=== PATIENT | male | born 1945 | race Caucasian/White ===

== ENCOUNTER → 2017-01-19 | Outpatient (CLI) | payer MEDICARE, BC ==
--- NOTE | 2017-01-19 15:49 | XR ---
EXAMINATION TYPE: XR chest 2V DATE OF EXAM: 01/19/2017 COMPARISON: Prior chest x-ray 12/25/2013 HISTORY: Aortic coronary bypass graft TECHNIQUE: Frontal and lateral views of the chest are obtained. FINDINGS: There is no focal air space opacity, pleural effusion, or pneumothorax seen. The cardiac silhouette size is stable, enlarged. Patient is post median sternotomy. Epicardial pacing leads are p resent. Prominent lung volume may be indicative of COPD. The osseous structures are intact. IMPRESSION: No acute cardiopulmonary process.
== END | disposition home or self-care (01) ==
LOC: RADXRMAIN 09:19
PROVIDERS: ATTEND Internal Medicine Interventional Cardiology
DX: Z09 Encounter for follow-up examination after completed treatment for conditions other than malignant neoplasm (principal); Z95.1 Presence of aortocoronary bypass graft
CPT/HCPCS: 71020

== ENCOUNTER 2017-05-25 07:11 | Day surgery (SDC) | payer MEDICARE, BC ==
[2017-05-19 13:35] VITALS: BMI 21.9
[~2017-05-25 07:11] MED LIST: LACTATED RINGERS 1,000 ML IV SCH; MOXIFLOXACIN HCL 0.5% DROPS 3 ML BTL OP ONE; TETRACAINE 0.5% OPHTH (PF) DROPS 4 ML BTL OP ONE; TIMOLOL 0.5% OPHTH DROPS 5 ML BTL OP ONE
[2017-05-25] MEDS: CYCLOPENTOLATE 1% OPHTH SOLN 2 ML BTL OP ONE ×3 (07:54→08:11)
[2017-05-25] MEDS: PHENYLEPHRINE 2.5% OPHTH DRP 2ML OP NR ×3 (07:57→08:14)
[2017-05-25 08:10] LABS: Glucose,Whole Blood 106 mg/dL (75-99)
[2017-05-25 08:14] VITALS: TEMP 98.2
[2017-05-25] MEDS ORDERED: LIDOCAINE 1% 20 ML VIAL (10MG/ML) FOR IV START INTRADERMA ONE (08:14)
[2017-05-25] MEDS ORDERED: fentaNYL (PF) 50 MCG/ML 2 ML AMP ONE (08:56)
[2017-05-25] MEDS ORDERED: MIDAZOLAM 2 MG/2 ML VIAL ONE (08:56)
[2017-05-25] MEDS ORDERED: LIDOCAINE 1% (PF) 10MG/ML VIAL SQ ONE (09:08)
[2017-05-25] MEDS ORDERED: BALANCED SALT IRRIG SOLN COMB2 15 ML IRRIG.SOLN INTRAOCULA ONE (09:08)
[2017-05-25] MEDS ORDERED: DUOVISC KIT (GREEN BOX) INTRAOCULA ONE (09:09)
--- NOTE | 2017-05-25 09:21 | P.OP ---
Date of Procedure: 05/25/17 Preoperative Diagnosis: NS & CS & PSC Postoperative Diagnosis: same Procedure(s) Performed: PIOL, OD Implants: PCB00 22.00 Anesthesia: MAC Surgeon: Gurdeep Virgen Estimated Blood Loss (ml): 0 Pathology: none sent Condition: stable Disposition: same day Indications for Procedure: blurry vision Operative Findings: No complications
[2017-05-25 10:05] VITALS: RESP 18
[2017-05-25 10:07] VITALS: BP 180/69; PULSE 62
--- NOTE | 2017-05-25 19:35 | OP ---
OPERATIVE REPORT DATE OF SURGERY: 05/25/2017. PROCEDURE: Phacoemulsification of cataract and intraocular lens implant of the right eye. PREOPERATIVE DIAGNOSIS: Nuclear sclerosis, cortical sclerosis. POSTOPERATIVE DIAGNOSIS: Subcapsular cataract. ESTIMATED BLOOD LOSS:: Zero. SPECIMEN TAKEN:: None. NARRATIVE:: After obtaining the appropriate consent, the patient was brought to the operating room, where the patient was placed under cardiac monitoring and prepped and draped in the usual sterile manner. At the 11 o'clock position a 15-degree super sharp blade was used to create a paracentesis followed by instillation of 1% Xylocaine MPF 50:50 mix with BSS into the anterior chamber. This was followed by Duovisc to stabilize the anterior chamber. At the 9 o'clock position a self-sealing corneal flap incision was created using 2.8 mm keena keratome. A cystotome was used to initiate a continuous tear capsulorrhexis which was completed with the Utrata forceps. A Binkhorst cannula was used to hydrodissect the lens nucleus followed by hydrodelineation. Phacoemulsification of the lens was performed utilizing phaco-chop in 16.89 seconds at 11% power. The remaining cortical material was removed using the irrigation aspiration mode followed by additional 1% Xylocaine MPF into the anterior chamber followed by viscoelastic to stabilize the capsular bag. An HARVINDER PCB 00 22.0 diopter posterior chamber lens was placed into the capsular bag without difficulty. The remaining viscoelastic material was removed from the anterior chamber with the irrigation/aspiration. Balanced salt solution was used to normalize the intraocular pressure. The incision was checked for watertight integrity. The patient then received two drops of 0.5% timolol followed by two drops Vigamox, was lightly patched and shielded in the usual manner. There were no complications from the procedure. The patient tolerated the procedure well and was returned to recovery in good condition. MMODL / IJN: [id number] /
== END 2017-05-25 10:07 | disposition home or self-care (01) ==
LOC: OR 07:11
PROVIDERS: ATTEND Ophthalmology
DX: H25.13 Age-related nuclear cataract, bilateral (principal); H35.033 Hypertensive retinopathy, bilateral; I10 Essential (primary) hypertension; H52.03 Hypermetropia, bilateral; E78.5 Hyperlipidemia, unspecified; J44.9 Chronic obstructive pulmonary disease, unspecified; Z87.891 Personal history of nicotine dependence; M19.90 Unspecified osteoarthritis, unspecified site; Z79.82 Long term (current) use of aspirin; Z79.891 Long term (current) use of opiate analgesic; Z79.899 Other long term (current) drug therapy; Z91.018 Allergy to other foods
CPT/HCPCS: 66984; C1780; J2250; J3010; J2001

== ENCOUNTER → 2017-07-13 | Day surgery (SDC) | payer MEDICARE, BC ==
[2017-07-07 15:58] VITALS: BMI 21.9
[~2017-07-13] MED LIST changes: +LIDOCAINE 1% 20 ML VIAL (10MG/ML) FOR IV START INTRADERMA PRN; +LIDOCAINE 1% INJ 10MG/ML (20 ML MDV) ONE; -MOXIFLOXACIN HCL 0.5% DROPS 3 ML BTL OP ONE; +PROPOFOL 10 MG/ML 20 ML VIAL IV ONE; -TETRACAINE 0.5% OPHTH (PF) DROPS 4 ML BTL OP ONE; -TIMOLOL 0.5% OPHTH DROPS 5 ML BTL OP ONE
[2017-07-13 07:43] VITALS: RESP 16; TEMP 98.8
--- NOTE | 2017-07-13 08:11 | P.GSHP ---
History of Present Illness H&P Date: 07/13/17 CHIEF COMPLAINT: GERD and colon screen HISTORY OF PRESENT ILLNESS: The patient is a 72-year-old male who presents with gastroesophageal reflux disease and need for colon screen. Upper and lower endoscopy were offered for further evaluation and management. PAST MEDICAL HISTORY: Please see list. PAST SURGICAL HISTORY: Please see list. MEDICATIONS: Please see list. ALLERGIES: Please see list. SOCIAL HISTORY: No illicit drug use FAMILY HISTORY: No reports of Crohn disease or ulcerative colitis. REVIEW OF ORGAN SYSTEMS: CONSTITUTIONAL: No reports of fevers or chills. GI: Denies any blood in stools or constipation. PHYSICAL EXAM: VITAL SIGNS: Stable GENERAL: Well-developed pleasant in no acute distress. HEENT: No scleral icterus. Extraocular movements grossly intact. Moist buccal mucosa. NECK: Supple without lymphadenopathy. CHEST: Unlabored respirations. Equal bilateral excursions. CARDIOVASCULAR: Regular rate and rhythm. Distal 2+ pulses. ABDOMEN: Soft, nondistended. MUSCULOSKELETAL: No clubbing, cyanosis, or edema. ASSESSMENT: 1. Gastroesophageal reflux disease 2. Colon screen. PLAN: 1. Recommend proceeding with an upper and lower endoscopy Past Medical History Past Medical History: COPD, Hyperlipidemia, Hypertension, Myocardial Infarction (CA), Osteoarthritis (OA), Vascular Disorder Additional Past Medical History / Comment(s): migraines, poor circulation legs, occ "heart fluttering", SOB with activity, arthritis Last Myocardial Infarction Date:: 2006 History of Any Multi-Drug Resistant Organisms: None Reported Past Surgical History: Appendectomy, Coronary Bypass/CABG, Heart Catheterization With Stent Additional Past Surgical History / Comment(s): TRIPLE CABG 2006. STENTS PAT LEGS. EXC RT CATARACT 05/25/17. Past Anesthesia/Blood Transfusion Reactions: No Reported Reaction Date of Last Stent Placement:: 2004 Smoking Status: Current some day smoker - Past Family History Mother Family Medical History: Cancer Medications and Allergies Home Medications Medication Instructions Recorded Confirmed Type Atorvastatin [Lipitor] 80 mg PO DAILY 12/25/13 07/13/17 History Hydrocodone/Acetaminophen 1 tab PO Q6HR PRN 12/25/13 07/13/17 History [Hydrocodone/Acetaminophen 10-325] Metoprolol Tartrate [Lopressor] 50 mg PO BID 12/25/13 07/13/17 History amLODIPine BESYLATE [Norvasc] 5 mg PO DAILY 12/25/13 07/13/17 History hydrALAZINE HCL [Apresoline] 50 mg PO TID 12/25/13 07/13/17 History Aspirin [Adult Low Dose Aspirin EC] 81 mg PO QAM 05/19/17 07/13/17 History Budesonide-Formot 160-4.5 Mcg 2 puff INHALATION BID PRN 05/19/17 07/13/17 History [Symbicort 160-4.5 Mcg Inhaler] Cholecalciferol [Vitamin D3] 10,000 unit PO DAILY 07/07/17 07/13/17 History Allergies Allergy/AdvReac Type Severity Reaction Status Date / Time No Known Allergies Allergy Verified 07/13/17 07:30 Surgical - Exam Vital Signs Temp Pulse Resp BP Pulse Ox 98.8 F 74 16 182/79 98 07/13/17 07:42 07/13/17 07:42 07/13/17 07:42 07/13/17 07:42 07/13/17 07:42
--- NOTE | 2017-07-13 08:46 | P.PCN ---
Date of Procedure: 07/13/17 Description of Procedure: PREOPERATIVE DIAGNOSIS: History of hematemesis History of esophageal ulcers POSTOPERATIVE DIAGNOSIS: History of hematemesis History of esophageal ulcers Gastritis with superficial bleeding Gastroesophageal reflux disease. Diaphragmatic hiatal hernia without obstruction. OPERATION: Esophagogastroduodenoscopy with biopsies along antrum. SURGEON: Mora Harris MD ANESTHESIA: MAC. INDICATIONS: The patient is a 72-year-old male who presents with a history of esophageal ulcers with bleeding. Benefits and risks of the procedure were described. Informed consent was obtained. DESCRIPTION: The patient was brought into the endoscopy suite and laid in the left lateral decubitus position. An Olympus gastroscope was passed along the posterior oropharynx down to the distal esophagus where the squamocolumnar junction was encountered at 40 cm from the incisors. The stomach was entered and bile reflux was found. Additional findings are listed below. Biopsies with cold forceps were obtained of the antrum. The first through third portion of the duodenum was examined and unremarkable. Retroflexion of the scope confirmed Hill grade 2 lower esophageal valve. The squamocolumnar junction demostrated LA grade B erosive esophagitis. The stomach was desufflated. The patient tolerated the procedure well. FINDINGS: Squamocolumnar junction 40 cm from the incisors. Diaphragmatic hiatus at 43 cm. Hiatal hernia 3 cm. Hill grade 2 lower esophageal valve. LA grade B erosive esophagitis. No active duodenitis. Gastritis with superficial bleeding. RECOMMENDATIONS: Further recommendations pending results of pathology report. Upper endoscopy as needed.
--- NOTE | 2017-07-13 09:02 | P.PCN ---
Date of Procedure: 07/13/17 Description of Procedure: PREOPERATIVE DIAGNOSIS: Colonoscopy screening. POSTOPERATIVE DIAGNOSIS: Colonoscopy screening. Multiple tubular adenomas throughout the colon. External hemorrhoids, grade 3. Internal hemorrhoids, grade 3 OPERATION: Colonoscopy to the ileocecal valve and appendiceal orifice. Colonoscopy with snare biopsies. Colonoscopy with cold forceps biopsies. SURGEON: Mora Harris MD. ANESTHESIA: MAC. INDICATIONS: The patient is a 72-year-old male who presents for colonoscopy screening. Last colonoscopy was 5 years ago. Benefits and risks were described and informed consent was obtained. DESCRIPTION OF PROCEDURE: The patient had undergone Gatorade, MiraLAX and Dulcolax prep. He had been brought into the operating room and laid in the left lateral decubitus position. After adequate intravenous sedation, the rectum was examined with 2% lidocaine jelly. The prostate was smooth and without abnormality. External hemorrhoids were encountered. The rectal tone was within normal limits. No lesions were palpated in the rectal vault. An Olympus colonoscope was advanced until the ileocecal valve and appendiceal orifice were clearly viewed. The prep was fair with visualization of the mucosal folds. The scope was removed with visualization of each mucosal fold. No scattered diverticulosis was encountered. Multiple colonic polyps were found and cold forcep biopsy or snare polypectomy. No evidence of focal colitis was found. Retroflexion of the scope demonstrated grade 3 internal hemorrhoids without active bleeding or inflammation. The colon was desufflated. The patient had tolerated the procedure well. Withdrawal time was over 6 minutes. FINDINGS: Internal hemorrhoids, grade 3 External hemorrhoids, grade 3. No arteriovenous malformations. Removal of 2 polyps: - Snare polypectomy at the cecum, 10 mm tubulovillous adenoma polyp. - Cold forceps biopsy at 50 cm from the anal verge, 4 mm polyp. No focal colitis. RECOMMENDATIONS: Repeat colonoscopy 1 year, 2019. Plan - Discharge Summary New Discharge Prescriptions: New Omeprazole 20 mg PO DAILY #30 capsule.dr Huitron Action hydrALAZINE HCL [Apresoline] 50 mg PO TID amLODIPine BESYLATE [Norvasc] 5 mg PO DAILY Metoprolol Tartrate [Lopressor] 50 mg PO BID Atorvastatin [Lipitor] 80 mg PO DAILY Hydrocodone/Acetaminophen [Hydrocodone/Acetaminophen 10-325] 1 tab PO Q6HR PRN PRN Reason: Pain Aspirin [Adult Low Dose Aspirin EC] 81 mg PO QAM Budesonide-Formot 160-4.5 Mcg [Symbicort 160-4.5 Mcg Inhaler] 2 puff INHALATION BID PRN PRN Reason: sob Cholecalciferol [Vitamin D3] 10,000 unit PO DAILY Discharge Medication List Atorvastatin [Lipitor] 80 mg PO DAILY 12/25/13 [History] Hydrocodone/Acetaminophen [Hydrocodone/Acetaminophen 10-325] 1 tab PO Q6HR PRN 12/25/13 [History] Metoprolol Tartrate [Lopressor] 50 mg PO BID 12/25/13 [History] amLODIPine BESYLATE [Norvasc] 5 mg PO DAILY 12/25/13 [History] hydrALAZINE HCL [Apresoline] 50 mg PO TID 12/25/13 [History] Aspirin [Adult Low Dose Aspirin EC] 81 mg PO QAM 05/19/17 [History] Budesonide-Formot 160-4.5 Mcg [Symbicort 160-4.5 Mcg Inhaler] 2 puff INHALATION BID PRN 05/19/17 [History] Cholecalciferol [Vitamin D3] 10,000 unit PO DAILY 07/07/17 [History] Omeprazole 20 mg PO DAILY #30 capsule. 07/13/17 [Rx]
[2017-07-13 09:25] VITALS: BP 179/76; PULSE 70
--- NOTE | 2017-07-15 02:15 | CDI ---
Outpatient Documentation Clarification Form Date: 07/15/2017 CDS/Linker Up Name: Camden Oconnell Phone: If any questions, call Jordyn Ash Data Integrity Analyst at [phone] Patient Name: Antonio Duncan Admit Date: 07/13/2017 Discharge Date: 07/13/2017 ATTENTION: The [facility] Coding Staff appreciate your assistance in clarifying documentation. Please respond to the clarification below the line at the bottom and electronically sign. The [facility] Coding staff will review the response and follow-up if needed. Please note: Queries are made part of the Legal Health Record. If you have any questions, please contact the Data Integrity Analyst. Dear Dr. Harris, As per operative notes polypectomy was done. Snare polypectomy was done at cecum, cold biopsy forceps polypectomy was done at 50cm from the anal verge, 4mm polyp. Based on your clinical opinion please mention which anatomical location of colon represent 50cm from the anal verge. Thank you for your kind consideration. PLEASE SEE AMENDED REPORT...DESCENDING COLON MTDD
== END | disposition home or self-care (01) ==
LOC: ORWHC2ENDO 06:57
PROVIDERS: ATTEND Surgery Plastic and Reconstructive Surgery
DX: Z12.11 Encounter for screening for malignant neoplasm of colon (principal); D12.4 Benign neoplasm of descending colon; D12.0 Benign neoplasm of cecum; K29.71 Gastritis, unspecified, with bleeding; K21.9 Gastro-esophageal reflux disease without esophagitis; I25.2 Old myocardial infarction; E78.5 Hyperlipidemia, unspecified; I10 Essential (primary) hypertension; K22.10 Ulcer of esophagus without bleeding; I25.10 Atherosclerotic heart disease of native coronary artery without angina pectoris; J44.9 Chronic obstructive pulmonary disease, unspecified; K64.4 Residual hemorrhoidal skin tags; K64.2 Third degree hemorrhoids; F17.200 Nicotine dependence, unspecified, uncomplicated; K44.9 Diaphragmatic hernia without obstruction or gangrene; M19.90 Unspecified osteoarthritis, unspecified site; G43.909 Migraine, unspecified, not intractable, without status migrainosus; Z95.1 Presence of aortocoronary bypass graft; Z95.5 Presence of coronary angioplasty implant and graft; Z79.899 Other long term (current) drug therapy; Z79.82 Long term (current) use of aspirin; Z87.11 Personal history of peptic ulcer disease
CPT/HCPCS: 88305; 45385; 45380; 43239; J2001; J2704

== ENCOUNTER 2017-08-03 06:31 | Day surgery (SDC) | payer MEDICARE, BC ==
[2017-07-28 12:44] VITALS: BMI 21.9
[~2017-08-03 06:31] MED LIST changes: +DEXAMETHASONE SOD PHOSPHATE 10 MG/ML 1 ML VIAL IV ONE; -LIDOCAINE 1% 20 ML VIAL (10MG/ML) FOR IV START INTRADERMA PRN; -LIDOCAINE 1% INJ 10MG/ML (20 ML MDV) ONE; +MORPHINE SULFATE 4 MG/ML SYRINGE IV PRN; +MOXIFLOXACIN HCL 0.5% DROPS 3 ML BTL OP ONE; +ONDANSETRON ODT 4 MG TAB PO ONE; -PROPOFOL 10 MG/ML 20 ML VIAL IV ONE; +TETRACAINE 0.5% OPHTH (PF) DROPS 4 ML BTL OP ONE; +TIMOLOL 0.5% OPHTH DROPS 5 ML BTL OP ONE
[2017-08-03] MEDS: CYCLOPENTOLATE 1% OPHTH SOLN 2 ML BTL OP ONE ×3 (07:02→07:13)
[2017-08-03] MEDS: PHENYLEPHRINE 2.5% OPHTH DRP 2ML OP NR ×3 (07:05→07:16)
[2017-08-03 07:27] VITALS: RESP 18; TEMP 99.2
[2017-08-03] MEDS ORDERED: hydrALAZINE HCL 20 MG/ML 1 ML VIAL ONE (08:06)
[2017-08-03] MEDS ORDERED: MIDAZOLAM 2 MG/2 ML VIAL ONE (08:06)
[2017-08-03] MEDS ORDERED: fentaNYL (PF) 50 MCG/ML 2 ML AMP ONE (08:06)
[2017-08-03] MEDS ORDERED: LACTATED RINGERS 1,000 ML IV ONE (08:06)
[2017-08-03] MEDS ORDERED: HYALURONATE SODIUM INTRAOCULAR 1 EACH SYRINGE (12MG/ML) INTRAOCULA ONE (08:11)
[2017-08-03] MEDS ORDERED: LIDOCAINE 1% (PF) 10MG/ML VIAL MISCELLANE ONE (08:12)
[2017-08-03] MEDS ORDERED: BALANCED SALT IRRIG SOLN COMB2 15 ML IRRIG.SOLN INTRAOCULA ONE (08:12)
[2017-08-03] MEDS ORDERED: EPINEPHrine (PF) 0.3 ML in BALANCED SALT IRRIG SOLN COMB2 500 ML IRRIGATION ONE (08:13)
--- NOTE | 2017-08-03 08:37 | P.OP ---
Date of Procedure: 08/03/17 Preoperative Diagnosis: Ns & CS Postoperative Diagnosis: same Procedure(s) Performed: PIOL, OS Implants: PCB0 22.50 Anesthesia: MAC Surgeon: Gurdeep Virgen Estimated Blood Loss (ml): 0 Pathology: none sent Condition: stable Disposition: same day Indications for Procedure: blurry vision Operative Findings: same
[2017-08-03] MEDS ORDERED: hydrALAZINE HCL 20 MG/ML 1 ML VIAL IVP ONE ×2 (09:16→09:43)
[2017-08-03 10:01] VITALS: BP 183/69; PULSE 63
--- NOTE | 2017-08-03 14:17 | OP ---
OPERATIVE REPORT DATE OF SURGERY: August 03, 2017. PROCEDURE PERFORMED: Phacoemulsification of cataract and intraocular lens implant of the left eye. PATHOLOGICAL TECHNICIAN:: PREOPERATIVE DIAGNOSES: Nuclear sclerosis. Cortical sclerosis. POSTOPERATIVE DIAGNOSES: Nuclear sclerosis. Cortical sclerosis. OPERATION:: Clear cornea phacoemulsification of cataract OS eye. ESTIMATED BLOOD LOSS:: Zero. SPECIMEN TAKEN:: None. NARRATIVE:: After obtaining the appropriate consent, the patient was brought to the Operating Room where the patient was placed under cardiac monitoring and prepped and draped in the usual sterile manner. At the 5 o'clock position a 15 degree super sharp blade was used to create a paracentesis followed by instillation of 1% Xylocaine MPF 50:50 mix with BSS into the anterior chamber. This was followed by Amvisc to stabilize the anterior chamber. At the 3 o'clock position a self-sealing corneal flap incision was created using 2.8 mm keena keratome. A cystatome was used to initiate a continuous tear capsulorrhexis which was completed with the Utrata forceps. A Binkhorst cannula was used to hydrodissect the lens nucleus followed by hydrodelineation. Phacoemulsification of the lens was performed utilizing phacochop in 13.98 Seconds at 10 % power. The remaining cortical material was removed using the irrigation aspiration mode followed by additional 1% Xylocaine MPF into the anterior chamber followed by viscoelastic to stabilize the capsular bag. An HARVINDER PZB 00 22.5 diopter posterior chamber lens was placed into the capsular bag without difficulty. The remaining viscoelastic material was removed from the anterior chamber with the irrigation/aspiration. Balanced salt solution was used to normalize the intraocular pressure. The incision was checked for watertight integrity. The patient then received two drops of 0.5% timolol followed by two drops Vigamox, was lightly patched and shielded in the usual manner. There were no complications from the procedure. The patient tolerated the procedure well and was returned to recovery in good condition. MMODL / IJN: [id number] /
== END 2017-08-03 10:15 | disposition home or self-care (01) ==
LOC: OR 06:31
PROVIDERS: ATTEND Ophthalmology
DX: H25.12 Age-related nuclear cataract, left eye (principal); I25.10 Atherosclerotic heart disease of native coronary artery without angina pectoris; I25.2 Old myocardial infarction; I10 Essential (primary) hypertension; E78.5 Hyperlipidemia, unspecified; I48.91 Unspecified atrial fibrillation; M19.90 Unspecified osteoarthritis, unspecified site; Z95.5 Presence of coronary angioplasty implant and graft; I73.9 Peripheral vascular disease, unspecified; Z79.82 Long term (current) use of aspirin; Z79.899 Other long term (current) drug therapy; Z95.1 Presence of aortocoronary bypass graft; Z82.61 Family history of arthritis; Z87.891 Personal history of nicotine dependence; Z98.41 Cataract extraction status, right eye
CPT/HCPCS: 66984; C1780; J2250; J0360; J0171; J3010; J2001

== ENCOUNTER 2017-10-26 04:41 | Inpatient (IN) | payer MEDICARE, BC ==
[2017-10-26] MEDS ORDERED: SODIUM CHLORIDE 0.9% 500 ML IV STA (04:54)
[2017-10-26] MEDS ORDERED: ALBUTEROL NEBULIZED 2.5 MG/3 ML INHALATION STA (04:54)
[2017-10-26] MEDS ORDERED: IPRATROPIUM 0.5 MG/2.5 ML NEBU INHALATION STA (04:54)
[2017-10-26] MEDS ORDERED: methylPREDNISolone SOD SUCCI 125 MG/2 ML VIAL IV STA (04:54)
[2017-10-26] MEDS ORDERED: hydrALAZINE HCL 20 MG/ML 1 ML VIAL IVP STA (04:59)
--- NOTE | 2017-10-26 04:59 | ED ---
General Adult HPI - General Source: patient, RN notes reviewed Mode of arrival: wheelchair Limitations: physical limitation <John Gunderson - Last Filed: 10/26/17 06:47> <John Kraus - Last Filed: 10/26/17 08:03> - General Chief complaint: Shortness of Breath Stated complaint: BRYSON Time Seen by Provider: 10/26/17 04:41 - History of Present Illness Initial comments: This is a 72-year-old male presents emergency department with past medical history significant for bypass surgery COPD and congestive heart failure. Patient states last couple days he's been out of his Ventolin inhaler. Patient comes in complaining of difficulty breathing 2. Patient denies any fever chills or cough. Patient denies any chest pain or palpitations. Patient denies abdominal pain patient denies nausea vomiting diarrhea. Patient denies any lightheadedness dizziness or near syncopal episode. Patient denies any headache patient denies numbness or weakness. (John Gunderson) - Related Data Home Medications Medication Instructions Recorded Confirmed Atorvastatin [Lipitor] 80 mg PO DAILY 12/25/13 10/26/17 Hydrocodone/Acetaminophen 1 tab PO Q6HR PRN 12/25/13 10/26/17 [Hydrocodone/Acetaminophen 10-325] Metoprolol Tartrate [Lopressor] 50 mg PO BID 12/25/13 10/26/17 amLODIPine BESYLATE [Norvasc] 5 mg PO DAILY 12/25/13 10/26/17 hydrALAZINE HCL [Apresoline] 50 mg PO TID 12/25/13 10/26/17 Aspirin [Adult Low Dose Aspirin EC] 81 mg PO QAM 05/19/17 10/26/17 Budesonide-Formot 160-4.5 Mcg 2 puff INHALATION RT-BID 05/19/17 10/26/17 [Symbicort 160-4.5 Mcg Inhaler] Albuterol Inhaler [Ventolin Hfa 1 - 2 puff INHALATION RT-Q6H PRN 10/26/17 Inhaler] Allergies Allergy/AdvReac Type Severity Reaction Status Date / Time No Known Allergies Allergy Verified 10/26/17 07:38 Review of Systems ROS Other: All systems not noted in ROS Statement are negative. <John Gunderson - Last Filed: 10/26/17 06:47> ROS Other: All systems not noted in ROS Statement are negative. <StephanieranjansamiraJohn Alfonso - Last Filed: 10/26/17 08:03> ROS Statement: Those systems with pertinent positive or pertinent negative responses have been documented in the HPI. Past Medical History Past Medical History: COPD, Hyperlipidemia, Hypertension, Myocardial Infarction ([place]), Osteoarthritis (OA), Vascular Disorder Additional Past Medical History / Comment(s): migraines, poor circulation legs, occ "heart fluttering", SOB with activity, arthritis Last Myocardial Infarction Date:: 2006 History of Any Multi-Drug Resistant Organisms: None Reported Past Surgical History: Appendectomy Additional Past Surgical History / Comment(s): TRIPLE CABG 2006. STENTS PAT LEGS. EXC bilat CATARACT 05/25/17., Past Anesthesia/Blood Transfusion Reactions: No Reported Reaction Date of Last Stent Placement:: 2004 Past Psychological History: No Psychological Hx Reported Smoking Status: Current every day smoker Past Alcohol Use History: None Reported Past Drug Use History: None Reported - Past Family History Mother Family Medical History: Cancer <John Gunderson - Last Filed: 10/26/17 06:47> General Exam Limitations: physical limitation <John Gunderson - Last Filed: 10/26/17 06:47> General appearance: alert, anxious, in distress Head exam: Present: atraumatic, normocephalic, normal inspection Eye exam: Present: normal appearance, PERRL, EOMI. Absent: scleral icterus, conjunctival injection, periorbital swelling ENT exam: Present: normal exam, mucous membranes moist Neck exam: Present: normal inspection. Absent: tenderness, meningismus, lymphadenopathy Respiratory exam: Present: respiratory distress, wheezes, accessory muscle use, decreased breath sounds, prolonged expiratory. Absent: rales, rhonchi, stridor Cardiovascular Exam: Present: regular rate, normal rhythm, normal heart sounds. Absent: systolic murmur, diastolic murmur, rubs, gallop, clicks GI/Abdominal exam: Present: soft, normal bowel sounds. Absent: distended, tenderness, guarding, rebound, rigid Extremities exam: Present: normal inspection, full ROM, normal capillary refill. Absent: tenderness, pedal edema, joint swelling, calf tenderness Back exam: Present: normal inspection Neurological exam: Present: alert, oriented X3, CN II-XII intact Psychiatric exam: Present: normal affect, normal mood Skin exam: Present: warm, dry, intact, normal color. Absent: rash <John Kraus - Last Filed: 10/26/17 08:03> - General Exam Comments Initial Comments: GENERAL: Patient is well-developed and well-nourished. Patient is nontoxic and well- hydrated and is in moderate distress. ENT: Neck is soft and supple. No significant lymphadenopathy is noted. Oropharynx is clear. Moist mucous membranes. Neck has full range of motion without eliciting any pain. EYES: The sclera were anicteric and conjunctiva were pink and moist. Extraocular movements were intact and pupils were equal round and reactive to light. Eyelids were unremarkable. PULMONARY: Patient is oxygenating at about 80% on room air. Patient is diffuse wheezing and decreased breath sounds. CARDIOVASCULAR: There is a regular rate and rhythm without any murmurs gallops or rubs. ABDOMEN: Soft and nontender with normal bowel sounds. No palpable organomegaly was noted. There is no palpable pulsatile mass. SKIN: Skin is clear with no lesions or rashes and otherwise unremarkable. NEUROLOGIC: Patient is alert and oriented x3. Cranial nerves II through XII are grossly intact. Motor and sensory are also intact. Normal speech, volume and content. Symmetrical smile. MUSCULOSKELETAL: Normal extremities with adequate strength and full range of motion. No lower extremity swelling or edema. No calf tenderness. LYMPHATICS: No significant lymphadenopathy is noted PSYCHIATRIC: Normal psychiatric evaluation. Normal interpersonal interactions appears functionally intact in deals appropriately with others. No signs of depression. No signs of anxiety. (John Gunderson) Course <John Gunderson - Last Filed: 10/26/17 06:47> <John Kraus - Last Filed: 10/26/17 08:03> Vital Signs 10/26/17 10/26/17 10/26/17 04:43 05:00 05:15 Temperature 97.7 F Pulse Rate 77 68 60 Respiratory 28 H 20 Rate Blood Pressure 211/51 171/76 O2 Sat by Pulse 79 L 94 L Oximetry 10/26/17 10/26/17 10/26/17 05:40 05:49 06:00 Temperature Pulse Rate 64 64 64 Respiratory 22 16 Rate Blood Pressure 172/74 199/81 O2 Sat by Pulse 90 L 95 Oximetry - Reevaluation(s) Reevaluation #1: 10/26/17 08:03 Patient had a persistent shortness of breath, will be given recurrent breathing treatments here in the emergency room (John Kraus) Medical Decision Making - Lab Data Result diagrams: 10/26/17 04:58 10/26/17 04:58 <John Gunderson - Last Filed: 10/26/17 06:47> - Lab Data Result diagrams: 10/26/17 04:58 10/26/17 04:58 - Radiology Data Radiology results: report reviewed (CTA of chest is positive CHF), image reviewed <John Kraus - Last Filed: 10/26/17 08:03> - Medical Decision Making EKG shows normal sinus rhythm at 64 bpm OH interval 244 QRS is under QT interval 444 QTC is 458. Patient's EKG shows no ST segment elevation or depression there is however some peaked T waves in the precordial leads. Which may be secondary to LVH Dr. Kraus will be taking over the care of this patient at 7 AM (John Gunderson) 72 male the ER for evaluation, QRS for secondary to multifactorial COPD, high- output heart failure secondary to anemia, patient is to be admitted for diuresis , breathing treatments, continued BiPAP (John Kraus) - Lab Data Lab Results 10/26/17 10/26/17 10/26/17 Range/Units 04:58 04:58 04:58 WBC (3.8-10.6) k/uL RBC (4.30-5.90) m/uL Hgb (13.0-17.5) gm/dL Hct (39.0-53.0) % MCV (80.0-100.0) fL MCH (25.0-35.0) pg MCHC (31.0-37.0) g/dL RDW (11.5-15.5) % Plt Count (150-450) k/uL Neutrophils % % Lymphocytes % % Monocytes % % Eosinophils % % Basophils % % Neutrophils # (1.3-7.7) k/uL Lymphocytes # (1.0-4.8) k/uL Monocytes # (0-1.0) k/uL Eosinophils # (0-0.7) k/uL Basophils # (0-0.2) k/uL Hypochromasia Anisocytosis PT 9.8 (9.0-12.0) sec INR 1.0 (<1.2) APTT 22.6 (22.0-30.0) sec D-Dimer 2.02 H (<0.60) mg/L FEU Sodium 143 (137-145) mmol/L Potassium 5.2 H (3.5-5.1) mmol/L Chloride 110 H (98-107) mmol/L Carbon Dioxide 21 L (22-30) mmol/L Anion Gap 12 mmol/L BUN 32 H (9-20) mg/dL Creatinine 1.47 H (0.66-1.25) mg/dL Est GFR (CKD-EPI)AfAm 54 (>60 ml/min/1.73 sqM) Est GFR (CKD-EPI)NonAf 46 (>60 ml/min/1.73 sqM) Glucose 153 H (74-99) mg/dL Calcium 9.3 (8.4-10.2) mg/dL Magnesium 2.4 H (1.6-2.3) mg/dL Total Bilirubin 0.8 (0.2-1.3) mg/dL AST 21 (17-59) U/L ALT 28 (21-72) U/L Alkaline Phosphatase 77 (38-126) U/L Total Creatine Kinase (55-170) U/L CK-MB (CK-2) (0.0-2.4) ng/mL CK-MB (CK-2) Rel Index Troponin I (0.000-0.034) ng/mL NT-Pro-B Natriuret Pep 2360 pg/mL Total Protein 6.5 (6.3-8.2) g/dL Albumin 4.1 (3.5-5.0) g/dL Blood Type Blood Type Recheck Antibody Screen Spec Expiration Date 10/26/17 10/26/17 10/26/17 Range/Units 04:58 04:58 04:58 WBC 9.7 (3.8-10.6) k/uL RBC 3.33 L (4.30-5.90) m/uL Hgb 8.7 L (13.0-17.5) gm/dL Hct 28.8 L (39.0-53.0) % MCV 86.4 (80.0-100.0) fL MCH 26.2 (25.0-35.0) pg MCHC 30.3 L (31.0-37.0) g/dL RDW 16.9 H (11.5-15.5) % Plt Count 287 (150-450) k/uL Neutrophils % 81 % Lymphocytes % 12 % Monocytes % 5 % Eosinophils % 0 % Basophils % 0 % Neutrophils # 7.8 H (1.3-7.7) k/uL Lymphocytes # 1.1 (1.0-4.8) k/uL Monocytes # 0.5 (0-1.0) k/uL Eosinophils # 0.0 (0-0.7) k/uL Basophils # 0.0 (0-0.2) k/uL Hypochromasia Marked Anisocytosis Slight PT (9.0-12.0) sec INR (<1.2) APTT (22.0-30.0) sec D-Dimer (<0.60) mg/L FEU Sodium (137-145) mmol/L Potassium (3.5-5.1) mmol/L Chloride (98-107) mmol/L Carbon Dioxide (22-30) mmol/L Anion Gap mmol/L BUN (9-20) mg/dL Creatinine (0.66-1.25) mg/dL Est GFR (CKD-EPI)AfAm (>60 ml/min/1.73 sqM) Est GFR (CKD-EPI)NonAf (>60 ml/min/1.73 sqM) Glucose (74-99) mg/dL Calcium (8.4-10.2) mg/dL Magnesium (1.6-2.3) mg/dL Total Bilirubin (0.2-1.3) mg/dL AST (17-59) U/L ALT (21-72) U/L Alkaline Phosphatase (38-126) U/L Total Creatine Kinase 94 (55-170) U/L CK-MB (CK-2) 1.3 (0.0-2.4) ng/mL CK-MB (CK-2) Rel Index 1.4 Troponin I 0.084 H* (0.000-0.034) ng/mL NT-Pro-B Natriuret Pep pg/mL Total Protein (6.3-8.2) g/dL Albumin (3.5-5.0) g/dL Blood Type A Positive Blood Type Recheck No Antibody Screen NEGATIVE Spec Expiration Date 10/29/2017 - 6435 Critical Care Time Critical Care Time: Yes Total Critical Care Time: 31 <John Kraus - Last Filed: 10/26/17 08:03> Disposition <John Gunderson - Last Filed: 10/26/17 06:47> Is patient prescribed a controlled substance at d/c from ED?: No <John Kraus - Last Filed: 10/26/17 08:03> Clinical Impression: Anemia, Acute exacerbation of chronic obstructive airways disease, Acute pulmonary edema, Congestive heart failure, Acute respiratory failure Disposition: ADMITTED IP TO THIS HOSP Condition: Serious Referrals: Víctor Smiley MD [Primary Care Provider] - 1-2 days
[2017-10-26 05:28] LABS: Anisocytosis Slight; Basophils % (A) 0 %; Eosinophils % (A) 0 %; HCT 28.8 % (39.0-53.0); HGB 8.7 gm/dL (13.0-17.5); Hypochromasia Marked; Lymphocytes # (A) 1.1 k/uL (1.0-4.8); Lymphocytes % (A) 12 %; MCH 26.2 pg (25.0-35.0); MCHC 30.3 g/dL (31.0-37.0); MCV 86.4 fL (80.0-100.0); Mean Platelet Volume 7.6; Monocytes # (A) 0.5 k/uL (0-1.0); Monocytes % (A) 5 %; Neutrophils # (A) 7.8 k/uL (1.3-7.7); Neutrophils % (A) 81 %; Platelet Count 287 k/uL (150-450); RBC 3.33 m/uL (4.30-5.90); RDW 16.9 % (11.5-15.5); WBC 9.7 k/uL (3.8-10.6)
[2017-10-26 05:37] LABS: Albumin 4.1 g/dL (3.5-5.0); Calcium 9.3 mg/dL (8.4-10.2); Magnesium 2.4 mg/dL (1.6-2.3); Potassium 5.2 mmol/L (3.5-5.1); Total Bilirubin 0.8 mg/dL (0.2-1.3); Total Protein 6.5 g/dL (6.3-8.2)
[2017-10-26 05:45] LABS: Partial Thromboplastin Time 22.6 sec (22.0-30.0); Prothrombin Time 9.8 sec (9.0-12.0)
[2017-10-26 06:08] LABS: D-Dimer 2.02 mg/L FEU (<0.60)
[2017-10-26 06:16] LABS: Creatine Kinase MB 1.3 ng/mL (0.0-2.4)
[2017-10-26 06:27] LABS: Troponin I 0.084 ng/mL (0.000-0.034)
--- NOTE | 2017-10-26 06:43 | XR ---
EXAM: XR Chest, 2 Views CLINICAL HISTORY: ITS.REASON XR Reason: difficulty breathing TECHNIQUE: Frontal and lateral views of the chest. COMPARISON: Chest x-ray dated 01/19/2017. FINDINGS: Lungs: Mild prominence of perihilar and interstitial structures suspicious for pulmonary edema/congestion. Underlying infection is possible, especially in the left lower lobe. Pleural space: Small right pleural effusion. No pneumothorax. Heart: Mild cardiomegaly. Mediastinum: Unremarkable. Bones/joints: Prior sternotomy. Moderate degenerative changes of the thoracic spine. Vasculature: Calcification of the aortic arch. IMPRESSION: 1. Small right pleural effusion. 2. Mild prominence of perihilar and interstitial structures suspicious for pulmonary edema/congestion. Underlying infection is possible, especially in the left lower lobe.
--- NOTE | 2017-10-26 07:58 | CT ---
EXAMINATION TYPE: CT chest angio for PE DATE OF EXAM: 10/26/2017 COMPARISON: Chest x-ray same date HISTORY: SOB CT DLP: 461 mGycm Automated exposure control for dose reduction was used. CONTRAST: CT Chest for pulmonary embolism performed with with IV Contrast, patient injected with 44 mL of Isovu e 370. FINDINGS: LUNGS: Bibasilar effusions are present with associated atelectasis. Interstitium is increased at the lung bases. Emphysematous changes are present within the lungs and are extensive. Some minimal inflam matory change suspected in the right upper lobe anteriorly, there may be some focal scarring axial im age 33 extending to the pleura. MEDIASTINUM: Borderline enlarged retrocaval pretracheal node is present, there are some small prevasc ular nodes. No filling defect evident to suggest pulmonary embolism, contrast bolus somewhat limited. AORTA: There are dense coronary artery calcifications, atheromatous calcifications present at the ao rta, there is no evident aneurysm or dissection. OTHER: Patient is post median sternotomy. Multiple calcifications present within the spleen compatib le with old granulomatous disease. IMPRESSION: Correlate for possible congestive heart failure with bilateral pleural effusions. Pulmonary embolism is not evident as described.
[2017-10-26] MEDS ORDERED: IPRATROPIUM-ALBUTEROL 3 ML NEB INHALATION STA (08:01)
[2017-10-26] MEDS: FUROSEMIDE 10 MG/ML 4 ML VIAL IV SCH ×2 (08:41→17:13)
[2017-10-26] MEDS: ENOXAPARIN 40 MG/0.4 ML SYRINGE SQ SCH (08:43)
[2017-10-26] MEDS ORDERED: FUROSEMIDE 10 MG/ML 4 ML VIAL IV STA (10:37)
--- NOTE | 2017-10-26 10:49 | P.HPIM ---
History of Present Illness H&P Date: 10/26/17 Chief Complaint: Shortness of breath The patient is a 72-year-old male with a past medical history of CABG , COPD and congestive heart failure that presents to the ER with chief complaints of progressive worsening shortness of breath over the last 2 days, associated with increasing wheezes. The patient denies any chest pain, lower extremity swelling, palpitations or cough, or subjective fevers chills or night sweats. He denies any abdominal pain, nausea vomiting or diarrhea. Other patient reports not being on oxygen at home and that his symptoms have not improved despite increasing usage of his rescue inhaler. On presentation the patient was apparently hypoxic on room air with documented oximetry at 79% on room air. He was placed on supplemental oxygen and then on BiPAP. He received a comprehensive workup in the ER and was started on systemic steroids, scheduled and when necessary breathing treatments, Lasix and hydralazine. In the ED he was noted to have significantly elevated blood pressures. Also review of his labs indicate elevated BNP at 2360, with a hemoglobin of 8.7 and a creatinine of 1.47 and the serum potassium level 5.2. Troponin of 0.084. Chest x-ray consistent with bilateral pleural effusion, subsequent CTA of the chest after having an elevated d-dimer was negative for PE but did suggest correlation for CHF. Patient was recommended for admission Past Medical History Past Medical History: Coronary Artery Disease (CAD), Chest Pain / Angina, Heart Failure, COPD, GERD/Reflux, GI Bleed, Hyperlipidemia, Hypertension, Myocardial Infarction ([place]), Osteoarthritis (OA), Pneumonia, Vascular Disorder Additional Past Medical History / Comment(s): Pneumonia/sepsis after appendectomy, chronic back pain, migraines, occ "heart fluttering", SOB with activity, PAD, hiatal hernia, gastric ulcer, lower GI bleed, colon polyp, hemorrhoids, bilateral tinnitis, past elbow/rib fractures. Last Myocardial Infarction Date:: 2006 History of Any Multi-Drug Resistant Organisms: None Reported Past Surgical History: Appendectomy, Coronary Bypass/CABG, Heart Catheterization With Stent Additional Past Surgical History / Comment(s): 07/2017 EGD/COLONOSCOPY WITH POLYPECTOMY, TRIPLE CABG 2006. PCI/STENT IN 2000. STENTS PAT LEGS. EXC bilat CATARACT 05/25/17. PAIN CLINIC PROCEDURES Past Anesthesia/Blood Transfusion Reactions: No Reported Reaction Date of Last Stent Placement:: 2000 Smoking Status: Former smoker - Past Family History Mother Family Medical History: Cancer, Osteoarthritis (OA) Medications and Allergies Home Medications Medication Instructions Recorded Confirmed Type Atorvastatin [Lipitor] 80 mg PO DAILY 12/25/13 10/26/17 History Hydrocodone/Acetaminophen 1 tab PO Q6HR PRN 12/25/13 10/26/17 History [Hydrocodone/Acetaminophen 10-325] Metoprolol Tartrate [Lopressor] 50 mg PO BID 12/25/13 10/26/17 History amLODIPine BESYLATE [Norvasc] 5 mg PO DAILY 12/25/13 10/26/17 History hydrALAZINE HCL [Apresoline] 50 mg PO TID 12/25/13 10/26/17 History Aspirin [Adult Low Dose Aspirin EC] 81 mg PO QAM 05/19/17 10/26/17 History Budesonide-Formot 160-4.5 Mcg 2 puff INHALATION RT-BID 05/19/17 10/26/17 History [Symbicort 160-4.5 Mcg Inhaler] Albuterol Inhaler [Ventolin Hfa 1 - 2 puff INHALATION RT-Q6H PRN 10/26/17 History Inhaler] Allergies Allergy/AdvReac Type Severity Reaction Status Date / Time No Known Allergies Allergy Verified 10/26/17 07:38 Physical Exam Vitals: Vital Signs Temp Pulse Resp BP Pulse Ox 10/26/17 10:34 97.9 F 67 17 190/79 98 10/26/17 08:48 179/76 10/26/17 08:45 65 14 194/78 97 10/26/17 06:00 64 16 199/81 95 10/26/17 05:49 64 22 172/74 90 L 10/26/17 05:40 64 10/26/17 05:15 60 20 171/76 94 L 10/26/17 05:00 68 10/26/17 04:43 97.7 F 77 28 H 211/51 79 L Intake and Output 10/25/17 10/26/17 10/26/17 22:59 06:59 14:59 Other: Weight 60.01 kg Constitutional: Respiratory distress on BiPAP, conversant, pleasant Eyes: Anicteric sclerae, moist conjunctiva, no lid-lag, PERRLA ENMT: NC/AT,Oropharynx clear, no erythema, exudates Neck:Supple, FROM, no masses, or JVD, No carotid bruits; No thyromegaly Lungs: Bibasilar crackles Clear to percussion, Normal respiratory effort, noted accessory muscle use Cardiovascular: Heart regular in rate and rhythm, No murmurs, gallops, or rubs no peripheral edema Abdominal: Soft Nontender, nom distended, no guarding, no rebound or rigidity, Normoactive bowel sounds No hepatomegaly, No splenomegaly, No palpable mass No abdominal wall hernia noted Skin: Normal temperature, tone, texture, turgor, No induration No subcutaneous nodules, No rash, lesions, No ulcers Extremities:No digital cyanosis No clubbing, Pedal pulses intact and symmetrical Radial pulses intact and symmetrical Normal gait and station, No calf tenderness Psychiatric: Alert and oriented to person, place and time, Appropriate affect Intact judgement Neuro: Muscles Strength 5/5 in all 4 extremities, Sensation to light touch grossly present throughout, Cranial nerves II-XII grossly intact. No focal sensory deficits Results CBC & Chem 7: 10/26/17 04:58 10/26/17 04:58 Labs: Abnormal Lab Results - Last 24 Hours (Table) 10/26/17 10/26/17 10/26/17 Range/Units 04:58 04:58 04:58 RBC (4.30-5.90) m/uL Hgb (13.0-17.5) gm/dL Hct (39.0-53.0) % MCHC (31.0-37.0) g/dL RDW (11.5-15.5) % Neutrophils # (1.3-7.7) k/uL D-Dimer 2.02 H (<0.60) mg/L FEU Potassium 5.2 H (3.5-5.1) mmol/L Chloride 110 H (98-107) mmol/L Carbon Dioxide 21 L (22-30) mmol/L BUN 32 H (9-20) mg/dL Creatinine 1.47 H (0.66-1.25) mg/dL Glucose 153 H (74-99) mg/dL Magnesium 2.4 H (1.6-2.3) mg/dL Troponin I 0.084 H* (0.000-0.034) ng/mL 10/26/17 Range/Units 04:58 RBC 3.33 L (4.30-5.90) m/uL Hgb 8.7 L (13.0-17.5) gm/dL Hct 28.8 L (39.0-53.0) % MCHC 30.3 L (31.0-37.0) g/dL RDW 16.9 H (11.5-15.5) % Neutrophils # 7.8 H (1.3-7.7) k/uL D-Dimer (<0.60) mg/L FEU Potassium (3.5-5.1) mmol/L Chloride (98-107) mmol/L Carbon Dioxide (22-30) mmol/L BUN (9-20) mg/dL Creatinine (0.66-1.25) mg/dL Glucose (74-99) mg/dL Magnesium (1.6-2.3) mg/dL Troponin I (0.000-0.034) ng/mL Thrombosis Risk Factor Assmnt - Choose All That Apply Any of the Below Risk Factors Present?: Yes Each Factor Represents 1 point: Abnormal pulmonary function (COPD), Heart failure (<1month), Serious lung disease incl. pneumonia (< 1month) Other Risk Factors: Yes Each Risk Factor Represents 2 Points: Age 61-74 years Other congenital or acquired thrombophilia - If yes, enter type in comment: No Thrombosis Risk Factor Assessment Total Risk Factor Score: 5 Thrombosis Risk Factor Assessment Level: High Risk Assessment and Plan (1) Acute respiratory failure with hypoxia Current Visit: Yes Status: Acute Code(s): J96.01 - ACUTE RESPIRATORY FAILURE WITH HYPOXIA SNOMED Code(s): 44152466 (2) Acute exacerbation of CHF (congestive heart failure) Current Visit: Yes Status: Acute Code(s): I50.9 - HEART FAILURE, UNSPECIFIED SNOMED Code(s): 65858397 (3) Pleural effusion Current Visit: Yes Status: Acute Code(s): J90 - PLEURAL EFFUSION, NOT ELSEWHERE CLASSIFIED SNOMED Code(s): 07609599 (4) Acute kidney injury Current Visit: Yes Status: Acute Code(s): N17.9 - ACUTE KIDNEY FAILURE, UNSPECIFIED SNOMED Code(s): 33618898 (5) Acute exacerbation of chronic obstructive airways disease Current Visit: Yes Status: Acute Code(s): J44.1 - CHRONIC OBSTRUCTIVE PULMONARY DISEASE W (ACUTE) EXACERBATION SNOMED Code(s): 670801700 (6) Anemia Current Visit: Yes Status: Acute Code(s): D64.9 - ANEMIA, UNSPECIFIED SNOMED Code(s): 913469501 Plan: The patient is admitted to the telemetry unit on 6 selective anticipated greater than 2 midnight stay with acute respiratory failure with hypoxia, multifactorial etiology secondary to acute COPD exacerbation superimposed on likely acute CHF exacerbation, and we'll continue the patient on BiPAP current FiO2 of 50%. We'll initiate the patient on scheduled and when necessary bronchodilator breathing treatments, continue systemic steroids with IV Solu- Medrol, CTA as it ruled out PE or any underlying infectious etiology. Will give the patient another dose of Lasix 40 mg IV 1 and continue with scheduled Lasix 40 mg every 8 hours, with daily weights, strict I's and O's and, 1.5 L fluid restriction. A plan to consult pulmonary for further recommendations we' ll also consult cardiology, as a patient does have elevated serum troponin likely secondary to demand ischemia from his hypertensive emergency. Restarted the patient on his home antihypertensive regimen of hydralazine and Norvasc and metoprolol. We'll continue to monitor his blood pressure closely. For his anemia will check a Hemoccult, and iron studies, patient does report recent colonoscopy done by Dr. Denis 2 weeks ago where he was noted to have 4 polyps. Continue monitor his clinical course CODE STATUS : Full code Next of kin/medical decision maker: Tammy Duncan [phone] DVT prophylaxis: SCDs
[2017-10-26] MEDS: IPRATROPIUM-ALBUTEROL 3 ML NEB INHALATION SCH ×4 (11:37→22:52)
[2017-10-26 11:39] LABS: Glucose,Whole Blood 157 mg/dL (75-99)
--- NOTE | 2017-10-26 11:50 | ECHOF ---
Referral Reason:CHF exacerbation MEASUREMENTS -------- HEIGHT: 170.2 cm WEIGHT: 59.9 kg BP: RVIDd: 2.5 cm (< 3.3) IVSd: 1.5 cm (0.6 - 1.1) LVIDd: 4.5 cm (3.9 - 5.3) LVPWd: 1.7 cm (0.6 - 1.1) IVSs: 1.6 cm LVIDs: 2.6 cm LVPWs: 2.3 cm LAESV Index (A-L): 36.39 ml/m Ao Diam: 2.8 cm (2.0 - 3.7) AV Cusp: 1.1 cm (1.5 - 2.6) LA Diam: 3.6 cm (2.7 - 3.8) MV EXCURSION: 24.295 mm (> 18.000) MV EF SLOPE: 131 mm/s (70 - 150) EPSS: 0.6 cm MV E Ronaldo: 1.69 m/s MV DecT: 184 ms MV A Ronaldo: 0.53 m/s MV E/A Ratio: 3.20 RAP: 20.00 mmHg RVSP: 42.79 mmHg FINDINGS -------- Sinus rhythm. This was a technically good study. The left ventricular size is normal. There is moderate concentric left ventricular hypertrophy. O verall left ventricular systolic function is normal with, an EF between 55 - 60 %. The right ventricle is normal in size and function. LA is moderately dilated 34-39 ml/m2 The right atrium is normal in size. Aortic valve is trileaflet and is mildly thickened. The mitral valve leaflets are mildly thickened. Moderate mitral regurgitation is present. Mild tricuspid regurgitation present. There is mild pulmonary hypertension. The right ventricular systolic pressure, as measured by Doppler, is 42.79mmHg. Pulmonic valve appears structurally normal. The aortic root size is normal. The inferior vena cava is dilated with no significant inspiratory collapse which is consistent estima emory right atrial pressure of >20 mmHg. The pericardium is normal. CONCLUSIONS -------- 1. Sinus rhythm. 2. This was a technically good study. 3. The left ventricular size is normal. 4. There is moderate concentric left ventricular hypertrophy. 5. Overall left ventricular systolic function is normal with, an EF between 55 - 60 %. 6. The right ventricle is normal in size and function. 7. LA is moderately dilated 34-39 ml/m2 8. The right atrium is normal in size. 9. Aortic valve is trileaflet and is mildly thickened. 10. The mitral valve leaflets are mildly thickened. 11. Moderate mitral regurgitation is present. 12. Mild tricuspid regurgitation present. 13. There is mild pulmonary hypertension. 14. The right ventricular systolic pressure, as measured by Doppler, is 42.79mmHg. 15. Pulmonic valve appears structurally normal. 16. The aortic root size is normal. 17. The inferior vena cava is dilated with no significant inspiratory collapse which is consistent es timated right atrial pressure of >20 mmHg. 18. The pericardium is normal. [employer]: Mariaa Anderson RDCS
[2017-10-26] MEDS: ASPIRIN 81 MG PO SCH (11:51)
[2017-10-26] MEDS: hydrALAZINE HCL 50 MG TAB PO SCH ×3 (11:51→21:53)
[2017-10-26] MEDS: methylPREDNISolone SOD SUCCI 125 MG/2 ML VIAL IV SCH ×2 (11:51→17:14)
[2017-10-26] MEDS: amLODIPine 5 MG TAB PO SCH (11:51)
[2017-10-26] MEDS: ATORVASTATIN 80 MG TAB PO SCH (11:51)
--- NOTE | 2017-10-26 12:54 | P.CNPUL ---
History of Present Illness Consult date: 10/26/17 Requesting physician: Ghassan Hutson Reason for consult: dyspnea, abnormal CXR/CT Chief complaint: Shortness of breath History of present illness: This is a pleasant 72-year-old gentleman follows with Dr. Smiley as his primary care physician. He has a history of coronary artery disease with previous coronary artery bypass grafting 3 in 2006, peripheral vascular disease with bilateral stent placements, GI bleed, hypertension, hyperlipidemia , osteoarthritis, migraines. He also has chronic and ongoing tobacco dependence of greater than 60 years with a diagnosis of COPD. He is maintained on Symbicort and albuterol. He has not been seen by a fitter's assistant in the past. He presented here to the emergency room early this morning with complaints of shortness of breath which started approximately 2 days ago. He had been out of his Ventolin rescue inhaler for some time. He denies any cough , congestion. No fever chills or night sweats. No nausea vomiting diarrhea. No chest pain. Just progressive shortness of breath. His initial O2 saturation was 79% on room air. He was hypertensive. Subsequently requiring BiPAP support set at 10/550% FiO2. Chest x-ray shows a small right pleural effusion with mild prominence of perihilar interstitial structures suspicious for pulmonary edema/congestion. Atelectasis of the left lower lobe. CT angiogram reveals bilateral pleural effusions right greater than left with associated atelectasis. There is evidence of emphysematous changes which are quite extensive. No pulmonary embolism. Echocardiogram reveals preserved left ventricular systolic function with ejection fraction 55-60%. No significant pulmonary hypertension. The results revealed WBC 9.7. Hemoglobin 8.7. Potassium 5.2 bicarb 21 creatinine 1.47. Troponin 0.084, 0.268. ProBNP 2360. EKG reveals no significant ST or T wave abnormalities. He is seen in consultation today on the selective care unit. He is awake and alert. He is tolerating the BiPAP currently. His only complaint is that of being thirsty. No worsening shortness of breath at this time. He denies any chest discomfort. No palpitations, lightheadedness or dizziness. Review of Systems All systems: negative Past Medical History Past Medical History: Coronary Artery Disease (CAD), Chest Pain / Angina, Heart Failure, COPD, GERD/Reflux, GI Bleed, Hyperlipidemia, Hypertension, Myocardial Infarction ([place]), Osteoarthritis (OA), Pneumonia, Vascular Disorder Additional Past Medical History / Comment(s): Pneumonia/sepsis after appendectomy, chronic back pain, migraines, occ "heart fluttering", SOB with activity, PAD, hiatal hernia, gastric ulcer, lower GI bleed, colon polyp, hemorrhoids, bilateral tinnitis, past elbow/rib fractures. Last Myocardial Infarction Date:: 2006 History of Any Multi-Drug Resistant Organisms: None Reported Past Surgical History: Appendectomy, Coronary Bypass/CABG, Heart Catheterization With Stent Additional Past Surgical History / Comment(s): 07/2017 EGD/COLONOSCOPY WITH POLYPECTOMY, TRIPLE CABG 2006. PCI/STENT IN 2000. STENTS PAT LEGS. EXC bilat CATARACT 05/25/17. PAIN CLINIC PROCEDURES Past Anesthesia/Blood Transfusion Reactions: No Reported Reaction Date of Last Stent Placement:: 2000 Smoking Status: Former smoker - Past Family History Mother Family Medical History: Cancer, Osteoarthritis (OA) Medications and Allergies Home Medications Medication Instructions Recorded Confirmed Type Atorvastatin [Lipitor] 80 mg PO DAILY 12/25/13 10/26/17 History Hydrocodone/Acetaminophen 1 tab PO Q6HR PRN 12/25/13 10/26/17 History [Hydrocodone/Acetaminophen 10-325] Metoprolol Tartrate [Lopressor] 50 mg PO BID 12/25/13 10/26/17 History amLODIPine BESYLATE [Norvasc] 5 mg PO DAILY 12/25/13 10/26/17 History hydrALAZINE HCL [Apresoline] 50 mg PO TID 12/25/13 10/26/17 History Aspirin [Adult Low Dose Aspirin EC] 81 mg PO QAM 05/19/17 10/26/17 History Budesonide-Formot 160-4.5 Mcg 2 puff INHALATION RT-BID 05/19/17 10/26/17 History [Symbicort 160-4.5 Mcg Inhaler] Albuterol Inhaler [Ventolin Hfa 1 - 2 puff INHALATION RT-Q6H PRN 10/26/17 History Inhaler] Allergies Allergy/AdvReac Type Severity Reaction Status Date / Time No Known Allergies Allergy Verified 10/26/17 07:38 Physical Exam Vitals: Vital Signs Temp Pulse Resp BP BP Pulse Ox 10/26/17 11:55 78 10/26/17 11:39 70 10/26/17 11:37 97.4 F L 16 188/80 96 10/26/17 10:34 97.9 F 67 17 190/79 98 10/26/17 08:48 179/76 10/26/17 08:45 65 14 194/78 97 10/26/17 06:00 64 16 199/81 95 10/26/17 05:49 64 22 172/74 90 L 10/26/17 05:40 64 10/26/17 05:15 60 20 171/76 94 L 10/26/17 05:00 68 10/26/17 04:43 97.7 F 77 28 H 211/51 79 L Intake and Output 10/25/17 10/26/17 10/26/17 22:59 06:59 14:59 Other: Weight 60.01 kg 60.781 kg GENERAL EXAM: Frail, cachectic. Alert, fairly comfortable in mild respiratory distress. HEAD: Normocephalic. EYES: Normal reaction of pupils, equal size. NOSE: Clear with pink turbinates. THROAT: No erythema or exudates. NECK: No masses, no JVD. CHEST: No chest wall deformity. LUNGS: Equal air entry with echoes in the posterior bases. Diminished. CVS: S1 and S2 normal with no audible murmur, regular rhythm. ABDOMEN: No hepatosplenomegaly, normal bowel sounds, no guarding or rigidity. SPINE: No scoliosis or deformity SKIN: No rashes CENTRAL NERVOUS SYSTEM: No focal deficits, tone is normal in all 4 extremities. EXTREMITIES: There is no peripheral edema. No clubbing, no cyanosis. Peripheral pulses are intact. Results - Laboratory Findings CBC and BMP: 10/26/17 04:58 10/26/17 04:58 PT/INR, D-dimer PT 9.8 sec (9.0-12.0) 10/26/17 04:58 INR 1.0 (<1.2) 10/26/17 04:58 D-Dimer 2.02 mg/L FEU (<0.60) H 10/26/17 04:58 Abnormal lab findings: Abnormal Labs 10/26/17 10/26/17 10/26/17 04:58 04:58 04:58 RBC Hgb Hct MCHC RDW Neutrophils # D-Dimer 2.02 H Potassium 5.2 H Chloride 110 H Carbon Dioxide 21 L BUN 32 H Creatinine 1.47 H Glucose 153 H POC Glucose (mg/dL) Magnesium 2.4 H Troponin I 0.084 H* 10/26/17 10/26/17 10/26/17 04:58 11:07 11:32 RBC 3.33 L Hgb 8.7 L Hct 28.8 L MCHC 30.3 L RDW 16.9 H Neutrophils # 7.8 H D-Dimer Potassium Chloride Carbon Dioxide BUN Creatinine Glucose POC Glucose (mg/dL) 157 H Magnesium Troponin I 0.268 H* - Diagnostic Findings Chest x-ray: image reviewed CT scan - chest: image reviewed Assessment and Plan Assessment: Impression: #1 Acute hypoxic respiratory failure secondary to an acute exacerbation of chronic obstructive pulmonary disease, acute exacerbation of diastolic congestive heart failure. #2 Chronic and ongoing tobacco dependence greater than 60 years. #3 Troponin leak. #4 History of coronary artery disease with previous coronary bypass grafting. #5 Peripheral vascular disease with bilateral stents to the lower extremities. #6 Acute renal failure. #7 Anemia of unclear etiology. History of GI bleed. #8 Hypertension. #9 Hyperlipidemia. Plan: The patient was seen and evaluated by Dr. Leavitt. Chest x-ray, CAT scans and the echocardiogram and labs were all reviewed. We'll go ahead and order ultrasound of the bilateral chest due to the pleural effusions right greater than left. We'll continue to diurese the patient with Lasix 40 mg IV push every 8 hours. Discontinue Symbicort utilize Pulmicort 1 mg twice a day and Perforomist inhalations twice a day. Continue DuoNeb inhalations every 4 hours. Continue IV Solu-Medrol every 6 hours. The patient is educated regarding the importance of complete smoking cessation. A NicoDerm patch will be applied. Lovenox for DVT prophylaxis. Protonix for GI prophylaxis. We'll attempt to wean off the BiPAP as tolerated. Upon discharge patient would benefit from a follow-up in our office to include full pulmonary function testing to evaluate the severity of his COPD and make further recommendations regarding maintenance medications. We will continue to follow. I, the cosigning physician, performed a history & physical examination of the patient. Lungs sounds with crackles in the bilateral posterior bases. Diminished. Maintaining good O2 saturations in the 90s on 2% FiO2 per BiPAP 01/13.. I discussed the assessment and plan of care with my nurse practitioner, Cintia Thomas. I attest to the above consultation as dictated by her. Time with Patient: Greater than 30
--- NOTE | 2017-10-26 14:17 | US ---
EXAMINATION TYPE: US chest DATE OF EXAM: 10/26/2017 COMPARISON: NONE CLINICAL HISTORY: Bilateral pleural effusion, right greater than lef. EXAM MEASUREMENTS: Right Pleural Effusion fluid pocket: 0.8 cm Right skin to fluid thickness: 5.1 cm Left Pleural Effusion fluid pocket: 1.6 cm Left skin to fluid thickness: 4.0 cm Right side marked for possible thoracentesis outside the dept. Left side marked for possible thoracentesis outside the dept. Pulmonologists are able to review the images in the patient?s EMR. IMPRESSIONS: Pleural effusions as noted.
--- NOTE | 2017-10-26 15:56 | P.CRDCN ---
History of Present Illness Consult date: 10/26/17 Requesting physician: Ghassan Hutson Reason for Consult (text): elevated troponin Chief complaint: progressively worsening shortness of breath History of present illness: This is a pleasant 72-year-old gentleman who follows with Dr. Arcos in the office with past medical history of CAD, status post CABG, COPD, congestive heart failure, previous [place], history of GI bleed, hyperlipidemia, hypertension and PAD with prior intervention done by Dr. Simeon. Presented to the emergency department with complaints of progressively worsening shortness of breath at home over the last few days as well as worsening wheezing. Upon presentation patient was hypoxic on room air with a pulse ox of 79% on room air. He was subsequently placed on BiPAP. Patient was found to have an elevated d-dimer and underwent CT of the chest which showed no evidence of pulmonary embolism suggested to correlate for possible congestive heart failure with bilateral pleural effusions. Chest x-ray showed small right pleural effusion, mild prominence of perihilar and interstitial structures suspicious for pulmonary edema/congestion with possible underlying infection especially in the left lower lobe. EKG shows sinus rhythm with nonspecific ST-T wave abnormalities. Echocardiogram with Doppler showed moderate concentric left ventricular hypertrophy with a normal LV systolic function with an ejection fraction between 55-60%, moderate mitral valve regurgitation, mild tricuspid regurgitation and mild pulmonary hypertension. Laboratory values show a hemoglobin of 8.7 his most recent available hemoglobin from January 2016 of 13.5. Other labs show potassium of 5.2, BUN of 32 creatinine 1.47, magnesium 2.4NT proBNP 2360 and troponin 0.084 and 0.268. On examination, patient is resting comfortably in bed with BiPAP in place. Patient verbalizes breathing is much better. Denies complaints of chest discomfort pain pressure or tightness. Denies swelling, dizziness, lightheadedness or syncope. Past Medical History Past Medical History: Coronary Artery Disease (CAD), Chest Pain / Angina, Heart Failure, COPD, GERD/Reflux, GI Bleed, Hyperlipidemia, Hypertension, Myocardial Infarction ([place]), Osteoarthritis (OA), Pneumonia, Vascular Disorder Additional Past Medical History / Comment(s): Pneumonia/sepsis after appendectomy, chronic back pain, migraines, occ "heart fluttering", SOB with activity, PAD, hiatal hernia, gastric ulcer, lower GI bleed, colon polyp, hemorrhoids, bilateral tinnitis, past elbow/rib fractures. Last Myocardial Infarction Date:: 2006 History of Any Multi-Drug Resistant Organisms: None Reported Past Surgical History: Appendectomy, Coronary Bypass/CABG, Heart Catheterization With Stent Additional Past Surgical History / Comment(s): 07/2017 EGD/COLONOSCOPY WITH POLYPECTOMY, TRIPLE CABG 2006. PCI/STENT IN 2000. STENTS PAT LEGS. EXC bilat CATARACT 05/25/17. PAIN CLINIC PROCEDURES Past Anesthesia/Blood Transfusion Reactions: No Reported Reaction Date of Last Stent Placement:: 2000 Smoking Status: Former smoker - Past Family History Mother Family Medical History: Cancer, Osteoarthritis (OA) Medications and Allergies Home Medications Medication Instructions Recorded Confirmed Type Atorvastatin [Lipitor] 80 mg PO DAILY 12/25/13 10/26/17 History Hydrocodone/Acetaminophen 1 tab PO Q6HR PRN 12/25/13 10/26/17 History [Hydrocodone/Acetaminophen 10-325] Metoprolol Tartrate [Lopressor] 50 mg PO BID 12/25/13 10/26/17 History amLODIPine BESYLATE [Norvasc] 5 mg PO DAILY 12/25/13 10/26/17 History hydrALAZINE HCL [Apresoline] 50 mg PO TID 12/25/13 10/26/17 History Aspirin [Adult Low Dose Aspirin EC] 81 mg PO QAM 05/19/17 10/26/17 History Budesonide-Formot 160-4.5 Mcg 2 puff INHALATION RT-BID 05/19/17 10/26/17 History [Symbicort 160-4.5 Mcg Inhaler] Albuterol Inhaler [Ventolin Hfa 1 - 2 puff INHALATION RT-Q6H PRN 10/26/17 History Inhaler] Allergies Allergy/AdvReac Type Severity Reaction Status Date / Time No Known Allergies Allergy Verified 10/26/17 07:38 Physical Exam Vitals: Vital Signs Temp Pulse Resp BP BP Pulse Ox 10/26/17 11:55 78 10/26/17 11:39 70 10/26/17 11:37 97.4 F L 16 188/80 96 10/26/17 10:34 97.9 F 67 17 190/79 98 10/26/17 08:48 179/76 10/26/17 08:45 65 14 194/78 97 10/26/17 06:00 64 16 199/81 95 10/26/17 05:49 64 22 172/74 90 L 10/26/17 05:40 64 10/26/17 05:15 60 20 171/76 94 L 10/26/17 05:00 68 10/26/17 04:43 97.7 F 77 28 H 211/51 79 L Intake and Output 10/25/17 10/26/17 10/26/17 22:59 06:59 14:59 Other: Weight 60.01 kg 60.781 kg PHYSICAL EXAMINATION: HEENT: Head is atraumatic, normocephalic. Pupils equal, round. Neck is supple. There is no elevated jugular venous pressure. HEART EXAMINATION: Heart sounds regular, S1 and S2 normal. No murmur or gallop heard. CHEST EXAMINATION: Lungs crackles to bilateral bases. No chest wall tenderness is noted on palpation or with deep breathing. ABDOMEN: Soft, nontender. Bowel sounds are heard. No organomegaly noted. EXTREMITIES: Diminished peripheral pulses with no evidence of peripheral edema and no calf tenderness noted. NEUROLOGIC patient is awake, alert and oriented x3. . Results 10/26/17 04:58 10/26/17 04:58 Cardiac Enzymes 10/26/17 10/26/17 10/26/17 Range/Units 04:58 04:58 11:07 AST 21 (17-59) U/L CK-MB (CK-2) 1.3 (0.0-2.4) ng/mL Troponin I 0.084 H* 0.268 H* (0.000-0.034) ng/mL Coagulation 10/26/17 Range/Units 04:58 PT 9.8 (9.0-12.0) sec APTT 22.6 (22.0-30.0) sec CBC 10/26/17 Range/Units 04:58 WBC 9.7 (3.8-10.6) k/uL RBC 3.33 L (4.30-5.90) m/uL Hgb 8.7 L (13.0-17.5) gm/dL Hct 28.8 L (39.0-53.0) % Plt Count 287 (150-450) k/uL Comprehensive Metabolic Panel 10/26/17 Range/Units 04:58 Sodium 143 (137-145) mmol/L Potassium 5.2 H (3.5-5.1) mmol/L Chloride 110 H (98-107) mmol/L Carbon Dioxide 21 L (22-30) mmol/L BUN 32 H (9-20) mg/dL Creatinine 1.47 H (0.66-1.25) mg/dL Glucose 153 H (74-99) mg/dL Calcium 9.3 (8.4-10.2) mg/dL AST 21 (17-59) U/L ALT 28 (21-72) U/L Alkaline Phosphatase 77 (38-126) U/L Total Protein 6.5 (6.3-8.2) g/dL Albumin 4.1 (3.5-5.0) g/dL Current Medications Generic Name Dose Route Start Last Admin Trade Name Freq PRN Reason Stop Dose Admin Albuterol/Ipratropium 3 ml 10/26/17 12:00 10/26/17 11:37 Duoneb 0.5 Mg-3 Mg/3 Ml Soln INHALATION 3 ml RT-Q4H [place]IST[place] Administration Amlodipine Besylate 5 mg 10/26/17 10:45 10/26/17 11:51 Norvasc PO 5 mg DAILY CALISTA Administration Aspirin 81 mg 10/26/17 10:45 10/26/17 11:51 Aspirin PO 81 mg QAM [place] Administration Atorvastatin Calcium 80 mg 10/26/17 10:45 10/26/17 11:51 Lipitor PO 80 mg DAILY CALISTA Administration Budesonide/Formoterol Fumarate 2 puff 10/26/17 20:00 Symbicort 160-4.5 Mcg Inhaler INHALATION RT-BID CALISTA Enoxaparin Sodium 40 mg 10/26/17 09:00 10/26/17 08:43 Lovenox SQ 40 mg DAILY [facility] Administration Furosemide 40 mg 10/26/17 08:00 10/26/17 08:41 Lasix IV 40 mg Q8H [place] Administration Hydralazine HCl 50 mg 10/26/17 10:45 10/26/17 11:51 Apresoline PO 50 mg TID CALIST[place] Administration Methylprednisolone Sodium Succinate 60 mg 10/26/17 12:00 10/26/17 11:51 Solu-Medrol IV 60 mg Q6HR [place] Administration Metoprolol Tartrate 50 mg 10/26/17 21:00 Lopressor PO BID CALISTA Intake and Output 07/10/26/17 10/26/17 22:59 06:59 14:59 Other: Weight 60.01 kg 60.781 kg Patient Weight 10/27/17 06:59 Weight 60.781 kg 10/26/17 04:58 10/26/17 04:58 Assessment and Plan Assessment: #1 acute hypoxic respiratory failure #2 acute and chronic diastolic congestive heart failure #3 pleural effusion #4 acute kidney injury #5 acute exacerbation of COPD #6 anemia #7 NSTEMI may be secondary to type II event due to hypoxia. Plan: From rural mail carrier perspective, continue to diurese the patient with Lasix 40 mg IV every 8 hours. Obtain third troponin level. We will Continue to monitor the patient right further recommendations accordingly. OPTICAL TECHNICIAN note has been reviewed, I agree with a documented findings and plan of care. Patient was seen and examined.
[2017-10-26 16:41] LABS: Glucose,Whole Blood 248 mg/dL (75-99)
[2017-10-26] MEDS: BUDESONIDE 1 MG/2 ML NEBU INHALATION SCH (19:35)
[2017-10-26] MEDS: FORMOTEROL FUMARATE 20 MCG/2 ML NEBU INHALATION SCH (19:35)
[2017-10-26] MEDS ORDERED: SYMBICORT 160-4.5 MCG INHALER INHALATION SCH (20:00)
[2017-10-26] MEDS: METOPROLOL TARTRATE 50 MG TAB PO SCH (20:03)
[2017-10-26 21:37] LABS: Glucose,Whole Blood 317 mg/dL (75-99)
[2017-10-26] MEDS: INSULIN ASPART 100 UNIT/ML 1 ML 10 ML VIAL SQ SCH (21:54)
[2017-10-27] MEDS: FUROSEMIDE 10 MG/ML 4 ML VIAL IV SCH ×3 (01:08→22:53)
[2017-10-27] MEDS: methylPREDNISolone SOD SUCCI 125 MG/2 ML VIAL IV SCH ×5 (01:08→22:55)
[2017-10-27 02:50] LABS: Iron Saturation 6.86 (15.00-50.00)
[2017-10-27] MEDS: IPRATROPIUM-ALBUTEROL 3 ML NEB INHALATION SCH ×5 (03:30→20:16)
[2017-10-27 06:11] LABS: Glucose,Whole Blood 164 mg/dL (75-99)
[2017-10-27 06:33] LABS: Anisocytosis Slight; Basophils % (A) 0 %; Eosinophils # (A) 0.1 k/uL (0-0.7); Eosinophils % (A) 0 %; HCT 27.4 % (39.0-53.0); HGB 8.2 gm/dL (13.0-17.5); Hypochromasia Moderate; Lymphocytes # (A) 0.6 k/uL (1.0-4.8); Lymphocytes % (A) 4 %; MCH 25.4 pg (25.0-35.0); MCV 84.7 fL (80.0-100.0); Mean Platelet Volume 6.9; Monocytes # (A) 0.4 k/uL (0-1.0); Monocytes % (A) 3 %; Neutrophils # (A) 12.8 k/uL (1.3-7.7); Neutrophils % (A) 93 %; Platelet Count 298 k/uL (150-450); RBC 3.23 m/uL (4.30-5.90); WBC 13.8 k/uL (3.8-10.6)
[2017-10-27] MEDS: INSULIN ASPART 100 UNIT/ML 1 ML 10 ML VIAL SQ SCH ×4 (06:37→22:54)
[2017-10-27] MEDS: hydrALAZINE HCL 50 MG TAB PO SCH ×3 (06:37→22:54)
[2017-10-27] MEDS: amLODIPine 5 MG TAB PO SCH (06:37)
[2017-10-27 06:52] LABS: Albumin 3.7 g/dL (3.5-5.0); Calcium 8.9 mg/dL (8.4-10.2); Potassium 3.9 mmol/L (3.5-5.1); Total Bilirubin 0.6 mg/dL (0.2-1.3); Total Protein 6.1 g/dL (6.3-8.2)
[2017-10-27] MEDS: FORMOTEROL FUMARATE 20 MCG/2 ML NEBU INHALATION SCH ×2 (08:16→20:16)
[2017-10-27] MEDS: BUDESONIDE 1 MG/2 ML NEBU INHALATION SCH ×2 (08:16→20:16)
[2017-10-27] MEDS: ASPIRIN 81 MG PO SCH (08:44)
[2017-10-27] MEDS: METOPROLOL TARTRATE 50 MG TAB PO SCH ×2 (08:44→22:54)
[2017-10-27] MEDS: ATORVASTATIN 80 MG TAB PO SCH (08:44)
[2017-10-27] MEDS: PANTOPRAZOLE 40 MG/10 ML VIAL IVP SCH (08:45)
--- NOTE | 2017-10-27 09:57 | P.PN ---
Subjective Progress Note Date: 10/27/17 Principal diagnosis: Shortness of breath Patient is a 72-year-old male with a past medical history of just of heart failure, COPD, coronary artery disease, hypertension, and dyslipidemia who presented to the emergency department with complaints of shortness of breath. In the ER he underwent an extensive evaluation. On arrival he was hypoxic at 79% on room air and hypertensive with a blood pressure of 211/51. His laboratory analysis showed anemia, hyperkalemia, acute kidney injury, and an anion gap metabolic acidosis. He was found have an acute exacerbation of COPD and acute exacerbation of CHF. He was started on breathing treatments, Lasix, and hydralazine. Chest x-ray showed bilateral pleural effusion. He is admitted to the [facility] for further monitoring. He was seen by pulmonary who recommended diuresis, Pulmicort, Solu-Medrol, and Lasix. He also required being placed on the BiPAP. He was seen by cardiology who recommended continuing with IV Lasix. He also was found have an elevated troponin which was felt to be secondary to a type II event or hypoxia. Echocardiogram was completed which showed a 55-60%. Patient seen and examined at bedside. He is feeling much improved this morning , but is still needing BiPAP. 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 He has been taking Dr. Arcos. He does not have a bowel movement yesterday but did not eat much. He denies any chest pain. He has no shortness of breath when on the BiPAP when he comes off he develops shortness of breath and chest pain. Objective - Vital Signs Vital signs: Vital Signs Temp 97.7 F 10/27/17 08:00 Pulse 72 10/27/17 08:39 Resp 24 10/27/17 04:00 BP 143/63 10/27/17 08:00 Pulse Ox 98 10/27/17 08:00 Intake & Output 10/26/17 10/27/17 10/27/17 18:59 06:59 18:59 Intake Total 250 Output Total 300 500 Balance -50 -500 Weight 60.781 kg Intake: IV 10 Invasive Line 1 10 Oral 240 Output: Urine 300 500 Other: Voiding Method Urinal Urinal - Exam General: non toxic, mild distress, appears at stated age Derm: warm, dry Head: atraumatic, normocephalic, symmetric Eyes: EOMI, no lid lag, anicteric sclera Mouth: no lip lesion, mucus membranes moist Cardiovascular: S1S2 reg, no murmur, positive posterior tibial pulse bilateral, Lungs: Decreased breath sounds bilateral with rhonchi right base, [, no accessory muscle use Abdominal: soft, nontender to palpation, no guarding, no appreciable organomegaly Ext: no gross muscle atrophy, no edema, no contractures Neuro: CN II-XI grossly intact, no focal neuro deficits Psych: Alert, oriented, appropriate affect - Labs CBC & Chem 7: 10/27/17 06:11 10/27/17 06:11 Labs: Abnormal Lab Results - Last 24 Hours (Table) 10/26/17 10/26/17 10/26/17 Range/Units 04:58 11:07 11:32 WBC (3.8-10.6) k/uL RBC (4.30-5.90) m/uL Hgb (13.0-17.5) gm/dL Hct (39.0-53.0) % MCHC (31.0-37.0) g/dL RDW (11.5-15.5) % Neutrophils # (1.3-7.7) k/uL Lymphocytes # (1.0-4.8) k/uL BUN (9-20) mg/dL Creatinine (0.66-1.25) mg/dL Glucose (74-99) mg/dL POC Glucose (mg/dL) 157 H (75-99) mg/dL Iron 24 L (65-175) ug/dL Iron Saturation 6.86 L (15.00-50.00) Troponin I 0.268 H* (0.000-0.034) ng/mL Total Protein (6.3-8.2) g/dL 10/26/17 10/26/17 10/26/17 Range/Units 16:38 16:51 21:36 WBC (3.8-10.6) k/uL RBC (4.30-5.90) m/uL Hgb (13.0-17.5) gm/dL Hct (39.0-53.0) % MCHC (31.0-37.0) g/dL RDW (11.5-15.5) % Neutrophils # (1.3-7.7) k/uL Lymphocytes # (1.0-4.8) k/uL BUN (9-20) mg/dL Creatinine (0.66-1.25) mg/dL Glucose (74-99) mg/dL POC Glucose (mg/dL) 248 H 317 H (75-99) mg/dL Iron (65-175) ug/dL Iron Saturation (15.00-50.00) Troponin I 0.316 H* (0.000-0.034) ng/mL Total Protein (6.3-8.2) g/dL 10/27/17 10/27/17 10/27/17 Range/Units 06:08 06:11 06:11 WBC 13.8 H (3.8-10.6) k/uL RBC 3.23 L (4.30-5.90) m/uL Hgb 8.2 L (13.0-17.5) gm/dL Hct 27.4 L (39.0-53.0) % MCHC 30.0 L (31.0-37.0) g/dL RDW 17.0 H (11.5-15.5) % Neutrophils # 12.8 H (1.3-7.7) k/uL Lymphocytes # 0.6 L (1.0-4.8) k/uL BUN 40 H (9-20) mg/dL Creatinine 1.57 H (0.66-1.25) mg/dL Glucose 133 H (74-99) mg/dL POC Glucose (mg/dL) 164 H (75-99) mg/dL Iron (65-175) ug/dL Iron Saturation (15.00-50.00) Troponin I (0.000-0.034) ng/mL Total Protein 6.1 L (6.3-8.2) g/dL Microbiology - Last 24 Hours (Table) 10/26/17 04:58 Blood Culture - Preliminary Blood No Growth after 24 hours Assessment and Plan Assessment: Acute exacerbation of diastolic CHF with 55-60% -Cardiology recommendations -Continue with diuresis, strict I's and O's, daily weight - not on ACEI at home and will not start at this time due to AIDEN right greater than left pleural effusion - diuresis -Pulmonary recommendations, possible thoracentesis today Acute exacerbation of COPD - Pulm recs appreciated - duoneb, perforomist, solumedranisha Acute hypoxic respiratory failure - treatment with BiPap and as above Acute kidney injury - avoid additional nephrotoxic agents - no IVF with CHF and hypoxic respiratory failure HTN urgency on arrival - norvasc, lasix, hydralazine, lopressor Normocytic anemia, iron deficiency anemia -will need further outpatient workup with PCP for possible sources of bleeding including hemoccult/colon - follow CBC - Fe supplementation Leukocytosis, likely reactive and due to steroids - follow CBC elevated troponins likly due to hypoxia - cardio recs - ASA, statin Hyperkalemia, resolved Non-anion gap metabolic acidosis, resolved DVT prophylaxis: Lovenox change to heparin Discussed with: Patient, nursing Anticipated discharge: 2-[address]: home A total of 35 minutes was spent on the care of this complex patient more than 50 % of the time was spent in counseling and care coordination.
--- NOTE | 2017-10-27 11:40 | P.PN ---
Subjective Progress Note Date: 10/27/17 Principal diagnosis: Acute hypoxic history failure secondary to an acute exacerbation of chronic obstructive pulmonary disease, acute exacerbation of diastolic congestive heart failure with bilateral pleural effusions. This is a pleasant 72-year-old gentleman follows with Dr. Smiley as his primary care physician. He has a history of coronary artery disease with previous coronary artery bypass grafting 3 in 2006, peripheral vascular disease with bilateral stent placements, GI bleed, hypertension, hyperlipidemia , osteoarthritis, migraines. He also has chronic and ongoing tobacco dependence of greater than 60 years with a diagnosis of COPD. He is maintained on Symbicort and albuterol. He has not been seen by a assisted living manager in the past. He presented here to the emergency room early this morning with complaints of shortness of breath which started approximately 2 days ago. He had been out of his Ventolin rescue inhaler for some time. He denies any cough , congestion. No fever chills or night sweats. No nausea vomiting diarrhea. No chest pain. Just progressive shortness of breath. His initial O2 saturation was 79% on room air. He was hypertensive. Subsequently requiring BiPAP support set at 10/550% FiO2. Chest x-ray shows a small right pleural effusion with mild prominence of perihilar interstitial structures suspicious for pulmonary edema/congestion. Atelectasis of the left lower lobe. CT angiogram reveals bilateral pleural effusions right greater than left with associated atelectasis. There is evidence of emphysematous changes which are quite extensive. No pulmonary embolism. Echocardiogram reveals preserved left ventricular systolic function with ejection fraction 55-60%. No significant pulmonary hypertension. The results revealed WBC 9.7. Hemoglobin 8.7. Potassium 5.2 bicarb 21 creatinine 1.47. Troponin 0.084, 0.268. ProBNP 2360. EKG reveals no significant ST or T wave abnormalities. He is seen in consultation today on the selective care unit. He is awake and alert. He is tolerating the BiPAP currently. His only complaint is that of being thirsty. No worsening shortness of breath at this time. He denies any chest discomfort. No palpitations, lightheadedness or dizziness. The patient is seen again today 10/27/2017 in follow-up on the selective care unit. He is currently awake and alert and resting fairly comfortably in bed. He remains on the BiPAP throughout the night and during the day intermittently. Last evening he was off for some time and his saturations were 8889%. Ultrasound of the chest does reveal small bilateral pleural effusions right side greater at 5 cm. He has been afebrile. White count 13.8. Hemoglobin 8.2. Creatinine 1.57. Objective - Vital Signs Vital signs: Vital Signs Temp 97.7 F 10/27/17 08:00 Pulse 72 10/27/17 08:39 Resp 24 10/27/17 04:00 BP 143/63 10/27/17 08:00 Pulse Ox 98 10/27/17 08:00 Intake & Output 10/26/17 10/27/17 10/27/17 18:59 06:59 18:59 Intake Total 250 Output Total 300 500 Balance -50 -500 Weight 60.781 kg Intake: IV 10 Invasive Line 1 10 Oral 240 Output: Urine 300 500 Other: Voiding Method Urinal Urinal - Exam GENERAL EXAM: Frail, cachectic. Alert, fairly comfortable in mild respiratory distress. HEAD: Normocephalic. EYES: Normal reaction of pupils, equal size. NOSE: Clear with pink turbinates. THROAT: No erythema or exudates. NECK: No masses, no JVD. CHEST: No chest wall deformity. LUNGS: Equal air entry with echoes in the posterior bases. Diminished. CVS: S1 and S2 normal with no audible murmur, regular rhythm. ABDOMEN: No hepatosplenomegaly, normal bowel sounds, no guarding or rigidity. SPINE: No scoliosis or deformity SKIN: No rashes CENTRAL NERVOUS SYSTEM: No focal deficits, tone is normal in all 4 extremities. EXTREMITIES: There is no peripheral edema. No clubbing, no cyanosis. Peripheral pulses are intact. - Labs CBC & Chem 7: 10/27/17 06:11 10/27/17 06:11 Labs: Abnormal Lab Results - Last 24 Hours (Table) 10/26/17 10/26/17 10/26/17 Range/Units 04:58 11:07 11:32 WBC (3.8-10.6) k/uL RBC (4.30-5.90) m/uL Hgb (13.0-17.5) gm/dL Hct (39.0-53.0) % MCHC (31.0-37.0) g/dL RDW (11.5-15.5) % Neutrophils # (1.3-7.7) k/uL Lymphocytes # (1.0-4.8) k/uL BUN (9-20) mg/dL Creatinine (0.66-1.25) mg/dL Glucose (74-99) mg/dL POC Glucose (mg/dL) 157 H (75-99) mg/dL Iron 24 L (65-175) ug/dL Iron Saturation 6.86 L (15.00-50.00) Troponin I 0.268 H* (0.000-0.034) ng/mL Total Protein (6.3-8.2) g/dL 10/26/17 10/26/17 10/26/17 Range/Units 16:38 16:51 21:36 WBC (3.8-10.6) k/uL RBC (4.30-5.90) m/uL Hgb (13.0-17.5) gm/dL Hct (39.0-53.0) % MCHC (31.0-37.0) g/dL RDW (11.5-15.5) % Neutrophils # (1.3-7.7) k/uL Lymphocytes # (1.0-4.8) k/uL BUN (9-20) mg/dL Creatinine (0.66-1.25) mg/dL Glucose (74-99) mg/dL POC Glucose (mg/dL) 248 H 317 H (75-99) mg/dL Iron (65-175) ug/dL Iron Saturation (15.00-50.00) Troponin I 0.316 H* (0.000-0.034) ng/mL Total Protein (6.3-8.2) g/dL 10/27/17 10/27/17 10/27/17 Range/Units 06:08 06:11 06:11 WBC 13.8 H (3.8-10.6) k/uL RBC 3.23 L (4.30-5.90) m/uL Hgb 8.2 L (13.0-17.5) gm/dL Hct 27.4 L (39.0-53.0) % MCHC 30.0 L (31.0-37.0) g/dL RDW 17.0 H (11.5-15.5) % Neutrophils # 12.8 H (1.3-7.7) k/uL Lymphocytes # 0.6 L (1.0-4.8) k/uL BUN 40 H (9-20) mg/dL Creatinine 1.57 H (0.66-1.25) mg/dL Glucose 133 H (74-99) mg/dL POC Glucose (mg/dL) 164 H (75-99) mg/dL Iron (65-175) ug/dL Iron Saturation (15.00-50.00) Troponin I (0.000-0.034) ng/mL Total Protein 6.1 L (6.3-8.2) g/dL Microbiology - Last 24 Hours (Table) 10/26/17 04:58 Blood Culture - Preliminary Blood No Growth after 24 hours Assessment and Plan Assessment: Impression: #1 Acute hypoxic respiratory failure secondary to an acute exacerbation of chronic obstructive pulmonary disease, acute exacerbation of diastolic congestive heart failure. #2 Chronic and ongoing tobacco dependence greater than 60 years. #3 Troponin leak. #4 History of coronary artery disease with previous coronary bypass grafting. #5 Peripheral vascular disease with bilateral stents to the lower extremities. #6 Acute renal failure. #7 Anemia of unclear etiology. History of GI bleed. #8 Hypertension. #9 Hyperlipidemia. Plan: The patient was seen and evaluated by Dr. Leavitt. Ultrasound of the chest was reviewed. We will go ahead and perform a right-sided thoracentesis. Fluid will be sent for analysis and cytology. We'll continue with his current treatment plan. We'll attempt to wean off the BiPAP as tolerated. We will continue to follow. I, the cosigning physician, performed a history & physical examination of the patient. Lungs sounds with crackles in the bilateral posterior bases. Diminished. Maintaining good O2 saturations in the 90s on 50% FiO2 per BiPAP .. I discussed the assessment and plan of care with my nurse practitioner, Cintia Thomas. I attest to the above consultation as dictated by her.
[2017-10-27 11:46] LABS: Glucose,Whole Blood 243 mg/dL (75-99)
--- NOTE | 2017-10-27 12:04 | P.PN ---
Subjective Progress Note Date: 10/27/17 Principal diagnosis: CHF secondary to diastole dysfunction this is a pleasant 72-year-old gentlemanwith a past medical history significant for CAD and status post CABG, COPD, heart failure with preserved LV function, as well as hypertension and dyslipidemia, was admitted to the hospital with acute hypoxic respiratory failure and the patient was diagnosed with COPD exacerbation as well as congestive heart failure exacerbation secondary to diastole dysfunction. He was started on IV Lasix. On follow-up with him today, he is still not feeling well. He still short of breath. The chest x-ray showed right pleural effusion and the ultrasound of the chest showed large right pleural effusion and the patient is in process to have right pleurocentesis later on today. Beside that hemodynamically he is stable. The troponin is slightly elevated which is likely related to hypoxemia and type II CA. He is on aspirin, statin, on beta kandis. The echocardiogram revealed normal LV function. Objective - Vital Signs Vital signs: Vital Signs Temp 97.7 F 10/27/17 08:00 Pulse 72 10/27/17 11:48 Resp 24 10/27/17 04:00 BP 143/63 10/27/17 08:00 Pulse Ox 98 10/27/17 08:00 Intake & Output 10/26/17 10/27/17 10/27/17 18:59 06:59 18:59 Intake Total 250 Output Total 300 500 Balance -50 -500 Weight 60.781 kg Intake: IV 10 Invasive Line 1 10 Oral 240 Output: Urine 300 500 Other: Voiding Method Urinal Urinal - Constitutional General appearance: Present: mild distress - Respiratory Respiratory: right: diminished, left: CTA - Cardiovascular Rhythm: regular Heart sounds: normal: S1, S2 - Labs CBC & Chem 7: 10/27/17 06:11 10/27/17 06:11 Labs: Abnormal Lab Results - Last 24 Hours (Table) 10/26/17 10/26/17 10/26/17 Range/Units 04:58 11:07 16:38 WBC (3.8-10.6) k/uL RBC (4.30-5.90) m/uL Hgb (13.0-17.5) gm/dL Hct (39.0-53.0) % MCHC (31.0-37.0) g/dL RDW (11.5-15.5) % Neutrophils # (1.3-7.7) k/uL Lymphocytes # (1.0-4.8) k/uL BUN (9-20) mg/dL Creatinine (0.66-1.25) mg/dL Glucose (74-99) mg/dL POC Glucose (mg/dL) 248 H (75-99) mg/dL Iron 24 L (65-175) ug/dL Iron Saturation 6.86 L (15.00-50.00) Troponin I 0.268 H* (0.000-0.034) ng/mL Total Protein (6.3-8.2) g/dL 10/26/17 10/26/17 10/27/17 Range/Units 16:51 21:36 06:08 WBC (3.8-10.6) k/uL RBC (4.30-5.90) m/uL Hgb (13.0-17.5) gm/dL Hct (39.0-53.0) % MCHC (31.0-37.0) g/dL RDW (11.5-15.5) % Neutrophils # (1.3-7.7) k/uL Lymphocytes # (1.0-4.8) k/uL BUN (9-20) mg/dL Creatinine (0.66-1.25) mg/dL Glucose (74-99) mg/dL POC Glucose (mg/dL) 317 H 164 H (75-99) mg/dL Iron (65-175) ug/dL Iron Saturation (15.00-50.00) Troponin I 0.316 H* (0.000-0.034) ng/mL Total Protein (6.3-8.2) g/dL 10/27/17 10/27/17 10/27/17 Range/Units 06:11 06:11 11:45 WBC 13.8 H (3.8-10.6) k/uL RBC 3.23 L (4.30-5.90) m/uL Hgb 8.2 L (13.0-17.5) gm/dL Hct 27.4 L (39.0-53.0) % MCHC 30.0 L (31.0-37.0) g/dL RDW 17.0 H (11.5-15.5) % Neutrophils # 12.8 H (1.3-7.7) k/uL Lymphocytes # 0.6 L (1.0-4.8) k/uL BUN 40 H (9-20) mg/dL Creatinine 1.57 H (0.66-1.25) mg/dL Glucose 133 H (74-99) mg/dL POC Glucose (mg/dL) 243 H (75-99) mg/dL Iron (65-175) ug/dL Iron Saturation (15.00-50.00) Troponin I (0.000-0.034) ng/mL Total Protein 6.1 L (6.3-8.2) g/dL Microbiology - Last 24 Hours (Table) 10/26/17 04:58 Blood Culture - Preliminary Blood No Growth after 24 hours Assessment and Plan Assessment: assessment #1 acute hypoxic respiratory failure #2 acute exacerbation of congestive heart failure secondary to diastole dysfunction #3 large right pleural effusion #4 CAD and status post CABG #5 multiple comorbid conditions Plan #1continue Lasix IV for additional 24 hours at least #2 the patient is in process of having a right pleurocentesis #3 continue the aspirin, statin, and metoprolol #4 follow-up with the patient.
--- NOTE | 2017-10-27 13:58 | XR ---
EXAMINATION TYPE: XR chest 1V portable DATE OF EXAM: 10/27/2017 Comparison: 10/26/2017 Clinical History: 72-year-old male with right-sided thoracentesis Findings: Median sternotomy wires are present with post CABG clips. Heart upper limits of normal in size. Hyper inflation with interstitial prominence. Vasculature shows improvement from 10/26/2017. There is a smal l left effusion. No significant residual right effusion seen on the frontal view. No appreciable pneu mothorax. Impression: 1. Interval aspiration of the right-sided pleural effusion effusion. No appreciable pneumothorax. 2. Increased, small left pleural effusion. 3. Suspect COPD and improving pulmonary vascular congestion.
[2017-10-27] MEDS: HYDROcodone/APAP 10-325MG 1 EACH TAB PO PRN (14:45)
[2017-10-27] MEDS: ENOXAPARIN 40 MG/0.4 ML SYRINGE SQ SCH (15:00)
[2017-10-27 15:16] LABS: Appearance,BF Cloudy; Color,BF Orange
--- NOTE | 2017-10-27 16:40 | PCN ---
PROCEDURE NOTE OPERATIVE PROCEDURE: Right-sided thoracentesis. PREOPERATIVE DIAGNOSIS: Right pleural effusion. POSTOPERATIVE DIAGNOSIS: Right pleural effusion. ANESTHESIA: Used 4 mL of 1% lidocaine. PROCEDURE: The patient was placed in a sitting upright position, the area below the right scapula was prepared in a sterile fashion and drapes were applied. The area of the fluid was earlier localized by ultrasound guidance. The area was at the level of the 9th intercostal space and tip of the scapula. This site was locally anesthetized. Then, a 26-gauge needle inserted at the same site, advanced into the pleural space. The fluid was localized with the needle. Then a small tiny incision was made, and I was able to insert a standard thoracentesis catheter and needle at the same site, advanced into the pleural space. Fluid was obtained. Catheter was advanced out of the needle and the needle was pulled out of the pleural space. Free-flowing fluid was removed, roughly 650 mL of serosanguineous fluid was removed from the right pleural space. The fluid was sent for different diagnostic studies. Procedure was well tolerated and no evidence of any immediate complications. MMODL / IJN: [id number] /
[2017-10-27 16:49] LABS: Nucleated Cells, Body Fluid 200 /uL; RBC, Body Fluid 8600 /uL
[2017-10-27 16:57] LABS: Glucose,Whole Blood 215 mg/dL (75-99)
[2017-10-27 16:58] LABS: Mononuclear WBC,Body Fluid 81 %; Polynuclear WBC,Body Fluid 19 %; Total Cells Counted,Body Fluid 100
[2017-10-27] MEDS: HEPARIN SODIUM,PORCINE 5,000 UNIT/ML 1 ML VIAL SQ SCH ×2 (17:12→22:54)
[2017-10-27 20:44] LABS: Glucose,Whole Blood 159 mg/dL (75-99)
[2017-10-28] MEDS ORDERED: HEPARIN SODIUM,PORCINE 5,000 UNIT/ML 1 ML VIAL ONE
[2017-10-28] MEDS ORDERED: methylPREDNISolone SOD SUCCI 125 MG/2 ML VIAL ONE
[2017-10-28] MEDS ORDERED: IPRATROPIUM-ALBUTEROL 3 ML NEB ONE
[2017-10-28] MEDS: IPRATROPIUM-ALBUTEROL 3 ML NEB INHALATION SCH ×7 (05:27→23:25)
[2017-10-28 05:38] LABS: Glucose,Whole Blood 221 mg/dL (75-99)
[2017-10-28 06:03] LABS: Anisocytosis Slight; HCT 26.9 % (39.0-53.0); HGB 8.3 gm/dL (13.0-17.5); Hypochromasia Moderate; MCH 26.1 pg (25.0-35.0); MCHC 30.7 g/dL (31.0-37.0); MCV 84.9 fL (80.0-100.0); Mean Platelet Volume 7.2; Platelet Count 295 k/uL (150-450); RBC 3.17 m/uL (4.30-5.90); RDW 17.1 % (11.5-15.5)
[2017-10-28] MEDS: methylPREDNISolone SOD SUCCI 125 MG/2 ML VIAL IV SCH ×4 (06:14→23:31)
[2017-10-28] MEDS: INSULIN ASPART 100 UNIT/ML 1 ML 10 ML VIAL SQ SCH ×4 (06:16→22:00)
[2017-10-28 06:32] LABS: Calcium 9.1 mg/dL (8.4-10.2); Magnesium 2.2 mg/dL (1.6-2.3); Potassium 3.9 mmol/L (3.5-5.1)
[2017-10-28] MEDS: BUDESONIDE 1 MG/2 ML NEBU INHALATION SCH ×2 (08:19→20:47)
[2017-10-28] MEDS: FORMOTEROL FUMARATE 20 MCG/2 ML NEBU INHALATION SCH ×2 (08:19→20:47)
[2017-10-28] MEDS: PANTOPRAZOLE 40 MG/10 ML VIAL IVP SCH (08:31)
[2017-10-28] MEDS: METOPROLOL TARTRATE 50 MG TAB PO SCH ×2 (08:32→18:15)
[2017-10-28] MEDS: FUROSEMIDE 10 MG/ML 4 ML VIAL IV SCH (08:32)
[2017-10-28] MEDS: HEPARIN SODIUM,PORCINE 5,000 UNIT/ML 1 ML VIAL SQ SCH ×3 (08:32→23:30)
[2017-10-28] MEDS: HYDROcodone/APAP 10-325MG 1 EACH TAB PO PRN (08:33)
[2017-10-28] MEDS: ASPIRIN 81 MG PO SCH (08:33)
[2017-10-28] MEDS: amLODIPine 5 MG TAB PO SCH (08:33)
[2017-10-28] MEDS: ATORVASTATIN 80 MG TAB PO SCH (08:34)
[2017-10-28] MEDS: hydrALAZINE HCL 50 MG TAB PO SCH ×3 (08:34→22:00)
--- NOTE | 2017-10-28 09:45 | P.PN ---
Subjective Progress Note Date: 10/28/17 Principal diagnosis: Shortness of breath Patient is a 72-year-old male with a past medical history of just of heart failure, COPD, coronary artery disease, hypertension, and dyslipidemia who presented to the emergency department with complaints of shortness of breath. In the ER he underwent an extensive evaluation. On arrival he was hypoxic at 79% on room air and hypertensive with a blood pressure of 211/51. His laboratory analysis showed anemia, hyperkalemia, acute kidney injury, and an anion gap metabolic acidosis. He was found have an acute exacerbation of COPD and acute exacerbation of CHF. He was started on breathing treatments, Lasix, and hydralazine. Chest x-ray showed bilateral pleural effusion. He is admitted to the [facility] for further monitoring. He was seen by pulmonary who recommended diuresis, Pulmicort, Solu-Medrol, and Lasix. He also required being placed on the BiPAP. He was seen by cardiology who recommended continuing with IV Lasix. He also was found have an elevated troponin which was felt to be secondary to a type II event or hypoxia. Echocardiogram was completed which showed a 55-60% and LVH. Kidney function started to decline and his fluid status had improved. His lasix was transitioned to PO. Patient seen and examined at bedside. Feeling more SOB off the BIPAP with increased chest pain. No nausea or vomiting. + BM yesterday. D/W patient and regarding current results, heart failure education, and anemia work up as outpatient. Objective - Vital Signs Vital signs: Vital Signs Temp 97.2 F L 10/27/17 22:50 Pulse 74 10/28/17 08:48 Resp 19 10/28/17 04:00 BP 150/64 10/28/17 04:00 Pulse Ox 95 10/28/17 08:21 Intake & Output 10/27/17 10/28/17 10/28/17 18:59 06:59 18:59 Intake Total 480 400 Output Total 300 1900 Balance 180 -1900 400 Intake: Oral 480 400 Output: Urine 300 1900 Other: Voiding Method Urinal # Bowel Movements 1 - Exam General: non toxic, mild distress, appears at stated age Derm: warm, dry Head: atraumatic, normocephalic, symmetric Eyes: EOMI, no lid lag, anicteric sclera Mouth: no lip lesion, mucus membranes moist Cardiovascular: S1S2 reg, no murmur, positive posterior tibial pulse bilateral, Lungs: faint bs b/l on rhonchi or wheeze, no accessory muscle use Abdominal: soft, nontender to palpation, no guarding, no appreciable organomegaly Ext: no gross muscle atrophy, no edema, no contractures Neuro: CN II-XI grossly intact, no focal neuro deficits Psych: Alert, oriented, appropriate affect - Labs CBC & Chem 7: 10/28/17 05:42 10/28/17 05:42 Labs: Abnormal Lab Results - Last 24 Hours (Table) 10/27/17 10/27/17 10/27/17 Range/Units 11:45 16:56 20:43 WBC (3.8-10.6) k/uL RBC (4.30-5.90) m/uL Hgb (13.0-17.5) gm/dL Hct (39.0-53.0) % MCHC (31.0-37.0) g/dL RDW (11.5-15.5) % Sodium (137-145) mmol/L BUN (9-20) mg/dL Creatinine (0.66-1.25) mg/dL Glucose (74-99) mg/dL POC Glucose (mg/dL) 243 H 215 H 159 H (75-99) mg/dL 10/28/17 10/28/17 10/28/17 Range/Units 05:36 05:42 05:42 WBC 20.0 H (3.8-10.6) k/uL RBC 3.17 L (4.30-5.90) m/uL Hgb 8.3 L (13.0-17.5) gm/dL Hct 26.9 L (39.0-53.0) % MCHC 30.7 L (31.0-37.0) g/dL RDW 17.1 H (11.5-15.5) % Sodium 136 L (137-145) mmol/L BUN 57 H (9-20) mg/dL Creatinine 2.00 H (0.66-1.25) mg/dL Glucose 185 H (74-99) mg/dL POC Glucose (mg/dL) 221 H (75-99) mg/dL Microbiology - Last 24 Hours (Table) 10/27/17 13:30 Gram Stain - Preliminary Pleural Fluid Body Fluid Culture - Preliminary 10/26/17 04:58 Blood Culture - Preliminary Blood No Growth after 48 hours Assessment and Plan Assessment: Acute kidney injury - avoid additional nephrotoxic agents - no IVF with CHF and hypoxic respiratory failure - D/C IV lasix and transition to PO right greater than left pleural effusion -s/p thoracentesis on 10/27 -Pulmonary recommendations - await cytology and cultures Acute exacerbation of COPD - Pulm recs appreciated - duoneb, perforomist, solumedrol Acute hypoxic respiratory failure - treatment with BiPap as needed and as above Acute exacerbation of diastolic CHF with 55-60%, now compensated -Cardiology recommendations -Continue with diuresis, strict I's and O's, daily weight - not on ACEI at home and will not start at this time due to AIDEN HTN urgency on arrival - norvasc, lasix, hydralazine, lopressor Normocytic anemia, iron deficiency anemia -will need further outpatient workup with PCP had an EGD and Colon with signs of bleeding seeing Dr. Denis. - follow CBC - Fe supplementation Leukocytosis, likely reactive and due to steroids - follow CBC elevated troponins likly due to hypoxia - cardio recs - ASA, statin Hyperkalemia, resolved Non-anion gap metabolic acidosis, resolved DVT prophylaxis: heparin Discussed with: Patient, nursing Anticipated discharge: 2-[address]: home A total of 35 minutes was spent on the care of this complex patient more than 50 % of the time was spent in counseling and care coordination.
[2017-10-28 11:27] LABS: Glucose,Whole Blood 253 mg/dL (75-99)
--- NOTE | 2017-10-28 11:30 | P.PN ---
Subjective Progress Note Date: 10/28/17 Principal diagnosis: CHF secondary to diastole dysfunction this is a pleasant 72-year-old gentlemanwith a past medical history significant for CAD and status post CABG, COPD, heart failure with preserved LV function, as well as hypertension and dyslipidemia, was admitted to the hospital with acute hypoxic respiratory failure and the patient was diagnosed with COPD exacerbation as well as congestive heart failure exacerbation secondary to diastole dysfunction. He was started on IV Lasix. On follow-up with the patient today, he is feeling better in terms of shortness of breath. He underwent right pleurocentesis yesterday after the ultrasound of the chest revealed large amount of pleural effusion. No chest pain or chest discomfort. He is hemodynamically stable beside being slightly hypertensive which is likely related to the IV steroids use. He is on Lasix by mouth. The echocardiogram revealed normal LV function. Objective - Vital Signs Vital signs: Vital Signs Temp 97.2 F L 10/27/17 22:50 Pulse 74 10/28/17 08:48 Resp 19 10/28/17 04:00 BP 150/64 10/28/17 04:00 Pulse Ox 95 10/28/17 08:21 Intake & Output 10/27/17 10/28/17 10/28/17 18:59 06:59 18:59 Intake Total 480 400 Output Total 300 1900 Balance 180 -1900 400 Intake: Oral 480 400 Output: Urine 300 1900 Other: Voiding Method Urinal # Bowel Movements 1 - Constitutional General appearance: Present: no acute distress - Respiratory Respiratory: bilateral: rhonchi - Cardiovascular Heart sounds: normal: S1, S2 - Labs CBC & Chem 7: 10/28/17 05:42 10/28/17 05:42 Labs: Abnormal Lab Results - Last 24 Hours (Table) 10/27/17 10/27/17 10/27/17 Range/Units 11:45 16:56 20:43 WBC (3.8-10.6) k/uL RBC (4.30-5.90) m/uL Hgb (13.0-17.5) gm/dL Hct (39.0-53.0) % MCHC (31.0-37.0) g/dL RDW (11.5-15.5) % Sodium (137-145) mmol/L BUN (9-20) mg/dL Creatinine (0.66-1.25) mg/dL Glucose (74-99) mg/dL POC Glucose (mg/dL) 243 H 215 H 159 H (75-99) mg/dL 10/28/17 10/28/17 10/28/17 Range/Units 05:36 05:42 05:42 WBC 20.0 H (3.8-10.6) k/uL RBC 3.17 L (4.30-5.90) m/uL Hgb 8.3 L (13.0-17.5) gm/dL Hct 26.9 L (39.0-53.0) % MCHC 30.7 L (31.0-37.0) g/dL RDW 17.1 H (11.5-15.5) % Sodium 136 L (137-145) mmol/L BUN 57 H (9-20) mg/dL Creatinine 2.00 H (0.66-1.25) mg/dL Glucose 185 H (74-99) mg/dL POC Glucose (mg/dL) 221 H (75-99) mg/dL 10/28/17 Range/Units 11:25 WBC (3.8-10.6) k/uL RBC (4.30-5.90) m/uL Hgb (13.0-17.5) gm/dL Hct (39.0-53.0) % MCHC (31.0-37.0) g/dL RDW (11.5-15.5) % Sodium (137-145) mmol/L BUN (9-20) mg/dL Creatinine (0.66-1.25) mg/dL Glucose (74-99) mg/dL POC Glucose (mg/dL) 253 H (75-99) mg/dL Microbiology - Last 24 Hours (Table) 10/27/17 13:30 Gram Stain - Preliminary Pleural Fluid Body Fluid Culture - Preliminary 10/26/17 04:58 Blood Culture - Preliminary Blood No Growth after 48 hours Assessment and Plan Assessment: assessment #1 acute hypoxic respiratory failure #2 acute exacerbation of congestive heart failure secondary to diastole dysfunction #3 large right pleural effusion #4 CAD and status post CABG #5 multiple comorbid conditions Plan #1 continue the current medical regimen including Lasix by mouth #2 we will follow-up with the patient on when necessary case.
[2017-10-28 13:38] LABS: Total Protein, Body Fluid 1262 mg/dL
--- NOTE | 2017-10-28 14:11 | P.PN ---
Subjective Progress Note Date: 10/28/17 Principal diagnosis: Acute hypoxic history failure secondary to an acute exacerbation of chronic obstructive pulmonary disease, acute exacerbation of diastolic congestive heart failure with bilateral pleural effusions. This is a pleasant 72-year-old gentleman follows with Dr. Smiley as his primary care physician. He has a history of coronary artery disease with previous coronary artery bypass grafting 3 in 2006, peripheral vascular disease with bilateral stent placements, GI bleed, hypertension, hyperlipidemia , osteoarthritis, migraines. He also has chronic and ongoing tobacco dependence of greater than 60 years with a diagnosis of COPD. He is maintained on Symbicort and albuterol. He has not been seen by a technical support engineer in the past. He presented here to the emergency room early this morning with complaints of shortness of breath which started approximately 2 days ago. He had been out of his Ventolin rescue inhaler for some time. He denies any cough , congestion. No fever chills or night sweats. No nausea vomiting diarrhea. No chest pain. Just progressive shortness of breath. His initial O2 saturation was 79% on room air. He was hypertensive. Subsequently requiring BiPAP support set at 10/550% FiO2. Chest x-ray shows a small right pleural effusion with mild prominence of perihilar interstitial structures suspicious for pulmonary edema/congestion. Atelectasis of the left lower lobe. CT angiogram reveals bilateral pleural effusions right greater than left with associated atelectasis. There is evidence of emphysematous changes which are quite extensive. No pulmonary embolism. Echocardiogram reveals preserved left ventricular systolic function with ejection fraction 55-60%. No significant pulmonary hypertension. The results revealed WBC 9.7. Hemoglobin 8.7. Potassium 5.2 bicarb 21 creatinine 1.47. Troponin 0.084, 0.268. ProBNP 2360. EKG reveals no significant ST or T wave abnormalities. He is seen in consultation today on the selective care unit. He is awake and alert. He is tolerating the BiPAP currently. His only complaint is that of being thirsty. No worsening shortness of breath at this time. He denies any chest discomfort. No palpitations, lightheadedness or dizziness. The patient is seen again today 10/27/2017 in follow-up on the selective care unit. He is currently awake and alert and resting fairly comfortably in bed. He remains on the BiPAP throughout the night and during the day intermittently. Last evening he was off for some time and his saturations were 8889%. Ultrasound of the chest does reveal small bilateral pleural effusions right side greater at 5 cm. He has been afebrile. White count 13.8. Hemoglobin 8.2. Creatinine 1.57. Patient is seen again today 10/28/2017 in follow-up on the selective care unit. He is awake and alert in no acute distress. He is resting comfortably in bed. He appears less dyspneic today as compared to yesterday. He did undergo a right-sided thoracentesis with approximately 650 ML's of serosanguineous fluid removed. He is maintaining good O2 saturations in the mid 90s on 4 L/m per nasal cannula. He did utilize the BiPAP last night. Blood cultures reveal no growth to date. Pleural fluid culture reveals no growth thus far. White count 20.0. Hemoglobin 8.3. Creatinine 2.00. Objective - Vital Signs Vital signs: Vital Signs Temp 97.9 F 10/28/17 08:00 Pulse 84 10/28/17 11:53 Resp 16 10/28/17 08:00 BP 159/58 10/28/17 08:00 Pulse Ox 95 10/28/17 08:21 Intake & Output 10/27/17 10/28/17 10/28/17 18:59 06:59 18:59 Intake Total 480 400 Output Total 300 1900 Balance 180 -1900 400 Intake: Oral 480 400 Output: Urine 300 1900 Other: Voiding Method Urinal # Bowel Movements 1 - Exam GENERAL EXAM: Frail, cachectic. Alert, fairly comfortable in mild respiratory distress. HEAD: Normocephalic. EYES: Normal reaction of pupils, equal size. NOSE: Clear with pink turbinates. THROAT: No erythema or exudates. NECK: No masses, no JVD. CHEST: No chest wall deformity. LUNGS: Equal air entry with crackles in the posterior bases. Diminished. CVS: S1 and S2 normal with no audible murmur, regular rhythm. ABDOMEN: No hepatosplenomegaly, normal bowel sounds, no guarding or rigidity. SPINE: No scoliosis or deformity SKIN: No rashes CENTRAL NERVOUS SYSTEM: No focal deficits, tone is normal in all 4 extremities. EXTREMITIES: There is no peripheral edema. No clubbing, no cyanosis. Peripheral pulses are intact. - Labs CBC & Chem 7: 10/28/17 05:42 10/28/17 05:42 Labs: Abnormal Lab Results - Last 24 Hours (Table) 10/27/17 10/27/17 10/28/17 Range/Units 16:56 20:43 05:36 WBC (3.8-10.6) k/uL RBC (4.30-5.90) m/uL Hgb (13.0-17.5) gm/dL Hct (39.0-53.0) % MCHC (31.0-37.0) g/dL RDW (11.5-15.5) % Sodium (137-145) mmol/L BUN (9-20) mg/dL Creatinine (0.66-1.25) mg/dL Glucose (74-99) mg/dL POC Glucose (mg/dL) 215 H 159 H 221 H (75-99) mg/dL 10/28/17 10/28/17 10/28/17 Range/Units 05:42 05:42 11:25 WBC 20.0 H (3.8-10.6) k/uL RBC 3.17 L (4.30-5.90) m/uL Hgb 8.3 L (13.0-17.5) gm/dL Hct 26.9 L (39.0-53.0) % MCHC 30.7 L (31.0-37.0) g/dL RDW 17.1 H (11.5-15.5) % Sodium 136 L (137-145) mmol/L BUN 57 H (9-20) mg/dL Creatinine 2.00 H (0.66-1.25) mg/dL Glucose 185 H (74-99) mg/dL POC Glucose (mg/dL) 253 H (75-99) mg/dL Microbiology - Last 24 Hours (Table) 10/27/17 13:30 Gram Stain - Preliminary Pleural Fluid Body Fluid Culture - Preliminary 10/26/17 04:58 Blood Culture - Preliminary Blood No Growth after 48 hours Assessment and Plan Assessment: Impression: #1 Acute hypoxic respiratory failure secondary to an acute exacerbation of chronic obstructive pulmonary disease, acute exacerbation of diastolic congestive heart failure. #2 Chronic and ongoing tobacco dependence greater than 60 years. #3 Troponin leak. #4 History of coronary artery disease with previous coronary bypass grafting. #5 Peripheral vascular disease with bilateral stents to the lower extremities. #6 Acute renal failure. #7 Anemia of unclear etiology. History of GI bleed. #8 Hypertension. #9 Hyperlipidemia. #10 Leukocytosis, possibly steroid effect. Plan: The patient was seen and evaluated by Dr. Leavitt. We'll go ahead and add azithromycin empirically. We'll continue with his current treatment plan. His Lasix has been converted to oral. We'll continue to wean down the FiO2 as tolerated. We will continue to follow. I, the cosigning physician, performed a history & physical examination of the patient. Lungs sounds with crackles in the bilateral posterior bases. Diminished. Maintaining good O2 saturations in the 90s on 4 L/m per nasal cannula.. I discussed the assessment and plan of care with my nurse practitioner, Cintia Thomas. I attest to the above progress note as dictated by her.
[2017-10-28] MEDS: FERROUS SULFATE 325 MG TAB PO SCH (16:08)
[2017-10-28] MEDS: AZITHROMYCIN 500 MG TAB PO SCH (16:13)
[2017-10-28 16:27] LABS: Glucose,Whole Blood 198 mg/dL (75-99)
[2017-10-28 21:19] LABS: Glucose,Whole Blood 221 mg/dL (75-99)
[2017-10-29] MEDS: IPRATROPIUM-ALBUTEROL 3 ML NEB INHALATION SCH ×5 (03:06→19:26)
[2017-10-29] MEDS: methylPREDNISolone SOD SUCCI 125 MG/2 ML VIAL IV SCH ×4 (05:52→23:54)
[2017-10-29 06:15] LABS: Glucose,Whole Blood 295 mg/dL (75-99)
[2017-10-29] MEDS: INSULIN ASPART 100 UNIT/ML 1 ML 10 ML VIAL SQ SCH ×4 (06:33→22:01)
[2017-10-29] MEDS: FERROUS SULFATE 325 MG TAB PO SCH ×2 (06:33→17:14)
[2017-10-29 07:10] LABS: Calcium 8.7 mg/dL (8.4-10.2); Magnesium 2.1 mg/dL (1.6-2.3)
[2017-10-29 07:11] LABS: Anisocytosis Slight; HCT 26.8 % (39.0-53.0); HGB 8.4 gm/dL (13.0-17.5); Hypochromasia Marked; MCH 27.5 pg (25.0-35.0); MCHC 31.4 g/dL (31.0-37.0); MCV 87.6 fL (80.0-100.0); Mean Platelet Volume 7.7; Platelet Count 258 k/uL (150-450); RBC 3.06 m/uL (4.30-5.90); RDW 16.8 % (11.5-15.5); WBC 16.8 k/uL (3.8-10.6)
[2017-10-29] MEDS: BUDESONIDE 1 MG/2 ML NEBU INHALATION SCH ×2 (07:30→19:26)
[2017-10-29] MEDS: FORMOTEROL FUMARATE 20 MCG/2 ML NEBU INHALATION SCH ×3 (07:30→19:26)
[2017-10-29] MEDS: PANTOPRAZOLE 40 MG/10 ML VIAL IVP SCH (08:09)
[2017-10-29] MEDS: HEPARIN SODIUM,PORCINE 5,000 UNIT/ML 1 ML VIAL SQ SCH ×3 (08:10→23:54)
[2017-10-29] MEDS: hydrALAZINE HCL 50 MG TAB PO SCH ×3 (08:11→22:01)
[2017-10-29] MEDS: AZITHROMYCIN 500 MG TAB PO SCH (08:11)
[2017-10-29] MEDS: METOPROLOL TARTRATE 50 MG TAB PO SCH ×2 (08:11→22:01)
[2017-10-29] MEDS: FUROSEMIDE 40 MG TAB PO SCH (08:11)
[2017-10-29] MEDS: amLODIPine 5 MG TAB PO SCH (08:11)
[2017-10-29] MEDS: ASPIRIN 81 MG PO SCH (08:12)
[2017-10-29] MEDS: ATORVASTATIN 80 MG TAB PO SCH (08:12)
[2017-10-29] MEDS: HYDROcodone/APAP 10-325MG 1 EACH TAB PO PRN ×2 (08:24→14:35)
[2017-10-29] MEDS: INSULIN DETEMIR 100 UNIT/ML 10 ML VIAL SQ SCH (08:40)
[2017-10-29] MEDS ORDERED: amLODIPine 5 MG TAB PO STA (09:08)
--- NOTE | 2017-10-29 09:10 | P.PN ---
Subjective Progress Note Date: 10/29/17 Principal diagnosis: Shortness of breath Patient is a 72-year-old male with a past medical history of just of heart failure, COPD, coronary artery disease, hypertension, and dyslipidemia who presented to the emergency department with complaints of shortness of breath. In the ER he underwent an extensive evaluation. On arrival he was hypoxic at 79% on room air and hypertensive with a blood pressure of 211/51. His laboratory analysis showed anemia, hyperkalemia, acute kidney injury, and an anion gap metabolic acidosis. He was found have an acute exacerbation of COPD and acute exacerbation of CHF. He was started on breathing treatments, Lasix, and hydralazine. Chest x-ray showed bilateral pleural effusion. He is admitted to the [facility] for further monitoring. He was seen by pulmonary who recommended diuresis, Pulmicort, Solu-Medrol, and Lasix. He also required being placed on the BiPAP. He was seen by cardiology who recommended continuing with IV Lasix. He also was found have an elevated troponin which was felt to be secondary to a type II event or hypoxia. Echocardiogram was completed which showed a 55-60% and LVH. Kidney function started to decline and his fluid status had improved. His lasix was transitioned to PO. He continues to complain of shortness of breath and chest pain. Patient seen and examined at bedside. Still with SOB and intermitted chest pain , wants to go back on BiPap but wanting to leave. No lightheadedness, no dizziness, BM yesterday. D/W patient and regarding current results. Encouraged stopping smoking and continuing to treat COPD. He will need nebulizer for home and optimized inhaler regiment. Objective - Vital Signs Vital signs: Vital Signs Temp 98.0 F 10/29/17 04:00 Pulse 87 10/29/17 08:00 Resp 16 10/29/17 08:00 BP 169/74 10/29/17 08:00 Pulse Ox 93 L 10/29/17 08:00 Intake & Output 10/28/17 10/29/17 10/29/17 18:59 06:59 18:59 Intake Total 800 10 360 Output Total 300 350 Balance 500 -340 360 Weight 60.5 kg Intake: IV 10 0.9 10 Oral 800 360 Output: Urine 300 350 Other: Voiding Method Urinal Urinal - Exam General: non toxic, mild distress, appears at stated age Derm: warm, dry Head: atraumatic, normocephalic, symmetric Eyes: EOMI, no lid lag, anicteric sclera Mouth: no lip lesion, mucus membranes moist Cardiovascular: S1S2 reg, no murmur, positive posterior tibial pulse bilateral, Lungs: Rhonchi b/l bases , + accessory muscle use Abdominal: soft, nontender to palpation, no guarding, no appreciable organomegaly Ext: no gross muscle atrophy, no edema, no contractures Neuro: CN II-XI grossly intact, no focal neuro deficits Psych: Alert, oriented, appropriate affect - Labs CBC & Chem 7: 10/29/17 05:44 10/29/17 05:44 Labs: Abnormal Lab Results - Last 24 Hours (Table) 10/28/17 10/28/17 10/28/17 Range/Units 11:25 16:24 21:18 WBC (3.8-10.6) k/uL RBC (4.30-5.90) m/uL Hgb (13.0-17.5) gm/dL Hct (39.0-53.0) % RDW (11.5-15.5) % Sodium (137-145) mmol/L BUN (9-20) mg/dL Creatinine (0.66-1.25) mg/dL Glucose (74-99) mg/dL POC Glucose (mg/dL) 253 H 198 H 221 H (75-99) mg/dL 10/29/17 10/29/17 10/29/17 Range/Units 05:44 05:44 06:14 WBC 16.8 H (3.8-10.6) k/uL RBC 3.06 L (4.30-5.90) m/uL Hgb 8.4 L (13.0-17.5) gm/dL Hct 26.8 L (39.0-53.0) % RDW 16.8 H (11.5-15.5) % Sodium 136 L (137-145) mmol/L BUN 56 H (9-20) mg/dL Creatinine 1.73 H (0.66-1.25) mg/dL Glucose 245 H (74-99) mg/dL POC Glucose (mg/dL) 295 H (75-99) mg/dL Microbiology - Last 24 Hours (Table) 10/26/17 04:58 Blood Culture - Preliminary Blood No Growth after 72 hours 10/27/17 13:30 Gram Stain - Preliminary Pleural Fluid Body Fluid Culture - Preliminary Assessment and Plan Assessment: Acute kidney injury, improving - likely due to forced diuresis - avoid additional nephrotoxic agents - no IVF with CHF and hypoxic respiratory failure - Continue PO lasix Hyperglycemia, steroid induced - continue SSI, add levemir - check A1C to see baseline right greater than left pleural effusion -s/p thoracentesis on 10/27 -Pulmonary recommendations - await cytology and cultures - repeat CXR with lasix decreased Acute exacerbation of COPD - Pulm recs appreciated - duoneb, perforomist, solumedrol - zithromax Acute hypoxic respiratory failure - treatment with BiPap as needed and as above - ? need for at home Acute exacerbation of diastolic CHF with 55-60%, now compensated -Cardiology recommendations -PO lasix, strict I's and O's, daily weight - not on ACEI at home and will not start at this time due to AIDEN - metoprolol HTN urgency on arrival - norvasc, lasix, hydralazine, lopressor - still elevated will increase norvasc Normocytic anemia, iron deficiency anemia -will need further outpatient workup with PCP had an EGD and Colon with signs of bleeding seeing Dr. Denis. - follow CBC - Fe supplementation Leukocytosis, likely reactive and due to steroids - follow CBC - improving elevated troponins likly due to hypoxia - cardio recs - ASA, statin Hyperkalemia, resolved Non-anion gap metabolic acidosis, resolved DVT prophylaxis: heparin Discussed with: Patient, nursing Anticipated discharge: 2-[address]: home A total of 35 minutes was spent on the care of this complex patient more than 50 % of the time was spent in counseling and care coordination.
--- NOTE | 2017-10-29 09:30 | XR ---
EXAMINATION TYPE: XR chest 1V portable DATE OF EXAM: 10/29/2017 HISTORY: shortness of breath. REFERENCE: Previous study dated 10/27/2017. FINDINGS: There has been a midline sternotomy. There continues to be a left-sided pleural reaction, l ikely representing pleural fluid. The heart is normal in size. I suspect underlying COPD. IMPRESSION: 1. CONTINUING SMALL, LEFT EFFUSION. 2. I SUSPECT UNDERLYING COPD.
[2017-10-29 11:33] LABS: Glucose,Whole Blood 181 mg/dL (75-99)
--- NOTE | 2017-10-29 13:27 | P.PN ---
Subjective Progress Note Date: 10/29/17 Principal diagnosis: Acute hypoxic respiratory failure secondary to COPD exacerbation and bilateral pleural effusions. This is a pleasant 72-year-old gentleman follows with Dr. Smiley as his primary care physician. He has a history of coronary artery disease with previous coronary artery bypass grafting 3 in 2006, peripheral vascular disease with bilateral stent placements, GI bleed, hypertension, hyperlipidemia , osteoarthritis, migraines. He also has chronic and ongoing tobacco dependence of greater than 60 years with a diagnosis of COPD. He is maintained on Symbicort and albuterol. He has not been seen by a j2ee software engineer in the past. He presented here to the emergency room early this morning with complaints of shortness of breath which started approximately 2 days ago. He had been out of his Ventolin rescue inhaler for some time. He denies any cough , congestion. No fever chills or night sweats. No nausea vomiting diarrhea. No chest pain. Just progressive shortness of breath. His initial O2 saturation was 79% on room air. He was hypertensive. Subsequently requiring BiPAP support set at 10/550% FiO2. Chest x-ray shows a small right pleural effusion with mild prominence of perihilar interstitial structures suspicious for pulmonary edema/congestion. Atelectasis of the left lower lobe. CT angiogram reveals bilateral pleural effusions right greater than left with associated atelectasis. There is evidence of emphysematous changes which are quite extensive. No pulmonary embolism. Echocardiogram reveals preserved left ventricular systolic function with ejection fraction 55-60%. No significant pulmonary hypertension. The results revealed WBC 9.7. Hemoglobin 8.7. Potassium 5.2 bicarb 21 creatinine 1.47. Troponin 0.084, 0.268. ProBNP 2360. EKG reveals no significant ST or T wave abnormalities. He is seen in consultation today on the selective care unit. He is awake and alert. He is tolerating the BiPAP currently. His only complaint is that of being thirsty. No worsening shortness of breath at this time. He denies any chest discomfort. No palpitations, lightheadedness or dizziness. The patient is seen again today 10/27/2017 in follow-up on the selective care unit. He is currently awake and alert and resting fairly comfortably in bed. He remains on the BiPAP throughout the night and during the day intermittently. Last evening he was off for some time and his saturations were 8889%. Ultrasound of the chest does reveal small bilateral pleural effusions right side greater at 5 cm. He has been afebrile. White count 13.8. Hemoglobin 8.2. Creatinine 1.57. Patient is seen again today 10/28/2017 in follow-up on the selective care unit. He is awake and alert in no acute distress. He is resting comfortably in bed. He appears less dyspneic today as compared to yesterday. He did undergo a right-sided thoracentesis with approximately 650 ML's of serosanguineous fluid removed. He is maintaining good O2 saturations in the mid 90s on 4 L/m per nasal cannula. He did utilize the BiPAP last night. Blood cultures reveal no growth to date. Pleural fluid culture reveals no growth thus far. White count 20.0. Hemoglobin 8.3. Creatinine 2.00. Reevaluated today on 10/29/2017, patient is doing better, however for some reason the patient loves to keep using his BiPAP. I recommended switching him today to a nasal cannula, and could be evaluated on outpatient basis whether he qualifies for BiPAP. The preliminary report on his pleural effusion which I drained a few days ago showed that the effusion is transudative in nature/ cardiac related. Patient remains on diuretics, and overall the patient is doing much better compared to how he felt when he came in. Today I have recommended at least resting the patient to see if he qualifies for home O2 and I will recommended albuterol with Atrovent updrafts 4 times a day when necessary , and he will benefit from another nebulizer machine at home. Objective - Vital Signs Vital signs: Vital Signs Temp 98.0 F 10/29/17 04:00 Pulse 84 10/29/17 11:15 Resp 16 10/29/17 11:28 BP 169/74 10/29/17 08:00 Pulse Ox 93 L 10/29/17 08:00 Intake & Output 10/28/17 10/29/17 10/29/17 18:59 06:59 18:59 Intake Total 800 10 360 Output Total 300 350 400 Balance 500 -340 -40 Weight 60.5 kg Intake: IV 10 0.9 10 Oral 800 360 Output: Urine 300 350 400 Other: Voiding Method Urinal Urinal Urinal - Exam GENERAL EXAM: Frail, cachectic. Alert, fairly comfortable in mild respiratory distress. Still using BiPAP early this morning, HEAD: Normocephalic. EYES: Normal reaction of pupils, equal size. NOSE: Clear with pink turbinates. THROAT: No erythema or exudates. NECK: No masses, no JVD. CHEST: No chest wall deformity. LUNGS: Equal air entry with crackles in the posterior bases. Diminished. CVS: S1 and S2 normal with no audible murmur, regular rhythm. ABDOMEN: No hepatosplenomegaly, normal bowel sounds, no guarding or rigidity. SPINE: No scoliosis or deformity SKIN: No rashes CENTRAL NERVOUS SYSTEM: No focal deficits, tone is normal in all 4 extremities. EXTREMITIES: There is no peripheral edema. No clubbing, no cyanosis. Peripheral pulses are intact. - Labs CBC & Chem 7: 10/29/17 05:44 10/29/17 05:44 Labs: Abnormal Lab Results - Last 24 Hours (Table) 10/28/17 10/28/17 10/29/17 Range/Units 16:24 21:18 05:44 WBC 16.8 H (3.8-10.6) k/uL RBC 3.06 L (4.30-5.90) m/uL Hgb 8.4 L (13.0-17.5) gm/dL Hct 26.8 L (39.0-53.0) % RDW 16.8 H (11.5-15.5) % Sodium (137-145) mmol/L BUN (9-20) mg/dL Creatinine (0.66-1.25) mg/dL Glucose (74-99) mg/dL POC Glucose (mg/dL) 198 H 221 H (75-99) mg/dL 10/29/17 10/29/17 10/29/17 Range/Units 05:44 06:14 11:29 WBC (3.8-10.6) k/uL RBC (4.30-5.90) m/uL Hgb (13.0-17.5) gm/dL Hct (39.0-53.0) % RDW (11.5-15.5) % Sodium 136 L (137-145) mmol/L BUN 56 H (9-20) mg/dL Creatinine 1.73 H (0.66-1.25) mg/dL Glucose 245 H (74-99) mg/dL POC Glucose (mg/dL) 295 H 181 H (75-99) mg/dL Microbiology - Last 24 Hours (Table) 10/26/17 04:58 Blood Culture - Preliminary Blood No Growth after 72 hours Assessment and Plan Assessment: #1 Acute hypoxic respiratory failure secondary to an acute exacerbation of chronic obstructive pulmonary disease, acute exacerbation of diastolic congestive heart failure. #2 Chronic and ongoing tobacco dependence greater than 60 years. #3 Troponin leak. #4 History of coronary artery disease with previous coronary bypass grafting. #5 Peripheral vascular disease with bilateral stents to the lower extremities. #6 Acute renal failure. #7 Anemia of unclear etiology. History of GI bleed. #8 Hypertension. #9 Hyperlipidemia. #10 Leukocytosis, possibly steroid effect. #11 status post right-sided thoracentesis, fluid was transudative in nature, cardiac related unless proven otherwise. Recommendation: Consider patient for home O2, patient will be tested to see if he qualifies. Recommended updraft machine at home utilizing DuoNeb updrafts 4 times a day and when necessary, consider discharge planning today or in the next 24 hours. Advised the patient to come and see me on follow-up on outpatient basis. Continue present meds as listed. Time with Patient: Less than 30
[2017-10-29 16:16] LABS: Glucose,Whole Blood 223 mg/dL (75-99)
[2017-10-29 20:37] LABS: Glucose,Whole Blood 288 mg/dL (75-99)
[2017-10-30] MEDS: IPRATROPIUM-ALBUTEROL 3 ML NEB INHALATION SCH ×7 (01:24→23:28)
[2017-10-30 05:51] LABS: Glucose,Whole Blood 263 mg/dL (75-99)
[2017-10-30 06:36] LABS: Anisocytosis Slight; HCT 25.4 % (39.0-53.0); HGB 7.9 gm/dL (13.0-17.5); Hypochromasia Moderate; MCH 26.3 pg (25.0-35.0); MCHC 31.1 g/dL (31.0-37.0); MCV 84.6 fL (80.0-100.0); Mean Platelet Volume 7.9; Platelet Count 282 k/uL (150-450); RDW 17.1 % (11.5-15.5); WBC 16.8 k/uL (3.8-10.6)
[2017-10-30 06:57] LABS: Calcium 8.5 mg/dL (8.4-10.2); Magnesium 2.1 mg/dL (1.6-2.3)
[2017-10-30] MEDS: methylPREDNISolone SOD SUCCI 125 MG/2 ML VIAL IV SCH ×2 (07:06→12:29)
[2017-10-30] MEDS: FERROUS SULFATE 325 MG TAB PO SCH ×2 (07:06→16:39)
[2017-10-30] MEDS: INSULIN ASPART 100 UNIT/ML 1 ML 10 ML VIAL SQ SCH ×4 (07:13→20:58)
[2017-10-30] MEDS: BUDESONIDE 1 MG/2 ML NEBU INHALATION SCH ×2 (08:20→19:45)
--- NOTE | 2017-10-30 10:08 | P.PN ---
Subjective Progress Note Date: 10/30/17 Principal diagnosis: Shortness of breath Patient is a 72-year-old male with a past medical history of just of heart failure, COPD, coronary artery disease, hypertension, and dyslipidemia who presented to the emergency department with complaints of shortness of breath. In the ER he underwent an extensive evaluation. On arrival he was hypoxic at 79% on room air and hypertensive with a blood pressure of 211/51. His laboratory analysis showed anemia, hyperkalemia, acute kidney injury, and an anion gap metabolic acidosis. He was found have an acute exacerbation of COPD and acute exacerbation of CHF. He was started on breathing treatments, Lasix, and hydralazine. Chest x-ray showed bilateral pleural effusion. He is admitted to the [facility] for further monitoring. He was seen by pulmonary who recommended diuresis, Pulmicort, Solu-Medrol, and Lasix. He also required being placed on the BiPAP. He was seen by cardiology who recommended continuing with IV Lasix. He also was found have an elevated troponin which was felt to be secondary to a type II event or hypoxia. Echocardiogram was completed which showed a 55-60% and LVH. Kidney function started to decline and his fluid status had improved. His lasix was transitioned to PO. He continues to complain of shortness of breath and chest pain. He continues to use the bipap as it helps with his shortness of breath and chest pain. He gets short of breath first and then develops chest pain. Patient seen and examined at bedside Was hoping to send atient home today however he continues to complain of shortness of breath requiring BiPAP uses it makes him feel better. I again stressed with the patient that he should try to maintain off of BiPAP slightly can discharge him. He been seen by pulmonary does not qualify for home BiPAP at this time. He does not feel short of breath or have chest pain currently but he is on BiPAP. No nausea or vomiting. Tolerating his diet. Again discussed with him that these changes are due to smoking he needs to stop. Objective - Vital Signs Vital signs: Vital Signs Temp 98.9 F 10/30/17 04:10 Pulse 76 10/30/17 08:46 Resp 16 10/30/17 08:00 BP 194/74 10/30/17 08:00 Pulse Ox 98 10/30/17 08:21 Intake & Output 10/29/17 10/30/17 10/30/17 18:59 06:59 18:59 Intake Total 1080 180 Output Total 1000 400 350 Balance 80 -400 -170 Weight 62.1 kg Intake: Oral 1080 180 Output: Urine 1000 400 350 Other: Voiding Method Urinal Urinal - Exam General: non toxic, No distress, appears at stated age Derm: warm, dry Head: atraumatic, normocephalic, symmetric Eyes: EOMI, no lid lag, anicteric sclera Mouth: no lip lesion, mucus membranes moist Cardiovascular: S1S2 reg, no murmur, positive posterior tibial pulse bilateral, Lungs:CTA b/l , No accessory muscle use Abdominal: soft, nontender to palpation, no guarding, no appreciable organomegaly Ext: no gross muscle atrophy, no edema, no contractures Neuro: CN II-XI grossly intact, no focal neuro deficits Psych: Alert, oriented, appropriate affect - Labs CBC & Chem 7: 10/30/17 06:08 10/30/17 06:08 Labs: Abnormal Lab Results - Last 24 Hours (Table) 10/29/17 10/29/17 10/29/17 Range/Units 11:29 16:12 20:35 WBC (3.8-10.6) k/uL RBC (4.30-5.90) m/uL Hgb (13.0-17.5) gm/dL Hct (39.0-53.0) % RDW (11.5-15.5) % Sodium (137-145) mmol/L BUN (9-20) mg/dL Creatinine (0.66-1.25) mg/dL Glucose (74-99) mg/dL POC Glucose (mg/dL) 181 H 223 H 288 H (75-99) mg/dL 10/30/17 10/30/17 10/30/17 Range/Units 05:50 06:08 06:08 WBC 16.8 H (3.8-10.6) k/uL RBC 3.00 L (4.30-5.90) m/uL Hgb 7.9 L (13.0-17.5) gm/dL Hct 25.4 L (39.0-53.0) % RDW 17.1 H (11.5-15.5) % Sodium 135 L (137-145) mmol/L BUN 55 H (9-20) mg/dL Creatinine 1.63 H (0.66-1.25) mg/dL Glucose 216 H (74-99) mg/dL POC Glucose (mg/dL) 263 H (75-99) mg/dL Microbiology - Last 24 Hours (Table) 10/26/17 04:58 Blood Culture - Preliminary Blood No Growth after 96 hours 10/27/17 13:30 Gram Stain - Preliminary Pleural Fluid Body Fluid Culture - Preliminary Assessment and Plan Assessment: Acute kidney injury, improving - likely due to forced diuresis - avoid additional nephrotoxic agents - no IVF with CHF and hypoxic respiratory failure - Continue PO lasix Hyperglycemia, steroid induced - continue SSI, add levemir - A1C is pending right greater than left pleural effusion -s/p thoracentesis on 10/27 -Pulmonary recommendations - await cytology, culture negative for 48 hours Acute exacerbation of COPD - Pulm recs appreciated - duoneb, perforomist, solumedrol - zithromax Acute hypoxic respiratory failure - treatment with BiPap as needed and as above - arrangements for home O2 and nebulizer Acute exacerbation of diastolic CHF with 55-60%, now compensated -Cardiology recommendations -PO lasix, strict I's and O's, daily weight - not on ACEI at home and will not start at this time due to AIDEN - metoprolol HTN, suboptimal control - norvasc, lasix, hydralazine, lopressor - still elevated hydralazine increased Normocytic anemia, iron deficiency anemia -will need further outpatient workup with PCP had an EGD and Colon with signs of bleeding seeing Dr. Denis. - follow CBC - Fe supplementation Leukocytosis, likely reactive and due to steroids - follow CBC - improving elevated troponins likly due to hypoxia - cardio recs - ASA, statin Hyperkalemia, resolved Non-anion gap metabolic acidosis, resolved Hope to D/C home today if able to stay off BiPap. DVT prophylaxis: heparin Discussed with: Patient, nursing Anticipated discharge:[address]: home A total of 35 minutes was spent on the care of this complex patient more than 50 % of the time was spent in counseling and care coordination.
[2017-10-30 11:52] LABS: Glucose,Whole Blood 146 mg/dL (75-99)
--- NOTE | 2017-10-30 12:07 | P.PN ---
Subjective Progress Note Date: 10/30/17 Principal diagnosis: Acute hypoxic respiratory failure secondary to COPD exacerbation and bilateral pleural effusions. This is a pleasant 72-year-old gentleman follows with Dr. Smiley as his primary care physician. He has a history of coronary artery disease with previous coronary artery bypass grafting 3 in 2006, peripheral vascular disease with bilateral stent placements, GI bleed, hypertension, hyperlipidemia , osteoarthritis, migraines. He also has chronic and ongoing tobacco dependence of greater than 60 years with a diagnosis of COPD. He is maintained on Symbicort and albuterol. He has not been seen by a upscale security officer in the past. He presented here to the emergency room early this morning with complaints of shortness of breath which started approximately 2 days ago. He had been out of his Ventolin rescue inhaler for some time. He denies any cough , congestion. No fever chills or night sweats. No nausea vomiting diarrhea. No chest pain. Just progressive shortness of breath. His initial O2 saturation was 79% on room air. He was hypertensive. Subsequently requiring BiPAP support set at 10/550% FiO2. Chest x-ray shows a small right pleural effusion with mild prominence of perihilar interstitial structures suspicious for pulmonary edema/congestion. Atelectasis of the left lower lobe. CT angiogram reveals bilateral pleural effusions right greater than left with associated atelectasis. There is evidence of emphysematous changes which are quite extensive. No pulmonary embolism. Echocardiogram reveals preserved left ventricular systolic function with ejection fraction 55-60%. No significant pulmonary hypertension. The results revealed WBC 9.7. Hemoglobin 8.7. Potassium 5.2 bicarb 21 creatinine 1.47. Troponin 0.084, 0.268. ProBNP 2360. EKG reveals no significant ST or T wave abnormalities. He is seen in consultation today on the selective care unit. He is awake and alert. He is tolerating the BiPAP currently. His only complaint is that of being thirsty. No worsening shortness of breath at this time. He denies any chest discomfort. No palpitations, lightheadedness or dizziness. The patient is seen again today 10/27/2017 in follow-up on the selective care unit. He is currently awake and alert and resting fairly comfortably in bed. He remains on the BiPAP throughout the night and during the day intermittently. Last evening he was off for some time and his saturations were 8889%. Ultrasound of the chest does reveal small bilateral pleural effusions right side greater at 5 cm. He has been afebrile. White count 13.8. Hemoglobin 8.2. Creatinine 1.57. Patient is seen again today 10/28/2017 in follow-up on the selective care unit. He is awake and alert in no acute distress. He is resting comfortably in bed. He appears less dyspneic today as compared to yesterday. He did undergo a right-sided thoracentesis with approximately 650 ML's of serosanguineous fluid removed. He is maintaining good O2 saturations in the mid 90s on 4 L/m per nasal cannula. He did utilize the BiPAP last night. Blood cultures reveal no growth to date. Pleural fluid culture reveals no growth thus far. White count 20.0. Hemoglobin 8.3. Creatinine 2.00. Reevaluated today on 10/29/2017, patient is doing better, however for some reason the patient loves to keep using his BiPAP. I recommended switching him today to a nasal cannula, and could be evaluated on outpatient basis whether he qualifies for BiPAP. The preliminary report on his pleural effusion which I drained a few days ago showed that the effusion is transudative in nature/ cardiac related. Patient remains on diuretics, and overall the patient is doing much better compared to how he felt when he came in. Today I have recommended at least resting the patient to see if he qualifies for home O2 and I will recommended albuterol with Atrovent updrafts 4 times a day when necessary , and he will benefit from another nebulizer machine at home. Patient was reevaluated today on 10/30/2017, feeling better, has been using BiPAP at night, presently on nasal cannula. I will recommended an ABG on this patient while on nasal cannula if we could document hypercapnia may even consider qualifying the patient for BiPAP at home. Patient did have thoracentesis, and the fluid was transudative in nature, hence it is more or less related to most likely diastolic congestive heart failure. Not parapneumonic and not related to malignancy. Cytology is still pending. Remains on bronchodilators, remains on steroids. Objective - Vital Signs Vital signs: Vital Signs Temp 98.9 F 10/30/17 04:10 Pulse 72 10/30/17 11:55 Resp 16 07/22/18 11:33 BP 194/74 10/30/17 08:00 Pulse Ox 98 10/30/17 08:21 Intake & Output 10/29/17 10/30/17 10/30/17 18:59 06:59 18:59 Intake Total 1080 180 Output Total 1000 400 350 Balance 80 -400 -170 Weight 62.1 kg Intake: Oral 1080 180 Output: Urine 1000 400 350 Other: Voiding Method Urinal Urinal Urinal - Exam GENERAL EXAM: Frail, cachectic. Alert, fairly comfortable in mild respiratory distress. Was on BiPAP last night, presently on nasal cannula at 3 L. HEAD: Normocephalic. EYES: Normal reaction of pupils, equal size. NOSE: Clear with pink turbinates. THROAT: No erythema or exudates. NECK: No masses, no JVD. CHEST: No chest wall deformity. LUNGS: Equal air entry with crackles in the posterior bases. Diminished. CVS: S1 and S2 normal with no audible murmur, regular rhythm. ABDOMEN: No hepatosplenomegaly, normal bowel sounds, no guarding or rigidity. SPINE: No scoliosis or deformity SKIN: No rashes CENTRAL NERVOUS SYSTEM: No focal deficits, tone is normal in all 4 extremities. EXTREMITIES: There is no peripheral edema. No clubbing, no cyanosis. Peripheral pulses are intact. - Labs CBC & Chem 7: 10/30/17 06:08 10/30/17 06:08 Labs: Abnormal Lab Results - Last 24 Hours (Table) 10/29/17 10/29/17 10/30/17 Range/Units 16:12 20:35 05:50 WBC (3.8-10.6) k/uL RBC (4.30-5.90) m/uL Hgb (13.0-17.5) gm/dL Hct (39.0-53.0) % RDW (11.5-15.5) % Sodium (137-145) mmol/L BUN (9-20) mg/dL Creatinine (0.66-1.25) mg/dL Glucose (74-99) mg/dL POC Glucose (mg/dL) 223 H 288 H 263 H (75-99) mg/dL 10/30/17 10/30/17 10/30/17 Range/Units 06:08 06:08 11:40 WBC 16.8 H (3.8-10.6) k/uL RBC 3.00 L (4.30-5.90) m/uL Hgb 7.9 L (13.0-17.5) gm/dL Hct 25.4 L (39.0-53.0) % RDW 17.1 H (11.5-15.5) % Sodium 135 L (137-145) mmol/L BUN 55 H (9-20) mg/dL Creatinine 1.63 H (0.66-1.25) mg/dL Glucose 216 H (74-99) mg/dL POC Glucose (mg/dL) 146 H (75-99) mg/dL Microbiology - Last 24 Hours (Table) 10/27/17 13:30 Gram Stain - Preliminary Pleural Fluid Body Fluid Culture - Preliminary 10/26/17 04:58 Blood Culture - Preliminary Blood No Growth after 96 hours Assessment and Plan Assessment: #1 Acute hypoxic respiratory failure secondary to an acute exacerbation of chronic obstructive pulmonary disease, acute exacerbation of diastolic congestive heart failure. #2 Chronic and ongoing tobacco dependence greater than 60 years. #3 Troponin leak. #4 History of coronary artery disease with previous coronary bypass grafting. #5 Peripheral vascular disease with bilateral stents to the lower extremities. #6 Acute renal failure. #7 Anemia of unclear etiology. History of GI bleed. #8 Hypertension. #9 Hyperlipidemia. #10 Leukocytosis, possibly steroid effect. #11 status post right-sided thoracentesis, fluid was transudative in nature, cardiac related unless proven otherwise. Recommendation: Will order ABG on this patient, this would be done on room air, and we'll document whether the patient qualifies for home O2, also at the same time with a qualifies for BiPAP. In the meantime continue present bronchodilators, consider discharge planning later today or in a.m. Time with Patient: Less than 30
[2017-10-30] MEDS: AZITHROMYCIN 500 MG TAB PO SCH (12:24)
[2017-10-30] MEDS: amLODIPine 10 MG TAB PO SCH (12:24)
[2017-10-30] MEDS: ASPIRIN 81 MG PO SCH (12:24)
[2017-10-30] MEDS: HEPARIN SODIUM,PORCINE 5,000 UNIT/ML 1 ML VIAL SQ SCH ×3 (12:24→23:24)
[2017-10-30] MEDS: ATORVASTATIN 80 MG TAB PO SCH (12:24)
[2017-10-30] MEDS: PANTOPRAZOLE 40 MG/10 ML VIAL IVP SCH (12:25)
[2017-10-30] MEDS: FUROSEMIDE 40 MG TAB PO SCH (12:25)
[2017-10-30] MEDS: METOPROLOL TARTRATE 50 MG TAB PO SCH ×2 (12:25→20:58)
[2017-10-30] MEDS: INSULIN DETEMIR 100 UNIT/ML 10 ML VIAL SQ SCH (12:28)
[2017-10-30] MEDS: HYDROcodone/APAP 10-325MG 1 EACH TAB PO PRN (12:42)
[2017-10-30 12:57] LABS: ABG Base Excess 4.1 mmol/L; ABG HCO3 27 mmol/L (21-25); ABG Oxygen Saturation 90.6 % (94-97); ABG PCO2 36 mmHg (35-45); ABG PH 7.49 (7.35-7.45); ABG PO2 56 mmHg (83-108); ABG TCO2 29 mmol/L (19-24)
[2017-10-30 16:10] LABS: Glucose,Whole Blood 297 mg/dL (75-99)
[2017-10-30] MEDS: hydrALAZINE HCL 50 MG TAB PO SCH ×3 (16:39→20:58)
[2017-10-30] MEDS: FORMOTEROL FUMARATE 20 MCG/2 ML NEBU INHALATION SCH (19:45)
[2017-10-30 20:56] LABS: Glucose,Whole Blood 156 mg/dL (75-99)
[2017-10-31] MEDS: IPRATROPIUM-ALBUTEROL 3 ML NEB INHALATION SCH ×4 (04:14→16:31)
[2017-10-31 06:12] LABS: Glucose,Whole Blood 159 mg/dL (75-99)
[2017-10-31 06:33] LABS: Anisocytosis Slight; HGB 7.7 gm/dL (13.0-17.5); Hypochromasia Moderate; MCH 25.7 pg (25.0-35.0); MCHC 30.9 g/dL (31.0-37.0); MCV 83.2 fL (80.0-100.0); Mean Platelet Volume 7.6; Platelet Count 266 k/uL (150-450); RDW 17.1 % (11.5-15.5); WBC 15.7 k/uL (3.8-10.6)
[2017-10-31] MEDS: INSULIN ASPART 100 UNIT/ML 1 ML 10 ML VIAL SQ SCH ×3 (06:35→17:21)
[2017-10-31] MEDS: FERROUS SULFATE 325 MG TAB PO SCH ×2 (06:35→17:18)
[2017-10-31 06:47] LABS: Calcium 8.5 mg/dL (8.4-10.2); Potassium 4.6 mmol/L (3.5-5.1)
[2017-10-31] MEDS: FORMOTEROL FUMARATE 20 MCG/2 ML NEBU INHALATION SCH (07:13)
[2017-10-31] MEDS: BUDESONIDE 1 MG/2 ML NEBU INHALATION SCH (07:13)
[2017-10-31 08:48] VITALS: TEMP 97
[2017-10-31] MEDS: HYDROcodone/APAP 10-325MG 1 EACH TAB PO PRN (08:51)
[2017-10-31] MEDS: HEPARIN SODIUM,PORCINE 5,000 UNIT/ML 1 ML VIAL SQ SCH ×2 (08:53→17:17)
[2017-10-31] MEDS: amLODIPine 10 MG TAB PO SCH (08:53)
[2017-10-31] MEDS: AZITHROMYCIN 500 MG TAB PO SCH (08:54)
[2017-10-31] MEDS: METOPROLOL TARTRATE 50 MG TAB PO SCH (08:54)
[2017-10-31] MEDS: FUROSEMIDE 40 MG TAB PO SCH (08:54)
[2017-10-31] MEDS: INSULIN DETEMIR 100 UNIT/ML 10 ML VIAL SQ SCH (08:54)
[2017-10-31] MEDS: ASPIRIN 81 MG PO SCH (08:54)
[2017-10-31] MEDS: ATORVASTATIN 80 MG TAB PO SCH (08:54)
[2017-10-31] MEDS: hydrALAZINE HCL 50 MG TAB PO SCH ×2 (08:54→17:17)
[2017-10-31] MEDS: PANTOPRAZOLE 40 MG/10 ML VIAL IVP SCH (08:54)
[2017-10-31] MEDS ORDERED: predniSONE 20 MG TAB PO SCH (09:00)
[2017-10-31 11:21] VITALS: BP 152/64; PULSE 70; RESP 16
[2017-10-31 11:30] LABS: Glucose,Whole Blood 208 mg/dL (75-99)
[2017-10-31 12:04] LABS: Hemoglobin A1C 5.5 % (4.0-6.0)
--- NOTE | 2017-10-31 12:57 | P.PN ---
Subjective Progress Note Date: 10/31/17 Principal diagnosis: Acute hypoxic respiratory failure secondary to COPD exacerbation and bilateral pleural effusions This is a pleasant 72-year-old gentleman follows with Dr. Smiley as his primary care physician. He has a history of coronary artery disease with previous coronary artery bypass grafting 3 in 2006, peripheral vascular disease with bilateral stent placements, GI bleed, hypertension, hyperlipidemia , osteoarthritis, migraines. He also has chronic and ongoing tobacco dependence of greater than 60 years with a diagnosis of COPD. He is maintained on Symbicort and albuterol. He has not been seen by a quality control assessor in the past. He presented here to the emergency room early this morning with complaints of shortness of breath which started approximately 2 days ago. He had been out of his Ventolin rescue inhaler for some time. He denies any cough , congestion. No fever chills or night sweats. No nausea vomiting diarrhea. No chest pain. Just progressive shortness of breath. His initial O2 saturation was 79% on room air. He was hypertensive. Subsequently requiring BiPAP support set at 10/550% FiO2. Chest x-ray shows a small right pleural effusion with mild prominence of perihilar interstitial structures suspicious for pulmonary edema/congestion. Atelectasis of the left lower lobe. CT angiogram reveals bilateral pleural effusions right greater than left with associated atelectasis. There is evidence of emphysematous changes which are quite extensive. No pulmonary embolism. Echocardiogram reveals preserved left ventricular systolic function with ejection fraction 55-60%. No significant pulmonary hypertension. The results revealed WBC 9.7. Hemoglobin 8.7. Potassium 5.2 bicarb 21 creatinine 1.47. Troponin 0.084, 0.268. ProBNP 2360. EKG reveals no significant ST or T wave abnormalities. He is seen in consultation today on the selective care unit. He is awake and alert. He is tolerating the BiPAP currently. His only complaint is that of being thirsty. No worsening shortness of breath at this time. He denies any chest discomfort. No palpitations, lightheadedness or dizziness. The patient is seen again today 10/27/2017 in follow-up on the selective care unit. He is currently awake and alert and resting fairly comfortably in bed. He remains on the BiPAP throughout the night and during the day intermittently. Last evening he was off for some time and his saturations were 8889%. Ultrasound of the chest does reveal small bilateral pleural effusions right side greater at 5 cm. He has been afebrile. White count 13.8. Hemoglobin 8.2. Creatinine 1.57. Patient is seen again today 10/28/2017 in follow-up on the selective care unit. He is awake and alert in no acute distress. He is resting comfortably in bed. He appears less dyspneic today as compared to yesterday. He did undergo a right-sided thoracentesis with approximately 650 ML's of serosanguineous fluid removed. He is maintaining good O2 saturations in the mid 90s on 4 L/m per nasal cannula. He did utilize the BiPAP last night. Blood cultures reveal no growth to date. Pleural fluid culture reveals no growth thus far. White count 20.0. Hemoglobin 8.3. Creatinine 2.00. Reevaluated today on 10/29/2017, patient is doing better, however for some reason the patient loves to keep using his BiPAP. I recommended switching him today to a nasal cannula, and could be evaluated on outpatient basis whether he qualifies for BiPAP. The preliminary report on his pleural effusion which I drained a few days ago showed that the effusion is transudative in nature/ cardiac related. Patient remains on diuretics, and overall the patient is doing much better compared to how he felt when he came in. Today I have recommended at least resting the patient to see if he qualifies for home O2 and I will recommended albuterol with Atrovent updrafts 4 times a day when necessary , and he will benefit from another nebulizer machine at home. Patient was reevaluated today on 10/30/2017, feeling better, has been using BiPAP at night, presently on nasal cannula. I will recommended an ABG on this patient while on nasal cannula if we could document hypercapnia may even consider qualifying the patient for BiPAP at home. Patient did have thoracentesis, and the fluid was transudative in nature, hence it is more or less related to most likely diastolic congestive heart failure. Not parapneumonic and not related to malignancy. Cytology is still pending. Remains on bronchodilators, remains on steroids. On 10/31/2017 patient seen again in follow-up on selective care unit. He reports feeling better, breathing easier, remains on supplemental oxygen, currently at 3 L per nasal cannula with pulse ox is 91%. Since his home oxygen assessment was done, likely patient will need home oxygen arranged. Denies any fever or chills, vital signs are stable, his last chest x-ray was on 10/29/2017 shows COPD, and small left pleural effusion. Yesterday and ABG was completed, and this was done on FiO2 of 36%, however failed to qualify the patient for home BiPAP based on diagnosis of COPD. PO2 is 56, pCO2 of 36, and pH was 7.49, done on FiO2 of 36%, and patient most likely will qualify for home oxygen. Fluid cultures remain negative, blood cultures are negative. Fluid analysis showed transudative pleural effusion. Pleural fluid cytology is still pending. Remains on empiric antibiotics, and the form of Zithromax, Oral prednisone, and oral Lasix, in addition to nebulized bronchodilators. Today's labs were reviewed, WBC is 15.7, hemoglobin is 7.7, and the patient's spouse has son about patient's anemia. Patient has had no obvious source of bleeding, has previously history of gastric ulcers, and history of previous colonoscopy, with benign polyps removed. Renal profile is improving, BUN is 59, creatinine is 1.35. he is maintaining negative fluid balance. Lung sounds are clear. Overall doing well, stable. Will need to see Dr. Leavitt in the office post discharge. Objective - Vital Signs Vital signs: Vital Signs Temp 97.0 F L 10/31/17 08:00 Pulse 70 10/31/17 12:00 Resp 16 10/31/17 12:00 BP 152/64 10/31/17 11:20 Pulse Ox 91 L 10/31/17 11:20 Intake & Output 10/30/17 10/31/17 10/31/17 18:59 06:59 18:59 Intake Total 900 240 Output Total 750 950 825 Balance 150 -950 -585 Intake: Oral 900 240 Output: Urine 750 950 825 Other: Voiding Method Urinal Urinal - Exam GENERAL EXAM: Frail, cachectic. Alert, fairly comfortable in mild respiratory distress. Was on BiPAP last night, presently on nasal cannula at 3 L. HEAD: Normocephalic. EYES: Normal reaction of pupils, equal size. NOSE: Clear with pink turbinates. THROAT: No erythema or exudates. NECK: No masses, no JVD. CHEST: No chest wall deformity. LUNGS: Breath sounds are clear, diminished at the bases CVS: S1 and S2 normal with no audible murmur, regular rhythm. ABDOMEN: No hepatosplenomegaly, normal bowel sounds, no guarding or rigidity. SPINE: No scoliosis or deformity SKIN: No rashes CENTRAL NERVOUS SYSTEM: No focal deficits, tone is normal in all 4 extremities. EXTREMITIES: There is no peripheral edema. No clubbing, no cyanosis. Peripheral pulses are intact. - Labs CBC & Chem 7: 10/31/17 05:59 10/31/17 05:59 Labs: Abnormal Lab Results - Last 24 Hours (Table) 10/30/17 10/30/17 10/30/17 Range/Units 12:53 16:08 20:54 WBC (3.8-10.6) k/uL RBC (4.30-5.90) m/uL Hgb (13.0-17.5) gm/dL Hct (39.0-53.0) % MCHC (31.0-37.0) g/dL RDW (11.5-15.5) % ABG pH 7.49 H (7.35-7.45) ABG pO2 56 L (83-108) mmHg ABG HCO3 27 H (21-25) mmol/L ABG Total CO2 29 H (19-24) mmol/L ABG O2 Saturation 90.6 L (94-97) % Carbon Dioxide (22-30) mmol/L BUN (9-20) mg/dL Creatinine (0.66-1.25) mg/dL Glucose (74-99) mg/dL POC Glucose (mg/dL) 297 H 156 H (75-99) mg/dL 10/31/17 10/31/17 10/31/17 Range/Units 05:59 05:59 06:11 WBC 15.7 H (3.8-10.6) k/uL RBC 3.00 L (4.30-5.90) m/uL Hgb 7.7 L (13.0-17.5) gm/dL Hct 25.0 L (39.0-53.0) % MCHC 30.9 L (31.0-37.0) g/dL RDW 17.1 H (11.5-15.5) % ABG pH (7.35-7.45) ABG pO2 (83-108) mmHg ABG HCO3 (21-25) mmol/L ABG Total CO2 (19-24) mmol/L ABG O2 Saturation (94-97) % Carbon Dioxide 31 H (22-30) mmol/L BUN 59 H (9-20) mg/dL Creatinine 1.35 H (0.66-1.25) mg/dL Glucose 129 H (74-99) mg/dL POC Glucose (mg/dL) 159 H (75-99) mg/dL 10/31/17 Range/Units 11:16 WBC (3.8-10.6) k/uL RBC (4.30-5.90) m/uL Hgb (13.0-17.5) gm/dL Hct (39.0-53.0) % MCHC (31.0-37.0) g/dL RDW (11.5-15.5) % ABG pH (7.35-7.45) ABG pO2 (83-108) mmHg ABG HCO3 (21-25) mmol/L ABG Total CO2 (19-24) mmol/L ABG O2 Saturation (94-97) % Carbon Dioxide (22-30) mmol/L BUN (9-20) mg/dL Creatinine (0.66-1.25) mg/dL Glucose (74-99) mg/dL POC Glucose (mg/dL) 208 H (75-99) mg/dL Microbiology - Last 24 Hours (Table) 10/27/17 13:30 Gram Stain - Final Pleural Fluid Body Fluid Culture - Final 10/26/17 04:58 Blood Culture - Preliminary Blood No Growth after 120 hours Assessment and Plan Plan: Assessment: #1 Acute hypoxic respiratory failure secondary to an acute exacerbation of chronic obstructive pulmonary disease, acute exacerbation of diastolic congestive heart failure. #2 Chronic and ongoing tobacco dependence greater than 60 years. #3 Troponin leak. #4 History of coronary artery disease with previous coronary bypass grafting. #5 Peripheral vascular disease with bilateral stents to the lower extremities. #6 Acute renal failure. #7 Anemia of unclear etiology. History of GI bleed. #8 Hypertension. #9 Hyperlipidemia. #10 Leukocytosis, possibly steroid effect. #11 status post right-sided thoracentesis, fluid was transudative in nature, cardiac related unless proven otherwise. Recommendation: Blood gases were completed on FiO2 of 36%, and based on the results of patient does not qualify for home BiPAP unit based on diagnosis of COPD, but does qualify for home oxygen. Remains stable, denies any worsening dyspnea, denies any chest pain. He needs to diurese, and he is maintaining negative fluid balance. Cultures remain negative thus far. Patient's spouse has concerns about patient's anemia, patient has had no leaking while inpatient, his previous history of gastric ulcers, and benign polyps removed. Remains hemodynamically stable, increase activity as tolerated, patient is stable, and not require BiPAP support last night. From pulmonary standpoint patient is stable for discharge home today, on prednisone taper, complete 5-day course of Zithromax 500 mg daily, Symbicort, and Ventolin. I performed a history & physical examination of the patient and discussed their management with my nurse practitioner, Saray Galarza. I reviewed the nurse practitioner's note and agree with the documented findings and plan of care. Lung sounds are clear. The findings and the impression was discussed with the patient. I attest to the documentation by the nurse practitioner. Time with Patient: Less than 30
[2017-10-31 13:20] VITALS: BMI 21.4
--- NOTE | 2017-10-31 15:21 | P.DS ---
Providers Date of admission: 10/26/17 08:00 Expected date of discharge: 10/31/17 Attending physician: Ghassan Hutson MD Consults: 10/26/17 08:00 Consult Physician Routine Consulting Provider: Siri Arcos Consult Reason/Comments: paroxysmal Afib/ anticoagulation??? anemia Do you want consulting provider notified?: Yes 10/26/17 10:34 Consult Physician Routine Consulting Provider: Andrey Darling Consult Reason/Comments: copd Do you want consulting provider notified?: Yes Primary care physician: Víctor Smiley - Discharge Diagnosis(es) (1) Acute respiratory failure with hypoxia Current Visit: Yes Status: Acute (2) Acute exacerbation of CHF (congestive heart failure) Current Visit: Yes Status: Acute (3) Acute exacerbation of chronic obstructive airways disease Current Visit: Yes Status: Acute (4) Pleural effusion Current Visit: Yes Status: Acute (5) Acute kidney injury Current Visit: Yes Status: Acute (6) Iron deficiency anemia Current Visit: Yes Status: Acute (7) Iron deficiency Current Visit: Yes Status: Acute (8) Leukocytosis Current Visit: Yes Status: Acute (9) Elevated troponin Current Visit: Yes Status: Acute Hospital Course: The patient 72-year-old male with a past medical history of just of heart failure, COPD, coronary artery disease, hypertension, and dyslipidemia who presented to the emergency department with complaints of shortness of breath. In the ER he underwent an extensive evaluation. On arrival he was hypoxic at 79% on room air and hypertensive with a blood pressure of 211/51. His laboratory analysis showed anemia, hyperkalemia, acute kidney injury, and an anion gap metabolic acidosis. He was admitted with acute hypoxic respiratory failure secondary to an acute COPD exacerbation superimposed on the exacerbation of diastolic CHF found have an acute exacerbation of COPD and acute exacerbation of CHF with bilateral pleural effusion. He is admitted to the [facility] care for further monitoring and placed on BiPAP with the recommended diuresis with Lasix and started on Pulmicort, Solu-Medrol with scheduled and when necessary breathing treatments. He was seen by cardiology who recommended continuing with IV Lasix. He also was found have an elevated troponin which was felt to be secondary to a type II event or hypoxia. Echocardiogram was completed which showed a 55-60% and LVH. Kidney function started to decline and his fluid status had improved. His lasix was transitioned to PO. The patient had a right-sided thoracentesis of approximately 650 mL, pleural fluid analysis revealed a transudative effusion, negative for AFB malignancy or infection suggestive of a CHF exacerbation. The patient was noted to have a anemia which appears to be chronic his hemoglobin did drop from 8.7-7.7, given his previous history of gastritis and with the recent EGD colonoscopy in July 2017 which showed hemorrhoids and tubular adenomas, he was started on Protonix and ferrous sulfate to treat his iron deficiency anemia. As the patient improved, he was able to wean down his oxygen to 3 L and he was able to qualify for oxygen at home. He was subsequently discharged home in stable condition told to follow-up with his PCP Dr. Carrero and Dr. Leavitt. This discharge process took approximately 35 minutes Prescriptions at discharge Azithromycin 500 mg by mouth daily Prednisone taper Norvasc 10mg PO daily Lasix 40 mg by mouth daily Protonix 40 mg by mouth twice a day Physical exam at discharge GENERAL EXAM: Frail, cachectic. Alert, fairly comfortable in mild respiratory distress. Was on BiPAP last night, presently on nasal cannula at 3 L. HEAD: Normocephalic. EYES: Normal reaction of pupils, equal size. NOSE: Clear with pink turbinates. THROAT: No erythema or exudates. NECK: No masses, no JVD. CHEST: No chest wall deformity. LUNGS: Breath sounds are clear, diminished at the bases CVS: S1 and S2 normal with no audible murmur, regular rhythm. ABDOMEN: No hepatosplenomegaly, normal bowel sounds, no guarding or rigidity. SPINE: No scoliosis or deformity SKIN: No rashes CENTRAL NERVOUS SYSTEM: No focal deficits, tone is normal in all 4 extremities. EXTREMITIES: There is no peripheral edema. No clubbing, no cyanosis. Peripheral pulses are intact Patient Condition at Discharge: Good Plan - Discharge Summary Discharge Rx Participant: No New Discharge Prescriptions: New amLODIPine [Norvasc] 10 mg PO DAILY #60 tab Ferrous Sulfate [Iron (65 MG Elemental)] 325 mg PO BID-W/MEALS #60 tab Furosemide [Lasix] 40 mg PO DAILY #30 tab Pantoprazole [Protonix] 40 mg PO AC-BID #60 tablet.[address] Vazquez hydrALAZINE HCL [Apresoline] 50 mg PO TID Metoprolol Tartrate [Lopressor] 50 mg PO BID Atorvastatin [Lipitor] 80 mg PO DAILY Hydrocodone/Acetaminophen [Hydrocodone/Acetaminophen 10-325] 1 tab PO Q6HR PRN PRN Reason: Pain Aspirin [Adult Low Dose Aspirin EC] 81 mg PO QAM Budesonide-Formot 160-4.5 Mcg [Symbicort 160-4.5 Mcg Inhaler] 2 puff INHALATION RT-BID Albuterol Inhaler [Ventolin Hfa Inhaler] 1 - 2 puff INHALATION RT-Q6H PRN PRN Reason: Shortness Of Breath Discontinued amLODIPine BESYLATE [Norvasc] 5 mg PO DAILY Discharge Medication List Atorvastatin [Lipitor] 80 mg PO DAILY 12/25/13 [History] Hydrocodone/Acetaminophen [Hydrocodone/Acetaminophen 10-325] 1 tab PO Q6HR PRN 12/25/13 [History] Metoprolol Tartrate [Lopressor] 50 mg PO BID 12/25/13 [History] hydrALAZINE HCL [Apresoline] 50 mg PO TID 12/25/13 [History] Aspirin [Adult Low Dose Aspirin EC] 81 mg PO QAM 05/19/17 [History] Budesonide-Formot 160-4.5 Mcg [Symbicort 160-4.5 Mcg Inhaler] 2 puff INHALATION RT-BID 05/19/17 [History] Albuterol Inhaler [Ventolin Hfa Inhaler] 1 - 2 puff INHALATION RT-Q6H PRN [History] Ferrous Sulfate [Iron (65 MG Elemental)] 325 mg PO BID-W/MEALS #60 tab 10/31/17 [Rx] Furosemide [Lasix] 40 mg PO DAILY #30 tab 10/31/17 [Rx] Pantoprazole [Protonix] 40 mg PO AC-BID #60 tablet. 10/31/17 [Rx] amLODIPine [Norvasc] 10 mg PO DAILY #60 tab 10/31/17 [Rx] Follow up Appointment(s)/Referral(s): Joelle Leavitt MD [STAFF PHYSICIAN] - 1 Week [facility], [NON-STAFF] - Víctor Smiley MD [Primary Care Provider] - 11/07/17 1:00 pm () Activity/Diet/Wound Care/Special Instructions: [facility] for home O2 and [phone] pt will need indigent funds Discharge Disposition: HOME SELF-CARE
--- NOTE | 2017-10-31 15:53 | PN ---
PROGRESS NOTE Mr. Duncan is a 72-year-old male with known history of coronary artery disease, status post percutaneous revascularization and coronary artery bypass grafting, history of chronic tobacco use and severe chronic obstructive lung disease, who presented with symptoms of progressive dyspnea, was found to have severe her pleural effusion and has underwent thoracentesis. He is feeling quite well this morning, anxious to go home. Denies any symptoms of chest pain. No dizziness. No palpitation. On the monitor he is in sinus mechanism with frequent PACs. The patient continues to smoke although he denies that at this point. He continues to be at this time on amlodipine 10 mg daily, aspirin once a day, Lipitor 80 mg daily, Lasix 40 mg daily, hydralazine 100 mg 3 times a day, metoprolol tartrate 50 mg twice a day, and prednisone. PHYSICAL EXAMINATION: Blood pressure running in the 130 to 160 with a heart rate in the 80s. LUNGS: Decreased exchange with mild decrease at the right base. HEART: Regular rate and rhythm. S1, S2. No S3 with systolic murmur. No diastolic murmur. ABDOMEN: Soft, nontender. EXTREMITIES: No edema. LAB DATA: Lab data revealed a hemoglobin of 7.7, BUN and creatinine of 59 and 1.35. IMPRESSION: 1. Symptoms of progressive dyspnea with a combination of exacerbation of chronic obstructive pulmonary disease and probable congestive heart failure on the basis of diastolic dysfunction. 2. History of coronary artery disease. 3. Chronic tobacco use. 4. Renal failure. 5. Anemia. RECOMMENDATION: I see no evidence of atrial fibrillation at this time. From the cardiac standpoint, he should be able to be discharged home and followed as an outpatient as scheduled. MMODL / IJN: [id number] /
[2017-10-31 16:37] LABS: Glucose,Whole Blood 199 mg/dL (75-99)
[2017-10-31] MEDS ORDERED: PANTOPRAZOLE 40 MG TABLET PO SCH (17:30)
== END 2017-10-31 17:43 | disposition home health service (06) | DRG 280 ==
LOC: EC 04:41 → 6SEL 08:00
PROVIDERS: ADMIT Family Medicine; ATTEND Family Medicine
PROC: 5A09557 Assistance with Respiratory Ventilation, Greater than 96 Consecutive Hours, Continuous Positive Airway Pressure (ICD-10-PCS; principal; 2017-10-26)
PROC: 0W993ZZ Drainage of Right Pleural Cavity, Percutaneous Approach (ICD-10-PCS; 2017-10-27)
DX: I11.0 Hypertensive heart disease with heart failure (principal); J96.01 Acute respiratory failure with hypoxia; I21.A1 Myocardial infarction type 2; N17.9 Acute kidney failure, unspecified; I16.1 Hypertensive emergency; E87.2 Acidosis; R64 Cachexia; J98.11 Atelectasis; I50.33 Acute on chronic diastolic (congestive) heart failure; E87.5 Hyperkalemia; I27.20 Pulmonary hypertension, unspecified; J43.9 Emphysema, unspecified; I08.1 Rheumatic disorders of both mitral and tricuspid valves; D50.9 Iron deficiency anemia, unspecified; I25.10 Atherosclerotic heart disease of native coronary artery without angina pectoris; I25.2 Old myocardial infarction; E78.5 Hyperlipidemia, unspecified; K21.9 Gastro-esophageal reflux disease without esophagitis; G89.29 Other chronic pain; M54.9 Dorsalgia, unspecified; K44.9 Diaphragmatic hernia without obstruction or gangrene; D72.829 Elevated white blood cell count, unspecified; K29.70 Gastritis, unspecified, without bleeding; K64.9 Unspecified hemorrhoids; R73.9 Hyperglycemia, unspecified; T38.0X5A Adverse effect of glucocorticoids and synthetic analogues, initial encounter; M19.91 Primary osteoarthritis, unspecified site; F17.200 Nicotine dependence, unspecified, uncomplicated; Z71.6 Tobacco abuse counseling; G43.909 Migraine, unspecified, not intractable, without status migrainosus; Z79.82 Long term (current) use of aspirin; Z79.51 Long term (current) use of inhaled steroids; Z79.899 Other long term (current) drug therapy; Z98.42 Cataract extraction status, left eye; Z98.41 Cataract extraction status, right eye; Z95.5 Presence of coronary angioplasty implant and graft; Z95.1 Presence of aortocoronary bypass graft; Z86.010 Personal history of colon polyps; Z87.01 Personal history of pneumonia (recurrent); Z82.61 Family history of arthritis; Z80.9 Family history of malignant neoplasm, unspecified; Z87.11 Personal history of peptic ulcer disease; Z95.828 Presence of other vascular implants and grafts
CPT/HCPCS: 36415; 36600; 71045; 71046; 71275; 76604; 80048; 80053; 80061; 82550; 82553; 82728; 82805; 83036; 83540; 83550; 83615; 83735; 83880; 84157; 84484; 85025; 85027; 85379; 85610; 85730; 86850; 86900; 86901; 87040; 87070; 87205; 88108; 88305; 88341; 89050; 93005; 93306; 94640; 94644; 94660; 94760; 96361; 96372; 96374; 96375; 99291

== ENCOUNTER 2017-11-09 01:55 | Inpatient (IN) | payer MEDICARE, BC ==
[2017-11-09] MEDS ORDERED: IPRATROPIUM-ALBUTEROL 3 ML NEB INHALATION PRN (02:08)
[2017-11-09] MEDS ORDERED: IPRATROPIUM-ALBUTEROL 3 ML NEB INHALATION STA (02:08)
[2017-11-09] MEDS ORDERED: methylPREDNISolone SOD SUCCI 125 MG/2 ML VIAL IV STA (02:08)
[2017-11-09] MEDS ORDERED: LORazepam 2 MG/ML INJ IV PRN ×2 (02:08)
[2017-11-09] MEDS: PROPOFOL 1,000 MG in EMPTY BAG 1 BAG IV SCH (02:10)
--- NOTE | 2017-11-09 02:12 | ED ---
General Adult HPI - General Chief complaint: Shortness of Breath Stated complaint: Respiratory Distress Time Seen by Provider: 11/09/17 01:57 Source: EMS, RN notes reviewed Mode of arrival: EMS Limitations: altered mental status, physical limitation - History of Present Illness Initial comments: Patient is a 72-year-old male presenting to the emergency Department as a priority 1 patient by EMS for respiratory distress. Patient is nonverbal at this time. Patient reportedly has a history of COPD and CHF. poorly was recently discharged from the hospital. Patient is on CPAP when he arrives. - Related Data Home Medications Medication Instructions Recorded Confirmed Atorvastatin [Lipitor] 80 mg PO DAILY 12/25/13 10/26/17 Hydrocodone/Acetaminophen 1 tab PO Q6HR PRN 12/25/13 10/26/17 [Hydrocodone/Acetaminophen 10-325] Metoprolol Tartrate [Lopressor] 50 mg PO BID 12/25/13 10/26/17 hydrALAZINE HCL [Apresoline] 50 mg PO TID 12/25/13 10/26/17 Aspirin [Adult Low Dose Aspirin EC] 81 mg PO QAM 05/19/17 10/26/17 Budesonide-Formot 160-4.5 Mcg 2 puff INHALATION RT-BID 05/19/17 10/26/17 [Symbicort 160-4.5 Mcg Inhaler] Albuterol Inhaler [Ventolin Hfa 1 - 2 puff INHALATION RT-Q6H PRN 10/26/17 Inhaler] Previous Rx's Medication Instructions Recorded Albuterol Inhaler [Ventolin Hfa 1 - 2 puff INHALATION RT-Q6H PRN 10/31/17 Inhaler] #1 inhaler Azithromycin [Zithromax] 500 mg PO DAILY 3 Days #3 tab 10/31/17 Budesonide-Formot 160-4.5 Mcg 2 puff INHALATION BID #1 inhaler 10/31/17 [Symbicort 160-4.5 Mcg Inhaler] Ferrous Sulfate [Iron (65 MG 325 mg PO BID-W/MEALS #60 tab 10/31/17 Elemental)] Furosemide [Lasix] 40 mg PO DAILY #30 tab 10/31/17 Ipratropium-Albuterol Nebulize 3 ml INHALATION Q6H #30 neb 10/31/17 [Duoneb 0.5 mg-3 mg/3 ml Soln] Pantoprazole [Protonix] 40 mg PO AC-BID #60 tablet. 10/31/17 amLODIPine [Norvasc] 10 mg PO DAILY #60 tab 10/31/17 predniSONE 10 mg PO DAILY 9 Days #18 tab 10/31/17 Allergies Allergy/AdvReac Type Severity Reaction Status Date / Time No Known Allergies Allergy Verified 10/26/17 07:38 Review of Systems ROS Statement: Those systems with pertinent positive or pertinent negative responses have been documented in the HPI. ROS Other: All systems not noted in ROS Statement are negative. Limitations: ROS unobtainable due to patients medical condition Past Medical History Past Medical History: Coronary Artery Disease (CAD), Chest Pain / Angina, Heart Failure, COPD, GERD/Reflux, GI Bleed, Hyperlipidemia, Hypertension, Myocardial Infarction ([place]), Osteoarthritis (OA), Pneumonia, Vascular Disorder Additional Past Medical History / Comment(s): Pneumonia/sepsis after appendectomy, chronic back pain, migraines, occ "heart fluttering", SOB with activity, PAD, hiatal hernia, gastric ulcer, lower GI bleed, colon polyp, hemorrhoids, bilateral tinnitis, past elbow/rib fractures. Last Myocardial Infarction Date:: 2006 History of Any Multi-Drug Resistant Organisms: None Reported Past Surgical History: Appendectomy, Coronary Bypass/CABG, Heart Catheterization With Stent Additional Past Surgical History / Comment(s): 07/2017 EGD/COLONOSCOPY WITH POLYPECTOMY, TRIPLE CABG 2006. PCI/STENT IN 2000. STENTS PAT LEGS. EXC bilat CATARACT 05/25/17. PAIN CLINIC PROCEDURES Past Anesthesia/Blood Transfusion Reactions: No Reported Reaction Date of Last Stent Placement:: 2000 Past Psychological History: No Psychological Hx Reported Smoking Status: Former smoker - Past Family History Mother Family Medical History: Cancer, Osteoarthritis (OA) General Exam Limitations: altered mental status, physical limitation General appearance: alert, in distress Head exam: Present: atraumatic Eye exam: Present: normal appearance ENT exam: Present: normal oropharynx Neck exam: Present: normal inspection Respiratory exam: Present: respiratory distress, accessory muscle use, decreased breath sounds Cardiovascular Exam: Present: regular rate, normal rhythm GI/Abdominal exam: Present: soft. Absent: tenderness Extremities exam: Present: normal inspection. Absent: pedal edema, calf tenderness Neurological exam: Present: alert, altered Psychiatric exam: Present: other (Nonverbal) Skin exam: Present: diaphoretic Course Vital Signs 11/09/17 11/09/17 11/09/17 01:57 02:03 02:05 Temperature Pulse Rate 97 Respiratory 56 H Rate Blood Pressure 215/101 O2 Sat by Pulse 93 L 97 Oximetry 11/09/17 11/09/17 11/09/17 02:07 02:15 02:27 Temperature 97.0 F L Pulse Rate 98 82 79 Respiratory 28 H 27 H 27 H Rate Blood Pressure 188/78 201/91 225/91 O2 Sat by Pulse 100 100 99 Oximetry 11/09/17 11/09/17 11/09/17 02:30 02:43 02:45 Temperature Pulse Rate 72 75 72 Respiratory 26 H 27 H Rate Blood Pressure 147/68 168/70 147/68 O2 Sat by Pulse 100 100 Oximetry 11/09/17 11/09/17 02:49 02:58 Temperature Pulse Rate 72 73 Respiratory 28 H 27 H Rate Blood Pressure 147/68 166/72 O2 Sat by Pulse 99 100 Oximetry EKG Findings - EKG Comments: EKG Findings:: No sinus rhythm 96. MS 148. QRS 108. QT 342. QTC 432. Normal axis. Incomplete left bundle-branch block. Some lateral ST depression. Medical Decision Making - Medical Decision Making Patient was twice reexamined. Family was updated. Patient is improved with intubation. Case was discussed in detail with Dr. Denson, who will consult for critical care. Dr. mayorga has been paged for admission. - Lab Data Result diagrams: 11/09/17 02:10 11/09/17 02:10 Lab Results 11/09/17 11/09/17 11/09/17 Range/Units 02:03 02:10 02:10 WBC 15.5 H (3.8-10.6) k/uL RBC 2.88 L (4.30-5.90) m/uL Hgb 7.4 L (13.0-17.5) gm/dL Hct 24.8 L (39.0-53.0) % MCV 86.2 (80.0-100.0) fL MCH 25.7 (25.0-35.0) pg MCHC 29.8 L (31.0-37.0) g/dL RDW 19.4 H (11.5-15.5) % Plt Count 276 (150-450) k/uL Neutrophils % 76 % Lymphocytes % 18 % Monocytes % 5 % Eosinophils % 0 % Basophils % 0 % Neutrophils # 11.7 H (1.3-7.7) k/uL Lymphocytes # 2.7 (1.0-4.8) k/uL Monocytes # 0.7 (0-1.0) k/uL Eosinophils # 0.1 (0-0.7) k/uL Basophils # 0.0 (0-0.2) k/uL Hypochromasia Marked Anisocytosis Slight PT (9.0-12.0) sec INR (<1.2) APTT (22.0-30.0) sec Sample Site ABG pH (7.35-7.45) ABG pCO2 (35-45) mmHg ABG pO2 (83-108) mmHg ABG HCO3 (21-25) mmol/L ABG Total CO2 (19-24) mmol/L ABG O2 Saturation (94-97) % ABG Base Excess mmol/L Ned Test FiO2 % Sodium (137-145) mmol/L Potassium (3.5-5.1) mmol/L Chloride (98-107) mmol/L Carbon Dioxide (22-30) mmol/L Anion Gap mmol/L BUN (9-20) mg/dL Creatinine (0.66-1.25) mg/dL Est GFR (CKD-EPI)AfAm (>60 ml/min/1.73 sqM) Est GFR (CKD-EPI)NonAf (>60 ml/min/1.73 sqM) Glucose (74-99) mg/dL POC Glucose (mg/dL) 179 H (75-99) mg/dL POC Glu [employer] Black Belt Engineer ID Tracie Guardado Calcium (8.4-10.2) mg/dL Total Bilirubin (0.2-1.3) mg/dL AST (17-59) U/L ALT (21-72) U/L Alkaline Phosphatase (38-126) U/L Total Creatine Kinase 43 L (55-170) U/L CK-MB (CK-2) 0.9 (0.0-2.4) ng/mL CK-MB (CK-2) Rel Index 2.1 Troponin I 0.098 H* (0.000-0.034) ng/mL NT-Pro-B Natriuret Pep pg/mL Total Protein (6.3-8.2) g/dL Albumin (3.5-5.0) g/dL 11/09/17 11/09/17 11/09/17 Range/Units 02:10 02:10 02:10 WBC (3.8-10.6) k/uL RBC (4.30-5.90) m/uL Hgb (13.0-17.5) gm/dL Hct (39.0-53.0) % MCV (80.0-100.0) fL MCH (25.0-35.0) pg MCHC (31.0-37.0) g/dL RDW (11.5-15.5) % Plt Count (150-450) k/uL Neutrophils % % Lymphocytes % % Monocytes % % Eosinophils % % Basophils % % Neutrophils # (1.3-7.7) k/uL Lymphocytes # (1.0-4.8) k/uL Monocytes # (0-1.0) k/uL Eosinophils # (0-0.7) k/uL Basophils # (0-0.2) k/uL Hypochromasia Anisocytosis PT 9.4 (9.0-12.0) sec INR 0.9 (<1.2) APTT 19.4 L (22.0-30.0) sec Sample Site ABG pH (7.35-7.45) ABG pCO2 (35-45) mmHg ABG pO2 (83-108) mmHg ABG HCO3 (21-25) mmol/L ABG Total CO2 (19-24) mmol/L ABG O2 Saturation (94-97) % ABG Base Excess mmol/L Ned Test FiO2 % Sodium 137 (137-145) mmol/L Potassium 5.2 H (3.5-5.1) mmol/L Chloride 101 (98-107) mmol/L Carbon Dioxide 29 (22-30) mmol/L Anion Gap 7 mmol/L BUN 33 H (9-20) mg/dL Creatinine 1.30 H (0.66-1.25) mg/dL Est GFR (CKD-EPI)AfAm 62 (>60 ml/min/1.73 sqM) Est GFR (CKD-EPI)NonAf 54 (>60 ml/min/1.73 sqM) Glucose 176 H (74-99) mg/dL POC Glucose (mg/dL) (75-99) mg/dL POC Glu [employer] Black Belt Engineer ID Calcium 8.8 (8.4-10.2) mg/dL Total Bilirubin 0.7 (0.2-1.3) mg/dL AST 31 (17-59) U/L ALT 65 (21-72) U/L Alkaline Phosphatase 62 (38-126) U/L Total Creatine Kinase (55-170) U/L CK-MB (CK-2) (0.0-2.4) ng/mL CK-MB (CK-2) Rel Index Troponin I (0.000-0.034) ng/mL NT-Pro-B Natriuret Pep 3210 pg/mL Total Protein 6.2 L (6.3-8.2) g/dL Albumin 3.8 (3.5-5.0) g/dL 11/09/17 Range/Units 02:40 WBC (3.8-10.6) k/uL RBC (4.30-5.90) m/uL Hgb (13.0-17.5) gm/dL Hct (39.0-53.0) % MCV (80.0-100.0) fL MCH (25.0-35.0) pg MCHC (31.0-37.0) g/dL RDW (11.5-15.5) % Plt Count (150-450) k/uL Neutrophils % % Lymphocytes % % Monocytes % % Eosinophils % % Basophils % % Neutrophils # (1.3-7.7) k/uL Lymphocytes # (1.0-4.8) k/uL Monocytes # (0-1.0) k/uL Eosinophils # (0-0.7) k/uL Basophils # (0-0.2) k/uL Hypochromasia Anisocytosis PT (9.0-12.0) sec INR (<1.2) APTT (22.0-30.0) sec Sample Site Left Brachial ABG pH 7.24 L (7.35-7.45) ABG pCO2 64 H (35-45) mmHg ABG pO2 338 H (83-108) mmHg ABG HCO3 28 H (21-25) mmol/L ABG Total CO2 30 H (19-24) mmol/L ABG O2 Saturation 100.0 H (94-97) % ABG Base Excess 0.3 mmol/L Ned Test Yes FiO2 100 % Sodium (137-145) mmol/L Potassium (3.5-5.1) mmol/L Chloride (98-107) mmol/L Carbon Dioxide (22-30) mmol/L Anion Gap mmol/L BUN (9-20) mg/dL Creatinine (0.66-1.25) mg/dL Est GFR (CKD-EPI)AfAm (>60 ml/min/1.73 sqM) Est GFR (CKD-EPI)NonAf (>60 ml/min/1.73 sqM) Glucose (74-99) mg/dL POC Glucose (mg/dL) (75-99) mg/dL POC Glu [employer] Black Belt Engineer ID Calcium (8.4-10.2) mg/dL Total Bilirubin (0.2-1.3) mg/dL AST (17-59) U/L ALT (21-72) U/L Alkaline Phosphatase (38-126) U/L Total Creatine Kinase (55-170) U/L CK-MB (CK-2) (0.0-2.4) ng/mL CK-MB (CK-2) Rel Index Troponin I (0.000-0.034) ng/mL NT-Pro-B Natriuret Pep pg/mL Total Protein (6.3-8.2) g/dL Albumin (3.5-5.0) g/dL - Radiology Data Radiology results: image reviewed (Chest x-ray shows pulmonary interstitial and alveolar edema. Consistent with congestive heart failure/pulmonary edema.) Critical Care Time Critical Care Time: Yes Total Critical Care Time: 36 Disposition Clinical Impression: Acute respiratory failure, Pulmonary edema Disposition: ADMITTED IP TO THIS HOSP Condition: Critical Is patient prescribed a controlled substance at d/c from ED?: No Referrals: Víctor Smiley MD [Primary Care Provider] - 1-2 days Decision Time: 03:40
[2017-11-09 02:24] LABS: Glucose,Whole Blood 179 mg/dL (75-99)
[2017-11-09] MEDS ORDERED: MIDAZOLAM 2 MG/2 ML VIAL IV STA (02:24)
[2017-11-09] MEDS ORDERED: MIDAZOLAM 2 MG/2 ML VIAL IV ONE (02:24)
[2017-11-09] MEDS ORDERED: SUCCINYLCHOLINE CHLORIDE VIAL 200 MG/10 ML VIAL IV STA (02:24)
[2017-11-09 02:26] LABS: Anisocytosis Slight; Basophils % (A) 0 %; Eosinophils # (A) 0.1 k/uL (0-0.7); Eosinophils % (A) 0 %; HCT 24.8 % (39.0-53.0); HGB 7.4 gm/dL (13.0-17.5); Hypochromasia Marked; Lymphocytes # (A) 2.7 k/uL (1.0-4.8); Lymphocytes % (A) 18 %; MCH 25.7 pg (25.0-35.0); MCHC 29.8 g/dL (31.0-37.0); MCV 86.2 fL (80.0-100.0); Mean Platelet Volume 7.1; Monocytes # (A) 0.7 k/uL (0-1.0); Monocytes % (A) 5 %; Neutrophils # (A) 11.7 k/uL (1.3-7.7); Neutrophils % (A) 76 %; Platelet Count 276 k/uL (150-450); RBC 2.88 m/uL (4.30-5.90); RDW 19.4 % (11.5-15.5); WBC 15.5 k/uL (3.8-10.6)
[2017-11-09] MEDS ORDERED: MIDAZOLAM 1 MG/ML 5 ML VIAL IV STA (02:31)
[2017-11-09 02:33] LABS: Albumin 3.8 g/dL (3.5-5.0); Calcium 8.8 mg/dL (8.4-10.2); Potassium 5.2 mmol/L (3.5-5.1); Total Bilirubin 0.7 mg/dL (0.2-1.3); Total Protein 6.2 g/dL (6.3-8.2)
[2017-11-09] MEDS ORDERED: NITROGLYCERIN OINT 1 INCH/GM PACKET TOPICAL STA (02:33)
[2017-11-09] MEDS ORDERED: FUROSEMIDE 10 MG/ML 4 ML VIAL IV STA (02:33)
--- NOTE | 2017-11-09 02:33 | XR ---
EXAMINATION TYPE: XR chest 1V portable DATE OF EXAM: 11/09/2017 COMPARISON: 10/29/2017 HISTORY: Tube placement TECHNIQUE: Single frontal view of the chest is obtained. FINDINGS: Endotracheal tube is 7 cm from the damian. Nasogastric tube appears in good position. Ther e is pulmonary interstitial and alveolar edema. Heart is enlarged. There are chest leads. There are s ternal wires. IMPRESSION: Congestive heart failure. Pulmonary edema. This appears new compared to old exam.
[2017-11-09 02:38] LABS: INR 0.9 (<1.2); Prothrombin Time 9.4 sec (9.0-12.0)
[2017-11-09 02:45] LABS: Partial Thromboplastin Time 19.4 sec (22.0-30.0)
[2017-11-09 02:49] LABS: ABG Base Excess 0.3 mmol/L; ABG HCO3 28 mmol/L (21-25); ABG PCO2 64 mmHg (35-45); ABG PH 7.24 (7.35-7.45); ABG PO2 338 mmHg (83-108); ABG TCO2 30 mmol/L (19-24)
[2017-11-09 02:57] LABS: Creatine Kinase MB 0.9 ng/mL (0.0-2.4)
[2017-11-09 03:05] LABS: Troponin I 0.098 ng/mL (0.000-0.034)
[2017-11-09] MEDS ORDERED: NALOXONE 0.4 MG/ML 1 ML VIAL IV PRN (03:41)
[2017-11-09] MEDS ORDERED: ASPIRIN 325 MG TAB PO STA (03:41)
[2017-11-09] MEDS ORDERED: ASPIRIN 300 MG SUPP RECTAL STA (04:02)
--- NOTE | 2017-11-09 04:47 | ED ---
Medical Decision Making - Lab Data Result diagrams: 11/09/17 02:10 11/09/17 02:10 Lab Results 11/09/17 11/09/17 11/09/17 Range/Units 02:03 02:10 02:10 WBC 15.5 H (3.8-10.6) k/uL RBC 2.88 L (4.30-5.90) m/uL Hgb 7.4 L (13.0-17.5) gm/dL Hct 24.8 L (39.0-53.0) % MCV 86.2 (80.0-100.0) fL MCH 25.7 (25.0-35.0) pg MCHC 29.8 L (31.0-37.0) g/dL RDW 19.4 H (11.5-15.5) % Plt Count 276 (150-450) k/uL Neutrophils % 76 % Lymphocytes % 18 % Monocytes % 5 % Eosinophils % 0 % Basophils % 0 % Neutrophils # 11.7 H (1.3-7.7) k/uL Lymphocytes # 2.7 (1.0-4.8) k/uL Monocytes # 0.7 (0-1.0) k/uL Eosinophils # 0.1 (0-0.7) k/uL Basophils # 0.0 (0-0.2) k/uL Hypochromasia Marked Anisocytosis Slight PT (9.0-12.0) sec INR (<1.2) APTT (22.0-30.0) sec Sample Site ABG pH (7.35-7.45) ABG pCO2 (35-45) mmHg ABG pO2 (83-108) mmHg ABG HCO3 (21-25) mmol/L ABG Total CO2 (19-24) mmol/L ABG O2 Saturation (94-97) % ABG Base Excess mmol/L Ned Test FiO2 % Sodium (137-145) mmol/L Potassium (3.5-5.1) mmol/L Chloride (98-107) mmol/L Carbon Dioxide (22-30) mmol/L Anion Gap mmol/L BUN (9-20) mg/dL Creatinine (0.66-1.25) mg/dL Est GFR (CKD-EPI)AfAm (>60 ml/min/1.73 sqM) Est GFR (CKD-EPI)NonAf (>60 ml/min/1.73 sqM) Glucose (74-99) mg/dL POC Glucose (mg/dL) 179 H (75-99) mg/dL POC Glu Terminal Make Up Operator ID Tracie Guardado Calcium (8.4-10.2) mg/dL Total Bilirubin (0.2-1.3) mg/dL AST (17-59) U/L ALT (21-72) U/L Alkaline Phosphatase (38-126) U/L Total Creatine Kinase 43 L (55-170) U/L CK-MB (CK-2) 0.9 (0.0-2.4) ng/mL CK-MB (CK-2) Rel Index 2.1 Troponin I 0.098 H* (0.000-0.034) ng/mL NT-Pro-B Natriuret Pep pg/mL Total Protein (6.3-8.2) g/dL Albumin (3.5-5.0) g/dL 11/09/17 11/09/17 11/09/17 Range/Units 02:10 02:10 02:10 WBC (3.8-10.6) k/uL RBC (4.30-5.90) m/uL Hgb (13.0-17.5) gm/dL Hct (39.0-53.0) % MCV (80.0-100.0) fL MCH (25.0-35.0) pg MCHC (31.0-37.0) g/dL RDW (11.5-15.5) % Plt Count (150-450) k/uL Neutrophils % % Lymphocytes % % Monocytes % % Eosinophils % % Basophils % % Neutrophils # (1.3-7.7) k/uL Lymphocytes # (1.0-4.8) k/uL Monocytes # (0-1.0) k/uL Eosinophils # (0-0.7) k/uL Basophils # (0-0.2) k/uL Hypochromasia Anisocytosis PT 9.4 (9.0-12.0) sec INR 0.9 (<1.2) APTT 19.4 L (22.0-30.0) sec Sample Site ABG pH (7.35-7.45) ABG pCO2 (35-45) mmHg ABG pO2 (83-108) mmHg ABG HCO3 (21-25) mmol/L ABG Total CO2 (19-24) mmol/L ABG O2 Saturation (94-97) % ABG Base Excess mmol/L Ned Test FiO2 % Sodium 137 (137-145) mmol/L Potassium 5.2 H (3.5-5.1) mmol/L Chloride 101 (98-107) mmol/L Carbon Dioxide 29 (22-30) mmol/L Anion Gap 7 mmol/L BUN 33 H (9-20) mg/dL Creatinine 1.30 H (0.66-1.25) mg/dL Est GFR (CKD-EPI)AfAm 62 (>60 ml/min/1.73 sqM) Est GFR (CKD-EPI)NonAf 54 (>60 ml/min/1.73 sqM) Glucose 176 H (74-99) mg/dL POC Glucose (mg/dL) (75-99) mg/dL POC Glu Terminal Make Up Operator ID Calcium 8.8 (8.4-10.2) mg/dL Total Bilirubin 0.7 (0.2-1.3) mg/dL AST 31 (17-59) U/L ALT 65 (21-72) U/L Alkaline Phosphatase 62 (38-126) U/L Total Creatine Kinase (55-170) U/L CK-MB (CK-2) (0.0-2.4) ng/mL CK-MB (CK-2) Rel Index Troponin I (0.000-0.034) ng/mL NT-Pro-B Natriuret Pep 3210 pg/mL Total Protein 6.2 L (6.3-8.2) g/dL Albumin 3.8 (3.5-5.0) g/dL 11/09/17 Range/Units 02:40 WBC (3.8-10.6) k/uL RBC (4.30-5.90) m/uL Hgb (13.0-17.5) gm/dL Hct (39.0-53.0) % MCV (80.0-100.0) fL MCH (25.0-35.0) pg MCHC (31.0-37.0) g/dL RDW (11.5-15.5) % Plt Count (150-450) k/uL Neutrophils % % Lymphocytes % % Monocytes % % Eosinophils % % Basophils % % Neutrophils # (1.3-7.7) k/uL Lymphocytes # (1.0-4.8) k/uL Monocytes # (0-1.0) k/uL Eosinophils # (0-0.7) k/uL Basophils # (0-0.2) k/uL Hypochromasia Anisocytosis PT (9.0-12.0) sec INR (<1.2) APTT (22.0-30.0) sec Sample Site Left Brachial ABG pH 7.24 L (7.35-7.45) ABG pCO2 64 H (35-45) mmHg ABG pO2 338 H (83-108) mmHg ABG HCO3 28 H (21-25) mmol/L ABG Total CO2 30 H (19-24) mmol/L ABG O2 Saturation 100.0 H (94-97) % ABG Base Excess 0.3 mmol/L Ned Test Yes FiO2 100 % Sodium (137-145) mmol/L Potassium (3.5-5.1) mmol/L Chloride (98-107) mmol/L Carbon Dioxide (22-30) mmol/L Anion Gap mmol/L BUN (9-20) mg/dL Creatinine (0.66-1.25) mg/dL Est GFR (CKD-EPI)AfAm (>60 ml/min/1.73 sqM) Est GFR (CKD-EPI)NonAf (>60 ml/min/1.73 sqM) Glucose (74-99) mg/dL POC Glucose (mg/dL) (75-99) mg/dL POC Glu Terminal Make Up Operator ID Calcium (8.4-10.2) mg/dL Total Bilirubin (0.2-1.3) mg/dL AST (17-59) U/L ALT (21-72) U/L Alkaline Phosphatase (38-126) U/L Total Creatine Kinase (55-170) U/L CK-MB (CK-2) (0.0-2.4) ng/mL CK-MB (CK-2) Rel Index Troponin I (0.000-0.034) ng/mL NT-Pro-B Natriuret Pep pg/mL Total Protein (6.3-8.2) g/dL Albumin (3.5-5.0) g/dL Disposition Clinical Impression: Acute respiratory failure, Pulmonary edema Disposition: ADMITTED IP TO THIS [facility] Condition: Critical Procedures - Intubation Time Out Performed: Yes (Patient was intubated on arrival) Sedative: Versed Paralytic: Succinylcholine Laryngoscope: Dela Cruz Size: 3 ET Tube Size: 8 Tube Placement Confirmation: visualized tube passing through cords, equal breath sounds bilaterally, no breath sounds over epigastrium, confirmation by capnometry Patient Tolerated Procedure: well, no complications Intubation Complications: none
[2017-11-09 04:52] LABS: Glucose,Whole Blood 202 mg/dL (75-99)
[2017-11-09 05:23] LABS: ABG HCO3 29 mmol/L (21-25); ABG Oxygen Saturation 94.4 % (94-97); ABG PCO2 44 mmHg (35-45); ABG PH 7.43 (7.35-7.45); ABG PO2 69 mmHg (83-108); ABG TCO2 31 mmol/L (19-24)
[2017-11-09 05:30] LABS: Albumin 3.9 g/dL (3.5-5.0); Calcium 8.8 mg/dL (8.4-10.2); Potassium 4.5 mmol/L (3.5-5.1); Total Bilirubin 0.8 mg/dL (0.2-1.3); Total Protein 6.3 g/dL (6.3-8.2)
[2017-11-09] MEDS: IPRATROPIUM-ALBUTEROL 3 ML NEB INHALATION SCH ×6 (05:40→23:17)
[2017-11-09 05:47] LABS: Magnesium 2.6 mg/dL (1.6-2.3); Phosphorus 5.7 mg/dL (2.5-4.5)
[2017-11-09 05:53] LABS: Troponin I 0.096 ng/mL (0.000-0.034)
[2017-11-09 06:23] LABS: Appearance,Urine Clear (Clear); Bilirubin,Urine Negative (Negative); Blood,Urine Negative (Negative); Color,Urine Colorless; Glucose,Urine (UA) Negative (Negative); Ketones,Urine Negative (Negative); Leukocyte Esterase,Urine Negative (Negative); Nitrite,Urine Negative (Negative); Protein,Urine Negative (Negative); Specific Gravity,Urine 1.006 (1.001-1.035); Urobilinogen,Urine <2.0 mg/dL (<2.0)
--- NOTE | 2017-11-09 07:11 | XR ---
EXAMINATION TYPE: XR chest 1V portable DATE OF EXAM: 11/09/2017 COMPARISON: 10/29/2017 HISTORY: Congestive heart failure. Shortness of breath. TECHNIQUE: Single frontal view of the chest is obtained. FINDINGS: There is increasing confluence of a right infrahilar opacity. The fenestrated portion of t he enteric tube is at the gastroesophageal junction. Recommendation is for advancement at least 2 cm. Endotracheal tube is appropriately placed near the aortic arch. Post CABG changes of the chest are n oted with cardiomegaly. There is improved degree of interstitial edema and pulmonary vascular congest ion, now mild. No sizable left pleural effusion. Trace right pleural effusion blunts the costophrenic angle. No discrete pneumothorax. Pulmonary hyperinflation likely relates underlying COPD. IMPRESSION: 1. Improving pulmonary vascular congestion and interstitial edema, now mild. 2. Increasing confluence of the right basilar opacity. Given the above improvement this focal airspac e disease may represent superimposed pneumonia.
[2017-11-09] MEDS: FUROSEMIDE 10 MG/ML 4 ML VIAL IV SCH ×3 (07:12→21:45)
--- NOTE | 2017-11-09 08:18 | CONS ---
CONSULTATION Mr. Duncan is a 72-year-old male who was recently discharged from the hospital was readmitted with symptoms of acute dyspnea. The patient has a known history of coronary artery disease, status post coronary artery bypass grafting in 2006, history of chronic tobacco use, peripheral vascular disease who has a history of obstructive lung disease, who presented to the hospital recently with symptoms of exacerbation of COPD and CHF on basis of diastolic dysfunction. He went home and according to the yesterday became quite dyspneic, unable to breathe in spite of using the oxygen. He had some cough without any changes unclear if it was productive. He had no fever. There was questionable of chest pain when he was dyspneic. He had no documented arrhythmia. The did not note any change in his peripheral edema. Because of that, he came into the emergency room in extreme respiratory distress and requiring mechanical ventilation. He is intubated and sedated at this time. His left ventricular systolic function by echocardiography was normal during his last admission. His coronary risk factors are remarkable for the history of smoking, hypertension, and hyperlipidemia. He is a nondiabetic. MEDICATION: His medications at home included aspirin, Lipitor 80 mg daily, Symbicort, budesonide, Lasix 40 mg daily, DuoNeb, Lopressor 50 mg twice a day, Norvasc 10 mg daily, hydralazine 50 mg 3 times a day, and prednisone. REVIEW OF SYSTEMS: Review of systems is obtained from the . RESPIRATORY SYSTEM: He has dyspnea on exertion. He has wheezing. He has cough and chronic obstructive lung disease and uses oxygen at home. GI SYSTEM: He had no recent nausea and vomiting. No GI bleeding. SYSTEM: He had no dysuria or hematuria. NERVOUS SYSTEM: No history of stroke or seizure. PHYSICAL EXAMINATION: This is a 72-year-old male intubated, sedated. Blood pressure 129/48 with the heart rate in the 70s. HEAD: Normocephalic. EYES: Sclerae anicteric. NECK: Transmitted murmur. LUNGS: Clear anteriorly. HEART: Regular rate and rhythm. S1, S2. No S3 with systolic murmur heard at the base, ejection type, 2/6. No diastolic murmur. ABDOMEN: Soft. Positive bowel sounds. No organomegaly. EXTREMITIES: +1 edema. LAB DATA: Lab data revealed a BUN creatinine 33 and 1.3, potassium 4.5. Troponin 0.098, 0.096. NT proBNP 3210. Potassium 4.5. The pH 7.24 after intubation with a pO2 338. Hemoglobin of 7.4, white blood cell of 15.5. Chest x-ray is consistent with congestive heart failure and pulmonary edema. EKG revealed a sinus mechanism with nonspecific ST-T wave changes and peak T-waves in the anterior wall that were noted in the past. IMPRESSION: 1. Respiratory failure with evidence of pulmonary edema, probably superimposed with no exacerbation of chronic obstructive pulmonary disease in a patient with severe chronic obstructive lung disease. 2. History of coronary artery disease, status post coronary artery bypass grafting. 3. Chronic tobacco use. 4. Hypertension. 5. Hyperlipidemia. RECOMMENDATION: Patient will be continued on intravenous diuresis at this time. His urine output has been good so far. Will follow his renal function. We will continue on the aspirin. I will re-initiate the treatment with the beta kandis. I will follow his blood pressure and depending on his progress, further recommendation will be made. I discussed those findings with the . Thank you for this consult. We will follow with you. AMERICAL / IJN: [id number] /
[2017-11-09] MEDS: ATORVASTATIN 80 MG TAB PO SCH (08:31)
[2017-11-09] MEDS: HEPARIN SODIUM,PORCINE 5,000 UNIT/ML 1 ML VIAL SQ SCH ×2 (08:31→16:32)
[2017-11-09] MEDS: PANTOPRAZOLE 40 MG/10 ML VIAL IV SCH (08:31)
[2017-11-09] MEDS: METOPROLOL TARTRATE 50 MG TAB PO SCH (08:31)
[2017-11-09] MEDS: CHLORHEXIDINE GLUCONATE 15 ML CUP MUCOUS MEM SCH ×2 (08:31→21:21)
[2017-11-09] MEDS: NITROGLYCERIN OINT 1 INCH/GM PACKET TOPICAL SCH ×3 (08:40→18:26)
--- NOTE | 2017-11-09 09:25 | P.CNPUL ---
History of Present Illness Consult date: 11/09/17 Requesting physician: Andre Stallings Reason for consult: dyspnea, chest pain, abnormal CXR/CT Chief complaint: Chest pain, dyspnea, pulmonary edema History of present illness: Mr. Duncan is a 72-year-old white male patient of Dr. Smiley, was brought in on 11/09/2017 for evaluation of severe respiratory distress, orthopnea, hypoxemic respiratory failure, chest pain. The onset of symptoms was in the evening, with progressive shortness of breath, after patient went to bed. She told his spouse he couldn't get enough air in, he was on oxygen and he requested his to turn up his oxygen to 6 L from 4 L. He then started complaining of severe substernal chest pain, spouse noted he was cyanotic, EMS was called, and patient was placed on BiPAP on the way to the hospital. In the emergency department patient was in severe distress, with impending respiratory failure, hypertensive with a blood pressure of 215/101. The decision was made to intubate the patient and place him on mechanical ventilator. Chest x-ray showed pulmonary interstitial and alveolar edema. EKG showed normal sinus rhythm with nonspecific STT wave changes. His labs showed a CBC of 15.5, hemoglobin of 7.4, potassium 5.2, BUN of 33, creatinine is 1.3, lactic acid of 1.5, troponin 0.098, proBNP was elevated at 3210. Blood gas showed pO2 of 338, pCO2 of 64, pH of 7.24, consistent with acute hypercapnic respiratory failure, and this was done on 100% FiO2 post intubation. Patient was recently hospitalized for acute exacerbation of diastolic congestive heart failure, and exacerbation of chronic obstructive pulmonary disease. Patient also developed right pleural effusion, and underwent right thoracentesis by Dr. De Paz on 10/27 with removal of 650 mL of serosanguineous pleural fluid. Pleural fluid cytology was negative for any cytologically malignant cells, and it was transudative in nature, secondary to congestive heart failure. Pleural fluid cultures revealed no growth. Patient was diuresed, clinically improved, he was discharged home in stable condition on home oxygen nebulized treatments and diuretics. During his last admission we try to qualify the patient for home BiPAP on the basis of his COPD, however his blood gas did not qualify him for it. There were questionable episodes of atrial fibrillation during last admission, patient is currently in sinus, not on any anticoagulation in view of previous history of bleeding gastric ulcers, and underlying anemia. Other medical history close coronary artery disease with previous coronary artery bypass grafting 3 in 2006, peripheral vascular disease with bilateral stent placements, hypertension, hyperlipidemia, osteoporosis, migraines, previous long -term smoking history. His maintenance inhalers include Symbicort and albuterol. He is currently sedated, on mechanical ventilator, on the Brovana at 45 mics per kilo per minute, he is receiving IV Lasix at 40 mg every 8 hours. His is at the bedside, and provided much of the history. Review of Systems All systems: negative Constitutional: Denies chills, Denies fever Eyes: denies blurred vision, denies pain Ears, nose, mouth and throat: Denies headache, Denies sore throat Cardiovascular: Reports dyspnea on exertion, Reports edema, Reports leg edema, Reports orthopnea, Denies chest pain, Denies shortness of breath Respiratory: Reports dyspnea, Denies cough Gastrointestinal: Denies abdominal pain, Denies diarrhea, Denies nausea, Denies vomiting Musculoskeletal: Denies myalgias Integumentary: Denies pruritus, Denies rash Neurological: Denies numbness, Denies weakness Psychiatric: Denies anxiety, Denies depression Endocrine: Denies fatigue, Denies weight change Past Medical History Past Medical History: Coronary Artery Disease (CAD), Chest Pain / Angina, Heart Failure, COPD, GERD/Reflux, GI Bleed, Hyperlipidemia, Hypertension, Myocardial Infarction ([place]), Osteoarthritis (OA), Pneumonia, Vascular Disorder Additional Past Medical History / Comment(s): Pneumonia/sepsis after appendectomy, chronic back pain, migraines, occ "heart fluttering", SOB with activity, PAD, hiatal hernia, gastric ulcer, lower GI bleed, colon polyp, hemorrhoids, bilateral tinnitis, past elbow/rib fractures. Last Myocardial Infarction Date:: 2006 History of Any Multi-Drug Resistant Organisms: None Reported Past Surgical History: Appendectomy, Coronary Bypass/CABG, Heart Catheterization With Stent Additional Past Surgical History / Comment(s): 07/2017 EGD/COLONOSCOPY WITH POLYPECTOMY, TRIPLE CABG 2006. PCI/STENT IN 2000. STENTS PAT LEGS. EXC bilat CATARACT 05/25/17. PAIN CLINIC PROCEDURES Past Anesthesia/Blood Transfusion Reactions: No Reported Reaction Date of Last Stent Placement:: 2000 Past Psychological History: No Psychological Hx Reported Additional Psychological History / Comment(s): Pt resides with his spouse. He uses a cane to ambulate. He drives. 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 Past Drug Use History: None Reported - Past Family History Mother Family Medical History: Cancer, Osteoarthritis (OA) Medications and Allergies Home Medications Medication Instructions Recorded Confirmed Type Atorvastatin [Lipitor] 80 mg PO DAILY 12/25/13 11/09/17 History Hydrocodone/Acetaminophen 1 tab PO Q6HR PRN 12/25/13 11/09/17 History [Hydrocodone/Acetaminophen 10-325] Metoprolol Tartrate [Lopressor] 50 mg PO BID 12/25/13 11/09/17 History hydrALAZINE HCL [Apresoline] 50 mg PO TID 12/25/13 11/09/17 History Aspirin [Adult Low Dose Aspirin EC] 81 mg PO QAM 05/19/17 11/09/17 History Albuterol Inhaler [Ventolin Hfa 1 - 2 puff INHALATION RT-Q6H PRN 10/31/17 Rx Inhaler] #1 inhaler Budesonide-Formot 160-4.5 Mcg 2 puff INHALATION BID #1 inhaler 10/31/17 Rx [Symbicort 160-4.5 Mcg Inhaler] Ferrous Sulfate [Iron (65 MG 325 mg PO BID-W/MEALS #60 tab 10/31/17 11/09/17 Rx Elemental)] Furosemide [Lasix] 40 mg PO DAILY #30 tab 10/31/17 11/09/17 Rx Pantoprazole [Protonix] 40 mg PO AC-BID #60 tablet. 10/31/17 11/09/17 Rx amLODIPine [Norvasc] 10 mg PO DAILY #60 tab 10/31/17 11/09/17 Rx predniSONE 10 mg PO DAILY 9 Days #18 tab 10/31/17 11/09/17 Rx Ipratropium-Albuterol Nebulize 3 ml INHALATION RT-Q6H 11/09/17 11/09/17 History [Duoneb 0.5 mg-3 mg/3 ml Soln] Allergies Allergy/AdvReac Type Severity Reaction Status Date / Time No Known Allergies Allergy Verified 10/26/17 07:38 Physical Exam Vitals: Vital Signs Temp Pulse Resp BP Pulse Ox 11/09/17 08:00 97.7 F 74 18 123/50 99 11/09/17 07:45 74 11/09/17 07:30 78 17 116/45 11/09/17 07:00 72 18 129/48 98 11/09/17 06:30 71 139/51 11/09/17 06:00 70 145/57 97 11/09/17 05:50 70 149/62 98 11/09/17 05:40 70 149/62 98 11/09/17 05:33 97.0 F L 73 23 149/62 97 11/09/17 04:30 70 26 H 100/72 100 11/09/17 04:15 70 173/75 100 11/09/17 04:04 75 11/09/17 04:00 74 182/74 99 11/09/17 03:59 74 11/09/17 03:40 73 26 H 183/70 99 11/09/17 03:00 74 18 150/67 100 11/09/17 02:58 73 27 H 166/72 100 11/09/17 02:49 72 28 H 147/68 99 11/09/17 02:45 72 147/68 100 11/09/17 02:43 75 27 H 168/70 11/09/17 02:30 72 26 H 147/68 100 11/09/17 02:27 79 27 H 225/91 99 11/09/17 02:15 82 27 H 201/91 100 11/09/17 02:07 97.0 F L 98 28 H 188/78 100 11/09/17 02:05 97 11/09/17 02:03 56 H 11/09/17 01:57 97 215/101 93 L Intake and Output 11/08/17 11/09/17 11/09/17 22:59 06:59 14:59 Intake Total 51.783 20 Output Total 525 665 Balance -473.217 -645 Intake: IV 20 20 0.9 @ 10/hr 20 20 Intake, IV Titration 31.783 Amount Propofol 1,000 mg In 31.783 Empty Bag 1 bag @ Titrate IV .Q0M [facility] Rx#: [id number] Output: Urine 525 665 Uretheral (Reynoso) 300 300 Other: Voiding Method Indwelling Catheter Weight 62.5 kg 62.5 kg GENERAL EXAM: 72-year-old white male, sedated, on mechanical ventilator HEAD: Normocephalic/atraumatic. EYES: Normal reaction of pupils, equal size. Conjunctiva pink, sclera white. NOSE: Clear with pink turbinates. THROAT: No erythema or exudates. NECK: No masses, no JVD, no thyroid enlargement, no adenopathy. CHEST: No chest wall deformity. Symmetrical expansion. LUNGS: Equal air entry with no crackles, wheeze, rhonchi or dullness. CVS: Regular rate and rhythm, normal S1 and S2, no gallops, no murmurs, no rubs ABDOMEN: Soft, nontender. No hepatosplenomegaly, normal bowel sounds, no guarding or rigidity. EXTREMITIES: No clubbing, no cyanosis, 2+ pulses and upper and lower extremities. 1+ pedal edema MUSCULOSKELETAL: Muscle strength and tone normal. SPINE: No scoliosis or deformity SKIN: No rashes CENTRAL NERVOUS SYSTEM: Sedated. No focal deficits, tone is normal in all 4 extremities. PSYCHIATRIC: Sedated. Results - Laboratory Findings CBC and BMP: 11/09/17 02:10 11/09/17 05:05 ABG ABG pH 7.43 (7.35-7.45) 11/09/17 05:13 ABG pCO2 44 mmHg (35-45) 11/09/17 05:13 ABG pO2 69 mmHg (83-108) L 11/09/17 05:13 ABG O2 Saturation 94.4 % (94-97) 11/09/17 05:13 PT/INR, D-dimer PT 9.4 sec (9.0-12.0) 11/09/17 02:10 INR 0.9 (<1.2) 11/09/17 02:10 Abnormal lab findings: Abnormal Labs 11/09/17 11/09/17 11/09/17 02:03 02:10 02:10 WBC 15.5 H RBC 2.88 L Hgb 7.4 L Hct 24.8 L MCHC 29.8 L RDW 19.4 H Neutrophils # 11.7 H APTT ABG pH ABG pCO2 ABG pO2 ABG HCO3 ABG Total CO2 ABG O2 Saturation Potassium BUN Creatinine Glucose POC Glucose (mg/dL) 179 H Phosphorus Magnesium Total Creatine Kinase 43 L Troponin I 0.098 H* Total Protein 11/09/17 11/09/17 11/09/17 02:10 02:10 02:40 WBC RBC Hgb Hct MCHC RDW Neutrophils # APTT 19.4 L ABG pH 7.24 L ABG pCO2 64 H ABG pO2 338 H ABG HCO3 28 H ABG Total CO2 30 H ABG O2 Saturation 100.0 H Potassium 5.2 H BUN 33 H Creatinine 1.30 H Glucose 176 H POC Glucose (mg/dL) Phosphorus Magnesium Total Creatine Kinase Troponin I Total Protein 6.2 L 11/09/17 11/09/17 11/09/17 04:50 05:05 05:05 WBC RBC Hgb Hct MCHC RDW Neutrophils # APTT ABG pH ABG pCO2 ABG pO2 ABG HCO3 ABG Total CO2 ABG O2 Saturation Potassium BUN 33 H Creatinine 1.30 H Glucose 171 H POC Glucose (mg/dL) 202 H Phosphorus Magnesium Total Creatine Kinase Troponin I 0.096 H* Total Protein 11/09/17 11/09/17 05:05 05:13 WBC RBC Hgb Hct MCHC RDW Neutrophils # APTT ABG pH ABG pCO2 ABG pO2 69 L ABG HCO3 29 H ABG Total CO2 31 H ABG O2 Saturation Potassium BUN Creatinine Glucose POC Glucose (mg/dL) Phosphorus 5.7 H Magnesium 2.6 H Total Creatine Kinase Troponin I Total Protein - Diagnostic Findings Chest x-ray: report reviewed, image reviewed Additional studies: EKG reviewed Assessment and Plan Plan: Assessment: #1. Acute hypoxemic and hypercapnic respiratory failure secondary to acute exacerbation of congestive heart failure, with previously diastolic dysfunction #2. Recent hospitalization for acute exacerbation of COPD, and diastolic congestive heart failure. Patient had right thoracentesis with removal of 650 mL of transudative pleural fluid, and microbiology were negative #3. Elevated troponins #4. Acute kidney injury #5. History of coronary artery disease with previous coronary artery bypass grafting #6. Peripheral vascular disease with bilateral stents to the lower extremities #7. Anemia #8. Hypertension #9. Hyperlipidemia #10. Leukocytosis, which is actually improved from last admission possibly steroid related Plan: Continue IV diuretics, continue neighbors bronchodilators, admission and today' s chest x-ray were reviewed, as his chest x-ray shows improving pulmonary vascular congestion and interstitial edema. Patient remains in sinus rhythm, no episodes of atrial fibrillation noted. Patient has been seen by cardiology. Continue GI and DVT prophylaxis, beta blockers, no significant wheezing, no need for steroids right now. Blood, urine and sputum were collected and sent, and are pending at this time. The spouse was updated on patient's condition, continue mechanical vent support today. Repeat chest x-ray in the morning, continue close hemodynamic monitoring, urine output, fluid balance. Labs, electrolytes, renal profile. We'll continue to closely follow I performed a history & physical examination of the patient and discussed their management with my nurse practitioner, Saray Galarza. I reviewed the nurse practitioner's note and agree with the documented findings and plan of care. Lung sounds are clear. The findings and the impression was discussed with the patient. I attest to the documentation by the nurse practitioner. Time with Patient: Greater than 30
[2017-11-09] MEDS ORDERED: LEVOFLOXACIN 500MG-D5W PMX 500 MG in DEXTROSE/WATER 1 100ML.BAG IVPB SCH (11:00)
[2017-11-09] MEDS: CEFEPIME 1 GM in SODIUM CHLORIDE 0.9% 50 ML IVPB SCH ×2 (11:46→21:20)
--- NOTE | 2017-11-09 16:57 | HP ---
HISTORY AND PHYSICAL DATE OF ADMISSION: 11/09/2017 PRESENTING COMPLAINT: Short of breath. HISTORY OF PRESENTING COMPLAINT: This is a 72-year-old patient who follows with Dr. Smiley. The patient was seen recently by my colleagues from [facility] and discharged on 10/31/2017. Last admission patient had right-sided thoracentesis; 650 mL was taken off. Patient was treated for CHF exacerbation and COPD exacerbation. Patient per notes has continued to smoke cigars. EMS was called, as the patient was short of breath, and went into respiratory distress in the ER and had to be intubated. He is now admitted to the ICU on the ventilator. Patient is on Diprivan. Patient is being treated for CHF exacerbation, put on IV Lasix. The patient's other chronic stable medical conditions include GERD, hyperlipidemia, osteoarthritis, hiatal hernia, tinnitus, peripheral artery disease, coronary artery disease and chronic kidney disease. Review of systems could not be done, even though I tried to with the nurse, ER notes. No family is present right now. It may be noted that at baseline patient is able to ambulate, has got chronic ringing in the ears, arthritic pain in the joints, short of breath and chronic low back pain. PAST MEDICAL HISTORY: 1. Coronary artery disease. 2. Congestive heart failure from diastolic dysfunction, EF 55%. 3. COPD. 4. GERD. 5. Hyperlipidemia. 6. Hypertension. 7. Osteoarthritis. 8. Chronic low back pain. 9. Migraines. 10.Peripheral artery disease. 11.Hiatal hernia. 12.Gastric ulcer. 13.Colon polyp. 14.Hemorrhoids. 15.Tinnitus. PAST SURGICAL HISTORY: 1. Appendectomy. 2. Coronary artery bypass. 3. Cardiac cath with stent. 4. EGD. 5. Colonoscopy. 6. Polypectomy. 7. Triple bypass in 2006. 8. Stent in 2000. 9. Stents to both lower extremities. 10.Bilateral cataracts removed. SOCIAL HISTORY: . Normally uses a cane to get about. Patient drives. The patient has been smoking for close to 60 years. Did smoke cigarettes before; now switched to cigars. FAMILY HISTORY: Cancer and osteoarthritis. HOME MEDICATIONS: 1. Prednisone 10 mg a day. 2. Hydralazine 50 mg t.i.d. 3. Norvasc 10 mg a day. 4. Protonix 40 mg b.i.d. 5. Lopressor 50 mg b.i.d. 6. DuoNeb q.6. 7. [place] 10 one tablet q.6 p.r.n. 8. Lasix 40 mg a day. 9. Iron 325 with meals. 10.Symbicort 160/4.5 two puffs b.i.d. 11.Lipitor 80 mg a day. 12.Aspirin 81 mg a day. 13.Ventolin HFA 1-2 puffs q.6 p.r.n. ALLERGIES: NONE. PHYSICAL EXAMINATION: VITAL SIGNS ON PRESENTATION: Temperature 97, pulse 73, respiration 23, blood pressure 129/62, pulse ox 97% on the ventilator with FiO2 of 40 and a PEEP of 5. GENERAL APPEARANCE: Average build. Lying in bed, intubated. EYES: Pupils equal. Conjunctivae normal. HEENT: External appearance of nose and ears normal. Oral cavity with endotracheal tube in place. NECK: JVD unable to assess. Mass not palpable. RESPIRATORY: Effort increased. LUNGS: Diminished breath sounds. CARDIOVASCULAR: First and second sounds normal. Minimal edema. ABDOMEN: Soft, nontender. Liver and spleen not palpable. LYMPHATIC: No lymph node palpable in neck or axillae. PSYCHIATRY: Unable to assess. Patient is intubated. NEUROLOGICAL: Pupils equal. No facial asymmetry. Plantars equivocal. INVESTIGATIONS: White count 15.5, hemoglobin 7.4. Potassium 5.2, BUN 33, creatinine 1.30. BUN and creatinine were 59 and 1.35 on 10/31/2017. Troponin 0.098. EKG tracing reviewed by me shows peaked T-waves with nonspecific ST-segment changes. Chest x-ray film interpreted by me shows pulmonary edema. ASSESSMENT: 1. Acute on chronic congestive heart failure exacerbation from diastolic dysfunction; recent ejection fraction shown to be 55% to 60%. 2. Moderate mitral regurgitation, non-rheumatic. 3. Coronary artery disease with prior history of stent and bypass. 4. Gastroesophageal reflux disease. 5. Hyperlipidemia. 6. Primary osteoarthritis. 7. Peripheral arterial disease. 8. Hiatal hernia. 9. Chronic tinnitus. 10.Chronic kidney disease, stage III, from nephrosclerosis. 11.Possible pneumonia; could be aspiration. PLAN: Patient is on cefepime and Levaquin. Home medications are resumed. The patient is also getting IV Lasix. The patient was seen by Critical Care and Cardiology. No family is present at the bedside. MMODL / IJN: [id number] /
[2017-11-09] MEDS: FORMOTEROL FUMARATE 20 MCG/2 ML NEBU INHALATION SCH (19:45)
[2017-11-09] MEDS: BUDESONIDE 1 MG/2 ML NEBU INHALATION SCH (19:45)
--- NOTE | 2017-11-10 01:03 | XR ---
EXAMINATION TYPE: XR chest 1V portable DATE OF EXAM: 11/10/2017 COMPARISON: Yesterday HISTORY: Check tube placement TECHNIQUE: Single frontal view of the chest is obtained. FINDINGS: There is nasogastric tube that has the tip probably in the gastric fundus. Endotracheal tu be is 6 cm from the damian. There is mild pulmonary congestion. There is slight blunting of the costo phrenic angles. There are chest leads. Trachea is midline. There are sternal wires. IMPRESSION: Mild congestive heart failure appears improved slightly compared to yesterday.
[2017-11-10] MEDS: HEPARIN SODIUM,PORCINE 5,000 UNIT/ML 1 ML VIAL SQ SCH ×3 (01:05→16:39)
[2017-11-10] MEDS: NITROGLYCERIN OINT 1 INCH/GM PACKET TOPICAL SCH ×4 (01:05→18:42)
[2017-11-10] MEDS: PROPOFOL 1,000 MG in EMPTY BAG 1 BAG IV SCH ×2 (01:05→05:08)
[2017-11-10] MEDS: METOPROLOL TARTRATE 50 MG TAB PO SCH ×3 (01:12→20:48)
[2017-11-10] MEDS: IPRATROPIUM-ALBUTEROL 3 ML NEB INHALATION SCH ×5 (02:47→20:19)
[2017-11-10 04:30] LABS: ABG Base Excess 9.2 mmol/L; ABG HCO3 32 mmol/L (21-25); ABG Oxygen Saturation 96.7 % (94-97); ABG PCO2 40 mmHg (35-45); ABG PH 7.51 (7.35-7.45); ABG PO2 77 mmHg (83-108); ABG TCO2 33 mmol/L (19-24)
[2017-11-10 05:11] LABS: Anisocytosis Slight; Basophils % (A) 0 %; Eosinophils % (A) 0 %; HCT 21.6 % (39.0-53.0); Hypochromasia Marked; Lymphocytes % (A) 7 %; MCH 27.5 pg (25.0-35.0); MCHC 32.1 g/dL (31.0-37.0); MCV 85.7 fL (80.0-100.0); Mean Platelet Volume 6.7; Monocytes # (A) 0.7 k/uL (0-1.0); Monocytes % (A) 6 %; Neutrophils # (A) 11.3 k/uL (1.3-7.7); Neutrophils % (A) 86 %; Platelet Count 219 k/uL (150-450); Poikilocytosis Slight; RBC 2.52 m/uL (4.30-5.90); RDW 19.9 % (11.5-15.5); WBC 13.2 k/uL (3.8-10.6)
[2017-11-10 05:13] LABS: HGB 6.9 gm/dL (13.0-17.5)
[2017-11-10 05:14] LABS: Calcium 8.4 mg/dL (8.4-10.2); Magnesium 2.5 mg/dL (1.6-2.3); Phosphorus 6.3 mg/dL (2.5-4.5)
[2017-11-10] MEDS: FUROSEMIDE 10 MG/ML 4 ML VIAL IV SCH ×2 (05:30→08:19)
[2017-11-10] MEDS: FORMOTEROL FUMARATE 20 MCG/2 ML NEBU INHALATION SCH ×2 (07:36→20:19)
[2017-11-10] MEDS: BUDESONIDE 1 MG/2 ML NEBU INHALATION SCH ×2 (07:36→20:19)
[2017-11-10] MEDS: ATORVASTATIN 80 MG TAB PO SCH (08:03)
[2017-11-10] MEDS: ASPIRIN 81 MG PO SCH (08:03)
[2017-11-10] MEDS: CHLORHEXIDINE GLUCONATE 15 ML CUP MUCOUS MEM SCH (08:04)
[2017-11-10] MEDS: PANTOPRAZOLE 40 MG/10 ML VIAL IV SCH (08:19)
--- NOTE | 2017-11-10 08:46 | PN ---
PROGRESS NOTE Mr. Duncan is a 72-year-old male who presented with respiratory failure requiring mechanical ventilation with a combination of exacerbation of COPD and CHF. He is intubated, receiving transfusion because of a low hemoglobin. He is in sinus mechanism, on no pressors. His urine output has been stable. He has no evidence of tachy or bradyarrhythmia. He continues to be on Lasix 40 mg IV q.8 hours, aspirin once a day, Lipitor 80 mg daily, nitro paste 1 inch q.6 hours, and metoprolol tartrate 50 mg twice a day. PHYSICAL EXAMINATION: Blood pressure running in the 120s to 130s with a heart rate in the 80s. LUNGS: Clear anteriorly. HEART: Regular rate and rhythm. S1, S2. No S3. No rub appreciated. ABDOMEN: Soft. Positive bowel sounds. EXTREMITIES: No edema. LAB DATA: His hemoglobin is down to 6.9. His pH is 7.51 with a pO2 of 77 and pCO2 of 40. His BUN and creatinine 38 and 1.5, potassium 4.0. The chest x-ray shows improvement in the congestion. IMPRESSION: 1. Respiratory failure related to a combination of exacerbation of chronic obstructive pulmonary disease and congestive heart failure. 2. History of coronary artery disease, status post coronary artery bypass grafting. 3. Chronic tobacco use. 4. Anemia. 5. History of hypertension. 6. Hyperlipidemia. RECOMMENDATION: From the cardiac standpoint, I will cut down on the dose of his diuretics. Follow his renal function. I am hopeful that we can start to wean him off and extubate him soon. Will follow his renal function and depending on his progress, further recommendation will be made. MMODL / IJN: [id number] /
[2017-11-10] MEDS: CEFEPIME 1 GM in SODIUM CHLORIDE 0.9% 50 ML IVPB SCH ×2 (08:49→20:48)
[2017-11-10] MEDS ORDERED: ASPIRIN 325 MG TAB PO SCH (09:00)
--- NOTE | 2017-11-10 09:09 | P.PN ---
<Saray Galarza M - Last Filed: 11/10/17 09:01> Subjective Progress Note Date: 11/10/17 Principal diagnosis: Acute hypoxemic and hypercapnic respiratory failure secondary to acute exacerbation of diastolic CHF, and a possibility of right lower lobe pneumonia, healthcare acquired. Mr. Duncan is a 72-year-old white male patient of Dr. Smiley, was brought in on 11/09/2017 for evaluation of severe respiratory distress, orthopnea, hypoxemic respiratory failure, chest pain. The onset of symptoms was in the evening, with progressive shortness of breath, after patient went to bed. She told his spouse he couldn't get enough air in, he was on oxygen and he requested his to turn up his oxygen to 6 L from 4 L. He then started complaining of severe substernal chest pain, spouse noted he was cyanotic, EMS was called, and patient was placed on BiPAP on the way to the hospital. In the emergency department patient was in severe distress, with impending respiratory failure, hypertensive with a blood pressure of 215/101. The decision was made to intubate the patient and place him on mechanical ventilator. Chest x-ray showed pulmonary interstitial and alveolar edema. EKG showed normal sinus rhythm with nonspecific STT wave changes. His labs showed a CBC of 15.5, hemoglobin of 7.4, potassium 5.2, BUN of 33, creatinine is 1.3, lactic acid of 1.5, troponin 0.098, proBNP was elevated at 3210. Blood gas showed pO2 of 338, pCO2 of 64, pH of 7.24, consistent with acute hypercapnic respiratory failure, and this was done on 100% FiO2 post intubation. Patient was recently hospitalized for acute exacerbation of diastolic congestive heart failure, and exacerbation of chronic obstructive pulmonary disease. Patient also developed right pleural effusion, and underwent right thoracentesis by Dr. De Paz on 10/27 with removal of 650 mL of serosanguineous pleural fluid. Pleural fluid cytology was negative for any cytologically malignant cells, and it was transudative in nature, secondary to congestive heart failure. Pleural fluid cultures revealed no growth. Patient was diuresed, clinically improved, he was discharged home in stable condition on home oxygen nebulized treatments and diuretics. During his last admission we try to qualify the patient for home BiPAP on the basis of his COPD, however his blood gas did not qualify him for it. There were questionable episodes of atrial fibrillation during last admission, patient is currently in sinus, not on any anticoagulation in view of previous history of bleeding gastric ulcers, and underlying anemia. Other medical history close coronary artery disease with previous coronary artery bypass grafting 3 in 2006, peripheral vascular disease with bilateral stent placements, hypertension, hyperlipidemia, osteoporosis, migraines, previous long -term smoking history. His maintenance inhalers include Symbicort and albuterol. He is currently sedated, on mechanical ventilator, on the Brovana at 45 mics per kilo per minute, he is receiving IV Lasix at 40 mg every 8 hours. His is at the bedside, and provided much of the history. On 11/10/2017 patient seen in follow-up in intensive care unit. He is sedated, remains on mechanical ventilator, on assist-control mode ventilation, with a rate of 18, tida volume of 500, FiO2 40% and PEEP of 5. His Diprivan and has been off for about an hour, patient remains very lethargic, today's hemoglobin is 6.9, and the patient is receiving a unit of blood, no obvious source of bleeding, he does have underlying chronic anemia, slight decreased from yesterday's hemoglobin from 7.4. Hemoynamically stable, not on any vasopressor support, 0.9 at a rate of 10 ML per hour, no other drips. Today's chest x-ray has been reviewed and shows mild pulmonary congestion, slight blunting of the costophrenic angles, and improving right lower lobe infiltrate. Patient has been diuresed, and he is in negative 3900 net fluid balance over the last 24 hours. Bilateral lower extremity edema has improved, his weight is trending down. Lung sounds are clear to auscultation, and his rhythm on the monitor, there has not been any atrial fibrillation episodes this admission. Blood gases showed pO2 of 77, pCO2 of 40, and pH of 7.51, patient is developing mild degree of metabolic alkalosis, his creatinine has increased, to 1.5, and cardiology has adjusted his diuretics to once daily. His is at the bedside , updated on his condition Objective - Vital Signs Vital signs: Vital Signs Temp 98.5 F 11/10/17 08:00 Pulse 86 11/10/17 08:17 Resp 18 11/10/17 08:00 BP 126/57 08/02/18 08:00 Pulse Ox 97 11/10/17 07:30 Intake & Output 11/09/17 11/10/17 11/10/17 18:59 06:59 18:59 Intake Total 338.217 249.417 71.100 Output Total 2686 1805 225 Balance -2347.783 -1555.583 -153.900 Weight 62.5 kg 59.2 kg Intake: IV 120 180 10 0.9 @ 10/hr 120 130 10 Cefepime 1 gm In Sodium 50 Chloride 0.9% 50 ml @ 100 mls/hr IVPB Q12HR [facility] Rx #:[id number] Intake, IV Titration 218.217 69.417 61.100 Amount Cefepime 1 gm In Sodium 50 Chloride 0.9% 50 ml @ 100 mls/hr IVPB Q12HR [facility] Rx #:[id number] Levofloxacin 500Mg-D5w 100 Pmx 500 mg In Dextrose/ Water 1 100ml.bag @ 100 mls/hr IVPB Q24H [facility] Rx#: [id number] Propofol 1,000 mg In 68.217 69.417 61.100 Empty Bag 1 bag @ Titrate IV .Q0M [facility] Rx#: [id number] Blood Product 0 Rc As-1 Unit 0 [id number] Output: Urine 2686 1805 225 Other: Voiding Method Indwelling Catheter Indwelling Catheter - Exam GENERAL EXAM: 72-year-old white male, sedated, on mechanical ventilator HEAD: Normocephalic/atraumatic. EYES: Normal reaction of pupils, equal size. Conjunctiva pink, sclera white. NOSE: Clear with pink turbinates. THROAT: No erythema or exudates. NECK: No masses, no JVD, no thyroid enlargement, no adenopathy. CHEST: No chest wall deformity. Symmetrical expansion. LUNGS: Equal air entry with no crackles, wheeze, rhonchi or dullness. CVS: Regular rate and rhythm, normal S1 and S2, no gallops, no murmurs, no rubs ABDOMEN: Soft, nontender. No hepatosplenomegaly, normal bowel sounds, no guarding or rigidity. EXTREMITIES: No clubbing, no cyanosis, 2+ pulses and upper and lower extremities. 1+ pedal edema MUSCULOSKELETAL: Muscle strength and tone normal. SPINE: No scoliosis or deformity SKIN: No rashes CENTRAL NERVOUS SYSTEM: Sedated. No focal deficits, tone is normal in all 4 extremities. PSYCHIATRIC: Sedated. - Labs CBC & Chem 7: 11/10/17 04:41 11/10/17 04:41 Labs: Abnormal Lab Results - Last 24 Hours (Table) 11/09/17 11/10/17 11/10/17 Range/Units 11:00 04:28 04:41 WBC 13.2 H (3.8-10.6) k/uL RBC 2.52 L (4.30-5.90) m/uL Hgb 6.9 L* (13.0-17.5) gm/dL Hct 21.6 L (39.0-53.0) % RDW 19.9 H (11.5-15.5) % Neutrophils # 11.3 H (1.3-7.7) k/uL ABG pH 7.51 H (7.35-7.45) ABG pO2 77 L (83-108) mmHg ABG HCO3 32 H (21-25) mmol/L ABG Total CO2 33 H (19-24) mmol/L Carbon Dioxide (22-30) mmol/L BUN (9-20) mg/dL Creatinine (0.66-1.25) mg/dL Glucose (74-99) mg/dL Phosphorus (2.5-4.5) mg/dL Magnesium (1.6-2.3) mg/dL Troponin I 0.074 H* (0.000-0.034) ng/mL Crossmatch 11/10/17 11/10/17 Range/Units 04:41 05:44 WBC (3.8-10.6) k/uL RBC (4.30-5.90) m/uL Hgb (13.0-17.5) gm/dL Hct (39.0-53.0) % RDW (11.5-15.5) % Neutrophils # (1.3-7.7) k/uL ABG pH (7.35-7.45) ABG pO2 (83-108) mmHg ABG HCO3 (21-25) mmol/L ABG Total CO2 (19-24) mmol/L Carbon Dioxide 31 H (22-30) mmol/L BUN 38 H (9-20) mg/dL Creatinine 1.50 H (0.66-1.25) mg/dL Glucose 116 H (74-99) mg/dL Phosphorus 6.3 H (2.5-4.5) mg/dL Magnesium 2.5 H (1.6-2.3) mg/dL Troponin I (0.000-0.034) ng/mL Crossmatch See Detail Microbiology - Last 24 Hours (Table) 11/09/17 05:05 Blood Culture - Preliminary Blood No Growth after 24 hours 11/09/17 02:30 Gram Stain - Preliminary Sputum Sputum Culture - Preliminary 11/09/17 06:00 Urine Culture - Preliminary Urine,Catheterized Assessment and Plan Plan: Assessment: #1. Acute hypoxemic and hypercapnic respiratory failure secondary to acute exacerbation of congestive heart failure, with previously diastolic dysfunction and the possibility of right lower lobe infiltrate, potentially healthcare acquired pneumonia #2. Recent hospitalization for acute exacerbation of COPD, and diastolic congestive heart failure. Patient had right thoracentesis with removal of 650 mL of transudative pleural fluid, and microbiology were negative #3. Elevated troponins #4. Acute kidney injury #5. History of coronary artery disease with previous coronary artery bypass grafting #6. Peripheral vascular disease with bilateral stents to the lower extremities #7. Anemia #8. Hypertension #9. Hyperlipidemia #10. Leukocytosis, which is actually improved from last admission possibly steroid related Plan: Today's chest x-ray has been reviewed, shows improvement in the appearance of pulmonary congestion, and right lower lobe infiltrate. Patient is developing mild volume contraction alkalosis, and has cardiology cut down his IV diuretics to once daily. Patient is receiving a unit of blood, no source of bleeding. Remains hemodynamically stable, he is in negative fluid balance, oxygenation is stable on FiO2 of 40%. We will give the patient daily introduction of sedation , and proceed with spontaneous breathing trials, with CPAP of 5 and pressure- support 5, with a goal of extubation. We'll continue to follow, continue current antibiotic coverage, though so far cultures show no growth. Continue GI and DVT prophylaxis. I performed a history & physical examination of the patient and discussed their management with my nurse practitioner, Saray Galarza. I reviewed the nurse practitioner's note and agree with the documented findings and plan of care. Lung sounds are clear. The findings and the impression was discussed with the patient. I attest to the documentation by the nurse practitioner. Time with Patient: Greater than 30 <Ray Denson - Last Filed: 11/10/17 09:24> Objective - Vital Signs Vital signs: Vital Signs Temp 98.4 F 11/10/17 09:12 Pulse 86 11/10/17 09:12 Resp 18 11/10/17 09:12 BP 141/58 11/10/17 09:12 Pulse Ox 99 11/10/17 09:12 Intake & Output 11/09/17 11/10/17 11/10/17 18:59 06:59 18:59 Intake Total 338.217 249.417 131.100 Output Total 2686 1805 600 Balance -2347.783 -1555.583 -468.900 Weight 62.5 kg 59.2 kg Intake: IV 120 180 70 0.9 @ 10/hr 120 130 20 Cefepime 1 gm In Sodium 50 50 Chloride 0.9% 50 ml @ 100 mls/hr IVPB Q12HR [facility] Rx #:[id number] Intake, IV Titration 218.217 69.417 61.100 Amount Cefepime 1 gm In Sodium 50 Chloride 0.9% 50 ml @ 100 mls/hr IVPB Q12HR [facility] Rx #:[id number] Levofloxacin 500Mg-D5w 100 Pmx 500 mg In Dextrose/ Water 1 100ml.bag @ 100 mls/hr IVPB Q24H [facility] Rx#: [id number] Propofol 1,000 mg In 68.217 69.417 61.100 Empty Bag 1 bag @ Titrate IV .Q0M [facility] Rx#: [id number] Blood Product 0 Rc As-1 Unit 0 [id number] Output: Urine 2686 1805 600 Other: Voiding Method Indwelling Catheter Indwelling Catheter Indwelling Catheter - Labs CBC & Chem 7: 11/10/17 04:41 11/10/17 04:41 Labs: Abnormal Lab Results - Last 24 Hours (Table) 11/09/17 11/10/17 11/10/17 Range/Units 11:00 04:28 04:41 WBC 13.2 H (3.8-10.6) k/uL RBC 2.52 L (4.30-5.90) m/uL Hgb 6.9 L* (13.0-17.5) gm/dL Hct 21.6 L (39.0-53.0) % RDW 19.9 H (11.5-15.5) % Neutrophils # 11.3 H (1.3-7.7) k/uL ABG pH 7.51 H (7.35-7.45) ABG pO2 77 L (83-108) mmHg ABG HCO3 32 H (21-25) mmol/L ABG Total CO2 33 H (19-24) mmol/L Carbon Dioxide (22-30) mmol/L BUN (9-20) mg/dL Creatinine (0.66-1.25) mg/dL Glucose (74-99) mg/dL Phosphorus (2.5-4.5) mg/dL Magnesium (1.6-2.3) mg/dL Troponin I 0.074 H* (0.000-0.034) ng/mL Crossmatch 11/10/17 11/10/17 Range/Units 04:41 05:44 WBC (3.8-10.6) k/uL RBC (4.30-5.90) m/uL Hgb (13.0-17.5) gm/dL Hct (39.0-53.0) % RDW (11.5-15.5) % Neutrophils # (1.3-7.7) k/uL ABG pH (7.35-7.45) ABG pO2 (83-108) mmHg ABG HCO3 (21-25) mmol/L ABG Total CO2 (19-24) mmol/L Carbon Dioxide 31 H (22-30) mmol/L BUN 38 H (9-20) mg/dL Creatinine 1.50 H (0.66-1.25) mg/dL Glucose 116 H (74-99) mg/dL Phosphorus 6.3 H (2.5-4.5) mg/dL Magnesium 2.5 H (1.6-2.3) mg/dL Troponin I (0.000-0.034) ng/mL Crossmatch See Detail Microbiology - Last 24 Hours (Table) 11/09/17 05:05 Blood Culture - Preliminary Blood No Growth after 24 hours 11/09/17 02:30 Gram Stain - Preliminary Sputum Sputum Culture - Preliminary 11/09/17 06:00 Urine Culture - Preliminary Urine,Catheterized Assessment and Plan Plan: This is a joint evaluation that was done along with a nurse practitioner. The patient is currently in the process of getting a spontaneous breathing trial with a pressure support of 5 and a PEEP of 5. Weaning parameters were checked and they were appropriate. The patient was taken off sedation. The patient was given a unit of packed RBC regarding a hemoglobin of 6.9. The patient is on Lasix and he is in a negative fluid balance of -4 L over the past 24 hours. Chest x-ray shows improvement in the volume status and there is some residual right lower lobe infiltration and pneumonia cannot be completely excluded. Possible extubation today. Case was discussed with cardiology. Case was discussed with the at the bedside. This is a critically care evaluation. Further recommendations are to follow regarding potential extubation based on his progress. Evaluation was done in 35 minutes. Time with Patient: Greater than 30
[2017-11-10 09:45] LABS: ABG Base Excess 11.2 mmol/L; ABG HCO3 34 mmol/L (21-25); ABG Oxygen Saturation 96.9 % (94-97); ABG PCO2 39 mmHg (35-45); ABG PH 7.55 (7.35-7.45); ABG PO2 75 mmHg (83-108); ABG TCO2 35 mmol/L (19-24)
[2017-11-10 11:54] LABS: Anisocytosis Slight; Basophils % (A) 0 %; Eosinophils % (A) 0 %; HCT 28.3 % (39.0-53.0); Hypochromasia Marked; Lymphocytes # (A) 1.2 k/uL (1.0-4.8); Lymphocytes % (A) 9 %; MCH 27.2 pg (25.0-35.0); MCHC 31.5 g/dL (31.0-37.0); MCV 86.4 fL (80.0-100.0); Mean Platelet Volume 7.1; Monocytes # (A) 0.9 k/uL (0-1.0); Monocytes % (A) 6 %; Neutrophils # (A) 11.6 k/uL (1.3-7.7); Neutrophils % (A) 84 %; Platelet Count 251 k/uL (150-450); Poikilocytosis Slight; RBC 3.27 m/uL (4.30-5.90); RDW 18.8 % (11.5-15.5); WBC 13.9 k/uL (3.8-10.6)
[2017-11-10 11:57] LABS: HGB 8.9 gm/dL (13.0-17.5)
[2017-11-10] MEDS: LEVOFLOXACIN 250MG-D5W PMX 250 MG in DEXTROSE/WATER 1 50ML.BAG IVPB SCH (12:00)
--- NOTE | 2017-11-10 20:25 | PN ---
PROGRESS NOTE DATE OF SERVICE: 11/10/2017. PRESENTING COMPLAINT: Short of breath. INTERVAL HISTORY: Patient was admitted with CHF exacerbation and possible pneumonia. Patient was extubated this morning. Doing better. Patient is in sinus rhythm on nasal cannula. Tired, lying in bed. REVIEW OF SYSTEMS: Done for constitutional, cardiovascular, GI, pulmonary; relevant findings as above. CURRENT MEDICATIONS: Reviewed. They include IV Lasix 40 mg a day, IV cefepime and Levaquin. PHYSICAL EXAMINATION: Temperature 98.3, pulse 92, respiration 18, blood pressure 155/63, pulse ox 95% on 4 L. GENERAL APPEARANCE: Lying in bed, awake, tired-appearing. EYES: Pupils equal. Conjunctivae normal. HEENT: External appearance of nose and ears normal. Oral cavity dry. NECK: JVD unable to assess. Mass not palpable. RESPIRATORY: Effort increased. LUNGS: Decreased breath sounds. CARDIOVASCULAR: First and second sounds normal. Minimal edema. ABDOMEN: Soft, nontender. Liver and spleen not palpable. LYMPHATIC: No lymph node palpable in neck or axillae. PSYCHIATRY: Awake. Answering simple questions. INVESTIGATIONS: White count 13.9, hemoglobin 8.9. Blood gas showed a pH of 7.55. BUN 38, creatinine 1.50. Chest x-ray film interpreted by [facility] shows some right-sided infiltrate. ASSESSMENT: 1. Acute on chronic congestive heart failure exacerbation from diastolic dysfunction, ejection fraction 55% to 60%, with clinical improvement. 2. Moderate mitral regurgitation, non-rheumatic. 3. Coronary artery disease with prior history of stent and bypass. 4. Gastroesophageal reflux disease. 5. Hyperlipidemia. 6. Primary osteoarthritis. 7. Peripheral arterial disease. 8. Hiatal hernia. 9. Chronic tinnitus. 10.Chronic kidney disease, stage III, from nephrosclerosis. 11.Possible pneumonia; could be aspiration. PLAN: Continue current medication and treatment plan. Keep the patient on IV Lasix. Will discontinue the Levaquin, leave the patient on cefepime for right now. Will also discontinue the nitro paste. Diet will be advanced per website project manager. The patient is actually on cefepime, and Levaquin was added today by Pulmonary. Will continue the same. MMODL / IJN: [id number] /
[2017-11-11] MEDS: IPRATROPIUM-ALBUTEROL 3 ML NEB INHALATION SCH ×5 (00:21→20:52)
[2017-11-11] MEDS: HEPARIN SODIUM,PORCINE 5,000 UNIT/ML 1 ML VIAL SQ SCH ×4 (01:15→23:39)
[2017-11-11] MEDS: hydrALAZINE HCL 50 MG TAB PO SCH ×4 (02:59→22:23)
[2017-11-11 05:54] LABS: Anisocytosis Slight; Basophils % (A) 0 %; Eosinophils % (A) 0 %; HCT 28.3 % (39.0-53.0); HGB 8.5 gm/dL (13.0-17.5); Hypochromasia Marked; Lymphocytes # (A) 1.6 k/uL (1.0-4.8); Lymphocytes % (A) 14 %; MCH 25.6 pg (25.0-35.0); MCV 85.5 fL (80.0-100.0); Mean Platelet Volume 7.2; Monocytes # (A) 0.7 k/uL (0-1.0); Monocytes % (A) 6 %; Neutrophils # (A) 9.2 k/uL (1.3-7.7); Neutrophils % (A) 79 %; Platelet Count 244 k/uL (150-450); Poikilocytosis Slight; RBC 3.31 m/uL (4.30-5.90); RDW 18.6 % (11.5-15.5); WBC 11.7 k/uL (3.8-10.6)
[2017-11-11 06:03] LABS: Magnesium 2.8 mg/dL (1.6-2.3); Phosphorus 5.4 mg/dL (2.5-4.5); Potassium 3.8 mmol/L (3.5-5.1)
[2017-11-11] MEDS: ATORVASTATIN 80 MG TAB PO SCH (07:53)
[2017-11-11] MEDS: amLODIPine 10 MG TAB PO SCH (07:53)
[2017-11-11] MEDS: ASPIRIN 81 MG PO SCH (07:53)
[2017-11-11] MEDS: FUROSEMIDE 10 MG/ML 4 ML VIAL IV SCH (07:53)
[2017-11-11] MEDS: METOPROLOL TARTRATE 50 MG TAB PO SCH ×2 (07:55→20:20)
[2017-11-11] MEDS: PANTOPRAZOLE 40 MG/10 ML VIAL IV SCH (07:55)
[2017-11-11] MEDS: BUDESONIDE 1 MG/2 ML NEBU INHALATION SCH ×2 (08:02→20:52)
[2017-11-11] MEDS: FORMOTEROL FUMARATE 20 MCG/2 ML NEBU INHALATION SCH ×2 (08:02→20:52)
[2017-11-11] MEDS: CEFEPIME 1 GM in SODIUM CHLORIDE 0.9% 50 ML IVPB SCH (08:40)
--- NOTE | 2017-11-11 11:10 | P.PN ---
Subjective Progress Note Date: 11/11/17 Principal diagnosis: Acute hypoxemic and hypercapnic respiratory failure secondary to acute exacerbation of diastolic CHF, and a possibility of right lower lobe pneumonia, healthcare acquired. Mr. Duncan is a 72-year-old white male patient of Dr. Smiley, was brought in on 11/09/2017 for evaluation of severe respiratory distress, orthopnea, hypoxemic respiratory failure, chest pain. The onset of symptoms was in the evening, with progressive shortness of breath, after patient went to bed. She told his spouse he couldn't get enough air in, he was on oxygen and he requested his to turn up his oxygen to 6 L from 4 L. He then started complaining of severe substernal chest pain, spouse noted he was cyanotic, EMS was called, and patient was placed on BiPAP on the way to the hospital. In the emergency department patient was in severe distress, with impending respiratory failure, hypertensive with a blood pressure of 215/101. The decision was made to intubate the patient and place him on mechanical ventilator. Chest x-ray showed pulmonary interstitial and alveolar edema. EKG showed normal sinus rhythm with nonspecific STT wave changes. His labs showed a CBC of 15.5, hemoglobin of 7.4, potassium 5.2, BUN of 33, creatinine is 1.3, lactic acid of 1.5, troponin 0.098, proBNP was elevated at 3210. Blood gas showed pO2 of 338, pCO2 of 64, pH of 7.24, consistent with acute hypercapnic respiratory failure, and this was done on 100% FiO2 post intubation. Patient was recently hospitalized for acute exacerbation of diastolic congestive heart failure, and exacerbation of chronic obstructive pulmonary disease. Patient also developed right pleural effusion, and underwent right thoracentesis by Dr. De Paz on 10/27 with removal of 650 mL of serosanguineous pleural fluid. Pleural fluid cytology was negative for any cytologically malignant cells, and it was transudative in nature, secondary to congestive heart failure. Pleural fluid cultures revealed no growth. Patient was diuresed, clinically improved, he was discharged home in stable condition on home oxygen nebulized treatments and diuretics. During his last admission we try to qualify the patient for home BiPAP on the basis of his COPD, however his blood gas did not qualify him for it. There were questionable episodes of atrial fibrillation during last admission, patient is currently in sinus, not on any anticoagulation in view of previous history of bleeding gastric ulcers, and underlying anemia. Other medical history close coronary artery disease with previous coronary artery bypass grafting 3 in 2006, peripheral vascular disease with bilateral stent placements, hypertension, hyperlipidemia, osteoporosis, migraines, previous long -term smoking history. His maintenance inhalers include Symbicort and albuterol. He is currently sedated, on mechanical ventilator, on the Brovana at 45 mics per kilo per minute, he is receiving IV Lasix at 40 mg every 8 hours. His is at the bedside, and provided much of the history. On 11/10/2017 patient seen in follow-up in intensive care unit. He is sedated, remains on mechanical ventilator, on assist-control mode ventilation, with a rate of 18, tida volume of 500, FiO2 40% and PEEP of 5. His Diprivan and has been off for about an hour, patient remains very lethargic, today's hemoglobin is 6.9, and the patient is receiving a unit of blood, no obvious source of bleeding, he does have underlying chronic anemia, slight decreased from yesterday's hemoglobin from 7.4. Hemoynamically stable, not on any vasopressor support, 0.9 at a rate of 10 ML per hour, no other drips. Today's chest x-ray has been reviewed and shows mild pulmonary congestion, slight blunting of the costophrenic angles, and improving right lower lobe infiltrate. Patient has been diuresed, and he is in negative 3900 net fluid balance over the last 24 hours. Bilateral lower extremity edema has improved, his weight is trending down. Lung sounds are clear to auscultation, and his rhythm on the monitor, there has not been any atrial fibrillation episodes this admission. Blood gases showed pO2 of 77, pCO2 of 40, and pH of 7.51, patient is developing mild degree of metabolic alkalosis, his creatinine has increased, to 1.5, and cardiology has adjusted his diuretics to once daily. His is at the bedside , updated on his condition On 11/11/2017 patient seen in follow-up on selective care unit. He is up on the commode, in no acute distress, he is awake alert and oriented 3, his pulse ox is 91-93% on 4 L per nasal cannula, he is afebrile, hemodynamically stable, his respirations are nonlabored, lung sounds reveal a few crackles at the left lower base, no wheezing, no rhonchi, today's chest x-ray has been reviewed and shows stable findings of mild pulmonary congestion and right lower lobe opacity. Clinically patient denies dyspnea, no fever or chills, no chest wall tenderness. WBC is 11.7, and his leukocytosis has been trending down, hemoglobin is 8.5, electrolytes are within normal limits, BUN is 37, creatinine is 1.6, patient remains on IV diuretics at 40 mg once daily. She remains on empiric antibiotics for possibility of right lower lobe pneumonia, and microbiology results showed sputum culture positive for gram-negative bacilli. We'll continue with current abiotic coverage, in the form of cefepime and Levaquin, patient remains afebrile. Patient was given 2 doses of IV Diamox yesterday, and today's labs show CO2 down to 28 from 31. Objective - Vital Signs Vital signs: Vital Signs Temp 98.6 F 11/11/17 07:39 Pulse 80 11/11/17 08:24 Resp 16 11/11/17 07:47 BP 162/66 11/11/17 07:39 Pulse Ox 91 L 11/11/17 07:39 Intake & Output 11/10/17 11/11/17 11/11/17 18:59 06:59 18:59 Intake Total 531.100 110 Output Total 2320 925 Balance -1788.900 -815 Weight 55.5 kg Intake: IV 160 110 0.9 @ 10/hr 110 60 Cefepime 1 gm In Sodium 50 50 Chloride 0.9% 50 ml @ 100 mls/hr IVPB Q12HR [facility] Rx #:[id number] Intake, IV Titration 61.100 Amount Propofol 1,000 mg In 61.100 Empty Bag 1 bag @ Titrate IV .Q0M [facility] Rx#: [id number] Blood Product 310 Rc As-1 Unit 310 [id number] Output: Urine 2320 925 Other: Voiding Method Indwelling Catheter Indwelling Catheter Indwelling Catheter - Exam GENERAL EXAM: 72-year-old white male, cachectic, currently on 4 L per nasal cannula, in no acute distress, awake alert, oriented 3 HEAD: Normocephalic/atraumatic. EYES: Normal reaction of pupils, equal size. Conjunctiva pink, sclera white. NOSE: Clear with pink turbinates. THROAT: No erythema or exudates. NECK: No masses, no JVD, no thyroid enlargement, no adenopathy. CHEST: No chest wall deformity. Symmetrical expansion. LUNGS: Equal air entry with minimal crackles at the left lower base, wheeze, rhonchi or dullness. CVS: Regular rate and rhythm, normal S1 and S2, no gallops, no murmurs, no rubs ABDOMEN: Soft, nontender. No hepatosplenomegaly, normal bowel sounds, no guarding or rigidity. EXTREMITIES: No clubbing, no cyanosis, 2+ pulses and upper and lower extremities. No edema MUSCULOSKELETAL: Muscle strength and tone normal. SPINE: No scoliosis or deformity SKIN: No rashes CENTRAL NERVOUS SYSTEM: Sedated. No focal deficits, tone is normal in all 4 extremities. PSYCHIATRIC: Sedated. - Labs CBC & Chem 7: 11/11/17 05:18 11/11/17 05:18 Labs: Abnormal Lab Results - Last 24 Hours (Table) 11/10/17 11/11/17 11/11/17 Range/Units 11:21 05:18 05:18 WBC 13.9 H 11.7 H (3.8-10.6) k/uL RBC 3.27 L 3.31 L (4.30-5.90) m/uL Hgb 8.9 L D 8.5 L (13.0-17.5) gm/dL Hct 28.3 L 28.3 L (39.0-53.0) % MCHC 30.0 L (31.0-37.0) g/dL RDW 18.8 H 18.6 H (11.5-15.5) % Neutrophils # 11.6 H 9.2 H (1.3-7.7) k/uL BUN 37 H (9-20) mg/dL Creatinine 1.60 H (0.66-1.25) mg/dL Glucose 109 H (74-99) mg/dL Phosphorus 5.4 H (2.5-4.5) mg/dL Magnesium 2.8 H (1.6-2.3) mg/dL Microbiology - Last 24 Hours (Table) 11/09/17 02:30 Gram Stain - Preliminary Sputum Sputum Culture - Preliminary Gram Neg Bacilli 11/09/17 05:05 Blood Culture - Preliminary Blood No Growth after 48 hours 11/09/17 06:00 Urine Culture - Final Urine,Catheterized Assessment and Plan Plan: Assessment: #1. Acute hypoxemic and hypercapnic respiratory failure secondary to acute exacerbation of congestive heart failure, with previously diastolic dysfunction and the possibility of right lower lobe infiltrate, potentially healthcare acquired pneumonia. Sputum culture is positive for gram-negative bacilli, and the patient is covered with a combination of cefepime and Levaquin, awaiting final culture. #2. Recent hospitalization for acute exacerbation of COPD, and diastolic congestive heart failure. Patient had right thoracentesis with removal of 650 mL of transudative pleural fluid, and microbiology were negative #3. Elevated troponins #4. Acute kidney injury #5. History of coronary artery disease with previous coronary artery bypass grafting #6. Peripheral vascular disease with bilateral stents to the lower extremities #7. Anemia #8. Hypertension #9. Hyperlipidemia #10. Leukocytosis, which is actually improved from last admission possibly steroid related Plan: Continue current antibiotic coverage, continue IV diuretics, likely patient is stable, and improving, no worsening dyspnea, no fever or chills, no hemoptysis, no significant chest congestion, his chest x-ray has been reviewed, and shows stable findings of mild vascular congestion, and right lower lobe infiltrate. Microbiology results sputum growing gram-negative bacilli, awaiting final culture. No febrile episodes. Continue monitoring labs, vital signs, net fluid balance. I performed a history & physical examination of the patient and discussed their management with my nurse practitioner, Saray Galarza. I reviewed the nurse practitioner's note and agree with the documented findings and plan of care. Lung sounds are positive for minimal left lower lobe crackles. The findings and the impression was discussed with the patient. I attest to the documentation by the nurse practitioner. Time with Patient: Less than 30
--- NOTE | 2017-11-11 11:19 | XR ---
EXAMINATION TYPE: XR chest 1V DATE OF EXAM: 11/11/2017 COMPARISON: 11/10/2017 INDICATION: CHF, respiratory failure TECHNIQUE: Single frontal view of the chest is obtained. FINDINGS: The heart size is normal. The pulmonary vasculature is normal. Mild infiltrate is in the right lower lobe. Couple of air bronchograms are evident. Mild subsegmental atelectasis may be at the left base. Previous endotracheal tube and nasogastric tube is been removed. EKG overlie the chest. Sternotomy wi res a patient CABG is evident. IMPRESSION: 1. Right lower lobe infiltrate. Correlate for pneumonia. Follow-up is recommended. 2. Suspected subsegmental atelectasis left diaphragm.
[2017-11-11] MEDS: HYDROcodone/APAP 10-325MG 1 EACH TAB PO PRN (12:11)
[2017-11-11] MEDS: LEVOFLOXACIN 250MG-D5W PMX 250 MG in DEXTROSE/WATER 1 50ML.BAG IVPB SCH (12:11)
--- NOTE | 2017-11-11 14:50 | P.PN ---
Subjective Progress Note Date: 11/11/17 Is a 72-year-old gentleman with known history of coronary artery disease status post coronary bypass grafting surgery in 2006, chronic nicotine use, peripheral aspect disease, COPD, who was recently in the hospital with COPD exacerbation and heart failure exacerbation. Patient was discharged home and apparently returned to the hospital because he again was quite dyspneic. He was intubated and sedated initially on presentation here. Today the patient was followed up on the telemetry unit. He is in no acute distress today, awake alert and oriented 3, breathing is stable. White blood cell count 11.7, hemoglobin 8.5, BUN 37, creatinine 1.6. Patient continues to be on IV diuretics. His weight is down. Objective - Vital Signs Vital signs: Vital Signs Temp 98.5 F 11/11/17 11:08 Pulse 86 11/11/17 12:06 Resp 16 11/11/17 11:42 BP 168/67 11/11/17 11:08 Pulse Ox 94 L 11/11/17 11:08 Intake & Output 11/10/17 11/11/17 11/11/17 18:59 06:59 18:59 Intake Total 531.100 110 600 Output Total 2320 925 1500 Balance -1788.900 -815 -900 Weight 55.5 kg Intake: IV 160 110 0.9 @ 10/hr 110 60 Cefepime 1 gm In Sodium 50 50 Chloride 0.9% 50 ml @ 100 mls/hr IVPB Q12HR [facility] Rx #:[id number] Intake, IV Titration 61.100 Amount Propofol 1,000 mg In 61.100 Empty Bag 1 bag @ Titrate IV .Q0M [facility] Rx#: [id number] Oral 600 Blood Product 310 Rc As-1 Unit 310 [id number] Output: Urine 2320 925 1500 Other: Voiding Method Indwelling Catheter Indwelling Catheter Indwelling Catheter - Exam PHYSICAL EXAMINATION: GENERAL: 72-year-old gentleman in no acute distress at the time of my examination HEENT: Head is atraumatic, normocephalic. Pupils equal, round. Sclera anicteric. Conjunctiva are clear. Mucous membranes of the mouth are moist. Neck is supple. There is no elevated jugular venous pressure. No carotid bruit is heard. HEART EXAMINATION: Heart S1, S2 normal. No murmur or gallop heard. CHEST EXAMINATION: Reveal crackles to bilateral bases. ABDOMEN: Soft, nontender. Bowel sounds are heard. No organomegaly noted. EXTREMITIES: 2+ peripheral pulses with 1+ evidence of peripheral edema and no calf tenderness noted. NEUROLOGIC patient is awake, alert and oriented X3. . - Labs CBC & Chem 7: 11/11/17 05:18 11/11/17 05:18 Labs: Abnormal Lab Results - Last 24 Hours (Table) 11/11/17 11/11/17 Range/Units 05:18 05:18 WBC 11.7 H (3.8-10.6) k/uL RBC 3.31 L (4.30-5.90) m/uL Hgb 8.5 L (13.0-17.5) gm/dL Hct 28.3 L (39.0-53.0) % MCHC 30.0 L (31.0-37.0) g/dL RDW 18.6 H (11.5-15.5) % Neutrophils # 9.2 H (1.3-7.7) k/uL BUN 37 H (9-20) mg/dL Creatinine 1.60 H (0.66-1.25) mg/dL Glucose 109 H (74-99) mg/dL Phosphorus 5.4 H (2.5-4.5) mg/dL Magnesium 2.8 H (1.6-2.3) mg/dL Microbiology - Last 24 Hours (Table) 11/09/17 02:30 Gram Stain - Preliminary Sputum Sputum Culture - Preliminary Gram Neg Bacilli 11/09/17 05:05 Blood Culture - Preliminary Blood No Growth after 48 hours 11/09/17 06:00 Urine Culture - Final Urine,Catheterized Assessment and Plan Plan: Assessment and plan #1 respiratory failure with evidence of pulmonary edema #2 COPD exacerbation #3 coronary artery disease with prior bypass surgery #4 chronic tobacco use #5 hypertension #6 hyperlipidemia Plan We will continue current dose of IV Lasix. Check lytes BUN and creatinine along with daily weights and accurate intake and output. DNP note has been reviewed, I agree with a documented findings and plan of care. Patient was seen and examined.
[2017-11-11 15:10] VITALS: BMI 19.1
[2017-11-11] MEDS ORDERED: LACTULOSE 20 GM/30 ML CUP PO ONE (17:13)
--- NOTE | 2017-11-11 17:53 | PN ---
PROGRESS NOTE DATE OF SERVICE: 11/11/2017 PRESENTING COMPLAINT: Cough. INTERVAL HISTORY: Patient admitted with CHF exacerbation, pneumonia, moved out of the ICU. Patient was extubated yesterday. Breathing better, did tolerate some diet. Sitting up in bed. REVIEW OF SYSTEMS: Done for constitutional, cardiovascular, GI, pulmonary; relevant findings as above. CURRENT MEDICATIONS: Reviewed that include: 1. DuoNeb. 2. IV cefepime. 3. Levaquin. 4. Currently off Lasix. EXAMINATION: Temperature 98.5, pulse 75, respirations 16, blood pressure 116/67, pulse ox 94% on 3L. GENERAL APPEARANCE: Sitting on bed, more awake. EYES: Pupils equal. Conjunctivae normal. HEENT: External nose and ears normal. Oral cavity normal. NECK: JVD not raised. Mass not palpable. RESPIRATORY: Effort increased. LUNGS: Decreased breath sounds. CARDIOVASCULAR: First and second sounds normal. No edema. ABDOMEN: Soft, nontender. Liver and spleen not palpable. PSYCHIATRY: Awake, answering questions appropriately. INVESTIGATIONS: White count 11.7, hemoglobin 8.5. BUN 37, creatinine 1.60. ASSESSMENT: 1. Acute on chronic congestive heart failure exacerbation from diastolic dysfunction, ejection fraction 55%-60%, now euvolemic. 2. Moderate mitral regurgitation, nonrheumatic. 3. Coronary artery disease, prior history of stent and bypass. 4. Gastroesophageal reflux disease. 5. Hyperlipidemia. 6. Primary osteoarthritis. 7. Peripheral artery disease. 8. Hiatal hernia. 9. Chronic tinnitus. 10.Chronic kidney disease stage 3 from nephrosclerosis. 11.pneumonia, could be aspiration and/or gram-negative organism. PLAN: Patient is off of Lasix, overall doing better. Care was discussed with the patient and family member at the bedside. Chest x-ray showing right-sided infiltrate. Will continue IV antibiotic for 1 more day. MMODL / IJN: [id number] /
[2017-11-12] MEDS: PANTOPRAZOLE 40 MG TABLET PO SCH (06:45)
[2017-11-12 06:54] LABS: Calcium 8.6 mg/dL (8.4-10.2); Magnesium 2.5 mg/dL (1.6-2.3); Phosphorus 3.3 mg/dL (2.5-4.5); Potassium 4.2 mmol/L (3.5-5.1)
[2017-11-12] MEDS: BUDESONIDE 1 MG/2 ML NEBU INHALATION SCH ×2 (07:58→19:27)
[2017-11-12] MEDS: IPRATROPIUM-ALBUTEROL 3 ML NEB INHALATION SCH ×4 (07:58→19:27)
[2017-11-12] MEDS: FORMOTEROL FUMARATE 20 MCG/2 ML NEBU INHALATION SCH ×2 (07:58→19:27)
[2017-11-12] MEDS: HEPARIN SODIUM,PORCINE 5,000 UNIT/ML 1 ML VIAL SQ SCH ×3 (08:13→22:57)
[2017-11-12] MEDS: amLODIPine 10 MG TAB PO SCH (08:13)
[2017-11-12] MEDS: ATORVASTATIN 80 MG TAB PO SCH (08:13)
[2017-11-12] MEDS: ASPIRIN 81 MG PO SCH (08:13)
[2017-11-12] MEDS: METOPROLOL TARTRATE 50 MG TAB PO SCH ×2 (08:14→20:25)
[2017-11-12] MEDS: FUROSEMIDE 10 MG/ML 4 ML VIAL IV SCH (08:14)
[2017-11-12] MEDS: hydrALAZINE HCL 50 MG TAB PO SCH ×3 (08:14→20:24)
[2017-11-12] MEDS: HYDROcodone/APAP 10-325MG 1 EACH TAB PO PRN (08:18)
[2017-11-12] MEDS ORDERED: CEFEPIME 1 GM in SODIUM CHLORIDE 0.9% 50 ML IVPB SCH (09:00)
--- NOTE | 2017-11-12 09:41 | P.PN ---
Subjective Progress Note Date: 11/12/17 Principal diagnosis: Acute on chronic hypoxic and hypercapnic respiratory failure secondary to an acute exacerbation of diastolic congestive heart failure, right lower lobe pneumonia, healthcare acquired. Mr. Duncan is a 72-year-old white male patient of Dr. Smiley, was brought in on 11/09/2017 for evaluation of severe respiratory distress, orthopnea, hypoxemic respiratory failure, chest pain. The onset of symptoms was in the evening, with progressive shortness of breath, after patient went to bed. She told his spouse he couldn't get enough air in, he was on oxygen and he requested his to turn up his oxygen to 6 L from 4 L. He then started complaining of severe substernal chest pain, spouse noted he was cyanotic, EMS was called, and patient was placed on BiPAP on the way to the hospital. In the emergency department patient was in severe distress, with impending respiratory failure, hypertensive with a blood pressure of 215/101. The decision was made to intubate the patient and place him on mechanical ventilator. Chest x-ray showed pulmonary interstitial and alveolar edema. EKG showed normal sinus rhythm with nonspecific STT wave changes. His labs showed a CBC of 15.5, hemoglobin of 7.4, potassium 5.2, BUN of 33, creatinine is 1.3, lactic acid of 1.5, troponin 0.098, proBNP was elevated at 3210. Blood gas showed pO2 of 338, pCO2 of 64, pH of 7.24, consistent with acute hypercapnic respiratory failure, and this was done on 100% FiO2 post intubation. Patient was recently hospitalized for acute exacerbation of diastolic congestive heart failure, and exacerbation of chronic obstructive pulmonary disease. Patient also developed right pleural effusion, and underwent right thoracentesis by Dr. De Paz on 10/27 with removal of 650 mL of serosanguineous pleural fluid. Pleural fluid cytology was negative for any cytologically malignant cells, and it was transudative in nature, secondary to congestive heart failure. Pleural fluid cultures revealed no growth. Patient was diuresed, clinically improved, he was discharged home in stable condition on home oxygen nebulized treatments and diuretics. During his last admission we try to qualify the patient for home BiPAP on the basis of his COPD, however his blood gas did not qualify him for it. There were questionable episodes of atrial fibrillation during last admission, patient is currently in sinus, not on any anticoagulation in view of previous history of bleeding gastric ulcers, and underlying anemia. Other medical history close coronary artery disease with previous coronary artery bypass grafting 3 in 2006, peripheral vascular disease with bilateral stent placements, hypertension, hyperlipidemia, osteoporosis, migraines, previous long -term smoking history. His maintenance inhalers include Symbicort and albuterol. He is currently sedated, on mechanical ventilator, on the Brovana at 45 mics per kilo per minute, he is receiving IV Lasix at 40 mg every 8 hours. His is at the bedside, and provided much of the history. On 11/10/2017 patient seen in follow-up in intensive care unit. He is sedated, remains on mechanical ventilator, on assist-control mode ventilation, with a rate of 18, tida volume of 500, FiO2 40% and PEEP of 5. His Diprivan and has been off for about an hour, patient remains very lethargic, today's hemoglobin is 6.9, and the patient is receiving a unit of blood, no obvious source of bleeding, he does have underlying chronic anemia, slight decreased from yesterday's hemoglobin from 7.4. Hemoynamically stable, not on any vasopressor support, 0.9 at a rate of 10 ML per hour, no other drips. Today's chest x-ray has been reviewed and shows mild pulmonary congestion, slight blunting of the costophrenic angles, and improving right lower lobe infiltrate. Patient has been diuresed, and he is in negative 3900 net fluid balance over the last 24 hours. Bilateral lower extremity edema has improved, his weight is trending down. Lung sounds are clear to auscultation, and his rhythm on the monitor, there has not been any atrial fibrillation episodes this admission. Blood gases showed pO2 of 77, pCO2 of 40, and pH of 7.51, patient is developing mild degree of metabolic alkalosis, his creatinine has increased, to 1.5, and cardiology has adjusted his diuretics to once daily. His is at the bedside , updated on his condition On 11/11/2017 patient seen in follow-up on selective care unit. He is up on the commode, in no acute distress, he is awake alert and oriented 3, his pulse ox is 91-93% on 4 L per nasal cannula, he is afebrile, hemodynamically stable, his respirations are nonlabored, lung sounds reveal a few crackles at the left lower base, no wheezing, no rhonchi, today's chest x-ray has been reviewed and shows stable findings of mild pulmonary congestion and right lower lobe opacity. Clinically patient denies dyspnea, no fever or chills, no chest wall tenderness. WBC is 11.7, and his leukocytosis has been trending down, hemoglobin is 8.5, electrolytes are within normal limits, BUN is 37, creatinine is 1.6, patient remains on IV diuretics at 40 mg once daily. She remains on empiric antibiotics for possibility of right lower lobe pneumonia, and microbiology results showed sputum culture positive for gram-negative bacilli. We'll continue with current abiotic coverage, in the form of cefepime and Levaquin, patient remains afebrile. Patient was given 2 doses of IV Diamox yesterday, and today's labs show CO2 down to 28 from 31. Patient is seen today 11/12/2017 in follow-up on the selective care unit. He is currently resting quite comfortably in bed. He denies any worsening shortness of breath, cough or congestion. No chills or night sweats. His breathing is nearly back to his baseline. He is currently maintaining good O2 saturations in the upper 90s on 3 L/m per nasal cannula. He is afebrile. Hemodynamically stable. Sputum cultures positive for gram-negative bacilli. He is currently on cefepime and Levaquin. Bicarb any 7. Creatinine 1.26. He remains on IV diuretics. Objective - Vital Signs Vital signs: Vital Signs Temp 98 F 11/12/17 08:44 Pulse 76 11/12/17 08:44 Resp 17 11/12/17 08:44 BP 161/76 11/12/17 08:44 Pulse Ox 96 11/12/17 08:44 Intake & Output 11/11/17 11/12/17 11/12/17 18:59 06:59 18:59 Intake Total 1200 240 Output Total 1500 1100 Balance -300 -1100 240 Weight 55.5 kg 55.8 kg Intake: Oral 1200 240 Output: Urine 1500 1100 Other: Voiding Method Urinal Urinal # Voids 1 - Exam GENERAL EXAM: 72-year-old white male, cachectic, currently on 3 L per nasal cannula, in no acute distress, awake alert, oriented 3 HEAD: Normocephalic/atraumatic. EYES: Normal reaction of pupils, equal size. Conjunctiva pink, sclera white. NOSE: Clear with pink turbinates. THROAT: No erythema or exudates. NECK: No masses, no JVD, no thyroid enlargement, no adenopathy. CHEST: No chest wall deformity. Symmetrical expansion. LUNGS: Equal air entry with minimal crackles at the left lower base, wheeze, rhonchi or dullness. CVS: Regular rate and rhythm, normal S1 and S2, no gallops, no murmurs, no rubs ABDOMEN: Soft, nontender. No hepatosplenomegaly, normal bowel sounds, no guarding or rigidity. EXTREMITIES: No clubbing, no cyanosis, 2+ pulses and upper and lower extremities. No edema MUSCULOSKELETAL: Muscle strength and tone normal. SPINE: No scoliosis or deformity SKIN: No rashes CENTRAL NERVOUS SYSTEM: Sedated. No focal deficits, tone is normal in all 4 extremities. PSYCHIATRIC: Calm, alert and oriented. - Labs CBC & Chem 7: 11/11/17 05:18 11/12/17 06:28 Labs: Abnormal Lab Results - Last 24 Hours (Table) 11/12/17 Range/Units 06:28 BUN 32 H (9-20) mg/dL Creatinine 1.26 H (0.66-1.25) mg/dL Magnesium 2.5 H (1.6-2.3) mg/dL Microbiology - Last 24 Hours (Table) 11/09/17 05:05 Blood Culture - Preliminary Blood No Growth after 72 hours 11/09/17 02:30 Gram Stain - Preliminary Sputum Sputum Culture - Preliminary Gram Neg Bacilli Assessment and Plan Assessment: Assessment: #1. Acute on chronic hypoxemic and hypercapnic respiratory failure secondary to acute exacerbation of congestive heart failure, with previously diastolic dysfunction and the possibility of right lower lobe infiltrate, potentially healthcare acquired pneumonia. Sputum culture is positive for gram-negative bacilli, and the patient is covered with a combination of cefepime and Levaquin , awaiting final culture. #2. Recent hospitalization for acute exacerbation of COPD, and diastolic congestive heart failure. Patient had right thoracentesis with removal of 650 mL of transudative pleural fluid, and microbiology were negative #3. Elevated troponins #4. Acute kidney injury #5. History of coronary artery disease with previous coronary artery bypass grafting #6. Peripheral vascular disease with bilateral stents to the lower extremities #7. Anemia #8. Hypertension #9. Hyperlipidemia #10. Leukocytosis, which is actually improved from last admission possibly steroid related Plan: The patient is seen and evaluated by Dr. Denson. He is improving but not quite back to his baseline. We'll continue with the current treatment plan. We 'll increase his activity as tolerated. We'll continue to follow. I, the cosigning physician, performed a history & physical examination of the patient. Lungs sounds few scattered rhonchi crackles in left base. Maintaining good O2 saturations in the 90s on 3 L/m per nasal cannula. I discussed the assessment and plan of care with my nurse practitioner, Cintia Thomas. I attest to the above note as dictated by her.
[2017-11-12] MEDS: LEVOFLOXACIN 250MG-D5W PMX 250 MG in DEXTROSE/WATER 1 50ML.BAG IVPB SCH (13:43)
[2017-11-12] MEDS: SPIRONOLACTONE 25 MG TAB PO SCH (16:21)
--- NOTE | 2017-11-12 16:36 | PN ---
PROGRESS NOTE DATE OF SERVICE: 11/12/2017 PRESENTING COMPLAINT: Cough. INTERVAL HISTORY: Patient presented with CHF exacerbation, pneumonia. Doing much better. Breathing is getting better. Tolerating a diet. Did get out of bed. On nasal cannula. REVIEW OF SYSTEMS: Done for constitutional, cardiovascular, GI, pulmonary; relevant findings as above. CURRENT MEDICATIONS: Reviewed. They include IV cefepime, DuoNeb. PHYSICAL EXAMINATION: Temperature 98, pulse 72, respiration 17, blood pressure 161/76, pulse ox 96% on 3 L. GENERAL APPEARANCE: Sitting up. More comfortable. EYES: Pupils equal. Conjunctivae normal. HEENT: External appearance of nose and ears normal. Oral cavity normal. NECK: JVD not raised. Mass not palpable. RESPIRATORY: Effort increased. LUNGS: Decreased breath sounds. CARDIOVASCULAR: First and second sounds normal. No edema. ABDOMEN: Soft, non-tender. Liver and spleen not palpable. PSYCHIATRY: Awake. Answering questions appropriately. INVESTIGATIONS: BUN 32, creatinine 1.26. ASSESSMENT: 1. Acute on chronic congestive heart failure from diastolic dysfunction, ejection fraction 55% to 60%, now euvolemic. 2. Moderate mitral regurgitation, non-rheumatic. 3. Coronary artery disease with prior history of stent and bypass. 4. Gastroesophageal reflux disease. 5. Hyperlipidemia. 6. Primary osteoarthritis. 7. Peripheral arterial disease. 8. Hiatal hernia. 9. Chronic tinnitus. 10.Chronic kidney disease, stage III, from nephrosclerosis. 11.Pneumonia; could be aspiration and/or gram-negative organism. PLAN: Overall doing much better. Discussed with Dr. Denson. Will switch the patient into p.o. Augmentin. Will switch the patient over to p.o. Lasix. MMODL / IJN: [id number] /
[2017-11-12] MEDS: AMOXIC-POT CLAV 875-125MG 1 EACH TAB PO SCH (20:24)
[2017-11-12] MEDS: SENNOSIDES-DOCUSATE SODIUM 1 EACH TAB PO SCH (20:25)
--- NOTE | 2017-11-12 20:36 | PN ---
PROGRESS NOTE This patient's medical records were reviewed. This patient is admitted with acute on chronic respiratory distress, COPD and possibly diastolic heart failure. Patient is comfortable without any respiratory distress. Denies any chest pain. The patient's blood pressure is 120/80 mmHg. First and second heart sounds are normal. Lungs examination reveals bilateral wheezes. There is no evidence of any significant leg edema. The patient's hemoglobin is 8.5, creatinine is 1.2. IMPRESSION: The patient's respiratory distress is improving. Patient is anemic. age indeterminate. Further workup for anemia. Suggested we will add Aldactone once a day. MMODL / IJN: [id number] /
[2017-11-13 06:40] LABS: Anisocytosis Slight; Basophils % (A) 0 %; Eosinophils # (A) 0.1 k/uL (0-0.7); Eosinophils % (A) 1 %; HCT 29.8 % (39.0-53.0); HGB 8.7 gm/dL (13.0-17.5); Hypochromasia Marked; Lymphocytes # (A) 1.1 k/uL (1.0-4.8); Lymphocytes % (A) 15 %; MCH 24.7 pg (25.0-35.0); MCHC 29.1 g/dL (31.0-37.0); MCV 84.8 fL (80.0-100.0); Mean Platelet Volume 7.9; Monocytes # (A) 0.4 k/uL (0-1.0); Monocytes % (A) 6 %; Neutrophils # (A) 5.2 k/uL (1.3-7.7); Neutrophils % (A) 74 %; Platelet Count 234 k/uL (150-450); Poikilocytosis Slight; RBC 3.52 m/uL (4.30-5.90); RDW 17.6 % (11.5-15.5); WBC 7.1 k/uL (3.8-10.6)
[2017-11-13] MEDS: PANTOPRAZOLE 40 MG TABLET PO SCH (06:51)
[2017-11-13] MEDS: amLODIPine 10 MG TAB PO SCH (06:56)
[2017-11-13 06:57] LABS: Calcium 8.5 mg/dL (8.4-10.2); Magnesium 2.4 mg/dL (1.6-2.3); Phosphorus 3.2 mg/dL (2.5-4.5); Potassium 4.5 mmol/L (3.5-5.1)
[2017-11-13] MEDS: BUDESONIDE 1 MG/2 ML NEBU INHALATION SCH ×2 (07:53→20:33)
[2017-11-13] MEDS: FORMOTEROL FUMARATE 20 MCG/2 ML NEBU INHALATION SCH ×2 (07:53→20:33)
[2017-11-13] MEDS: IPRATROPIUM-ALBUTEROL 3 ML NEB INHALATION SCH ×4 (07:53→20:33)
[2017-11-13] MEDS: HEPARIN SODIUM,PORCINE 5,000 UNIT/ML 1 ML VIAL SQ SCH ×3 (09:23→23:21)
[2017-11-13] MEDS: AMOXIC-POT CLAV 875-125MG 1 EACH TAB PO SCH ×2 (09:23→21:40)
[2017-11-13] MEDS: FUROSEMIDE 40 MG TAB PO SCH (09:24)
[2017-11-13] MEDS: LEVOFLOXACIN 250 MG TAB PO SCH (09:24)
[2017-11-13] MEDS: METOPROLOL TARTRATE 50 MG TAB PO SCH ×2 (09:24→21:40)
[2017-11-13] MEDS: ATORVASTATIN 80 MG TAB PO SCH (09:24)
[2017-11-13] MEDS: ASPIRIN 81 MG PO SCH (09:24)
[2017-11-13] MEDS: SPIRONOLACTONE 25 MG TAB PO SCH (09:25)
[2017-11-13] MEDS: SENNOSIDES-DOCUSATE SODIUM 1 EACH TAB PO SCH (09:25)
[2017-11-13] MEDS: hydrALAZINE HCL 50 MG TAB PO SCH ×2 (09:25→16:22)
--- NOTE | 2017-11-13 12:01 | P.PN ---
Subjective Progress Note Date: 11/13/17 Mr. Duncan is a 72-year-old white male patient of Dr. Smiley, was brought in on 11/09/2017 for evaluation of severe respiratory distress, orthopnea, hypoxemic respiratory failure, chest pain. The onset of symptoms was in the evening, with progressive shortness of breath, after patient went to bed. She told his spouse he couldn't get enough air in, he was on oxygen and he requested his to turn up his oxygen to 6 L from 4 L. He then started complaining of severe substernal chest pain, spouse noted he was cyanotic, EMS was called, and patient was placed on BiPAP on the way to the hospital. In the emergency department patient was in severe distress, with impending respiratory failure, hypertensive with a blood pressure of 215/101. The decision was made to intubate the patient and place him on mechanical ventilator. Chest x-ray showed pulmonary interstitial and alveolar edema. EKG showed normal sinus rhythm with nonspecific STT wave changes. His labs showed a CBC of 15.5, hemoglobin of 7.4, potassium 5.2, BUN of 33, creatinine is 1.3, lactic acid of 1.5, troponin 0.098, proBNP was elevated at 3210. Blood gas showed pO2 of 338, pCO2 of 64, pH of 7.24, consistent with acute hypercapnic respiratory failure, and this was done on 100% FiO2 post intubation. Patient was recently hospitalized for acute exacerbation of diastolic congestive heart failure, and exacerbation of chronic obstructive pulmonary disease. Patient also developed right pleural effusion, and underwent right thoracentesis by Dr. De Paz on 10/27 with removal of 650 mL of serosanguineous pleural fluid. Pleural fluid cytology was negative for any cytologically malignant cells, and it was transudative in nature, secondary to congestive heart failure. Pleural fluid cultures revealed no growth. Patient was diuresed, clinically improved, he was discharged home in stable condition on home oxygen nebulized treatments and diuretics. During his last admission we try to qualify the patient for home BiPAP on the basis of his COPD, however his blood gas did not qualify him for it. There were questionable episodes of atrial fibrillation during last admission, patient is currently in sinus, not on any anticoagulation in view of previous history of bleeding gastric ulcers, and underlying anemia. Other medical history close coronary artery disease with previous coronary artery bypass grafting 3 in 2006, peripheral vascular disease with bilateral stent placements, hypertension, hyperlipidemia, osteoporosis, migraines, previous long -term smoking history. His maintenance inhalers include Symbicort and albuterol. He is currently sedated, on mechanical ventilator, on the Brovana at 45 mics per kilo per minute, he is receiving IV Lasix at 40 mg every 8 hours. His is at the bedside, and provided much of the history. On 11/10/2017 patient seen in follow-up in intensive care unit. He is sedated, remains on mechanical ventilator, on assist-control mode ventilation, with a rate of 18, tida volume of 500, FiO2 40% and PEEP of 5. His Diprivan and has been off for about an hour, patient remains very lethargic, today's hemoglobin is 6.9, and the patient is receiving a unit of blood, no obvious source of bleeding, he does have underlying chronic anemia, slight decreased from yesterday's hemoglobin from 7.4. Hemoynamically stable, not on any vasopressor support, 0.9 at a rate of 10 ML per hour, no other drips. Today's chest x-ray has been reviewed and shows mild pulmonary congestion, slight blunting of the costophrenic angles, and improving right lower lobe infiltrate. Patient has been diuresed, and he is in negative 3900 net fluid balance over the last 24 hours. Bilateral lower extremity edema has improved, his weight is trending down. Lung sounds are clear to auscultation, and his rhythm on the monitor, there has not been any atrial fibrillation episodes this admission. Blood gases showed pO2 of 77, pCO2 of 40, and pH of 7.51, patient is developing mild degree of metabolic alkalosis, his creatinine has increased, to 1.5, and cardiology has adjusted his diuretics to once daily. His is at the bedside , updated on his condition On 11/11/2017 patient seen in follow-up on selective care unit. He is up on the commode, in no acute distress, he is awake alert and oriented 3, his pulse ox is 91-93% on 4 L per nasal cannula, he is afebrile, hemodynamically stable, his respirations are nonlabored, lung sounds reveal a few crackles at the left lower base, no wheezing, no rhonchi, today's chest x-ray has been reviewed and shows stable findings of mild pulmonary congestion and right lower lobe opacity. Clinically patient denies dyspnea, no fever or chills, no chest wall tenderness. WBC is 11.7, and his leukocytosis has been trending down, hemoglobin is 8.5, electrolytes are within normal limits, BUN is 37, creatinine is 1.6, patient remains on IV diuretics at 40 mg once daily. She remains on empiric antibiotics for possibility of right lower lobe pneumonia, and microbiology results showed sputum culture positive for gram-negative bacilli. We'll continue with current abiotic coverage, in the form of cefepime and Levaquin, patient remains afebrile. Patient was given 2 doses of IV Diamox yesterday, and today's labs show CO2 down to 28 from 31. Patient is seen today 11/12/2017 in follow-up on the selective care unit. He is currently resting quite comfortably in bed. He denies any worsening shortness of breath, cough or congestion. No chills or night sweats. His breathing is nearly back to his baseline. He is currently maintaining good O2 saturations in the upper 90s on 3 L/m per nasal cannula. He is afebrile. Hemodynamically stable. Sputum cultures positive for gram-negative bacilli. He is currently on cefepime and Levaquin. Bicarb any 7. Creatinine 1.26. He remains on IV diuretics. On 11/13/2017 the patient is looking well. He has no specific complaints. No significant shortness of breath is ambulating. No cough sputum production chest vessel wheezing. No change in mental status. I took this patient off IV antibiotics and put him on oral Augmentin. Hemoglobin stable at 8.7. The renal function is also stable with a creatinine of 1.3. The patient is on Lasix orally 40 mg by mouth daily. The sputum culture came back positive for achromobacter spp. Based on that, Levaquin was added to the regimen Objective - Vital Signs Vital signs: Vital Signs Temp 98.4 F 11/13/17 08:00 Pulse 75 11/13/17 11:55 Resp 17 11/13/17 11:55 BP 160/75 11/13/17 11:55 Pulse Ox 95 11/13/17 11:55 Intake & Output 11/12/17 11/13/17 11/13/17 18:59 06:59 18:59 Intake Total 1490 250 Output Total 1000 300 Balance 1490 -750 -300 Weight 56.8 kg Intake: IV 50 0.9 @ 10/hr 50 Intake, IV Titration 0 Amount Cefepime 1 gm In Sodium 0 Chloride 0.9% 50 ml @ 100 mls/hr IVPB Q24HR [facility] Rx #:[id number] Levofloxacin 250Mg-D5w 0 Pmx 250 mg In Dextrose/ Water 1 50ml.bag @ 50 mls /hr IVPB Q24H [facility] Rx#: [id number] Oral 1440 250 Output: Urine 1000 300 Other: Voiding Method Bedside Commode Bedside Commode Bedside Commode Urinal Urinal Urinal # Voids 1 - Exam GENERAL EXAM: 72-year-old white male, cachectic, currently on 3 L per nasal cannula, in no acute distress, awake alert, oriented 3 HEAD: Normocephalic/atraumatic. EYES: Normal reaction of pupils, equal size. Conjunctiva pink, sclera white. NOSE: Clear with pink turbinates. THROAT: No erythema or exudates. NECK: No masses, no JVD, no thyroid enlargement, no adenopathy. CHEST: No chest wall deformity. Symmetrical expansion. LUNGS: Equal air entry with minimal crackles at the left lower base, wheeze, rhonchi or dullness. CVS: Regular rate and rhythm, normal S1 and S2, no gallops, no murmurs, no rubs ABDOMEN: Soft, nontender. No hepatosplenomegaly, normal bowel sounds, no guarding or rigidity. EXTREMITIES: No clubbing, no cyanosis, 2+ pulses and upper and lower extremities. No edema MUSCULOSKELETAL: Muscle strength and tone normal. SPINE: No scoliosis or deformity SKIN: No rashes CENTRAL NERVOUS SYSTEM: Sedated. No focal deficits, tone is normal in all 4 extremities. PSYCHIATRIC: Calm, alert and oriented. - Labs CBC & Chem 7: 11/13/17 06:17 11/13/17 06:17 Labs: Abnormal Lab Results - Last 24 Hours (Table) 11/13/17 11/13/17 Range/Units 06:17 06:17 RBC 3.52 L (4.30-5.90) m/uL Hgb 8.7 L (13.0-17.5) gm/dL Hct 29.8 L (39.0-53.0) % MCH 24.7 L (25.0-35.0) pg MCHC 29.1 L (31.0-37.0) g/dL RDW 17.6 H (11.5-15.5) % Sodium 136 L (137-145) mmol/L BUN 35 H (9-20) mg/dL Creatinine 1.31 H (0.66-1.25) mg/dL Glucose 117 H (74-99) mg/dL Magnesium 2.4 H (1.6-2.3) mg/dL Microbiology - Last 24 Hours (Table) 11/09/17 02:30 Gram Stain - Final Sputum Sputum Culture - Final Achromobacter xylos SS denit 11/09/17 05:05 Blood Culture - Preliminary Blood No Growth after 96 hours Assessment and Plan Plan: #1. Acute on chronic hypoxemic and hypercapnic respiratory failure secondary to acute exacerbation of congestive heart failure, with previously diastolic dysfunction and the possibility of right lower lobe infiltrate, potentially healthcare acquired pneumonia. Sputum culture is positive for gram-negative bacilli which do not to be achromobacter and the patient is currently on a combination of Augmentin and Levaquin. #2. Recent hospitalization for acute exacerbation of COPD, and diastolic congestive heart failure. Patient had right thoracentesis with removal of 650 mL of transudative pleural fluid, and microbiology were negative #3. Elevated troponins #4. Acute kidney injury #5. History of coronary artery disease with previous coronary artery bypass grafting #6. Peripheral vascular disease with bilateral stents to the lower extremities #7. Anemia #8. Hypertension #9. Hyperlipidemia #10. Leukocytosis, which is actually improved from last admission possibly steroid related Plan Continue Augmentin. Continue Levaquin. Continue bronchodilators. Continue oral Lasix. Increased level of activity as tolerated. We'll continue to follow. He is recovering from acute ventilator-dependent respiratory failure. The patient may potentially be discharged next 24-48 hours.
[2017-11-13] MEDS: HYDROcodone/APAP 10-325MG 1 EACH TAB PO PRN (13:30)
--- NOTE | 2017-11-13 20:43 | PN ---
PROGRESS NOTE DATE OF ADMISSION: November 13, 2017 PRESENTING COMPLAINT: Tired. INTERVAL HISTORY: Patient presented with CHF exacerbation, pneumonia. Continues to do much better. Feeling nearly back to his baseline. Did walk a few times around the room. Family is present. Tolerating a diet. Did have a bowel movement. REVIEW OF SYSTEMS: Done for constitutional, cardiovascular, GI, pulmonary, relevant findings as above. CURRENT MEDICATIONS: Reviewed that include Augmentin, Levaquin. PHYSICAL EXAMINATION: VITAL SIGNS: Temperature 98.4, pulse 74, respiratory 18, blood pressure 150/72, pulse ox 97% on 3.5 L. GENERAL APPEARANCE: Sitting up, awake. EYES: Pupils equal. Conjunctivae normal. HEENT: External appearance of nose and ears normal. Oral cavity normal. NECK: JVD not raised. Mass not palpable. RESPIRATORY: Effort increased. LUNGS: Decreased breath sounds. CARDIOVASCULAR: 1st and 2nd sounds normal. No edema. ABDOMEN: Soft, nontender. Liver and spleen not palpable. PSYCHIATRY: Awake, answering questions appropriately. INVESTIGATIONS: White count 7.1, hemoglobin 8.7, BUN 35, creatinine 1.31. Microbiology sputum is growing Achromobacter xylose. ASSESSMENT: 1. Acute on chronic congestive heart failure exacerbation from diastolic dysfunction. Ejection fraction 55-60%, now euvolemic. 2. Pneumonia from Achromobacter xylose with clinical improvement. White count is coming down. Patient really feels back to baseline. 3. Moderate mitral regurgitation, nonrheumatic. 4. Coronary artery disease with prior history of stent and bypass. 5. Gastroesophageal reflux disease. 6. Essential hypertension uncontrolled. 7. Hyperlipidemia. 8. Primary osteoarthritis. 9. Peripheral artery disease. 10.Hiatal hernia. 11.Chronic tinnitus. 12.Chronic kidney disease stage 3 from nephrosclerosis. 13.Hypertensive heart disease. PLAN: For better blood pressure control, we will increase patient's beta kandis 100 mg twice a day. We will stop hydralazine. There is no systolic dysfunction. The patient's antibiotics compatible with the sensitivity. Did talk to the patient's family. Looking at patient going home tomorrow. MMODL / IJN: [id number] /
[2017-11-14] MEDS: PANTOPRAZOLE 40 MG TABLET PO SCH (06:23)
[2017-11-14 06:28] LABS: Calcium 8.5 mg/dL (8.4-10.2); Magnesium 2.2 mg/dL (1.6-2.3); Phosphorus 3.4 mg/dL (2.5-4.5); Potassium 4.4 mmol/L (3.5-5.1)
[2017-11-14] MEDS: IPRATROPIUM-ALBUTEROL 3 ML NEB INHALATION SCH ×3 (08:05→15:16)
[2017-11-14] MEDS: FORMOTEROL FUMARATE 20 MCG/2 ML NEBU INHALATION SCH (08:05)
[2017-11-14] MEDS: BUDESONIDE 1 MG/2 ML NEBU INHALATION SCH (08:05)
[2017-11-14] MEDS: amLODIPine 10 MG TAB PO SCH (08:42)
[2017-11-14] MEDS: ATORVASTATIN 80 MG TAB PO SCH (08:42)
[2017-11-14] MEDS: SPIRONOLACTONE 25 MG TAB PO SCH (08:42)
[2017-11-14] MEDS: HEPARIN SODIUM,PORCINE 5,000 UNIT/ML 1 ML VIAL SQ SCH (08:42)
[2017-11-14] MEDS: ASPIRIN 81 MG PO SCH (08:43)
[2017-11-14] MEDS: FUROSEMIDE 40 MG TAB PO SCH (08:43)
[2017-11-14] MEDS: LEVOFLOXACIN 250 MG TAB PO SCH (08:43)
[2017-11-14] MEDS: AMOXIC-POT CLAV 875-125MG 1 EACH TAB PO SCH (08:43)
[2017-11-14] MEDS: METOPROLOL TARTRATE 50 MG TAB PO SCH (08:43)
[2017-11-14] MEDS: SENNOSIDES-DOCUSATE SODIUM 1 EACH TAB PO SCH (08:43)
[2017-11-14 08:52] VITALS: RESP 16; TEMP 96.7
--- NOTE | 2017-11-14 08:53 | PN ---
PROGRESS NOTE This patient was admitted with acute respiratory distress secondary to acute exacerbation of COPD and mild diastolic heart failure. Patient is doing well. He is comfortable and resting comfortably in the bed. Denies any orthopnea or PND. Blood pressure is 164/69 mmHg, respirations not labored. Oxygen saturation is 98%. First and second heart sounds are normal. Lungs are clinically clear to auscultation and percussion. Patient's hemoglobin is 8.7, electrolytes are normal. Creatinine is 1.31 and serum iron studies for anemia is being awaited. I will continue the current medications. MMODL / IJN: [id number] /
[2017-11-14 10:32] LABS: Iron Saturation 7.21 (15.00-50.00)
[2017-11-14] MEDS: HYDROcodone/APAP 10-325MG 1 EACH TAB PO PRN (10:38)
[2017-11-14 11:39] VITALS: BP 164/75
[2017-11-14 11:44] VITALS: PULSE 64
--- NOTE | 2017-11-14 14:32 | P.PN ---
Subjective Progress Note Date: 11/14/17 Principal diagnosis: Acute on chronic hypoxic and hypercapnic respiratory failure secondary to diastolic congestive heart failure and healthcare acquired pneumonia, as well as underlying COPD. Mr. Duncan is a 72-year-old white male patient of Dr. Smiley, was brought in on 11/09/2017 for evaluation of severe respiratory distress, orthopnea, hypoxemic respiratory failure, chest pain. The onset of symptoms was in the evening, with progressive shortness of breath, after patient went to bed. She told his spouse he couldn't get enough air in, he was on oxygen and he requested his to turn up his oxygen to 6 L from 4 L. He then started complaining of severe substernal chest pain, spouse noted he was cyanotic, EMS was called, and patient was placed on BiPAP on the way to the hospital. In the emergency department patient was in severe distress, with impending respiratory failure, hypertensive with a blood pressure of 215/101. The decision was made to intubate the patient and place him on mechanical ventilator. Chest x-ray showed pulmonary interstitial and alveolar edema. EKG showed normal sinus rhythm with nonspecific STT wave changes. His labs showed a CBC of 15.5, hemoglobin of 7.4, potassium 5.2, BUN of 33, creatinine is 1.3, lactic acid of 1.5, troponin 0.098, proBNP was elevated at 3210. Blood gas showed pO2 of 338, pCO2 of 64, pH of 7.24, consistent with acute hypercapnic respiratory failure, and this was done on 100% FiO2 post intubation. Patient was recently hospitalized for acute exacerbation of diastolic congestive heart failure, and exacerbation of chronic obstructive pulmonary disease. Patient also developed right pleural effusion, and underwent right thoracentesis by Dr. De Paz on 10/27 with removal of 650 mL of serosanguineous pleural fluid. Pleural fluid cytology was negative for any cytologically malignant cells, and it was transudative in nature, secondary to congestive heart failure. Pleural fluid cultures revealed no growth. Patient was diuresed, clinically improved, he was discharged home in stable condition on home oxygen nebulized treatments and diuretics. During his last admission we try to qualify the patient for home BiPAP on the basis of his COPD, however his blood gas did not qualify him for it. There were questionable episodes of atrial fibrillation during last admission, patient is currently in sinus, not on any anticoagulation in view of previous history of bleeding gastric ulcers, and underlying anemia. Other medical history close coronary artery disease with previous coronary artery bypass grafting 3 in 2006, peripheral vascular disease with bilateral stent placements, hypertension, hyperlipidemia, osteoporosis, migraines, previous long -term smoking history. His maintenance inhalers include Symbicort and albuterol. He is currently sedated, on mechanical ventilator, on the Brovana at 45 mics per kilo per minute, he is receiving IV Lasix at 40 mg every 8 hours. His is at the bedside, and provided much of the history. On 11/10/2017 patient seen in follow-up in intensive care unit. He is sedated, remains on mechanical ventilator, on assist-control mode ventilation, with a rate of 18, tida volume of 500, FiO2 40% and PEEP of 5. His Diprivan and has been off for about an hour, patient remains very lethargic, today's hemoglobin is 6.9, and the patient is receiving a unit of blood, no obvious source of bleeding, he does have underlying chronic anemia, slight decreased from yesterday's hemoglobin from 7.4. Hemoynamically stable, not on any vasopressor support, 0.9 at a rate of 10 ML per hour, no other drips. Today's chest x-ray has been reviewed and shows mild pulmonary congestion, slight blunting of the costophrenic angles, and improving right lower lobe infiltrate. Patient has been diuresed, and he is in negative 3900 net fluid balance over the last 24 hours. Bilateral lower extremity edema has improved, his weight is trending down. Lung sounds are clear to auscultation, and his rhythm on the monitor, there has not been any atrial fibrillation episodes this admission. Blood gases showed pO2 of 77, pCO2 of 40, and pH of 7.51, patient is developing mild degree of metabolic alkalosis, his creatinine has increased, to 1.5, and cardiology has adjusted his diuretics to once daily. His is at the bedside , updated on his condition On 11/11/2017 patient seen in follow-up on selective care unit. He is up on the commode, in no acute distress, he is awake alert and oriented 3, his pulse ox is 91-93% on 4 L per nasal cannula, he is afebrile, hemodynamically stable, his respirations are nonlabored, lung sounds reveal a few crackles at the left lower base, no wheezing, no rhonchi, today's chest x-ray has been reviewed and shows stable findings of mild pulmonary congestion and right lower lobe opacity. Clinically patient denies dyspnea, no fever or chills, no chest wall tenderness. WBC is 11.7, and his leukocytosis has been trending down, hemoglobin is 8.5, electrolytes are within normal limits, BUN is 37, creatinine is 1.6, patient remains on IV diuretics at 40 mg once daily. She remains on empiric antibiotics for possibility of right lower lobe pneumonia, and microbiology results showed sputum culture positive for gram-negative bacilli. We'll continue with current abiotic coverage, in the form of cefepime and Levaquin, patient remains afebrile. Patient was given 2 doses of IV Diamox yesterday, and today's labs show CO2 down to 28 from 31. Patient is seen today 11/12/2017 in follow-up on the selective care unit. He is currently resting quite comfortably in bed. He denies any worsening shortness of breath, cough or congestion. No chills or night sweats. His breathing is nearly back to his baseline. He is currently maintaining good O2 saturations in the upper 90s on 3 L/m per nasal cannula. He is afebrile. Hemodynamically stable. Sputum cultures positive for gram-negative bacilli. He is currently on cefepime and Levaquin. Bicarb any 7. Creatinine 1.26. He remains on IV diuretics. On 11/13/2017 the patient is looking well. He has no specific complaints. No significant shortness of breath is ambulating. No cough sputum production chest vessel wheezing. No change in mental status. I took this patient off IV antibiotics and put him on oral Augmentin. Hemoglobin stable at 8.7. The renal function is also stable with a creatinine of 1.3. The patient is on Lasix orally 40 mg by mouth daily. The sputum culture came back positive for achromobacter spp. Based on that, Levaquin was added to the regimen On 11/14/2017, patient is doing better, breathing a lot easier, he is about to be discharged home today. No cough no wheezing no shortness of breath. His last chest x-ray from 11/11/2017 is suggestive of right lower lobe pneumonia and atelectasis. Clinically however the patient is doing much better, his renal status is significantly improved creatinine is 1.15 today. His hemoglobin is 8.7 and WBC count is down to 7.1. Objective - Vital Signs Vital signs: Vital Signs Temp 96.7 F L 11/14/17 08:00 Pulse 64 11/14/17 11:43 Resp 16 11/14/17 11:38 BP 164/75 11/14/17 11:38 Pulse Ox 100 11/14/17 11:38 Intake & Output 11/13/17 11/14/17 11/14/17 18:59 06:59 18:59 Output Total 900 550 Balance -900 -550 Weight 57.1 kg Output: Urine 900 550 Other: Voiding Method Bedside Commode Bedside Commode Urinal Urinal # Voids 1 - Exam GENERAL EXAM: 72-year-old white male, cachectic, currently on 3 L per nasal cannula, in no acute distress, awake alert, oriented 3 HEAD: Normocephalic/atraumatic. EYES: Normal reaction of pupils, equal size. Conjunctiva pink, sclera white. NOSE: Clear with pink turbinates. THROAT: No erythema or exudates. NECK: No masses, no JVD, no thyroid enlargement, no adenopathy. CHEST: No chest wall deformity. Symmetrical expansion. LUNGS: Equal air entry with minimal crackles at the left lower base, wheeze, rhonchi or dullness. CVS: Regular rate and rhythm, normal S1 and S2, no gallops, no murmurs, no rubs ABDOMEN: Soft, nontender. No hepatosplenomegaly, normal bowel sounds, no guarding or rigidity. EXTREMITIES: No clubbing, no cyanosis, 2+ pulses and upper and lower extremities. No edema MUSCULOSKELETAL: Muscle strength and tone normal. SPINE: No scoliosis or deformity SKIN: No rashes CENTRAL NERVOUS SYSTEM: Sedated. No focal deficits, tone is normal in all 4 extremities. PSYCHIATRIC: Calm, alert and oriented. - Labs CBC & Chem 7: 11/13/17 06:17 11/14/17 05:59 Labs: Abnormal Lab Results - Last 24 Hours (Table) 11/12/17 11/14/17 Range/Units 06:28 05:59 BUN 25 H (9-20) mg/dL Glucose 138 H (74-99) mg/dL Iron 22 L (65-175) ug/dL Iron Saturation 7.21 L (15.00-50.00) Microbiology - Last 24 Hours (Table) 11/09/17 05:05 Blood Culture - Preliminary Blood No Growth after 120 hours 11/09/17 02:30 Gram Stain - Final Sputum Sputum Culture - Final Achromobacter xylos SS denit Assessment and Plan Assessment: #1. Acute on chronic hypoxemic and hypercapnic respiratory failure secondary to acute exacerbation of congestive heart failure, with previously diastolic dysfunction and the possibility of right lower lobe infiltrate, potentially healthcare acquired pneumonia. Sputum culture is positive for gram-negative bacilli which do not to be achromobacter and the patient is currently on a combination of Augmentin and Levaquin. #2. Recent hospitalization for acute exacerbation of COPD, and diastolic congestive heart failure. Patient had right thoracentesis with removal of 650 mL of transudative pleural fluid, and microbiology were negative #3. Elevated troponins #4. Acute kidney injury #5. History of coronary artery disease with previous coronary artery bypass grafting #6. Peripheral vascular disease with bilateral stents to the lower extremities #7. Anemia #8. Hypertension #9. Hyperlipidemia #10. Leukocytosis, which is actually improved from last admission possibly steroid related Plan: Continue diuretics in the form of Lasix, continue antibiotics, patient could be discharged home on Levaquin or Augmentin, and follow-up with me on outpatient basis in the next 7 days clear to be discharged home today. Time with Patient: Less than 30
--- NOTE | 2017-11-14 15:15 | P.PN ---
Subjective Progress Note Date: 11/14/17 This Is a 72-year-old gentleman with known history of coronary artery disease status post coronary bypass grafting surgery in 2007, chronic nicotine use, peripheral aspect disease, COPD, who was recently in the hospital with COPD exacerbation and heart failure exacerbation. Patient was discharged home and apparently returned to the hospital because he again was quite dyspneic. He was intubated and sedated initially on presentation here. Today the patient was followed up on the telemetry unit. He is in no acute distress today, awake alert and oriented 3, breathing is stable. White blood cell count 11.7, hemoglobin 8.5, BUN 37, creatinine 1.6. Patient continues to be on IV diuretics. His weight is down. 11/14/2017 Patient seen and examined this morning, breathing is much more stable. Anticipating discharge home today. Creatinine today 1.1, hemoglobin 8.7, WBC down to 7.1. Objective - Vital Signs Vital signs: Vital Signs Temp 96.7 F L 11/14/17 08:00 Pulse 64 11/14/17 11:43 Resp 16 11/14/17 11:38 BP 164/75 11/14/17 11:38 Pulse Ox 100 11/14/17 11:38 Intake & Output 11/13/17 11/14/17 11/14/17 18:59 06:59 18:59 Intake Total 340 Output Total 900 550 400 Balance -900 -550 -60 Weight 57.1 kg Intake: Oral 340 Output: Urine 900 550 400 Other: Voiding Method Bedside Commode Bedside Commode Urinal Urinal # Voids 1 - Exam PHYSICAL EXAMINATION: GENERAL: 72-year-old gentleman in no acute distress at the time of my examination HEENT: Head is atraumatic, normocephalic. Pupils equal, round. Sclera anicteric. Conjunctiva are clear. Mucous membranes of the mouth are moist. Neck is supple. There is no elevated jugular venous pressure. No carotid bruit is heard. HEART EXAMINATION: Heart S1, S2 normal. No murmur or gallop heard. CHEST EXAMINATION: Reveal crackles to bilateral bases. ABDOMEN: Soft, nontender. Bowel sounds are heard. No organomegaly noted. EXTREMITIES: 2+ peripheral pulses with 1+ evidence of peripheral edema and no calf tenderness noted. NEUROLOGIC patient is awake, alert and oriented X3. . - Labs CBC & Chem 7: 11/13/17 06:17 11/14/17 05:59 Labs: Abnormal Lab Results - Last 24 Hours (Table) 11/12/17 11/14/17 Range/Units 06:28 05:59 BUN 25 H (9-20) mg/dL Glucose 138 H (74-99) mg/dL Iron 22 L (65-175) ug/dL Iron Saturation 7.21 L (15.00-50.00) Microbiology - Last 24 Hours (Table) 11/09/17 05:05 Blood Culture - Preliminary Blood No Growth after 120 hours 11/09/17 02:30 Gram Stain - Final Sputum Sputum Culture - Final Achromobacter xylos SS denit Assessment and Plan Plan: Assessment and plan #1 respiratory failure with evidence of pulmonary edema #2 COPD exacerbation #3 coronary artery disease with prior bypass surgery #4 chronic tobacco use #5 hypertension #6 hyperlipidemia Plan Patient is currently on by mouth diuretics. He may be able to be discharged home once cleared by primary. We'll make him a follow-up appointment in the office post discharge. DNP note has been reviewed, I agree with a documented findings and plan of care. Patient was seen and examined.
--- NOTE | 2017-11-15 06:39 | DS ---
DISCHARGE SUMMARY DATE OF ADMISSION: 11/09/2017 DATE OF DISCHARGE: 11/14/2017 FINAL DIAGNOSES: 1. Acute on chronic congestive heart failure exacerbation from diastolic dysfunction. Ejection fraction 55% to 60%, now euvolemic. 2. Pneumonia from Achromobacter xylose, present on admission. 3. Moderate mitral regurgitation, nonrheumatic. 4. Coronary artery disease prior history of stent and bypass. 5. Gastroesophageal reflux disease. 6. Essential hypertension, uncontrolled. 7. Hyperlipidemia. 8. Primary osteoarthritis. 9. Peripheral arterial disease. 10.Hiatal hernia. 11.Chronic tinnitus. 12.Chronic kidney disease stage III from nephrosclerosis. 13.Hypertensive heart disease. CONSULTATIONS: Dr. Mellissa Leroy from Cardiology; Dr. Denson from Pulmonary; Dr. Arcos from Cardiology. HOSPITAL COURSE: This patient presented with short of breath. Patient recently had right-sided thoracentesis carried out. The patient this time again was found to be in congestive heart failure and pneumonia. Sputum culture came back as above. The patient was diuresed well. The patient had acute renal failure. Creatinine was up to 1.6 did come down to 1.15. The patient is doing much better by the time of discharge. ON EXAM: LUNGS: Decreased breath sounds. CARDIOVASCULAR: First and second sounds normal. Discussion and discharge planning more than 35 minutes. DISCHARGE MEDICATIONS: 1. Lipitor 80 mg a day. 2. Everson 10 one tablet q.6 p.r.n. 3. Aspirin 81 mg a day. 4. Ventolin 1 to 2 puffs q.6 p.r.n. 5. Symbicort 160/4.5 two puffs b.i.d. 6. Elemental iron 325 p.o. b.i.d. 7. Lasix 40 mg p.o. daily. 8. Protonix 40 mg b.i.d. 9. Norvasc 10 mg p.o. daily. 10.DuoNeb q.6. 11.Levaquin 250 mg a day for 7 days. 12.Lopressor 100 mg p.o. b.i.d. 13.Senokot S 1 tablet p.o. daily. 14.Aldactone 25 mg a day. 15.Hydralazine 100 mg p.o. b.i.d. Follow up with Dr. Arcos on 11/28/2017; Dr. Connor Smiley in [place] on 11/23/2017; Dr. Denson on 11/17/2017. Home oxygen to continue. Discussion and discharge planning more than 35 minutes. MMODL / IJN: [id number] /
== END 2017-11-14 15:24 | disposition home or self-care (01) | DRG 208 ==
LOC: EC 01:55 → 6ICU 03:43 → 6SEL 11-11 02:41
PROVIDERS: ADMIT Hospitalist; ATTEND Hospitalist
PROC: 5A1945Z Respiratory Ventilation, 24-96 Consecutive Hours (ICD-10-PCS; principal; 2017-11-09)
PROC: 0BH17EZ Insertion of Endotracheal Airway into Trachea, Via Natural or Artificial Opening (ICD-10-PCS; 2017-11-09)
DX: J96.22 Acute and chronic respiratory failure with hypercapnia (principal); I50.33 Acute on chronic diastolic (congestive) heart failure; J15.6 Pneumonia due to other Gram-negative bacteria; E87.3 Alkalosis; I13.0 Hypertensive heart and chronic kidney disease with heart failure and stage 1 through stage 4 chronic kidney disease, or unspecified chronic kidney disease; J44.0 Chronic obstructive pulmonary disease with (acute) lower respiratory infection; J44.1 Chronic obstructive pulmonary disease with (acute) exacerbation; N17.9 Acute kidney failure, unspecified; R64 Cachexia; Z68.1 Body mass index [BMI] 19.9 or less, adult; J96.21 Acute and chronic respiratory failure with hypoxia; F17.290 Nicotine dependence, other tobacco product, uncomplicated; Y95 Nosocomial condition; D64.9 Anemia, unspecified; E11.22 Type 2 diabetes mellitus with diabetic chronic kidney disease; E11.51 Type 2 diabetes mellitus with diabetic peripheral angiopathy without gangrene; E78.5 Hyperlipidemia, unspecified; G89.29 Other chronic pain; H93.19 Tinnitus, unspecified ear; I25.10 Atherosclerotic heart disease of native coronary artery without angina pectoris; I25.2 Old myocardial infarction; I34.0 Nonrheumatic mitral (valve) insufficiency; K21.9 Gastro-esophageal reflux disease without esophagitis; K44.9 Diaphragmatic hernia without obstruction or gangrene; M19.91 Primary osteoarthritis, unspecified site; M81.0 Age-related osteoporosis without current pathological fracture; N18.3 Chronic kidney disease, stage 3 (moderate); Z79.51 Long term (current) use of inhaled steroids; Z79.82 Long term (current) use of aspirin; Z79.899 Other long term (current) drug therapy; Z86.010 Personal history of colon polyps; Z87.11 Personal history of peptic ulcer disease; Z95.1 Presence of aortocoronary bypass graft; Z99.81 Dependence on supplemental oxygen; Z98.42 Cataract extraction status, left eye; Z98.41 Cataract extraction status, right eye; T38.0X5A Adverse effect of glucocorticoids and synthetic analogues, initial encounter; D72.829 Elevated white blood cell count, unspecified; R74.8 Abnormal levels of other serum enzymes; M54.5 Low back pain; Z95.828 Presence of other vascular implants and grafts; G43.909 Migraine, unspecified, not intractable, without status migrainosus; Z95.5 Presence of coronary angioplasty implant and graft
CPT/HCPCS: 31500; 36415; 36600; 43753; 51702; 71045; 80048; 80053; 81003; 82550; 82553; 82728; 82805; 83540; 83550; 83605; 83735; 83880; 84100; 84484; 85025; 85610; 85730; 86850; 86900; 86901; 86920; 87040; 87070; 87077; 87086; 87186; 87205; 93005; 94002; 94003; 94640; 96374; 96375; 99291

== ENCOUNTER → 2017-12-16 | Outpatient (CLI) | payer MEDICARE, BC ==
--- NOTE | 2017-12-16 09:36 | US ---
EXAMINATION TYPE: US chest DATE OF EXAM: 12/16/2017 COMPARISON: chest XR November 11, 2017, prior ultrasound October 26, 2017 CLINICAL HISTORY: J90 Pleural Effusion. TECHNIQUE: Targeted ultrasound of the posterior lower bilateral hemithoraces EXAM MEASUREMENTS: Right Pleural Effusion pocket size: 7.6 cm Right skin surface to fluid distance: 2.6 cm Left Pleural Effusion pocket size: 6.5 cm Left skin surface to fluid distance: 2.7 cm Right side was marked for possible thoracentesis outside the dept. Left side was marked for possible thoracentesis outside the dept. Pulmonologists are able to review the images in the patient?s EMR. IMPRESSIONS: There is moderate to large size right and small to moderate-sized left pleural effusion seen on images saved.
[2017-12-16 16:16] LABS: Appearance,BF Hazy; Color,BF Yellow
[2017-12-16 16:17] LABS: Nucleated Cells, Body Fluid 90 /uL; RBC, Body Fluid 3585 /uL
[2017-12-16 16:21] LABS: Mononuclear WBC,Body Fluid 93 %; Polynuclear WBC,Body Fluid 7 %; Total Cells Counted,Body Fluid 100
[2017-12-16 19:14] LABS: Total Protein, Body Fluid 438.5 mg/dL
== END | disposition home or self-care (01) ==
LOC: RADUSWWP 09:10
PROVIDERS: ATTEND Internal Medicine
DX: J90 Pleural effusion, not elsewhere classified (principal)
CPT/HCPCS: 76604; 82945; 83615; 84157; 87070; 87205; 89050

== ENCOUNTER 2018-01-10 16:20 | Inpatient (IN) | payer MEDICARE, BC ==
[2018-01-10 17:28] LABS: Anisocytosis Slight; Basophils % (A) 0 %; Eosinophils # (A) 0.1 k/uL (0-0.7); Eosinophils % (A) 1 %; HCT 33.1 % (39.0-53.0); HGB 10.2 gm/dL (13.0-17.5); Lymphocytes # (A) 1.4 k/uL (1.0-4.8); Lymphocytes % (A) 14 %; MCH 26.9 pg (25.0-35.0); MCHC 30.9 g/dL (31.0-37.0); MCV 87.1 fL (80.0-100.0); Mean Platelet Volume 6.3; Monocytes # (A) 0.5 k/uL (0-1.0); Monocytes % (A) 5 %; Neutrophils % (A) 78 %; Platelet Count 205 k/uL (150-450); RDW 18.9 % (11.5-15.5); WBC 10.3 k/uL (3.8-10.6)
[2018-01-10 17:36] LABS: Calcium 9.5 mg/dL (8.4-10.2); Potassium 3.3 mmol/L (3.5-5.1); Total Bilirubin 0.5 mg/dL (0.2-1.3); Total Protein 6.7 g/dL (6.3-8.2)
[2018-01-10] MEDS ORDERED: IPRATROPIUM-ALBUTEROL 3 ML NEB INHALATION STA ×2 (17:46→20:31)
[2018-01-10 17:47] LABS: Creatine Kinase MB 0.9 ng/mL (0.0-2.4)
[2018-01-10 17:52] LABS: Troponin I 0.075 ng/mL (0.000-0.034)
--- NOTE | 2018-01-10 17:56 | ED ---
Chest Pain HPI - General Chief Complaint: Chest Pain Stated Complaint: COPD Time Seen by Provider: 01/10/18 17:00 Source: patient, family, RN notes reviewed Mode of arrival: wheelchair Limitations: no limitations - History of Present Illness Initial Comments: This is a 72-year-old male with a history of heart disease COPD CHF who presents with complaints of acid shortness of breath and chest pain earlier today. She's not sure which came on first the pain was midsternal nonradiating dull and achy increasing with movements and deep breathing he has had a slight cough he uses nebulizer at home he states he has worked as well today. He denies any overt fevers chills nausea vomiting sweats. He does have a prior history cardiac arrest his brought him in for evaluation. Additionally he' s had some edema to his lower extremity on the left which has not been there earlier MD Complaint: chest pain, other - Related Data Home Medications Medication Instructions Recorded Confirmed Hydrocodone/Acetaminophen 1 tab PO Q6HR PRN 12/25/13 01/10/18 [Hydrocodone/Acetaminophen 10-325] Ipratropium-Albuterol Nebulize 3 ml INHALATION RT-Q6H 11/09/17 01/10/18 [Duoneb 0.5 mg-3 mg/3 ml Soln] Aspirin 325 mg PO DAILY 01/10/18 01/10/18 Atorvastatin Calcium [Lipitor] 40 mg PO DAILY 01/10/18 01/10/18 Budesonide-Formot 160-4.5 Mcg 2 puff INHALATION RT-BID 01/10/18 01/10/18 [Symbicort 160-4.5 Mcg Inhaler] Furosemide [Lasix] 40 mg PO BID 01/10/18 01/10/18 Metoprolol Tartrate [Lopressor] 50 mg PO TID 01/10/18 01/10/18 Omeprazole [PriLOSEC] 40 mg PO DAILY 01/10/18 01/10/18 hydrALAZINE HCL [Apresoline] 50 mg PO TID 01/10/18 01/10/18 Previous Rx's Medication Instructions Recorded Albuterol Inhaler [Ventolin Hfa 1 - 2 puff INHALATION RT-Q6H PRN 10/31/17 Inhaler] #1 inhaler Ferrous Sulfate [Iron (65 MG 325 mg PO BID-W/MEALS #60 tab 10/31/17 Elemental)] amLODIPine [Norvasc] 10 mg PO DAILY #60 tab 10/31/17 Allergies Allergy/AdvReac Type Severity Reaction Status Date / Time No Known Allergies Allergy Verified 01/10/18 17:22 Review of Systems ROS Statement: Those systems with pertinent positive or pertinent negative responses have been documented in the HPI. ROS Other: All systems not noted in ROS Statement are negative. Past Medical History Past Medical History: Coronary Artery Disease (CAD), Chest Pain / Angina, Heart Failure, COPD, GERD/Reflux, GI Bleed, Hyperlipidemia, Hypertension, Myocardial Infarction (ME), Osteoarthritis (OA), Pneumonia, Vascular Disorder Additional Past Medical History / Comment(s): Pneumonia/sepsis after appendectomy, chronic back pain, migraines, occ "heart fluttering", SOB with activity, PAD, hiatal hernia, gastric ulcer, lower GI bleed, colon polyp, hemorrhoids, bilateral tinnitis, past elbow/rib fractures. Last Myocardial Infarction Date:: 2006 History of Any Multi-Drug Resistant Organisms: None Reported Past Surgical History: Appendectomy, Coronary Bypass/CABG, Heart Catheterization With Stent Additional Past Surgical History / Comment(s): 07/2017 EGD/COLONOSCOPY WITH POLYPECTOMY, TRIPLE CABG 2006. PCI/STENT IN 2000. STENTS PAT LEGS. EXC bilat CATARACT 05/25/17. PAIN CLINIC PROCEDURES Past Anesthesia/Blood Transfusion Reactions: No Reported Reaction Date of Last Stent Placement:: 2000 Past Psychological History: No Psychological Hx Reported Smoking Status: Former smoker Past Alcohol Use History: None Reported Past Drug Use History: None Reported - Past Family History Mother Family Medical History: Cancer, Osteoarthritis (OA) General Exam - General Exam Comments Initial Comments: This is a well-developed well-nourished awake alert oriented 3 male Limitations: no limitations General appearance: alert, in no apparent distress Head exam: Present: atraumatic, normocephalic, normal inspection Eye exam: Present: normal appearance, PERRL, EOMI. Absent: scleral icterus, conjunctival injection, periorbital swelling ENT exam: Present: normal exam, mucous membranes moist Neck exam: Present: normal inspection. Absent: tenderness, meningismus, lymphadenopathy Respiratory exam: Present: decreased breath sounds. Absent: respiratory distress, wheezes, rales, rhonchi, stridor Cardiovascular Exam: Present: regular rate, normal rhythm, normal heart sounds. Absent: systolic murmur, diastolic murmur, rubs, gallop, clicks GI/Abdominal exam: Present: soft, normal bowel sounds. Absent: distended, tenderness, guarding, rebound, rigid Extremities exam: Present: full ROM, normal capillary refill, pedal edema. Absent: tenderness, joint swelling, calf tenderness Back exam: Present: normal inspection Neurological exam: Present: alert, oriented X3, CN II-XII intact Psychiatric exam: Present: normal affect, normal mood Skin exam: Present: warm, dry, intact, normal color. Absent: rash Course Vital Signs 01/10/18 01/10/18 01/10/18 16:31 17:40 18:01 Temperature 98.5 F Pulse Rate 82 82 Respiratory 18 20 Rate Blood Pressure 125/61 O2 Sat by Pulse 100 Oximetry 01/10/18 01/10/18 01/10/18 18:08 18:17 18:25 Temperature Pulse Rate 82 86 Respiratory 20 Rate Blood Pressure 162/71 176/75 O2 Sat by Pulse 97 Oximetry - Reevaluation(s) Reevaluation #1: 01/10/18 18:54 Reevaluation after treatment reveals patient still some improvement in his aeration. Chest Pain MDM - MDM I did review the imaging and report lingular infiltrate also small bilateral posterior pleural effusions patient has no pain at this time he will be admitted does have an elevated troponin and evidence of CHF did discuss findings with patient has . Critical Care Time Critical Care Time: Yes Critical Care Time: 32 minutes of critical care time which includes initial presentation with history physical labs x-rays reevaluation patient responsive therapy discuss with the main physician discussed with family regarding findings admission orders neck mentation the above Disposition Clinical Impression: Acute exacerbation of CHF (congestive heart failure), Acute exacerbation of chronic obstructive airways disease, Chest pain, Elevated troponin Disposition: ADMITTED IP TO THIS HOSP Condition: Stable Referrals: Víctor Smiley MD [Primary Care Provider] - 1-2 days
[2018-01-10] MEDS ORDERED: MAGNESIUM SULFATE-D5W PMX 1 GM in DEXTROSE/WATER 1 100ML.BAG IVPB ONE (18:14)
[2018-01-10] MEDS ORDERED: FUROSEMIDE 10 MG/ML 4 ML VIAL IV STA (18:14)
--- NOTE | 2018-01-10 18:30 | XR ---
EXAMINATION: XR chest 2V DATE AND TIME: 01/10/2018 5:29 PM CLINICAL INDICATION: sob TECHNIQUE: PA and lateral COMPARISON: 12/16/2017 FINDINGS: There are sternal sutures and mediastinal clips and EKG leads noted. The cardiac silhouette is moderately enlarged, unchanged. The remainder of the mediastinal silhouette is unremarkable. There appears to be partial consolidation within the lingula. The lungs are otherwise clear. The pleural spaces are positive for bilateral small pleural effusions posteriorly. The skeletal structures and soft tissues are negative for acute findings. IMPRESSION: 1. Lingular infiltrate, new since the prior study; can correlate with pneumonia. 2. Small bilateral pleural effusions posteriorly.
[2018-01-10] MEDS ORDERED: FUROSEMIDE 10 MG/ML 4 ML VIAL IV SCH (19:00)
[2018-01-10] MEDS ORDERED: methylPREDNISolone SOD SUCCI 125 MG/2 ML VIAL IV STA (19:02)
[2018-01-10] MEDS ORDERED: POTASSIUM CHLORIDE ER 20 MEQ TAB.ER PO STA (19:04)
[2018-01-10] MEDS: IPRATROPIUM-ALBUTEROL 3 ML NEB INHALATION SCH (20:38)
[2018-01-10] MEDS ORDERED: FUROSEMIDE 40 MG TAB PO SCH (21:00)
[2018-01-10] MEDS: NITROGLYCERIN OINT 1 INCH/GM PACKET TOPICAL SCH (21:23)
[2018-01-10] MEDS: METOPROLOL TARTRATE 50 MG TAB PO SCH (21:23)
[2018-01-10] MEDS: hydrALAZINE HCL 50 MG TAB PO SCH (21:23)
[2018-01-10] MEDS: methylPREDNISolone SOD SUCCI 125 MG/2 ML VIAL IV SCH (22:44)
[2018-01-10] MEDS: FUROSEMIDE 10 MG/ML 4 ML VIAL IV SCH (22:45)
[2018-01-11] MEDS: IPRATROPIUM-ALBUTEROL 3 ML NEB INHALATION SCH ×4 (02:11→19:29)
[2018-01-11] MEDS: methylPREDNISolone SOD SUCCI 125 MG/2 ML VIAL IV SCH ×4 (05:45→23:06)
[2018-01-11] MEDS: PANTOPRAZOLE 40 MG TABLET PO SCH (06:39)
[2018-01-11] MEDS: FERROUS SULFATE 325 MG TAB PO SCH ×2 (06:39→19:53)
[2018-01-11 08:31] LABS: Calcium 9.4 mg/dL (8.4-10.2); Potassium 3.8 mmol/L (3.5-5.1)
[2018-01-11] MEDS: amLODIPine 10 MG TAB PO SCH (08:42)
[2018-01-11 08:43] LABS: Anisocytosis Slight; Basophils % (A) 0 %; Eosinophils % (A) 0 %; HCT 30.8 % (39.0-53.0); HGB 9.4 gm/dL (13.0-17.5); Hypochromasia Slight; Lymphocytes # (A) 0.4 k/uL (1.0-4.8); Lymphocytes % (A) 5 %; MCH 26.8 pg (25.0-35.0); MCHC 30.4 g/dL (31.0-37.0); MCV 88.3 fL (80.0-100.0); Mean Platelet Volume 6.7; Monocytes # (A) 0.2 k/uL (0-1.0); Monocytes % (A) 2 %; Neutrophils # (A) 7.5 k/uL (1.3-7.7); Neutrophils % (A) 92 %; Platelet Count 193 k/uL (150-450); RBC 3.49 m/uL (4.30-5.90); WBC 8.2 k/uL (3.8-10.6)
[2018-01-11] MEDS: NITROGLYCERIN OINT 1 INCH/GM PACKET TOPICAL SCH ×4 (08:43→21:45)
[2018-01-11] MEDS: METOPROLOL TARTRATE 50 MG TAB PO SCH ×3 (08:43→21:45)
[2018-01-11] MEDS: FUROSEMIDE 10 MG/ML 4 ML VIAL IV SCH ×3 (08:43→23:07)
[2018-01-11] MEDS: ATORVASTATIN 40 MG TAB PO SCH (08:43)
[2018-01-11] MEDS: hydrALAZINE HCL 50 MG TAB PO SCH ×3 (08:43→21:45)
[2018-01-11] MEDS: HYDROcodone/APAP 10-325MG 1 EACH TAB PO PRN (08:44)
[2018-01-11] MEDS ORDERED: ASPIRIN 325 MG TAB PO SCH (09:00)
[2018-01-11] MEDS ORDERED: HEPARIN SODIUM,PORCINE 5,000 UNIT/ML 1 ML VIAL IV ONE (09:06)
[2018-01-11] MEDS ORDERED: HEPARIN SODIUM,PORCINE 5,000 UNIT/ML 1 ML VIAL IV PRN (09:06)
--- NOTE | 2018-01-11 10:03 | CONS ---
CONSULTATION CHIEF COMPLAINT: Chest pain. Antonio Duncan is a 72-year-old gentleman with history of coronary artery disease, COPD, congestive heart failure, dyslipidemia and hypertension who is admitted to hospital with chest pain. He describes it as mild to moderate intensity of chest discomfort that is in the left precordial area, gets worse with deep inspiration. Patient has known coronary artery disease and has had prior bypass surgery. He also has peripheral arterial disease and has had intervention. The patient was admitted to hospital with similar symptoms in October of 2017 and at that time an echocardiogram showed normal LV systolic function with moderate mitral and mild tricuspid regurgitation. PAST MEDICAL HISTORY: Significant for COPD, coronary artery disease, status post CABG, peripheral vascular disease. MEDICATIONS INCLUDE: Hydralazine 50 t.i.d., Norvasc 10 q. daily, Prilosec 40 q. daily, Lopressor 50 t.i.d., nebulizers, Lasix, iron, Symbicort, Lipitor, aspirin and albuterol. ALLERGIES: There are no known drug allergies. FAMILY HISTORY: Negative for premature coronary artery disease. SOCIAL HISTORY: Negative for smoking, EtOH abuse, or drug abuse. REVIEW OF SYSTEMS: HEENT is unremarkable. CARDIAC: As described above. RESPIRATORY: As described above. GI: Negative. GENITOURINARY: Negative. ALLERGY/IMMUNOLOGY: Negative. SKIN: Negative. MUSCULOSKELETAL: Significant for arthritis. PSYCHOSOCIAL: Negative. ENDOCRINE: Negative. DERM: Negative. CONSTITUTIONAL: Negative. ONCOLOGICAL: Negative. Rest of the system review is not relevant. PHYSICAL EXAM: Patient is comfortable at rest. Heart rate is 90 beats per minute. Blood pressure is 160/60, respiratory rate is 18. There is no jugular venous distention. Chest exam reveals diffuse bilateral rhonchi. Heart exam reveals first and second heart sounds and a systolic murmur at the left lower sternal border. Abdomen is soft. Exam of extremities did not reveal any edema. Exam of extremities reveals 1+ edema. Peripheral pulses are felt lab showed that the hemoglobin is 10.2, platelet count is 205. Potassium is 3.8, BUN is 27, creatinine is 1.3. Three sets of troponins are mildly elevated at 0.07, 0.05 and 0.11. Patient at last admission also had mildly elevated troponin. EKG shows atrial fibrillation with nonspecific ST-T wave changes. ASSESSMENT: 1. Chest pain. 2. Coronary artery disease, status post coronary artery bypass grafting. 3. History of chronic obstructive pulmonary disease. 4. Mildly elevated troponins. 5. Coronary artery disease, status post CABG. PLAN: Patient's chest discomfort sounds pleuritic in nature. I will obtain a D-dimer to rule out pulmonary embolism. Patient has anemia and has a history of ulcer and will have to assess his suitability for long-term anticoagulation. I will start him on IV heparin and see how he tolerates it. The troponin elevation may simply be due to severe COPD hypoxia and patient chest discomfort does not sound anginal in nature. Will obtain an echocardiogram. If he has no wall motion abnormalities, we might consider invasive angiography. AMERICAL / IJN: [id number] /
[2018-01-11 10:25] LABS: D-Dimer 0.84 mg/L FEU (<0.60); Prothrombin Time 9.9 sec (9.0-12.0)
[2018-01-11 10:33] LABS: Partial Thromboplastin Time 21.8 sec (22.0-30.0)
[2018-01-11] MEDS: HEPARIN SOD,PORK IN 0.45% NACL 25,000 UNIT in 0.45% NACL 1 500ML.BAG IV SCH (10:51)
[2018-01-11 11:06] LABS: Anisocytosis Slight; Basophils % (A) 0 %; Eosinophils % (A) 0 %; HCT 31.3 % (39.0-53.0); HGB 9.9 gm/dL (13.0-17.5); Hypochromasia Slight; Lymphocytes # (A) 0.4 k/uL (1.0-4.8); Lymphocytes % (A) 5 %; MCH 27.6 pg (25.0-35.0); MCHC 31.6 g/dL (31.0-37.0); MCV 87.4 fL (80.0-100.0); Mean Platelet Volume 7.4; Monocytes # (A) 0.2 k/uL (0-1.0); Monocytes % (A) 2 %; Neutrophils # (A) 8.3 k/uL (1.3-7.7); Neutrophils % (A) 93 %; Platelet Count 212 k/uL (150-450); RBC 3.58 m/uL (4.30-5.90); RDW 18.8 % (11.5-15.5)
[2018-01-11 11:19] VITALS: BMI 20.5
--- NOTE | 2018-01-11 12:13 | P.HPIM ---
History of Present Illness H&P Date: 01/11/18 Chief Complaint: Shortness of breath The patient is a 72 yo M with the PMH of CAD s/p CABG, persistent Afib ( previously on AC which was DCed several years ago due to UGIB), diastolic CHF, HTN, and HLD who presented to the ED w/ complaints of substernal and L sided chest pain w/ associated SOB of 1 day duration. The pain is sharp and pressure- like, pleuritic in nature, non-exertional, constant, and non-radiating. He endorsed LLE edema on-going for past several days but otherwise denied LE pain, palpitations, cough, fever, chills, wheezing, nausea, vomiting, diarrhea, headache, visual disturbances, recent travel, sick contacts. Of note, the patient was admitted to [facility] from 11/09/17 to 11/13/17 for hypoxic and hypercapnic respiratory failure due to CHF and COPD exacerbation and suspected CAP. The patient notes that his current symptoms are different from the ones during the prior episode. Review of Systems Pertinent positives and negatives as discussed in HPI, a complete review of systems was performed and all other systems are negative. Past Medical History Past Medical History: Coronary Artery Disease (CAD), Chest Pain / Angina, Heart Failure, COPD, GERD/Reflux, GI Bleed, Hyperlipidemia, Hypertension, Myocardial Infarction (VT), Osteoarthritis (OA), Pneumonia, Vascular Disorder Additional Past Medical History / Comment(s): Pneumonia/sepsis after appendectomy, chronic back pain, migraines, occ "heart fluttering", SOB with activity, PAD, hiatal hernia, gastric ulcer, lower GI bleed, colon polyp, hemorrhoids, bilateral tinnitis, past elbow/rib fractures. Last Myocardial Infarction Date:: 2006 History of Any Multi-Drug Resistant Organisms: None Reported Past Surgical History: Appendectomy, Coronary Bypass/CABG, Heart Catheterization With Stent Additional Past Surgical History / Comment(s): 07/2017 EGD/COLONOSCOPY WITH POLYPECTOMY, TRIPLE CABG 2006. PCI/STENT IN 2000. STENTS PAT LEGS. EXC bilat CATARACT 05/25/17. PAIN CLINIC PROCEDURES Past Anesthesia/Blood Transfusion Reactions: No Reported Reaction Date of Last Stent Placement:: 2000 Past Psychological History: No Psychological Hx Reported Additional Psychological History / Comment(s): Pt resides with his spouse. He uses a cane to ambulate. He drives. 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 Past Drug Use History: None Reported - Past Family History Mother Family Medical History: Cancer, Osteoarthritis (OA) Medications and Allergies Home Medications Medication Instructions Recorded Confirmed Type Hydrocodone/Acetaminophen 1 tab PO Q6HR PRN 12/25/13 01/10/18 History [Hydrocodone/Acetaminophen 10-325] Albuterol Inhaler [Ventolin Hfa 1 - 2 puff INHALATION RT-Q6H PRN 10/31/17 Rx Inhaler] #1 inhaler Ferrous Sulfate [Iron (65 MG 325 mg PO BID-W/MEALS #60 tab 10/31/17 01/10/18 Rx Elemental)] amLODIPine [Norvasc] 10 mg PO DAILY #60 tab 10/31/17 01/10/18 Rx Ipratropium-Albuterol Nebulize 3 ml INHALATION RT-Q6H 11/09/17 01/10/18 History [Duoneb 0.5 mg-3 mg/3 ml Soln] Aspirin 325 mg PO DAILY 01/10/18 01/10/18 History Atorvastatin Calcium [Lipitor] 40 mg PO DAILY 01/10/18 01/10/18 History Budesonide-Formot 160-4.5 Mcg 2 puff INHALATION RT-BID 01/10/18 01/10/18 History [Symbicort 160-4.5 Mcg Inhaler] Furosemide [Lasix] 40 mg PO BID 01/10/18 01/10/18 History Metoprolol Tartrate [Lopressor] 50 mg PO TID 01/10/18 01/10/18 History Omeprazole [PriLOSEC] 40 mg PO DAILY 01/10/18 01/10/18 History hydrALAZINE HCL [Apresoline] 50 mg PO TID 01/10/18 01/10/18 History Allergies Allergy/AdvReac Type Severity Reaction Status Date / Time No Known Allergies Allergy Verified 01/10/18 17:22 Physical Exam Vitals: Vital Signs Temp Pulse Pulse Resp BP BP Pulse Ox 01/11/18 08:09 96 01/11/18 08:00 90 18 164/66 100 01/11/18 07:52 90 01/11/18 04:00 96.1 F L 105 H 21 169/76 97 01/11/18 02:26 106 H 01/11/18 02:14 86 01/10/18 22:47 98.6 F 82 18 152/67 87 L 01/10/18 20:52 82 94 L 01/10/18 20:47 98.7 F 96 20 163/98 96 01/10/18 20:38 80 01/10/18 20:16 98.5 F 94 18 166/59 92 L 01/10/18 19:34 76 18 177/79 92 L 01/10/18 18:25 176/75 01/10/18 18:17 86 20 162/71 97 01/10/18 18:08 82 01/10/18 18:01 82 01/10/18 17:40 20 01/10/18 16:31 98.5 F 82 18 125/61 100 Intake and Output 01/10/18 01/11/18 01/11/18 22:59 06:59 14:59 Output Total 650 1 Balance -650 -1 Output: Urine 650 1 Other: Voiding Method Urinal # Voids 1 350 Weight 56.699 kg 59.6 kg 59.6 kg General: [non toxic], [no distress], [appears at stated age], [normal weight], on 3L NC Derm: [no unusual rashes/lesions] [no unusual ecchymoses], [warm], [dry] Head: [atraumatic], [normocephalic], [symmetric] Eyes: [EOMI], [no lid lag], [anicteric sclera], [pupils equal round reactive to light] ENT: [Nose and ears atraumatic], [no thrush], [no pharyngeal erythema] Neck: [No thyromegaly], [no cervical lymphadenopathy], [trachea midline], [ supple] Mouth: [no lip lesion], [mucus membranes moist] Cardiovascular: [S1S2 irregularly irregular], [no murmur], [positive posterior tibial pulse bilateral], [no edema], [capillary refill less than 2 seconds], well healed sternotomy scar, no chest tenderness Lungs: [CTA bilateral], [no rhonchi, no rales] , [no accessory muscle use] Abdominal: [soft], [ nontender to palpation], [no guarding], [no appreciable organomegaly], [normal bowel sounds] Ext: [no gross muscle atrophy], trace LE edema pat, no tenderness, or erythema [ muscle strength 5 out of 5 in all 4 extremities grossly], [no contractures], Neuro: [CN II-XI grossly intact], [light touch intact all 4 extremities], [ finger to nose within normal limits], Psych: [Alert], [oriented], [appropriate affect] Results CBC & Chem 7: 01/11/18 09:28 01/11/18 05:27 Labs: Abnormal Lab Results - Last 24 Hours (Table) 01/10/18 01/10/18 01/10/18 Range/Units 16:55 16:55 16:55 RBC 3.80 L (4.30-5.90) m/uL Hgb 10.2 L (13.0-17.5) gm/dL Hct 33.1 L (39.0-53.0) % MCHC 30.9 L (31.0-37.0) g/dL RDW 18.9 H (11.5-15.5) % Neutrophils # 8.0 H (1.3-7.7) k/uL Lymphocytes # (1.0-4.8) k/uL APTT (22.0-30.0) sec D-Dimer (<0.60) mg/L FEU Potassium 3.3 L (3.5-5.1) mmol/L Carbon Dioxide 31 H (22-30) mmol/L BUN 21 H (9-20) mg/dL Creatinine (0.66-1.25) mg/dL Glucose 104 H (74-99) mg/dL ALT 18 L (21-72) U/L Troponin I 0.075 H* (0.000-0.034) ng/mL 01/10/18 01/11/18 01/11/18 Range/Units 23:21 05:27 05:27 RBC (4.30-5.90) m/uL Hgb (13.0-17.5) gm/dL Hct (39.0-53.0) % MCHC (31.0-37.0) g/dL RDW (11.5-15.5) % Neutrophils # (1.3-7.7) k/uL Lymphocytes # (1.0-4.8) k/uL APTT (22.0-30.0) sec D-Dimer (<0.60) mg/L FEU Potassium (3.5-5.1) mmol/L Carbon Dioxide 32 H (22-30) mmol/L BUN 27 H (9-20) mg/dL Creatinine 1.32 H (0.66-1.25) mg/dL Glucose 194 H (74-99) mg/dL ALT (21-72) U/L Troponin I 0.059 H* 0.117 H* (0.000-0.034) ng/mL 01/11/18 01/11/18 01/11/18 Range/Units 05:27 09:28 09:28 RBC 3.49 L 3.58 L (4.30-5.90) m/uL Hgb 9.4 L 9.9 L (13.0-17.5) gm/dL Hct 30.8 L 31.3 L (39.0-53.0) % MCHC 30.4 L (31.0-37.0) g/dL RDW 19.0 H 18.8 H (11.5-15.5) % Neutrophils # 8.3 H (1.3-7.7) k/uL Lymphocytes # 0.4 L 0.4 L (1.0-4.8) k/uL APTT 21.8 L (22.0-30.0) sec D-Dimer 0.84 H (<0.60) mg/L FEU Potassium (3.5-5.1) mmol/L Carbon Dioxide (22-30) mmol/L BUN (9-20) mg/dL Creatinine (0.66-1.25) mg/dL Glucose (74-99) mg/dL ALT (21-72) U/L Troponin I (0.000-0.034) ng/mL Thrombosis Risk Factor Assmnt - Choose All That Apply Any of the Below Risk Factors Present?: Yes Each Factor Represents 1 point: Abnormal pulmonary function (COPD), Swollen legs (current) Other Risk Factors: Yes Each Risk Factor Represents 2 Points: Age 61-74 years Thrombosis Risk Factor Assessment Total Risk Factor Score: 4 Thrombosis Risk Factor Assessment Level: Moderate Risk Assessment and Plan Plan: Chest pain, SOB, d-dimer borderline, lingular infiltrate on CXR, WBC 9.0, afebrile, Troponin uptrending - Suspected ACS vs PE in setting of LE edema vs CHF exacerbation vs COPD exacerbation (less likely) - Will obtain V/Q scan - Cardiology recs appreciated -- c/w IV Heparin at this time. Will continue to trend Troponin - C/w Aspirin 81 mg qd, Lipitor 40, Lasix 4 IV q8h, Lopressor 50 mg TID - F/u Echocardiogram - Will obtain ABG and consider DCing Solumedrol Chronic microcytic anemia - Check iron panel folate, b12 CAD - C/w Aspirin, Lipitor, Lopressor Afib, not on chronic AC - C/w Heparin for now. Previously DCed due to GIB. Monitor CBC closely. AIDEN on CKD - Will monitor for now HTN - C/w Hydralazine 50 TID, Lopressor 50 TID, Norvasc 10 HLD - C/w Lipitor 80 DVT//GI prophylaxis - Heparin IV - Protonix The patient is admitted with an anticipated greater than 2 midnight stay for evaluation of chest pain CODE STATUS:Full-code Discussed with: , patient Anticipated discharge date: 01/14/[address]: Home A total of 60 minutes was spent on the care of this complex patient more than 50 % of the time was spent in counseling and care coordination.
[2018-01-11 13:51] LABS: ABG Base Excess 9.1 mmol/L; ABG HCO3 32 mmol/L (21-25); ABG Oxygen Saturation 93.6 % (94-97); ABG PCO2 36 mmHg (35-45); ABG PH 7.55 (7.35-7.45); ABG PO2 60 mmHg (83-108); ABG TCO2 33 mmol/L (19-24)
--- NOTE | 2018-01-11 15:02 | P.CNPUL ---
History of Present Illness Consult date: 01/11/18 Reason for consult: dyspnea History of present illness: 72-year-old male patient, known history of coronary artery disease with previous bypass surgery in 2006 has been followed up by Dr. Arcos, history of chronic atrial fibrillation the patient is currently off anticoagulation due to concern of upper GI bleed, history of CHF with diastolic dysfunction, history of COPD, hypertension and hyperlipidemia. The patient has had multiple hospitalizations for acute respiratory failure and COPD exacerbation decompensated heart failure. During early hospitalizations the patient was intubated and placed on mechanical ventilator. During an earlier hospitalization the patient also developed a right-sided pleural effusion and the fluid was drained in the fluid was a transudate. The patient coming in yesterday because of a increased shortness of breath and the same time pain across the chest that was done times pressure and other times pleuritic in nature. No significant cough. No hemoptysis. No fever or chills. Apparently the patient has gained about 6 pounds over the past few days.. No major swelling lower extremities. No altered mentation. He is in chronic atrial fibrillation for now based on his EKG. Troponins are mildly elevated and there is obvious troponin leak. No ST segment elevation or depression. D-dimer was minimally elevated at 0.8. The blood gas shows a component of alkalosis probably a combination of respiratory and metabolic alkalosis with a pH of 7.55 and a pCO2 of 36 and pO2 of 60 and this was done and FiO2 of 36%. ProBNP level is 4480. The patient is currently on Lasix 40 g IV every 8 hours. The patient is also on DuoNeb about treatments around the clock, IV Solu Medrol, and the patient will be undergoing a VQ scan this afternoon. Note that the patient's latest almost function tests from 2017 showed an FEV1 of 63% of predicted and the patient has diffusion capacity of 61% of predicted and a total lung capacity was at 99% of predicted. The previously drained pleural fluid was negative for malignancy. Review of Systems Constitutional: Denies weight loss, denies fatigue, no night sweats, no fever, no chills. Cardiovascular: Denies palpitations, chest pain and the patient has been describing increased chest pressure and some pleuritic pain across the anterior chest area. Pulmonary: As noted in HPI. GI: Denies nausea vomiting abdominal pain diarrhea or constipation. Genitourinary: Denies dysuria, frequency, or urgency. Neurologic: Denies weakness, confusion, dizziness, or numbness. Musculoskeletal: Denies weakness arthralgia or myalgia Skin: Denies any skin lesions or rashes. Endocrine: No polydipsia, no polyuria, no heat or cold sensitivity. Hematologic: No clotting bleeding or bruising Psychiatric: No symptoms of active depression. Past Medical History Past Medical History: Coronary Artery Disease (CAD), Chest Pain / Angina, Heart Failure, COPD, GERD/Reflux, GI Bleed, Hyperlipidemia, Hypertension, Myocardial Infarction (NC), Osteoarthritis (OA), Pneumonia, Vascular Disorder Additional Past Medical History / Comment(s): Coronary artery disease with previous bypass surgery in 2006, CHF with diastolic dysfunction and the patient is a preserved LV function based on recent echocardiogram, COPD with an FEV1 of 63% of predicted, hypertension, hyperlipidemia, acid reflux, osteoarthritis, previous history of right-sided pleural effusion secondary to CHF, recovered, chronic atrial fibrillation, hiatal hernia with previous history of gastric ulcer and the patient had a EGD and colonoscopy that was done in July 2017 indicating gastritis with negative H. pylori and the patient had some colonic polyps the hospitalist nocturnist physician to be benign and a were resected via polypectomy. Patient has also hemorrhoids, chronic back pain, migraine, acid reflux, previous history of GI bleed, osteoarthritis. Last Myocardial Infarction Date:: 2006 History of Any Multi-Drug Resistant Organisms: None Reported Past Surgical History: Appendectomy, Coronary Bypass/CABG, Heart Catheterization With Stent Additional Past Surgical History / Comment(s): 07/2017 EGD/COLONOSCOPY WITH POLYPECTOMY, TRIPLE CABG 2006. PCI/STENT IN 2000. STENTS PAT LEGS. EXC bilat CATARACT 05/25/17. PAIN CLINIC PROCEDURES Past Anesthesia/Blood Transfusion Reactions: No Reported Reaction Date of Last Stent Placement:: 2000 Past Psychological History: No Psychological Hx Reported Additional Psychological History / Comment(s): Pt resides with his spouse. He uses a cane to ambulate. He drives. 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 Past Drug Use History: None Reported - Past Family History Mother Family Medical History: Cancer, Osteoarthritis (OA) Medications and Allergies Home Medications Medication Instructions Recorded Confirmed Type Hydrocodone/Acetaminophen 1 tab PO Q6HR PRN 12/25/13 01/10/18 History [Hydrocodone/Acetaminophen 10-325] Albuterol Inhaler [Ventolin Hfa 1 - 2 puff INHALATION RT-Q6H PRN 10/31/17 Rx Inhaler] #1 inhaler Ferrous Sulfate [Iron (65 MG 325 mg PO BID-W/MEALS #60 tab 10/31/17 01/10/18 Rx Elemental)] amLODIPine [Norvasc] 10 mg PO DAILY #60 tab 10/31/17 01/10/18 Rx Ipratropium-Albuterol Nebulize 3 ml INHALATION RT-Q6H 11/09/17 01/10/18 History [Duoneb 0.5 mg-3 mg/3 ml Soln] Aspirin 325 mg PO DAILY 01/10/18 01/10/18 History Atorvastatin Calcium [Lipitor] 40 mg PO DAILY 01/10/18 01/10/18 History Budesonide-Formot 160-4.5 Mcg 2 puff INHALATION RT-BID 01/10/18 01/10/18 History [Symbicort 160-4.5 Mcg Inhaler] Furosemide [Lasix] 40 mg PO BID 01/10/18 01/10/18 History Metoprolol Tartrate [Lopressor] 50 mg PO TID 01/10/18 01/10/18 History Omeprazole [PriLOSEC] 40 mg PO DAILY 01/10/18 01/10/18 History hydrALAZINE HCL [Apresoline] 50 mg PO TID 01/10/18 01/10/18 History Allergies Allergy/AdvReac Type Severity Reaction Status Date / Time No Known Allergies Allergy Verified 01/10/18 17:22 Physical Exam Vitals: Vital Signs Temp Pulse Pulse Resp BP BP Pulse Ox 01/11/18 14:08 92 01/11/18 13:50 88 01/11/18 08:09 96 01/11/18 08:00 90 18 164/66 100 01/11/18 07:52 90 01/11/18 04:00 96.1 F L 105 H 21 169/76 97 01/11/18 02:26 106 H 01/11/18 02:14 86 01/10/18 22:47 98.6 F 82 18 152/67 87 L 01/10/18 20:52 82 94 L 01/10/18 20:47 98.7 F 96 20 163/98 96 01/10/18 20:38 80 01/10/18 20:16 98.5 F 94 18 166/59 92 L 01/10/18 19:34 76 18 177/79 92 L 01/10/18 18:25 176/75 01/10/18 18:17 86 20 162/71 97 01/10/18 18:08 82 01/10/18 18:01 82 01/10/18 17:40 20 01/10/18 16:31 98.5 F 82 18 125/61 100 Intake and Output 01/10/18 01/11/18 01/11/18 22:59 06:59 14:59 Output Total 650 1 Balance -650 -1 Output: Urine 650 1 Other: Voiding Method Urinal # Voids 1 350 Weight 56.699 kg 59.6 kg 59.6 kg GENERAL EXAM: 72-year-old white male, cachectic, currently on 3 L per nasal cannula, in no acute distress, awake alert, oriented 3 HEAD: Normocephalic/atraumatic. EYES: Normal reaction of pupils, equal size. Conjunctiva pink, sclera white. NOSE: Clear with pink turbinates. THROAT: No erythema or exudates. NECK: No masses, no JVD, no thyroid enlargement, no adenopathy. CHEST: No chest wall deformity. Symmetrical expansion. LUNGS: Equal air entry with minimal crackles at the lung bases and the patient is prolongation of expiratory phase of breathing and scattered expiratory wheezes heard throughout the lung randolph. Air entry overall is diminished. CVS: Irregular rate and rhythm, consistent with atrial fibrillation., normal S1 and S2, no gallops, no murmurs, no rubs ABDOMEN: Soft, nontender. No hepatosplenomegaly, normal bowel sounds, no guarding or rigidity. EXTREMITIES: No clubbing, no cyanosis, 2+ pulses and upper and lower extremities. No edema MUSCULOSKELETAL: Muscle strength and tone normal. SPINE: No scoliosis or deformity SKIN: No rashes CENTRAL NERVOUS SYSTEM: Sedated. No focal deficits, tone is normal in all 4 extremities. PSYCHIATRIC: Calm, alert and oriented. Results - Laboratory Findings CBC and BMP: 01/11/18 09:28 01/11/18 05:27 ABG ABG pH 7.55 (7.35-7.45) H 01/11/18 13:48 ABG pCO2 36 mmHg (35-45) 01/11/18 13:48 ABG pO2 60 mmHg (83-108) L 01/11/18 13:48 ABG O2 Saturation 93.6 % (94-97) L 01/11/18 13:48 PT/INR, D-dimer PT 9.9 sec (9.0-12.0) 01/11/18 09:28 INR 1.0 (<1.2) 01/11/18 09:28 D-Dimer 0.84 mg/L FEU (<0.60) H 01/11/18 09:28 Abnormal lab findings: Abnormal Labs 01/10/18 01/10/18 01/10/18 16:55 16:55 16:55 RBC 3.80 L Hgb 10.2 L Hct 33.1 L MCHC 30.9 L RDW 18.9 H Neutrophils # 8.0 H Lymphocytes # APTT D-Dimer ABG pH ABG pO2 ABG HCO3 ABG Total CO2 ABG O2 Saturation Potassium 3.3 L Carbon Dioxide 31 H BUN 21 H Creatinine Glucose 104 H ALT 18 L Troponin I 0.075 H* 01/10/18 01/11/18 01/11/18 23:21 05:27 05:27 RBC Hgb Hct MCHC RDW Neutrophils # Lymphocytes # APTT D-Dimer ABG pH ABG pO2 ABG HCO3 ABG Total CO2 ABG O2 Saturation Potassium Carbon Dioxide 32 H BUN 27 H Creatinine 1.32 H Glucose 194 H ALT Troponin I 0.059 H* 0.117 H* 01/11/18 01/11/18 01/11/18 05:27 09:28 09:28 RBC 3.49 L 3.58 L Hgb 9.4 L 9.9 L Hct 30.8 L 31.3 L MCHC 30.4 L RDW 19.0 H 18.8 H Neutrophils # 8.3 H Lymphocytes # 0.4 L 0.4 L APTT 21.8 L D-Dimer 0.84 H ABG pH ABG pO2 ABG HCO3 ABG Total CO2 ABG O2 Saturation Potassium Carbon Dioxide BUN Creatinine Glucose ALT Troponin I 01/11/18 13:48 RBC Hgb Hct MCHC RDW Neutrophils # Lymphocytes # APTT D-Dimer ABG pH 7.55 H ABG pO2 60 L ABG HCO3 32 H ABG Total CO2 33 H ABG O2 Saturation 93.6 L Potassium Carbon Dioxide BUN Creatinine Glucose ALT Troponin I - Diagnostic Findings Chest x-ray: image reviewed Assessment and Plan Plan: Assessment 1 acute dyspnea/chest pain. Patient is currently under investigation. Clearly the patient has an acute COPD exacerbation. In addition, the patient is experiencing chest pain and has some minimal troponin leak in the setting of coronary artery disease and previous bypass surgery and previous coronary intervention and stenting. As such cardiology evaluation will be needed to rule out any underlying unstable angina or non-ST segment elevation myocardial infarction. 2 moderate to severe COPD with an acute exacerbation of chronic COPD and secondary shortness of breath 3 CHF with diastolic dysfunction and preserved LV function 4 chronic atrial fibrillation currently unknown to coagulation 5 troponin elevation/leak, currently under investigation 6 coronary artery disease with previous bypass surgery and previous coronary intervention and stenting 7 peripheral vascular disease with previous history of bilateral stenting of the lower extremities 8 hypertension 9 hyperlipidemia 10 chronic anemia 11 acid reflux 12 osteoarthritis 13 previous history of right-sided pleural effusion postthoracentesis and the fluid cytology was negative for malignancy 14 hiatal hernia 15 previous history of GI bleed and the patient had a colonoscopy and EGD back in July 2017 that showed some mild gastritis and colonic polyps. Currently the patient IV heparin 16 hemorrhoids 17 chronic back pain 18 migraine 19 previous history of osteoarthritis Plan My overall suspicion for pulmonary embolism is low. The patient is an acute COPD exacerbation. There may be possibly a component of acute ischemic heart disease/unstable angina in addition. Currently on IV heparin. We'll watch for any GI bleeding. VQ scan and possibly a CT angios the chest in the renal function stabilizes. Continue IV Lasix. Continue bronchodilators. Continue systemic steroids. We'll continue to follow. Awaiting cardiology evaluation.
--- NOTE | 2018-01-11 15:04 | NM ---
EXAMINATION TYPE: NM pul vent and perfuse DATE OF EXAM: 01/11/2018 COMPARISON: Correlation radiograph 01/10/2018 HISTORY: 72 year-old male shortness of breath, chest pain, difficulty breathing, CHF. TECHNIQUE: Utilizing inhalation of 35.8 mCi Tc 99m DTPA aerosol and intravenous injection of 5.2 mCi of Tc 99m MAA, ventilation and perfusion images are acquired post injection in multiple projections. FINDINGS: Normal perfusion noted in the lungs. There is slight heterogeneity of ventilation. No mismatch perfus ion defect. IMPRESSION: Very low probability for pulmonary embolus.
[2018-01-11 20:13] LABS: Glucose,Whole Blood 384 mg/dL (75-99)
[2018-01-11 21:41] LABS: Glucose,Whole Blood 338 mg/dL (75-99)
[2018-01-11] MEDS: INSULIN ASPART 100 UNIT/ML 1 ML 10 ML VIAL SQ SCH (21:44)
[2018-01-12] MEDS: IPRATROPIUM-ALBUTEROL 3 ML NEB INHALATION SCH ×4 (01:20→20:40)
[2018-01-12 04:57] LABS: Hemoglobin A1C 5.6 % (4.0-6.0)
[2018-01-12 06:00] LABS: Glucose,Whole Blood 188 mg/dL (75-99)
[2018-01-12] MEDS: methylPREDNISolone SOD SUCCI 125 MG/2 ML VIAL IV SCH (06:13)
[2018-01-12] MEDS: FERROUS SULFATE 325 MG TAB PO SCH ×2 (06:13→18:00)
[2018-01-12] MEDS: PANTOPRAZOLE 40 MG TABLET PO SCH (06:13)
[2018-01-12] MEDS: INSULIN ASPART 100 UNIT/ML 1 ML 10 ML VIAL SQ SCH ×4 (06:18→21:26)
[2018-01-12 06:55] LABS: Anisocytosis Slight; Basophils % (A) 0 %; Eosinophils % (A) 0 %; HCT 28.7 % (39.0-53.0); HGB 9.1 gm/dL (13.0-17.5); Lymphocytes # (A) 0.8 k/uL (1.0-4.8); Lymphocytes % (A) 5 %; MCH 26.8 pg (25.0-35.0); MCHC 31.5 g/dL (31.0-37.0); Mean Platelet Volume 6.9; Microcytosis Slight; Monocytes # (A) 0.5 k/uL (0-1.0); Monocytes % (A) 3 %; Neutrophils % (A) 91 %; Platelet Count 220 k/uL (150-450); RBC 3.38 m/uL (4.30-5.90); RDW 18.8 % (11.5-15.5); WBC 16.5 k/uL (3.8-10.6)
[2018-01-12] MEDS: FUROSEMIDE 10 MG/ML 4 ML VIAL IV SCH ×3 (08:07→20:48)
[2018-01-12] MEDS: amLODIPine 10 MG TAB PO SCH (08:07)
[2018-01-12] MEDS: ASPIRIN 81 MG PO SCH (08:08)
[2018-01-12] MEDS: METOPROLOL TARTRATE 50 MG TAB PO SCH ×3 (08:08→20:47)
[2018-01-12] MEDS: hydrALAZINE HCL 50 MG TAB PO SCH ×3 (08:08→20:47)
[2018-01-12] MEDS: ATORVASTATIN 40 MG TAB PO SCH (08:08)
[2018-01-12] MEDS: NITROGLYCERIN OINT 1 INCH/GM PACKET TOPICAL SCH ×3 (08:08→20:48)
[2018-01-12] MEDS: HYDROcodone/APAP 10-325MG 1 EACH TAB PO PRN ×2 (08:09→16:42)
[2018-01-12 11:41] LABS: Glucose,Whole Blood 428 mg/dL (75-99)
[2018-01-12] MEDS ORDERED: INSULIN ASPART 100 UNIT/ML 1 ML 10 ML VIAL SQ ONE (11:53)
--- NOTE | 2018-01-12 11:55 | P.PN ---
Subjective Progress Note Date: 01/12/18 This a pleasant 72-year-old gentleman with history of coronary artery disease, COPD, PAD with prior intervention, congestive heart failure, hyperlipidemia, hypertension, admitted to the hospital with atypical pleuritic type chest pain and sudden onset of shortness of breath. Patient did have an echocardiogram with Doppler study performed in October of this year which revealed a normal left ventricular systolic function with moderate mitral and mild tricuspid regurgitation. It appears the patient may have had an acute COPD exacerbation. Chest pain very atypical. He did have abnormality noted in his troponin, likely secondary to hypoxia. D-dimer came back to be 0.8 so VQ scan was performed which came back low probability for pulmonary embolus. He was seen and examined this morning, denied any chest discomfort, breathing overall is stable. Blood pressure 134/60 with a heart rate in the 70s, 90% on 4 L of oxygen. White blood cell count 16.5, hemoglobin 9.1, platelet count 220. Objective - Vital Signs Vital signs: Vital Signs Temp 97.4 F L 01/12/18 08:00 Pulse 74 01/12/18 08:00 Resp 18 01/12/18 08:00 BP 134/63 01/12/18 08:00 Pulse Ox 98 01/12/18 08:00 Intake & Output 01/11/18 01/12/18 01/12/18 18:59 06:59 18:59 Intake Total 800 324.517 2668 Output Total 600 900 Balance 200 -531.982 9037 Weight 59.6 kg 60.7 kg Intake: Intake, IV Titration 208.380 Amount Heparin Sod,Pork in 0.45% 208.380 NaCl 25,000 unit In 0.45 % NaCl 1 500ml.bag @ 12 UNITS/KG/HR 14.3 mls/hr IV .Q24H [facility] Rx#: [id number] Oral 800 1200 Output: Urine 600 900 Other: Voiding Method Urinal Urinal Urinal # Voids 1 0 # Bowel Movements 1 0 - Exam GENERAL EXAM: 72-year-old white male, in no acute distress at the time of my examination HEAD: Normocephalic/atraumatic. EYES: Normal reaction of pupils, equal size. Conjunctiva pink, sclera white. NOSE: Clear with pink turbinates. THROAT: No erythema or exudates. NECK: No masses, no JVD, no thyroid enlargement, no adenopathy. CHEST: No chest wall deformity. Symmetrical expansion. LUNGS: Equal air entry with minimal crackles at the lung bases and the patient is prolongation of expiratory phase of breathing and scattered expiratory wheezes heard throughout the lung randolph. Air entry overall is diminished. CVS: Irregular rate and rhythm, consistent with atrial fibrillation., normal S1 and S2, no gallops, no murmurs, no rubs ABDOMEN: Soft, nontender. No hepatosplenomegaly, normal bowel sounds, no guarding or rigidity. EXTREMITIES: No clubbing, no cyanosis, 2+ pulses and upper and lower extremities. No edema MUSCULOSKELETAL: Muscle strength and tone normal. SPINE: No scoliosis or deformity SKIN: No rashes CENTRAL NERVOUS SYSTEM: Sedated. No focal deficits, tone is normal in all 4 extremities. PSYCHIATRIC: Calm, alert and oriented. - Labs CBC & Chem 7: 01/12/18 06:05 01/11/18 05:27 Labs: Abnormal Lab Results - Last 24 Hours (Table) 01/11/18 01/11/18 01/11/18 Range/Units 13:48 15:43 20:11 WBC (3.8-10.6) k/uL RBC (4.30-5.90) m/uL Hgb (13.0-17.5) gm/dL Hct (39.0-53.0) % RDW (11.5-15.5) % Neutrophils # (1.3-7.7) k/uL Lymphocytes # (1.0-4.8) k/uL APTT 37.1 H (22.0-30.0) sec ABG pH 7.55 H (7.35-7.45) ABG pO2 60 L (83-108) mmHg ABG HCO3 32 H (21-25) mmol/L ABG Total CO2 33 H (19-24) mmol/L ABG O2 Saturation 93.6 L (94-97) % POC Glucose (mg/dL) 384 H (75-99) mg/dL 01/11/18 01/11/18 01/12/18 Range/Units 21:40 22:47 05:58 WBC (3.8-10.6) k/uL RBC (4.30-5.90) m/uL Hgb (13.0-17.5) gm/dL Hct (39.0-53.0) % RDW (11.5-15.5) % Neutrophils # (1.3-7.7) k/uL Lymphocytes # (1.0-4.8) k/uL APTT 59.4 H (22.0-30.0) sec ABG pH (7.35-7.45) ABG pO2 (83-108) mmHg ABG HCO3 (21-25) mmol/L ABG Total CO2 (19-24) mmol/L ABG O2 Saturation (94-97) % POC Glucose (mg/dL) 338 H 188 H (75-99) mg/dL 01/12/18 01/12/18 01/12/18 Range/Units 06:05 06:05 11:39 WBC 16.5 H (3.8-10.6) k/uL RBC 3.38 L (4.30-5.90) m/uL Hgb 9.1 L (13.0-17.5) gm/dL Hct 28.7 L (39.0-53.0) % RDW 18.8 H (11.5-15.5) % Neutrophils # 15.0 H (1.3-7.7) k/uL Lymphocytes # 0.8 L (1.0-4.8) k/uL APTT 46.6 H (22.0-30.0) sec ABG pH (7.35-7.45) ABG pO2 (83-108) mmHg ABG HCO3 (21-25) mmol/L ABG Total CO2 (19-24) mmol/L ABG O2 Saturation (94-97) % POC Glucose (mg/dL) 428 H (75-99) mg/dL Assessment and Plan Plan: Assessment 1 acute dyspnea/chest pain. Patient has an acute COPD exacerbation. Chest pain very atypical for acute coronary syndrome. Troponin abnormality likely secondary to hypoxemia 2 moderate to severe COPD with an acute exacerbation of chronic COPD 3 CHF with diastolic dysfunction and preserved LV function, acute on chronic 4 chronic atrial fibrillation currently not on anticoagulation secondary to GI bleed 5 troponin elevation/leak, likely secondary to hypoxemia 6 coronary artery disease with previous bypass surgery and previous coronary intervention and stenting 7 peripheral vascular disease with previous history of bilateral stenting of the lower extremities 8 hypertension 9 hyperlipidemia 10 chronic anemia 11 acid reflux 12 osteoarthritis 13 previous history of right-sided pleural effusion postthoracentesis and the fluid cytology was negative for malignancy 14 hiatal hernia 15 previous history of GI bleed and the patient had a colonoscopy and EGD back in July 2017 that showed some mild gastritis and colonic polyps. Currently the patient IV heparin 16 hemorrhoids 17 chronic back pain 18 migraine 19 previous history of osteoarthritis Plan Cardiology's perspective, patient may be able to be discharged home once cleared by primary. We'll make sure he has a follow-up appointment to see Dr. Arcos in the office post discharge. DNP note has been reviewed, I agree with a documented findings and plan of care. Patient was seen and examined.
[2018-01-12 12:24] LABS: Calcium 9.3 mg/dL (8.4-10.2); Potassium 3.6 mmol/L (3.5-5.1)
--- NOTE | 2018-01-12 12:55 | P.PN ---
Subjective Progress Note Date: 01/12/18 The patient was seen and examined with at the bedside. He notes that his breathing has improved since admission and denied any further episodes of chest pain. He further denied cough, wheezing, nausea, vomiting, fever, chills, diarrhea, or constipation. Objective - Vital Signs Vital signs: Vital Signs Temp 97.4 F L 01/12/18 08:00 Pulse 74 01/12/18 08:00 Resp 18 01/12/18 08:00 BP 134/63 01/12/18 08:00 Pulse Ox 98 01/12/18 08:00 Intake & Output 01/11/18 01/12/18 01/12/18 18:59 06:59 18:59 Intake Total 800 588.479 1424 Output Total 600 900 Balance 200 -457.944 7893 Weight 59.6 kg 60.7 kg Intake: Intake, IV Titration 208.380 Amount Heparin Sod,Pork in 0.45% 208.380 NaCl 25,000 unit In 0.45 % NaCl 1 500ml.bag @ 12 UNITS/KG/HR 14.3 mls/hr IV .Q24H [facility] Rx#: [id number] Oral 800 1200 Output: Urine 600 900 Other: Voiding Method Urinal Urinal Urinal # Voids 1 0 # Bowel Movements 1 0 - Exam General: Non-toxic, in no acute distress HEENT: NC/AT, anicteric sclerae, moist conjunctiva, no lid-lag, PERRLA, oropharynx clear, no erythema, exudates Cardiovascular: S1/S2, irregularly irregularl, no murmurs, rubs, or gallops Lungs: Clear to auscultation, normal respiratory effort, no accessory muscle use Abdominal: Soft, nontender, non-distended, no guarding, rebound, or rigidity, normoactive bowel sounds Skin: Warm, dry Extremities: No edema or contractures Psychiatric: Alert and oriented to person, place and time, appropriate affect, Intact judgment Neuro: CN II-XII grossly intact, no focal motor deficits - Labs CBC & Chem 7: 01/12/18 06:05 01/12/18 11:37 Labs: Abnormal Lab Results - Last 24 Hours (Table) 01/11/18 01/11/18 01/11/18 Range/Units 13:48 15:43 20:11 WBC (3.8-10.6) k/uL RBC (4.30-5.90) m/uL Hgb (13.0-17.5) gm/dL Hct (39.0-53.0) % RDW (11.5-15.5) % Neutrophils # (1.3-7.7) k/uL Lymphocytes # (1.0-4.8) k/uL APTT 37.1 H (22.0-30.0) sec ABG pH 7.55 H (7.35-7.45) ABG pO2 60 L (83-108) mmHg ABG HCO3 32 H (21-25) mmol/L ABG Total CO2 33 H (19-24) mmol/L ABG O2 Saturation 93.6 L (94-97) % Sodium (137-145) mmol/L Chloride (98-107) mmol/L BUN (9-20) mg/dL Creatinine (0.66-1.25) mg/dL Glucose (74-99) mg/dL POC Glucose (mg/dL) 384 H (75-99) mg/dL 01/11/18 01/11/18 01/12/18 Range/Units 21:40 22:47 05:58 WBC (3.8-10.6) k/uL RBC (4.30-5.90) m/uL Hgb (13.0-17.5) gm/dL Hct (39.0-53.0) % RDW (11.5-15.5) % Neutrophils # (1.3-7.7) k/uL Lymphocytes # (1.0-4.8) k/uL APTT 59.4 H (22.0-30.0) sec ABG pH (7.35-7.45) ABG pO2 (83-108) mmHg ABG HCO3 (21-25) mmol/L ABG Total CO2 (19-24) mmol/L ABG O2 Saturation (94-97) % Sodium (137-145) mmol/L Chloride (98-107) mmol/L BUN (9-20) mg/dL Creatinine (0.66-1.25) mg/dL Glucose (74-99) mg/dL POC Glucose (mg/dL) 338 H 188 H (75-99) mg/dL 01/12/18 01/12/18 01/12/18 Range/Units 06:05 06:05 11:37 WBC 16.5 H (3.8-10.6) k/uL RBC 3.38 L (4.30-5.90) m/uL Hgb 9.1 L (13.0-17.5) gm/dL Hct 28.7 L (39.0-53.0) % RDW 18.8 H (11.5-15.5) % Neutrophils # 15.0 H (1.3-7.7) k/uL Lymphocytes # 0.8 L (1.0-4.8) k/uL APTT 46.6 H (22.0-30.0) sec ABG pH (7.35-7.45) ABG pO2 (83-108) mmHg ABG HCO3 (21-25) mmol/L ABG Total CO2 (19-24) mmol/L ABG O2 Saturation (94-97) % Sodium 135 L (137-145) mmol/L Chloride 95 L (98-107) mmol/L BUN 46 H (9-20) mg/dL Creatinine 1.30 H (0.66-1.25) mg/dL Glucose 395 H (74-99) mg/dL POC Glucose (mg/dL) (75-99) mg/dL 01/12/18 Range/Units 11:39 WBC (3.8-10.6) k/uL RBC (4.30-5.90) m/uL Hgb (13.0-17.5) gm/dL Hct (39.0-53.0) % RDW (11.5-15.5) % Neutrophils # (1.3-7.7) k/uL Lymphocytes # (1.0-4.8) k/uL APTT (22.0-30.0) sec ABG pH (7.35-7.45) ABG pO2 (83-108) mmHg ABG HCO3 (21-25) mmol/L ABG Total CO2 (19-24) mmol/L ABG O2 Saturation (94-97) % Sodium (137-145) mmol/L Chloride (98-107) mmol/L BUN (9-20) mg/dL Creatinine (0.66-1.25) mg/dL Glucose (74-99) mg/dL POC Glucose (mg/dL) 428 H (75-99) mg/dL Assessment and Plan Plan: Shortness of breath, likely acute on chronic COPD exacerbation - V/Q scan low probability for PE - Cardiology recs appreciated. Will DC Heparin infusion - C/w Duonebs and Solumedrol Hyperglycemia - Likely secondary to IV steroids - Will give Insulin sliding scale and give basal insulin tonight 10 U Chronic microcytic anemia - Check iron panel folate, b12 CAD - C/w Aspirin, Lipitor, Lopressor Afib, not on chronic AC - Not on AC due to hx of GIB AIDEN on CKD - Will monitor for now HTN - C/w Hydralazine 50 TID, Lopressor 50 TID, Norvasc 10 HLD - C/w Lipitor 80 DVT//GI prophylaxis - Heparin subq - Protonix The patient is admitted with an anticipated greater than 2 midnight stay for evaluation of chest pain CODE STATUS:Full-code Discussed with: , patient Anticipated discharge date: 01/13/[address]: Home A total of 60 minutes was spent on the care of this complex patient more than 50 % of the time was spent in counseling and care coordination.
--- NOTE | 2018-01-12 12:56 | P.PN ---
Subjective Progress Note Date: 01/12/18 Principal diagnosis: Acute dyspnea/chest pain, moderate to severe COPD, CHF with diastolic dysfunction 72-year-old male patient, known history of coronary artery disease with previous bypass surgery in 2006 has been followed up by Dr. Arcos, history of chronic atrial fibrillation the patient is currently off anticoagulation due to concern of upper GI bleed, history of CHF with diastolic dysfunction, history of COPD, hypertension and hyperlipidemia. The patient has had multiple hospitalizations for acute respiratory failure and COPD exacerbation decompensated heart failure. During early hospitalizations the patient was intubated and placed on mechanical ventilator. During an earlier hospitalization the patient also developed a right-sided pleural effusion and the fluid was drained in the fluid was a transudate. The patient coming in yesterday because of a increased shortness of breath and the same time pain across the chest that was done times pressure and other times pleuritic in nature. No significant cough. No hemoptysis. No fever or chills. Apparently the patient has gained about 6 pounds over the past few days.. No major swelling lower extremities. No altered mentation. He is in chronic atrial fibrillation for now based on his EKG. Troponins are mildly elevated and there is obvious troponin leak. No ST segment elevation or depression. D-dimer was minimally elevated at 0.8. The blood gas shows a component of alkalosis probably a combination of respiratory and metabolic alkalosis with a pH of 7.55 and a pCO2 of 36 and pO2 of 60 and this was done and FiO2 of 36%. ProBNP level is 4480. The patient is currently on Lasix 40 g IV every 8 hours. The patient is also on DuoNeb about treatments around the clock, IV Solu Medrol, and the patient will be undergoing a VQ scan this afternoon. Note that the patient's latest almost function tests from 2017 showed an FEV1 of 63% of predicted and the patient has diffusion capacity of 61% of predicted and a total lung capacity was at 99% of predicted. The previously drained pleural fluid was negative for malignancy. On 01/12/2018 patient is seen in follow-up on selective care unit. He is uncomfortable, did wear the BiPAP last night, with pressures of 12 and 5, and 40 %, currently on 4 L per nasal cannula, this is his home dose oxygen, lung sounds are positive for bibasilar crackles, diminished breath sounds overall. He is in -491 mL fluid balance over the last 24 hours, VQ scan showed low probability of pulmonary embolism, yesterday blood gas was obtained, and showed pO2 of 60, pCO2 of 30, and pH of 7.55, consistent with primary respiratory alkalosis, and hypoxemia. No acute distress, he is alert and oriented 3. No complaints of chest pain, still has minimal pretibial edema. He continues on IV heparin. Patient does have a past medical history of GI bleeding, he remains in A. fib, currently not on any anticoagulation on a regular basis related to his history of GI bleed. Objective - Vital Signs Vital signs: Vital Signs Temp 97.4 F L 01/12/18 08:00 Pulse 74 01/12/18 08:00 Resp 18 01/12/18 08:00 BP 134/63 01/12/18 08:00 Pulse Ox 98 01/12/18 08:00 Intake & Output 01/11/18 01/12/18 01/12/18 18:59 06:59 18:59 Intake Total 800 599.742 2591 Output Total 600 900 Balance 200 -882.352 0001 Weight 59.6 kg 60.7 kg Intake: Intake, IV Titration 208.380 Amount Heparin Sod,Pork in 0.45% 208.380 NaCl 25,000 unit In 0.45 % NaCl 1 500ml.bag @ 12 UNITS/KG/HR 14.3 mls/hr IV .Q24H [facility] Rx#: [id number] Oral 800 1200 Output: Urine 600 900 Other: Voiding Method Urinal Urinal Urinal # Voids 1 0 # Bowel Movements 1 0 - Exam GENERAL EXAM: 72-year-old white male, cachectic, currently on 4 L per nasal cannula, in no acute distress, awake alert, oriented 3 HEAD: Normocephalic/atraumatic. EYES: Normal reaction of pupils, equal size. Conjunctiva pink, sclera white. NOSE: Clear with pink turbinates. THROAT: No erythema or exudates. NECK: No masses, no JVD, no thyroid enlargement, no adenopathy. CHEST: No chest wall deformity. Symmetrical expansion. LUNGS: Equal air entry with minimal crackles at the lung bases and the patient is prolongation of expiratory phase. Air entry overall is diminished. CVS: Irregular rate and rhythm, consistent with atrial fibrillation., normal S1 and S2, no gallops, no murmurs, no rubs ABDOMEN: Soft, nontender. No hepatosplenomegaly, normal bowel sounds, no guarding or rigidity. EXTREMITIES: No clubbing, no cyanosis, 2+ pulses and upper and lower extremities. No edema MUSCULOSKELETAL: Muscle strength and tone normal. SPINE: No scoliosis or deformity SKIN: No rashes CENTRAL NERVOUS SYSTEM: Sedated. No focal deficits, tone is normal in all 4 extremities. PSYCHIATRIC: Calm, alert and oriented. - Labs CBC & Chem 7: 01/12/18 06:05 01/12/18 11:37 Labs: Abnormal Lab Results - Last 24 Hours (Table) 01/11/18 01/11/18 01/11/18 Range/Units 13:48 15:43 20:11 WBC (3.8-10.6) k/uL RBC (4.30-5.90) m/uL Hgb (13.0-17.5) gm/dL Hct (39.0-53.0) % RDW (11.5-15.5) % Neutrophils # (1.3-7.7) k/uL Lymphocytes # (1.0-4.8) k/uL APTT 37.1 H (22.0-30.0) sec ABG pH 7.55 H (7.35-7.45) ABG pO2 60 L (83-108) mmHg ABG HCO3 32 H (21-25) mmol/L ABG Total CO2 33 H (19-24) mmol/L ABG O2 Saturation 93.6 L (94-97) % Sodium (137-145) mmol/L Chloride (98-107) mmol/L BUN (9-20) mg/dL Creatinine (0.66-1.25) mg/dL Glucose (74-99) mg/dL POC Glucose (mg/dL) 384 H (75-99) mg/dL 01/11/18 01/11/18 01/12/18 Range/Units 21:40 22:47 05:58 WBC (3.8-10.6) k/uL RBC (4.30-5.90) m/uL Hgb (13.0-17.5) gm/dL Hct (39.0-53.0) % RDW (11.5-15.5) % Neutrophils # (1.3-7.7) k/uL Lymphocytes # (1.0-4.8) k/uL APTT 59.4 H (22.0-30.0) sec ABG pH (7.35-7.45) ABG pO2 (83-108) mmHg ABG HCO3 (21-25) mmol/L ABG Total CO2 (19-24) mmol/L ABG O2 Saturation (94-97) % Sodium (137-145) mmol/L Chloride (98-107) mmol/L BUN (9-20) mg/dL Creatinine (0.66-1.25) mg/dL Glucose (74-99) mg/dL POC Glucose (mg/dL) 338 H 188 H (75-99) mg/dL 01/12/18 01/12/18 01/12/18 Range/Units 06:05 06:05 11:37 WBC 16.5 H (3.8-10.6) k/uL RBC 3.38 L (4.30-5.90) m/uL Hgb 9.1 L (13.0-17.5) gm/dL Hct 28.7 L (39.0-53.0) % RDW 18.8 H (11.5-15.5) % Neutrophils # 15.0 H (1.3-7.7) k/uL Lymphocytes # 0.8 L (1.0-4.8) k/uL APTT 46.6 H (22.0-30.0) sec ABG pH (7.35-7.45) ABG pO2 (83-108) mmHg ABG HCO3 (21-25) mmol/L ABG Total CO2 (19-24) mmol/L ABG O2 Saturation (94-97) % Sodium 135 L (137-145) mmol/L Chloride 95 L (98-107) mmol/L BUN 46 H (9-20) mg/dL Creatinine 1.30 H (0.66-1.25) mg/dL Glucose 395 H (74-99) mg/dL POC Glucose (mg/dL) (75-99) mg/dL 01/12/18 Range/Units 11:39 WBC (3.8-10.6) k/uL RBC (4.30-5.90) m/uL Hgb (13.0-17.5) gm/dL Hct (39.0-53.0) % RDW (11.5-15.5) % Neutrophils # (1.3-7.7) k/uL Lymphocytes # (1.0-4.8) k/uL APTT (22.0-30.0) sec ABG pH (7.35-7.45) ABG pO2 (83-108) mmHg ABG HCO3 (21-25) mmol/L ABG Total CO2 (19-24) mmol/L ABG O2 Saturation (94-97) % Sodium (137-145) mmol/L Chloride (98-107) mmol/L BUN (9-20) mg/dL Creatinine (0.66-1.25) mg/dL Glucose (74-99) mg/dL POC Glucose (mg/dL) 428 H (75-99) mg/dL Assessment and Plan Plan: 1 acute dyspnea/chest pain. Patient is currently under investigation. Clearly the patient has an acute COPD exacerbation. In addition, the patient is experiencing chest pain and has some minimal troponin leak in the setting of coronary artery disease and previous bypass surgery and previous coronary intervention and stenting. As such cardiology evaluation will be needed to rule out any underlying unstable angina or non-ST segment elevation myocardial infarction. 2 moderate to severe COPD with an acute exacerbation of chronic COPD and secondary shortness of breath 3 CHF with diastolic dysfunction and preserved LV function 4 chronic atrial fibrillation currently unknown to coagulation 5 troponin elevation/leak, currently under investigation 6 coronary artery disease with previous bypass surgery and previous coronary intervention and stenting 7 peripheral vascular disease with previous history of bilateral stenting of the lower extremities 8 hypertension 9 hyperlipidemia 10 chronic anemia 11 acid reflux 12 osteoarthritis 13 previous history of right-sided pleural effusion postthoracentesis and the fluid cytology was negative for malignancy 14 hiatal hernia 15 previous history of GI bleed and the patient had a colonoscopy and EGD back in July 2017 that showed some mild gastritis and colonic polyps. Currently the patient IV heparin 16 hemorrhoids 17 chronic back pain 18 migraine 19 previous history of osteoarthritis Plan: Continue with IV diuretics, we'll switch the IV steroids to oral prednisone, currently on IV heparin, not had any recurrences of GI bleeding. Can't results were noted. He remains in atrial fibrillation, inquire with cardiology whether could be started on any chronic anticoagulation possibly with Eliquis. I performed a history & physical examination of the patient and discussed their management with my nurse practitioner, Saray Galarza. I reviewed the nurse practitioner's note and agree with the documented findings and plan of care. Lung sounds are positive for bibasilar crackles, pronation of the expiratory phase, diminished breath sounds. The findings and the impression was discussed with the patient. I attest to the documentation by the nurse practitioner. Time with Patient: Less than 30
[2018-01-12] MEDS: HEPARIN SOD,PORK IN 0.45% NACL 25,000 UNIT in 0.45% NACL 1 500ML.BAG IV SCH (16:44)
[2018-01-12 17:06] LABS: Glucose,Whole Blood 253 mg/dL (75-99)
[2018-01-12 17:53] LABS: Iron Saturation 10.56 (15.00-50.00)
[2018-01-12] MEDS ORDERED: INSULIN DETEMIR 100 UNIT/ML 10 ML VIAL SQ SCH (21:00)
[2018-01-12 21:21] LABS: Glucose,Whole Blood 234 mg/dL (75-99)
[2018-01-13] MEDS: IPRATROPIUM-ALBUTEROL 3 ML NEB INHALATION SCH ×3 (02:07→13:23)
[2018-01-13 04:32] VITALS: RESP 20
[2018-01-13 06:03] LABS: Glucose,Whole Blood 141 mg/dL (75-99)
[2018-01-13 06:16] LABS: Anisocytosis Slight; Basophils % (A) 0 %; Eosinophils % (A) 0 %; HCT 27.6 % (39.0-53.0); HGB 8.6 gm/dL (13.0-17.5); Lymphocytes # (A) 1.2 k/uL (1.0-4.8); Lymphocytes % (A) 7 %; MCH 26.4 pg (25.0-35.0); MCHC 31.3 g/dL (31.0-37.0); MCV 84.6 fL (80.0-100.0); Mean Platelet Volume 7.6; Microcytosis Slight; Monocytes # (A) 0.9 k/uL (0-1.0); Monocytes % (A) 5 %; Neutrophils # (A) 13.7 k/uL (1.3-7.7); Neutrophils % (A) 86 %; Platelet Count 230 k/uL (150-450); RBC 3.26 m/uL (4.30-5.90); RDW 18.8 % (11.5-15.5)
[2018-01-13] MEDS: INSULIN ASPART 100 UNIT/ML 1 ML 10 ML VIAL SQ SCH ×2 (06:53→15:01)
[2018-01-13] MEDS: PANTOPRAZOLE 40 MG TABLET PO SCH (06:53)
[2018-01-13] MEDS: FERROUS SULFATE 325 MG TAB PO SCH (06:53)
[2018-01-13] MEDS: HYDROcodone/APAP 10-325MG 1 EACH TAB PO PRN (08:45)
[2018-01-13] MEDS: FUROSEMIDE 10 MG/ML 4 ML VIAL IV SCH (08:45)
[2018-01-13] MEDS: ASPIRIN 81 MG PO SCH (08:46)
[2018-01-13] MEDS: hydrALAZINE HCL 50 MG TAB PO SCH (08:46)
[2018-01-13] MEDS: NITROGLYCERIN OINT 1 INCH/GM PACKET TOPICAL SCH ×2 (08:46→15:01)
[2018-01-13] MEDS: ATORVASTATIN 40 MG TAB PO SCH (08:46)
[2018-01-13] MEDS: METOPROLOL TARTRATE 50 MG TAB PO SCH (08:46)
[2018-01-13] MEDS: amLODIPine 10 MG TAB PO SCH (08:46)
[2018-01-13] MEDS ORDERED: predniSONE 20 MG TAB PO SCH (09:00)
--- NOTE | 2018-01-13 11:26 | P.PN ---
Subjective Progress Note Date: 01/13/18 This a pleasant 72-year-old gentleman with history of coronary artery disease, COPD, PAD with prior intervention, congestive heart failure, hyperlipidemia, hypertension, and esophageal ulcers with bleeding. He follows with Dr. Arcos in the office. He was admitted to the hospital with atypical pleuritic type chest pain and sudden onset of shortness of breath. Patient did have an echocardiogram with Doppler study performed in October of this year which revealed a normal left ventricular systolic function with moderate mitral and mild tricuspid regurgitation. It appears the patient may have had an acute COPD exacerbation. Chest pain very atypical. He did have abnormality noted in his troponin, likely secondary to hypoxia. D-dimer came back to be 0.8 so VQ scan was performed which came back low probability for pulmonary embolus. He was seen and examined this morning, denied any chest discomfort, breathing overall is stable. He remains in atrial fibrillation which appears to be new for him. Hemoglobin this morning is 8.6, down from 9.1 yesterday. Objective - Vital Signs Vital signs: Vital Signs Temp 97.9 F 01/13/18 04:00 Pulse 80 01/13/18 08:49 Resp 20 01/13/18 08:35 BP 167/71 01/13/18 08:35 Pulse Ox 99 01/13/18 08:35 Intake & Output 01/12/18 01/13/18 01/13/18 18:59 06:59 18:59 Intake Total 1800 240 Output Total 600 1250 Balance 1200 -1250 240 Weight 61.4 kg Intake: Oral 1800 240 Output: Urine 600 1250 Other: Voiding Method Urinal Urinal Urinal # Voids 0 1 # Bowel Movements 0 - Exam PHYSICAL EXAMINATION: HEENT: Head is atraumatic, normocephalic. Pupils equal, round. Neck is supple. There is no elevated jugular venous pressure. HEART EXAMINATION: Heart sounds irregular irregular, S1 and S2 with a systolic murmur at the base. CHEST EXAMINATION: Lungs reveal diminished air entry bilaterally. No chest wall tenderness is noted on palpation or with deep breathing. ABDOMEN: Soft, nontender. Bowel sounds are heard. No organomegaly noted. EXTREMITIES: 2+ peripheral pulses with no evidence of peripheral edema and no calf tenderness noted. NEUROLOGIC patient is awake, alert and oriented x3. . - Labs CBC & Chem 7: 01/13/18 05:53 01/12/18 11:37 Labs: Abnormal Lab Results - Last 24 Hours (Table) 01/12/18 01/12/18 01/12/18 Range/Units 06:05 06:05 11:37 WBC (3.8-10.6) k/uL RBC (4.30-5.90) m/uL Hgb (13.0-17.5) gm/dL Hct (39.0-53.0) % RDW (11.5-15.5) % Neutrophils # (1.3-7.7) k/uL Sodium 135 L (137-145) mmol/L Chloride 95 L (98-107) mmol/L BUN 46 H (9-20) mg/dL Creatinine 1.30 H (0.66-1.25) mg/dL Glucose 395 H (74-99) mg/dL POC Glucose (mg/dL) (75-99) mg/dL Iron 30 L (65-175) ug/dL Iron Saturation 10.56 L (15.00-50.00) RBC Folate 1,073 H (280 - 791) ng/mL 01/12/18 01/12/18 01/12/18 Range/Units 11:39 16:55 21:19 WBC (3.8-10.6) k/uL RBC (4.30-5.90) m/uL Hgb (13.0-17.5) gm/dL Hct (39.0-53.0) % RDW (11.5-15.5) % Neutrophils # (1.3-7.7) k/uL Sodium (137-145) mmol/L Chloride (98-107) mmol/L BUN (9-20) mg/dL Creatinine (0.66-1.25) mg/dL Glucose (74-99) mg/dL POC Glucose (mg/dL) 428 H 253 H 234 H (75-99) mg/dL Iron (65-175) ug/dL Iron Saturation (15.00-50.00) RBC Folate (280 - 791) ng/mL 01/13/18 01/13/18 Range/Units 05:53 06:01 WBC 16.0 H (3.8-10.6) k/uL RBC 3.26 L (4.30-5.90) m/uL Hgb 8.6 L (13.0-17.5) gm/dL Hct 27.6 L (39.0-53.0) % RDW 18.8 H (11.5-15.5) % Neutrophils # 13.7 H (1.3-7.7) k/uL Sodium (137-145) mmol/L Chloride (98-107) mmol/L BUN (9-20) mg/dL Creatinine (0.66-1.25) mg/dL Glucose (74-99) mg/dL POC Glucose (mg/dL) 141 H (75-99) mg/dL Iron (65-175) ug/dL Iron Saturation (15.00-50.00) RBC Folate (280 - 791) ng/mL Assessment and Plan Assessment: #1 acute dyspnea and chest pain, acute COPD exacerbation, chest pain very atypical for acute coronary syndrome #2 abnormal troponins, likely secondary to supply and demand mismatch related to hypoxemia not consistent with ACS #3 moderate to severe COPD with acute exacerbation #4, persistent atrial fibrillation, not candidate for anticoagulation secondary to esophageal ulcers with bleeding in the past while on Plavix #5 CAD with previous bypass surgery and previous PCI #6 hypertension #7 hyperlipidemia #8 chronic anemia #9 history of esophageal ulcers with bleeding, EGD in July of this year showed gastritis with surface bleeding Plan: From cardiology 's perspective, patient is stable for discharge home. We will not place the patient on anticoagulation at this time due to history of significant GI bleeding. He will follow-up in the office with Dr. Arcos. The above dictated assessment and findings were discussed with signing physician. The impression and plan of care have been directed as dictated. Maine Malik, Nurse Practitioner, acting as scribe for signing physician.
--- NOTE | 2018-01-13 11:50 | P.DS ---
Providers Date of admission: 01/10/18 19:03 Expected date of discharge: 01/13/18 Attending physician: Connie Bernal DO Consults: 01/10/18 18:56 Consult Physician Routine Consulting Provider: Claudette George Consult Reason/Comments: CHF, elevated troponin Do you want consulting provider notified?: Yes 01/10/18 23:05 Consult Physician Routine Consulting Provider: Ray Denson Consult Reason/Comments: bilateral pleural effusions, COPD, SOB Do you want consulting provider notified?: Yes, Notify in am Primary care physician: [facility] Course: The patient is a 72 yo M with the PMH of CAD s/p CABG, COPD (on home O2), persistent Afib (previously on AC which was DCed several years ago due to UGIB) , diastolic CHF, HTN, and HLD who presented to the ED w/ complaints of substernal and L sided chest pain w/ associated SOB of 1 day duration. Cardiology was consulted and recommended to draw D-dimer which was elevated and a subsequent V/Q scan was negative for PE. Pulmonary was also consulted and noted that the patient's SOB was likely secondary to COPD exacerbation. The patient's Troponin was noted to be elevated and were attributed to the strain secondary to COPD exacerbation. The patient was placed on Heparin infusion for suspected unstable angina which was DCed after 48 hours. He was given nebulizer treatments and was placed on IV steroids with subsequent gradual improvement in his symptoms. The patient was noted to have AIDEN which resolved spontaneously. Furthermore, patient was noted to have hyperglycemia secondary to IV steroids and was placed on Insulin sliding scale with additional coverage and a basal insulin which was discontinued on discharge. Cardiology recommended to not re- instate anticoagulation for A-fib due to history of significant GI bleeding in past while on anticoagulation. Physical Examination General: Awake, alert, in no acute distress HEENT: NC/AT, anicteric sclerae, moist conjunctiva, no lid-lag, PERRLA, oropharynx clear, no erythema, exudates Cardiovascular: S1/S2 irregularly irregular, no murmurs, rubs, or gallops Lungs: Clear to auscultation, normal respiratory effort, no accessory muscle use Abdominal: Soft, nontender, non-distended, no guarding, rebound, or rigidity, normoactive bowel sounds Skin: Warm, dry Extremities: No edema or contractures Psychiatric: Alert and oriented to person, place and time, appropriate affect, Intact judgment Neuro: CN II-XI grossly intact, sensation to light touch grossly present throughout, no focal sensory deficits Discharge diagnosis:Acute on chronic COPD exacerbation, Acute diastolic CHF exacerbation, Hyperglycemia, AIDEN on CKD, HTN, HLD, Iron deficiency anemia A total of 60 minutes of time were spent preparing this complex discharge summary. Patient Condition at Discharge: Stable Plan - Discharge Summary New Discharge Prescriptions: New predniSONE 40 mg PO DAILY #30 tab Continue Hydrocodone/Acetaminophen [Hydrocodone/Acetaminophen 10-325] 1 tab PO Q6HR PRN PRN Reason: Pain Ferrous Sulfate [Iron (65 MG Elemental)] 325 mg PO BID-W/MEALS #60 tab Albuterol Inhaler [Ventolin Hfa Inhaler] 1 - 2 puff INHALATION RT-Q6H PRN #1 inhaler PRN Reason: Shortness Of Breath Or Wheezing Ipratropium-Albuterol Nebulize [Duoneb 0.5 mg-3 mg/3 ml Soln] 3 ml INHALATION RT-Q6H amLODIPine [Norvasc] 10 mg PO DAILY #30 tab Aspirin 325 mg PO DAILY #30 tab Atorvastatin Calcium [Lipitor] 40 mg PO DAILY #30 tablet Budesonide-Formot 160-4.5 Mcg [Symbicort 160-4.5 Mcg Inhaler] 2 puff INHALATION RT-BID #30 puff Furosemide [Lasix] 40 mg PO BID #60 tab hydrALAZINE HCL [Apresoline] 50 mg PO TID #90 tab Metoprolol Tartrate [Lopressor] 50 mg PO TID #90 tab Omeprazole [PriLOSEC] 40 mg PO DAILY #30 capsule.dr Discharge Medication List Hydrocodone/Acetaminophen [Hydrocodone/Acetaminophen 10-325] 1 tab PO Q6HR PRN 12/25/13 [History] Albuterol Inhaler [Ventolin Hfa Inhaler] 1 - 2 puff INHALATION RT-Q6H PRN #1 inhaler 10/31/17 [Rx] Ferrous Sulfate [Iron (65 MG Elemental)] 325 mg PO BID-W/MEALS #60 tab 10/31/17 [Rx] Ipratropium-Albuterol Nebulize [Duoneb 0.5 mg-3 mg/3 ml Soln] 3 ml INHALATION RT -Q6H 11/09/17 [History] Aspirin 325 mg PO DAILY #30 tab 01/13/18 [Rx] Atorvastatin Calcium [Lipitor] 40 mg PO DAILY #30 tablet 01/13/18 [Rx] Budesonide-Formot 160-4.5 Mcg [Symbicort 160-4.5 Mcg Inhaler] 2 puff INHALATION RT-BID #30 puff 01/13/18 [Rx] Furosemide [Lasix] 40 mg PO BID #60 tab 01/13/18 [Rx] Metoprolol Tartrate [Lopressor] 50 mg PO TID #90 tab 01/13/18 [Rx] Omeprazole [PriLOSEC] 40 mg PO DAILY #30 capsule.dr 01/13/18 [Rx] amLODIPine [Norvasc] 10 mg PO DAILY #30 tab 01/13/18 [Rx] hydrALAZINE HCL [Apresoline] 50 mg PO TID #90 tab 01/13/18 [Rx] predniSONE 40 mg PO DAILY #30 tab 01/13/18 [Rx] Follow up Appointment(s)/Referral(s): [facility], [NON-STAFF] - Siri Arcos MD [STAFF PHYSICIAN] - 02/03/18 10:00 am (Please keep previous follow up appointment.) Víctor Smiley MD [Primary Care Provider] - 01/18/18 4:30 pm Patient Instructions/Handouts: Heart Failure (DC), Low-Sodium Diet (DC), Fluid Restriction (DC) Activity/Diet/Wound Care/Special Instructions: Please adhere to a heart-healthy diet with low sodium and high in fruits/ vegetables. Limit total fluid intake to less than 1 L per day. Discharge Disposition: HOME SELF-CARE
[2018-01-13 12:30] VITALS: BP 141/58; PULSE 78; TEMP 97.2
--- NOTE | 2018-01-13 15:28 | P.PN ---
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 Arcos, history of chronic atrial fibrillation the patient is currently off anticoagulation due to concern of upper GI bleed, history of CHF with diastolic dysfunction, history of COPD, hypertension and hyperlipidemia. The patient has had multiple hospitalizations for acute respiratory failure and COPD exacerbation decompensated heart failure. During early hospitalizations the patient was intubated and placed on mechanical ventilator. During an earlier hospitalization the patient also developed a right-sided pleural effusion and the fluid was drained in the fluid was a transudate. The patient coming in yesterday because of a increased shortness of breath and the same time pain across the chest that was done times pressure and other times pleuritic in nature. No significant cough. No hemoptysis. No fever or chills. Apparently the patient has gained about 6 pounds over the past few days.. No major swelling lower extremities. No altered mentation. He is in chronic atrial fibrillation for now based on his EKG. Troponins are mildly elevated and there is obvious troponin leak. No ST segment elevation or depression. D-dimer was minimally elevated at 0.8. The blood gas shows a component of alkalosis probably a combination of respiratory and metabolic alkalosis with a pH of 7.55 and a pCO2 of 36 and pO2 of 60 and this was done and FiO2 of 36%. ProBNP level is 4480. The patient is currently on Lasix 40 g IV every 8 hours. The patient is also on DuoNeb about treatments around the clock, IV Solu Medrol, and the patient will be undergoing a VQ scan this afternoon. Note that the patient's latest almost function tests from 2017 showed an FEV1 of 63% of predicted and the patient has diffusion capacity of 61% of predicted and a total lung capacity was at 99% of predicted. The previously drained pleural fluid was negative for malignancy. On 01/12/2018 patient is seen in follow-up on selective care unit. He is uncomfortable, did wear the BiPAP last night, with pressures of 12 and 5, and 40 %, currently on 4 L per nasal cannula, this is his home dose oxygen, lung sounds are positive for bibasilar crackles, diminished breath sounds overall. He is in -491 mL fluid balance over the last 24 hours, VQ scan showed low probability of pulmonary embolism, yesterday blood gas was obtained, and showed pO2 of 60, pCO2 of 30, and pH of 7.55, consistent with primary respiratory alkalosis, and hypoxemia. No acute distress, he is alert and oriented 3. No complaints of chest pain, still has minimal pretibial edema. He continues on IV heparin. Patient does have a past medical history of GI bleeding, he remains in A. fib, currently not on any anticoagulation on a regular basis related to his history of GI bleed. On 01/23/2018 patient seen in follow-up on selective care unit. He is comfortable, denies any acute distress, denies any chest pain, remains in A. fib , and heparin drip has been discontinued per cardiology. No chronic anticoagulation in view of history of GI bleeding, unless cleared by Dr. Alberts. Vital signs remain stable, patient is afebrile. Does get short of breath with exertion. Lung sounds are diminished, no rales, no rhonchi or wheezes. No fever or chills. Objective - Vital Signs Vital signs: Vital Signs Temp 97.2 F L 01/13/18 11:20 Pulse 78 01/13/18 11:20 Resp 20 01/13/18 11:20 BP 141/58 01/13/18 11:20 Pulse Ox 92 L 01/13/18 11:20 Intake & Output 01/12/18 01/13/18 01/13/18 18:59 06:59 18:59 Intake Total 1800 480 Output Total 600 1250 Balance 1200 -1250 480 Weight 61.4 kg Intake: Oral 1800 480 Output: Urine 600 1250 Other: Voiding Method Urinal Urinal Urinal # Voids 0 300 # Bowel Movements 0 0 - Exam GENERAL EXAM: 72-year-old white male, cachectic, currently on 4 L per nasal cannula, in no acute distress, awake alert, oriented 3 HEAD: Normocephalic/atraumatic. EYES: Normal reaction of pupils, equal size. Conjunctiva pink, sclera white. NOSE: Clear with pink turbinates. THROAT: No erythema or exudates. NECK: No masses, no JVD, no thyroid enlargement, no adenopathy. CHEST: No chest wall deformity. Symmetrical expansion. LUNGS: Equal air entry with no rales, rhonchi or wheezes. Air entry overall is diminished. CVS: Irregular rate and rhythm, consistent with atrial fibrillation., normal S1 and S2, no gallops, no murmurs, no rubs ABDOMEN: Soft, nontender. No hepatosplenomegaly, normal bowel sounds, no guarding or rigidity. EXTREMITIES: No clubbing, no cyanosis, 2+ pulses and upper and lower extremities. No edema MUSCULOSKELETAL: Muscle strength and tone normal. SPINE: No scoliosis or deformity SKIN: No rashes CENTRAL NERVOUS SYSTEM: Sedated. No focal deficits, tone is normal in all 4 extremities. PSYCHIATRIC: Calm, alert and oriented. - Labs CBC & Chem 7: 01/13/18 05:53 01/12/18 11:37 Labs: Abnormal Lab Results - Last 24 Hours (Table) 01/12/18 01/12/18 01/12/18 Range/Units 06:05 06:05 16:55 WBC (3.8-10.6) k/uL RBC (4.30-5.90) m/uL Hgb (13.0-17.5) gm/dL Hct (39.0-53.0) % RDW (11.5-15.5) % Neutrophils # (1.3-7.7) k/uL POC Glucose (mg/dL) 253 H (75-99) mg/dL Iron 30 L (65-175) ug/dL Iron Saturation 10.56 L (15.00-50.00) RBC Folate 1,073 H (280 - 791) ng/mL 01/12/18 01/13/18 01/13/18 Range/Units 21:19 05:53 06:01 WBC 16.0 H (3.8-10.6) k/uL RBC 3.26 L (4.30-5.90) m/uL Hgb 8.6 L (13.0-17.5) gm/dL Hct 27.6 L (39.0-53.0) % RDW 18.8 H (11.5-15.5) % Neutrophils # 13.7 H (1.3-7.7) k/uL POC Glucose (mg/dL) 234 H 141 H (75-99) mg/dL Iron (65-175) ug/dL Iron Saturation (15.00-50.00) RBC Folate (280 - 791) ng/mL Assessment and Plan Plan: 1 acute dyspnea/chest pain. Patient is currently under investigation. Clearly the patient has an acute COPD exacerbation. In addition, the patient is experiencing chest pain and has some minimal troponin leak in the setting of coronary artery disease and previous bypass surgery and previous coronary intervention and stenting. As such cardiology evaluation will be needed to rule out any underlying unstable angina or non-ST segment elevation myocardial infarction. 2 moderate to severe COPD with an acute exacerbation of chronic COPD and secondary shortness of breath 3 CHF with diastolic dysfunction and preserved LV function 4 chronic atrial fibrillation currently unknown to coagulation 5 troponin elevation/leak, currently under investigation 6 coronary artery disease with previous bypass surgery and previous coronary intervention and stenting 7 peripheral vascular disease with previous history of bilateral stenting of the lower extremities 8 hypertension 9 hyperlipidemia 10 chronic anemia 11 acid reflux 12 osteoarthritis 13 previous history of right-sided pleural effusion postthoracentesis and the fluid cytology was negative for malignancy 14 hiatal hernia 15 previous history of GI bleed and the patient had a colonoscopy and EGD back in July 2017 that showed some mild gastritis and colonic polyps. Currently the patient IV heparin 16 hemorrhoids 17 chronic back pain 18 migraine 19 previous history of osteoarthritis Plan: Patient remains stable from pulmonary perspective, breathing easier, has not had any recurrence of chest pain, signs are stable, no fever or chills. Cardiology recommendations were noted. From pulmonary perspective patient is clear for discharge home. Follow-up with Dr. Leavitt in the office in one week I performed a history & physical examination of the patient and discussed their management with my nurse practitioner, Saray Galarza. I reviewed the nurse practitioner's note and agree with the documented findings and plan of care. Lung sounds are positive for diminished breath sounds. The findings and the impression was discussed with the patient. I attest to the documentation by the nurse practitioner. Time with Patient: Less than 30
== END 2018-01-13 15:15 | disposition home health service (06) | DRG 190 ==
LOC: EC 16:20 → 6SEL 19:03
PROVIDERS: ADMIT Internal Medicine; ATTEND Internal Medicine
DX: J44.1 Chronic obstructive pulmonary disease with (acute) exacerbation (principal); I50.33 Acute on chronic diastolic (congestive) heart failure; E87.3 Alkalosis; I13.0 Hypertensive heart and chronic kidney disease with heart failure and stage 1 through stage 4 chronic kidney disease, or unspecified chronic kidney disease; I25.110 Atherosclerotic heart disease of native coronary artery with unstable angina pectoris; I48.1 Persistent atrial fibrillation; N17.9 Acute kidney failure, unspecified; D50.9 Iron deficiency anemia, unspecified; E78.5 Hyperlipidemia, unspecified; G43.909 Migraine, unspecified, not intractable, without status migrainosus; G89.29 Other chronic pain; M54.9 Dorsalgia, unspecified; I08.1 Rheumatic disorders of both mitral and tricuspid valves; F17.290 Nicotine dependence, other tobacco product, uncomplicated; Z95.1 Presence of aortocoronary bypass graft; Z95.5 Presence of coronary angioplasty implant and graft; I25.2 Old myocardial infarction; I73.9 Peripheral vascular disease, unspecified; K21.9 Gastro-esophageal reflux disease without esophagitis; K44.9 Diaphragmatic hernia without obstruction or gangrene; K64.9 Unspecified hemorrhoids; M19.90 Unspecified osteoarthritis, unspecified site; N18.9 Chronic kidney disease, unspecified; R09.02 Hypoxemia; R74.8 Abnormal levels of other serum enzymes; Z79.51 Long term (current) use of inhaled steroids; Z79.82 Long term (current) use of aspirin; Z79.899 Other long term (current) drug therapy; Z86.010 Personal history of colon polyps; Z86.74 Personal history of sudden cardiac arrest; Z87.11 Personal history of peptic ulcer disease; Z87.19 Personal history of other diseases of the digestive system; Z99.81 Dependence on supplemental oxygen; Z95.828 Presence of other vascular implants and grafts; Z98.42 Cataract extraction status, left eye; Z98.41 Cataract extraction status, right eye; Z87.01 Personal history of pneumonia (recurrent); R73.9 Hyperglycemia, unspecified; T38.0X5A Adverse effect of glucocorticoids and synthetic analogues, initial encounter; Z82.61 Family history of arthritis; Z80.9 Family history of malignant neoplasm, unspecified
CPT/HCPCS: 36415; 36600; 71046; 78582; 80048; 80053; 82550; 82553; 82607; 82728; 82747; 82805; 83036; 83540; 83550; 83735; 83880; 84484; 85025; 85379; 85610; 85730; 93005; 94640; 94660; 94760; 96365; 96375; 99291

== ENCOUNTER → 2018-03-20 | Outpatient (CLI) | payer MEDICARE, BC ==
[2018-03-20 15:54] LABS: Anisocytosis Slight; HCT 30.2 % (39.0-53.0); HGB 8.8 gm/dL (13.0-17.5); Hypochromasia Marked; MCH 26.2 pg (25.0-35.0); MCHC 29.1 g/dL (31.0-37.0); Mean Platelet Volume 6.4; Poikilocytosis Slight; RBC 3.35 m/uL (4.30-5.90); RDW 17.4 % (11.5-15.5); WBC 10.6 k/uL (3.8-10.6)
[2018-03-20 15:59] LABS: MCV 90.1 fL (80.0-100.0); Platelet Count 599 k/uL (150-450)
== END | disposition home or self-care (01) ==
LOC: LABPAT 15:08
PROVIDERS: ATTEND Internal Medicine Interventional Cardiology
DX: Z01.812 Encounter for preprocedural laboratory examination (principal); I25.810 Atherosclerosis of coronary artery bypass graft(s) without angina pectoris; I48.1 Persistent atrial fibrillation; I10 Essential (primary) hypertension
CPT/HCPCS: 36415; 80051; 82565; 84520; 85027

== ENCOUNTER → 2018-03-27 | Day surgery (SDC) | payer MEDICARE, BC ==
[~2018-03-27] MED LIST changes: +ALBUTEROL NEBULIZED 2.5 MG/3 ML INHALATION PRN; +ASPIRIN 325 MG TAB PO SCH; +ATORVASTATIN 40 MG TAB PO SCH; -DEXAMETHASONE SOD PHOSPHATE 10 MG/ML 1 ML VIAL IV ONE; +EDOXABAN TOSYLATE 60 MG TABLET PO SCH; +FERROUS SULFATE 325 MG TAB PO SCH; +FUROSEMIDE 40 MG TAB PO SCH; +HYDROcodone/APAP 10-325MG 1 EACH TAB PO PRN; +IPRATROPIUM-ALBUTEROL 3 ML NEB INHALATION SCH; -LACTATED RINGERS 1,000 ML IV SCH; +LIDOCAINE 1% INJ 10MG/ML (20 ML MDV) ONE; +METOPROLOL TARTRATE 50 MG TAB PO SCH; +MIDAZOLAM 2 MG/2 ML VIAL ONE; -MORPHINE SULFATE 4 MG/ML SYRINGE IV PRN; -MOXIFLOXACIN HCL 0.5% DROPS 3 ML BTL OP ONE; +NON-FORMULARY DRUG (Omeprazole 40 MG) PO SCH; -ONDANSETRON ODT 4 MG TAB PO ONE; +PROPOFOL 10 MG/ML 20 ML VIAL IV ONE; +SODIUM CHLORIDE 0.9% 1,000 ML IV SCH; +SYMBICORT 160-4.5 MCG INHALER INHALATION SCH; -TETRACAINE 0.5% OPHTH (PF) DROPS 4 ML BTL OP ONE; -TIMOLOL 0.5% OPHTH DROPS 5 ML BTL OP ONE; +amLODIPine 10 MG TAB PO SCH; +fentaNYL (PF) 50 MCG/ML 2 ML AMP ONE; +hydrALAZINE HCL 50 MG TAB PO SCH; +predniSONE 20 MG TAB PO SCH
[2018-03-27 06:32] VITALS: TEMP 98.1
[2018-03-27 07:35] VITALS: RESP 16
--- NOTE | 2018-03-27 07:49 | ECHOT ---
TRANSESOPHAGEAL ECHOCARDIOGRAM INDICATION: Evaluation left atrial appendage. PROCEDURE: After explaining the procedure to the patient, its risks and the complications, blood pressure, heart rate, O2 saturation was monitored. The throat was sprayed with Cetacaine. He received sedation per anesthesia department. The probe was introduced into the esophagus without difficulty. Images were obtained. Following that, the probe was removed. There was no immediate complication. FINDINGS: Left atrial size is dilated. Left atrial appendage is normal. Left ventricular size and systolic function normal. The aortic valve appears to be normal. Mild thickening of the mitral valve leaflet was noted. The tricuspid valve is normal. Descending thoracic aorta revealed moderate to severe atherosclerotic changes. No pericardial effusion was noted. Contrast bubble study revealed no evidence of shunting across the interatrial septum. Doppler pulse wave and color Doppler obtained and revealed a mild tricuspid with moderate mitral regurgitation. There was no shunting by color Doppler study. CONCLUSION: 1. Dilated left atrium with normal appearance left atrial appendage. 2. Normal left ventricular size and systolic function. 3. Moderate mitral regurgitation with mild tricuspid regurgitation. 4. Moderate to severe atherosclerotic changes of the descending thoracic aorta. 5. No pericardial effusion was noted. MMODL / IJN: [id number] /
--- NOTE | 2018-03-27 07:49 | CE ---
CARDIAC ELECTROPHYSIOLOGY REPORT CARDIOVERSION PROCEDURE NOTE: INDICATION: Atrial fibrillation. PROCEDURE: After explaining the procedure to the patient, its risks and the complications, his blood pressure, heart rate, O2 saturation was monitored. The throat was sprayed with Cetacaine. After performing transesophageal echocardiogram and obtaining sedated state by the anesthesia department, a synchronized biphasic 100 joule and subsequently 200 joule was performed with christian of normal sinus rhythm. There was no immediate complication. MMKAREN / IJN: [id number] /
[2018-03-27 09:34] VITALS: BP 177/75; PULSE 58
== END | disposition home or self-care (01) ==
LOC: CATHCVL 05:24
PROVIDERS: ATTEND Internal Medicine Interventional Cardiology
DX: I48.1 Persistent atrial fibrillation (principal); E78.5 Hyperlipidemia, unspecified; I73.9 Peripheral vascular disease, unspecified; F17.210 Nicotine dependence, cigarettes, uncomplicated; I10 Essential (primary) hypertension; Z95.5 Presence of coronary angioplasty implant and graft; Z95.1 Presence of aortocoronary bypass graft; Z79.899 Other long term (current) drug therapy; Z79.51 Long term (current) use of inhaled steroids; Z79.891 Long term (current) use of opiate analgesic
CPT/HCPCS: 93312; 93320; 93325; 92960; J2250; J2001; J3010; J2704

== ENCOUNTER 2018-11-22 08:05 | Inpatient (IN) | payer MEDICARE, BC ==
[2018-11-22] MEDS ORDERED: NITROGLYCERIN SL TABS 0.4 MG TAB SUBLINGUAL STA (08:15)
--- NOTE | 2018-11-22 08:21 | ED ---
General Adult HPI - General Chief complaint: Shortness of Breath Stated complaint: BRYSON Time Seen by Provider: 11/22/18 08:07 Source: patient, EMS Mode of arrival: EMS Limitations: no limitations - History of Present Illness Initial comments: Dictation was produced using [employer] dictation software. please excuse any grammatical, word or spelling errors. Chief Complaint: 73-year-old male presents chief complaint of dyspnea and chest pain. History of Present Illness: 73-year-old male presents with dyspnea and chest pain. Patient states he woke with the symptoms. Patient has a past medical history of heart failure and COPD. Patient also has multiple other comorbid conditions including myocardial infarction, pneumonia and coronary artery disease. Patient states that upon waking this morning he felt really short of breath. Patient states that his symptoms are worse lying flat. EMS was called patient brought to the emergency department. EMS reports that patient was tachypneic. He was given a breathing treatment for concern of COPD with some improvement of the symptoms. History is limited secondary to medical status and dyspnea. He did report eating salty foods last night. He reports pain in his chest as sharp to his left anterior chest. Chart review was performed and there is no findings to evaluate for patient's ejection fraction. The ROS documented in this emergency department record has been reviewed and confirmed by me. Those systems with pertinent positive or negative responses have been documented in the HPI. All other systems are other negative and/or noncontributory. PHYSICAL EXAM: General Impression: Alert and oriented x3, acute distress secondary to dyspnea HEENT: Normocephalic atraumatic, extra-ocular movements intact, pupils equal and reactive to light bilaterally, mucous membranes moist. Cardiovascular: Heart regular rate and rhythm, S1&S2 audible, no murmurs, rubs or gallops Chest: Bilateral end expiratory wheezing Abdomen: Bowel sounds present, abdomen soft, non-tender, non-distended, no organomegaly Musculoskeletal: Pulses present and equal in all extremities, mild pitting edema Motor: no focal deficits noted Neurological: CN II-XII grossly intact, no focal motor or sensory deficits noted Skin: Intact with no visualized rashes Psych: Normal affect and mood ED course: 73-year-old male with past medical history of heart failure and COPD presents with chief complaint of acute onset dyspnea. Vital signs upon arrival shows blood pressure 180/94, respiratory rate of 24. Plan care bedside ultrasound was performed showing pulmonary lung rockets consistent with congestive heart failure. Given patient's clinical presentation there is concern of acute CHF exacerbation. Patient given sublingual nitroglycerin placed on BiPAP and started on nitroglycerin drip. Patient reevaluated found to be in stable medical condition. He is breathing at a good rate and resting comfortably while on BiPAP. 30 minutes into be in emergency department patient became unresponsive. monitor technician showed polymorphic ventricular tachycardia consistent with torsades de p ointes. Placed on cardiac monitoring given cardioversion with successful cardioversion one time using 200 J biphasic. Patient given 2 g magnesium and 1 g calcium. Repeat EKG was obtained showing no prolonged QT. Laboratory evaluation obtained. Mild leukocytosis of 13.6 likely were secondary to stress. Coag panel unremarkable. Metabolic panel shows creatinine of 1.50. This is around patient's baseline. BUN is 36. There is concern of some mild prerenal azotemia. Glucose 212. She moans 0.070. Since likely secondary to a troponin leak. Patient has baseline elevated troponin nonetheless he is complaining of chest pain he was given aspirin.X-ray of the chest was obtained. Radiology read suggest bibasilar opacities which may be multifocal pneumonia or atelectasis, cardiomegaly. Patient denies any infectious symptoms at this time. Magnesium was discontinued after his magnesium level was returned. They naturally peptide is elevated at 4000. No electrolyte abnormality. Medications were reviewed. This point there is no clear source of patient's episode of cardiac dysrhythmia. Nonetheless he appears stable at this time. Patient is on Xarelto for atrial fibrillation. Given episode of arrhythmia without clear etiology we'll place patient tends care unit for intensive care monitoring. He will be maintained on BiPAP and nitroglycerin infusion. Patient was given Lasix. Discussed patient case with Dr. Alexander who was agreeable with disposition. Discussed patient case with Dr. Denson who is also agreeable to ICU admission. EKG interpretation: Ventricular rate 96, atrial fibrillation, QS 122, QTC 421. No NE prolongation, no QTC prolongation, lateral precordial ST depressions. No ST segment elevation. EKG is not consistent with acute myocardial infarction. - Related Data Home Medications Medication Instructions Recorded Confirmed Aspirin 325 mg PO DAILY 11/22/18 11/22/18 Nitroglycerin Sl Tabs [Nitrostat] 0.4 mg SUBLINGUAL Q5M PRN 11/22/18 11/22/18 Potassium Chloride [Klor-Con 20] 20 meq PO DAILY 11/22/18 11/22/18 Rivaroxaban [Xarelto] 2.5 mg PO BID 11/22/18 11/22/18 Previous Rx's Medication Instructions Recorded Furosemide [Lasix] 40 mg PO BID #60 tab 01/13/18 Metoprolol Tartrate [Lopressor] 50 mg PO TID #90 tab 01/13/18 hydrALAZINE HCL [Apresoline] 50 mg PO TID #90 tab 01/13/18 Allergies Allergy/AdvReac Type Severity Reaction Status Date / Time No Known Allergies Allergy Verified 11/22/18 09:04 Review of Systems ROS Statement: Those systems with pertinent positive or pertinent negative responses have been documented in the HPI. ROS Other: All systems not noted in ROS Statement are negative. Past Medical History Past Medical History: Coronary Artery Disease (CAD), Chest Pain / Angina, Heart Failure, COPD, GERD/Reflux, GI Bleed, Hyperlipidemia, Hypertension, Myocardial Infarction (PR), Osteoarthritis (OA), Pneumonia, Vascular Disorder Additional Past Medical History / Comment(s): See Dr Arcos's H&P. Hiatal hernia with previous history of gastric ulcer, hemorrhoids, chronic back pain, migraines, hx GI bleed. Last Myocardial Infarction Date:: 2006 History of Any Multi-Drug Resistant Organisms: None Reported Past Surgical History: Appendectomy, Coronary Bypass/CABG, Heart Catheterization With Stent Additional Past Surgical History / Comment(s): EGD/COLONOSCOPY WITH POLYPECTOMY, TRIPLE CABG 2006. PCI/STENT IN 2000. STENTS BILATERAL LEGS, BILATERAL CATARACT REMOVAL. Past Anesthesia/Blood Transfusion Reactions: No Reported Reaction Date of Last Stent Placement:: 2000 Past Psychological History: No Psychological Hx Reported Smoking Status: Former smoker Past Alcohol Use History: None Reported Past Drug Use History: None Reported - Past Family History Mother Family Medical History: Cancer, Osteoarthritis (OA) General Exam Limitations: no limitations Course Vital Signs 11/22/18 11/22/18 11/22/18 08:11 08:32 08:46 Temperature 98.1 F Pulse Rate 96 82 60 Respiratory 24 18 18 Rate Blood Pressure 180/94 144/74 169/74 O2 Sat by Pulse 100 98 98 Oximetry 11/22/18 09:07 Temperature Pulse Rate 61 Respiratory 18 Rate Blood Pressure 165/72 O2 Sat by Pulse 100 Oximetry Medical Decision Making - Lab Data Result diagrams: 11/22/18 08:22 11/22/18 08:22 Lab Results 11/22/18 11/22/18 11/22/18 Range/Units 08:22 08:22 08:22 WBC 13.6 H (3.8-10.6) k/uL RBC 3.98 L (4.30-5.90) m/uL Hgb 10.4 L (13.0-17.5) gm/dL Hct 33.3 L (39.0-53.0) % MCV 83.8 (80.0-100.0) fL MCH 26.1 (25.0-35.0) pg MCHC 31.2 (31.0-37.0) g/dL RDW 16.6 H (11.5-15.5) % Plt Count 283 (150-450) k/uL Neutrophils % 76 % Lymphocytes % 16 % Monocytes % 6 % Eosinophils % 1 % Basophils % 0 % Neutrophils # 10.3 H (1.3-7.7) k/uL Lymphocytes # 2.1 (1.0-4.8) k/uL Monocytes # 0.8 (0-1.0) k/uL Eosinophils # 0.1 (0-0.7) k/uL Basophils # 0.0 (0-0.2) k/uL Hypochromasia Slight Anisocytosis Slight PT (9.0-12.0) sec INR (<1.2) APTT (22.0-30.0) sec Sodium 141 (137-145) mmol/L Potassium 4.4 (3.5-5.1) mmol/L Chloride 106 (98-107) mmol/L Carbon Dioxide 23 (22-30) mmol/L Anion Gap 12 mmol/L BUN 36 H (9-20) mg/dL Creatinine 1.50 H (0.66-1.25) mg/dL Est GFR (CKD-EPI)AfAm 52 (>60 ml/min/1.73 sqM) Est GFR (CKD-EPI)NonAf 45 (>60 ml/min/1.73 sqM) Glucose 212 H (74-99) mg/dL Calcium 9.4 (8.4-10.2) mg/dL Magnesium 2.4 H (1.6-2.3) mg/dL Total Bilirubin 0.8 (0.2-1.3) mg/dL AST 31 (17-59) U/L ALT 22 (21-72) U/L Alkaline Phosphatase 69 (38-126) U/L Troponin I (0.000-0.034) ng/mL NT-Pro-B Natriuret Pep 4530 pg/mL Total Protein 6.9 (6.3-8.2) g/dL Albumin 4.0 (3.5-5.0) g/dL 11/22/18 11/22/18 Range/Units 08:22 08:22 WBC (3.8-10.6) k/uL RBC (4.30-5.90) m/uL Hgb (13.0-17.5) gm/dL Hct (39.0-53.0) % MCV (80.0-100.0) fL MCH (25.0-35.0) pg MCHC (31.0-37.0) g/dL RDW (11.5-15.5) % Plt Count (150-450) k/uL Neutrophils % % Lymphocytes % % Monocytes % % Eosinophils % % Basophils % % Neutrophils # (1.3-7.7) k/uL Lymphocytes # (1.0-4.8) k/uL Monocytes # (0-1.0) k/uL Eosinophils # (0-0.7) k/uL Basophils # (0-0.2) k/uL Hypochromasia Anisocytosis PT 9.9 (9.0-12.0) sec INR 0.9 (<1.2) APTT 22.7 (22.0-30.0) sec Sodium (137-145) mmol/L Potassium (3.5-5.1) mmol/L Chloride (98-107) mmol/L Carbon Dioxide (22-30) mmol/L Anion Gap mmol/L BUN (9-20) mg/dL Creatinine (0.66-1.25) mg/dL Est GFR (CKD-EPI)AfAm (>60 ml/min/1.73 sqM) Est GFR (CKD-EPI)NonAf (>60 ml/min/1.73 sqM) Glucose (74-99) mg/dL Calcium (8.4-10.2) mg/dL Magnesium (1.6-2.3) mg/dL Total Bilirubin (0.2-1.3) mg/dL AST (17-59) U/L ALT (21-72) U/L Alkaline Phosphatase (38-126) U/L Troponin I 0.070 H* (0.000-0.034) ng/mL NT-Pro-B Natriuret Pep pg/mL Total Protein (6.3-8.2) g/dL Albumin (3.5-5.0) g/dL Disposition Clinical Impression: CHF exacerbation, Torsades de pointes Disposition: ADMITTED IP TO THIS HOSP Condition: Critical Referrals: Víctor Smiley MD [Primary Care Provider] - 1-2 days Decision Time: 09:35
[2018-11-22] MEDS: NITROGLYCERIN-D5W PMX 50 MG in DEXTROSE/WATER 1 250ML.BAG IV ONE (08:26)
[2018-11-22 08:33] LABS: Anisocytosis Slight; Basophils % (A) 0 %; Eosinophils # (A) 0.1 k/uL (0-0.7); Eosinophils % (A) 1 %; HCT 33.3 % (39.0-53.0); HGB 10.4 gm/dL (13.0-17.5); Hypochromasia Slight; Lymphocytes # (A) 2.1 k/uL (1.0-4.8); Lymphocytes % (A) 16 %; MCH 26.1 pg (25.0-35.0); MCHC 31.2 g/dL (31.0-37.0); MCV 83.8 fL (80.0-100.0); Monocytes # (A) 0.8 k/uL (0-1.0); Monocytes % (A) 6 %; Neutrophils # (A) 10.3 k/uL (1.3-7.7); Neutrophils % (A) 76 %; Platelet Count 283 k/uL (150-450); RBC 3.98 m/uL (4.30-5.90); RDW 16.6 % (11.5-15.5); WBC 13.6 k/uL (3.8-10.6)
[2018-11-22] MEDS ORDERED: CALCIUM CHLORIDE 1 GM/10 ML VIAL IV ONE (08:37)
[2018-11-22] MEDS ORDERED: CALCIUM CHLORIDE 1,000 MG in SODIUM CHLORIDE 0.9% 100 ML IV STA (08:40)
[2018-11-22 08:42] LABS: INR 0.9 (<1.2); Partial Thromboplastin Time 22.7 sec (22.0-30.0); Prothrombin Time 9.9 sec (9.0-12.0)
[2018-11-22 08:45] LABS: Calcium 9.4 mg/dL (8.4-10.2); Magnesium 2.4 mg/dL (1.6-2.3); Potassium 4.4 mmol/L (3.5-5.1); Total Bilirubin 0.8 mg/dL (0.2-1.3); Total Protein 6.9 g/dL (6.3-8.2)
[2018-11-22] MEDS ORDERED: MAGNESIUM SULFATE-D5W PMX 1 GM in DEXTROSE/WATER 1 100ML.BAG IVPB SCH (08:45)
--- NOTE | 2018-11-22 08:58 | XR ---
EXAMINATION TYPE: XR chest 1V DATE OF EXAM: 11/22/2018 COMPARISON: 01/10/2018 HISTORY: Difficulty breathing with history of COPD TECHNIQUE: Single frontal view of the chest is obtained. FINDINGS: There is an enlarged cardiomediastinal silhouette with post CABG changes. New bibasilar op acities are seen. Peribronchial cuffing is also present. Pulmonary hyperinflation is noted with biapi beena lucency representing the patient's known COPD. Blunting of the costophrenic angles is chronic and likely relates to pleural reaction. IMPRESSION: 1. New bibasilar opacities may be on the basis of multifocal pneumonia or atelectasis. 2. Progressive enlargement of the cardiomediastinal silhouette. Echocardiogram could assess for cardi ac function and the possible presence of pericardial effusion. 3. Peribronchial cuffing may represent reactive or infectious airway disease in this patient with und erlying COPD.
[2018-11-22] MEDS ORDERED: FUROSEMIDE 10 MG/ML 4 ML VIAL IV STA (09:07)
[2018-11-22] MEDS ORDERED: ASPIRIN 81 MG PO STA (09:23)
[2018-11-22] MEDS ORDERED: NALOXONE 0.4 MG/ML 1 ML VIAL IV PRN (09:27)
[2018-11-22] MEDS: SODIUM CHLORIDE 0.9% 1,000 ML IV SCH (09:38)
[2018-11-22 10:35] LABS: Glucose,Whole Blood 178 mg/dL (75-99)
[2018-11-22] MEDS ORDERED: NITROGLYCERIN SL TABS 0.4 MG TAB SUBLINGUAL PRN (11:21)
[2018-11-22] MEDS: INSULIN ASPART (NovoLOG) 100 UNIT/ML VIAL SQ SCH ×3 (11:31→20:49)
[2018-11-22] MEDS: IPRATROPIUM-ALBUTEROL 3 ML NEB INHALATION SCH ×3 (11:36→19:48)
[2018-11-22] MEDS: CLEVIDIPINE BUTYRATE 25 MG in EMPTY BAG 1 BAG IV SCH ×3 (12:54→18:34)
[2018-11-22] MEDS: hydrALAZINE HCL 50 MG TAB PO SCH ×3 (13:01→22:03)
[2018-11-22] MEDS ORDERED: MELATONIN 3 MG TABLET PO PRN (15:19)
--- NOTE | 2018-11-22 15:32 | P.HPIM ---
History of Present Illness H&P Date: 11/22/18 (Delayed charting patient seen at noon) Chief Complaint: Chest pain and shortness of breath Patient is a 73-year-old male past medical history of atrial fibrillation, congestive heart failure with preserved ejection fraction of 55%, coronary artery disease with history of myocardial infarction and three-vessel bypass in 2006, hypertension, dyslipidemia, COPD, and chronic hypoxic respiratory failure on 4 L nasal cannula who presented to the ER via EMS for chest pain and shortness of breath. In the ER he underwent an extensive evaluation. Initially on arrival he his pulse was 96 and blood pressure was 180/94. He was in acute respiratory distress and was subsequently placed on BiPAP therapy. Apparently bedside ultrasound was done in the ER consistent with pulmonary edema. He was started on a nitro drip. Approximately 30 minutes later he went into polymorphic tachycardia consistent with torsades and loss of consciousness. He required cardioversion 1 and he was given magnesium. Initial laboratory analysis showed an elevated white blood cell count at 13, hemoglobin of 10.4, creatinine of 1.5 which appears to be baseline, and glucose of 212. His potassium was normal at 4.4, magnesium slightly high at 2.4, and calcium was normal at 9.4. Initial BNP was elevated at 4530. Initial troponin was elevated at 0.070. Chest x-ray showed new basilar opacities consistent with multi focal pneumonia or atelectasis. He was given a dose of aspirin and Lasix. Arrangements were made for admission to the ICU. Cardiology and critical care were consulted. He was started on clevidipine gtt. Patient seen and examined at bedside. He is on active respiratory distress on BiPAP therapy. It is difficult to obtain history. He states that he began havi ng chest pain approximately 2 days ago associated with shortness of breath. He ran out of his aspirin and potassium but has been taking his other medications. He reports the chest pain as retrosternal and midline without radiation associated with shortness of breath, no numbness and tingling, no nausea, no lightheadedness or dizziness, and it is constant in nature. He describes it as a tightness. He is unsure if this is similar to his prior heart attacks. He does note some wheezing. He reports some subjective fevers and chills. He denies any cough. He does report a headache. He does report history of cardioversion 1 in the past, however this appears to be associated with atrial fibrillation and not significant arrhythmia. He typically follows with Dr. Arcos and Dr. De Paz for pulmonary. He denies any recent changes in medication. Due to severity of his shortness of breath and inability to participate in history taking medical history is verified with the patient as well as a thorough review of prior medical records including hospitalization last year in January 2018. Review of Systems Pertinent positives and negatives as discussed in HPI, a complete review of systems was performed and all other systems are negative. Past Medical History Past Medical History: Atrial Fibrillation, Coronary Artery Disease (CAD), Chest Pain / Angina, Heart Failure, COPD, Eye Disorder, GERD/Reflux, GI Bleed, Hyperlipidemia, Hypertension, Myocardial Infarction ([place]), Osteoarthritis (OA), Pneumonia, Vascular Disorder Additional Past Medical History / Comment(s): Hiatal hernia with previous history of gastric ulcer, hemorrhoids, chronic back pain, migraines, hx GI bleed, sydni cataract removal. Last Myocardial Infarction Date:: 2006 History of Any Multi-Drug Resistant Organisms: None Reported Past Surgical History: Appendectomy, Coronary Bypass/CABG, Heart Catheterization With Stent Additional Past Surgical History / Comment(s): EGD/COLONOSCOPY WITH POLYPECTOMY, TRIPLE CABG 2006. PCI/STENT IN 2000. STENTS BILATERAL LEGS, BILATERAL CATARACT REMOVAL. Past Anesthesia/Blood Transfusion Reactions: No Reported Reaction Date of Last Stent Placement:: 2000 Past Psychological History: No Psychological Hx Reported Additional Psychological History / Comment(s): Pt resides with his spouse. He uses a cane to ambulate. He drives. Smoking Status: Former smoker Past Alcohol Use History: None Reported Additional Past Alcohol Use History / Comment(s): SMOKED FROM AGE 12, 1/2 PPD, QUIT 2006. Past Drug Use History: None Reported Additional History: Lives with his spouse, uses 4 L nasal cannula at home - Past Family History Mother Family Medical History: Cancer, Osteoarthritis (OA) Medications and Allergies Home Medications Medication Instructions Recorded Confirmed Type Furosemide [Lasix] 40 mg PO BID #60 tab 01/13/18 11/22/18 Rx Metoprolol Tartrate [Lopressor] 50 mg PO TID #90 tab 01/13/18 11/22/18 Rx hydrALAZINE HCL [Apresoline] 50 mg PO TID #90 tab 01/13/18 11/22/18 Rx Aspirin 325 mg PO DAILY 11/22/18 11/22/18 History Nitroglycerin Sl Tabs [Nitrostat] 0.4 mg SUBLINGUAL Q5M PRN 11/22/18 11/22/18 History Potassium Chloride [Klor-Con 20] 20 meq PO DAILY 11/22/18 11/22/18 History Rivaroxaban [Xarelto] 2.5 mg PO BID 11/22/18 11/22/18 History Allergies Allergy/AdvReac Type Severity Reaction Status Date / Time No Known Allergies Allergy Verified 11/22/18 09:04 Physical Exam Osteopathic Statement: *. No significant issues noted on an osteopathic structural exam other than those noted in the History and Physical/Consult. Vitals: Vital Signs Temp Pulse Resp BP Pulse Ox 11/22/18 14:00 64 19 144/72 97 11/22/18 13:45 59 L 153/69 98 11/22/18 13:30 68 147/62 98 11/22/18 13:15 65 170/67 95 11/22/18 13:00 55 L 16 155/69 98 11/22/18 12:45 58 L 156/70 99 11/22/18 12:30 53 L 166/75 99 11/22/18 12:15 54 L 157/68 97 11/22/18 12:00 19 F L 51 L 20 167/77 99 11/22/18 11:53 55 L 11/22/18 11:45 58 L 178/89 99 11/22/18 11:36 56 L 11/22/18 11:30 59 L 188/77 98 11/22/18 11:15 55 L 197/79 98 11/22/18 11:00 60 15 188/78 99 11/22/18 10:45 54 L 187/78 98 11/22/18 10:30 97.4 F L 58 L 201/76 99 11/22/18 10:19 58 L 20 11/22/18 09:44 58 L 16 181/83 100 11/22/18 09:07 61 18 165/72 100 11/22/18 08:46 60 18 169/74 98 11/22/18 08:32 82 18 144/74 98 11/22/18 08:11 98.1 F 96 24 180/94 100 Intake and Output 11/21/18 11/22/18 11/22/18 22:59 06:59 14:59 Intake Total 172.167 Output Total 350 Balance -177.833 Intake: IV 161.5 Nitroglycerin-D5w Pmx 50 61.5 mg In Dextrose/Water 1 250ml.bag @ 5 MCG/MIN 1.5 mls/hr IV .Q24H [facility] Rx#: [id number] Sodium Chloride 0.9% 1, 100 000 ml @ 20 mls/hr IV . Q24H [facility] Rx#:[id number] Intake, IV Titration 10.667 Amount Clevidipine Butyrate 25 0.467 mg In Empty Bag 1 bag @ 1 MG/HR 2 mls/hr IV .Q24H [facility] Rx#:[id number] Nitroglycerin-D5w Pmx 50 10.2 mg In Dextrose/Water 1 250ml.bag @ 5 MCG/MIN 1.5 mls/hr IV .Q24H [facility] Rx#: [id number] Output: Urine 350 Other: Voiding Method Urinal Weight 68.039 kg General: Ill-appearing, moderate distress, appears at stated age, normal weight Derm: no unusual rashes/lesions multiple areas ecchymoses, warm, dry Head: atraumatic, normocephalic, symmetric Eyes: EOMI, no lid lag, anicteric sclera, pupils equal round reactive to light ENT: Nose and ears atraumatic, BiPAP in place Neck: No thyromegaly, no cervical lymphadenopathy, trachea midline, supple Mouth: no lip lesion, mucus membranes moist Cardiovascular: S1-S2 regular, positive posterior tibial pulse bilateral, no edema, capillary refill less than 2 seconds Lungs: Coarse breath sounds bilateral, no rhonchi, no rales , 3 word conversational dyspnea, on BiPAP Abdominal: soft, nontender to palpation, no guarding, no appreciable organomegaly, normal bowel sounds Ext: no gross muscle atrophy, muscle strength 5 out of 5 in all 4 extremities grossly, no contractures, Neuro: CN II-XI grossly intact, light touch intact all 4 extremities, finger to nose within normal limits, Psych: Alert, oriented, appropriate affect Results CBC & Chem 7: 11/22/18 08:22 11/22/18 08:22 Labs: Abnormal Lab Results - Last 24 Hours (Table) 08/14/19 08/14/19 08/14/19 Range/Units 08:22 08:22 08:22 WBC 13.6 H (3.8-10.6) k/uL RBC 3.98 L (4.30-5.90) m/uL Hgb 10.4 L (13.0-17.5) gm/dL Hct 33.3 L (39.0-53.0) % RDW 16.6 H (11.5-15.5) % Neutrophils # 10.3 H (1.3-7.7) k/uL BUN 36 H (9-20) mg/dL Creatinine 1.50 H (0.66-1.25) mg/dL Glucose 212 H (74-99) mg/dL POC Glucose (mg/dL) (75-99) mg/dL Magnesium 2.4 H (1.6-2.3) mg/dL Troponin I 0.070 H* (0.000-0.034) ng/mL 11/22/18 Range/Units 10:23 WBC (3.8-10.6) k/uL RBC (4.30-5.90) m/uL Hgb (13.0-17.5) gm/dL Hct (39.0-53.0) % RDW (11.5-15.5) % Neutrophils # (1.3-7.7) k/uL BUN (9-20) mg/dL Creatinine (0.66-1.25) mg/dL Glucose (74-99) mg/dL POC Glucose (mg/dL) 178 H (75-99) mg/dL Magnesium (1.6-2.3) mg/dL Troponin I (0.000-0.034) ng/mL Comments: EKG- Initial appears A fib Chest x-ray: report reviewed Thrombosis Risk Factor Assmnt - DVT/VTE Prophylaxis DVT/VTE Prophylaxis: Pharmacologic Prophylaxis ordered - Choose All That Apply Each Factor Represents 1 point: Abnormal pulmonary function (COPD), Medical pt on bed rest Other Risk Factors: Yes Each Risk Factor Represents 2 Points: Patient confined to bed Each Risk Factor Represents 3 Points: Age 75 years or older Other congenital or acquired thrombophilia - If yes, enter type in comment: No Thrombosis Risk Factor Assessment Total Risk Factor Score: 7 Thrombosis Risk Factor Assessment Level: High Risk Assessment and Plan Assessment: Acute on chronic hypoxic respiratory failure - diuresis - bipap - wean O2 as able is on 4L at home Torsade de Pointes with history of atrial fibrillation - potassium and magnesium levels are normal - tele - monitor in ICU - cardio consult - echo - Converted to sinus bradycardia with PACs and beta kandis has subsequently been held - Continue with Xarelto Elevated Troponin - likely due to arrhythmia and CKD - Trand troponin - ASA - Cardio Acute fluid overload, possible AE CHF EF 55% - Continue with Lasix -Repeat chest x-ray in a.m. -Hold Lopressor secondary to sinus bradycardia if heart rate is less than 60 -On WHIT inhibitor at baseline -Check echo -Strict I's and O's -Daily weight Hypertensive urgency -Continue with nitro drip, hydralazine, Clevidipine -Follow blood pressures Chronic kidney disease stage III -Creatinine the near baseline at 1.5 - avoid additional nephrotoxic agents - follow BMP COPD without exacerbation - prn duonebrs Chronic: Arthritis Chronic low back pain History of gastric ulcers DVT prophylaxis: Xarelto Discussed with: patient, ICU nursing, Dr. Simeon, Dr. Denson Anticipated discharge: 3-[address]: home with home health A total of [65] minutes was spent on the care of this complex patient more than 50% of the time was spent in counseling and care coordination.
[2018-11-22] MEDS ORDERED: HEPARIN SODIUM,PORCINE 5,000 UNIT/ML 1 ML VIAL IV ONE (15:54)
--- NOTE | 2018-11-22 15:54 | P.CNPUL ---
History of Present Illness Consult date: 11/22/18 Reason for consult: dyspnea, hypoxemia History of present illness: This is a 73-year-old male patient with extensive cardiac history including c oronary artery disease with previous bypass surgery, chronic A. fib, diastolic heart failure, hypertension and hyperlipidemia and COPD with chronic hypoxic respiratory failure maintained on oxygen at 4 L per minute nasal cannula with an FEV1 of 63% of predicted, diffusion capacity of 61% predicted and total lung capacity of 99% of predicted. The patient's developed an acute shortness of breath. He felt some chest discomfort subsequently was unable to breathe. He asked to be moved to the hospital. The patient was brought via EMS. The patient admitted that he was progressively getting more short of breath and he had difficulties and laying down flat. He was quite tachypneic at a time of admission and the blood pressure was also elevated. Chest x-ray showed cardiomegaly and pulmonary edema. The initial blood pressure was 180/94 in the patient's respiratory rate was 24. Based on all this, the patient was given diuretics. The patient was started on a nitroglycerin drip. The patient was placed on a BiPAP. 30 minutes while being in the emergency, the patient became acutely unresponsive. engine monitor showed polymorphic ventricular tachycardia consistent with torsade de pointes. Based on this, the patient wound received an immediate cardioversion with 200 J biphasic and the patient was also given 2 g of magnesium 1 g of calcium. The cardioversion was successful. EKG showed no significant abnormalities or prolongation of the QT. The patient is currently in normal sinus rhythm with PACs and the patient has a 70 her conduction delay, probably a left bundle branch block pattern. The first set of cardiac enzymes showed a troponin of 0.07. BNP was 4530. Creatinine is at 1.5 with a BUN of 36. The patient got transferred to the intensive care unit and while on the BiPAP. The patient is on a BiPAP pressure of 14/7 cm of water with an FiO2 of 40%. Is receiving Lasix 40 mg IV push every 12 hours. He is on long-term articulation with Xarelto 2.5 mg twice a day. He was started on clevidipine drip for tighter blood pressure control. He was also restarted back on hydralazine and metoprolol. Nitroglycerin drip is also running at 5 g per minute. No chest pain. No back pain. No arm pain. No neck pain. No further episodes of arrhythmias at this point in time. Echocardiogram is to follow. Cardiology consultation is to follow. Review of Systems Constitutional: Reports fatigue, Reports poor appetite, Reports weakness Eyes: denies as per HPI, denies blurred vision, denies bulging eye, denies decreased vision, denies diplopia, denies discharge, denies dry eye, denies irritation, denies itching, denies pain, denies photophobia, denies loss of peripheral vision, denies loss of vision, denies tunnel vision/blind spots Ears: deny: decreased hearing, ear discharge, earache, tinnitus Ears, nose, mouth and throat: Denies headache, Denies sore throat Cardiovascular: Reports chest pain, Reports decreased exercise tolerance, Reports dyspnea on exertion, Reports high blood pressure, Reports irregular heart beat, Reports orthopnea, Reports shortness of breath Respiratory: Reports dyspnea, Reports home oxygen Gastrointestinal: Denies abdominal pain, Denies diarrhea, Denies nausea, Denies vomiting Genitourinary: Reports as per HPI Musculoskeletal: Reports as per HPI Musculoskeletal: absent: ankle pain, ankle stiffness, ankle swelling Integumentary: Denies pruritus, Denies rash Neurological: Reports as per HPI, Reports weakness Psychiatric: Reports as per HPI Endocrine: Reports as per HPI Hematologic/Lymphatic: Reports as per HPI Allergic/Immunologic: Reports as per HPI Past Medical History Past Medical History: Atrial Fibrillation, Coronary Artery Disease (CAD), Chest Pain / Angina, Heart Failure, COPD, Eye Disorder, GERD/Reflux, GI Bleed, Hyperlipidemia, Hypertension, Myocardial Infarction ([place]), Osteoarthritis (OA), Pneumonia, Vascular Disorder Additional Past Medical History / Comment(s): Coronary artery disease with previous bypass surgery in 2006, previous coronary artery stenting in 2000, CHF with diastolic dysfunction and the patient is a preserved LV function based on recent echocardiogram, COPD with an FEV1 of 63% of predicted, hypertension, h yperlipidemia, acid reflux, osteoarthritis, previous history of right-sided pleural effusion secondary to CHF, recovered, chronic atrial fibrillation, hiatal hernia with previous history of gastric ulcer and the patient had a EGD and colonoscopy that was done in July 2017 indicating gastritis with negative H. pylori and the patient had some colonic polyps the jewel bearing turner to be benign and a were resected via polypectomy. Patient has also hemorrhoids, chronic back pain, migraine, acid reflux, previous history of GI bleed, osteoarthritis, peripheral vascular disease Last Myocardial Infarction Date:: 2006 History of Any Multi-Drug Resistant Organisms: None Reported Past Surgical History: Appendectomy, Coronary Bypass/CABG, Heart Catheterization With Stent Additional Past Surgical History / Comment(s): EGD/COLONOSCOPY WITH POLYPECTOMY, TRIPLE CABG 2006. PCI/STENT IN 2000. STENTS BILATERAL LEGS, BILATERAL CATARACT REMOVAL. Past Anesthesia/Blood Transfusion Reactions: No Reported Reaction Date of Last Stent Placement:: 2000 Past Psychological History: No Psychological Hx Reported Additional Psychological History / Comment(s): Pt resides with his spouse. He uses a cane to ambulate. He drives. Smoking Status: Former smoker Past Alcohol Use History: None Reported Additional Past Alcohol Use History / Comment(s): SMOKED FROM AGE 12, 1/2 PPD, QUIT 2006. Past Drug Use History: None Reported - Past Family History Mother Family Medical History: Cancer, Osteoarthritis (OA) Medications and Allergies Home Medications Medication Instructions Recorded Confirmed Type Furosemide [Lasix] 40 mg PO BID #60 tab 01/13/18 11/22/18 Rx Metoprolol Tartrate [Lopressor] 50 mg PO TID #90 tab 01/13/18 11/22/18 Rx hydrALAZINE HCL [Apresoline] 50 mg PO TID #90 tab 01/13/18 11/22/18 Rx Aspirin 325 mg PO DAILY 11/22/18 11/22/18 History Nitroglycerin Sl Tabs [Nitrostat] 0.4 mg SUBLINGUAL Q5M PRN 11/22/18 11/22/18 History Potassium Chloride [Klor-Con 20] 20 meq PO DAILY 11/22/18 11/22/18 History Rivaroxaban [Xarelto] 2.5 mg PO BID 11/22/18 11/22/18 History Allergies Allergy/AdvReac Type Severity Reaction Status Date / Time No Known Allergies Allergy Verified 11/22/18 09:04 Physical Exam Vitals: Vital Signs Temp Pulse Resp BP Pulse Ox 11/22/18 14:00 64 19 144/72 97 11/22/18 13:45 59 L 153/69 98 11/22/18 13:30 68 147/62 98 11/22/18 13:15 65 170/67 95 11/22/18 13:00 55 L 16 155/69 98 11/22/18 12:45 58 L 156/70 99 11/22/18 12:30 53 L 166/75 99 11/22/18 12:15 54 L 157/68 97 11/22/18 12:00 19 F L 51 L 20 167/77 99 11/22/18 11:53 55 L 11/22/18 11:45 58 L 178/89 99 11/22/18 11:36 56 L 11/22/18 11:30 59 L 188/77 98 11/22/18 11:15 55 L 197/79 98 11/22/18 11:00 60 15 188/78 99 11/22/18 10:45 54 L 187/78 98 11/22/18 10:30 97.4 F L 58 L 201/76 99 11/22/18 10:19 58 L 20 11/22/18 09:44 58 L 16 181/83 100 11/22/18 09:07 61 18 165/72 100 11/22/18 08:46 60 18 169/74 98 11/22/18 08:32 82 18 144/74 98 11/22/18 08:11 98.1 F 96 24 180/94 100 Intake and Output 11/22/18 11/22/18 11/22/18 06:59 14:59 22:59 Intake Total 172.167 Output Total 350 Balance -177.833 Intake: IV 161.5 Nitroglycerin-D5w Pmx 50 61.5 mg In Dextrose/Water 1 250ml.bag @ 5 MCG/MIN 1.5 mls/hr IV .Q24H [facility] Rx#: [id number] Sodium Chloride 0.9% 1, 100 000 ml @ 20 mls/hr IV . Q24H [facility] Rx#:[id number] Intake, IV Titration 10.667 Amount Clevidipine Butyrate 25 0.467 mg In Empty Bag 1 bag @ 1 MG/HR 2 mls/hr IV .Q24H [facility] Rx#:[id number] Nitroglycerin-D5w Pmx 50 10.2 mg In Dextrose/Water 1 250ml.bag @ 5 MCG/MIN 1.5 mls/hr IV .Q24H [facility] Rx#: [id number] Output: Urine 350 Other: Voiding Method Urinal Weight 68.039 kg GENERAL EXAM: 72-year-old white male, cachectic, currently on 14/7 BiPAP with an FiO2 of 40%. The patient is able to tolerate the BiPAP without any major difficulties. HEAD: Normocephalic/atraumatic. EYES: Normal reaction of pupils, equal size. Conjunctiva pink, sclera white. NOSE: Clear with pink turbinates. THROAT: No erythema or exudates. NECK: No masses, no JVD, no thyroid enlargement, no adenopathy. CHEST: No chest wall deformity. Symmetrical expansion. LUNGS: Equal air entry with minimal crackles at the lung bases and the patient is prolongation of expiratory phase of breathing and scattered expiratory wheezes heard throughout the lung randolph. Air entry overall is diminished. CVS: Irregular rate and rhythm, consistent with atrial fibrillation., normal S1 and S2, no gallops, no murmurs, no rubs ABDOMEN: Soft, nontender. No hepatosplenomegaly, normal bowel sounds, no guarding or rigidity. EXTREMITIES: No clubbing, no cyanosis, 1+ pulses and upper and lower extremities. No edema MUSCULOSKELETAL: Muscle strength and tone normal. SPINE: No scoliosis or deformity SKIN: No rashes CENTRAL NERVOUS SYSTEM: Sedated. No focal deficits, tone is normal in all 4 extremities. PSYCHIATRIC: Calm, alert and oriented. Results - Laboratory Findings CBC and BMP: 11/22/18 08:22 11/22/18 08:22 PT/INR, D-dimer PT 9.9 sec (9.0-12.0) 11/22/18 08:22 INR 0.9 (<1.2) 11/22/18 08:22 Abnormal lab findings: Abnormal Labs 11/22/18 11/22/18 11/22/18 08:22 08:22 08:22 WBC 13.6 H RBC 3.98 L Hgb 10.4 L Hct 33.3 L RDW 16.6 H Neutrophils # 10.3 H BUN 36 H Creatinine 1.50 H Glucose 212 H POC Glucose (mg/dL) Magnesium 2.4 H Troponin I 0.070 H* 11/22/18 10:23 WBC RBC Hgb Hct RDW Neutrophils # BUN Creatinine Glucose POC Glucose (mg/dL) 178 H Magnesium Troponin I - Diagnostic Findings Chest x-ray: image reviewed Assessment and Plan Plan: 1 acute hypoxic respiratory failure secondary to acute pulmonary edema, currently on BiPAP at a pressure of 14/7 cm of water and FiO2 of 40%. 2 acute hypertensive emergency, currently on IV Cleviprex for blood pressure control 3 acute torsade de pointes, polymorphic V. tach, post successful cardioversion with 200 J 4 chronic atrial fibrillation with long-term articulation with Xarelto 5 coronary artery disease with previous bypass surgery and previous coronary intervention and stenting. The patient has some nonspecific EKG changes and there is a limited troponin leak. A setting of an acute polymorphic V. tach, the patient would likely need further investigation including a cardiac catheterization later stage. 7 peripheral vascular disease with previous history of bilateral stenting of the lower extremities 8 chronic stage III kidney disease 9 hyperlipidemia 10 chronic anemia, chronic anemia 11 acid reflux 12 osteoarthritis 13 previous history of right-sided pleural effusion postthoracentesis and the fluid cytology was negative for malignancy 14 hiatal hernia 15 previous history of GI bleed and the patient had a colonoscopy and EGD back in July 2017 that showed some mild gastritis and colonic polyps. Currently the patient and to coagulation with 16 hemorrhoids 17 chronic back pain 18 migraine 19 previous history of osteoarthritis 20 hypertension, poorly controlled 21 COPD with an FEV1 of 63% of predicted at baseline Plan Continue Cleviprex for blood pressure control. Continue Lopressor and monitor the cardiac rhythm. Wean off the BiPAP and transition this patient to high flow oxygen to maintain a saturation above 90%. Continued IV Lasix. Stop the anticoagulation for now but the patient IV heparin pending cardiac catheterization with the next 24-48 hours. Monitor renal function. Keep the patient ICU for now. Condition is critical. We'll follow.
--- NOTE | 2018-11-22 16:02 | P.CRDCN ---
History of Present Illness Consult date: 11/22/18 Chief complaint: Chest pain History of present illness: This is a pleasant 73-year-old gentleman who sees Dr. Arcos as an outpatient with a past medical history significant for coronary artery disease and prior coronary revascularization in the term of stenting as well as CABG, severe peripheral arterial disease, prior peripheral revascularization, paroxysmal atrial fibrillation, hypertension, dyslipidemia, was admitted to the intensive care unit after he sustained a witnessed cardiac arrest in the emergency room here. The patient does have CAD and in 2006 he received 3 bypasses, he received VILLALBA to LAD, SVG to left circumflex, and SVG to right coronary artery. Beside that, he does have severe peripheral arterial disease and in 2018, he underwent bilateral iliac stenting. The patient somewhat is a poor historian and the history was taken from him as well as from his in the room. For the last 3 days, he has been experiencing chest discomfort, in the center of the chest, without any radiation to the arm or neck or shoulders, and according to his , discomfort was worse with exertion. The discomfort also was associated with sweating sometimes. Currently her today at home, the patient did have an episode of loss of consciousness, the loss of consciousness episode happened with his in the room who called his son to come but the tightness on the right the patient regained his consciousness again. Because of that he was brought to the emergency room. In the emergency room today, the patient did have an episode of V. fib/torsade where he received a shock and was brought to normal sinus mechanism. Also he was given IV Lasix because it was felt that the patient was in fluid overload. Subsequently he was admitted to intensive care unit. Currently he is chest pain-free. He is hemodynamically stable beside being hypertensive. He is tachycardic but he did not receive any dose of metoprolol today. He was receiving oral anticoagulation for the A. fib with Xarelto. The chest x-ray did not show any acute abnormalities. The BNP came in to be about 3000. The EKG showed sinus mechanism with ST changes in the inferolateral leads. I did compare the EKG this time to prior EKG in 2018 and definitely there is T-wave inversion in the lateral leads. The troponin, first set came in to be abnormal. The patient is in process of receiving 2 more sets of cardiac enzymes. Also an echocardiogram was ordered. The oral anticoagulation with Xarelto was stopped at this point. I did recommend proceeding with coronary angiogram giving the chest discomfort, cardiac arrest, ischemic ST and T wave abnormalities on the EKG, and the underlying coronary artery disease and prior coronary revascularization. The patient and his are in agreement with that. Past Medical History Past Medical History: Atrial Fibrillation, Coronary Artery Disease (CAD), Chest Pain / Angina, Heart Failure, COPD, Eye Disorder, GERD/Reflux, GI Bleed, Hyperlipidemia, Hypertension, Myocardial Infarction ([place]), Osteoarthritis (OA), Pneumonia, Vascular Disorder Additional Past Medical History / Comment(s): Coronary artery disease with previous bypass surgery in 2006, previous coronary artery stenting in 2000, CHF with diastolic dysfunction and the patient is a preserved LV function based on recent echocardiogram, COPD with an FEV1 of 63% of predicted, hypertension, hyperlipidemia, acid reflux, osteoarthritis, previous history of right-sided pleural effusion secondary to CHF, recovered, chronic atrial fibrillation, hiatal hernia with previous history of gastric ulcer and the patient had a EGD and colonoscopy that was done in July 2017 indicating gastritis with negative H. 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 Patient has also hemorrhoids, chronic back pain, migraine, acid reflux, previous history of GI bleed, osteoarthritis, peripheral vascular disease Last Myocardial Infarction Date:: 2006 History of Any Multi-Drug Resistant Organisms: None Reported Past Surgical History: Appendectomy, Coronary Bypass/CABG, Heart Catheterization With Stent Additional Past Surgical History / Comment(s): EGD/COLONOSCOPY WITH POLYPECTOMY, TRIPLE CABG 2006. PCI/STENT IN 2000. STENTS BILATERAL LEGS, BILATERAL CATARACT REMOVAL. Past Anesthesia/Blood Transfusion Reactions: No Reported Reaction Date of Last Stent Placement:: 2000 Past Psychological History: No Psychological Hx Reported Additional Psychological History / Comment(s): Pt resides with his spouse. He uses a cane to ambulate. He drives. Smoking Status: Former smoker Past Alcohol Use History: None Reported Additional Past Alcohol Use History / Comment(s): SMOKED FROM AGE 12, 1/2 PPD, QUIT 2006. Past Drug Use History: None Reported - Past Family History Mother Family Medical History: Cancer, Osteoarthritis (OA) Medications and Allergies Home Medications Medication Instructions Recorded Confirmed Type Furosemide [Lasix] 40 mg PO BID #60 tab 01/13/18 11/22/18 Rx Metoprolol Tartrate [Lopressor] 50 mg PO TID #90 tab 01/13/18 11/22/18 Rx hydrALAZINE HCL [Apresoline] 50 mg PO TID #90 tab 01/13/18 11/22/18 Rx Aspirin 325 mg PO DAILY 11/22/18 11/22/18 History Nitroglycerin Sl Tabs [Nitrostat] 0.4 mg SUBLINGUAL Q5M PRN 11/22/18 11/22/18 History Potassium Chloride [Klor-Con 20] 20 meq PO DAILY 11/22/18 11/22/18 History Rivaroxaban [Xarelto] 2.5 mg PO BID 11/22/18 11/22/18 History Allergies Allergy/AdvReac Type Severity Reaction Status Date / Time No Known Allergies Allergy Verified 11/22/18 09:04 Physical Exam Vitals: Vital Signs Temp Pulse Resp BP Pulse Ox 11/22/18 15:30 84 30 H 154/67 93 L 11/22/18 15:00 68 22 142/60 95 11/22/18 14:30 68 20 148/66 97 11/22/18 14:00 64 19 144/72 97 11/22/18 13:45 59 L 153/69 98 11/22/18 13:30 68 147/62 98 11/22/18 13:15 65 170/67 95 11/22/18 13:00 55 L 16 155/69 98 11/22/18 12:45 58 L 156/70 99 11/22/18 12:30 53 L 166/75 99 11/22/18 12:15 54 L 157/68 97 11/22/18 12:00 19 F L 51 L 20 167/77 99 11/22/18 11:53 55 L 11/22/18 11:45 58 L 178/89 99 11/22/18 11:36 56 L 11/22/18 11:30 59 L 188/77 98 11/22/18 11:15 55 L 197/79 98 11/22/18 11:00 60 15 188/78 99 11/22/18 10:45 54 L 187/78 98 11/22/18 10:30 97.4 F L 58 L 201/76 99 11/22/18 10:19 58 L 20 11/22/18 09:44 58 L 16 181/83 100 11/22/18 09:07 61 18 165/72 100 11/22/18 08:46 60 18 169/74 98 11/22/18 08:32 82 18 144/74 98 11/22/18 08:11 98.1 F 96 24 180/94 100 Intake and Output 11/22/18 11/22/18 11/22/18 06:59 14:59 22:59 Intake Total 172.167 520 Output Total 350 Balance -177.833 520 Intake: IV 161.5 20 Nitroglycerin-D5w Pmx 50 61.5 mg In Dextrose/Water 1 250ml.bag @ 5 MCG/MIN 1.5 mls/hr IV .Q24H [facility] Rx#: [id number] Sodium Chloride 0.9% 1, 100 20 000 ml @ 20 mls/hr IV . Q24H [facility] Rx#:[id number] Intake, IV Titration 10.667 Amount Clevidipine Butyrate 25 0.467 mg In Empty Bag 1 bag @ 1 MG/HR 2 mls/hr IV .Q24H [facility] Rx#:[id number] Nitroglycerin-D5w Pmx 50 10.2 mg In Dextrose/Water 1 250ml.bag @ 5 MCG/MIN 1.5 mls/hr IV .Q24H [facility] Rx#: [id number] Oral 500 Output: Urine 350 Other: Voiding Method Urinal Weight 68.039 kg - Constitutional General appearance: no acute distress - Respiratory Respiratory: bilateral: diminished - Cardiovascular Rhythm: regular Heart sounds: normal: S1, S2 Abnormal Heart Sounds: systolic murmur Results 11/22/18 08:22 11/22/18 08:22 Cardiac Enzymes 11/22/18 11/22/18 Range/Units 08:22 08:22 AST 31 (17-59) U/L Troponin I 0.070 H* (0.000-0.034) ng/mL Coagulation 11/22/18 Range/Units 08:22 PT 9.9 (9.0-12.0) sec APTT 22.7 (22.0-30.0) sec CBC 11/22/18 Range/Units 08:22 WBC 13.6 H (3.8-10.6) k/uL RBC 3.98 L (4.30-5.90) m/uL Hgb 10.4 L (13.0-17.5) gm/dL Hct 33.3 L (39.0-53.0) % Plt Count 283 (150-450) k/uL Comprehensive Metabolic Panel 11/22/18 Range/Units 08:22 Sodium 141 (137-145) mmol/L Potassium 4.4 (3.5-5.1) mmol/L Chloride 106 (98-107) mmol/L Carbon Dioxide 23 (22-30) mmol/L BUN 36 H (9-20) mg/dL Creatinine 1.50 H (0.66-1.25) mg/dL Glucose 212 H (74-99) mg/dL Calcium 9.4 (8.4-10.2) mg/dL AST 31 (17-59) U/L ALT 22 (21-72) U/L Alkaline Phosphatase 69 (38-126) U/L Total Protein 6.9 (6.3-8.2) g/dL Albumin 4.0 (3.5-5.0) g/dL Current Medications Generic Name Dose Route Start Last Admin Trade Name Freq PRN Reason Stop Dose Admin Acetaminophen 650 mg 11/22/18 15:19 Tylenol Tab PO Q6HR PRN Mild Pain or Fever > 100.5 Hydrocodone Bitart/Acetaminophen 1 each 11/22/18 15:19 [place] 5-325 PO Q4HR PRN Moderate Pain Albuterol/Ipratropium 3 ml 11/22/18 12:00 11/22/18 11:36 Duoneb 0.5 Mg-3 Mg/3 Ml Soln INHALATION 3 ml RT-QID [facility] Administration Aspirin 325 mg 11/23/18 09:00 Aspirin PO DAILY [facility] Furosemide 40 mg 11/22/18 21:00 Lasix IV Q12HR [facility] Hydralazine HCl 50 mg 11/22/18 11:30 11/22/18 13:01 Apresoline PO 50 mg TID [facility] Administration Nitroglycerin/Dextrose 50 mg/ 250 mls @ 1.5 mls/hr 11/22/18 08:17 11/22/18 11:13 IV Solution IV 11/23/18 08:16 60 mcg/min .Q24H [facility] 18 mls/hr Titration Protocol 5 MCG/MIN Sodium Chloride 1,000 mls @ 20 mls/hr 11/22/18 09:30 11/22/18 09:38 Saline 0.9% IV 20 mls/hr .Q24H [facility] Administration Clevidipine 25 mg/ IV Solution 50 mls @ 2 mls/hr 11/22/18 11:30 11/22/18 13:00 IV 8 mg/hr .Q24H [facility] 16 mls/hr Titration Protocol 1 MG/HR Insulin Aspart 0 unit 11/22/18 12:00 11/22/18 11:31 Novolog SQ 2 unit Q4HR [facility] Administration Protocol Melatonin 3 mg 11/22/18 15:19 Melatonin PO HS PRN Insomnia Metoprolol Tartrate 50 mg 11/22/18 16:00 Lopressor PO TID [facility] Naloxone HCl 0.2 mg 11/22/18 09:27 Narcan IV Q2M PRN Opioid Reversal Nitroglycerin 0.4 mg 11/22/18 11:21 Nitrostat SUBLINGUAL Q5M PRN Chest Pain Potassium Chloride 20 meq 11/23/18 09:00 K-Dur 20 PO DAILY [facility] Rivaroxaban 2.5 mg 11/22/18 21:00 Xarelto PO BID [facility] Intake and Output 11/22/18 11/22/18 11/22/18 06:59 14:59 22:59 Intake Total 172.167 520 Output Total 350 Balance -177.833 520 Intake: IV 161.5 20 Nitroglycerin-D5w Pmx 50 61.5 mg In Dextrose/Water 1 250ml.bag @ 5 MCG/MIN 1.5 mls/hr IV .Q24H [facility] Rx#: [id number] Sodium Chloride 0.9% 1, 100 20 000 ml @ 20 mls/hr IV . Q24H [facility] Rx#:[id number] Intake, IV Titration 10.667 Amount Clevidipine Butyrate 25 0.467 mg In Empty Bag 1 bag @ 1 MG/HR 2 mls/hr IV .Q24H [facility] Rx#:[id number] Nitroglycerin-D5w Pmx 50 10.2 mg In Dextrose/Water 1 250ml.bag @ 5 MCG/MIN 1.5 mls/hr IV .Q24H [facility] Rx#: [id number] Oral 500 Output: Urine 350 Other: Voiding Method Urinal Weight 68.039 kg Patient Weight 11/23/18 06:59 Weight 68.039 kg 11/22/18 08:22 11/22/18 08:22 Assessment and Plan Assessment: Assessment #1 acute non-ST patient myocardial infarction #2 cardiac arrest with V. fib. #3 paroxysmal atrial fibrillation #4 hypertension #5 dyslipidemia #6 peripheral arterial disease Plan #1 resume the metoprolol #2 start the patient on heparin after stopping the Xarelto #3 I did recommend proceeding with coronary angiogram #4 obtain an echocardiogram was Doppler #5 try to maintain normal level of potassium and magnesium #6 follow-up with the patient Thank you for allowing us participate in his care
[2018-11-22] MEDS: METOPROLOL TARTRATE 50 MG TAB PO SCH ×2 (16:14→22:03)
[2018-11-22] MEDS: HEPARIN SOD,PORK IN 0.45% NACL 25,000 UNIT in 0.45% NACL 1 250ML.BAG IV SCH (16:19)
[2018-11-22] MEDS: HYDROcodone/APAP 5-325MG 1 EACH TAB PO PRN ×2 (16:23→23:55)
[2018-11-22] MEDS ORDERED: METOPROLOL TARTRATE 5 MG/5 ML VIAL IVP ONE (16:31)
[2018-11-22] MEDS ORDERED: METOPROLOL TARTRATE 5 MG/5 ML VIAL IVP STA (16:37)
[2018-11-22] MEDS: CLOPIDOGREL 75 MG TAB PO SCH (16:40)
[2018-11-22 18:42] LABS: Glucose,Whole Blood 291 mg/dL (75-99)
[2018-11-22] MEDS: FUROSEMIDE 10 MG/ML 4 ML VIAL IV SCH (20:47)
[2018-11-22 20:52] LABS: Glucose,Whole Blood 253 mg/dL (75-99)
[2018-11-22] MEDS ORDERED: RIVAROXABAN 2.5 MG TABLET PO SCH (21:00)
[2018-11-22] MEDS: PANTOPRAZOLE 40 MG/10 ML VIAL IVP SCH (23:56)
[2018-11-23] MEDS: INSULIN ASPART (NovoLOG) 100 UNIT/ML VIAL SQ SCH ×6 (00:29→21:02)
[2018-11-23 00:31] LABS: Glucose,Whole Blood 182 mg/dL (75-99)
[2018-11-23] MEDS: NITROGLYCERIN-D5W PMX 50 MG in DEXTROSE/WATER 1 250ML.BAG IV ONE (03:22)
[2018-11-23] MEDS: HEPARIN SODIUM,PORCINE 5,000 UNIT/ML 1 ML VIAL IV PRN ×2 (03:23→09:44)
[2018-11-23 04:16] LABS: Glucose,Whole Blood 154 mg/dL (75-99)
[2018-11-23] MEDS: LIDOCAINE-PRILOCAINE 2.5-2.5% CREAM 5 GM TUBE TOPICAL PRN (05:42)
[2018-11-23] MEDS: CLEVIDIPINE BUTYRATE 25 MG in EMPTY BAG 1 BAG IV SCH ×3 (05:43→19:00)
[2018-11-23 06:01] LABS: Anisocytosis Slight; Basophils % (A) 0 %; Eosinophils # (A) 0.1 k/uL (0-0.7); Eosinophils % (A) 1 %; HCT 25.8 % (39.0-53.0); Hypochromasia Slight; Lymphocytes # (A) 0.8 k/uL (1.0-4.8); Lymphocytes % (A) 6 %; MCH 26.6 pg (25.0-35.0); MCV 83.1 fL (80.0-100.0); Mean Platelet Volume 7.3; Monocytes # (A) 0.8 k/uL (0-1.0); Monocytes % (A) 6 %; Neutrophils # (A) 12.4 k/uL (1.3-7.7); Neutrophils % (A) 87 %; Platelet Count 235 k/uL (150-450); RBC 3.11 m/uL (4.30-5.90); RDW 17.2 % (11.5-15.5); WBC 14.3 k/uL (3.8-10.6)
[2018-11-23 06:08] LABS: HGB 8.3 gm/dL (13.0-17.5)
[2018-11-23 06:35] LABS: Calcium 9.5 mg/dL (8.4-10.2); Magnesium 2.4 mg/dL (1.6-2.3)
--- NOTE | 2018-11-23 06:50 | P.PN ---
Subjective Progress Note Date: 11/23/18 Principal diagnosis: Acute coronary syndrome This is a pleasant 73-year-old gentleman who sees Dr. Arcos as an outpatient with a past medical history significant for coronary artery disease and prior coronary revascularization in the term of stenting as well as CABG, severe per ipheral arterial disease, prior peripheral revascularization, paroxysmal atrial fibrillation, hypertension, dyslipidemia, was admitted to the intensive care unit after he sustained a witnessed cardiac arrest in the emergency room here. The patient does have CAD and in 2006 he received 3 bypasses, he received VILLALBA to LAD, SVG to left circumflex, and SVG to right coronary artery. Beside that, he does have severe peripheral arterial disease and in 2018, he underwent bilateral iliac stenting. The patient somewhat is a poor historian and the history was taken from him as well as from his in the room. For the last 3 days, he has been experiencing chest discomfort, in the center of the chest, without any radiation to the arm or neck or shoulders, and according to his , discomfort was worse with exertion. The discomfort also was associated with sweating sometimes. Currently her today at home, the patient did have an episode of loss of consciousness, the loss of consciousness episode happened with his in the room who called his son to come but the tightness on the right the patient regained his consciousness again. Because of that he was brought to the emergency room. In the emergency room today, the patient did have an episode of V. fib/torsade where he received a shock and was brought to normal sinus mechanism. Also he was given IV Lasix because it was felt that the patient was in fluid overload. Subsequently he was admitted to intensive care unit. Currently he is chest pain-free. He is hemodynamically stable beside being hypertensive. He is tachycardic but he did not receive any dose of metoprolol today. He was receiving oral anticoagulation for the A. fib with Xarelto. The chest x-ray did not show any acute abnormalities. The BNP came in to be about 3000. The EKG showed sinus mechanism with ST changes in the inferolateral leads. I did compare the EKG this time to prior EKG in 2018 and definitely there is T-wave inversion in the lateral leads. The troponin, first set came in to be abnormal. The patient is in process of receiving 2 more sets of cardiac enzymes. Also an echocardiogram was ordered. The oral anticoagulation with Xarelto was stopped at this point. I did recommend proceeding with coronary angiogram giving the chest discomfort, cardiac arrest, ischemic ST and T wave abnormalities on the EKG, and the underlying coronary artery disease and prior coronary revascularization. On follow-up with the patient today, 11/23/2018, he has been asymptomatic in terms of chest discomfort for the last 12 hours. He is on nitro drip. Beside that he is on BiPAP since last night because he went into respiratory distress. Currently he is on Lasix IV. The creatinine is worse, the GFR 34, hemoglobin is worse as well, and the hemoglobin is 8.3. Potassium is 4.0. Beside that he is on dual antiplatelet therapy. He is on heparin drip as well. The plan is to pursue with coronary angiogram in the next 24 hours, if the hemoglobin as well as creatinine continues to be stable. Beside that we'll follow-up on the echocardiogram. The troponin trend was reviewed and seems to be consistent with acute coronary syndrome. Objective - Vital Signs Vital signs: Vital Signs Temp 98.0 F 11/23/18 04:00 Pulse 65 11/23/18 06:00 Resp 19 11/23/18 06:00 BP 144/59 11/23/18 06:00 Pulse Ox 95 11/23/18 06:00 Intake & Output 11/22/18 11/22/18 11/23/18 06:59 18:59 06:59 Intake Total 850.700 575.146 Output Total 575 700 Balance 275.700 -124.854 Weight 68.039 kg 69.9 kg Intake: IV 241.5 240 Nitroglycerin-D5w Pmx 50 61.5 mg In Dextrose/Water 1 250ml.bag @ 5 MCG/MIN 1.5 mls/hr IV .Q24H [facility] Rx#: [id number] Sodium Chloride 0.9% 1, 180 240 000 ml @ 20 mls/hr IV . Q24H [facility] Rx#:[id number] Intake, IV Titration 109.200 335.146 Amount Clevidipine Butyrate 25 62.400 50.0 mg In Empty Bag 1 bag @ 1 MG/HR 2 mls/hr IV .Q24H [facility] Rx#:[id number] Heparin Sod,Pork in 0.45% 88.046 NaCl 25,000 unit In 0.45 % NaCl 1 250ml.bag @ 12 UNITS/KG/HR 8.165 mls/hr IV .Q24H [facility] Rx#: [id number] Nitroglycerin-D5w Pmx 50 46.8 197.1 mg In Dextrose/Water 1 250ml.bag @ 5 MCG/MIN 1.5 mls/hr IV .Q24H [facility] Rx#: [id number] Oral 500 Output: Urine 575 700 Other: Voiding Method Urinal Urinal # Voids 1 # Bowel Movements 1 - Constitutional General appearance: Present: no acute distress - Respiratory Respiratory: bilateral: diminished - Cardiovascular Rhythm: regular Heart sounds: normal: S1, S2 - Labs CBC & Chem 7: 11/23/18 05:42 11/23/18 05:42 Labs: Abnormal Lab Results - Last 24 Hours (Table) 11/22/18 11/22/18 11/22/18 Range/Units 08:22 08:22 08:22 WBC 13.6 H (3.8-10.6) k/uL RBC 3.98 L (4.30-5.90) m/uL Hgb 10.4 L (13.0-17.5) gm/dL Hct 33.3 L (39.0-53.0) % RDW 16.6 H (11.5-15.5) % Neutrophils # 10.3 H (1.3-7.7) k/uL Lymphocytes # (1.0-4.8) k/uL APTT (22.0-30.0) sec Sodium (137-145) mmol/L Carbon Dioxide (22-30) mmol/L BUN 36 H (9-20) mg/dL Creatinine 1.50 H (0.66-1.25) mg/dL Glucose 212 H (74-99) mg/dL POC Glucose (mg/dL) (75-99) mg/dL Magnesium 2.4 H (1.6-2.3) mg/dL Troponin I 0.070 H* (0.000-0.034) ng/mL 11/22/18 11/22/18 11/22/18 Range/Units 10:23 18:30 19:02 WBC (3.8-10.6) k/uL RBC (4.30-5.90) m/uL Hgb (13.0-17.5) gm/dL Hct (39.0-53.0) % RDW (11.5-15.5) % Neutrophils # (1.3-7.7) k/uL Lymphocytes # (1.0-4.8) k/uL APTT (22.0-30.0) sec Sodium (137-145) mmol/L Carbon Dioxide (22-30) mmol/L BUN (9-20) mg/dL Creatinine (0.66-1.25) mg/dL Glucose (74-99) mg/dL POC Glucose (mg/dL) 178 H 291 H (75-99) mg/dL Magnesium (1.6-2.3) mg/dL Troponin I 0.483 H* (0.000-0.034) ng/mL 11/22/18 11/23/18 11/23/18 Range/Units 20:40 00:14 00:14 WBC (3.8-10.6) k/uL RBC (4.30-5.90) m/uL Hgb (13.0-17.5) gm/dL Hct (39.0-53.0) % RDW (11.5-15.5) % Neutrophils # (1.3-7.7) k/uL Lymphocytes # (1.0-4.8) k/uL APTT 38.3 H (22.0-30.0) sec Sodium (137-145) mmol/L Carbon Dioxide (22-30) mmol/L BUN (9-20) mg/dL Creatinine (0.66-1.25) mg/dL Glucose (74-99) mg/dL POC Glucose (mg/dL) 253 H (75-99) mg/dL Magnesium (1.6-2.3) mg/dL Troponin I 0.666 H* (0.000-0.034) ng/mL 11/23/18 11/23/18 11/23/18 Range/Units 00:20 04:03 05:42 WBC 14.3 H (3.8-10.6) k/uL RBC 3.11 L (4.30-5.90) m/uL Hgb 8.3 L D (13.0-17.5) gm/dL Hct 25.8 L (39.0-53.0) % RDW 17.2 H (11.5-15.5) % Neutrophils # 12.4 H (1.3-7.7) k/uL Lymphocytes # 0.8 L (1.0-4.8) k/uL APTT (22.0-30.0) sec Sodium (137-145) mmol/L Carbon Dioxide (22-30) mmol/L BUN (9-20) mg/dL Creatinine (0.66-1.25) mg/dL Glucose (74-99) mg/dL POC Glucose (mg/dL) 182 H 154 H (75-99) mg/dL Magnesium (1.6-2.3) mg/dL Troponin I (0.000-0.034) ng/mL 11/23/18 Range/Units 05:42 WBC (3.8-10.6) k/uL RBC (4.30-5.90) m/uL Hgb (13.0-17.5) gm/dL Hct (39.0-53.0) % RDW (11.5-15.5) % Neutrophils # (1.3-7.7) k/uL Lymphocytes # (1.0-4.8) k/uL APTT (22.0-30.0) sec Sodium 135 L (137-145) mmol/L Carbon Dioxide 20 L (22-30) mmol/L BUN 51 H (9-20) mg/dL Creatinine 1.90 H (0.66-1.25) mg/dL Glucose 153 H (74-99) mg/dL POC Glucose (mg/dL) (75-99) mg/dL Magnesium 2.4 H (1.6-2.3) mg/dL Troponin I (0.000-0.034) ng/mL Assessment and Plan Assessment: Assessment #1 acute non-ST patient myocardial infarction #2 cardiac arrest with V. fib. #3 paroxysmal atrial fibrillation #4 hypertension #5 dyslipidemia #6 peripheral arterial disease Plan #1 continue the current medical regimen #2 try to wean the patient from nitro drip #3 continue dual antiplatelet therapy #4 try to keep the potassium above 4 #5 monitor the kidney function as well as electrolytes as well as hemoglobin #6 proceed with coronary angiogram, if the creatinine and hemoglobin are stable. Thank you for allowing us participate in his care
[2018-11-23] MEDS: IPRATROPIUM-ALBUTEROL 3 ML NEB INHALATION SCH ×4 (07:33→19:37)
[2018-11-23 08:07] LABS: Glucose,Whole Blood 160 mg/dL (75-99)
[2018-11-23] MEDS: ASPIRIN 325 MG TAB PO SCH (08:49)
[2018-11-23] MEDS: POTASSIUM CHLORIDE ER 20 MEQ TAB.ER PO SCH (08:51)
[2018-11-23] MEDS: METOPROLOL TARTRATE 50 MG TAB PO SCH ×3 (08:51→21:22)
[2018-11-23] MEDS: hydrALAZINE HCL 50 MG TAB PO SCH ×3 (08:51→21:22)
[2018-11-23] MEDS: FUROSEMIDE 10 MG/ML 4 ML VIAL IV SCH (08:51)
[2018-11-23] MEDS: PANTOPRAZOLE 40 MG/10 ML VIAL IVP SCH (08:51)
[2018-11-23] MEDS: CLOPIDOGREL 75 MG TAB PO SCH (08:55)
--- NOTE | 2018-11-23 10:51 | P.PN ---
Subjective Progress Note Date: 11/23/18 This is a 73-year-old male patient with extensive cardiac history including coronary artery disease with previous bypass surgery, chronic A. fib, diastolic heart failure, hypertension and hyperlipidemia and COPD with chronic hypoxic respiratory failure maintained on oxygen at 4 L per minute nasal cannula with an FEV1 of 63% of predicted, diffusion capacity of 61% predicted and total lung capacity of 99% of predicted. The patient's developed an acute shortness of breath. He felt some chest discomfort subsequently was unable to breathe. He asked to be moved to the hospital. The patient was brought via EMS. The patient admitted that he was progressively getting more short of breath and he had difficulties and laying down flat. He was quite tachypneic at a time of admission and the blood pressure was also elevated. Chest x-ray showed cardiomegaly and pulmonary edema. The initial blood pressure was 180/94 in the patient's respiratory rate was 24. Based on all this, the patient was given diuretics. The patient was started on a nitroglycerin drip. The patient was placed on a BiPAP. 30 minutes while being in the emergency, the patient became acutely unresponsive. patient monitor showed polymorphic ventricular tachycardia consistent with torsade de pointes. Based on this, the patient wound received an immediate cardioversion with 200 J biphasic and the patient was also given 2 g of magnesium 1 g of calcium. The cardioversion was successful. EKG showed no significant abnormalities or prolongation of the QT. The patient is currently in normal sinus rhythm with PACs and the patient has a 70 her conduction delay, probably a left bundle branch block pattern. The first set of cardiac enzymes showed a troponin of 0.07. BNP was 4530. Creatinine is at 1.5 with a BUN of 36. The patient got transferred to the intensive care unit and while on the BiPAP. The patient is on a BiPAP pressure of 14/7 cm of water with an FiO2 of 40%. Is receiving Lasix 40 mg IV push every 12 hours. He is on long-term articulation with Xarelto 2.5 mg twice a day. He was started on clevidipine drip for tighter blood pressure control. He was also restarted back on hydralazine and metoprolol. Nitroglycerin drip is also running at 5 g per minute. No chest pain. No back pain. No arm pain. No neck pain. No further episodes of arrhythmias at this point in time. Echocardiogram is to follow. Cardiology consultation is to follow. On 11/23/2018 I'm seeing this patient for a follow-up. This morning the patient is feeling better and he seems to much more comfortable compared to yesterday. The patient was taken off the BiPAP which was set at a pressure of 14/7 cm of water and currently is on 40 of oxygen by nasal cannula which is very close to his baseline. He is free of any chest pains no nitroglycerin drip which is running at 60 g per minute. His BP is under better control while being on Cleviprex at the rate of 3 mg an hour. The patient diuresed well over the past 12 hours while being on IV Lasix. Creatinine is up to 1.9 and the patient will be taken off the diuretics. No cough or sputum production. No chest pain this morning. His cardiac rhythm is sinus and the patient remains on IV heparin. Cardiology is on the case and the plan is to proceed with a cardiac catheterization within the next 24-48 hours. Otherwise, no other significant events on this patient overnight. A repeat echo was ordered and the results are still pending for now. Objective - Vital Signs Vital signs: Vital Signs Temp 97.9 F 11/23/18 08:00 Pulse 73 11/23/18 10:30 Resp 25 H 11/23/18 10:30 BP 136/60 11/23/18 10:30 Pulse Ox 79 L 11/23/18 10:30 Intake & Output 11/22/18 11/23/18 11/23/18 18:59 06:59 18:59 Intake Total 850.700 581.413 397.67 Output Total 575 700 0 Balance 275.700 -118.587 397.67 Weight 68.039 kg 69.9 kg Intake: IV 241.5 240 80 Nitroglycerin-D5w Pmx 50 61.5 mg In Dextrose/Water 1 250ml.bag @ 5 MCG/MIN 1.5 mls/hr IV .Q24H [facility] Rx#: [id number] Sodium Chloride 0.9% 1, 180 240 80 000 ml @ 20 mls/hr IV . Q24H [facility] Rx#:[id number] Intake, IV Titration 109.200 341.413 81.67 Amount Clevidipine Butyrate 25 62.400 56.267 13.8 mg In Empty Bag 1 bag @ 1 MG/HR 2 mls/hr IV .Q24H [facility] Rx#:[id number] Heparin Sod,Pork in 0.45% 88.046 67.87 NaCl 25,000 unit In 0.45 % NaCl 1 250ml.bag @ 12 UNITS/KG/HR 8.165 mls/hr IV .Q24H [facility] Rx#: [id number] Nitroglycerin-D5w Pmx 50 46.8 197.1 mg In Dextrose/Water 1 250ml.bag @ 5 MCG/MIN 1.5 mls/hr IV .Q24H [facility] Rx#: [id number] Oral 500 236 Output: Urine 575 700 0 Other: Voiding Method Urinal Urinal # Voids 1 1 # Bowel Movements 1 1 - Exam GENERAL EXAM: 72-year-old white male, cachectic, currently on 4 L of oxygen by nasal cannula and he is breathing without any major difficulties. HEAD: Normocephalic/atraumatic. EYES: Normal reaction of pupils, equal size. Conjunctiva pink, sclera white. NOSE: Clear with pink turbinates. THROAT: No erythema or exudates. NECK: No masses, no JVD, no thyroid enlargement, no adenopathy. CHEST: No chest wall deformity. Symmetrical expansion. LUNGS: Equal air entry with minimal crackles at the lung bases and the patient is prolongation of expiratory phase of breathing and scattered expiratory wheezes heard throughout the lung randolph. Air entry overall is diminished. CVS: Irregular rate and rhythm, consistent with atrial fibrillation., normal S1 and S2, no gallops, no murmurs, no rubs ABDOMEN: Soft, nontender. No hepatosplenomegaly, normal bowel sounds, no guarding or rigidity. EXTREMITIES: No clubbing, no cyanosis, 1+ pulses and upper and lower extremities. No edema MUSCULOSKELETAL: Muscle strength and tone normal. SPINE: No scoliosis or deformity SKIN: No rashes CENTRAL NERVOUS SYSTEM: Sedated. No focal deficits, tone is normal in all 4 extremities. PSYCHIATRIC: Calm, alert and oriented. - Labs CBC & Chem 7: 11/23/18 05:42 11/23/18 05:42 Labs: Abnormal Lab Results - Last 24 Hours (Table) 11/22/18 11/22/18 11/22/18 Range/Units 18:30 19:02 20:40 WBC (3.8-10.6) k/uL RBC (4.30-5.90) m/uL Hgb (13.0-17.5) gm/dL Hct (39.0-53.0) % RDW (11.5-15.5) % Neutrophils # (1.3-7.7) k/uL Lymphocytes # (1.0-4.8) k/uL APTT (22.0-30.0) sec Sodium (137-145) mmol/L Carbon Dioxide (22-30) mmol/L BUN (9-20) mg/dL Creatinine (0.66-1.25) mg/dL Glucose (74-99) mg/dL POC Glucose (mg/dL) 291 H 253 H (75-99) mg/dL Magnesium (1.6-2.3) mg/dL Troponin I 0.483 H* (0.000-0.034) ng/mL 11/23/18 11/23/18 11/23/18 Range/Units 00:14 00:14 00:20 WBC (3.8-10.6) k/uL RBC (4.30-5.90) m/uL Hgb (13.0-17.5) gm/dL Hct (39.0-53.0) % RDW (11.5-15.5) % Neutrophils # (1.3-7.7) k/uL Lymphocytes # (1.0-4.8) k/uL APTT 38.3 H (22.0-30.0) sec Sodium (137-145) mmol/L Carbon Dioxide (22-30) mmol/L BUN (9-20) mg/dL Creatinine (0.66-1.25) mg/dL Glucose (74-99) mg/dL POC Glucose (mg/dL) 182 H (75-99) mg/dL Magnesium (1.6-2.3) mg/dL Troponin I 0.666 H* (0.000-0.034) ng/mL 11/23/18 11/23/18 11/23/18 Range/Units 04:03 05:42 05:42 WBC 14.3 H (3.8-10.6) k/uL RBC 3.11 L (4.30-5.90) m/uL Hgb 8.3 L D (13.0-17.5) gm/dL Hct 25.8 L (39.0-53.0) % RDW 17.2 H (11.5-15.5) % Neutrophils # 12.4 H (1.3-7.7) k/uL Lymphocytes # 0.8 L (1.0-4.8) k/uL APTT (22.0-30.0) sec Sodium 135 L (137-145) mmol/L Carbon Dioxide 20 L (22-30) mmol/L BUN 51 H (9-20) mg/dL Creatinine 1.90 H (0.66-1.25) mg/dL Glucose 153 H (74-99) mg/dL POC Glucose (mg/dL) 154 H (75-99) mg/dL Magnesium 2.4 H (1.6-2.3) mg/dL Troponin I (0.000-0.034) ng/mL 11/23/18 11/23/18 Range/Units 07:55 09:00 WBC (3.8-10.6) k/uL RBC (4.30-5.90) m/uL Hgb (13.0-17.5) gm/dL Hct (39.0-53.0) % RDW (11.5-15.5) % Neutrophils # (1.3-7.7) k/uL Lymphocytes # (1.0-4.8) k/uL APTT 46.8 H (22.0-30.0) sec Sodium (137-145) mmol/L Carbon Dioxide (22-30) mmol/L BUN (9-20) mg/dL Creatinine (0.66-1.25) mg/dL Glucose (74-99) mg/dL POC Glucose (mg/dL) 160 H (75-99) mg/dL Magnesium (1.6-2.3) mg/dL Troponin I (0.000-0.034) ng/mL Assessment and Plan Plan: 1 acute hypoxic respiratory failure secondary to acute pulmonary edema, curre ntly the patient is off the BiPAP and the patient is back on 4 L of oxygen by nasal cannula. He improved with use of diuresis and control of his atrial fibrillation. 2 acute hypertensive emergency, currently on IV Cleviprex for blood pressure control mode and the medication still running at 3 mg an hour and this will be gradually weaned off. 3 acute torsade de pointes, polymorphic V. tach, post successful cardioversion with 200 J 4 chronic atrial fibrillation with long-term articulation with Xarelto him a current rhythm is sinus and the patient was taken off the Xarelto and placed on IV heparin. 5 coronary artery disease with previous bypass surgery and previous coronary intervention and stenting. The patient comes in for with acute coronary syndrome and unstable angina. The patient has some nonspecific EKG changes and there is a limited troponin leak. A setting of an acute polymorphic V. tach, the patient would likely need further investigation including a cardiac catheterization later stage. 7 peripheral vascular disease with previous history of bilateral stenting of the lower extremities 8 chronic stage III kidney disease him a and there is a component of acute kidney injury with a creatinine is up to 1.9, likely secondary to diuresis 9 hyperlipidemia 10 chronic anemia, chronic anemia 11 acid reflux 12 osteoarthritis 13 previous history of right-sided pleural effusion postthoracentesis and the fluid cytology was negative for malignancy 14 hiatal hernia 15 previous history of GI bleed and the patient had a colonoscopy and EGD back in July 2017 that showed some mild gastritis and colonic polyps. Currently the patient and to coagulation with 16 hemorrhoids 17 chronic back pain 18 migraine 19 previous history of osteoarthritis 20 hypertension, poorly controlled 21 COPD with an FEV1 of 63% of predicted at baseline Plan Continue Cleviprex for blood pressure control. Wean off the medication to maintain a systolic blood pressure less than 160. The patient was started on metoprolol and hydralazine. Continue nitroglycerin drip for now. Continued IV heparin. Discontinue the Lasix. Monitor renal function. Continue aspirin. Continue Plavix. Discontinue the BiPAP and keep the patient 40s about 2 by nasal cannula. Cardiac catheterization is to follow once the renal function stabilizes. We'll keep in ICU
--- NOTE | 2018-11-23 11:37 | ECHOF ---
Referral Reason:Torsades MEASUREMENTS -------- HEIGHT: 165.1 cm WEIGHT: 68.0 kg BP: 155/99 IVSd: 1.3 cm (0.6 - 1.1) LVIDd: 4.8 cm (3.9 - 5.3) LVPWd: 1.2 cm (0.6 - 1.1) IVSs: 1.7 cm LVIDs: 3.8 cm LVPWs: 1.4 cm LA Diam: 5.2 cm (2.7 - 3.8) LAESV Index (A-L): 48.73 ml/m EPSS: 0.7 cm MV E Ronaldo: 0.96 m/s MV DecT: 113 ms MV A Ronaldo: 0.02 m/s MV E/A Ratio: 44.92 RAP: 5.00 mmHg RVSP: 46.92 mmHg MV EF SLOPE: 45.28 mm/s (70 - 150) MV EXCURSION: 21.87 mm (> 18.000) FINDINGS -------- Undetermined rhythm. This was a technically good study. The left ventricular size is normal. There is mild concentric left ventricular hypertrophy. Overa ll left ventricular systolic function is low-normal with, an EF between 50 - 55 %. Left ventricular fillimg pressure cannot be estimated due to Atrial fibrillation. Inferior Hypokinesis The right ventricle is normal in size. The left atrium is markedly dilated. The right atrial size is normal. There is mild aortic valve sclerosis. There is no evidence of aortic regurgitation. Mild mitral annular calcification present. Mild mitral regurgitation is present. Mild tricuspid regurgitation present. There is moderate pulmonary hypertension. The right ventric ular systolic pressure, as measured by Doppler, is 46.92mmHg. There is no pulmonic regurgitation present. The aortic root size is normal. The inferior vena cava is moderately dilated. There is no pericardial effusion. CONCLUSIONS -------- 1. Undetermined rhythm. 2. This was a technically good study. 3. The left ventricular size is normal. 4. There is mild concentric left ventricular hypertrophy. 5. Overall left ventricular systolic function is low-normal with, an EF between 50 - 55 %. 6. Left ventricular fillimg pressure cannot be estimated due to Atrial fibrillation. 7. Inferior Hypokinesis 8. The right ventricle is normal in size. 9. The left atrium is markedly dilated. 10. The right atrial size is normal. 11. There is mild aortic valve sclerosis. 12. Mild mitral annular calcification present. 13. Mild mitral regurgitation is present. 14. Mild tricuspid regurgitation present. 15. There is moderate pulmonary hypertension. 16. The right ventricular systolic pressure, as measured by Doppler, is 46.92mmHg. 17. There is no pulmonic regurgitation present. 18. The aortic root size is normal. 19. The inferior vena cava is moderately dilated. 20. There is no pericardial effusion. HEAD START TEACHER: Citlaly Ramirez RDCS
[2018-11-23 12:14] LABS: Glucose,Whole Blood 129 mg/dL (75-99)
--- NOTE | 2018-11-23 13:10 | CDI ---
Documentation Clarification Form Date: 11/23/2018 12:59:31 PM From: Cecilia Aparicio RN, CCDS Admit Date: 11/22/2018 9:27:00 AM Patient Name: Antonio Duncan Visit Number: [id number] ATTENTION: The Clinical Documentation Specialists (CDI) and [facility] Coding Staff appreciate your assistance in clarifying documentation. Please respond to the clarification below the line at the bottom and electronically sign. The CDI & [facility] Coding staff will review the response and follow-up if needed. Please note: Queries are made part of the Legal Health Record. If you have any questions, please contact the author of this message via ITS. Dr. Ray Denson A diagnosis of chronic anemia lacks specificity to accurately reflect your patients severity of condition and clarification is needed. History/Risk Factors: Acute on Chronic hypoxic respiratory failure, Torsades, SB, elevated troponin Clinical indicators: Hemoglobin: 10.4/8.3 Hematocrit: 33.3/25.8 Treatment: Xarelto 2.5 mg po BID Labs AM Daily In order to capture the severity of condition, please clarify the type of anemia and etiology if known: Acute blood loss anemia Acute on chronic blood loss anemia Chronic blood loss anemia Iron deficiency anemia Drug induced anemia Nutritional anemia Anemia of chronic disease Unable to determine Other, please specify (Last Revision: January 2017) _Acute on chronic blood loss anemia MTDD
[2018-11-23 15:40] LABS: Anisocytosis Slight; HCT 28.5 % (39.0-53.0); HGB 8.6 gm/dL (13.0-17.5); Hypochromasia Marked; MCH 26.1 pg (25.0-35.0); MCHC 30.2 g/dL (31.0-37.0); MCV 86.4 fL (80.0-100.0); Mean Platelet Volume 7.6; Platelet Count 223 k/uL (150-450); RDW 16.8 % (11.5-15.5); WBC 18.5 k/uL (3.8-10.6)
[2018-11-23] MEDS: HEPARIN SOD,PORK IN 0.45% NACL 25,000 UNIT in 0.45% NACL 1 250ML.BAG IV SCH (15:56)
[2018-11-23] MEDS: HYDROcodone/APAP 5-325MG 1 EACH TAB PO PRN (16:05)
[2018-11-23] MEDS: NITROGLYCERIN-D5W PMX 50 MG in DEXTROSE/WATER 1 250ML.BAG IV SCH (16:07)
[2018-11-23] MEDS: SODIUM CHLORIDE 0.9% 1,000 ML IV SCH (16:14)
[2018-11-23 17:10] LABS: Glucose,Whole Blood 193 mg/dL (75-99)
--- NOTE | 2018-11-23 17:34 | P.PN ---
Subjective Progress Note Date: 11/23/18 (delayed charting seen at 1040) Principal diagnosis: dyspnea Patient is a 73-year-old male past medical history of atrial fibrillation, congestive heart failure with preserved ejection fraction of 55%, coronary artery disease with history of myocardial infarction and three-vessel bypass in 2006, hypertension, dyslipidemia, COPD, and chronic hypoxic respiratory failure on 4 L nasal cannula who presented to the ER via EMS for chest pain and shortness of breath. In the ER he underwent an extensive evaluation. Initially on arrival his pulse was 96 and blood pressure was 180/94. He was in acute respiratory distress and was subsequently placed on BiPAP therapy. Apparently bedside ultrasound was done in the ER consistent with pulmonary edema. He was started on a nitro drip. Approximately 30 minutes later he went into polymorphic tachycardia consistent with torsades and loss of consciousness. He required cardioversion 1 and he was given magnesium. Initial laboratory analysis showed an elevated white blood cell count at 13, hemoglobin of 10.4, creatinine of 1.5 which appears to be baseline, and glucose of 212. His potassium was normal at 4.4, magnesium slightly high at 2.4, and calcium was normal at 9.4. Initial BNP was elevated at 4530. Initial troponin was elevated at 0.070. Chest x-ray showed new basilar opacities consistent with multi focal pneumonia or atelectasis. He was given a dose of aspirin and Lasix. Arrangements were made for admission to the ICU. Cardiology and critical care were consulted. He was started on clevidipine gtt. he was attempted to be weaned off nitro and had recurrent chest pain and therefore nitro was restarted. He was also started on a heparin drip. Plan is for cardiac cath on 11/14. He has slight rise in creatinine on 11/23 likely secondary to forced diuresis. He was able to be weaned off BiPAP and was on his home oxygen. Patient seen and examined at bedside. His breathing is much better than yesterday, currently chest pain-free. Denies any nausea, vomiting, or diarrhea. Concerned about having a cardiac catheterization tomorrow and with stable fine. No family at bedside. Objective - Vital Signs Vital signs: Vital Signs Temp 97.6 F 11/23/18 16:00 Pulse 70 11/23/18 16:02 Resp 18 11/23/18 16:00 BP 138/84 11/23/18 16:00 Pulse Ox 92 L 11/23/18 16:00 Intake & Output 11/22/18 11/23/18 11/23/18 18:59 06:59 18:59 Intake Total 850.700 581.413 834.501 Output Total 575 700 410 Balance 275.700 -118.587 424.501 Weight 68.039 kg 69.9 kg 69.9 kg Intake: IV 241.5 240 180 Nitroglycerin-D5w Pmx 50 61.5 mg In Dextrose/Water 1 250ml.bag @ 5 MCG/MIN 1.5 mls/hr IV .Q24H [facility] Rx#: [id number] Sodium Chloride 0.9% 1, 180 240 180 000 ml @ 20 mls/hr IV . Q24H [facility] Rx#:[id number] Intake, IV Titration 109.200 341.413 196.501 Amount Clevidipine Butyrate 25 62.400 56.267 57.2 mg In Empty Bag 1 bag @ 1 MG/HR 2 mls/hr IV .Q24H [facility] Rx#:[id number] Heparin Sod,Pork in 0.45% 88.046 139.301 NaCl 25,000 unit In 0.45 % NaCl 1 250ml.bag @ 12 UNITS/KG/HR 8.165 mls/hr IV .Q24H [facility] Rx#: [id number] Nitroglycerin-D5w Pmx 50 46.8 197.1 mg In Dextrose/Water 1 250ml.bag @ 5 MCG/MIN 1.5 mls/hr IV .Q24H [facility] Rx#: [id number] Oral 500 458 Output: Urine 575 700 410 Other: Voiding Method Urinal Urinal # Voids 1 1 # Bowel Movements 1 1 - Exam General: non toxic, no distress, appears at stated age Derm: warm, dry Head: atraumatic, normocephalic, symmetric Eyes: EOMI, no lid lag, anicteric sclera Mouth: no lip lesion, mucus membranes moist Cardiovascular: S1S2 reg, no murmur, positive posterior tibial pulse bilateral, Lungs: Decreased breath sounds bilateral, no rhonchi, no rales , no accessory muscle use Abdominal: soft, nontender to palpation, no guarding, no appreciable organomegaly Ext: no gross muscle atrophy, no edema, no contractures Neuro: CN II-XI grossly intact, no focal neuro deficits Psych: Alert, oriented, flat affect - Labs CBC & Chem 7: 11/23/18 15:24 11/23/18 05:42 Labs: Abnormal Lab Results - Last 24 Hours (Table) 11/22/18 11/22/18 11/22/18 Range/Units 18:30 19:02 20:40 WBC (3.8-10.6) k/uL RBC (4.30-5.90) m/uL Hgb (13.0-17.5) gm/dL Hct (39.0-53.0) % MCHC (31.0-37.0) g/dL RDW (11.5-15.5) % Neutrophils # (1.3-7.7) k/uL Lymphocytes # (1.0-4.8) k/uL APTT (22.0-30.0) sec Sodium (137-145) mmol/L Carbon Dioxide (22-30) mmol/L BUN (9-20) mg/dL Creatinine (0.66-1.25) mg/dL Glucose (74-99) mg/dL POC Glucose (mg/dL) 291 H 253 H (75-99) mg/dL Magnesium (1.6-2.3) mg/dL Troponin I 0.483 H* (0.000-0.034) ng/mL 11/23/18 11/23/18 11/23/18 Range/Units 00:14 00:14 00:20 WBC (3.8-10.6) k/uL RBC (4.30-5.90) m/uL Hgb (13.0-17.5) gm/dL Hct (39.0-53.0) % MCHC (31.0-37.0) g/dL RDW (11.5-15.5) % Neutrophils # (1.3-7.7) k/uL Lymphocytes # (1.0-4.8) k/uL APTT 38.3 H (22.0-30.0) sec Sodium (137-145) mmol/L Carbon Dioxide (22-30) mmol/L BUN (9-20) mg/dL Creatinine (0.66-1.25) mg/dL Glucose (74-99) mg/dL POC Glucose (mg/dL) 182 H (75-99) mg/dL Magnesium (1.6-2.3) mg/dL Troponin I 0.666 H* (0.000-0.034) ng/mL 11/23/18 11/23/18 11/23/18 Range/Units 04:03 05:42 05:42 WBC 14.3 H (3.8-10.6) k/uL RBC 3.11 L (4.30-5.90) m/uL Hgb 8.3 L D (13.0-17.5) gm/dL Hct 25.8 L (39.0-53.0) % MCHC (31.0-37.0) g/dL RDW 17.2 H (11.5-15.5) % Neutrophils # 12.4 H (1.3-7.7) k/uL Lymphocytes # 0.8 L (1.0-4.8) k/uL APTT (22.0-30.0) sec Sodium 135 L (137-145) mmol/L Carbon Dioxide 20 L (22-30) mmol/L BUN 51 H (9-20) mg/dL Creatinine 1.90 H (0.66-1.25) mg/dL Glucose 153 H (74-99) mg/dL POC Glucose (mg/dL) 154 H (75-99) mg/dL Magnesium 2.4 H (1.6-2.3) mg/dL Troponin I (0.000-0.034) ng/mL 11/23/18 11/23/18 11/23/18 Range/Units 07:55 09:00 12:02 WBC (3.8-10.6) k/uL RBC (4.30-5.90) m/uL Hgb (13.0-17.5) gm/dL Hct (39.0-53.0) % MCHC (31.0-37.0) g/dL RDW (11.5-15.5) % Neutrophils # (1.3-7.7) k/uL Lymphocytes # (1.0-4.8) k/uL APTT 46.8 H (22.0-30.0) sec Sodium (137-145) mmol/L Carbon Dioxide (22-30) mmol/L BUN (9-20) mg/dL Creatinine (0.66-1.25) mg/dL Glucose (74-99) mg/dL POC Glucose (mg/dL) 160 H 129 H (75-99) mg/dL Magnesium (1.6-2.3) mg/dL Troponin I (0.000-0.034) ng/mL 11/23/18 11/23/18 11/23/18 Range/Units 15:24 15:24 16:59 WBC 18.5 H (3.8-10.6) k/uL RBC 3.30 L (4.30-5.90) m/uL Hgb 8.6 L (13.0-17.5) gm/dL Hct 28.5 L (39.0-53.0) % MCHC 30.2 L (31.0-37.0) g/dL RDW 16.8 H (11.5-15.5) % Neutrophils # (1.3-7.7) k/uL Lymphocytes # (1.0-4.8) k/uL APTT 76.5 H (22.0-30.0) sec Sodium (137-145) mmol/L Carbon Dioxide (22-30) mmol/L BUN (9-20) mg/dL Creatinine (0.66-1.25) mg/dL Glucose (74-99) mg/dL POC Glucose (mg/dL) 193 H (75-99) mg/dL Magnesium (1.6-2.3) mg/dL Troponin I (0.000-0.034) ng/mL Assessment and Plan Assessment: NSTEMI - ASA, heparin gtt, metoprolol, plavix, statin - plan is for cath in AM - nitro gtt as needed for pain, attempt to wean - echo with inferior wall hypokanesis Torsade de Pointes with history of atrial fibrillation - potassium and magnesium levels are normal - tele - monitor in ICU - cardio recs appreciated - on heparin gtt with xarelto on hold for cath AIDEN on Chronic kidney disease stage III - likely due to forced diuresis -Creatinine the near baseline at 1.5 - avoid additional nephrotoxic agents - follow BMP Chronic CHF EF 55% - lopressor -Not On WHIT inhibitor at baseline -Strict I's and O's -Daily weight Hypertensive urgency -Continue with nitro drip, hydralazine, Clevidipine, metoprolol - attempting to wean nitro gtt -Follow blood pressures COPD without exacerbation - prn duonebrs Acute on chronic hypoxic respiratory failure, improved Pulmonary edema, resolved Chronic: Arthritis Chronic low back pain History of gastric ulcers DVT prophylaxis: Adriannarelto Discussed with: patient, ICU nursing, Dr. Denson Anticipated discharge: 3-[address]: home A total of [35] minutes was spent on the care of this complex patient more than 50% of the time was spent in counseling and care coordination.
[2018-11-23] MEDS: ATORVASTATIN 40 MG TAB PO SCH (17:53)
[2018-11-23 20:53] LABS: Glucose,Whole Blood 135 mg/dL (75-99)
[2018-11-24 05:57] LABS: Anisocytosis Slight; Basophils # (A) 0.1 k/uL (0-0.2); Basophils % (A) 0 %; Eosinophils # (A) 0.1 k/uL (0-0.7); Eosinophils % (A) 0 %; HCT 25.1 % (39.0-53.0); HGB 8.1 gm/dL (13.0-17.5); Hypochromasia Moderate; Lymphocytes # (A) 1.3 k/uL (1.0-4.8); Lymphocytes % (A) 8 %; MCH 27.2 pg (25.0-35.0); MCHC 32.1 g/dL (31.0-37.0); MCV 84.8 fL (80.0-100.0); Mean Platelet Volume 7.4; Monocytes # (A) 0.8 k/uL (0-1.0); Monocytes % (A) 5 %; Neutrophils # (A) 13.7 k/uL (1.3-7.7); Neutrophils % (A) 85 %; Platelet Count 211 k/uL (150-450); RBC 2.96 m/uL (4.30-5.90); RDW 17.4 % (11.5-15.5); WBC 16.1 k/uL (3.8-10.6)
[2018-11-24 06:13] LABS: Potassium 3.9 mmol/L (3.5-5.1)
[2018-11-24 07:10] LABS: Glucose,Whole Blood 180 mg/dL (75-99)
[2018-11-24] MEDS: NITROGLYCERIN-D5W PMX 50 MG in DEXTROSE/WATER 1 250ML.BAG IV SCH (07:25)
--- NOTE | 2018-11-24 07:35 | P.PN ---
Subjective Progress Note Date: 11/24/18 Principal diagnosis: Acute coronary syndrome This is a pleasant 73-year-old gentleman who sees Dr. Arcos as an outpatient with a past medical history significant for coronary artery disease and prior coronary revascularization in the term of stenting as well as CABG, severe per ipheral arterial disease, prior peripheral revascularization, paroxysmal atrial fibrillation, hypertension, dyslipidemia, was admitted to the intensive care unit after he sustained a witnessed cardiac arrest in the emergency room here. The patient does have CAD and in 2006 he received 3 bypasses, he received VILLALBA to LAD, SVG to left circumflex, and SVG to right coronary artery. Beside that, he does have severe peripheral arterial disease and in 2018, he underwent bilateral iliac stenting. The patient somewhat is a poor historian and the history was taken from him as well as from his in the room. For the last 3 days, he has been experiencing chest discomfort, in the center of the chest, without any radiation to the arm or neck or shoulders, and according to his , discomfort was worse with exertion. The discomfort also was associated with sweating sometimes. Currently her today at home, the patient did have an episode of loss of consciousness, the loss of consciousness episode happened with his in the room who called his son to come but the tightness on the right the patient regained his consciousness again. Because of that he was brought to the emergency room. In the emergency room today, the patient did have an episode of V. fib/torsade where he received a shock and was brought to normal sinus mechanism. Also he was given IV Lasix because it was felt that the patient was in fluid overload. Subsequently he was admitted to intensive care unit. The BNP came in to be about 3000. The EKG showed sinus mechanism with ST changes in the inferolateral leads. I did compare the EKG this time to prior EKG in 2018 and definitely there is T-wave inversion in the lateral leads. The troponin came in to be abnormal. On follow-up with the patient today, 11/24/2018, he continues to be chest pain- free on Imdur IV. I am going to wean him from the Imdur IV and start him on Imdur by mouth. Beside that, he continues to be hypertensive, I would increase the dose of metoprolol as well as a dose of hydralazine. Unfortunately, the hemoglobin has been trending down and the creatinine has been trending up. His GFR is only about 30. I would recommend postponing the coronary angiogram until his creatinine improved. The echocardiogram revealed normal LV function with mild valvular abnormalities and moderate pulmonary hypertension. He has been maintaining normal sinus mechanism. Objective - Vital Signs Vital signs: Vital Signs Temp 97.8 F 11/24/18 04:00 Pulse 85 11/24/18 07:00 Resp 16 11/24/18 07:00 BP 144/58 11/24/18 07:00 Pulse Ox 95 11/24/18 07:00 Intake & Output 11/23/18 11/24/18 11/24/18 18:59 06:59 18:59 Intake Total 861.101 470.067 Output Total 410 925 Balance 451.101 -454.933 Weight 69.9 kg 70 kg Intake: IV 200 220 Sodium Chloride 0.9% 1, 200 220 000 ml @ 20 mls/hr IV . Q24H [facility] Rx#:[id number] Intake, IV Titration 203.101 250.067 Amount Clevidipine Butyrate 25 63.8 0.067 mg In Empty Bag 1 bag @ 1 MG/HR 2 mls/hr IV .Q24H [facility] Rx#:[id number] Heparin Sod,Pork in 0.45% 139.301 NaCl 25,000 unit In 0.45 % NaCl 1 250ml.bag @ 12 UNITS/KG/HR 8.165 mls/hr IV .Q24H [facility] Rx#: [id number] Nitroglycerin-D5w Pmx 50 250 mg In Dextrose/Water 1 250ml.bag @ Titrate IV . Q0M [facility] Rx#:[id number] Oral 458 Output: Urine 410 925 Other: Voiding Method Urinal Urinal # Voids 1 # Bowel Movements 1 - Constitutional General appearance: Present: no acute distress - Respiratory Respiratory: bilateral: diminished - Cardiovascular Rhythm: regular Heart sounds: normal: S1, S2 - Labs CBC & Chem 7: 11/24/18 05:26 11/24/18 05:26 Labs: Abnormal Lab Results - Last 24 Hours (Table) 11/23/18 11/23/18 11/23/18 Range/Units 07:55 09:00 12:02 WBC (3.8-10.6) k/uL RBC (4.30-5.90) m/uL Hgb (13.0-17.5) gm/dL Hct (39.0-53.0) % MCHC (31.0-37.0) g/dL RDW (11.5-15.5) % Neutrophils # (1.3-7.7) k/uL APTT 46.8 H (22.0-30.0) sec Sodium (137-145) mmol/L Carbon Dioxide (22-30) mmol/L BUN (9-20) mg/dL Creatinine (0.66-1.25) mg/dL Glucose (74-99) mg/dL POC Glucose (mg/dL) 160 H 129 H (75-99) mg/dL Triglycerides (<150) mg/dL 11/23/18 11/23/18 11/23/18 Range/Units 15:24 15:24 16:59 WBC 18.5 H (3.8-10.6) k/uL RBC 3.30 L (4.30-5.90) m/uL Hgb 8.6 L (13.0-17.5) gm/dL Hct 28.5 L (39.0-53.0) % MCHC 30.2 L (31.0-37.0) g/dL RDW 16.8 H (11.5-15.5) % Neutrophils # (1.3-7.7) k/uL APTT 76.5 H (22.0-30.0) sec Sodium (137-145) mmol/L Carbon Dioxide (22-30) mmol/L BUN (9-20) mg/dL Creatinine (0.66-1.25) mg/dL Glucose (74-99) mg/dL POC Glucose (mg/dL) 193 H (75-99) mg/dL Triglycerides (<150) mg/dL 11/23/18 11/23/18 11/24/18 Range/Units 20:41 22:23 05:26 WBC 16.1 H (3.8-10.6) k/uL RBC 2.96 L (4.30-5.90) m/uL Hgb 8.1 L (13.0-17.5) gm/dL Hct 25.1 L (39.0-53.0) % MCHC (31.0-37.0) g/dL RDW 17.4 H (11.5-15.5) % Neutrophils # 13.7 H (1.3-7.7) k/uL APTT 73.8 H (22.0-30.0) sec Sodium (137-145) mmol/L Carbon Dioxide (22-30) mmol/L BUN (9-20) mg/dL Creatinine (0.66-1.25) mg/dL Glucose (74-99) mg/dL POC Glucose (mg/dL) 135 H (75-99) mg/dL Triglycerides (<150) mg/dL 11/24/18 11/24/18 11/24/18 Range/Units 05:26 05:26 06:58 WBC (3.8-10.6) k/uL RBC (4.30-5.90) m/uL Hgb (13.0-17.5) gm/dL Hct (39.0-53.0) % MCHC (31.0-37.0) g/dL RDW (11.5-15.5) % Neutrophils # (1.3-7.7) k/uL APTT 55.7 H (22.0-30.0) sec Sodium 136 L (137-145) mmol/L Carbon Dioxide 18 L (22-30) mmol/L BUN 64 H (9-20) mg/dL Creatinine 1.92 H (0.66-1.25) mg/dL Glucose 155 H (74-99) mg/dL POC Glucose (mg/dL) 180 H (75-99) mg/dL Triglycerides 285 H (<150) mg/dL Assessment and Plan Assessment: Assessment #1 acute non-ST patient myocardial infarction #2 cardiac arrest with V. fib. #3 paroxysmal atrial fibrillation #4 hypertension #5 dyslipidemia #6 peripheral arterial disease Plan #1 continue the current medical regimen #2 try to wean the patient from nitro drip #3 continue dual antiplatelet therapy #4 increase the dose of metoprolol #5 increase the dose of hydralazine #6 start oral nitrates #7 monitor the kidney function and electrolytes #8 monitor the hemoglobin and blood transfusion if the hemoglobin drops below 7. Thank you for allowing us participate in his care
[2018-11-24] MEDS: IPRATROPIUM-ALBUTEROL 3 ML NEB INHALATION SCH ×4 (07:44→20:02)
[2018-11-24] MEDS: ASPIRIN 325 MG TAB PO SCH (08:19)
[2018-11-24] MEDS: PANTOPRAZOLE 40 MG/10 ML VIAL IVP SCH (08:19)
[2018-11-24] MEDS: INSULIN ASPART (NovoLOG) 100 UNIT/ML VIAL SQ SCH ×4 (08:19→20:41)
[2018-11-24] MEDS: ISOSORBIDE MONONITRATE ER 30 MG TAB.ER.24H PO SCH (08:20)
[2018-11-24] MEDS: hydrALAZINE HCL 50 MG TAB PO SCH ×2 (08:20→20:41)
[2018-11-24] MEDS: HYDROcodone/APAP 5-325MG 1 EACH TAB PO PRN ×4 (08:20→23:57)
[2018-11-24] MEDS: ATORVASTATIN 40 MG TAB PO SCH (08:20)
[2018-11-24] MEDS: CLOPIDOGREL 75 MG TAB PO SCH (08:20)
[2018-11-24] MEDS: POTASSIUM CHLORIDE ER 20 MEQ TAB.ER PO SCH (08:20)
[2018-11-24] MEDS: METOPROLOL TARTRATE 50 MG TAB PO SCH ×2 (08:20→19:08)
--- NOTE | 2018-11-24 08:57 | XR ---
EXAMINATION TYPE: XR chest 1V portable DATE OF EXAM: 11/24/2018 COMPARISON: Prior chest x-ray 11/22/2018 HISTORY: Shortness of breath TECHNIQUE: Single frontal view of the chest is obtained. FINDINGS: Patient is post median sternotomy, heart size is stable and enlarged. Interstitium is incr eased. There is no evident pneumothorax or pleural effusion. Pulmonary vascularity is stable. There a re be calcific tendinitis in the right shoulder. There are overlying cardiac leads. IMPRESSION: Correlate for pulmonary venous hypertension and interstitial edema.
[2018-11-24] MEDS: amLODIPine 5 MG TAB PO SCH ×2 (09:07→20:41)
--- NOTE | 2018-11-24 09:25 | P.PN ---
Subjective Progress Note Date: 11/24/18 This is a 73-year-old male patient with extensive cardiac history including coronary artery disease with previous bypass surgery, chronic A. fib, diastolic heart failure, hypertension and hyperlipidemia and COPD with chronic hypoxic respiratory failure maintained on oxygen at 4 L per minute nasal cannula with an FEV1 of 63% of predicted, diffusion capacity of 61% predicted and total lung capacity of 99% of predicted. The patient's developed an acute shortness of breath. He felt some chest discomfort subsequently was unable to breathe. He asked to be moved to the hospital. The patient was brought via EMS. The patient admitted that he was progressively getting more short of breath and he had difficulties and laying down flat. He was quite tachypneic at a time of admission and the blood pressure was also elevated. Chest x-ray showed cardiomegaly and pulmonary edema. The initial blood pressure was 180/94 in the patient's respiratory rate was 24. Based on all this, the patient was given diuretics. The patient was started on a nitroglycerin drip. The patient was placed on a BiPAP. 30 minutes while being in the emergency, the patient became acutely unresponsive. air sampling and monitoring showed polymorphic ventricular tachycardia consistent with torsade de pointes. Based on this, the patient wound received an immediate cardioversion with 200 J biphasic and the patient was also given 2 g of magnesium 1 g of calcium. The cardioversion was successful. EKG showed no significant abnormalities or prolongation of the QT. The patient is currently in normal sinus rhythm with PACs and the patient has a 70 her conduction delay, probably a left bundle branch block pattern. The first set of cardiac enzymes showed a troponin of 0.07. BNP was 4530. Creatinine is at 1.5 with a BUN of 36. The patient got transferred to the intensive care unit and while on the BiPAP. The patient is on a BiPAP pressure of 14/7 cm of water with an FiO2 of 40%. Is receiving Lasix 40 mg IV push every 12 hours. He is on long-term articulation with Xarelto 2.5 mg twice a day. He was started on clevidipine drip for tighter blood pressure control. He was also restarted back on hydralazine and metoprolol. Nitroglycerin drip is also running at 5 g per minute. No chest pain. No back pain. No arm pain. No neck pain. No further episodes of arrhythmias at this point in time. Echocardiogram is to follow. Cardiology consultation is to follow. On 11/23/2018 I'm seeing this patient for a follow-up. This morning the patient is feeling better and he seems to much more comfortable compared to yesterday. The patient was taken off the BiPAP which was set at a pressure of 14/7 cm of water and currently is on 40 of oxygen by nasal cannula which is very close to his baseline. He is free of any chest pains no nitroglycerin drip which is running at 60 g per minute. His BP is under better control while being on Cleviprex at the rate of 3 mg an hour. The patient diuresed well over the past 12 hours while being on IV Lasix. Creatinine is up to 1.9 and the patient will be taken off the diuretics. No cough or sputum production. No chest pain this morning. His cardiac rhythm is sinus and the patient remains on IV heparin. Cardiology is on the case and the plan is to proceed with a cardiac catheterization within the next 24-48 hours. Otherwise, no other significant events on this patient overnight. A repeat echo was ordered and the results are still pending for now. On 11/24/2018 I'm seeing this patient for a follow-up. He is quite comfortable this morning her 40s of oxygen nasal cannula. Overnight he had to be placed back on a BiPAP and this morning his back off. His son nitroglycerin drip which has been cut down to 40 g. He is also on Cleviprex drip which is running at 2 mg an hour. Blood pressure is still fluctuating. Creatinine is up to 1.9. History of any chest pain. No nausea. No vomiting. No abdominal pain. He has remained hemodynamically stable. Cardiac rhythm is sinus for now. He remains on IV heparin. Ultimately plan is to proceed with a cardiac catheterization. This was not done today as the patient's creatinine has been up to 1.9. We'll monitor the renal function will continue to follow. Repeat echo showed a preserved LV function with an ejection fraction of 50-55%. There is inferior hypokinesis, mild MR, moderate pulmonary hypertension with a PA pressure 46. Objective - Vital Signs Vital signs: Vital Signs Temp 98.1 F 11/24/18 08:00 Pulse 72 11/24/18 09:00 Resp 17 11/24/18 09:00 BP 128/49 11/24/18 09:00 Pulse Ox 94 L 11/24/18 09:00 Intake & Output 11/23/18 11/24/18 11/24/18 18:59 06:59 18:59 Intake Total 861.101 490.067 139.633 Output Total 410 925 200 Balance 451.101 -434.933 -60.367 Weight 69.9 kg 70 kg Intake: IV 200 240 60 Sodium Chloride 0.9% 1, 200 240 60 000 ml @ 20 mls/hr IV . Q24H [facility] Rx#:[id number] Intake, IV Titration 203.101 250.067 79.633 Amount Clevidipine Butyrate 25 63.8 0.067 49.933 mg In Empty Bag 1 bag @ 1 MG/HR 2 mls/hr IV .Q24H [facility] Rx#:[id number] Heparin Sod,Pork in 0.45% 139.301 NaCl 25,000 unit In 0.45 % NaCl 1 250ml.bag @ 12 UNITS/KG/HR 8.165 mls/hr IV .Q24H [facility] Rx#: [id number] Nitroglycerin-D5w Pmx 50 250 29.7 mg In Dextrose/Water 1 250ml.bag @ Titrate IV . Q0M [facility] Rx#:[id number] Oral 458 Output: Urine 410 925 200 Other: Voiding Method Urinal Urinal # Voids 1 # Bowel Movements 1 - Exam GENERAL EXAM: 72-year-old white male, cachectic, currently on 4 L of oxygen by nasal cannula and he is breathing without any major difficulties. HEAD: Normocephalic/atraumatic. EYES: Normal reaction of pupils, equal size. Conjunctiva pink, sclera white. NOSE: Clear with pink turbinates. THROAT: No erythema or exudates. NECK: No masses, no JVD, no thyroid enlargement, no adenopathy. CHEST: No chest wall deformity. Symmetrical expansion. LUNGS: Equal air entry with minimal crackles at the lung bases and the patient is prolongation of expiratory phase of breathing and scattered expiratory wheezes heard throughout the lung randolph. Air entry overall is diminished. CVS: Irregular rate and rhythm, consistent with atrial fibrillation., normal S1 and S2, no gallops, no murmurs, no rubs ABDOMEN: Soft, nontender. No hepatosplenomegaly, normal bowel sounds, no gua rding or rigidity. EXTREMITIES: No clubbing, no cyanosis, 1+ pulses and upper and lower extremities. No edema MUSCULOSKELETAL: Muscle strength and tone normal. SPINE: No scoliosis or deformity SKIN: No rashes CENTRAL NERVOUS SYSTEM: Sedated. No focal deficits, tone is normal in all 4 extremities. PSYCHIATRIC: Calm, alert and oriented. - Labs CBC & Chem 7: 11/24/18 05:26 11/24/18 05:26 Labs: Abnormal Lab Results - Last 24 Hours (Table) 11/23/18 11/23/18 11/23/18 Range/Units 09:00 12:02 15:24 WBC 18.5 H (3.8-10.6) k/uL RBC 3.30 L (4.30-5.90) m/uL Hgb 8.6 L (13.0-17.5) gm/dL Hct 28.5 L (39.0-53.0) % MCHC 30.2 L (31.0-37.0) g/dL RDW 16.8 H (11.5-15.5) % Neutrophils # (1.3-7.7) k/uL APTT 46.8 H (22.0-30.0) sec Sodium (137-145) mmol/L Carbon Dioxide (22-30) mmol/L BUN (9-20) mg/dL Creatinine (0.66-1.25) mg/dL Glucose (74-99) mg/dL POC Glucose (mg/dL) 129 H (75-99) mg/dL Triglycerides (<150) mg/dL 11/23/18 11/23/18 11/23/18 Range/Units 15:24 16:59 20:41 WBC (3.8-10.6) k/uL RBC (4.30-5.90) m/uL Hgb (13.0-17.5) gm/dL Hct (39.0-53.0) % MCHC (31.0-37.0) g/dL RDW (11.5-15.5) % Neutrophils # (1.3-7.7) k/uL APTT 76.5 H (22.0-30.0) sec Sodium (137-145) mmol/L Carbon Dioxide (22-30) mmol/L BUN (9-20) mg/dL Creatinine (0.66-1.25) mg/dL Glucose (74-99) mg/dL POC Glucose (mg/dL) 193 H 135 H (75-99) mg/dL Triglycerides (<150) mg/dL 11/23/18 11/24/18 11/24/18 Range/Units 22:23 05:26 05:26 WBC 16.1 H (3.8-10.6) k/uL RBC 2.96 L (4.30-5.90) m/uL Hgb 8.1 L (13.0-17.5) gm/dL Hct 25.1 L (39.0-53.0) % MCHC (31.0-37.0) g/dL RDW 17.4 H (11.5-15.5) % Neutrophils # 13.7 H (1.3-7.7) k/uL APTT 73.8 H (22.0-30.0) sec Sodium 136 L (137-145) mmol/L Carbon Dioxide 18 L (22-30) mmol/L BUN 64 H (9-20) mg/dL Creatinine 1.92 H (0.66-1.25) mg/dL Glucose 155 H (74-99) mg/dL POC Glucose (mg/dL) (75-99) mg/dL Triglycerides 285 H (<150) mg/dL 11/24/18 11/24/18 Range/Units 05:26 06:58 WBC (3.8-10.6) k/uL RBC (4.30-5.90) m/uL Hgb (13.0-17.5) gm/dL Hct (39.0-53.0) % MCHC (31.0-37.0) g/dL RDW (11.5-15.5) % Neutrophils # (1.3-7.7) k/uL APTT 55.7 H (22.0-30.0) sec Sodium (137-145) mmol/L Carbon Dioxide (22-30) mmol/L BUN (9-20) mg/dL Creatinine (0.66-1.25) mg/dL Glucose (74-99) mg/dL POC Glucose (mg/dL) 180 H (75-99) mg/dL Triglycerides (<150) mg/dL Assessment and Plan Plan: 1 acute hypoxic respiratory failure secondary to acute pulmonary edema, cu rrently the patient is off the BiPAP and the patient is back on 4 L of oxygen by nasal cannula. Patient is still requiring on and off BiPAP use for Moira support. Last night he was placed back on a BiPAP and this morning is back on oxygen 40s per minute nasal cannula. 2 acute hypertensive emergency, currently on IV Cleviprex for blood pressure control mode and the medication still running at 2 mg an hour and this will be gradually weaned off. 3 acute torsade de pointes, polymorphic V. tach, post successful cardioversion with 200 J 4 chronic atrial fibrillation with long-term articulation with Xarelto him a current rhythm is sinus and the patient was taken off the Xarelto and placed on IV heparin. 5 coronary artery disease with previous bypass surgery and previous coronary intervention and stenting. The patient comes in for with acute coronary syndrome and unstable angina. The patient has some nonspecific EKG changes and there is a limited troponin leak. A setting of an acute polymorphic V. tach, the patient would likely need further investigation including a cardiac cathete rization later stage. 7 peripheral vascular disease with previous history of bilateral stenting of the lower extremities 8 chronic stage III kidney disease him a and there is a component of acute ki dney injury with a creatinine is up to 1.9, likely secondary to diuresis. Diuretics have been stopped in the creatinine remains unchanged compared to yesterday. 9 hyperlipidemia 10 chronic anemia, chronic anemia 11 acid reflux 12 osteoarthritis 13 previous history of right-sided pleural effusion postthoracentesis and the fluid cytology was negative for malignancy 14 hiatal hernia 15 previous history of GI bleed and the patient had a colonoscopy and EGD back in July 2017 that showed some mild gastritis and colonic polyps. Currently the patient and to coagulation with 16 hemorrhoids 17 chronic back pain 18 migraine 19 previous history of osteoarthritis 20 hypertension, poorly controlled 21 COPD with an FEV1 of 63% of predicted at baseline Plan The patient on Norvasc 5 mg by mouth twice a day. Wean off Cleviprex. Gradually wean down the nitroglycerin and watching for any symptoms of angina or chest pain. Monitor the cardiac rhythm. Monitor renal function. Artery ca theterization is to follow once the kidney function stabilizes. Meanwhile, echo was noted. We'll continue using BiPAP on and off during the day and overnight for respiratory support. Keep the IV heparin running for now. Continue the beta blockers. Continue aspirin. Continue Plavix. We'll follow.
[2018-11-24 11:54] LABS: Glucose,Whole Blood 172 mg/dL (75-99)
[2018-11-24] MEDS: SODIUM CHLORIDE 0.9% 1,000 ML IV SCH (12:19)
[2018-11-24 16:49] LABS: Glucose,Whole Blood 196 mg/dL (75-99)
[2018-11-24] MEDS: HEPARIN SOD,PORK IN 0.45% NACL 25,000 UNIT in 0.45% NACL 1 250ML.BAG IV SCH (17:39)
--- NOTE | 2018-11-24 18:24 | P.PN ---
Subjective Progress Note Date: 11/24/18 (Delayed charting patient seen at 10 AM) Principal diagnosis: dyspnea Patient is a 73-year-old male past medical history of atrial fibrillation, congestive heart failure with preserved ejection fraction of 55%, coronary artery disease with history of myocardial infarction and three-vessel bypass in 2006, hypertension, dyslipidemia, COPD, and chronic hypoxic respirator y failure on 4 L nasal cannula who presented to the ER via EMS for chest pain and shortness of breath. In the ER he underwent an extensive evaluation. Initially on arrival his pulse was 96 and blood pressure was 180/94. He was in acute respiratory distress and was subsequently placed on BiPAP therapy. Apparently bedside ultrasound was done in the ER consistent with pulmonary edema. He was started on a nitro drip. Approximately 30 minutes later he went into polymorphic tachycardia consistent with torsades and loss of consciousness. He required cardioversion 1 and he was given magnesium. Initial laboratory analysis showed an elevated white blood cell count at 13, hemoglobin of 10.4, c reatinine of 1.5 which appears to be baseline, and glucose of 212. His potassium was normal at 4.4, magnesium slightly high at 2.4, and calcium was normal at 9.4. Initial BNP was elevated at 4530. Initial troponin was elevated at 0.070. Chest x-ray showed new basilar opacities consistent with multi focal pneumonia or atelectasis. He was given a dose of aspirin and Lasix. Arrangements were made for admission to the ICU. Cardiology and critical care were consulted. He was started on clevidipine gtt. he was attempted to be weaned off nitro and had recurrent chest pain and therefore nitro was restarted. He was also started on a heparin drip. Plan is for cardiac cath on 11/14 team. He has slight rise in creatinine on 11/23 likely secondary to forced diuresis. He was able to be weaned off BiPAP and was on his home oxygen. Creatinine continued to be elevated on 11/24 and therefore cardiac catheterization was delayed. Patient seen and examined at bedside. Feeling slightly short of breath today, concerned that cardiac cath had to be delayed, no nausea, no vomiting, no diarrhea. at bedside and all questions answered Objective - Vital Signs Vital signs: Vital Signs Temp 98.0 F 11/24/18 16:00 Pulse 65 11/24/18 17:00 Resp 16 08/16/19 17:00 BP 155/68 11/24/18 17:00 Pulse Ox 94 L 11/24/18 17:00 Intake & Output 11/23/18 11/24/18 11/24/18 18:59 06:59 18:59 Intake Total 861.101 490.067 549.633 Output Total 410 925 450 Balance 451.101 -434.933 99.633 Weight 69.9 kg 70 kg Intake: IV 200 240 220 Sodium Chloride 0.9% 1, 200 240 220 000 ml @ 20 mls/hr IV . Q24H [facility] Rx#:[id number] Intake, IV Titration 203.101 250.067 329.633 Amount Clevidipine Butyrate 25 63.8 0.067 49.933 mg In Empty Bag 1 bag @ 1 MG/HR 2 mls/hr IV .Q24H [facility] Rx#:[id number] Heparin Sod,Pork in 0.45% 139.301 250 NaCl 25,000 unit In 0.45 % NaCl 1 250ml.bag @ 12 UNITS/KG/HR 8.165 mls/hr IV .Q24H [facility] Rx#: [id number] Nitroglycerin-D5w Pmx 50 250 29.7 mg In Dextrose/Water 1 250ml.bag @ Titrate IV . Q0M [facility] Rx#:[id number] Oral 458 Output: Urine 410 925 450 Other: Voiding Method Urinal Urinal Urinal # Voids 1 # Bowel Movements 1 - Exam General: non toxic, no distress, appears at stated age Derm: warm, dry Head: atraumatic, normocephalic, symmetric Eyes: EOMI, no lid lag, anicteric sclera Mouth: no lip lesion, mucus membranes moist Cardiovascular: S1S2 reg, no murmur, positive posterior tibial pulse bilateral, Lungs: Decreased breath sounds bilateral, no rhonchi, no rales , no accessory muscle use Abdominal: soft, nontender to palpation, no guarding, no appreciable organomegaly Ext: no gross muscle atrophy, no edema, no contractures Neuro: CN II-XI grossly intact, no focal neuro deficits Psych: Alert, oriented, flat affect - Labs CBC & Chem 7: 11/24/18 05:26 11/24/18 05:26 Labs: Abnormal Lab Results - Last 24 Hours (Table) 11/23/18 11/23/18 11/24/18 Range/Units 20:41 22:23 05:26 WBC 16.1 H (3.8-10.6) k/uL RBC 2.96 L (4.30-5.90) m/uL Hgb 8.1 L (13.0-17.5) gm/dL Hct 25.1 L (39.0-53.0) % RDW 17.4 H (11.5-15.5) % Neutrophils # 13.7 H (1.3-7.7) k/uL APTT 73.8 H (22.0-30.0) sec Sodium (137-145) mmol/L Carbon Dioxide (22-30) mmol/L BUN (9-20) mg/dL Creatinine (0.66-1.25) mg/dL Glucose (74-99) mg/dL POC Glucose (mg/dL) 135 H (75-99) mg/dL Triglycerides (<150) mg/dL 11/24/18 11/24/18 11/24/18 Range/Units 05:26 05:26 06:58 WBC (3.8-10.6) k/uL RBC (4.30-5.90) m/uL Hgb (13.0-17.5) gm/dL Hct (39.0-53.0) % RDW (11.5-15.5) % Neutrophils # (1.3-7.7) k/uL APTT 55.7 H (22.0-30.0) sec Sodium 136 L (137-145) mmol/L Carbon Dioxide 18 L (22-30) mmol/L BUN 64 H (9-20) mg/dL Creatinine 1.92 H (0.66-1.25) mg/dL Glucose 155 H (74-99) mg/dL POC Glucose (mg/dL) 180 H (75-99) mg/dL Triglycerides 285 H (<150) mg/dL 11/24/18 11/24/18 Range/Units 11:52 16:37 WBC (3.8-10.6) k/uL RBC (4.30-5.90) m/uL Hgb (13.0-17.5) gm/dL Hct (39.0-53.0) % RDW (11.5-15.5) % Neutrophils # (1.3-7.7) k/uL APTT (22.0-30.0) sec Sodium (137-145) mmol/L Carbon Dioxide (22-30) mmol/L BUN (9-20) mg/dL Creatinine (0.66-1.25) mg/dL Glucose (74-99) mg/dL POC Glucose (mg/dL) 172 H 196 H (75-99) mg/dL Triglycerides (<150) mg/dL Assessment and Plan Assessment: NSTEMI - ASA, heparin gtt, metoprolol, plavix, statin - plan is for cath once renal function stable - nitro gtt as needed for pain, attempt to wean - echo with inferior wall hypokanesis , preserved ejection fraction Cardiac arrest with ventricular fibrillation - potassium and magnesium levels are normal - tele - cardio recs appreciated - on heparin gtt with xarelto on hold for cath -Cardiac catheterization once renal function is stable AIDEN on Chronic kidney disease stage III - likely due to forced diuresis - baseline at 1.5 - avoid additional nephrotoxic agents - follow BMP -Off Lasix -Check urinalysis and renal ultrasound Chronic CHF EF 55% - lopressor - Not On WHIT inhibitor at baseline - Strict I's and O's - Daily weight P. A fib - metoprolol - xarelto on hold for possible cath Hypertensive urgency, improved -Continue with nitro drip is being wenaed and patient transitioned to imdur , hydralazine increased , Clevidipine being stopped and started on norvasc, metoprolol -Follow blood pressures COPD without exacerbation - prn duonebrs Acute on chronic hypoxic respiratory failure, improved Pulmonary edema, resolved Chronic: Arthritis Chronic low back pain History of gastric ulcers DVT prophylaxis: heparin gtt Discussed with: patient, ICU nursing, Dr. Simeon Anticipated discharge: 3-[address]: home A total of 35 minutes was spent on the care of this complex patient more than 50% of the time was spent in counseling and care coordination.
[2018-11-24 19:57] LABS: Appearance,Urine Clear (Clear); Bilirubin,Urine Negative (Negative); Blood,Urine Negative (Negative); Color,Urine Yellow; Glucose,Urine (UA) Negative (Negative); Ketones,Urine Negative (Negative); Leukocyte Esterase,Urine Negative (Negative); Nitrite,Urine Negative (Negative); PH, Urine 5.5 (5.0-8.0); Protein,Urine Negative (Negative); Specific Gravity,Urine 1.015 (1.001-1.035); Urobilinogen,Urine <2.0 mg/dL (<2.0)
[2018-11-24 20:42] LABS: Glucose,Whole Blood 140 mg/dL (75-99)
[2018-11-25] MEDS: NITROGLYCERIN-D5W PMX 50 MG in DEXTROSE/WATER 1 250ML.BAG IV SCH (04:08)
[2018-11-25 05:50] LABS: Anisocytosis Slight; Basophils % (A) 0 %; Eosinophils # (A) 0.1 k/uL (0-0.7); Eosinophils % (A) 1 %; HCT 24.6 % (39.0-53.0); HGB 7.7 gm/dL (13.0-17.5); Hypochromasia Slight; Lymphocytes # (A) 1.3 k/uL (1.0-4.8); Lymphocytes % (A) 11 %; MCH 26.2 pg (25.0-35.0); MCHC 31.4 g/dL (31.0-37.0); MCV 83.4 fL (80.0-100.0); Mean Platelet Volume 7.1; Monocytes # (A) 0.6 k/uL (0-1.0); Monocytes % (A) 6 %; Neutrophils # (A) 9.1 k/uL (1.3-7.7); Neutrophils % (A) 81 %; Platelet Count 168 k/uL (150-450); RBC 2.95 m/uL (4.30-5.90); RDW 17.1 % (11.5-15.5); WBC 11.2 k/uL (3.8-10.6)
[2018-11-25 06:00] LABS: Albumin 3.5 g/dL (3.5-5.0); Calcium 8.6 mg/dL (8.4-10.2); Potassium 3.8 mmol/L (3.5-5.1); Total Bilirubin 1.1 mg/dL (0.2-1.3)
[2018-11-25] MEDS: hydrALAZINE HCL 50 MG TAB PO SCH ×2 (06:56→20:39)
[2018-11-25] MEDS: INSULIN ASPART (NovoLOG) 100 UNIT/ML VIAL SQ SCH ×4 (07:06→20:37)
--- NOTE | 2018-11-25 07:11 | XR ---
EXAMINATION TYPE: XR chest 1V portable DATE OF EXAM: 11/25/2018 HISTORY: CHF. REFERENCE: Previous study dated 11/24/2018. FINDINGS: There has been a midline sternotomy. Lung volumes are prominent. Heart size upper limits of normal. The left CP angle is obscured from thi s study. There continues be bibasilar airspace disease. IMPRESSION: 1. COPD. 2. BIBASILAR AIRSPACE DISEASE MAY REPRESENT EDEMA SUPERIMPOSED UPON ABNORMAL LUNG ARCHITECTURE. PLEAS E CORRELATE CLINICALLY.
[2018-11-25 07:14] LABS: Glucose,Whole Blood 136 mg/dL (75-99)
[2018-11-25] MEDS: IPRATROPIUM-ALBUTEROL 3 ML NEB INHALATION SCH ×4 (07:21→19:50)
[2018-11-25] MEDS: ASPIRIN 325 MG TAB PO SCH (08:23)
[2018-11-25] MEDS: amLODIPine 5 MG TAB PO SCH ×2 (08:23→20:39)
[2018-11-25] MEDS: ISOSORBIDE MONONITRATE ER 30 MG TAB.ER.24H PO SCH (08:23)
[2018-11-25] MEDS: ATORVASTATIN 40 MG TAB PO SCH (08:23)
[2018-11-25] MEDS: HYDROcodone/APAP 5-325MG 1 EACH TAB PO PRN ×2 (08:23→16:51)
[2018-11-25] MEDS: METOPROLOL TARTRATE 50 MG TAB PO SCH ×2 (08:23→20:39)
[2018-11-25] MEDS ORDERED: CALCIUM CARBONATE 500 MG CHEWABLE PO PRN (08:23)
[2018-11-25] MEDS: CLOPIDOGREL 75 MG TAB PO SCH (08:23)
[2018-11-25] MEDS: POTASSIUM CHLORIDE ER 20 MEQ TAB.ER PO SCH (08:23)
[2018-11-25] MEDS: PANTOPRAZOLE 40 MG/10 ML VIAL IVP SCH (08:24)
--- NOTE | 2018-11-25 09:30 | US ---
EXAMINATION TYPE: US renals and bladder DATE OF EXAM: 11/25/2018 COMPARISON: NONE CLINICAL HISTORY: AIDEN. ICU patient with AIDEN EXAM MEASUREMENTS: Right Kidney: 9.5 x 5.5 x 5.0 cm Left Kidney: 8.7 x 4.4 x 4.7 cm Right Kidney: 0.8cm cyst seen, otherwise wnl Left Kidney: limited views of lt kidney due to bowel gas, smaller in size, 2.0cm cluster of cysts see n inferiorly Bladder: wnl Bilateral Jets seen: yes There is no evidence for hydronephrosis at this point in time. No nephrolithiasis is seen. No shania s are identified. The urinary bladder is anechoic. Bilateral ureteral jets are seen. IMPRESSION: BENIGN-APPEARING RENAL CYSTIC DISEASE.
[2018-11-25] MEDS: SODIUM CHLORIDE 0.9% 1,000 ML IV SCH (10:00)
--- NOTE | 2018-11-25 11:21 | P.PN ---
Subjective Progress Note Date: 11/25/18 This is a 73-year-old male patient with extensive cardiac history including coronary artery disease with previous bypass surgery, chronic A. fib, diastolic heart failure, hypertension and hyperlipidemia and COPD with chronic hypoxic respiratory failure maintained on oxygen at 4 L per minute nasal cannula with an FEV1 of 63% of predicted, diffusion capacity of 61% predicted and total lung capacity of 99% of predicted. The patient's developed an acute shortness of breath. He felt some chest discomfort subsequently was unable to breathe. He asked to be moved to the hospital. The patient was brought via EMS. The patient admitted that he was progressively getting more short of breath and he had difficulties and laying down flat. He was quite tachypneic at a time of admission and the blood pressure was also elevated. Chest x-ray showed cardiomegaly and pulmonary edema. The initial blood pressure was 180/94 in the patient's respiratory rate was 24. Based on all this, the patient was given diuretics. The patient was started on a nitroglycerin drip. The patient was placed on a BiPAP. 30 minutes while being in the emergency, the patient became acutely unresponsive. manager monitoring showed polymorphic ventricular tachycardia consistent with torsade de pointes. Based on this, the patient wound received an immediate cardioversion with 200 J biphasic and the patient was also given 2 g of magnesium 1 g of calcium. The cardioversion was successful. EKG showed no significant abnormalities or prolongation of the QT. The patient is currently in normal sinus rhythm with PACs and the patient has a 70 her conduction delay, probably a left bundle branch block pattern. The first set of cardiac enzymes showed a troponin of 0.07. BNP was 4530. Creatinine is at 1.5 with a BUN of 36. The patient got transferred to the intensive care unit and while on the BiPAP. The patient is on a BiPAP pressure of 14/7 cm of water with an FiO2 of 40%. Is receiving Lasix 40 mg IV push every 12 hours. He is on long-term articulation with Xarelto 2.5 mg twice a day. He was started on clevidipine drip for tighter blood pressure control. He was also restarted back on hydralazine and metoprolol. Nitroglycerin drip is also running at 5 g per minute. No chest pain. No back pain. No arm pain. No neck pain. No further episodes of arrhythmias at this point in time. Echocardiogram is to follow. Cardiology consultation is to follow. On 11/23/2018 I'm seeing this patient for a follow-up. This morning the patient is feeling better and he seems to much more comfortable compared to yesterday. The patient was taken off the BiPAP which was set at a pressure of 14/7 cm of water and currently is on 40 of oxygen by nasal cannula which is very close to his baseline. He is free of any chest pains no nitroglycerin drip which is running at 60 g per minute. His BP is under better control while being on Cleviprex at the rate of 3 mg an hour. The patient diuresed well over the past 12 hours while being on IV Lasix. Creatinine is up to 1.9 and the patient will be taken off the diuretics. No cough or sputum production. No chest pain this morning. His cardiac rhythm is sinus and the patient remains on IV heparin. Cardiology is on the case and the plan is to proceed with a cardiac catheterization within the next 24-48 hours. Otherwise, no other significant events on this patient overnight. A repeat echo was ordered and the results are still pending for now. On 11/24/2018 I'm seeing this patient for a follow-up. He is quite comfortable this morning her 40s of oxygen nasal cannula. Overnight he had to be placed back on a BiPAP and this morning his back off. His son nitroglycerin drip which has been cut down to 40 g. He is also on Cleviprex drip which is running at 2 mg an hour. Blood pressure is still fluctuating. Creatinine is up to 1.9. History of any chest pain. No nausea. No vomiting. No abdominal pain. He has remained hemodynamically stable. Cardiac rhythm is sinus for now. He remains on IV heparin. Ultimately plan is to proceed with a cardiac catheterization. This was not done today as the patient's creatinine has been up to 1.9. We'll monitor the renal function will continue to follow. Repeat echo showed a preserved LV function with an ejection fraction of 50-55%. There is inferior hypokinesis, mild MR, moderate pulmonary hypertension with a PA pressure 46. On 11/25/2018, patient is being seen for a follow-up. The night was uneventful. Nevertheless this morning the patient became acutely shortness of breath and he developed chest pain. His still in nitroglycerin drip at 40 mics. He is also on IV heparin. He developed atrial fibrillation. He also became hypertensive. Note that the Cleviprex drip has been discontinued yesterday. Immediately was placed on a BiPAP at a pressure of 14/7 cm of water. He seems to much more rested for now. No nausea. No vomiting. No aspiration. Chest x-ray from this morning showed some cardiomegaly without signs of any pulmonary edema or failure. The hemoglobin today is at 7.7 with a white cell count of 11.2. Creatinine is improved and found to 1.43. He remains on aspirin. He remains on Plavix. He remains on beta blockers. Objective - Vital Signs Vital signs: Vital Signs Temp 100.0 F H 11/25/18 08:00 Pulse 80 11/25/18 11:15 Resp 14 11/25/18 10:00 BP 143/58 11/25/18 10:00 Pulse Ox 95 11/25/18 10:00 Intake & Output 11/24/18 11/25/18 11/25/18 18:59 06:59 18:59 Intake Total 569.633 910.3 530 Output Total 750 550 150 Balance -180.367 360.3 380 Weight 72.2 kg Intake: IV 240 240 80 Sodium Chloride 0.9% 1, 240 240 80 000 ml @ 20 mls/hr IV . Q24H [facility] Rx#:[id number] Intake, IV Titration 329.633 220.3 Amount Clevidipine Butyrate 25 49.933 mg In Empty Bag 1 bag @ 1 MG/HR 2 mls/hr IV .Q24H [facility] Rx#:[id number] Heparin Sod,Pork in 0.45% 250 NaCl 25,000 unit In 0.45 % NaCl 1 250ml.bag @ 12 UNITS/KG/HR 8.165 mls/hr IV .Q24H [facility] Rx#: [id number] Nitroglycerin-D5w Pmx 50 29.7 220.3 mg In Dextrose/Water 1 250ml.bag @ Titrate IV . Q0M [facility] Rx#:[id number] Oral 450 Tube Feeding 450 Output: Urine 750 550 150 Other: Voiding Method Urinal Urinal # Voids 1 - Exam GENERAL EXAM: 72-year-old white male, cachectic, currently on BiPAP for respiratory distress HEAD: Normocephalic/atraumatic. EYES: Normal reaction of pupils, equal size. Conjunctiva pink, sclera white. NOSE: Clear with pink turbinates. THROAT: No erythema or exudates. NECK: No masses, no JVD, no thyroid enlargement, no adenopathy. CHEST: No chest wall deformity. Symmetrical expansion. LUNGS: Equal air entry with minimal crackles at the lung bases and the patient is prolongation of expiratory phase of breathing and scattered expiratory wheezes heard throughout the lung randolph. Air entry overall is diminished. CVS: Irregular rate and rhythm, consistent with atrial fibrillation., normal S1 and S2, no gallops, no murmurs, no rubs ABDOMEN: Soft, nontender. No hepatosplenomegaly, normal bowel sounds, no guarding or rigidity. EXTREMITIES: No clubbing, no cyanosis, 1+ pulses and upper and lower extremities. No edema MUSCULOSKELETAL: Muscle strength and tone normal. SPINE: No scoliosis or deformity SKIN: No rashes CENTRAL NERVOUS SYSTEM: Sedated. No focal deficits, tone is normal in all 4 extremities. PSYCHIATRIC: Calm, alert and oriented. - Labs CBC & Chem 7: 11/25/18 05:12 11/25/18 05:12 Labs: Abnormal Lab Results - Last 24 Hours (Table) 11/24/18 11/24/18 11/24/18 Range/Units 11:52 16:37 20:30 WBC (3.8-10.6) k/uL RBC (4.30-5.90) m/uL Hgb (13.0-17.5) gm/dL Hct (39.0-53.0) % RDW (11.5-15.5) % Neutrophils # (1.3-7.7) k/uL APTT (22.0-30.0) sec BUN (9-20) mg/dL Creatinine (0.66-1.25) mg/dL Glucose (74-99) mg/dL POC Glucose (mg/dL) 172 H 196 H 140 H (75-99) mg/dL ALT (21-72) U/L Total Protein (6.3-8.2) g/dL 11/25/18 11/25/18 11/25/18 Range/Units 05:12 05:12 05:12 WBC 11.2 H (3.8-10.6) k/uL RBC 2.95 L (4.30-5.90) m/uL Hgb 7.7 L (13.0-17.5) gm/dL Hct 24.6 L (39.0-53.0) % RDW 17.1 H (11.5-15.5) % Neutrophils # 9.1 H (1.3-7.7) k/uL APTT 48.7 H (22.0-30.0) sec BUN 40 H (9-20) mg/dL Creatinine 1.43 H (0.66-1.25) mg/dL Glucose 124 H (74-99) mg/dL POC Glucose (mg/dL) (75-99) mg/dL ALT 11 L (21-72) U/L Total Protein 6.0 L (6.3-8.2) g/dL 11/25/18 Range/Units 07:03 WBC (3.8-10.6) k/uL RBC (4.30-5.90) m/uL Hgb (13.0-17.5) gm/dL Hct (39.0-53.0) % RDW (11.5-15.5) % Neutrophils # (1.3-7.7) k/uL APTT (22.0-30.0) sec BUN (9-20) mg/dL Creatinine (0.66-1.25) mg/dL Glucose (74-99) mg/dL POC Glucose (mg/dL) 136 H (75-99) mg/dL ALT (21-72) U/L Total Protein (6.3-8.2) g/dL Assessment and Plan Plan: 1 acute hypoxic respiratory failure secondary to acute pulmonary edema, cur rently the patient is off the BiPAP and the patient is back on 4 L of oxygen by nasal cannula. Patient is still requiring on and off BiPAP use for support. This morning he acutely became short of breath and developed chest pain and he was placed on BiPAP for breathing. 2 acute hypertensive emergency, currently o off the Cleviprex drip 3 acute torsade de pointes, polymorphic V. tach, post successful cardioversion with 200 J 4 chronic atrial fibrillation with long-term articulation with Xarelto him a current rhythm is sinus and the patient was taken off the Xarelto and placed on IV heparin. The patient is still having episodes of atrial fibrillation with rapid ventricular response alternating with a normal sinus rhythm. The patient is on IV heparin. The patient on beta blockers with metoprolol 100 mg by mouth twice a day. 5 coronary artery disease with previous bypass surgery and previous coronary intervention and stenting. The patient comes in for with acute coronary syndrome and unstable angina. The patient has some nonspecific EKG changes and there is a limited troponin leak. A setting of an acute polymorphic V. tach, the patient would likely need further investigation including a cardiac catheterization later stage. The patient is still having on and off chest pain. Cardiac catheter will be needed. 7 peripheral vascular disease with previous history of bilateral stenting of the lower extremities 8 chronic stage III kidney disease him a and there is a component of acute kidney injury with a creatinine is up to 1.9, likely secondary to diuresis. Diuretics have been stopped in the creatinine is improving and the creatinine is down to 1.4 9 hyperlipidemia 10 chronic anemia, chronic anemia 11 acid reflux 12 osteoarthritis 13 previous history of right-sided pleural effusion postthoracentesis and the fluid cytology was negative for malignancy 14 hiatal hernia 15 previous history of GI bleed and the patient had a colonoscopy and EGD back in July 2017 that showed some mild gastritis and colonic polyps. Currently the patient and to coagulation with IV heparin 16 hemorrhoids 17 chronic back pain 18 migraine 19 previous history of osteoarthritis 20 hypertension, poorly controlled 21 COPD with an FEV1 of 63% of predicted at baseline Plan Continue BiPAP for now for respiratory support. Continue metoprolol. Continue aspirin. Continue Plavix. Continue IV heparin. Continue atorvastatin drip. Discussed the case with cardiology and the patient would likely need a cardiac catheterization to investigate his episodic shortness of breath. He is currently on BiPAP for now. Continue bronchodilators. No signs of fluid overload. The renal Function continues to improve in the creatinine is down to 1.4. He'll be kept in ICU for another 24 hours.
[2018-11-25 12:25] LABS: Glucose,Whole Blood 131 mg/dL (75-99)
--- NOTE | 2018-11-25 13:23 | P.PN ---
Subjective Progress Note Date: 11/25/18 The patient is 73-year-old male who follows with Dr. Arcos as an outpatient, who has past medical history CAD status post stenting as well as CABG, severe PVD status post stenting, paroxysmal atrial fibrillation, hypertension, and dyslipidemia, who was admitted to the ICU after a witnessed cardiac arrest. Prior to his admission he had been experiencing chest discomfort, which was midsternal without radiation for 3 days. The chest discomfort was worse with exertion and associated with diaphoresis. Prior to coming to the emergency room he did have a syncopal episode, which is what prompted his arrival. In the emergency room, the patient had an episode of ventricular fibrillation/torsade, where he received a shock which returned him to sinus rhythm. He was then transferred to the ICU. During his ICU admission, he was placed on heparin and nitroglycerin drip. Due to the diuretics he received in the emergency room, his creatinine has trended up and his hemoglobin has been trending down. Overnight the patient had an episode of shortness of breath, where he required more oxygen. He was subsequently placed on BiPAP. During this time he didn't go into atrial fibrillation, however he spontaneously converted. His blood pressure has also been elevated. On exam this morning, he has resting comfortably on BiPAP. He denies any significant shortness of breath and states he is feeling well. He also denied any chest discomfort. CONSTITUTIONAL: Denies fever. Denies chills. CARDIOVASCULAR: Denies chest pain. Mild shortness of breath. Denies orthopnea. Denies PND. Denies palpitations. RESPIRATORY: Denies cough. GASTROINTESTINAL: Denies abdominal pain. Denies diarrhea. Denies constipation. Denies nausea. Denies vomiting. MUSCULOSKELETAL: Denies myalgias. INTEGUMENTARY: Denies pruitis. Denies rash. NEUROLOGIC: Denies numbness. Denies tingling. Denies weakness. ENDOCRINE: Denies fatigue. Denies weight change. Denies polydipsia. Denies polyurina. GENITOURINARY: Denies burning, hematuria or urgency with micturation. On exam: GENERAL: Well-appearing, well-nourished and in no acute distress. NECK: Supple without JVD or thyromegaly. LUNGS: Breath sounds clear to auscultation bilaterally. Respiration equal and unlabored. No wheezes, rales or rhonchi. HEART: Regular rate and rhythm without murmurs, rubs or gallops. S1 and S2 heard. EXTREMITIES: Normal range of motion, no edema. No clubbing or cyanosis. Peripheral pulses intact and strong. Echocardiogram showed normal LV function with mild valvular abnormalities and moderate pulmonary hypertension Labs: WBC 11.2, hemoglobin 7.7, hematocrit 24.6, platelet 168, sodium 138, potassium 3.8, BUN 40, creatinine 1.43, AST 17, ALT 11 Assessment: #1 acute non-ST myocardial infarction #2 cardiac arrest with V. fib #3 paroxysmal atrial fibrillation #4 hypertension #5 dyslipidemia #6 PVD Plan: Increase isosorbide to 60 mg per day and wean off nitroglycerin drip. Consider increasing hydralazine to 3 times a day if he continues to be hypertensive. Wi ll continue to monitor Objective - Vital Signs Vital signs: Vital Signs Temp 99.2 F 11/25/18 12:00 Pulse 82 11/25/18 12:00 Resp 16 11/25/18 12:00 BP 132/75 11/25/18 12:00 Pulse Ox 93 L 11/25/18 12:00 Intake & Output 11/24/18 11/25/18 11/25/18 18:59 06:59 18:59 Intake Total 569.633 910.3 530 Output Total 750 550 150 Balance -180.367 360.3 380 Weight 72.2 kg Intake: IV 240 240 80 Sodium Chloride 0.9% 1, 240 240 80 000 ml @ 20 mls/hr IV . Q24H [facility] Rx#:[id number] Intake, IV Titration 329.633 220.3 Amount Clevidipine Butyrate 25 49.933 mg In Empty Bag 1 bag @ 1 MG/HR 2 mls/hr IV .Q24H [facility] Rx#:[id number] Heparin Sod,Pork in 0.45% 250 NaCl 25,000 unit In 0.45 % NaCl 1 250ml.bag @ 12 UNITS/KG/HR 8.165 mls/hr IV .Q24H [facility] Rx#: [id number] Nitroglycerin-D5w Pmx 50 29.7 220.3 mg In Dextrose/Water 1 250ml.bag @ Titrate IV . Q0M [facility] Rx#:[id number] Oral 450 Tube Feeding 450 Output: Urine 750 550 150 Other: Voiding Method Urinal Urinal # Voids 1 - Labs CBC & Chem 7: 11/25/18 05:12 11/25/18 05:12 Labs: Abnormal Lab Results - Last 24 Hours (Table) 11/24/18 11/24/18 11/25/18 Range/Units 16:37 20:30 05:12 WBC 11.2 H (3.8-10.6) k/uL RBC 2.95 L (4.30-5.90) m/uL Hgb 7.7 L (13.0-17.5) gm/dL Hct 24.6 L (39.0-53.0) % RDW 17.1 H (11.5-15.5) % Neutrophils # 9.1 H (1.3-7.7) k/uL APTT (22.0-30.0) sec BUN (9-20) mg/dL Creatinine (0.66-1.25) mg/dL Glucose (74-99) mg/dL POC Glucose (mg/dL) 196 H 140 H (75-99) mg/dL ALT (21-72) U/L Total Protein (6.3-8.2) g/dL 11/25/18 11/25/18 11/25/18 Range/Units 05:12 05:12 07:03 WBC (3.8-10.6) k/uL RBC (4.30-5.90) m/uL Hgb (13.0-17.5) gm/dL Hct (39.0-53.0) % RDW (11.5-15.5) % Neutrophils # (1.3-7.7) k/uL APTT 48.7 H (22.0-30.0) sec BUN 40 H (9-20) mg/dL Creatinine 1.43 H (0.66-1.25) mg/dL Glucose 124 H (74-99) mg/dL POC Glucose (mg/dL) 136 H (75-99) mg/dL ALT 11 L (21-72) U/L Total Protein 6.0 L (6.3-8.2) g/dL 11/25/18 Range/Units 12:13 WBC (3.8-10.6) k/uL RBC (4.30-5.90) m/uL Hgb (13.0-17.5) gm/dL Hct (39.0-53.0) % RDW (11.5-15.5) % Neutrophils # (1.3-7.7) k/uL APTT (22.0-30.0) sec BUN (9-20) mg/dL Creatinine (0.66-1.25) mg/dL Glucose (74-99) mg/dL POC Glucose (mg/dL) 131 H (75-99) mg/dL ALT (21-72) U/L Total Protein (6.3-8.2) g/dL
--- NOTE | 2018-11-25 15:49 | P.PN ---
Subjective Progress Note Date: 11/25/18 (delayed charting patient seen at 0930) Principal diagnosis: dyspnea Patient is a 73-year-old male past medical history of atrial fibrillation, congestive heart failure with preserved ejection fraction of 55%, coronary artery disease with history of myocardial infarction and three-vessel bypass in 2006, hypertension, dyslipidemia, COPD, and chronic hypoxic respiratory failure on 4 L nasal cannula who presented to the ER via EMS for chest pain and shortness of breath. In the ER he underwent an extensive evaluation. Initially on arrival his pulse was 96 and blood pressure was 180/94. He was in acute respiratory distress and was subsequently placed on BiPAP therapy. Apparently bedside ultrasound was done in the ER consistent with pulmonary edema. He was started on a nitro drip. Approximately 30 minutes later he went into polymorphic tachycardia consistent with torsades and loss of consciousness. He required cardioversion 1 and he was given magnesium. Initial laboratory analysis showed an elevated white blood cell count at 13, hemoglobin of 10.4, creatinine of 1.5 which appears to be baseline, and glucose of 212. His potassium was normal at 4.4, magnesium slightly high at 2.4, and calcium was normal at 9.4. Initial BNP was elevated at 4530. Initial troponin was elevated at 0.070. Chest x-ray showed new basilar opacities consistent with multi focal pneumonia or atelectasis. He was given a dose of aspirin and Lasix. Arrangements were made for admission to the ICU. Cardiology and critical care were consulted. He was started on clevidipine gtt. he was attempted to be weaned off nitro and had recurrent chest pain and therefore nitro was restarted. He was also started on a heparin drip. Plan is for cardiac cath on 11/14 team. He has slight rise in creatinine on 11/23 likely secondary to forced diuresis. He was able to be weaned off BiPAP and was on his home oxygen. Creatinine continued to be elevated on 11/24 and therefore cardiac catheterization was delayed. On 11/25 again having chest pain, also went into A fib, started back on Bipap and given morning medications and chest pain improved. EKG reviewed and no new ischemic changes. Patient seen and examined at bedside. Chest pain improved. Feeling slightly nauseous. Minimal shortness of breath. No lightheadedness or dizziness. Objective - Vital Signs Vital signs: Vital Signs Temp 99.2 F 11/25/18 12:00 Pulse 82 11/25/18 15:12 Resp 15 11/25/18 14:00 BP 159/60 11/25/18 14:00 Pulse Ox 92 L 11/25/18 14:00 Intake & Output 11/24/18 11/25/18 11/25/18 18:59 06:59 18:59 Intake Total 569.633 910.3 726.4 Output Total 750 550 300 Balance -180.367 360.3 426.4 Weight 72.2 kg Intake: IV 240 240 160 Sodium Chloride 0.9% 1, 240 240 160 000 ml @ 20 mls/hr IV . Q24H [facility] Rx#:[id number] Intake, IV Titration 329.633 220.3 116.4 Amount Clevidipine Butyrate 25 49.933 mg In Empty Bag 1 bag @ 1 MG/HR 2 mls/hr IV .Q24H [facility] Rx#:[id number] Heparin Sod,Pork in 0.45% 250 NaCl 25,000 unit In 0.45 % NaCl 1 250ml.bag @ 12 UNITS/KG/HR 8.165 mls/hr IV .Q24H [facility] Rx#: [id number] Nitroglycerin-D5w Pmx 50 29.7 220.3 116.4 mg In Dextrose/Water 1 250ml.bag @ Titrate IV . Q0M [facility] Rx#:[id number] Oral 450 Tube Feeding 450 Output: Urine 750 550 300 Other: Voiding Method Urinal Urinal Urinal # Voids 1 - Exam General: non toxic, no distress, appears at stated age Derm: warm, dry Head: atraumatic, normocephalic, symmetric Eyes: EOMI, no lid lag, anicteric sclera Mouth: no lip lesion, mucus membranes moist Cardiovascular: S1S2 reg, no murmur, positive posterior tibial pulse bilateral, Lungs: Decreased breath sounds bilateral, no rhonchi, no rales , no accessory muscle use Abdominal: soft, nontender to palpation, no guarding, no appreciable organomegaly Ext: no gross muscle atrophy, no edema, no contractures Neuro: CN II-XI grossly intact, no focal neuro deficits Psych: Alert, oriented, flat affect - Labs CBC & Chem 7: 11/25/18 05:12 11/25/18 05:12 Labs: Abnormal Lab Results - Last 24 Hours (Table) 11/24/18 11/24/18 11/25/18 Range/Units 16:37 20:30 05:12 WBC 11.2 H (3.8-10.6) k/uL RBC 2.95 L (4.30-5.90) m/uL Hgb 7.7 L (13.0-17.5) gm/dL Hct 24.6 L (39.0-53.0) % RDW 17.1 H (11.5-15.5) % Neutrophils # 9.1 H (1.3-7.7) k/uL APTT (22.0-30.0) sec BUN (9-20) mg/dL Creatinine (0.66-1.25) mg/dL Glucose (74-99) mg/dL POC Glucose (mg/dL) 196 H 140 H (75-99) mg/dL ALT (21-72) U/L Total Protein (6.3-8.2) g/dL 11/25/18 11/25/18 11/25/18 Range/Units 05:12 05:12 07:03 WBC (3.8-10.6) k/uL RBC (4.30-5.90) m/uL Hgb (13.0-17.5) gm/dL Hct (39.0-53.0) % RDW (11.5-15.5) % Neutrophils # (1.3-7.7) k/uL APTT 48.7 H (22.0-30.0) sec BUN 40 H (9-20) mg/dL Creatinine 1.43 H (0.66-1.25) mg/dL Glucose 124 H (74-99) mg/dL POC Glucose (mg/dL) 136 H (75-99) mg/dL ALT 11 L (21-72) U/L Total Protein 6.0 L (6.3-8.2) g/dL 11/25/18 Range/Units 12:13 WBC (3.8-10.6) k/uL RBC (4.30-5.90) m/uL Hgb (13.0-17.5) gm/dL Hct (39.0-53.0) % RDW (11.5-15.5) % Neutrophils # (1.3-7.7) k/uL APTT (22.0-30.0) sec BUN (9-20) mg/dL Creatinine (0.66-1.25) mg/dL Glucose (74-99) mg/dL POC Glucose (mg/dL) 131 H (75-99) mg/dL ALT (21-72) U/L Total Protein (6.3-8.2) g/dL Assessment and Plan Assessment: NSTEMI with chest pain - ASA, heparin gtt, metoprolol, plavix, statin - plan is for cath once renal function stable - attempting to transition from nitro gtt to imdur - echo with inferior wall hypokanesis , preserved ejection fraction Cardiac arrest with ventricular fibrillation - potassium and magnesium levels are normal - tele - cardio recs appreciated - on heparin gtt with xarelto on hold for cath -Cardiac catheterization once renal function is stable Chronic kidney disease stage III, AIDEN resolved - baseline at 1.5 - avoid additional nephrotoxic agents - follow BMP - Resume home oral lasix in AM -Renal US- benign appearing renal cystic disease Chronic CHF EF 55% - lopressor - Not On WHIT inhibitor at baseline - Strict I's and O's - Daily weight P. A fib - metoprolol - xarelto on hold for possible cath Hypertensive urgency, improved -Continue with nitro drip is being weaned and patient transitioned to imdur , hydralazine increased ,norvasc, metoprolol -Follow blood pressures COPD without exacerbation - prn duonebrs Acute on chronic hypoxic respiratory failure, improved Pulmonary edema, resolved Chronic: Arthritis Chronic low back pain History of gastric ulcers DVT prophylaxis: heparin gtt Discussed with: patient, ICU nursing, Dr. Denson Anticipated discharge: 2-[address]: home A total of 35 minutes was spent on the care of this complex patient more than 50% of the time was spent in counseling and care coordination.
[2018-11-25] MEDS ORDERED: ISOSORBIDE MONONITRATE ER 30 MG TAB.ER.24H PO ONE (16:00)
[2018-11-25] MEDS: HEPARIN SOD,PORK IN 0.45% NACL 25,000 UNIT in 0.45% NACL 1 250ML.BAG IV SCH (16:46)
[2018-11-25] MEDS: PANTOPRAZOLE 40 MG TABLET PO SCH (16:48)
[2018-11-25 17:08] LABS: Glucose,Whole Blood 160 mg/dL (75-99)
[2018-11-25 20:18] LABS: Glucose,Whole Blood 172 mg/dL (75-99)
[2018-11-26 05:00] LABS: Anisocytosis Slight; HGB 7.8 gm/dL (13.0-17.5); Hypochromasia Moderate; MCH 26.6 pg (25.0-35.0); MCHC 31.3 g/dL (31.0-37.0); MCV 84.9 fL (80.0-100.0); Mean Platelet Volume 7.9; Platelet Count 170 k/uL (150-450); RBC 2.95 m/uL (4.30-5.90); RDW 16.8 % (11.5-15.5); WBC 10.4 k/uL (3.8-10.6)
[2018-11-26 05:26] LABS: Calcium 8.6 mg/dL (8.4-10.2); Potassium 4.4 mmol/L (3.5-5.1)
[2018-11-26] MEDS: HEPARIN SODIUM,PORCINE 5,000 UNIT/ML 1 ML VIAL IV PRN (05:44)
[2018-11-26 07:10] LABS: Glucose,Whole Blood 142 mg/dL (75-99)
[2018-11-26] MEDS: PANTOPRAZOLE 40 MG TABLET PO SCH ×2 (07:11→16:34)
[2018-11-26] MEDS: INSULIN ASPART (NovoLOG) 100 UNIT/ML VIAL SQ SCH ×4 (07:11→20:03)
[2018-11-26] MEDS: IPRATROPIUM-ALBUTEROL 3 ML NEB INHALATION SCH ×4 (07:22→19:58)
[2018-11-26] MEDS: METOPROLOL TARTRATE 50 MG TAB PO SCH (08:02)
[2018-11-26] MEDS: POTASSIUM CHLORIDE ER 20 MEQ TAB.ER PO SCH (08:02)
[2018-11-26] MEDS: ASPIRIN 325 MG TAB PO SCH (08:02)
[2018-11-26] MEDS: HYDROcodone/APAP 5-325MG 1 EACH TAB PO PRN ×2 (08:02→20:03)
[2018-11-26] MEDS: hydrALAZINE HCL 50 MG TAB PO SCH ×3 (08:03→21:25)
[2018-11-26] MEDS: amLODIPine 5 MG TAB PO SCH ×2 (08:03→20:03)
[2018-11-26] MEDS: ATORVASTATIN 40 MG TAB PO SCH (08:03)
[2018-11-26] MEDS: CLOPIDOGREL 75 MG TAB PO SCH (08:03)
[2018-11-26] MEDS: SODIUM CHLORIDE 0.9% 1,000 ML IV SCH (08:06)
[2018-11-26] MEDS ORDERED: ALBUTEROL NEBULIZED 2.5 MG/3 ML INHALATION PRN (08:16)
--- NOTE | 2018-11-26 08:23 | P.PN ---
Subjective Progress Note Date: 11/26/18 Principal diagnosis: dyspnea Patient is a 73-year-old male past medical history of atrial fibrillation, congestive heart failure with preserved ejection fraction of 55%, coronary artery disease with history of myocardial infarction and three-vessel bypass in 2006, hypertension, dyslipidemia, COPD, and chronic hypoxic respiratory failure on 4 L nasal cannula who presented to the ER via EMS for chest pain and shortness of breath. In the ER he underwent an extensive e valuation. Initially on arrival his pulse was 96 and blood pressure was 180/94. He was in acute respiratory distress and was subsequently placed on BiPAP therapy. Apparently bedside ultrasound was done in the ER consistent with pulmonary edema. He was started on a nitro drip. Approximately 30 minutes later he went into Ventricular fib and had loss of consciousness. He required defib 1 and he was given magnesium. Initial laboratory analysis showed an elevated white blood cell count at 13, hemoglobin of 10.4, creatinine of 1.5 which appears to be baseline, and glucose of 212. His potassium was normal at 4.4, magnesium slightly high at 2.4, and calcium was normal at 9.4. Initial BNP was elevated at 4530. Initial troponin was elevated at 0.070. Chest x-ray showed new basilar opacities consistent with multi focal pneumonia or atelectasis. He was given a dose of aspirin and Lasix. Arrangements were made for admission to the ICU. Cardiology and critical care were consulted. He was started on clevidipine gtt. he was attempted to be weaned off nitro and had recurrent chest pain and therefore nitro was restarted. He was also started on a heparin drip. Plan was for cardiac cath on 11/24. He has slight rise in creatinine on 11/23 likely secondary to forced diuresis. He was able to be weaned off BiPAP and was on his home oxygen. Creatinine continued to be elevated on 11/24 and therefore cardiac catheterization was delayed. His cr improved but the morning of 11/25 back to his baseline of 1.4. He was again having chest pain, also went into A fib, started back on Bipap and given morning medications and chest pain improved. EKG reviewed and no new ischemic changes. Patient seen and examined at bedside. Complaining of shortness of breath, again had elevated BP this morning. Denies chest pain, light headedness, dizziness, or nausea. Objective - Vital Signs Vital signs: Vital Signs Temp 97.9 F 11/26/18 04:00 Pulse 88 11/26/18 07:38 Resp 19 11/26/18 07:00 BP 150/89 11/26/18 07:00 Pulse Ox 96 11/26/18 07:00 Intake & Output 11/25/18 11/26/18 11/26/18 18:59 06:59 18:59 Intake Total 1052.579 672.338 260 Output Total 400 900 Balance 652.579 -227.662 260 Weight 70 kg Intake: IV 240 240 20 Sodium Chloride 0.9% 1, 240 240 20 000 ml @ 20 mls/hr IV . Q24H [facility] Rx#:[id number] Intake, IV Titration 362.579 132.338 Amount Heparin Sod,Pork in 0.45% 235.929 132.338 NaCl 25,000 unit In 0.45 % NaCl 1 250ml.bag @ 12 UNITS/KG/HR 8.165 mls/hr IV .Q24H [facility] Rx#: [id number] Nitroglycerin-D5w Pmx 50 126.65 mg In Dextrose/Water 1 250ml.bag @ Titrate IV . Q0M [facility] Rx#:[id number] Oral 450 300 240 Output: Urine 400 900 Other: Voiding Method Urinal - Exam General: non toxic, mild distress due to shortness of breath, appears at stated age Derm: warm, dry Head: atraumatic, normocephalic, symmetric Eyes: EOMI, no lid lag, anicteric sclera Mouth: no lip lesion, mucus membranes moist Cardiovascular: S1S2 reg, no murmur, positive posterior tibial pulse bilateral, Lungs: rhonchi bilateral bases, no accessory muscle use Abdominal: soft, nontender to palpation, no guarding, no appreciable organo megaly Ext: no gross muscle atrophy, no edema, no contractures Neuro: CN II-XI grossly intact, no focal neuro deficits Psych: Alert, oriented, flat affect - Labs CBC & Chem 7: 11/26/18 04:34 11/26/18 04:34 Labs: Abnormal Lab Results - Last 24 Hours (Table) 11/25/18 11/25/18 11/25/18 Range/Units 12:13 16:55 20:07 RBC (4.30-5.90) m/uL Hgb (13.0-17.5) gm/dL Hct (39.0-53.0) % RDW (11.5-15.5) % APTT (22.0-30.0) sec Chloride (98-107) mmol/L Carbon Dioxide (22-30) mmol/L BUN (9-20) mg/dL Creatinine (0.66-1.25) mg/dL Glucose (74-99) mg/dL POC Glucose (mg/dL) 131 H 160 H 172 H (75-99) mg/dL 11/26/18 11/26/18 11/26/18 Range/Units 04:34 04:34 04:34 RBC 2.95 L (4.30-5.90) m/uL Hgb 7.8 L (13.0-17.5) gm/dL Hct 25.0 L (39.0-53.0) % RDW 16.8 H (11.5-15.5) % APTT 41.0 H (22.0-30.0) sec Chloride 110 H (98-107) mmol/L Carbon Dioxide 19 L (22-30) mmol/L BUN 31 H (9-20) mg/dL Creatinine 1.40 H (0.66-1.25) mg/dL Glucose 151 H (74-99) mg/dL POC Glucose (mg/dL) (75-99) mg/dL 11/26/18 Range/Units 06:59 RBC (4.30-5.90) m/uL Hgb (13.0-17.5) gm/dL Hct (39.0-53.0) % RDW (11.5-15.5) % APTT (22.0-30.0) sec Chloride (98-107) mmol/L Carbon Dioxide (22-30) mmol/L BUN (9-20) mg/dL Creatinine (0.66-1.25) mg/dL Glucose (74-99) mg/dL POC Glucose (mg/dL) 142 H (75-99) mg/dL Assessment and Plan Assessment: NSTEMI with chest pain - ASA, heparin gtt, metoprolol, plavix, statin - plan is for cath once renal function stable - Imdur - echo with NEW inferior wall hypokanesis , preserved ejection fraction - if cath is unrevealing then would consider CTA chest to r/o PE. Patient currently covered with heparin gtt, would not order at this time as CAD appears more likely and would not want to cause dye exposure and worsen kidney function to delay cath further. Cardiac arrest with ventricular fibrillation - potassium and magnesium levels are normal - tele - cardio recs appreciated - on heparin gtt with xarelto on hold for cath - Cardiac catheterization once renal function is stable Chronic kidney disease stage III, AIDEN resolved - baseline at 1.5 - avoid additional nephrotoxic agents - follow BMP - Resume home oral lasix - Renal US- benign appearing renal cystic disease COPD without exacerbation - prn duonebrs - statu pulmicort as take symbicort at home - check CXR with increasing SOB - if continues consider steroids Chronic CHF EF 55% - lopressor - Not On WHIT inhibitor at baseline - Strict I's and O's - Daily weight P. A fib - metoprolol - xarelto on hold for possible cath Hypertensive urgency, improved -Increase hydralazine to TID, imdur , norvasc, metoprolol -Follow blood pressures Acute on chronic hypoxic respiratory failure - treatment as above - wean O2 as able Pulmonary edema, resolved Chronic: Arthritis Chronic low back pain History of gastric ulcers DVT prophylaxis: heparin gtt Discussed with: patient, ICU nursing Anticipated discharge: 2-[address]: home A total of 35 minutes was spent on the care of this complex patient more than 50% of the time was spent in counseling and care coordination.
[2018-11-26] MEDS: FUROSEMIDE 40 MG TAB PO SCH ×2 (08:55→16:34)
[2018-11-26] MEDS: LORazepam 0.5 MG TAB PO PRN ×2 (08:55→16:41)
[2018-11-26] MEDS ORDERED: ISOSORBIDE MONONITRATE ER 60 MG TAB.ER.24H PO SCH (09:00)
--- NOTE | 2018-11-26 09:03 | XR ---
EXAMINATION TYPE: XR chest 1V portable DATE OF EXAM: 11/26/2018 HISTORY: shortness of breath. REFERENCE: Previous study dated 11/25/2018. FINDINGS: There has been a midline sternotomy. The heart is mildly enlarged. The lungs are overinflat ed. There are small areas of bibasilar airspace disease similar to previous study. I suspect a small left. IMPRESSION: 1. COPD 2 BIBASILAR AIRSPACE DISEASE, WORSE ON THE LEFT THAN RIGHT. 3. I CANNOT EXCLUDE A SMALL LEFT.
[2018-11-26] MEDS: BUDESONIDE 1 MG/2 ML NEBU INHALATION SCH ×2 (09:49→19:58)
--- NOTE | 2018-11-26 11:38 | P.PN ---
Subjective Progress Note Date: 11/26/18 The patient is 73-year-old male who follows with Dr. Arcos as an outpatient, who has past medical history CAD status post stenting as well as CABG, severe PVD status post stenting, paroxysmal atrial fibrillation, hypertension, and dyslipidemia, who was admitted to the ICU after a witnessed cardiac arrest. Prior to his admission he had been experiencing chest discomfort, which was midsternal without radiation for 3 days. The chest discomfort was worse with exertion and associated with diaphoresis. Prior to coming to the emergency room he did have a syncopal episode, which is what prompted his arrival. In the emergency room, the patient had an episode of ventricular fibrillation/torsade, where he received a shock which returned him to sinus rhythm. He was then transferred to the ICU. During his ICU admission, he was placed on heparin and nitroglycerin drip. Due to the diuretics he received in the emergency room, his creatinine has trended up and his hemoglobin has been trending down. 11/25/18 Overnight the patient had an episode of shortness of breath, where he required more oxygen. He was subsequently placed on BiPAP. During this time he didn't go into atrial fibrillation, however he spontaneously converted. His blood pressure has also been elevated. On exam this morning, he has resting comfortably on BiPAP. He denies any significant shortness of breath and states he is feeling well. He also denied any chest discomfort. 11/26/18 He continued to have shortness of breath overnight, requiring BiPAP. This morning he was labored on exam. According to nursing staff he often gets anxious with increased shortness of breath when his blood pressures are elevated. He is well controlled for most the shift, however an hour or 2 before the next upcoming dose his systolics rise into the 170s. On exam: GENERAL: Well-appearing, well-nourished. On BiPAP. Mildly labored breathing. NECK: Supple without JVD or thyromegaly. LUNGS: Breath sounds clear to auscultation bilaterally. Respiration equal and mildly labored. No wheezes, rales or rhonchi. HEART: Regular rate and rhythm without murmurs, rubs or gallops. S1 and S2 heard. EXTREMITIES: Normal range of motion, no edema. No clubbing or cyanosis. Peripheral pulses intact and strong. Echocardiogram showed normal LV function with mild valvular abnormalities and moderate pulmonary hypertension. Inferior hypokinesis noted. Telemetry readings overnight unremarkable. No episodes of atrial fibrillation. Labs: WBC 11.2, hemoglobin 7.7, hematocrit 24.6, platelet 168, sodium 138, potassium 3.8, BUN 40, creatinine 1.43, AST 17, ALT 11 Assessment: #1 acute non-ST myocardial infarction #2 cardiac arrest with V. fib #3 paroxysmal atrial fibrillation #4 hypertension #5 dyslipidemia #6 PVD Plan: Increase hydralazine to 3 times a day. Increase metoprolol to 150 mg twice a day. Consider left heart cath if kidney function returns to baseline. Objective - Vital Signs Vital signs: Vital Signs Temp 98.4 F 11/26/18 08:00 Pulse 68 11/26/18 11:26 Resp 17 11/26/18 10:00 BP 128/61 11/26/18 10:00 Pulse Ox 93 L 11/26/18 10:00 Intake & Output 11/25/18 11/26/18 11/26/18 18:59 06:59 18:59 Intake Total 1052.579 672.338 320 Output Total 400 900 50 Balance 652.579 -227.662 270 Weight 70 kg Intake: IV 240 240 80 Sodium Chloride 0.9% 1, 240 240 80 000 ml @ 20 mls/hr IV . Q24H [facility] Rx#:[id number] Intake, IV Titration 362.579 132.338 Amount Heparin Sod,Pork in 0.45% 235.929 132.338 NaCl 25,000 unit In 0.45 % NaCl 1 250ml.bag @ 12 UNITS/KG/HR 8.165 mls/hr IV .Q24H [facility] Rx#: [id number] Nitroglycerin-D5w Pmx 50 126.65 mg In Dextrose/Water 1 250ml.bag @ Titrate IV . Q0M [facility] Rx#:[id number] Oral 450 300 240 Output: Urine 400 900 50 Other: Voiding Method Urinal Urinal - Labs CBC & Chem 7: 11/26/18 04:34 11/26/18 04:34 Labs: Abnormal Lab Results - Last 24 Hours (Table) 11/25/18 11/25/18 11/25/18 Range/Units 12:13 16:55 20:07 RBC (4.30-5.90) m/uL Hgb (13.0-17.5) gm/dL Hct (39.0-53.0) % RDW (11.5-15.5) % APTT (22.0-30.0) sec Chloride (98-107) mmol/L Carbon Dioxide (22-30) mmol/L BUN (9-20) mg/dL Creatinine (0.66-1.25) mg/dL Glucose (74-99) mg/dL POC Glucose (mg/dL) 131 H 160 H 172 H (75-99) mg/dL 11/26/18 11/26/18 11/26/18 Range/Units 04:34 04:34 04:34 RBC 2.95 L (4.30-5.90) m/uL Hgb 7.8 L (13.0-17.5) gm/dL Hct 25.0 L (39.0-53.0) % RDW 16.8 H (11.5-15.5) % APTT 41.0 H (22.0-30.0) sec Chloride 110 H (98-107) mmol/L Carbon Dioxide 19 L (22-30) mmol/L BUN 31 H (9-20) mg/dL Creatinine 1.40 H (0.66-1.25) mg/dL Glucose 151 H (74-99) mg/dL POC Glucose (mg/dL) (75-99) mg/dL 11/26/18 Range/Units 06:59 RBC (4.30-5.90) m/uL Hgb (13.0-17.5) gm/dL Hct (39.0-53.0) % RDW (11.5-15.5) % APTT (22.0-30.0) sec Chloride (98-107) mmol/L Carbon Dioxide (22-30) mmol/L BUN (9-20) mg/dL Creatinine (0.66-1.25) mg/dL Glucose (74-99) mg/dL POC Glucose (mg/dL) 142 H (75-99) mg/dL
[2018-11-26 11:46] LABS: Glucose,Whole Blood 107 mg/dL (75-99)
--- NOTE | 2018-11-26 11:54 | P.PN ---
Subjective Progress Note Date: 11/26/18 This is a 73-year-old male patient with extensive cardiac history including coronary artery disease with previous bypass surgery, chronic A. fib, diastolic heart failure, hypertension and hyperlipidemia and COPD with chronic hypoxic respiratory failure maintained on oxygen at 4 L per minute nasal cannula with an FEV1 of 63% of predicted, diffusion capacity of 61% predicted and total lung capacity of 99% of predicted. The patient's developed an acute shortness of breath. He felt some chest discomfort subsequently was unable to breathe. He asked to be moved to the hospital. The patient was brought via EMS. The patient admitted that he was progressively getting more short of breath and he had difficulties and laying down flat. He was quite tachypneic at a time of admission and the blood pressure was also elevated. Chest x-ray showed cardiomegaly and pulmonary edema. The initial blood pressure was 180/94 in the patient's respiratory rate was 24. Based on all this, the patient was given diuretics. The patient was started on a nitroglycerin drip. The patient was placed on a BiPAP. 30 minutes while being in the emergency, the patient became acutely unresponsive. front desk monitor showed polymorphic ventricular tachycardia consistent with torsade de pointes. Based on this, the patient wound received an immediate cardioversion with 200 J biphasic and the patient was also given 2 g of magnesium 1 g of calcium. The cardioversion was successful. EKG showed no significant abnormalities or prolongation of the QT. The patient is currently in normal sinus rhythm with PACs and the patient has a 70 her conduction delay, probably a left bundle branch block pattern. The first set of cardiac enzymes showed a troponin of 0.07. BNP was 4530. Creatinine is at 1.5 with a BUN of 36. The patient got transferred to the intensive care unit and while on the BiPAP. The patient is on a BiPAP pressure of 14/7 cm of water with an FiO2 of 40%. Is receiving Lasix 40 mg IV push every 12 hours. He is on long-term articulation with Xarelto 2.5 mg twice a day. He was started on clevidipine drip for tighter blood pressure control. He was also restarted back on hydralazine and metoprolol. Nitroglycerin drip is also running at 5 g per minute. No chest pain. No back pain. No arm pain. No neck pain. No further episodes of arrhythmias at this point in time. Echocardiogram is to follow. Cardiology consultation is to follow. On 11/23/2018 I'm seeing this patient for a follow-up. This morning the patient is feeling better and he seems to much more comfortable compared to yesterday. The patient was taken off the BiPAP which was set at a pressure of 14/7 cm of water and currently is on 40 of oxygen by nasal cannula which is very close to his baseline. He is free of any chest pains no nitroglycerin drip which is running at 60 g per minute. His BP is under better control while being on Cleviprex at the rate of 3 mg an hour. The patient diuresed well over the past 12 hours while being on IV Lasix. Creatinine is up to 1.9 and the patient will be taken off the diuretics. No cough or sputum production. No chest pain this morning. His cardiac rhythm is sinus and the patient remains on IV heparin. Cardiology is on the case and the plan is to proceed with a cardiac catheterization within the next 24-48 hours. Otherwise, no other significant events on this patient overnight. A repeat echo was ordered and the results are still pending for now. On 11/24/2018 I'm seeing this patient for a follow-up. He is quite comfortable this morning her 40s of oxygen nasal cannula. Overnight he had to be placed back on a BiPAP and this morning his back off. His son nitroglycerin drip which has been cut down to 40 g. He is also on Cleviprex drip which is running at 2 mg an hour. Blood pressure is still fluctuating. Creatinine is up to 1.9. History of any chest pain. No nausea. No vomiting. No abdominal pain. He has remained hemodynamically stable. Cardiac rhythm is sinus for now. He remains on IV heparin. Ultimately plan is to proceed with a cardiac catheterization. This was not done today as the patient's creatinine has been up to 1.9. We'll monitor the renal function will continue to follow. Repeat echo showed a preserved LV function with an ejection fraction of 50-55%. There is inferior hypokinesis, mild MR, moderate pulmonary hypertension with a PA pressure 46. On 11/25/2018, patient is being seen for a follow-up. The night was uneventful. Nevertheless this morning the patient became acutely shortness of breath and he developed chest pain. His still in nitroglycerin drip at 40 mics. He is also on IV heparin. He developed atrial fibrillation. He also became hypertensive. Note that the Cleviprex drip has been discontinued yesterday. Immediately was placed on a BiPAP at a pressure of 14/7 cm of water. He seems to much more rested for now. No nausea. No vomiting. No aspiration. Chest x-ray from this morning showed some cardiomegaly without signs of any pulmonary edema or failure. The hemoglobin today is at 7.7 with a white cell count of 11.2. Creatinine is improved and found to 1.43. He remains on aspirin. He remains on Plavix. He remains on beta blockers. On 11/26/2018 I'm seeing the patient for a follow-up. This morning the patient utilizes BiPAP again. His breathing is somewhat labored. As stated earlier the patient is having on and off some shortness of breath. Blood pressure remains somewhat elevated. The patient received all of his antihypertensive medications today. Is a bit anxious. Denies having any chest pain. Rhythm is sinus. Producing adequate amount of urine output. Creatinine is stable at 1.4. Awaiting final decision from cardiology regarding the need for cardiac catheterization. No headache. No altered mentation. No chest pain for this morning. Objective - Vital Signs Vital signs: Vital Signs Temp 98.4 F 11/26/18 08:00 Pulse 68 11/26/18 11:26 Resp 17 11/26/18 10:00 BP 128/61 11/26/18 10:00 Pulse Ox 93 L 11/26/18 10:00 Intake & Output 11/25/18 11/26/18 11/26/18 18:59 06:59 18:59 Intake Total 1052.579 672.338 320 Output Total 400 900 50 Balance 652.579 -227.662 270 Weight 70 kg Intake: IV 240 240 80 Sodium Chloride 0.9% 1, 240 240 80 000 ml @ 20 mls/hr IV . Q24H [facility] Rx#:[id number] Intake, IV Titration 362.579 132.338 Amount Heparin Sod,Pork in 0.45% 235.929 132.338 NaCl 25,000 unit In 0.45 % NaCl 1 250ml.bag @ 12 UNITS/KG/HR 8.165 mls/hr IV .Q24H [facility] Rx#: [id number] Nitroglycerin-D5w Pmx 50 126.65 mg In Dextrose/Water 1 250ml.bag @ Titrate IV . Q0M [facility] Rx#:[id number] Oral 450 300 240 Output: Urine 400 900 50 Other: Voiding Method Urinal Urinal - Exam GENERAL EXAM: 72-year-old white male, cachectic, currently on BiPAP for respiratory distress HEAD: Normocephalic/atraumatic. EYES: Normal reaction of pupils, equal size. Conjunctiva pink, sclera white. NOSE: Clear with pink turbinates. THROAT: No erythema or exudates. NECK: No masses, no JVD, no thyroid enlargement, no adenopathy. CHEST: No chest wall deformity. Symmetrical expansion. LUNGS: Equal air entry with minimal crackles at the lung bases and the patient is prolongation of expiratory phase of breathing and scattered expiratory wheezes heard throughout the lung randolph. Air entry overall is diminished. CVS: Irregular rate and rhythm, consistent with atrial fibrillation., normal S1 and S2, no gallops, no murmurs, no rubs ABDOMEN: Soft, nontender. No hepatosplenomegaly, normal bowel sounds, no guarding or rigidity. EXTREMITIES: No clubbing, no cyanosis, 1+ pulses and upper and lower extremities. No edema MUSCULOSKELETAL: Muscle strength and tone normal. SPINE: No scoliosis or deformity SKIN: No rashes CENTRAL NERVOUS SYSTEM: Sedated. No focal deficits, tone is normal in all 4 e xtremities. PSYCHIATRIC: Calm, alert and oriented. - Labs CBC & Chem 7: 11/26/18 04:34 11/26/18 04:34 Labs: Abnormal Lab Results - Last 24 Hours (Table) 11/25/18 11/25/18 11/25/18 Range/Units 12:13 16:55 20:07 RBC (4.30-5.90) m/uL Hgb (13.0-17.5) gm/dL Hct (39.0-53.0) % RDW (11.5-15.5) % APTT (22.0-30.0) sec Chloride (98-107) mmol/L Carbon Dioxide (22-30) mmol/L BUN (9-20) mg/dL Creatinine (0.66-1.25) mg/dL Glucose (74-99) mg/dL POC Glucose (mg/dL) 131 H 160 H 172 H (75-99) mg/dL 11/26/18 11/26/18 11/26/18 Range/Units 04:34 04:34 04:34 RBC 2.95 L (4.30-5.90) m/uL Hgb 7.8 L (13.0-17.5) gm/dL Hct 25.0 L (39.0-53.0) % RDW 16.8 H (11.5-15.5) % APTT 41.0 H (22.0-30.0) sec Chloride 110 H (98-107) mmol/L Carbon Dioxide 19 L (22-30) mmol/L BUN 31 H (9-20) mg/dL Creatinine 1.40 H (0.66-1.25) mg/dL Glucose 151 H (74-99) mg/dL POC Glucose (mg/dL) (75-99) mg/dL 11/26/18 11/26/18 Range/Units 06:59 11:35 RBC (4.30-5.90) m/uL Hgb (13.0-17.5) gm/dL Hct (39.0-53.0) % RDW (11.5-15.5) % APTT (22.0-30.0) sec Chloride (98-107) mmol/L Carbon Dioxide (22-30) mmol/L BUN (9-20) mg/dL Creatinine (0.66-1.25) mg/dL Glucose (74-99) mg/dL POC Glucose (mg/dL) 142 H 107 H (75-99) mg/dL Assessment and Plan Plan: 1 acute hypoxic respiratory failure secondary to acute pulmonary edema, currently the patient is off the BiPAP and the patient is back on 4 L of oxygen by nasal cannula. Patient is still requiring on and off BiPAP use for support. This morning he acutely became short of breath and developed chest pain and he was placed on BiPAP for breathing. The patient probably is requiring BiPAP on and off and increased shortness of breath probably related to underlying angina/or anginal equivalents 2 acute hypertensive emergency, currently off the Cleviprex drip 3 acute torsade de pointes, polymorphic V. tach, post successful cardioversion with 200 J 4 chronic atrial fibrillation with long-term articulation with Xarelto him a cur rent rhythm is sinus and the patient was taken off the Xarelto and placed on IV heparin. The patient is still having episodes of atrial fibrillation with rapid ventricular response alternating with a normal sinus rhythm. The patient is on IV heparin. The patient on beta blockers with metoprolol 100 mg by mouth twice a day. 5 coronary artery disease with previous bypass surgery and previous coronary intervention and stenting. The patient comes in for with acute coronary syndrome and unstable angina. The patient has some nonspecific EKG changes and there is a limited troponin leak. A setting of an acute polymorphic V. tach, the patient would likely need further investigation including a cardiac catheterization later stage. The patient is still having on and off chest pain. Cardiac catheter will be needed. 7 peripheral vascular disease with previous history of bilateral stenting of the lower extremities 8 chronic stage III kidney disease him a and there is a component of acute kidney injury with a creatinine is up to 1.9, likely secondary to diuresis. Diuretics have been stopped in the creatinine is improving and the creatinine is down to 1.4 and a creatinine remains stable for the time being. 9 hyperlipidemia 10 chronic anemia, chronic anemia 11 acid reflux 12 osteoarthritis 13 previous history of right-sided pleural effusion postthoracentesis and the fluid cytology was negative for malignancy 14 hiatal hernia 15 previous history of GI bleed and the patient had a colonoscopy and EGD back in July 2017 that showed some mild gastritis and colonic polyps. Currently the patient and to coagulation with IV heparin 16 hemorrhoids 17 chronic back pain 18 migraine 19 previous history of osteoarthritis 20 hypertension, poorly controlled 21 COPD with an FEV1 of 63% of predicted at baseline Plan Continue BiPAP for now for respiratory support. Continue metoprolol. Continue aspirin. Continue Plavix. Continue IV heparin. Continue IV heparin. Creati nine is stable at 1.4. Were still requiring BiPAP on and off. Based on overall clinical picture, I think is very reasonable to consider a cardiac catheterization on this patient. He'll be kept in ICU for now.
[2018-11-26] MEDS: CLEVIDIPINE BUTYRATE 25 MG in EMPTY BAG 1 BAG IV SCH (12:06)
[2018-11-26] MEDS ORDERED: hydrALAZINE HCL 50 MG TAB PO SCH ×2 (16:00→21:00)
[2018-11-26] MEDS: HEPARIN SOD,PORK IN 0.45% NACL 25,000 UNIT in 0.45% NACL 1 250ML.BAG IV SCH (16:34)
[2018-11-26 16:58] LABS: Glucose,Whole Blood 156 mg/dL (75-99)
[2018-11-26 17:58] LABS: Anisocytosis Slight; Basophils % (A) 0 %; Eosinophils # (A) 0.1 k/uL (0-0.7); Eosinophils % (A) 1 %; HCT 26.6 % (39.0-53.0); HGB 8.3 gm/dL (13.0-17.5); Hypochromasia Moderate; Lymphocytes # (A) 1.3 k/uL (1.0-4.8); Lymphocytes % (A) 14 %; MCH 26.2 pg (25.0-35.0); MCHC 31.4 g/dL (31.0-37.0); MCV 83.5 fL (80.0-100.0); Mean Platelet Volume 7.7; Monocytes # (A) 0.6 k/uL (0-1.0); Monocytes % (A) 6 %; Neutrophils # (A) 7.4 k/uL (1.3-7.7); Neutrophils % (A) 77 %; Platelet Count 216 k/uL (150-450); RBC 3.18 m/uL (4.30-5.90); RDW 17.1 % (11.5-15.5); WBC 9.6 k/uL (3.8-10.6)
[2018-11-26 20:08] LABS: Glucose,Whole Blood 178 mg/dL (75-99)
[2018-11-26] MEDS ORDERED: METOPROLOL TARTRATE 50 MG TAB PO SCH (21:00)
[2018-11-26 21:11] LABS: Glucose,Whole Blood 158 mg/dL (75-99)
[2018-11-27 05:16] LABS: Anisocytosis Slight; HCT 25.6 % (39.0-53.0); HGB 7.9 gm/dL (13.0-17.5); Hypochromasia Moderate; MCH 25.5 pg (25.0-35.0); MCHC 30.7 g/dL (31.0-37.0); MCV 83.1 fL (80.0-100.0); Mean Platelet Volume 7.4; Platelet Count 215 k/uL (150-450); RBC 3.08 m/uL (4.30-5.90); RDW 16.7 % (11.5-15.5); WBC 8.1 k/uL (3.8-10.6)
[2018-11-27 05:57] LABS: Calcium 8.7 mg/dL (8.4-10.2); Magnesium 2.4 mg/dL (1.6-2.3); Potassium 4.1 mmol/L (3.5-5.1)
[2018-11-27] MEDS: HYDROcodone/APAP 5-325MG 1 EACH TAB PO PRN ×2 (06:32→15:30)
[2018-11-27] MEDS: PANTOPRAZOLE 40 MG TABLET PO SCH ×2 (06:33→18:23)
[2018-11-27 06:49] LABS: Glucose,Whole Blood 133 mg/dL (75-99)
[2018-11-27] MEDS: INSULIN ASPART (NovoLOG) 100 UNIT/ML VIAL SQ SCH ×2 (06:50→11:31)
--- NOTE | 2018-11-27 07:10 | XR ---
EXAMINATION TYPE: XR chest 1V portable DATE OF EXAM: 11/27/2018 Comparison: 11/26/2018 Clinical History: 73-year-old male COPD, CHF Findings: Median sternotomy wires and post-CABG clips in the mediastinum. Heart upper limits of normal in size. Hyperinflation with relative upper lung lucencies and mild diffuse interstitial prominence slightly increased from prior. Nodular density in the left perihilar region likely represents a prominent vess el on end. There is trace blunting of the costophrenic angles. Impression: Correlate for COPD with superimposed mild CHF, slightly worsened from prior. Trace effusions.
[2018-11-27] MEDS: BUDESONIDE 1 MG/2 ML NEBU INHALATION SCH ×2 (07:47→19:25)
[2018-11-27] MEDS: IPRATROPIUM-ALBUTEROL 3 ML NEB INHALATION SCH ×4 (07:47→19:25)
--- NOTE | 2018-11-27 08:24 | PN ---
PROGRESS NOTE Mr. Duncan is a 73-year-old male with a history of coronary artery disease, status post coronary artery bypass grafting, history of peripheral vascular disease, prior history of chronic tobacco use, history of paroxysmal atrial fibrillation who presented to the hospital with symptoms of dyspnea and chest discomfort. He had episode of atrial fibrillation as well as ventricular arrhythmia, had mild troponin elevation. He is feeling well this morning. He denies any symptoms of chest discomfort. He is in atrial fibrillation at this time. He denies any dizziness. No palpitation. He denies any nausea. He had evidence of renal function abnormalities that is stabilizing, but he is more anemic. His echocardiogram on presentation revealed ejection fraction of 50% to 55%. He continues to be on Lopressor 150 mg twice a day, hydralazine 100 mg 3 times a day, Imdur 60 mg daily, Lasix 40 mg twice a day, aspirin once a day, Plavix 75 mg daily and continues to be on IV heparin. PHYSICAL EXAMINATION: Blood pressure running in the 140s with the heart rate in the 70s. LUNGS: With mild decrease in breath sounds at the bases, no wheezes. HEART: Irregular, irregular. S1, S2. No S3 with systolic murmur, ejection type. No diastolic murmur, no rub. ABDOMEN: Soft, nontender. Positive bowel sounds. No organomegaly. EXTREMITIES: No edema. LAB DATA: Lab data revealed BUN and creatinine 30 and 1.54. Hemoglobin 7.9. His magnesium is 2.4. IMPRESSION: 1. Evidence of ventricular fibrillation on presentation with mild troponin elevation consistent with non ST-segment elevation myocardial infarction in a patient with known history of coronary artery disease, status post coronary artery bypass grafting where he received VILLALBA to LAD, saphenous vein graft to circumflex and to the right coronary artery in 2006. 2. History of chronic obstructive lung disease with prior history of chronic tobacco use. 3. Paroxysmal atrial fibrillation. 4. Renal failure. 5. Anemia. RECOMMENDATION: I will continue on the IV heparin at this time. I will adjust his oral medication. We will follow his renal function and hemoglobin. If they are stable, then I would recommend to proceed with coronary angiography in the next 24 to 48 hours. Depending on his progress, further recommendation will be made. Those findings were discussed with the patient and he is in full understanding and agreement. MMODL / IJN: [id number] /
[2018-11-27] MEDS: hydrALAZINE HCL 50 MG TAB PO SCH ×3 (08:47→22:07)
[2018-11-27] MEDS: amLODIPine 5 MG TAB PO SCH ×2 (08:48→20:44)
[2018-11-27] MEDS: ATORVASTATIN 40 MG TAB PO SCH (08:49)
[2018-11-27] MEDS: CLOPIDOGREL 75 MG TAB PO SCH (08:49)
[2018-11-27] MEDS: METOPROLOL TARTRATE 50 MG TAB PO SCH ×2 (08:50→20:44)
[2018-11-27] MEDS: ISOSORBIDE MONONITRATE ER 60 MG TAB.ER.24H PO SCH (08:52)
[2018-11-27] MEDS ORDERED: ASPIRIN 81 MG PO SCH (09:00)
[2018-11-27] MEDS: SODIUM CHLORIDE 0.9% 1,000 ML IV SCH (11:01)
[2018-11-27] MEDS: POTASSIUM CHLORIDE ER 20 MEQ TAB.ER PO SCH (11:18)
[2018-11-27] MEDS: FUROSEMIDE 40 MG TAB PO SCH ×2 (11:18→15:28)
[2018-11-27] MEDS: HEPARIN SOD,PORK IN 0.45% NACL 25,000 UNIT in 0.45% NACL 1 250ML.BAG IV SCH (11:20)
[2018-11-27 11:39] LABS: Glucose,Whole Blood 115 mg/dL (75-99)
--- NOTE | 2018-11-27 12:23 | P.PN ---
Subjective Progress Note Date: 11/27/18 Principal diagnosis: Acute torsade de pointes, and acute pulmonary edema This is a 73-year-old male patient with extensive cardiac history including coronary artery disease with previous bypass surgery, chronic A. fib, diastolic heart failure, hypertension and hyperlipidemia and COPD with chronic hypoxic respiratory failure maintained on oxygen at 4 L per minute nasal cannula with an FEV1 of 63% of predicted, diffusion capacity of 61% predicted and total lung capacity of 99% of predicted. The patient's developed an acute shortness of breath. He felt some chest discomfort subsequently was unable to breathe. He asked to be moved to the hospital. The patient was brought via EMS. The patient admitted that he was progressively getting more short of breath and he had difficulties and laying down flat. He was quite tachypneic at a time of admission and the blood pressure was also elevated. Chest x-ray showed cardiomegaly and pulmonary edema. The initial blood pressure was 180/94 in the patient's respiratory rate was 24. Based on all this, the patient was given diuretics. The patient was started on a nitroglycerin drip. The patient was placed on a BiPAP. 30 minutes while being in the emergency, the patient became acutely unresponsive. office professionals showed polymorphic ventricular tachycardia consistent with torsade de pointes. Based on this, the patient wound received an immediate cardioversion with 200 J biphasic and the patient was also given 2 g of magnesium 1 g of calcium. The cardioversion was successful. EKG showed no significant abnormalities or prolongation of the QT. The patient is currently in normal sinus rhythm with PACs and the patient has a 70 her conduction delay, probably a left bundle branch block pattern. The first set of cardiac enzymes showed a troponin of 0.07. BNP was 4530. Creatinine is at 1.5 with a BUN of 36. The patient got transferred to the intensive care unit and while on the BiPAP. The patient is on a BiPAP pressure of 14/7 cm of water with an FiO2 of 40%. Is receiving Lasix 40 mg IV push every 12 hours. He is on long-term articulation with Xarelto 2.5 mg twice a day. He was started on clevidipine drip for tighter blood pressure control. He was also restarted back on hydralazine and metoprolol. Nitroglycerin drip is also running at 5 g per minute. No chest pain. No back pain. No arm pain. No neck pain. No further episodes of arrhythmias at this point in time. Echocardiogram is to follow. Cardiology consultation is to follow. On 11/23/2018 I'm seeing this patient for a follow-up. This morning the patient is feeling better and he seems to much more comfortable compared to yesterday. The patient was taken off the BiPAP which was set at a pressure of 14/7 cm of water and currently is on 40 of oxygen by nasal cannula which is very close to his baseline. He is free of any chest pains no nitroglycerin drip which is running at 60 g per minute. His BP is under better control while being on Cleviprex at the rate of 3 mg an hour. The patient diuresed well over the past 12 hours while being on IV Lasix. Creatinine is up to 1.9 and the patient will be taken off the diuretics. No cough or sputum production. No chest pain this morning. His cardiac rhythm is sinus and the patient remains on IV heparin. Cardiology is on the case and the plan is to proceed with a cardiac catheterization within the next 24-48 hours. Otherwise, no other significant events on this patient overnight. A repeat echo was ordered and the results are still pending for now. On 11/24/2018 I'm seeing this patient for a follow-up. He is quite comfortable this morning her 40s of oxygen nasal cannula. Overnight he had to be placed back on a BiPAP and this morning his back off. His son nitroglycerin drip which has been cut down to 40 g. He is also on Cleviprex drip which is running at 2 mg an hour. Blood pressure is still fluctuating. Creatinine is up to 1.9. History of any chest pain. No nausea. No vomiting. No abdominal pain. He has remained hemodynamically stable. Cardiac rhythm is sinus for now. He remains on IV heparin. Ultimately plan is to proceed with a cardiac catheterization. This was not done today as the patient's creatinine has been up to 1.9. We'll monitor the renal function will continue to follow. Repeat echo showed a preserved LV function with an ejection fraction of 50-55%. There is inferior hypokinesis, mild MR, moderate pulmonary hypertension with a PA pressure 46. On 11/25/2018, patient is being seen for a follow-up. The night was uneventful. Nevertheless this morning the patient became acutely shortness of breath and he developed chest pain. His still in nitroglycerin drip at 40 mics. He is also on IV heparin. He developed atrial fibrillation. He also became hypertensive. Note that the Cleviprex drip has been discontinued yesterday. Immediately was placed on a BiPAP at a pressure of 14/7 cm of water. He seems to much more rested for now. No nausea. No vomiting. No aspiration. Chest x-ray from this morning showed some cardiomegaly without signs of any pulmonary edema or failure. The hemoglobin today is at 7.7 with a white cell count of 11.2. Creatinine is improved and found to 1.43. He remains on aspirin. He remains on Plavix. He remains on beta blockers. On 11/26/2018 I'm seeing the patient for a follow-up. This morning the patient utilizes BiPAP again. His breathing is somewhat labored. As stated earlier the patient is having on and off some shortness of breath. Blood pressure remains somewhat elevated. The patient received all of his antihypertensive medications today. Is a bit anxious. Denies having any chest pain. Rhythm is sinus. Producing adequate amount of urine output. Creatinine is stable at 1.4. Awaiting final decision from cardiology regarding the need for cardiac catheterization. No headache. No altered mentation. No chest pain for this morning. Reevaluated today, patient remains in the ICU, using nasal cannula, the BiPAP is at bedside. Patient is feeling a bit better, chest x-ray is showing interstitial edema, patient had his Lasix on hold earlier today, and he is scheduled to undergo cardiac catheterization. No fever no chills no hemoptysis no chest pain. Labs were reviewed, BUN is 30 creatinine is 1.54 which is close to his baseline. Objective - Vital Signs Vital signs: Vital Signs Temp 98.3 F 11/27/18 08:00 Pulse 67 11/27/18 11:14 Resp 20 11/27/18 11:00 BP 151/63 11/27/18 11:00 Pulse Ox 95 11/27/18 11:00 Intake & Output 11/26/18 11/27/18 11/27/18 18:59 06:59 18:59 Intake Total 853.662 897 347.074 Output Total 1150 1825 450 Balance -296.338 -928 -102.926 Weight 69 kg Intake: IV 260 240 80 Sodium Chloride 0.9% 1, 260 240 80 000 ml @ 20 mls/hr IV . Q24H [facility] Rx#:[id number] Intake, IV Titration 117.662 237.074 Amount Heparin Sod,Pork in 0.45% 117.662 217.074 NaCl 25,000 unit In 0.45 % NaCl 1 250ml.bag @ 12 UNITS/KG/HR 8.165 mls/hr IV .Q24H [facility] Rx#: [id number] Sodium Chloride 0.9% 1, 20 000 ml @ 20 mls/hr IV . Q24H [facility] Rx#:[id number] Oral 476 537 30 Blood Product 120 Output: Urine 1150 1825 450 Other: Voiding Method Urinal Urinal Urinal - Exam Physical Exam: Revealed a 73-year-old white male, pleasant, in no distress. Head: Atraumatic, normocephalic. HEENT:[Neck is supple.] [No neck masses.] [No thyromegaly.] [No JVD.] PERRLA, EOMI, no icterus. Moist mucous membranes. Chest: [Fine crackles at the bases, no rhonchi no wheezes..] Cardiac Exam: [Normal S1 and S2, no S3 gallop, 2/6 systolic murmur thought the precordium. Abdomen: [Soft, nontender, no megaly, no rebound, no guarding, normal bowel sounds.] Extremities: [No clubbing, trace of bipedal edema,no cyanosis.] Neurological Exam: [No focal neurologic deficit.] Alert and oriented 3. Psychiatric: Normal mood, flat affect and normal mental status examination. - Labs CBC & Chem 7: 11/27/18 05:03 11/27/18 05:03 Labs: Abnormal Lab Results - Last 24 Hours (Table) 11/26/18 11/26/18 11/26/18 Range/Units 11:24 16:47 17:32 RBC 3.18 L (4.30-5.90) m/uL Hgb 8.3 L (13.0-17.5) gm/dL Hct 26.6 L (39.0-53.0) % MCHC (31.0-37.0) g/dL RDW 17.1 H (11.5-15.5) % APTT 63.5 H (22.0-30.0) sec BUN (9-20) mg/dL Creatinine (0.66-1.25) mg/dL Glucose (74-99) mg/dL POC Glucose (mg/dL) 156 H (75-99) mg/dL Magnesium (1.6-2.3) mg/dL 11/26/18 11/26/18 11/27/18 Range/Units 19:56 21:00 05:03 RBC 3.08 L (4.30-5.90) m/uL Hgb 7.9 L (13.0-17.5) gm/dL Hct 25.6 L (39.0-53.0) % MCHC 30.7 L (31.0-37.0) g/dL RDW 16.7 H (11.5-15.5) % APTT (22.0-30.0) sec BUN (9-20) mg/dL Creatinine (0.66-1.25) mg/dL Glucose (74-99) mg/dL POC Glucose (mg/dL) 178 H 158 H (75-99) mg/dL Magnesium (1.6-2.3) mg/dL 11/27/18 11/27/18 11/27/18 Range/Units 05:03 05:03 06:37 RBC (4.30-5.90) m/uL Hgb (13.0-17.5) gm/dL Hct (39.0-53.0) % MCHC (31.0-37.0) g/dL RDW (11.5-15.5) % APTT 61.6 H (22.0-30.0) sec BUN 30 H (9-20) mg/dL Creatinine 1.54 H (0.66-1.25) mg/dL Glucose 114 H (74-99) mg/dL POC Glucose (mg/dL) 133 H (75-99) mg/dL Magnesium 2.4 H (1.6-2.3) mg/dL 11/27/18 Range/Units 11:27 RBC (4.30-5.90) m/uL Hgb (13.0-17.5) gm/dL Hct (39.0-53.0) % MCHC (31.0-37.0) g/dL RDW (11.5-15.5) % APTT (22.0-30.0) sec BUN (9-20) mg/dL Creatinine (0.66-1.25) mg/dL Glucose (74-99) mg/dL POC Glucose (mg/dL) 115 H (75-99) mg/dL Magnesium (1.6-2.3) mg/dL Assessment and Plan Assessment: Impression: 1 acute hypoxic respiratory failure secondary to pulmonary edema, diastolic congestive heart failure, and underlying COPD. 2 acute hypertensive emergency, resolved 3 acute torsade, polymorphic ventricular tachycardia and successful cardioversion 4 chronic atrial fibrillation 5 chronic anemia 6 moderate severe COPD 7 chronic chronic kidney disease stage III 8 degenerative joint disease 9 chronic back pain 10 degenerative joint disease Recommendation: Continue present treatment plan, continue diuretics, bronchodilators, agree with cardiac catheterization which is planned and scheduled to be done today. In the meantime continue IV heparin, continue aspirin, continue metoprolol, will follow while in the ICU. Patient may benefit from gentle diuresis after his cardiac catheterization. Time with Patient: Less than 30
[2018-11-27] MEDS: CLEVIDIPINE BUTYRATE 25 MG in EMPTY BAG 1 BAG IV SCH (12:36)
--- NOTE | 2018-11-27 14:06 | P.PN ---
Subjective Progress Note Date: 11/27/18 Principal diagnosis: NSTEMI, cardiac arrest Patient was seen and examined. No acute events overnight. Patient with no complaints today. He denies any chest pain, shortness of breath or palpitations. No nausea or vomiting. No fever or chills. Objective - Vital Signs Vital signs: Vital Signs Temp 98.0 F 11/27/18 12:00 Pulse 87 11/27/18 13:00 Resp 14 11/27/18 13:00 BP 152/67 11/27/18 13:00 Pulse Ox 93 L 11/27/18 13:00 Intake & Output 11/26/18 11/27/18 11/27/18 18:59 06:59 18:59 Intake Total 853.662 897 627.074 Output Total 1150 1825 700 Balance -296.338 -928 -72.926 Weight 69 kg Intake: IV 260 240 120 Sodium Chloride 0.9% 1, 260 240 120 000 ml @ 20 mls/hr IV . Q24H [facility] Rx#:[id number] Intake, IV Titration 117.662 237.074 Amount Heparin Sod,Pork in 0.45% 117.662 217.074 NaCl 25,000 unit In 0.45 % NaCl 1 250ml.bag @ 12 UNITS/KG/HR 8.165 mls/hr IV .Q24H [facility] Rx#: [id number] Sodium Chloride 0.9% 1, 20 000 ml @ 20 mls/hr IV . Q24H [facility] Rx#:[id number] Oral 476 537 270 Blood Product 120 Output: Urine 1150 1825 700 Other: Voiding Method Urinal Urinal Urinal - Exam General: [non toxic], [no distress], [appears at stated age] Derm: [warm], [dry] Head: [atraumatic], [normocephalic], [symmetric] Eyes: [EOMI], [no lid lag], [anicteric sclera] Mouth: [no lip lesion], [mucus membranes moist] Cardiovascular: [S1S2 reg], [no murmur], [positive DP pulse bilateral] Lungs: [CTA bilateral], [no rhonchi, no rales] , [no accessory muscle use] Abdominal: [soft], [ nontender to palpation], [no guarding], [no appreciable organomegaly] Ext: [no gross muscle atrophy], [no edema], [no contractures] Neuro: [ CN II-XI grossly intact], [no focal neuro deficits] Psych: [Alert], [oriented], [appropriate affect] - Labs CBC & Chem 7: 11/27/18 05:03 11/27/18 05:03 Labs: Abnormal Lab Results - Last 24 Hours (Table) 11/26/18 11/26/18 11/26/18 Range/Units 16:47 17:32 19:56 RBC 3.18 L (4.30-5.90) m/uL Hgb 8.3 L (13.0-17.5) gm/dL Hct 26.6 L (39.0-53.0) % MCHC (31.0-37.0) g/dL RDW 17.1 H (11.5-15.5) % APTT (22.0-30.0) sec BUN (9-20) mg/dL Creatinine (0.66-1.25) mg/dL Glucose (74-99) mg/dL POC Glucose (mg/dL) 156 H 178 H (75-99) mg/dL Magnesium (1.6-2.3) mg/dL 11/26/18 11/27/18 11/27/18 Range/Units 21:00 05:03 05:03 RBC 3.08 L (4.30-5.90) m/uL Hgb 7.9 L (13.0-17.5) gm/dL Hct 25.6 L (39.0-53.0) % MCHC 30.7 L (31.0-37.0) g/dL RDW 16.7 H (11.5-15.5) % APTT (22.0-30.0) sec BUN 30 H (9-20) mg/dL Creatinine 1.54 H (0.66-1.25) mg/dL Glucose 114 H (74-99) mg/dL POC Glucose (mg/dL) 158 H (75-99) mg/dL Magnesium 2.4 H (1.6-2.3) mg/dL 11/27/18 11/27/18 11/27/18 Range/Units 05:03 06:37 11:27 RBC (4.30-5.90) m/uL Hgb (13.0-17.5) gm/dL Hct (39.0-53.0) % MCHC (31.0-37.0) g/dL RDW (11.5-15.5) % APTT 61.6 H (22.0-30.0) sec BUN (9-20) mg/dL Creatinine (0.66-1.25) mg/dL Glucose (74-99) mg/dL POC Glucose (mg/dL) 133 H 115 H (75-99) mg/dL Magnesium (1.6-2.3) mg/dL Assessment and Plan Assessment: Non-ST elevation ME Cardiac arrest with ventricular fibrillation Chronic kidney disease stage III COPD without exacerbation Heart failure with EF 55%, chronic Paroxysmal atrial fibrillation Hypertension Echocardiogram showing new wall hypokinesis. Troponin elevated. Plans: Continue aspirin and Lipitor. Continue Plavix. Continue heparin drip. Continue beta kandis. Plans for cardiac catheterization tomorrow. Follow cardiac recommendations. Plans: Keep potassium greater than 4 magnesium greater than 2. Telemetry monitoring. Continue heparin drip pending cardiac catheterization. Possible plans for CTA chest to rule out PE if cath is unrevealing. Follow cardiology recommendations. At baseline. Plans: Avoid nephrotoxins. Daily BMP. Stable. Plans: DuoNeb as needed for shortness of breath and wheezing. Euvolemic. Plans: Continue beta kandis. Discuss WHIT inhibitor with PCP. Stable. Plans: Continue beta kandis. Xarelto on hold for possible cath. BP 152/67. Plans: Continue hydralazine, Imdur, Norvasc and metoprolol. Monitor vitals, adjust medications as necessary. [Plans for cardiac catheterization tomorrow. Patient is pending clinical improvement. Cardiology on board.]
[2018-11-27 17:14] LABS: Glucose,Whole Blood 188 mg/dL (75-99)
[2018-11-27] MEDS ORDERED: MAGNESIUM HYDROXIDE 2,400 MG/10 ML CUP PO PRN (18:19)
[2018-11-27] MEDS: DOCUSATE 100 MG CAP PO PRN (18:43)
[2018-11-27] MEDS: ACETAMINOPHEN TAB 325 MG TAB PO PRN (20:43)
[2018-11-27 21:09] LABS: Glucose,Whole Blood 186 mg/dL (75-99)
[2018-11-28 05:06] LABS: Anisocytosis Slight; HCT 25.7 % (39.0-53.0); Hypochromasia Slight; MCH 25.7 pg (25.0-35.0); MCHC 31.2 g/dL (31.0-37.0); MCV 82.2 fL (80.0-100.0); Mean Platelet Volume 7.6; Platelet Count 264 k/uL (150-450); RBC 3.13 m/uL (4.30-5.90); RDW 16.8 % (11.5-15.5); WBC 7.8 k/uL (3.8-10.6)
[2018-11-28 05:53] LABS: Calcium 8.8 mg/dL (8.4-10.2); Potassium 4.1 mmol/L (3.5-5.1)
--- NOTE | 2018-11-28 07:07 | XR ---
EXAMINATION TYPE: XR chest 1V portable DATE OF EXAM: 11/28/2018 CLINICAL HISTORY: Difficulty breathing progress study. COPD and CHF. TECHNIQUE: Single AP portable upright view of the chest is obtained. COMPARISON: Chest x-ray from one day earlier and older studies. 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 Cardiac silh ouette size is stable and enlarged with atherosclerotic thoracic aorta. Persistent right greater than left bibasilar opacities. No pneumothorax is seen bilaterally. Multilevel spurring in the thoracic s pine is present. IMPRESSION: Overall stable findings, suspect persistent CHF exacerbation as there is cardiomegaly w ith mild central vascular congestion and small bilateral pleural effusions with associated right grea ter than left bibasilar atelectasis and/or infiltrate all felt present.
[2018-11-28] MEDS ORDERED: ALPRAZolam 0.25 MG TAB PO PRN (07:42)
[2018-11-28] MEDS ORDERED: SODIUM CHLORIDE 0.9% 1,000 ML in EMPTY BAG 1 BAG IV ONE (07:42)
[2018-11-28] MEDS ORDERED: ALPRAZolam 0.5 MG TAB PO PRN (07:42)
[2018-11-28] MEDS ORDERED: NITROGLYCERIN SL TABS 0.4 MG TAB SUBLINGUAL PRN (07:42)
[2018-11-28] MEDS ORDERED: ASPIRIN 325 MG TAB PO STA (07:44)
[2018-11-28] MEDS ORDERED: ATORVASTATIN 80 MG TAB PO STA (07:44)
[2018-11-28] MEDS: METOPROLOL TARTRATE 50 MG TAB PO SCH ×2 (08:22→21:22)
[2018-11-28] MEDS: PANTOPRAZOLE 40 MG TABLET PO SCH ×2 (08:22→17:57)
[2018-11-28] MEDS: CLOPIDOGREL 75 MG TAB PO SCH (08:25)
[2018-11-28] MEDS: hydrALAZINE HCL 50 MG TAB PO SCH ×3 (08:25→21:21)
[2018-11-28] MEDS: ISOSORBIDE MONONITRATE ER 60 MG TAB.ER.24H PO SCH (08:25)
[2018-11-28] MEDS: POTASSIUM CHLORIDE ER 20 MEQ TAB.ER PO SCH (08:26)
[2018-11-28] MEDS: FUROSEMIDE 40 MG TAB PO SCH ×2 (08:26→16:20)
[2018-11-28] MEDS: amLODIPine 5 MG TAB PO SCH ×2 (08:26→21:21)
[2018-11-28 08:32] LABS: Glucose,Whole Blood 128 mg/dL (75-99)
[2018-11-28] MEDS: IPRATROPIUM-ALBUTEROL 3 ML NEB INHALATION SCH ×4 (08:41→20:28)
[2018-11-28] MEDS: BUDESONIDE 1 MG/2 ML NEBU INHALATION SCH ×2 (08:42→20:28)
[2018-11-28] MEDS: SODIUM CHLORIDE 0.9% 1,000 ML IV SCH (10:22)
[2018-11-28] MEDS: CLEVIDIPINE BUTYRATE 25 MG in EMPTY BAG 1 BAG IV SCH (11:03)
--- NOTE | 2018-11-28 12:17 | P.PN ---
Subjective Progress Note Date: 11/28/18 Principal diagnosis: Acute torsade de pointes, and acute pulmonary edema This is a 73-year-old male patient with extensive cardiac history including coronary artery disease with previous bypass surgery, chronic A. fib, diastolic heart failure, hypertension and hyperlipidemia and COPD with chronic hypoxic respiratory failure maintained on oxygen at 4 L per minute nasal cannula with an FEV1 of 63% of predicted, diffusion capacity of 61% predicted and total lung capacity of 99% of predicted. The patient's developed an acute shortness of breath. He felt some chest discomfort subsequently was unable to breathe. He asked to be moved to the hospital. The patient was brought via EMS. The patient admitted that he was progressively getting more short of breath and he had difficulties and laying down flat. He was quite tachypneic at a time of admission and the blood pressure was also elevated. Chest x-ray showed cardiomegaly and pulmonary edema. The initial blood pressure was 180/94 in the patient's respiratory rate was 24. Based on all this, the patient was given diuretics. The patient was started on a nitroglycerin drip. The patient was placed on a BiPAP. 30 minutes while being in the emergency, the patient became acutely unresponsive. monitoring tech showed polymorphic ventricular tachycardia consistent with torsade de pointes. Based on this, the patient wound received an immediate cardioversion with 200 J biphasic and the patient was also given 2 g of magnesium 1 g of calcium. The cardioversion was successful. EKG showed no significant abnormalities or prolongation of the QT. The patient is currently in normal sinus rhythm with PACs and the patient has a 70 her conduction delay, probably a left bundle branch block pattern. The first set of cardiac enzymes showed a troponin of 0.07. BNP was 4530. Creatinine is at 1.5 with a BUN of 36. The patient got transferred to the intensive care unit and while on the BiPAP. The patient is on a BiPAP pressure of 14/7 cm of water with an FiO2 of 40%. Is receiving Lasix 40 mg IV push every 12 hours. He is on long-term articulation with Xarelto 2.5 mg twice a day. He was started on clevidipine drip for tighter blood pressure control. He was also restarted back on hydralazine and metoprolol. Nitroglycerin drip is also running at 5 g per minute. No chest pain. No back pain. No arm pain. No neck pain. No further episodes of arrhythmias at this point in time. Echocardiogram is to follow. Cardiology consultation is to follow. On 11/23/2018 I'm seeing this patient for a follow-up. This morning the patient is feeling better and he seems to much more comfortable compared to yesterday. The patient was taken off the BiPAP which was set at a pressure of 14/7 cm of water and currently is on 40 of oxygen by nasal cannula which is very close to his baseline. He is free of any chest pains no nitroglycerin drip which is running at 60 g per minute. His BP is under better control while being on Cleviprex at the rate of 3 mg an hour. The patient diuresed well over the past 12 hours while being on IV Lasix. Creatinine is up to 1.9 and the patient will be taken off the diuretics. No cough or sputum production. No chest pain this morning. His cardiac rhythm is sinus and the patient remains on IV heparin. Cardiology is on the case and the plan is to proceed with a cardiac catheterization within the next 24-48 hours. Otherwise, no other significant events on this patient overnight. A repeat echo was ordered and the results are still pending for now. On 11/24/2018 I'm seeing this patient for a follow-up. He is quite comfortable this morning her 40s of oxygen nasal cannula. Overnight he had to be placed back on a BiPAP and this morning his back off. His son nitroglycerin drip which has been cut down to 40 g. He is also on Cleviprex drip which is running at 2 mg an hour. Blood pressure is still fluctuating. Creatinine is up to 1.9. History of any chest pain. No nausea. No vomiting. No abdominal pain. He has remained hemodynamically stable. Cardiac rhythm is sinus for now. He remains on IV heparin. Ultimately plan is to proceed with a cardiac catheterization. This was not done today as the patient's creatinine has been up to 1.9. We'll monitor the renal function will continue to follow. Repeat echo showed a preserved LV function with an ejection fraction of 50-55%. There is inferior hypokinesis, mild MR, moderate pulmonary hypertension with a PA pressure 46. On 11/25/2018, patient is being seen for a follow-up. The night was uneventful. Nevertheless this morning the patient became acutely shortness of breath and he developed chest pain. His still in nitroglycerin drip at 40 mics. He is also on IV heparin. He developed atrial fibrillation. He also became hypertensive. Note that the Cleviprex drip has been discontinued yesterday. Immediately was placed on a BiPAP at a pressure of 14/7 cm of water. He seems to much more rested for now. No nausea. No vomiting. No aspiration. Chest x-ray from this morning showed some cardiomegaly without signs of any pulmonary edema or failure. The hemoglobin today is at 7.7 with a white cell count of 11.2. Creatinine is improved and found to 1.43. He remains on aspirin. He remains on Plavix. He remains on beta blockers. On 11/26/2018 I'm seeing the patient for a follow-up. This morning the patient utilizes BiPAP again. His breathing is somewhat labored. As stated earlier the patient is having on and off some shortness of breath. Blood pressure remains somewhat elevated. The patient received all of his antihypertensive medications today. Is a bit anxious. Denies having any chest pain. Rhythm is sinus. Producing adequate amount of urine output. Creatinine is stable at 1.4. Awaiting final decision from cardiology regarding the need for cardiac catheterization. No headache. No altered mentation. No chest pain for this morning. Reevaluated today, 11/27, patient remains in the ICU, using nasal cannula, the BiPAP is at bedside. Patient is feeling a bit better, chest x-ray is showing interstitial edema, patient had his Lasix on hold earlier today, and he is scheduled to undergo cardiac catheterization. No fever no chills no hemoptysis no chest pain. Labs were reviewed, BUN is 30 creatinine is 1.54 which is close to his baseline. Reevaluated today on 11/28, remains in the ICU, intermittently on BiPAP, presently on nasal cannula. Patient denies any chest pain, no shortness of breath, no fever, no chills, no hemoptysis. Chest x-ray continues to show mild interstitial edema. Patient may undergo cardiac catheterization today however is going to be late today. His renal functioning is about the same. And that is basically close to his baseline. Creatinine in the range of 1.5. Objective - Vital Signs Vital signs: Vital Signs Temp 97.9 F 11/28/18 08:00 Pulse 68 11/28/18 11:59 Resp 19 11/28/18 11:00 BP 145/64 11/28/18 11:00 Pulse Ox 92 L 11/28/18 11:00 Intake & Output 11/27/18 11/28/18 11/28/18 18:59 06:59 18:59 Intake Total 1267.074 440 308 Output Total 1250 1000 250 Balance 17.074 -560 58 Weight 72 kg Intake: IV 220 240 20 Sodium Chloride 0.9% 1, 220 240 20 000 ml @ 20 mls/hr IV . Q24H [facility] Rx#:[id number] Intake, IV Titration 237.074 288 Amount Heparin Sod,Pork in 0.45% 217.074 NaCl 25,000 unit In 0.45 % NaCl 1 250ml.bag @ 12 UNITS/KG/HR 8.165 mls/hr IV .Q24H [facility] Rx#: [id number] Sodium Chloride 0.9% 1, 20 72 000 ml @ 20 mls/hr IV . Q24H [facility] Rx#:[id number] Sodium Chloride 0.9% 1, 216 000 ml In Empty Bag 1 bag @ 1 ML/KG/HR 72 mls/hr IV .[id number] [facility] Rx#: [id number] Oral 810 200 Output: Urine 1250 1000 250 Other: Voiding Method Urinal Urinal Urinal # Voids 1 # Bowel Movements 1 - Exam Physical Exam: Revealed a 73-year-old white male, pleasant, in no distress. Head: Atraumatic, normocephalic. HEENT:[Neck is supple.] [No neck masses.] [No thyromegaly.] [No JVD.] PERRLA, EOMI, no icterus. Moist mucous membranes. Chest: [Symmetrical chest expansions, crackles at the bases.] Cardiac Exam: [Normal S1 and S2, no S3 gallop, 2/6 systolic murmur thought the precordium. Abdomen: [Soft, nontender, no megaly, no rebound, no guarding, normal bowel sounds.] Extremities: [No clubbing, trace of bipedal edema,no cyanosis.] Neurological Exam: [No focal neurologic deficit.] Alert and oriented 3. Psychiatric: Normal mood, flat affect and normal mental status examination. - Labs CBC & Chem 7: 11/28/18 04:41 11/28/18 04:41 Labs: Abnormal Lab Results - Last 24 Hours (Table) 11/27/18 11/27/18 11/28/18 Range/Units 17:02 20:58 04:41 RBC (4.30-5.90) m/uL Hgb (13.0-17.5) gm/dL Hct (39.0-53.0) % RDW (11.5-15.5) % APTT (22.0-30.0) sec BUN 35 H (9-20) mg/dL Creatinine 1.52 H (0.66-1.25) mg/dL Glucose 121 H (74-99) mg/dL POC Glucose (mg/dL) 188 H 186 H (75-99) mg/dL 11/28/18 11/28/18 11/28/18 Range/Units 04:41 04:41 08:21 RBC 3.13 L (4.30-5.90) m/uL Hgb 8.0 L (13.0-17.5) gm/dL Hct 25.7 L (39.0-53.0) % RDW 16.8 H (11.5-15.5) % APTT 67.8 H (22.0-30.0) sec BUN (9-20) mg/dL Creatinine (0.66-1.25) mg/dL Glucose (74-99) mg/dL POC Glucose (mg/dL) 128 H (75-99) mg/dL Assessment and Plan Assessment: Impression: 1 acute hypoxic respiratory failure secondary to pulmonary edema, diastolic congestive heart failure, and underlying COPD. 2 acute hypertensive emergency, resolved 3 acute torsade, polymorphic ventricular tachycardia and successful cardioversion 4 chronic atrial fibrillation 5 chronic anemia 6 moderate severe COPD 7 chronic chronic kidney disease stage III 8 degenerative joint disease 9 chronic back pain 10 degenerative joint disease Recommendation: Continue diuretics Continue bronchodilators Awaiting possible cardiac catheterization sometime today. Continue aspirin, metoprolol, and heparin We will continue to monitor in the ICU for the next 24 hours and based on the cardiac catheterization findings, further recommendations will follow. Continue GI and DVT prophylaxis. Time with Patient: Less than 30
[2018-11-28] MEDS: HEPARIN SOD,PORK IN 0.45% NACL 25,000 UNIT in 0.45% NACL 1 250ML.BAG IV SCH (12:23)
[2018-11-28] MEDS ORDERED: IV FLUID CONTINUATION 1,000 ML IV ONE (12:51)
[2018-11-28] MEDS ORDERED: fentaNYL (PF) 50 MCG/ML 2 ML AMP IV ONE (13:27)
[2018-11-28] MEDS ORDERED: LIDOCAINE 1% INJ 10MG/ML (20 ML MDV) SQ ONE (13:29)
[2018-11-28] MEDS ORDERED: MIDAZOLAM (PF) 2 MG/2 ML VIAL IV ONE (13:33)
[2018-11-28] MEDS ORDERED: IOPAMIDOL-370 100ML BTL INJ ONE (13:46)
[2018-11-28] MEDS ORDERED: IOPAMIDOL-370 50ML BTL INJ ONE (13:56)
[2018-11-28] MEDS ORDERED: RX INFO: IV CONTRAST WAS GIVEN 1 EACH MISC MISCELLANE PRN (14:12)
[2018-11-28] MEDS ORDERED: SODIUM CHLORIDE 0.9% 1,000 ML IV SCH (14:15)
--- NOTE | 2018-11-28 15:40 | P.PN ---
Subjective Progress Note Date: 11/28/18 Principal diagnosis: non-ST elevation MO, cardiac arrest Patient was seen and examined. No acute events overnight. Just underwent cath. Patient complains of fatigue pain at the groin. He denies any chest pain, shortness of breath or palpitations. States that he wants to go home tomorrow. No nausea or vomiting. No fever or chills. Objective - Vital Signs Vital signs: Vital Signs Temp 98.0 F 11/28/18 15:00 Pulse 86 11/28/18 15:00 Resp 12 11/28/18 15:27 BP 126/53 11/28/18 15:27 Pulse Ox 95 11/28/18 15:27 Intake & Output 11/27/18 11/28/18 11/28/18 18:59 06:59 18:59 Intake Total 1267.074 440 781.349 Output Total 1250 1000 600 Balance 17.074 -560 181.349 Weight 72 kg Intake: IV 220 240 170 Sodium Chloride 0.9% 1, 220 240 20 000 ml @ 20 mls/hr IV . Q24H [facility] Rx#:[id number] Intake, IV Titration 237.074 611.349 Amount Heparin Sod,Pork in 0.45% 217.074 251.349 NaCl 25,000 unit In 0.45 % NaCl 1 250ml.bag @ 12 UNITS/KG/HR 8.165 mls/hr IV .Q24H [facility] Rx#: [id number] Sodium Chloride 0.9% 1, 20 72 000 ml @ 20 mls/hr IV . Q24H [facility] Rx#:[id number] Sodium Chloride 0.9% 1, 288 000 ml In Empty Bag 1 bag @ 1 ML/KG/HR 72 mls/hr IV .[id number] [facility] Rx#: [id number] Oral 810 200 Output: Urine 1250 1000 600 Other: Voiding Method Urinal Urinal Urinal # Voids 1 # Bowel Movements 1 - Exam General: [non toxic], [no distress], [appears at stated age] Derm: [warm], [dry] Head: [atraumatic], [normocephalic], [symmetric] Eyes: [EOMI], [no lid lag], [anicteric sclera] Mouth: [no lip lesion], [mucus membranes moist] Cardiovascular: [S1S2 reg], [no murmur], [positive DP pulse bilateral] Lungs: [CTA bilateral], [no rhonchi, no rales] , [no accessory muscle use] Abdominal: [soft], [ nontender to palpation], [no guarding], [no appreciable organomegaly] Ext: [no gross muscle atrophy], [no edema], [no contractures] Neuro: [ CN II-XI grossly intact], [no focal neuro deficits] Psych: [Alert], [oriented], [appropriate affect] - Labs CBC & Chem 7: 11/28/18 04:41 11/28/18 04:41 Labs: Abnormal Lab Results - Last 24 Hours (Table) 11/27/18 11/27/18 11/28/18 Range/Units 17:02 20:58 04:41 RBC (4.30-5.90) m/uL Hgb (13.0-17.5) gm/dL Hct (39.0-53.0) % RDW (11.5-15.5) % APTT (22.0-30.0) sec BUN 35 H (9-20) mg/dL Creatinine 1.52 H (0.66-1.25) mg/dL Glucose 121 H (74-99) mg/dL POC Glucose (mg/dL) 188 H 186 H (75-99) mg/dL 11/28/18 11/28/18 11/28/18 Range/Units 04:41 04:41 08:21 RBC 3.13 L (4.30-5.90) m/uL Hgb 8.0 L (13.0-17.5) gm/dL Hct 25.7 L (39.0-53.0) % RDW 16.8 H (11.5-15.5) % APTT 67.8 H (22.0-30.0) sec BUN (9-20) mg/dL Creatinine (0.66-1.25) mg/dL Glucose (74-99) mg/dL POC Glucose (mg/dL) 128 H (75-99) mg/dL Assessment and Plan Assessment: Non-ST elevation MO Cardiac arrest with ventricular fibrillation Anemia Chronic kidney disease stage III COPD without exacerbation Heart failure with EF 55%, chronic Paroxysmal atrial fibrillation Hypertension Echocardiogram showing new wall hypokinesis. Troponin elevated. Plans: Continue aspirin and Lipitor. Continue Plavix. Discontinue heparin drip if cath normal. Continue beta kandis. Patient underwent Cardiac catheterization, states that it was negative, will await report. Follow cardiac recommendations. Plans: Keep potassium greater than 4 magnesium greater than 2. Telemetry monitoring. Patient underwent Cardiac catheterization, states that it was negative, will await report and DC Heparin drip if normal. Possible plans for CTA chest to rule out PE if cath is unrevealing. Follow cardiology recom mendations. Hemoglobin 8, stable since admission. Normocytic. Likely secondary to his chronic kidney disease. Plans: Daily CBC. Transfuse if hemoglobin less than 7. At baseline. Plans: Avoid nephrotoxins. Daily BMP. Stable. Plans: DuoNeb as needed for shortness of breath and wheezing. Euvolemic. Plans: Continue beta kandis. Discuss WHIT inhibitor with PCP. Stable. Plans: Continue beta kandis. Restart Xarelto. BP 126/53. Plans: Continue hydralazine, Imdur, Norvasc and metoprolol. Monitor vitals, adjust medications as necessary. [Patient is post cardiac catheterization. Will follow cardiology recommendations. Patient is pending clinical improvement. Likely DC in 1-2 days.]
[2018-11-28] MEDS: LORazepam 0.5 MG TAB PO PRN (17:55)
--- NOTE | 2018-11-28 20:17 | CC ---
CARDIAC CATHETERIZATION REPORT Mr. Duncan is a 73-year-old male with a known history of coronary artery disease, status post coronary artery bypass grafting, history of peripheral vascular disease, COPD, who presented with evidence of dizziness, dyspnea and had an episode of torsade with minimal troponin elevation. Initially he had renal function abnormalities, and after being stabilized recommendations were made regarding cardiac catheterization. The procedure, its risks and complication were discussed with the patient, who was in full understanding and agreement. PROCEDURE DESCRIPTION: Patient was brought to the shift lab technician in a fasting, semi-sedated state after receiving fentanyl and Benadryl and achieving a moderate conscious sedated state. Using Xylocaine anesthesia and Seldinger technique, a 6-[place]an sheath was introduced in the right femoral artery. Selective right and left coronary angiography was performed using 6-[place]an 4 bend right and left Yuli catheters. Multiple views were taken of the coronary arteries, including hemiaxial views. The 6-[place]an right Yuli was used to cannulate the saphenous vein graft to the right coronary artery, obtuse marginal branch, as well as VILLALBA to LAD. Multiple views of the grafts were obtained. Following that, a 6-[place]an tight pigtail catheter was introduced in the left ventricle and pressures were calculated. Following that, catheter and sheaths were removed. Hemostasis was obtained with compression of the right groin. There were no immediate complications. The patient was returned to his room in stable condition. FINDINGS: FLUOROSCOPY: There was calcification involving the coronary arteries. LEFT MAIN: This is a large-sized vessel. I has a 99% stenosis in the mid segment prior to the bifurcation to LAD and left circumflex. LEFT ANTERIOR DESCENDING ARTERY: This vessel appears to be totally occluded with minimal antegrade flow and competitive flow through the VILLALBA. LEFT CIRCUMFLEX: The flow into the left circumflex was minimal, with competitive flow coming from the graft, and it appears that there is a significant stenosis involving the AV groove, left circumflex proximally. RIGHT CORONARY ARTERY: This vessel is totally occluded after the takeoff of the PDA. The PLV is occluded. Proximally the right coronary artery has a 50% to 60% stenosis in a calcified segment. The rest of the vessel has diffuse intimal disease. The caliber of the vessel is small. SAPHENOUS VEIN GRAFT TO RIGHT CORONARY ARTERY: This graft is totally occluded proximally with no antegrade flow. SAPHENOUS VEIN GRAFT TO THE LEFT CIRCUMFLEX: The proximal distal anastomotic sites are patent. The flow into the left circumflex is brisk. There is retrograde flow involving the LAD, first obtuse marginal branch as well as the AV groove left circumflex. There were also collaterals to the right PLV. VILLALBA TO LAD: The distal anastomotic site is patent. The flow into the LAD is brisk. There is retrograde flow into the diagonal branch. LEFT VENTRICULOGRAM: Left ventriculogram was not performed. HEMODYNAMICS: There was no gradient across the aortic valve. The left ventricular end-diastolic pressure was 16-18 mmHg. CONCLUSIONS: 1. Subtotally occluded left main. 2. Totally occluded mid right coronary artery. 3. Subtotally occluded LAD and left circumflex. 4. Patent VILLALBA to LAD. 5. Patent saphenous vein graft to the obtuse marginal branch. 6. Occluded saphenous vein graft to the right coronary artery. 7. Severe peripheral vascular disease. RECOMMENDATIONS: In view of findings and anatomy, I have recommended continued medical therapy with maximizing his present regimen. He will obtain the input of Dr. Goldstein regarding possible further intervention because of the torsade. Those findings and recommendations were discussed with the patient, who is in full understanding and agreement. Duration of procedure was 26 minutes. MMODL / IJN: [id number] /
[2018-11-28] MEDS: ACETAMINOPHEN TAB 325 MG TAB PO PRN (21:22)
[2018-11-28] MEDS: APIXABAN 2.5 MG TABLET PO SCH (21:22)
[2018-11-29] MEDS: PANTOPRAZOLE 40 MG TABLET PO SCH ×2 (07:12→16:57)
--- NOTE | 2018-11-29 07:37 | P.CRDCN ---
<Kimberly Pierre - Last Filed: 11/28/18 17:32> History of Present Illness History of present illness: This is Kimberly Pierre PA-C dictating an EP consult on this patient The patient was interviewed and examined by me as well as by Dr. Goldstein Case discussed with Dr. Goldstein and he agrees with the plan of care IMPRESSION / ASSESSMENT: Ventricular fibrillation, likely related to ischemia, troponins elevated on admission, recent echo showed EF is 50-55% CAD status post CABG with recent angiogram showing patent grafts Peripheral artery disease Paroxysmal atrial fibrillation, rate controlled COPD Former smoker PLAN: Detailed discussion with patient regarding his options and considerations including the possibility of this recurring, limitations of medical treatment, and his quality of life Given the possibility of the ventricular fibrillation recurring, we recommend an ICD for secondary prevention of sudden cardiac Recommend dual-chamber ICD to allow maximization of beta kandis therapy At this time, the patient would like to take the time to think about whether or not he would like to proceed with ICD placement HPI Patient is a 73-year-old male with a past medical history of CAD status post CABG, PAD, paroxysmal atrial fibrillation, COPD who presented with complaints of dyspnea and chest discomfort. He states he gets anginal symptoms a few times a month when he overexerts himself. His exercise capacity is quite limited due to his angina and shortness of breath. He also complains of two-pillow orthopnea and PND. He was at home sitting in his chair watching TV when he started to experience chest discomfort and became very short of breath. Denied palpitations, dizziness, lightheadedness. His called EMS. On arrival his EKG showed atrial fibrillation with controlled ventricular response, ST depression in the lateral precordial leads. His troponins were elevated. He had an episode of ventricular fibrillation and was shocked in the emergency room. Echocardiogram showed EF 50-55%. He underwent a coronary angiogram which showed patent grafts, no intervention was performed. Telemetry showed some episodes of sinus bradycardia with rates in the 50s and some episodes of atrial fibrillation with controlled ventricular response. Patient seen and examined resting comfortably in bed. Not having any chest pain or trouble breathing at this time. ROS: No fevers, chills or rigors, no cough, phlegm or expectoration, no nausea, vomiting or diarrhea, no hematuria, dysuria, no musculoskeletal complaints, no strokes or seizures, no skin lesions. EXAMINATION: Patient is afebrile, pulse 67, respirations 17, blood pressure 141/70, oxygen saturation 93% on 6 L nasal cannula Patient seen and examined resting in bed, in no acute distress Lungs mildly diminished but clear to auscultation bilaterally Heart is irregularly irregular, soft systolic murmur appreciated No elevated JVD No lower extremity edema REVIEW OF LABS, ECG & MEDICAL DATA WBC 7.8, hemoglobin 8.0, platelets 264, potassium 4.1, magnesium 2.4, BUN 35, creatinine 1.52 Echocardiogram showed normal LV size, mild concentric LVH, EF 50-55%, inferior hypokinesis, no significant valvular abnormalities Past Medical History Past Medical History: Atrial Fibrillation, Coronary Artery Disease (CAD), Chest Pain / Angina, Heart Failure, COPD, Eye Disorder, GERD/Reflux, GI Bleed, Hyperlipidemia, Hypertension, Myocardial Infarction (MA), Osteoarthritis (OA), Pneumonia, Vascular Disorder Additional Past Medical History / Comment(s): Coronary artery disease with previous bypass surgery in 2006, previous coronary artery stenting in 2000, CHF with diastolic dysfunction and the patient is a preserved LV function based on recent echocardiogram, COPD with an FEV1 of 63% of predicted, hypertension, hyperlipidemia, acid reflux, osteoarthritis, previous history of right-sided pleural effusion secondary to CHF, recovered, chronic atrial fibrillation, hiatal hernia with previous history of gastric ulcer and the patient had a EGD and colonoscopy that was done in July 2017 indicating gastritis with negative H. pylori and the patient had some colonic polyps the necktie turner to be benign and a were resected via polypectomy. Patient has also hemorrhoids, chronic back pain, migraine, acid reflux, previous history of GI bleed, osteoarthritis, peripheral vascular disease Last Myocardial Infarction Date:: 2006 History of Any Multi-Drug Resistant Organisms: None Reported Past Surgical History: Appendectomy, Coronary Bypass/CABG, Heart Catheterization With Stent Additional Past Surgical History / Comment(s): EGD/COLONOSCOPY WITH POLYPECTOMY, TRIPLE CABG 2006. PCI/STENT IN 2000. STENTS BILATERAL LEGS, BILATERAL CATARACT REMOVAL. Past Anesthesia/Blood Transfusion Reactions: No Reported Reaction Date of Last Stent Placement:: 2000 Past Psychological History: No Psychological Hx Reported Additional Psychological History / Comment(s): Pt resides with his spouse. He uses a cane to ambulate. He drives. Smoking Status: Former smoker Past Alcohol Use History: None Reported Additional Past Alcohol Use History / Comment(s): SMOKED FROM AGE 12, 1/2 PPD, QUIT 2006. Past Drug Use History: None Reported - Past Family History Mother Family Medical History: Cancer, Osteoarthritis (OA) Medications and Allergies Home Medications Medication Instructions Recorded Confirmed Type Furosemide [Lasix] 40 mg PO BID #60 tab 01/13/18 11/22/18 Rx Metoprolol Tartrate [Lopressor] 50 mg PO TID #90 tab 01/13/18 11/22/18 Rx hydrALAZINE HCL [Apresoline] 50 mg PO TID #90 tab 01/13/18 11/22/18 Rx Aspirin 325 mg PO DAILY 11/22/18 11/22/18 History Nitroglycerin Sl Tabs [Nitrostat] 0.4 mg SUBLINGUAL Q5M PRN 11/22/18 11/22/18 History Potassium Chloride [Klor-Con 20] 20 meq PO DAILY 11/22/18 11/22/18 History Rivaroxaban [Xarelto] 2.5 mg PO BID 11/22/18 11/22/18 History Allergies Allergy/AdvReac Type Severity Reaction Status Date / Time No Known Allergies Allergy Verified 11/22/18 09:04 Physical Exam Vitals: Vital Signs Temp Pulse Resp BP BP Pulse Ox 11/28/18 17:15 67 17 141/70 93 L 11/28/18 17:00 86 14 138/50 93 L 11/28/18 16:45 65 16 138/50 94 L 11/28/18 16:30 68 15 142/71 93 L 11/28/18 16:15 71 15 169/62 92 L 11/28/18 16:00 98.1 F 86 17 131/52 93 L 11/28/18 15:45 71 17 130/55 92 L 11/28/18 15:27 12 126/53 95 11/28/18 15:00 98.0 F 86 15 145/70 94 L 11/28/18 13:00 131/66 11/28/18 12:37 19 11/28/18 12:00 97.9 F 66 21 144/68 93 L 11/28/18 11:59 68 11/28/18 11:46 65 11/28/18 11:00 68 19 145/64 92 L 08/20/19 10:00 64 16 139/64 95 11/28/18 09:00 70 13 132/67 94 L 11/28/18 08:55 78 11/28/18 08:42 78 11/28/18 08:00 97.9 F 86 15 143/72 95 11/28/18 07:00 75 18 150/64 95 11/28/18 06:00 85 19 151/62 94 L 11/28/18 05:00 74 25 H 153/65 94 L 11/28/18 04:00 98.2 F 63 22 146/69 94 L 11/28/18 03:00 81 12 133/50 93 L 11/28/18 02:00 51 L 15 130/45 95 11/28/18 01:00 65 19 136/60 93 L 11/28/18 00:53 95 11/28/18 00:00 98.2 F 66 16 138/53 96 11/27/18 23:00 63 25 H 143/55 97 11/27/18 22:33 64 15 143/55 97 11/27/18 22:00 68 20 155/67 95 11/27/18 21:00 89 23 174/72 94 L 11/27/18 20:00 98.3 F 89 16 164/66 97 11/27/18 19:32 92 11/27/18 19:23 95 20 11/27/18 19:00 86 20 123/50 92 L 11/27/18 18:00 87 18 165/61 93 L Intake and Output 11/28/18 11/28/18 11/28/18 06:59 14:59 22:59 Intake Total 160 781.349 780 Output Total 400 600 550 Balance -240 181.349 230 Intake: IV 160 170 Sodium Chloride 0.9% 1, 160 20 000 ml @ 20 mls/hr IV . Q24H [facility] Rx#:[id number] Intake, IV Titration 611.349 300 Amount Heparin Sod,Pork in 0.45% 251.349 NaCl 25,000 unit In 0.45 % NaCl 1 250ml.bag @ 12 UNITS/KG/HR 8.165 mls/hr IV .Q24H [facility] Rx#: [id number] Sodium Chloride 0.9% 1, 300 000 ml @ 100 mls/hr IV . Q10H [facility] Rx#:[id number] Sodium Chloride 0.9% 1, 72 000 ml @ 20 mls/hr IV . Q24H [facility] Rx#:[id number] Sodium Chloride 0.9% 1, 288 000 ml In Empty Bag 1 bag @ 1 ML/KG/HR 72 mls/hr IV .[id number] [facility] Rx#: [id number] Oral 480 Output: Urine 400 600 550 Other: Voiding Method Urinal Urinal Urinal # Voids 1 Weight 72 kg Results 11/28/18 04:41 11/28/18 04:41 Coagulation 11/28/18 Range/Units 04:41 APTT 67.8 H (22.0-30.0) sec CBC 11/28/18 Range/Units 04:41 WBC 7.8 (3.8-10.6) k/uL RBC 3.13 L (4.30-5.90) m/uL Hgb 8.0 L (13.0-17.5) gm/dL Hct 25.7 L (39.0-53.0) % Plt Count 264 (150-450) k/uL Comprehensive Metabolic Panel 11/28/18 Range/Units 04:41 Sodium 140 (137-145) mmol/L Potassium 4.1 (3.5-5.1) mmol/L Chloride 105 (98-107) mmol/L Carbon Dioxide 25 (22-30) mmol/L BUN 35 H (9-20) mg/dL Creatinine 1.52 H (0.66-1.25) mg/dL Glucose 121 H (74-99) mg/dL Calcium 8.8 (8.4-10.2) mg/dL Current Medications Generic Name Dose Route Start Last Admin Trade Name Freq PRN Reason Stop Dose Admin Acetaminophen 650 mg 11/22/18 15:19 11/27/18 20:43 Tylenol Tab PO 650 mg Q6HR PRN Administration Mild Pain or Fever > 100.5 Hydrocodone Bitart/Acetaminophen 1 each 11/22/18 15:19 11/27/18 15:30 [place]apleton 5-325 PO 1 each Q4HR PRN Administration Moderate Pain Albuterol Sulfate 2.5 mg 11/26/18 08:16 11/26/18 16:27 Ventolin Nebulized INHALATION 2.5 mg RT-QID PRN Administration Shortness Of Breath Or Wheezing Albuterol/Ipratropium 3 ml 11/22/18 12:00 11/28/18 15:00 Duoneb 0.5 Mg-3 Mg/3 Ml Soln INHALATION 3 ml RT-QID [facility] Administration Alprazolam 0.25 mg 11/28/18 07:42 Xanax PO Q6HR PRN Mild Anxiety Alprazolam 0.5 mg 11/28/18 07:42 Xanax PO Q6HR PRN Moderate Anxiety Amlodipine Besylate 5 mg 11/24/18 09:00 11/28/18 08:26 Norvasc PO 5 mg BID [facility] Administration Apixaban 2.5 mg 11/28/18 21:00 Eliquis PO BID [facility] Aspirin 81 mg 11/29/18 09:00 Aspirin PO DAILY [facility] Atorvastatin Calcium 40 mg 11/29/18 09:00 Lipitor PO DAILY [facility] Budesonide 1 mg 11/26/18 08:16 11/28/18 08:42 Pulmicort INHALATION 1 mg RT-BID [facility] Administration Calcium Carbonate/Glycine 500 mg 11/25/18 08:23 Tums PO TID PRN Heartburn Docusate Sodium 100 mg 11/27/18 18:18 11/27/18 18:43 Colace PO 100 mg DAILY PRN Administration Constipation Furosemide 40 mg 11/26/18 09:00 11/28/18 16:20 Lasix PO 40 mg BID@0900,1600 [facility] Administration Hydralazine HCl 100 mg 11/26/18 16:00 11/28/18 16:20 Apresoline PO 100 mg TID [facility] Administration Sodium Chloride 1,000 mls @ 20 mls/hr 11/22/18 09:30 11/28/18 10:22 Saline 0.9% IV Not Given .Q24H [facility] Clevidipine 25 mg/ IV Solution 50 mls @ 2 mls/hr 11/22/18 11:30 11/28/18 11:03 IV Not Given .Q24H [facility] Protocol 1 MG/HR Sodium Chloride 1,000 ml/ IV 1,000 mls @ 72 mls/hr 11/28/18 07:42 11/28/18 08:22 Solution IV 11/28/18 21:35 72 mls/hr .[id number] [facility] Administration 1 ML/KG/HR Sodium Chloride 1,000 mls @ 100 mls/hr 11/28/18 14:15 11/28/18 16:16 Saline 0.9% IV 11/28/18 21:44 100 mls/hr .Q10H [facility] Administration Isosorbide Mononitrate 120 mg 11/27/18 09:00 11/28/18 08:25 Imdur PO 120 mg DAILY [facility] Administration Lidocaine/Prilocaine 1 applic 11/22/18 22:57 11/23/18 05:42 Emla Cream 2.5%/2.5% TOPICAL 1 applic Q8H PRN Administration Pain Lorazepam 0.25 mg 11/26/18 08:14 11/26/18 16:41 Ativan PO 0.25 mg TID PRN Administration SEVERE Anxiety Magnesium Hydroxide 2,400 mg 11/27/18 18:19 Milk Of Magnesia PO DAILY PRN Constipation Melatonin 3 mg 11/22/18 15:19 Melatonin PO HS PRN Insomnia Metoprolol Tartrate 100 mg 11/27/18 09:00 11/28/18 08:22 Lopressor PO 100 mg BID [facility] Administration Miscellaneous Information 1 each 11/28/18 14:12 Rx Info: Iv Contrast Was Given MISCELLANE 11/30/18 14:12 DAILY PRN Per Protocol Naloxone HCl 0.2 mg 11/22/18 09:27 Narcan IV Q2M PRN Opioid Reversal Nitroglycerin 0.4 mg 11/22/18 11:21 Nitrostat SUBLINGUAL Q5M PRN Chest Pain Pantoprazole Sodium 40 mg 11/25/18 17:30 11/28/18 08:22 Protonix PO 40 mg AC-BID [facility] Administration Potassium Chloride 20 meq 11/23/18 09:00 11/28/18 08:26 K-Dur 20 PO 20 meq DAILY [facility] Administration Intake and Output 11/28/18 11/28/18 11/28/18 06:59 14:59 22:59 Intake Total 160 781.349 780 Output Total 400 600 550 Balance -240 181.349 230 Intake: IV 160 170 Sodium Chloride 0.9% 1, 160 20 000 ml @ 20 mls/hr IV . Q24H [facility] Rx#:[id number] Intake, IV Titration 611.349 300 Amount Heparin Sod,Pork in 0.45% 251.349 NaCl 25,000 unit In 0.45 % NaCl 1 250ml.bag @ 12 UNITS/KG/HR 8.165 mls/hr IV .Q24H [facility] Rx#: [id number] Sodium Chloride 0.9% 1, 300 000 ml @ 100 mls/hr IV . Q10H [facility] Rx#:[id number] Sodium Chloride 0.9% 1, 72 000 ml @ 20 mls/hr IV . Q24H [facility] Rx#:[id number] Sodium Chloride 0.9% 1, 288 000 ml In Empty Bag 1 bag @ 1 ML/KG/HR 72 mls/hr IV .[id number] [facility] Rx#: [id number] Oral 480 Output: Urine 400 600 550 Other: Voiding Method Urinal Urinal Urinal # Voids 1 Weight 72 kg 11/28/18 04:41 11/28/18 04:41 <Steven Goldstein - Last Filed: 11/29/18 07:37> History of Present Illness History of present illness: Consult requested by Dr. Dr. Arcos for further management of ventricular fibrillation with underlying ischemic substrate Patient does have ischemic heart disease but no coronary interventions recommended. No coronary targets for suitable for revascularization I had detailed discussion with him and recommended maximization of medical treatment His heart rates in sinus rhythm to run in the low 50s He also has paroxysmal atrial fibrillation with controlled ventricular response in the 80s I recommended a backup ICD for management of ventricular fibrillation given the fact that there is no other coronary intervention that is recommended at this point and that the recurrence of this event is likely He stated he would like to think about it at this time I did give the option of medical treatment only were asked him to consider an ICD, dual-chamber This will facilitate maximization of beta kandis therapy without precipitating bradycardia However the patient is undecided and does want some time to think about it and therefore it would be very reasonable to give him a LifeVest temporarily daily makes his final decision Physical Exam Vitals: Vital Signs Temp Pulse Resp BP BP Pulse Ox 11/29/18 07:00 84 22 142/53 92 L 11/29/18 06:00 64 16 145/57 96 11/29/18 05:00 75 19 135/48 94 L 11/29/18 04:00 97.9 F 61 14 135/51 100 11/29/18 03:00 62 15 138/50 93 L 11/29/18 02:00 65 19 142/51 94 L 11/29/18 01:00 63 25 H 122/44 93 L 11/29/18 00:00 98 F 64 13 130/47 98 11/28/18 23:00 63 12 132/45 92 L 11/28/18 22:00 79 18 141/62 95 11/28/18 21:00 89 13 149/68 93 L 11/28/18 20:41 76 11/28/18 20:30 70 11/28/18 20:00 98.2 F 87 19 145/58 93 L 11/28/18 19:00 69 17 149/69 94 L 11/28/18 18:30 70 26 H 131/59 95 11/28/18 18:00 69 17 150/66 92 L 11/28/18 17:45 67 19 150/66 95 11/28/18 17:30 68 16 141/70 92 L 11/28/18 17:15 67 17 141/70 93 L 11/28/18 17:00 86 14 138/50 93 L 11/28/18 16:45 65 16 138/50 94 L 11/28/18 16:30 68 15 142/71 93 L 11/28/18 16:15 71 15 169/62 92 L 11/28/18 16:00 98.1 F 86 17 131/52 93 L 11/28/18 15:45 71 17 130/55 92 L 11/28/18 15:27 12 126/53 95 11/28/18 15:10 77 11/28/18 15:00 98.0 F 86 15 145/70 94 L 11/28/18 13:00 131/66 11/28/18 12:37 19 11/28/18 12:00 97.9 F 66 21 144/68 93 L 11/28/18 11:59 68 11/28/18 11:46 65 11/28/18 11:00 68 19 145/64 92 L 11/28/18 10:00 64 16 139/64 95 11/28/18 09:00 70 13 132/67 94 L 11/28/18 08:55 78 11/28/18 08:42 78 11/28/18 08:00 97.9 F 86 15 143/72 95 Intake and Output 11/28/18 11/29/18 11/29/18 22:59 06:59 14:59 Intake Total 1440 260 20 Output Total 850 650 Balance 590 -390 20 Intake: IV 60 160 20 Sodium Chloride 0.9% 1, 60 160 20 000 ml @ 20 mls/hr IV . Q24H [facility] Rx#:[id number] Intake, IV Titration 500 Amount Sodium Chloride 0.9% 1, 500 000 ml @ 100 mls/hr IV . Q10H [facility] Rx#:[id number] Oral 880 100 Output: Urine 850 650 Other: Voiding Method Urinal Weight 68 kg Results 11/28/18 04:41 11/28/18 04:41 Current Medications Generic Name Dose Route Start Last Admin Trade Name Freq PRN Reason Stop Dose Admin Acetaminophen 650 mg 11/22/18 15:19 11/28/18 21:22 Tylenol Tab PO 650 mg Q6HR PRN Administration Mild Pain or Fever > 100.5 Hydrocodone Bitart/Acetaminophen 1 each 11/22/18 15:19 11/27/18 15:30 [place]apleton 5-325 PO 1 each Q4HR PRN Administration Moderate Pain Albuterol Sulfate 2.5 mg 11/26/18 08:16 11/26/18 16:27 Ventolin Nebulized INHALATION 2.5 mg RT-QID PRN Administration Shortness Of Breath Or Wheezing Albuterol/Ipratropium 3 ml 11/22/18 12:00 11/28/18 20:28 Duoneb 0.5 Mg-3 Mg/3 Ml Soln INHALATION 3 ml RT-QID [facility] Administration Alprazolam 0.25 mg 11/28/18 07:42 Xanax PO Q6HR PRN Mild Anxiety Alprazolam 0.5 mg 11/28/18 07:42 Xanax PO Q6HR PRN Moderate Anxiety Amlodipine Besylate 5 mg 11/24/18 09:00 11/28/18 21:21 Norvasc PO 5 mg BID [facility] Administration Apixaban 2.5 mg 11/28/18 21:00 11/28/18 21:22 Eliquis PO 2.5 mg BID [facility] Administration Aspirin 81 mg 11/29/18 09:00 Aspirin PO DAILY [facility] Atorvastatin Calcium 40 mg 11/29/18 09:00 Lipitor PO DAILY [facility] Budesonide 1 mg 11/26/18 08:16 11/28/18 20:28 Pulmicort INHALATION 1 mg RT-BID [facility] Administration Calcium Carbonate/Glycine 500 mg 11/25/18 08:23 Tums PO TID PRN Heartburn Docusate Sodium 100 mg 11/27/18 18:18 11/27/18 18:43 Colace PO 100 mg DAILY PRN Administration Constipation Furosemide 40 mg 11/26/18 09:00 11/28/18 16:20 Lasix PO 40 mg BID@0900,1600 [facility] Administration Hydralazine HCl 100 mg 11/26/18 16:00 11/28/18 21:21 Apresoline PO 100 mg TID [facility] Administration Sodium Chloride 1,000 mls @ 20 mls/hr 11/22/18 09:30 11/28/18 10:22 Saline 0.9% IV Not Given .Q24H [facility] Clevidipine 25 mg/ IV Solution 50 mls @ 2 mls/hr 11/22/18 11:30 11/28/18 11:03 IV Not Given .Q24H [facility] Protocol 1 MG/HR Isosorbide Mononitrate 120 mg 11/27/18 09:00 11/28/18 08:25 Imdur PO 120 mg DAILY [facility] Administration Lidocaine/Prilocaine 1 applic 11/22/18 22:57 11/23/18 05:42 Emla Cream 2.5%/2.5% TOPICAL 1 applic Q8H PRN Administration Pain Lorazepam 0.25 mg 11/26/18 08:14 11/28/18 17:55 Ativan PO 0.25 mg TID PRN Administration SEVERE Anxiety Magnesium Hydroxide 2,400 mg 11/27/18 18:19 Milk Of Magnesia PO DAILY PRN Constipation Melatonin 3 mg 11/22/18 15:19 Melatonin PO HS PRN Insomnia Metoprolol Tartrate 100 mg 11/27/18 09:00 11/28/18 21:22 Lopressor PO 100 mg BID [facility] Administration Miscellaneous Information 1 each 11/28/18 14:12 Rx Info: Iv Contrast Was Given MISCELLANE 11/30/18 14:12 DAILY PRN Per Protocol Naloxone HCl 0.2 mg 11/22/18 09:27 Narcan IV Q2M PRN Opioid Reversal Nitroglycerin 0.4 mg 11/22/18 11:21 Nitrostat SUBLINGUAL Q5M PRN Chest Pain Pantoprazole Sodium 40 mg 11/25/18 17:30 11/29/18 07:12 Protonix PO 40 mg AC-BID [facility] Administration Potassium Chloride 20 meq 11/23/18 09:00 11/28/18 08:26 K-Dur 20 PO 20 meq DAILY [facility] Administration Intake and Output 11/28/18 11/29/18 11/29/18 22:59 06:59 14:59 Intake Total 1440 260 20 Output Total 850 650 Balance 590 -390 20 Intake: IV 60 160 20 Sodium Chloride 0.9% 1, 60 160 20 000 ml @ 20 mls/hr IV . Q24H [facility] Rx#:[id number] Intake, IV Titration 500 Amount Sodium Chloride 0.9% 1, 500 000 ml @ 100 mls/hr IV . Q10H [facility] Rx#:[id number] Oral 880 100 Output: Urine 850 650 Other: Voiding Method Urinal Weight 68 kg 11/28/18 04:41 11/28/18 04:41
[2018-11-29] MEDS: BUDESONIDE 1 MG/2 ML NEBU INHALATION SCH ×2 (07:47→20:47)
[2018-11-29] MEDS: IPRATROPIUM-ALBUTEROL 3 ML NEB INHALATION SCH ×4 (07:47→20:47)
--- NOTE | 2018-11-29 08:09 | PN ---
PROGRESS NOTE Mr. Duncan is a 73-year-old male with a history of coronary artery disease who presented with symptoms of dizziness and progressive dyspnea, had torsade de pointes and had cardioversion performed. He is doing well this morning. He underwent cardiac catheterization that showed a patent VILLALBA to the LAD, patent saphenous vein graft to the obtuse marginal branch and occluded saphenous vein graft to the right coronary artery with subtotally occluded left main. He is doing well this morning. His breathing is stable. He denies any dizziness. He continued to be in sinus mechanism. He has no further episode of ventricular arrhythmia. He had episode of atrial fibrillation. He continues to be at this time on amlodipine 5 mg twice a day, Eliquis 2.5 mg twice a day, aspirin once a day, Lipitor 40 mg daily, hydralazine 100 mg 3 times a day, isosorbide mononitrate 120 mg daily and metoprolol tartrate 100 mg twice a day. PHYSICAL EXAMINATION: Blood pressure 140/50 with the heart rate in the 80s. LUNGS: Clear. HEART: Irregular, irregular. S1, S2. No S3 with systolic murmur. No diastolic murmur. No rub. ABDOMEN: Soft, nontender. RIGHT GROIN: No hematoma. EXTREMITIES: No edema. LAB DATA: Lab data revealed hemoglobin of 8. BUN and creatinine 35 and 1.52, potassium 4.1. IMPRESSION: 1. Coronary artery disease, status post coronary artery bypass grafting with occluded graft to the right coronary artery and subtotally occluded left main. 2. Episode of torsade de pointes with preserved systolic function. 3. Paroxysmal atrial fibrillation. 4. Chronic obstructive lung disease. 5. Severe chronic obstructive lung disease with prior history of smoking. 6. Hyperlipidemia. RECOMMENDATION: From the cardiac standpoint, he was evaluated yesterday by Dr. Goldstein and the recommendation to proceed with ICD implantation. The patient is in agreement to that. I will discuss with Dr. Goldstein to see if the procedure can be performed tomorrow. The patient can be transferred to the telemetry floor and his activity can be increased gradually. MMODL / IJN: [id number] /
[2018-11-29] MEDS ORDERED: SODIUM CHLORIDE 0.9% 1,000 ML IV SCH (08:30)
[2018-11-29] MEDS: FUROSEMIDE 40 MG TAB PO SCH ×2 (08:57→16:57)
[2018-11-29] MEDS: APIXABAN 2.5 MG TABLET PO SCH ×2 (08:57→20:06)
[2018-11-29] MEDS: SODIUM CHLORIDE 0.9% 1,000 ML IV SCH ×3 (08:57→12:16)
[2018-11-29] MEDS: ISOSORBIDE MONONITRATE ER 60 MG TAB.ER.24H PO SCH (08:57)
[2018-11-29] MEDS: ASPIRIN 81 MG PO SCH (08:58)
[2018-11-29] MEDS: hydrALAZINE HCL 50 MG TAB PO SCH ×3 (08:58→20:06)
[2018-11-29] MEDS: amLODIPine 5 MG TAB PO SCH ×2 (08:58→20:05)
[2018-11-29] MEDS: METOPROLOL TARTRATE 50 MG TAB PO SCH ×2 (08:58→20:06)
[2018-11-29] MEDS: POTASSIUM CHLORIDE ER 20 MEQ TAB.ER PO SCH (08:58)
[2018-11-29] MEDS: ATORVASTATIN 40 MG TAB PO SCH (08:59)
[2018-11-29] MEDS: LORazepam 0.5 MG TAB PO PRN ×2 (09:05→21:59)
--- NOTE | 2018-11-29 11:51 | P.PN ---
Subjective Progress Note Date: 11/29/18 Principal diagnosis: Acute torsade de pointes, and acute pulmonary edema This is a 73-year-old male patient with extensive cardiac history including coronary artery disease with previous bypass surgery, chronic A. fib, diastolic heart failure, hypertension and hyperlipidemia and COPD with chronic hypoxic respiratory failure maintained on oxygen at 4 L per minute nasal cannula with an FEV1 of 63% of predicted, diffusion capacity of 61% predicted and total lung capacity of 99% of predicted. The patient's developed an acute shortness of breath. He felt some chest discomfort subsequently was unable to breathe. He asked to be moved to the hospital. The patient was brought via EMS. The patient admitted that he was progressively getting more short of breath and he had difficulties and laying down flat. He was quite tachypneic at a time of admission and the blood pressure was also elevated. Chest x-ray showed cardiomegaly and pulmonary edema. The initial blood pressure was 180/94 in the patient's respiratory rate was 24. Based on all this, the patient was given diuretics. The patient was started on a nitroglycerin drip. The patient was placed on a BiPAP. 30 minutes while being in the emergency, the patient became acutely unresponsive. cardiac monitor technician showed polymorphic ventricular tachycardia consistent with torsade de pointes. Based on this, the patient wound received an immediate cardioversion with 200 J biphasic and the patient was also given 2 g of magnesium 1 g of calcium. The cardioversion was successful. EKG showed no significant abnormalities or prolongation of the QT. The patient is currently in normal sinus rhythm with PACs and the patient has a 70 her conduction delay, probably a left bundle branch block pattern. The first set of cardiac enzymes showed a troponin of 0.07. BNP was 4530. Creatinine is at 1.5 with a BUN of 36. The patient got transferred to the intensive care unit and while on the BiPAP. The patient is on a BiPAP pressure of 14/7 cm of water with an FiO2 of 40%. Is receiving Lasix 40 mg IV push every 12 hours. He is on long-term articulation with Xarelto 2.5 mg twice a day. He was started on clevidipine drip for tighter blood pressure control. He was also restarted back on hydralazine and metoprolol. Nitroglycerin drip is also running at 5 g per minute. No chest pain. No back pain. No arm pain. No neck pain. No further episodes of arrhythmias at this point in time. Echocardiogram is to follow. Cardiology consultation is to follow. On 11/23/2018 I'm seeing this patient for a follow-up. This morning the patient is feeling better and he seems to much more comfortable compared to yesterday. The patient was taken off the BiPAP which was set at a pressure of 14/7 cm of water and currently is on 40 of oxygen by nasal cannula which is very close to his baseline. He is free of any chest pains no nitroglycerin drip which is running at 60 g per minute. His BP is under better control while being on Cleviprex at the rate of 3 mg an hour. The patient diuresed well over the past 12 hours while being on IV Lasix. Creatinine is up to 1.9 and the patient will be taken off the diuretics. No cough or sputum production. No chest pain this morning. His cardiac rhythm is sinus and the patient remains on IV heparin. Cardiology is on the case and the plan is to proceed with a cardiac catheterization within the next 24-48 hours. Otherwise, no other significant events on this patient overnight. A repeat echo was ordered and the results are still pending for now. On 11/24/2018 I'm seeing this patient for a follow-up. He is quite comfortable this morning her 40s of oxygen nasal cannula. Overnight he had to be placed back on a BiPAP and this morning his back off. His son nitroglycerin drip which has been cut down to 40 g. He is also on Cleviprex drip which is running at 2 mg an hour. Blood pressure is still fluctuating. Creatinine is up to 1.9. History of any chest pain. No nausea. No vomiting. No abdominal pain. He has remained hemodynamically stable. Cardiac rhythm is sinus for now. He remains on IV heparin. Ultimately plan is to proceed with a cardiac catheterization. This was not done today as the patient's creatinine has been up to 1.9. We'll monitor the renal function will continue to follow. Repeat echo showed a preserved LV function with an ejection fraction of 50-55%. There is inferior hypokinesis, mild MR, moderate pulmonary hypertension with a PA pressure 46. On 11/25/2018, patient is being seen for a follow-up. The night was uneventful. Nevertheless this morning the patient became acutely shortness of breath and he developed chest pain. His still in nitroglycerin drip at 40 mics. He is also on IV heparin. He developed atrial fibrillation. He also became hypertensive. Note that the Cleviprex drip has been discontinued yesterday. Immediately was placed on a BiPAP at a pressure of 14/7 cm of water. He seems to much more rested for now. No nausea. No vomiting. No aspiration. Chest x-ray from this morning showed some cardiomegaly without signs of any pulmonary edema or failure. The hemoglobin today is at 7.7 with a white cell count of 11.2. Creatinine is improved and found to 1.43. He remains on aspirin. He remains on Plavix. He remains on beta blockers. On 11/26/2018 I'm seeing the patient for a follow-up. This morning the patient utilizes BiPAP again. His breathing is somewhat labored. As stated earlier the patient is having on and off some shortness of breath. Blood pressure remains somewhat elevated. The patient received all of his antihypertensive medications today. Is a bit anxious. Denies having any chest pain. Rhythm is sinus. Producing adequate amount of urine output. Creatinine is stable at 1.4. Awaiting final decision from cardiology regarding the need for cardiac catheterization. No headache. No altered mentation. No chest pain for this morning. Reevaluated today, 11/27, patient remains in the ICU, using nasal cannula, the BiPAP is at bedside. Patient is feeling a bit better, chest x-ray is showing interstitial edema, patient had his Lasix on hold earlier today, and he is scheduled to undergo cardiac catheterization. No fever no chills no hemoptysis no chest pain. Labs were reviewed, BUN is 30 creatinine is 1.54 which is close to his baseline. Reevaluated today on 11/28, remains in the ICU, intermittently on BiPAP, presently on nasal cannula. Patient denies any chest pain, no shortness of breath, no fever, no chills, no hemoptysis. Chest x-ray continues to show mild interstitial edema. Patient may undergo cardiac catheterization today however is going to be late today. His renal functioning is about the same. And that is basically close to his baseline. Creatinine in the range of 1.5. Patient was reevaluated today on 11/29/2018, remains in the ICU, he underwent cardiac catheterization yesterday. He was found to have patent VILLALBA to LAD, patent saphenous vein graft to the obtuse marginal branch and occluded saphenous vein graft to the right coronary artery with subtotal occlusion of the left main. Patient was advised to maximize medical therapy, no surgery was recommended patient was also advised to have ICD placement before he goes home and this would likely be done tomorrow. In the meantime the patient is comfortable, no significant arrhythmia noted in the last 24 hours, denies being short of breath, and denies any chest pain. Remains on amlodipine twice a day Eliquis, aspirin, Lipitor, hydralazine, isosorbide, and metoprolol 100 mg twice a day. Objective - Vital Signs Vital signs: Vital Signs Temp 98.2 F 11/29/18 08:00 Pulse 64 11/29/18 11:16 Resp 18 11/29/18 08:00 BP 170/75 11/29/18 08:00 Pulse Ox 99 11/29/18 08:00 Intake & Output 11/28/18 11/29/18 11/29/18 18:59 06:59 18:59 Intake Total 1661.349 820 40 Output Total 1300 800 400 Balance 361.349 20 -360 Weight 68 kg Intake: IV 170 220 40 Sodium Chloride 0.9% 1, 20 220 40 000 ml @ 20 mls/hr IV . Q24H [facility] Rx#:[id number] Intake, IV Titration 1011.349 100 Amount Heparin Sod,Pork in 0.45% 251.349 NaCl 25,000 unit In 0.45 % NaCl 1 250ml.bag @ 12 UNITS/KG/HR 8.165 mls/hr IV .Q24H [facility] Rx#: [id number] Sodium Chloride 0.9% 1, 400 100 000 ml @ 100 mls/hr IV . Q10H [facility] Rx#:[id number] Sodium Chloride 0.9% 1, 72 000 ml @ 20 mls/hr IV . Q24H [facility] Rx#:[id number] Sodium Chloride 0.9% 1, 288 000 ml In Empty Bag 1 bag @ 1 ML/KG/HR 72 mls/hr IV .[id number] [facility] Rx#: [id number] Oral 480 500 Output: Urine 1300 800 400 Other: Voiding Method Urinal Urinal # Voids 1 - Exam Physical Exam: Revealed a 73-year-old white male, pleasant, in no distress. Head: Atraumatic, normocephalic. HEENT:[Neck is supple.] [No neck masses.] [No thyromegaly.] [No JVD.] PERRLA, EOMI, no icterus. Moist mucous membranes. Chest: [Symmetrical chest expansions, crackles at the bases.] Cardiac Exam: [Normal S1 and S2, no S3 gallop, 2/6 systolic murmur thought the precordium. Abdomen: [Soft, nontender, no megaly, no rebound, no guarding, normal bowel sounds.] Extremities: [No clubbing, trace of bipedal edema,no cyanosis.] Neurological Exam: [No focal neurologic deficit.] Alert and oriented 3. Psychiatric: Normal mood, flat affect and normal mental status examination. - Labs CBC & Chem 7: 11/28/18 04:41 11/28/18 04:41 Assessment and Plan Assessment: Impression: 1 acute hypoxic respiratory failure secondary to pulmonary edema, diastolic congestive heart failure, and underlying COPD. 2 acute hypertensive emergency, resolved 3 acute torsade, polymorphic ventricular tachycardia and successful cardioversion 4 chronic atrial fibrillation 5 chronic anemia 6 moderate severe COPD 7 chronic chronic kidney disease stage III 8 degenerative joint disease 9 chronic back pain 10 degenerative joint disease 11 status post cardiac catheterization with findings as noted above. The plan is to maximize medical therapy, and ICD placement. Recommendation: Continue diuretics Continue bronchodilators Cardiac catheterization report was reviewed. Continue aspirin, metoprolol, Eliquis, Norvasc, Transfer patient to a stepdown unit/medical floor with telemetry, will likely undergo ICD placement in the next 24-48 hours. Continue GI and DVT prophylaxis. Overall prognosis is definitely poor and guarded. Time with Patient: Less than 30
--- NOTE | 2018-11-29 16:07 | P.PN ---
Subjective Progress Note Date: 11/29/18 Patient was seen and examined. No acute events overnight. Patient reports no complaints this morning. He denies any chest pain, shortness of breath or palpitations. No nausea or vomiting. No fever or chills. Tolerating diet well. Objective - Vital Signs Vital signs: Vital Signs Temp 98.2 F 11/29/18 12:00 Pulse 68 11/29/18 14:55 Resp 16 11/29/18 14:55 BP 169/65 11/29/18 14:55 Pulse Ox 99 11/29/18 14:55 Intake & Output 11/28/18 11/29/18 11/29/18 18:59 06:59 18:59 Intake Total 1661.349 820 662 Output Total 1300 800 400 Balance 361.349 20 262 Weight 68 kg Intake: IV 170 220 40 Sodium Chloride 0.9% 1, 20 220 40 000 ml @ 20 mls/hr IV . Q24H [facility] Rx#:[id number] Intake, IV Titration 1011.349 100 400 Amount Heparin Sod,Pork in 0.45% 251.349 NaCl 25,000 unit In 0.45 % NaCl 1 250ml.bag @ 12 UNITS/KG/HR 8.165 mls/hr IV .Q24H [facility] Rx#: [id number] Sodium Chloride 0.9% 1, 400 100 000 ml @ 100 mls/hr IV . Q10H [facility] Rx#:[id number] Sodium Chloride 0.9% 1, 72 000 ml @ 20 mls/hr IV . Q24H [facility] Rx#:[id number] Sodium Chloride 0.9% 1, 400 000 ml @ 50 mls/hr IV . Q20H [facility] Rx#:[id number] Sodium Chloride 0.9% 1, 288 000 ml In Empty Bag 1 bag @ 1 ML/KG/HR 72 mls/hr IV .[id number] [facility] Rx#: [id number] Oral 480 500 222 Output: Urine 1300 800 400 Other: Voiding Method Urinal Urinal # Voids 1 1 - Exam General: [non toxic], [no distress], [appears at stated age] Derm: [warm], [dry] Head: [atraumatic], [normocephalic], [symmetric] Eyes: [EOMI], [no lid lag], [anicteric sclera] Mouth: [no lip lesion], [mucus membranes moist] Cardiovascular: [S1S2 reg], [irregularly regular], [positive DP pulse bilateral] Lungs: [CTA bilateral], [no rhonchi, no rales] , [no accessory muscle use] Abdominal: [soft], [ nontender to palpation], [no guarding], [no appreciable organomegaly] Ext: [no gross muscle atrophy], [no edema], [no contractures] Neuro: [no focal neuro deficits] Psych: [Alert], [oriented], [appropriate affect] - Labs CBC & Chem 7: 11/28/18 04:41 11/28/18 04:41 Assessment and Plan Assessment: Non-ST elevation UT Cardiac arrest with ventricular fibrillation Anemia Chronic kidney disease stage III COPD without exacerbation Heart failure with EF 55%, chronic Paroxysmal atrial fibrillation Hypertension Echocardiogram showing new wall hypokinesis. Troponin elevated. Cardiac catheterization shows subtotal occluded left main, totally occluded mid right coronary, subtotal occlusion LAD and left circumflex, patent VILLALBA to LAD, patent saphenous vein to obtuse marginal, occluded saphenous vein to right coronary. Plans: Continue aspirin and Lipitor. Continue Plavix. Continue beta kandis. Plans for ICD placement tomorrow, nothing by mouth after midnight. Follow cardiology recommendations. Plans: Keep potassium greater than 4 magnesium greater than 2. Telemetry monitoring. Possible plans for CTA chest to rule out PE if cath is unrevealing. Follow cardiology recommendations. Hemoglobin 8, stable since admission. Normocytic. Likely secondary to his chronic kidney disease. Plans: Daily CBC. Transfuse if hemoglobin less than 7. Creatinine 1.52. At baseline. Plans: Avoid nephrotoxins. Daily BMP. Normal saline at 50 mL per hour. On 4 L home O2. Stable. Plans: DuoNeb as needed for shortness of breath and wheezing. Euvolemic. Plans: Continue beta kandis. Discuss WHIT inhibitor with PCP. Stable. Plans: Continue beta kandis. Continue Xarelto. BP 169/65. Plans: Continue hydralazine, Imdur, Norvasc and metoprolol. Monitor vitals, adjust medications as necessary. [Patient is post cardiac catheterization, aggressive medical management recommended. Cardiology plans for ICD placement tomorrow. Likely DC in 1-2 days.]
[2018-11-29] MEDS: ACETAMINOPHEN TAB 325 MG TAB PO PRN (20:06)
[2018-11-30] MEDS: PANTOPRAZOLE 40 MG TABLET PO SCH ×2 (06:05→17:46)
[2018-11-30] MEDS: ACETAMINOPHEN TAB 325 MG TAB PO PRN (06:05)
[2018-11-30] MEDS: HYDROcodone/APAP 5-325MG 1 EACH TAB PO PRN ×3 (06:06→21:23)
[2018-11-30] MEDS: LIDOCAINE-PRILOCAINE 2.5-2.5% CREAM 5 GM TUBE TOPICAL PRN (07:17)
[2018-11-30] MEDS: IPRATROPIUM-ALBUTEROL 3 ML NEB INHALATION SCH ×4 (07:37→20:07)
[2018-11-30] MEDS: BUDESONIDE 1 MG/2 ML NEBU INHALATION SCH ×2 (07:37→20:07)
[2018-11-30 07:59] LABS: Calcium 8.9 mg/dL (8.4-10.2); Potassium 4.1 mmol/L (3.5-5.1)
[2018-11-30] MEDS: amLODIPine 5 MG TAB PO SCH ×2 (08:27→21:23)
[2018-11-30] MEDS: ATORVASTATIN 40 MG TAB PO SCH (08:27)
[2018-11-30] MEDS: ASPIRIN 81 MG PO SCH (08:27)
[2018-11-30] MEDS: APIXABAN 2.5 MG TABLET PO SCH ×2 (08:27→21:23)
[2018-11-30] MEDS: FUROSEMIDE 40 MG TAB PO SCH (08:28)
[2018-11-30] MEDS: ISOSORBIDE MONONITRATE ER 60 MG TAB.ER.24H PO SCH (08:28)
[2018-11-30] MEDS: METOPROLOL TARTRATE 50 MG TAB PO SCH ×2 (08:28→21:22)
[2018-11-30] MEDS: hydrALAZINE HCL 50 MG TAB PO SCH ×4 (08:28→21:23)
[2018-11-30] MEDS: POTASSIUM CHLORIDE ER 20 MEQ TAB.ER PO SCH (08:29)
--- NOTE | 2018-11-30 11:28 | PN ---
PROGRESS NOTE Mr. Duncan is a 73-year-old male with a history of coronary artery disease who presented with evidence of torsade and had mild troponin elevation underwent cardiac catheterization revealed significant obstructive coronary artery disease with patent graft. He is scheduled to undergo ICD implantation today. He was initially anxious to go home today. I discussed with him the importance of staying in the hospital after the ICD implantation for at least until tomorrow and he is willing to do that. His cardiac catheterization revealed a patent VILLALBA to LAD, patent saphenous vein graft to the OM and occluded saphenous vein graft to the right coronary artery. He had no further cardiac arrhythmia except the atrial fibrillation, which has been documented in the past. He continued to be on amlodipine 5 mg twice a day, Eliquis 2.5 mg twice a day, aspirin once a day, Lipitor 40 mg daily, furosemide 40 mg twice a day, isosorbide mononitrate 120 mg daily and metoprolol tartrate 100 mg twice a day. PHYSICAL EXAMINATION: Blood pressure running in the 140s to 160s with the heart rate in the 80s. LUNGS: Clear. HEART: Irregular, irregular. S1, S2. No S3 with a systolic murmur. No diastolic murmur. ABDOMEN: Soft, nontender. EXTREMITIES: No edema. LAB DATA: Lab data revealed BUN and creatinine 28 and 1.62, potassium 4.1. IMPRESSION: 1. Torsade de pointes, scheduled for ICD implantation today. 2. History of coronary artery disease with recent non ST-elevation myocardial infarction. 3. Atrial fibrillation. 4. Prior history of chronic tobacco use and chronic obstructive pulmonary disease. 5. Hyperlipidemia. RECOMMENDATION: From the cardiac standpoint, we will continue present therapy. I will continue on the hydralazine, but increase the dose to 100 mg 4 times a day. Continue rest of medical regimen. Proceed with ICD implantation today and depending on his progress, further recommendation will be made. MMODL / IJN: [id number] /
[2018-11-30 12:05] VITALS: BMI 22.9
--- NOTE | 2018-11-30 12:10 | P.PN ---
Subjective Progress Note Date: 11/30/18 Principal diagnosis: Acute torsades de point, acute pulmonary edema This is a 73-year-old male patient with extensive cardiac history including coronary artery disease with previous bypass surgery, chronic A. fib, diastolic heart failure, hypertension and hyperlipidemia and COPD with chronic hypoxic respiratory failure maintained on oxygen at 4 L per minute nasal cannula with an FEV1 of 63% of predicted, diffusion capacity of 61% predicted and total lung capacity of 99% of predicted. The patient's developed an acute shortness of breath. He felt some chest discomfort subsequently was unable to breathe. He asked to be moved to the hospital. The patient was brought via EMS. The patient admitted that he was progressively getting more short of breath and he had difficulties and laying down flat. He was quite tachypneic at a time of admission and the blood pressure was also elevated. Chest x-ray showed cardiomegaly and pulmonary edema. The initial blood pressure was 180/94 in the patient's respiratory rate was 24. Based on all this, the patient was given diuretics. The patient was started on a nitroglycerin drip. The patient was placed on a BiPAP. 30 minutes while being in the emergency, the patient became acutely unresponsive. smelter charger showed polymorphic ventricular tachycardia consistent with torsade de pointes. Based on this, the patient w ound received an immediate cardioversion with 200 J biphasic and the patient was also given 2 g of magnesium 1 g of calcium. The cardioversion was successful. EKG showed no significant abnormalities or prolongation of the QT. The patient is currently in normal sinus rhythm with PACs and the patient has a 70 her conduction delay, probably a left bundle branch block pattern. The first set of cardiac enzymes showed a troponin of 0.07. BNP was 4530. Creatinine is at 1.5 with a BUN of 36. The patient got transferred to the intensive care unit and while on the BiPAP. The patient is on a BiPAP pressure of 14/7 cm of water with an FiO2 of 40%. Is receiving Lasix 40 mg IV push every 12 hours. He is on long-term articulation with Xarelto 2.5 mg twice a day. He was started on clevidipine drip for tighter blood pressure control. He was also restarted back on hydralazine and metoprolol. Nitroglycerin drip is also running at 5 g per minute. No chest pain. No back pain. No arm pain. No neck pain. No further episodes of arrhythmias at this point in time. Echocardiogram is to follow. Cardiology consultation is to follow. On 11/23/2018 I'm seeing this patient for a follow-up. This morning the patient is feeling better and he seems to much more comfortable compared to yesterday. The patient was taken off the BiPAP which was set at a pressure of 14/7 cm of water and currently is on 40 of oxygen by nasal cannula which is very close to his baseline. He is free of any chest pains no nitroglycerin drip which is running at 60 g per minute. His BP is under better control while being on Cleviprex at the rate of 3 mg an hour. The patient diuresed well over the past 12 hours while being on IV Lasix. Creatinine is up to 1.9 and the patient will be taken off the diuretics. No cough or sputum production. No chest pain this morning. His cardiac rhythm is sinus and the patient remains on IV heparin. Cardiology is on the case and the plan is to proceed with a cardiac catheterization within the next 24-48 hours. Otherwise, no other significant events on this patient overnight. A repeat echo was ordered and the results are still pending for now. On 11/24/2018 I'm seeing this patient for a follow-up. He is quite comfortable this morning her 40s of oxygen nasal cannula. Overnight he had to be placed back on a BiPAP and this morning his back off. His son nitroglycerin drip which has been cut down to 40 g. He is also on Cleviprex drip which is running at 2 mg an hour. Blood pressure is still fluctuating. Creatinine is up to 1.9. History of any chest pain. No nausea. No vomiting. No abdominal pain. He has remained hemodynamically stable. Cardiac rhythm is sinus for now. He remains on IV heparin. Ultimately plan is to proceed with a cardiac catheterization. This was not done today as the patient's creatinine has been up to 1.9. We'll monitor the renal function will continue to follow. Repeat echo showed a preserved LV function with an ejection fraction of 50-55%. There is inferior hypokinesis, mild MR, moderate pulmonary hypertension with a PA pressure 46. On 11/25/2018, patient is being seen for a follow-up. The night was uneventful. Nevertheless this morning the patient became acutely shortness of breath and he developed chest pain. His still in nitroglycerin drip at 40 mics. He is also on IV heparin. He developed atrial fibrillation. He also became hypertensive. Note that the Cleviprex drip has been discontinued yesterday. Immediately was placed on a BiPAP at a pressure of 14/7 cm of water. He seems to much more rested for now. No nausea. No vomiting. No aspiration. Chest x-ray from this morning showed some cardiomegaly without signs of any pulmonary edema or failure. The hemoglobin today is at 7.7 with a white cell count of 11.2. Creatinine is improved and found to 1.43. He remains on aspirin. He remains on Plavix. He remains on beta blockers. On 11/26/2018 I'm seeing the patient for a follow-up. This morning the patient utilizes BiPAP again. His breathing is somewhat labored. As stated earlier the patient is having on and off some shortness of breath. Blood pressure remains somewhat elevated. The patient received all of his antihypertensive medications today. Is a bit anxious. Denies having any chest pain. Rhythm is sinus. Producing adequate amount of urine output. Creatinine is stable at 1.4. Awaiting final decision from cardiology regarding the need for cardiac ca theterization. No headache. No altered mentation. No chest pain for this morning. Reevaluated today, 11/27, patient remains in the ICU, using nasal cannula, the BiPAP is at bedside. Patient is feeling a bit better, chest x-ray is showing interstitial edema, patient had his Lasix on hold earlier today, and he is scheduled to undergo cardiac catheterization. No fever no chills no hemoptysis no chest pain. Labs were reviewed, BUN is 30 creatinine is 1.54 which is close to his baseline. Reevaluated today on 11/28, remains in the ICU, intermittently on BiPAP, presently on nasal cannula. Patient denies any chest pain, no shortness of breath, no fever, no chills, no hemoptysis. Chest x-ray continues to show mild interstitial edema. Patient may undergo cardiac catheterization today however is going to be late today. His renal functioning is about the same. And that is basically close to his baseline. Creatinine in the range of 1.5. Patient was reevaluated today on 11/29/2018, remains in the ICU, he underwent cardiac catheterization yesterday. He was found to have patent VILLALBA to LAD, patent saphenous vein graft to the obtuse marginal branch and occluded saphenous vein graft to the right coronary artery with subtotal occlusion of the left main. Patient was advised to maximize medical therapy, no surgery was recommended patient was also advised to have ICD placement before he goes home and this would likely be done tomorrow. In the meantime the patient is comfortable, no significant arrhythmia noted in the last 24 hours, denies being short of breath, and denies any chest pain. Remains on amlodipine twice a day Eliquis, aspirin, Lipitor, hydralazine, isosorbide, and metoprolol 100 mg twice a day. On 11/30/2018 patient seen in follow-up on the selective care unit, he is resting in bed, he still states he has mild shortness of breath but no acute distress, remains on 5 L of oxygen with a pulse ox of 97%, afebrile, hemodynamically stable, no episodes of arrhythmias overnight, lung sounds reveal bibasilar crackles, no wheezes, no rhonchi, no cough or congestion, patient is scheduled for AICD placement later this afternoon, no new chest x-rays, today's labs have been reviewed, BNP was done showing electrolytes within normal limits, BUN of 28 and creatinine is 1.62. Patient is on oral diuretics, is maintaining negative fluid balance, the weight is stable, no lower extremity edema. Objective - Vital Signs Vital signs: Vital Signs Temp 97.5 F L 11/30/18 11:51 Pulse 67 11/30/18 11:51 Resp 16 11/30/18 11:51 BP 164/66 11/30/18 11:51 Pulse Ox 97 11/30/18 11:51 Intake & Output 11/29/18 11/30/18 11/30/18 18:59 06:59 18:59 Intake Total 662 Output Total 400 450 450 Balance 262 -450 -450 Weight 64.6 kg 64.6 kg Intake: IV 40 Sodium Chloride 0.9% 1, 40 000 ml @ 20 mls/hr IV . Q24H [facility] Rx#:[id number] Intake, IV Titration 400 Amount Sodium Chloride 0.9% 1, 400 000 ml @ 50 mls/hr IV . Q20H [facility] Rx#:[id number] Oral 222 Output: Urine 400 450 450 Other: Voiding Method Urinal Urinal Urinal # Voids 1 2 - Exam GENERAL EXAM: Alert, pleasant, 73-year-old white male, on 5 L of oxygen, with a pulse ox of 97%, comfortable in no apparent distress. HEAD: Normocephalic/atraumatic. EYES: Normal reaction of pupils, equal size. Conjunctiva pink, sclera white. NOSE: Clear with pink turbinates. THROAT: No erythema or exudates. NECK: No masses, no JVD, no thyroid enlargement, no adenopathy. CHEST: No chest wall deformity. Symmetrical expansion. LUNGS: Equal air entry with basilar crackles, but no wheeze, rhonchi or dullness. CVS: Regular rate and rhythm, normal S1 and S2, no gallops, no murmurs, no rubs ABDOMEN: Soft, nontender. No hepatosplenomegaly, normal bowel sounds, no guarding or rigidity. EXTREMITIES: No clubbing, no edema, no cyanosis, 2+ pulses and upper and lower extremities. MUSCULOSKELETAL: Muscle strength and tone normal. SPINE: No scoliosis or deformity SKIN: No rashes CENTRAL NERVOUS SYSTEM: Alert and oriented -3. No focal deficits, tone is normal in all 4 extremities. PSYCHIATRIC: Alert and oriented -3. Appropriate affect. Intact judgment and insight. - Labs CBC & Chem 7: 11/28/18 04:41 11/30/18 07:32 Labs: Abnormal Lab Results - Last 24 Hours (Table) 11/30/18 Range/Units 07:32 BUN 28 H (9-20) mg/dL Creatinine 1.62 H (0.66-1.25) mg/dL Glucose 130 H (74-99) mg/dL Assessment and Plan Plan: Assessment: 1 acute hypoxic respiratory failure secondary to pulmonary edema, diastolic congestive heart failure, and underlying COPD. 2 acute hypertensive emergency, resolved 3 acute torsade, polymorphic ventricular tachycardia and successful cardioversio n 4 chronic atrial fibrillation 5 chronic anemia 6 moderate severe COPD 7 chronic chronic kidney disease stage III 8 degenerative joint disease 9 chronic back pain 10 degenerative joint disease 11 status post cardiac catheterization with findings as noted above. The plan is to maximize medical therapy, and ICD placement. Plan: Continue diuretics, continue bronchodilators, she is scheduled for AICD this afternoon, continue aspirin, metoprolol Eliquis on Norvasc, follow cardiology recommendations, wean FiO2. I performed a history & physical examination of the patient and discussed their management with my nurse practitioner, Saray Galarza. I reviewed the nurse practitioner's note and agree with the documented findings and plan of care. Lung sounds are positive for diminished breath sounds and basilar rales. The findings and the impression was discussed with the patient. I attest to the documentation by the nurse practitioner. Time with Patient: Less than 30
[2018-11-30] MEDS ORDERED: ceFAZolin 1,000 MG in SODIUM CHLORIDE 0.9% IRRIGATIO 250 ML IRRIGATION ONE (12:17)
--- NOTE | 2018-11-30 13:02 | P.PN ---
Subjective Progress Note Date: 11/30/18 Principal diagnosis: non-ST elevation RI Patient was seen and examined. No acute events overnight. Patient with no complaints this morning. He denies any chest pain, shortness of breath or palpitations. No nausea or vomiting. No fever or chills. Looking forward to going home. Scheduled for ICD placement today. Objective - Vital Signs Vital signs: Vital Signs Temp 97.5 F L 11/30/18 11:51 Pulse 67 11/30/18 11:51 Resp 16 11/30/18 11:51 BP 164/66 11/30/18 11:51 Pulse Ox 97 11/30/18 11:51 Intake & Output 11/29/18 11/30/18 11/30/18 18:59 06:59 18:59 Intake Total 662 Output Total 400 450 450 Balance 262 -450 -450 Weight 64.6 kg 64.6 kg Intake: IV 40 Sodium Chloride 0.9% 1, 40 000 ml @ 20 mls/hr IV . Q24H [facility] Rx#:[id number] Intake, IV Titration 400 Amount Sodium Chloride 0.9% 1, 400 000 ml @ 50 mls/hr IV . Q20H [facility] Rx#:[id number] Oral 222 Output: Urine 400 450 450 Other: Voiding Method Urinal Urinal Urinal # Voids 1 2 - Exam General: [non toxic], [no distress], [appears at stated age] Derm: [warm], [dry] Head: [atraumatic], [normocephalic], [symmetric] Eyes: [EOMI], [no lid lag], [anicteric sclera] Mouth: [no lip lesion], [mucus membranes moist] Cardiovascular: [S1S2 reg], [regular], [positive DP pulse bilateral] Lungs: [CTA bilateral], [no rhonchi, no rales] , [no accessory muscle use] Abdominal: [soft], [ nontender to palpation], [no guarding], [no appreciable organomegaly] Ext: [no gross muscle atrophy], [no edema], [no contractures] Neuro: [no focal neuro deficits] Psych: [Alert], [oriented], [appropriate affect] - Labs CBC & Chem 7: 11/28/18 04:41 11/30/18 07:32 Labs: Abnormal Lab Results - Last 24 Hours (Table) 11/30/18 Range/Units 07:32 BUN 28 H (9-20) mg/dL Creatinine 1.62 H (0.66-1.25) mg/dL Glucose 130 H (74-99) mg/dL Assessment and Plan Assessment: Non-ST elevation RI Cardiac arrest with ventricular fibrillation Anemia Chronic kidney disease stage III COPD without exacerbation Heart failure with EF 55%, chronic Paroxysmal atrial fibrillation Hypertension Echocardiogram showing new wall hypokinesis. Cardiac catheterization shows subtotal occluded left main, totally occluded mid right coronary, subtotal occlusion LAD and left circumflex, patent VILLALBA to LAD, patent saphenous vein to obtuse marginal, occluded saphenous vein to right coronary. Plans: Continue aspirin and Lipitor. Continue Plavix. Continue beta kandis. Plans for ICD placement today. Follow cardiology recommendations. Plans: Keep potassium greater than 4 magnesium greater than 2. Telemetry mo nitoring. Possible plans for CTA chest to rule out PE if cath is unrevealing. Follow cardiology recommendations. Hemoglobin 8, stable since admission. Normocytic. Likely secondary to his chronic kidney disease. Plans: Daily CBC. Transfuse if hemoglobin less than 7. Creatinine 1.62. At baseline. Plans: Avoid nephrotoxins. Daily BMP. Encourage hydration by mouth. Normal saline at 50 mL per hour. On 4 L home O2. Stable. Plans: DuoNeb as needed for shortness of breath and wheezing. Pulmonology is following. Euvolemic. Plans: Continue beta kandis. Discuss WHIT inhibitor with PCP. Stable. Plans: Continue beta kandis. Continue Xarelto. BP 164/66. Plans: hydralazine increased to 100 mg by mouth 4 times a day. Continue Imdur 120 mg I mouth daily, metoprolol 100 mg by mouth twice a day. Monitor vitals, adjust medications as necessary. [Patient is post cardiac catheterization, aggressive medical management recommended. Cardiology plans for ICD placement today. DC planning based on Cardiology recommendations. Patient will go home on discharge, refusing home health.]
[2018-11-30] MEDS ORDERED: MIDAZOLAM 2 MG/2 ML VIAL ONE (13:51)
[2018-11-30] MEDS ORDERED: IV FLUID CONTINUATION 1,000 ML IV ONE (13:51)
[2018-11-30] MEDS ORDERED: fentaNYL (PF) 50 MCG/ML 2 ML AMP ONE (13:51)
[2018-11-30] MEDS ORDERED: KETAMINE 10 MG/ML 20 ML VIAL ONE (13:51)
[2018-11-30] MEDS ORDERED: PROPOFOL 10 MG/ML 20 ML VIAL IV ONE (13:51)
[2018-11-30] MEDS ORDERED: IOPAMIDOL-370 50ML BTL INJ ONE (14:05)
[2018-11-30] MEDS ORDERED: LIDOCAINE 1% INJ 10MG/ML (20 ML MDV) ONE ×2 (14:20)
[2018-11-30] MEDS: LIDOCAINE 1% INJ 10MG/ML (20 ML MDV) SQ ONE ×2 (14:29→14:37)
[2018-11-30] MEDS ORDERED: ACETAMINOPHEN TAB 325 MG TAB PO PRN (15:35)
--- NOTE | 2018-11-30 15:46 | P.PCN ---
Preoperative Diagnosis: Left upper extremity venogram 15 mL IV dye was injected in the left upper extremity and the left axillary, left subclavian and innominate an SCC veins were found patent Plan Proceed with dual-chamber ICD implant
[2018-11-30] MEDS ORDERED: ACETAMINOPHEN IV (For NPO) 1,000 MG in EMPTY BAG 1 BAG IVPB ONE (16:15)
[2018-11-30] MEDS: DOCUSATE 100 MG CAP PO PRN (21:22)
[2018-12-01] MEDS: SODIUM CHLORIDE 0.9% 1,000 ML IV SCH (00:07)
[2018-12-01] MEDS: HYDROcodone/APAP 5-325MG 1 EACH TAB PO PRN (05:34)
[2018-12-01] MEDS: PANTOPRAZOLE 40 MG TABLET PO SCH (05:34)
[2018-12-01] MEDS: BUDESONIDE 1 MG/2 ML NEBU INHALATION SCH (08:23)
[2018-12-01] MEDS: IPRATROPIUM-ALBUTEROL 3 ML NEB INHALATION SCH ×3 (08:24→16:14)
[2018-12-01] MEDS: amLODIPine 5 MG TAB PO SCH (08:32)
[2018-12-01] MEDS: ATORVASTATIN 40 MG TAB PO SCH (08:32)
[2018-12-01] MEDS: POTASSIUM CHLORIDE ER 20 MEQ TAB.ER PO SCH (08:32)
[2018-12-01] MEDS: ISOSORBIDE MONONITRATE ER 60 MG TAB.ER.24H PO SCH (08:32)
[2018-12-01] MEDS: APIXABAN 2.5 MG TABLET PO SCH (08:32)
[2018-12-01] MEDS: METOPROLOL TARTRATE 50 MG TAB PO SCH (08:32)
[2018-12-01] MEDS: ASPIRIN 81 MG PO SCH (08:32)
[2018-12-01] MEDS: hydrALAZINE HCL 50 MG TAB PO SCH ×2 (08:32→12:20)
[2018-12-01] MEDS ORDERED: FUROSEMIDE 40 MG TAB PO SCH (09:00)
--- NOTE | 2018-12-01 09:10 | XR ---
EXAMINATION TYPE: XR chest 1V portable DATE OF EXAM: 12/01/2018 COMPARISON: 11/28/2018 INDICATION: AICD TECHNIQUE: Single frontal view of the chest is obtained. FINDINGS: The heart size is mildly prominent. The pulmonary vasculature is normal. Minimal left pleural effusion at the costophrenic angles is not excluded. Right lower lobe infiltrate has improved. There is placement of an electronic device overlies left chest. No pneumothorax is evident. There i s a radiopaque density overlying the left upper quadrant of the abdomen. Sternotomy wires are present are CABG. IMPRESSION: 1. No pneumothorax post electronic device placement. 2. Minimal bilateral pleural fluid collections may be present
[2018-12-01] MEDS: DOCUSATE 100 MG CAP PO PRN (09:29)
[2018-12-01] MEDS: HYDROcodone/APAP 10-325MG 1 EACH TAB PO PRN ×2 (09:29→16:13)
--- NOTE | 2018-12-01 10:06 | CE ---
CARDIAC ELECTROPHYSIOLOGY REPORT Antonio Duncan is a 73-year-old male patient who had ventricular fibrillation and cardiac arrest in the hospital. His coronary arteries did not show any progression of coronary artery disease and he did not undergo any percutaneous revascularization. He has severe LV dysfunction. Please see the full note. He also has sinus bradycardia and paroxysmal atrial fibrillation with a controlled ventricular response. A dual-chamber ICD was implanted on account of sinus bradycardia. Patient was brought to the EP lab in a fasting state. Written informed consent was obtained prior to the procedure. The left shoulder area was prepped and draped as per protocol. The pectoral area was prepped and draped as per protocol and 1% lidocaine was used for local anesthesia. A 4 cm incision was made parallel to the deltopectoral groove, about 1.5 cm medial to it. The incision was carried down to the level of the pectoralis muscle. A subfascial pocket was made. Hemostasis was assured. The left axillary vein was accessed at 2 separate points under fluoroscopy and via appropriately- sized introducer sheaths 2 leads were positioned in the right heart. The atrial lead was a Medtronic model #5076-52, 52 cm in length and serial number [id number]. This was screwed in the right atrial appendage. The patient was in atrial fibrillation at that time. Pacing impedance 756 ohms, was 2.1 mV. The RV ICD lead was a 62 cm, DF4 lead Medtronic model #6935M, serial number #[id number]. This was screwed in the in the RV apex. R-waves were 5.6 mV, pacing impedance 768 ohms, pacing threshold 0.7 V at 0.5 millisecond. Ten volt test is negative. Both leads were secured to the underlying pectoralis fascia using 2 nonabsorbable sutures. Pocket was irrigated with antibiotic solution. Leads were connected to the generator (Evera MRI XT), The leads and the generator were then placed in subfascial pocket. The wound was closed in 3 layers and dressed per protocol. DFT TESTING UNDER ANESTHESIA: Shock and T-wave protocol was used to induce ventricular fibrillation this adequately and appropriately detected at least sensitivity and successfully internally defibrillated with a 10-joule shock. The charge time was 2.0 seconds. Shocking impedance 76 ohms. No post shock noise. There were no dropouts either. The device was then programmed to 2 zones of therapy, VT zone of 176 beats per minute, VF zone at 214 beats per minute. Appropriate antitachycardia pacing cardioversion defibrillation were programmed pacing at AAIR-DDDR 60 to 130 ppm with mode switch turned on. PLAN: Maximize beta kandis therapy and IV antibiotics. The patient tolerated the procedure well without any acute complications. MMKAREN / IJN: [id number] /
--- NOTE | 2018-12-01 10:12 | LTR ---
November 30, 2018 Re: Antonio Duncan Dear Dr. Smiley: I had the pleasure of seeing Mr. Antonio Duncan again in electrophysiology followup. As you know, Mr. Duncan had an episode of cardiac arrest requiring resuscitation. He has severe ischemic cardiomyopathy. Coronary arteries did not reveal any significant progression and therefore no revascularization was performed. In view of his sinus bradycardia, a dual-chamber ICD was implanted successfully. His beta blockers are being maximized further after this. Thank you for entrusting me in the care of your patient. Warm regards. Sincerely, Steven Goldstein MD . AMERICAL / SAMMY: [id number] /
--- NOTE | 2018-12-01 11:10 | P.DS ---
Providers Date of admission: 11/22/18 09:27 Expected date of discharge: 12/01/18 Attending physician: Connie Bernal DO Consults: 11/22/18 09:27 Consult Physician Routine Consulting Provider: Ray Denson Consult Reason/Comments: icu patient Do you want consulting provider notified?: Already Contacted Consult Physician Routine Consulting Provider: Steven Goldstein Consult Reason/Comments: chf, torsades Do you want consulting provider notified?: Yes Primary care physician: Víctor Smiley Hospital Course: Discharge Diagnosis: Non-ST segment elevated myocardial infarction Cardiac arrest with torsade de pointe Acute kidney injury on chronic kidney disease stage III COPD without exacerbation Acute on chronic hypoxic respiratory failure Chronic anemia at baseline Paroxysmal atrial fibrillation Hypertensive urgency Pulmonary edema Arthritis Chronic low back pain History of gastric ulcers Hospital Course: Patient is a 73-year-old male past medical history of atrial fibrillation, congestive heart failure with preserved ejection fraction of 55%, coronary artery disease with history of myocardial infarction and three-vessel bypass in 2006, hypertension, dyslipidemia, COPD, and chronic hypoxic respiratory failure on 4 L nasal cannula who presented to the ER via EMS for chest pain and shortness of breath. In the ER he underwent an extensive evaluation. Initially on arrival his pulse was 96 and blood pressure was 180/94. He was in acute respiratory distress and was subsequently placed on BiPAP therapy. Apparently bedside ultrasound was done in the ER consistent with pulmonary edema. He was started on a nitro drip. Approximately 30 minutes later he went into Ventricular fib and had loss of consciousness. He required defib 1 and he was given magnesium. Initial laboratory analysis showed an elevated white blood cell count at 13, hemoglobin of 10.4, creatinine of 1.5 w hich appears to be baseline, and glucose of 212. His potassium was normal at 4.4, magnesium slightly high at 2.4, and calcium was normal at 9.4. Initial BNP was elevated at 4530. Initial troponin was elevated at 0.070. Chest x-ray showed new basilar opacities consistent with multi focal pneumonia or atelectasis. He was given a dose of aspirin and Lasix. Arrangements were made for admission to the ICU. Cardiology and critical care were consulted. He was started on clevidipine gtt. he was attempted to be weaned off nitro and had recurrent chest pain and therefore nitro was restarted. He was also started on a heparin drip. Plan was for cardiac cath on 11/24. He has slight rise in creatinine on 11/23 likely secondary to forced diuresis. He was able to be weaned off BiPAP and was on his home oxygen. Creatinine continued to be elevated on 11/24 and therefore cardiac catheterization was delayed. His cr improved but the morning of 11/25 back to his baseline of 1.4. On 11/26 He was again having chest pain, also went into A fib, started back on Bipap and given morning medications and chest pain improved. EKG reviewed and had no new ischemic changes. She underwent cardiac catheterization on 11/28/18 which demonstrated a completely occluded SVG to RCA graft, subtotal occlusion of the left main, LAD, and left circumflex. He also had patent VILLALBA to LAD graft, and SVG to OM. Cardiology recommended to maximize medical therapy but no additional intervention at this point in time. He was then evaluated for possible ICD placement. Patient subsequently underwent ICD placement on 11/30/18. He tolerated the procedure well without any postoperative complications. He is cleared by cardiology for discharge. He has had multiple adjustments in his blood pressure medications. He was therefore set up with home health through [facility]. He will follow-up with the [facility]vice clinic and Dr. Smiley next week. He was having some pain at the ICD insertion site as anticipated and was given an RX for [place] 10/325 #15. Patient seen and examined at bedside. Vital signs reviewed and stable. General: non toxic, no distress, appears at stated age Derm: warm, dry Head: atraumatic, normocephalic, symmetric Eyes: EOMI, no lid lag, anicteric sclera Mouth: no lip lesion, mucus membranes moist Cardiovascular: S1S2 reg, no murmur, positive posterior tibial pulse bilateral, Lungs: CTA bilateral, no rhonchi, no rales , no accessory muscle use Abdominal: soft, nontender to palpation, no guarding, no appreciable organomegaly Ext: Left arm in sling, dressing intact over left shoulder no gross muscle atrophy, no edema, no contractures Neuro: CN II-XI grossly intact, no focal neuro deficits Psych: Alert, oriented, appropriate affect A total of 35 minutes of time were spent preparing this complex discharge summary . Pertinent Studies: Echocardiogram-ejection fraction 50-55%, inferior hypokinesis, moderate pulmonary hypertension Renal mmgqqwnaak-[id number] renal cystic disease Procedures: Cardiac catheterization 11/28-subtotally occluded left main, totally occluded mid right RCA, subtotal occlusion of the LAD and left circumflex, patent VILLALBA to LAD, patent SVG to OM, occluded SVG to RCA, severe peripheral vascular disease Patient Condition at Discharge: Stable Plan - Discharge Summary Discharge Rx Participant: No New Discharge Prescriptions: New hydrALAZINE HCL [Apresoline] 100 mg PO TID #90 tab Aspirin 81 mg PO DAILY chew Apixaban [Eliquis] 2.5 mg PO BID tablet Isosorbide Mononitrate ER [Imdur] 120 mg PO DAILY #60 tab.er.24h Furosemide [Lasix] 40 mg PO DAILY #30 tab Atorvastatin [Lipitor] 40 mg PO HS #30 tab Metoprolol Tartrate [Lopressor] 100 mg PO BID #60 tab HYDROcodone/APAP 10-325MG [[place] 10-325] 1 each PO Q4H PRN #15 tab PRN Reason: Moderate Pain amLODIPine [Norvasc] 5 mg PO BID #60 tab Continue Potassium Chloride [Klor-Con 20] 20 meq PO DAILY Nitroglycerin Sl Tabs [Nitrostat] 0.4 mg SUBLINGUAL Q5M PRN PRN Reason: Chest Pain Discontinued Furosemide [Lasix] 40 mg PO BID #60 tab hydrALAZINE HCL [Apresoline] 50 mg PO TID #90 tab Metoprolol Tartrate [Lopressor] 50 mg PO TID #90 tab Rivaroxaban [Xarelto] 2.5 mg PO BID Aspirin 325 mg PO DAILY Discharge Medication List Nitroglycerin Sl Tabs [Nitrostat] 0.4 mg SUBLINGUAL Q5M PRN 11/22/18 [History] Potassium Chloride [Klor-Con 20] 20 meq PO DAILY 11/22/18 [History] Apixaban [Eliquis] 2.5 mg PO BID tablet 12/01/18 [Rx] Aspirin 81 mg PO DAILY chew 12/01/18 [Rx] Atorvastatin [Lipitor] 40 mg PO HS #30 tab 12/01/18 [Rx] Furosemide [Lasix] 40 mg PO DAILY #30 tab 12/01/18 [Rx] HYDROcodone/APAP 10-325MG [[place] 10-325] 1 each PO Q4H PRN #15 tab 12/01/18 [Rx] Isosorbide Mononitrate ER [Imdur] 120 mg PO DAILY #60 tab.er.24h 12/01/18 [Rx] Metoprolol Tartrate [Lopressor] 100 mg PO BID #60 tab 12/01/18 [Rx] amLODIPine [Norvasc] 5 mg PO BID #60 tab 12/01/18 [Rx] hydrALAZINE HCL [Apresoline] 100 mg PO TID #90 tab 12/01/18 [Rx] Follow up Appointment(s)/Referral(s): [facility], [NON-STAFF] - Siri Arcos MD [STAFF PHYSICIAN] - 1 Week Víctor Smiley MD [Primary Care Provider] - 1-2 days (Follow-up with the device clinic in 5 days Follow-up with Dr. Arcos/[place] in 2-3 months) Patient Instructions/Handouts: Heart Failure (DC), Heart Healthy Diet (DC), Heart Catheterization (DC), Implantable Cardioverter Defibrillator (DC) Activity/Diet/Wound Care/Special Instructions: PATIENT EDUCATION MATERIAL Instructions following a heart rhythm device implant. 1. Keep dressing DRY for 5 DAYS. You may cover the area with Saran or Cling Wrap, prior to a shower. 2. The dressing will be removed in the Device Clinic at [facility]. Absorbable sutures were used to close the wound. 3. Avoid raising the left arm above the shoulder level. 4 week restriction 4. Avoid arm movements, like backscratching, rubbing the head, or pulling on a cord. 4 weeks restriction 5. Gentle range of motion movements of the shoulder, closest to the incision should be performed to avoid a frozen shoulder. (Pendulum exercises of the shoulder) 6. The opposite arm may be used freely. 7. Avoid driving for 7 days. 8. Avoid activities such as golfing, swimming, weed whacking, lifting more than 10 pounds weight, bowling, gymnastics and weight training/lifting. (6 weeks restriction) 9. Activities such as wood chopping with an axe, pull-ups in the gymnasium, power lifting, arc-welding, being close to home induction cooktops will always be a problem. 10. Arm sling is only a reminder not to raise the arm above the head. You do not need to keep the arm completely immobilized. Your free to move the arm and use it and for normal activities. In case of any problems, please call [facility], Mariaelena Collins, @ [phone], Attention: Device Clinic Device clinic follow-up in 5 days Follow-up with primary repairer evaporator in 2-3 months
[2018-12-01 11:26] LABS: Anisocytosis Slight; HCT 23.3 % (39.0-53.0); HGB 7.3 gm/dL (13.0-17.5); Hypochromasia Slight; MCH 25.6 pg (25.0-35.0); MCHC 31.1 g/dL (31.0-37.0); MCV 82.3 fL (80.0-100.0); Mean Platelet Volume 6.9; Platelet Count 306 k/uL (150-450); RBC 2.83 m/uL (4.30-5.90); RDW 17.3 % (11.5-15.5); WBC 10.3 k/uL (3.8-10.6)
[2018-12-01 11:48] LABS: Calcium 8.7 mg/dL (8.4-10.2)
--- NOTE | 2018-12-01 12:17 | PN ---
PROGRESS NOTE Mr. Duncan is a 73-year-old male who presented with torsade de pointe and progressive dyspnea and dizziness. He underwent a cardiac catheterization that revealed evidence patent VILLALBA to LAD, patent saphenous vein graft to the OM, and occluded saphenous vein graft to the right coronary artery, underwent ICD implantation yesterday by Dr. Goldstein. He is complaining of discomfort at the site of the implant. Otherwise, he denies any change in his breathing. He has mild dyspnea on exertion. No dizziness. No palpitation. He continues to be in atrial fibrillation with controlled ventricular response. He continues to be on amlodipine 5 mg twice a day, Eliquis 2.5 mg twice a day, aspirin 81 mg daily, Lipitor 40 mg daily, hydralazine 100 mg 4 times a day, isosorbide mononitrate 120 mg daily, metoprolol tartrate 100 mg twice a day. PHYSICAL EXAMINATION: Blood pressure 139/60 with the heart rate in the 70s. LUNGS: Clear. HEART: Irregular, irregular. S1, S2. No S3 with systolic murmur. No diastolic murmur. No rub. ABDOMEN: Soft, nontender. EXTREMITIES: No edema. Site of pacemaker with mild swelling. LAB DATA: Lab data revealed BUN and creatinine 28 and 1.62, potassium 4.1. IMPRESSION: 1. Status post ICD implantation for torsade de pointe. 2. History of coronary artery disease, status post coronary artery bypass grafting. 3. Hypertension. 4. Atrial fibrillation. 5. Hyperlipidemia. 6. Prior history of chronic tobacco use. 7. Chronic kidney disease. RECOMMENDATION: From the cardiac standpoint, we will await the interrogation of the device and his chest x-ray. If he is stable, I would expect he should be able to be discharged home today and follow up in about a week. MMODL / IJN: [id number] /
--- NOTE | 2018-12-01 12:27 | P.PN ---
Subjective Progress Note Date: 12/01/18 Principal diagnosis: Acute torsades de point, acute pulmonary edema This is a 73-year-old male patient with extensive cardiac history including coronary artery disease with previous bypass surgery, chronic A. fib, diastolic heart failure, hypertension and hyperlipidemia and COPD with chronic hypoxic respiratory failure maintained on oxygen at 4 L per minute nasal cannula with an FEV1 of 63% of predicted, diffusion capacity of 61% predicted and total lung capacity of 99% of predicted. The patient's developed an acute shortness of breath. He felt some chest discomfort subsequently was unable to breathe. He asked to be moved to the hospital. The patient was brought via EMS. The patient admitted that he was progressively getting more short of breath and he had difficulties and laying down flat. He was quite tachypneic at a time of admission and the blood pressure was also elevated. Chest x-ray showed cardiomegaly and pulmonary edema. The initial blood pressure was 180/94 in the patient's respiratory rate was 24. Based on all this, the patient was given diuretics. The patient was started on a nitroglycerin drip. The patient was placed on a BiPAP. 30 minutes while being in the emergency, the patient became acutely unresponsive. school bus monitor showed polymorphic ventricular tachycardia consistent with torsade de pointes. Based on this, the patient w ound received an immediate cardioversion with 200 J biphasic and the patient was also given 2 g of magnesium 1 g of calcium. The cardioversion was successful. EKG showed no significant abnormalities or prolongation of the QT. The patient is currently in normal sinus rhythm with PACs and the patient has a 70 her conduction delay, probably a left bundle branch block pattern. The first set of cardiac enzymes showed a troponin of 0.07. BNP was 4530. Creatinine is at 1.5 with a BUN of 36. The patient got transferred to the intensive care unit and while on the BiPAP. The patient is on a BiPAP pressure of 14/7 cm of water with an FiO2 of 40%. Is receiving Lasix 40 mg IV push every 12 hours. He is on long-term articulation with Xarelto 2.5 mg twice a day. He was started on clevidipine drip for tighter blood pressure control. He was also restarted back on hydralazine and metoprolol. Nitroglycerin drip is also running at 5 g per minute. No chest pain. No back pain. No arm pain. No neck pain. No further episodes of arrhythmias at this point in time. Echocardiogram is to follow. Cardiology consultation is to follow. On 11/23/2018 I'm seeing this patient for a follow-up. This morning the patient is feeling better and he seems to much more comfortable compared to yesterday. The patient was taken off the BiPAP which was set at a pressure of 14/7 cm of water and currently is on 40 of oxygen by nasal cannula which is very close to his baseline. He is free of any chest pains no nitroglycerin drip which is running at 60 g per minute. His BP is under better control while being on Cleviprex at the rate of 3 mg an hour. The patient diuresed well over the past 12 hours while being on IV Lasix. Creatinine is up to 1.9 and the patient will be taken off the diuretics. No cough or sputum production. No chest pain this morning. His cardiac rhythm is sinus and the patient remains on IV heparin. Cardiology is on the case and the plan is to proceed with a cardiac catheterization within the next 24-48 hours. Otherwise, no other significant events on this patient overnight. A repeat echo was ordered and the results are still pending for now. On 11/24/2018 I'm seeing this patient for a follow-up. He is quite comfortable this morning her 40s of oxygen nasal cannula. Overnight he had to be placed back on a BiPAP and this morning his back off. His son nitroglycerin drip which has been cut down to 40 g. He is also on Cleviprex drip which is running at 2 mg an hour. Blood pressure is still fluctuating. Creatinine is up to 1.9. History of any chest pain. No nausea. No vomiting. No abdominal pain. He has remained hemodynamically stable. Cardiac rhythm is sinus for now. He remains on IV heparin. Ultimately plan is to proceed with a cardiac catheterization. This was not done today as the patient's creatinine has been up to 1.9. We'll monitor the renal function will continue to follow. Repeat echo showed a preserved LV function with an ejection fraction of 50-55%. There is inferior hypokinesis, mild MR, moderate pulmonary hypertension with a PA pressure 46. On 11/25/2018, patient is being seen for a follow-up. The night was uneventful. Nevertheless this morning the patient became acutely shortness of breath and he developed chest pain. His still in nitroglycerin drip at 40 mics. He is also on IV heparin. He developed atrial fibrillation. He also became hypertensive. Note that the Cleviprex drip has been discontinued yesterday. Immediately was placed on a BiPAP at a pressure of 14/7 cm of water. He seems to much more rested for now. No nausea. No vomiting. No aspiration. Chest x-ray from this morning showed some cardiomegaly without signs of any pulmonary edema or failure. The hemoglobin today is at 7.7 with a white cell count of 11.2. Creatinine is improved and found to 1.43. He remains on aspirin. He remains on Plavix. He remains on beta blockers. On 11/26/2018 I'm seeing the patient for a follow-up. This morning the patient utilizes BiPAP again. His breathing is somewhat labored. As stated earlier the patient is having on and off some shortness of breath. Blood pressure remains somewhat elevated. The patient received all of his antihypertensive medications today. Is a bit anxious. Denies having any chest pain. Rhythm is sinus. Producing adequate amount of urine output. Creatinine is stable at 1.4. Awaiting final decision from cardiology regarding the need for cardiac ca theterization. No headache. No altered mentation. No chest pain for this morning. Reevaluated today, 11/27, patient remains in the ICU, using nasal cannula, the BiPAP is at bedside. Patient is feeling a bit better, chest x-ray is showing interstitial edema, patient had his Lasix on hold earlier today, and he is scheduled to undergo cardiac catheterization. No fever no chills no hemoptysis no chest pain. Labs were reviewed, BUN is 30 creatinine is 1.54 which is close to his baseline. Reevaluated today on 11/28, remains in the ICU, intermittently on BiPAP, presently on nasal cannula. Patient denies any chest pain, no shortness of breath, no fever, no chills, no hemoptysis. Chest x-ray continues to show mild interstitial edema. Patient may undergo cardiac catheterization today however is going to be late today. His renal functioning is about the same. And that is basically close to his baseline. Creatinine in the range of 1.5. Patient was reevaluated today on 11/29/2018, remains in the ICU, he underwent cardiac catheterization yesterday. He was found to have patent VILLALBA to LAD, patent saphenous vein graft to the obtuse marginal branch and occluded saphenous vein graft to the right coronary artery with subtotal occlusion of the left main. Patient was advised to maximize medical therapy, no surgery was recommended patient was also advised to have ICD placement before he goes home and this would likely be done tomorrow. In the meantime the patient is comfortable, no significant arrhythmia noted in the last 24 hours, denies being short of breath, and denies any chest pain. Remains on amlodipine twice a day Eliquis, aspirin, Lipitor, hydralazine, isosorbide, and metoprolol 100 mg twice a day. On 11/30/2018 patient seen in follow-up on the selective care unit, he is resting in bed, he still states he has mild shortness of breath but no acute distress, remains on 5 L of oxygen with a pulse ox of 97%, afebrile, hemodynamically stable, no episodes of arrhythmias overnight, lung sounds reveal bibasilar crackles, no wheezes, no rhonchi, no cough or congestion, patient is scheduled for AICD placement later this afternoon, no new chest x-rays, today's labs have been reviewed, BNP was done showing electrolytes within normal limits, BUN of 28 and creatinine is 1.62. Patient is on oral diuretics, is maintaining negative fluid balance, the weight is stable, no lower extremity edema. On 12/01/2018 patient seen in follow-up on [facility] care unit, he status post AICD implantation, this is postop day 1, clinically patient is stable, denies any dyspnea, remains on 5 L of oxygen with a pulse ox of 92-93%, no complaints of dyspnea, no chest pain, other than the incisional pain from the AICD implant. Clinically stable, no acute issues overnight, postop chest x-ray has been reviewed, showing no pneumothorax post electronic device placement, minimal bilateral pleural fluid collections. Patient is anticipated to be discharged home today, his been transitioned to oral Lasix, today's labs have been reviewed, no leukocytosis, white blood cell count of 10.3, hemoglobin is 7.3, serum sodium is 136, electrolytes are within normal limits, renal profile is re latively stable, with B UN of 25 and creatinine is 1.63. Objective - Vital Signs Vital signs: Vital Signs Temp 98 F 12/01/18 12:00 Pulse 70 12/01/18 12:00 Resp 22 12/01/18 12:00 BP 127/57 12/01/18 12:00 Pulse Ox 92 L 12/01/18 12:00 Intake & Output 11/30/18 12/01/18 12/01/18 18:59 06:59 18:59 Intake Total 700 220 50 Output Total 900 550 250 Balance -200 -330 -200 Weight 64.6 kg 66 kg Intake: IV 700 Intake, IV Titration 100 50 Amount ceFAZolin 2 gm In Sodium 100 50 Chloride 0.9% 50 ml @ 100 mls/hr IVPB Q6H [facility] Rx#: [id number] Oral 120 Output: Urine 900 550 250 Other: Voiding Method Urinal Urinal - Exam GENERAL EXAM: Alert, pleasant, 73-year-old white male, on 5 L of oxygen, with a pulse ox of 97%, comfortable in no apparent distress. HEAD: Normocephalic/atraumatic. EYES: Normal reaction of pupils, equal size. Conjunctiva pink, sclera white. NOSE: Clear with pink turbinates. THROAT: No erythema or exudates. NECK: No masses, no JVD, no thyroid enlargement, no adenopathy. CHEST: No chest wall deformity. Symmetrical expansion. Left upper chest incision is clean dry and intact, soft, tender, no hematoma LUNGS: Equal air entry with basilar crackles, but no wheeze, rhonchi or dullness. CVS: Regular rate and rhythm, normal S1 and S2, no gallops, no murmurs, no rubs ABDOMEN: Soft, nontender. No hepatosplenomegaly, normal bowel sounds, no guarding or rigidity. EXTREMITIES: No clubbing, no edema, no cyanosis, 2+ pulses and upper and lower extremities. MUSCULOSKELETAL: Muscle strength and tone normal. SPINE: No scoliosis or deformity SKIN: No rashes CENTRAL NERVOUS SYSTEM: Alert and oriented -3. No focal deficits, tone is normal in all 4 extremities. PSYCHIATRIC: Alert and oriented -3. Appropriate affect. Intact judgment and insight. - Labs CBC & Chem 7: 12/01/18 11:11 12/01/18 11:11 Labs: Abnormal Lab Results - Last 24 Hours (Table) 12/01/18 12/01/18 Range/Units 11:11 11:11 RBC 2.83 L (4.30-5.90) m/uL Hgb 7.3 L (13.0-17.5) gm/dL Hct 23.3 L (39.0-53.0) % RDW 17.3 H (11.5-15.5) % Sodium 136 L (137-145) mmol/L BUN 25 H (9-20) mg/dL Creatinine 1.63 H (0.66-1.25) mg/dL Glucose 144 H (74-99) mg/dL Assessment and Plan Plan: Assessment: 1 acute hypoxic respiratory failure secondary to pulmonary edema, diastolic congestive heart failure, and underlying COPD. 2 acute hypertensive emergency, resolved 3 acute torsade, polymorphic ventricular tachycardia and successful cardiovers ion, status post AICD placement, postop day 1 4 chronic atrial fibrillation 5 chronic anemia 6 moderate severe COPD 7 chronic chronic kidney disease stage III 8 degenerative joint disease 9 chronic back pain 10 degenerative joint disease 11 status post cardiac catheterization with findings as noted above. The plan is to maximize medical therapy, and ICD placement. Plan: Continue current plan of treatment, patient is stable from pulmonary perspective, status post AICD placement, postop day 1, no acute issues overnight, maintaining stable oxygenation on his usual 5 L of oxygen, postop erative chest x-ray has been reviewed, showing no acute findings surgical implantation of an AICD. Stable for discharge from pulmonary perspective. I performed a history & physical examination of the patient and discussed their management with my nurse practitioner, Saray Galarza. I reviewed the nurse practitioner's note and agree with the documented findings and plan of care. Lung sounds are positive for diminished breath sounds and basilar rales. The findings and the impression was discussed with the patient. I attest to the documentation by the nurse practitioner. Time with Patient: Less than 30
[2018-12-01 15:53] VITALS: BP 138/54; PULSE 75; RESP 16; TEMP 97.6
== END 2018-12-01 16:20 | disposition home health service (06) | DRG 224 ==
LOC: EC 08:05 → 2SICU 09:27 → 3SCARD 11-29 11:50
PROVIDERS: ADMIT Internal Medicine; ATTEND Internal Medicine
PROC: 5A09557 Assistance with Respiratory Ventilation, Greater than 96 Consecutive Hours, Continuous Positive Airway Pressure (ICD-10-PCS; 2018-11-22)
PROC: B2131ZZ Fluoroscopy of Multiple Coronary Artery Bypass Grafts using Low Osmolar Contrast (ICD-10-PCS; 2018-11-29 10:30)
PROC: 4A023N7 Measurement of Cardiac Sampling and Pressure, Left Heart, Percutaneous Approach (ICD-10-PCS; 2018-11-29 10:30)
PROC: B2111ZZ Fluoroscopy of Multiple Coronary Arteries using Low Osmolar Contrast (ICD-10-PCS; 2018-11-29 10:30)
PROC: B51N1ZZ Fluoroscopy of Left Upper Extremity Veins using Low Osmolar Contrast (ICD-10-PCS; principal; 2018-11-30 13:51)
PROC: 0JH609Z Insertion of Cardiac Resynchronization Defibrillator Pulse Generator into Chest Subcutaneous Tissue and Fascia, Open Approach (ICD-10-PCS; principal; 2018-11-30 13:51)
PROC: 02H63KZ Insertion of Defibrillator Lead into Right Atrium, Percutaneous Approach (ICD-10-PCS; principal; 2018-11-30 13:51)
PROC: 02HK3KZ Insertion of Defibrillator Lead into Right Ventricle, Percutaneous Approach (ICD-10-PCS; principal; 2018-11-30 13:51)
DX: I47.2 Ventricular tachycardia (principal); I21.4 Non-ST elevation (NSTEMI) myocardial infarction; J96.21 Acute and chronic respiratory failure with hypoxia; I50.33 Acute on chronic diastolic (congestive) heart failure; I13.0 Hypertensive heart and chronic kidney disease with heart failure and stage 1 through stage 4 chronic kidney disease, or unspecified chronic kidney disease; I16.1 Hypertensive emergency; I25.810 Atherosclerosis of coronary artery bypass graft(s) without angina pectoris; D62 Acute posthemorrhagic anemia; N17.9 Acute kidney failure, unspecified; Q61.9 Cystic kidney disease, unspecified; E78.5 Hyperlipidemia, unspecified; G89.29 Other chronic pain; I25.2 Old myocardial infarction; I27.20 Pulmonary hypertension, unspecified; I44.7 Left bundle-branch block, unspecified; I48.0 Paroxysmal atrial fibrillation; I49.01 Ventricular fibrillation; I73.9 Peripheral vascular disease, unspecified; Y63.6 Underdosing and nonadministration of necessary drug, medicament or biological substance; K21.9 Gastro-esophageal reflux disease without esophagitis; M19.90 Unspecified osteoarthritis, unspecified site; N18.3 Chronic kidney disease, stage 3 (moderate); T50.2X5A Adverse effect of carbonic-anhydrase inhibitors, benzothiadiazides and other diuretics, initial encounter; Z79.01 Long term (current) use of anticoagulants; Z79.02 Long term (current) use of antithrombotics/antiplatelets; Z79.82 Long term (current) use of aspirin; Z79.899 Other long term (current) drug therapy; Z87.11 Personal history of peptic ulcer disease; Z87.891 Personal history of nicotine dependence; Z95.5 Presence of coronary angioplasty implant and graft; Z95.810 Presence of automatic (implantable) cardiac defibrillator; Z95.820 Peripheral vascular angioplasty status with implants and grafts; Z99.81 Dependence on supplemental oxygen; Z87.01 Personal history of pneumonia (recurrent); Z98.42 Cataract extraction status, left eye; Z98.41 Cataract extraction status, right eye; J44.9 Chronic obstructive pulmonary disease, unspecified; I25.5 Ischemic cardiomyopathy; Z66 Do not resuscitate
CPT/HCPCS: 33249; 36410; 36415; 71045; 76770; 76937; 80048; 80053; 80061; 81003; 82330; 83735; 83880; 84484; 85025; 85027; 85610; 85730; 86850; 86900; 86901; 92960; 93005; 93306; 93459; 93641; 94640; 94660; 94760; 96365; 96368; 96375; 99285

== ENCOUNTER 2018-12-04 22:44 | Inpatient (IN) | payer MEDICARE, BC ==
[2018-12-04] MEDS ORDERED: NITROGLYCERIN OINT 1 INCH/GM PACKET TOPICAL STA (22:55)
[2018-12-04] MEDS ORDERED: NITROGLYCERIN SL TABS 0.4 MG TAB SUBLINGUAL STA (22:55)
[2018-12-04] MEDS ORDERED: MORPHINE SULFATE 4 MG/ML SYRINGE IV STA (22:55)
--- NOTE | 2018-12-04 23:04 | ED ---
SOB HPI - General Chief Complaint: Shortness of Breath Stated Complaint: [place] Source: patient, EMS Mode of arrival: EMS Limitations: physical limitation (Severe dyspnea) - History of Present Illness Initial Comments: This patient is a 73-year-old man who presents with severe dyspnea. Most of the history comes EMS as the patient is only able to get a couple of words out at a time. Patient indicates breathing worsened approximately 2 hours ago. His phoned EMS when he was not improving. EMS states pulse ox reading was in the 80s and they placed him on CPAP. denies chest pain. No leg pain or swelling. No fever or chills. MD Complaint: shortness of breath Onset/Timin -: hour(s) Severity: severe Consistency: constant Improves With: other (CPAP) Worsens With: lying flat Known History Of: COPD, congestive heart failure Associated Symptoms: orthopnea Treatments Prior to Arrival: NIPPV - Related Data Home Medications Medication Instructions Recorded Confirmed Nitroglycerin Sl Tabs [Nitrostat] 0.4 mg SUBLINGUAL Q5M PRN 11/22/18 12/04/18 Potassium Chloride [Klor-Con 20] 20 meq PO DAILY 11/22/18 12/04/18 Previous Rx's Medication Instructions Recorded Apixaban [Eliquis] 2.5 mg PO BID tablet 12/01/18 Aspirin 81 mg PO DAILY chew 12/01/18 Atorvastatin [Lipitor] 40 mg PO HS #30 tab 12/01/18 Furosemide [Lasix] 40 mg PO DAILY #30 tab 12/01/18 HYDROcodone/APAP 10-325MG [[place] 1 each PO Q4H PRN #15 tab 12/01/18 10-325] Isosorbide Mononitrate ER [Imdur] 120 mg PO DAILY #60 tab.er.24h 12/01/18 Metoprolol Tartrate [Lopressor] 100 mg PO BID #60 tab 12/01/18 amLODIPine [Norvasc] 5 mg PO BID #60 tab 12/01/18 hydrALAZINE HCL [Apresoline] 100 mg PO TID #90 tab 12/01/18 Allergies Allergy/AdvReac Type Severity Reaction Status Date / Time No Known Allergies Allergy Verified 12/04/18 23:19 Review of Systems ROS Statement: Those systems with pertinent positive or pertinent negative responses have been documented in the HPI. ROS Other: All systems not noted in ROS Statement are negative. Limitations: ROS unobtainable due to patients medical condition (Severe dyspnea) Past Medical History Past Medical History: Atrial Fibrillation, Coronary Artery Disease (CAD), Chest Pain / Angina, Heart Failure, COPD, Eye Disorder, GERD/Reflux, GI Bleed, H yperlipidemia, Hypertension, Myocardial Infarction ([place]), Osteoarthritis (OA), Pneumonia, Vascular Disorder Additional Past Medical History / Comment(s): Coronary artery disease with previous bypass surgery in 2006, previous coronary artery stenting in 2000, CHF with diastolic dysfunction and the patient is a preserved LV function based on recent echocardiogram, COPD with an FEV1 of 63% of predicted, hypertension, hyperlipidemia, acid reflux, osteoarthritis, previous history of right-sided pleural effusion secondary to CHF, recovered, chronic atrial fibrillation, hiatal hernia with previous history of gastric ulcer and the patient had a EGD and colonoscopy that was done in July 2017 indicating gastritis with negative H. pylori and the patient had some colonic polyps the cuff turner to be benign and a were resected via polypectomy. Patient has also hemorrhoids, chronic back pain, migraine, acid reflux, previous history of GI bleed, osteoarthritis, peripheral vascular disease Last Myocardial Infarction Date:: 2006 History of Any Multi-Drug Resistant Organisms: None Reported Past Surgical History: Appendectomy, Coronary Bypass/CABG, Heart Catheterization With Stent, Pacemaker Additional Past Surgical History / Comment(s): EGD/COLONOSCOPY WITH POLYPECTOMY, TRIPLE CABG 2006. PCI/STENT IN 2000. STENTS BILATERAL LEGS, BILATERAL CATARACT REMOVAL. Past Anesthesia/Blood Transfusion Reactions: No Reported Reaction Date of Last Stent Placement:: 2000 Past Psychological History: No Psychological Hx Reported Smoking Status: Former smoker Past Alcohol Use History: None Reported Past Drug Use History: None Reported - Past Family History Mother Family Medical History: Cancer, Osteoarthritis (OA) General Exam Limitations: no limitations General appearance: alert, in distress Head exam: Present: atraumatic, normocephalic Eye exam: Present: normal appearance. Absent: scleral icterus, conjunctival injection Respiratory exam: Present: respiratory distress, wheezes, accessory muscle use, decreased breath sounds, other (The left anterior chest wall there is what appears to be newly inserted pacer, with some ecchymosis. The incision site appears to be healing normally with no erythema, warmth or drainage.). Absent: rales, rhonchi, stridor Cardiovascular Exam: Present: regular rate, irregular rhythm. Absent: systolic murmur, diastolic murmur, rubs, gallop GI/Abdominal exam: Present: soft. Absent: distended, tenderness, guarding, rebound, rigid Extremities exam: Present: normal inspection, normal capillary refill. Absent: pedal edema, calf tenderness Back exam: Present: normal inspection. Absent: CVA tenderness (R), CVA tenderness (L) Neurological exam: Present: alert Skin exam: Present: warm, dry, intact, normal color. Absent: rash Course Vital Signs 12/04/18 12/04/18 12/05/18 22:47 23:00 00:00 Temperature 98.0 F Pulse Rate 82 68 70 Pulse Rate [ Solutions Operator ] Respiratory 37 H 22 17 Rate Blood Pressure 182/83 161/82 153/81 Blood Pressure [Right Arm Sitting] O2 Sat by Pulse 89 L 99 98 Oximetry 12/05/18 12/05/18 12/05/18 01:00 01:43 02:00 Temperature 98.2 F Pulse Rate 70 71 Pulse Rate [ 78 Solutions Operator ] Respiratory 18 22 20 Rate Blood Pressure 156/80 148/68 Blood Pressure 127/60 [Right Arm Sitting] O2 Sat by Pulse 98 93 L 98 Oximetry 12/05/18 12/05/18 02:59 03:22 Temperature 98.7 F Pulse Rate 63 Pulse Rate [ Solutions Operator ] Respiratory 16 Rate Blood Pressure 155/67 Blood Pressure [Right Arm Sitting] O2 Sat by Pulse 98 Oximetry Medical Decision Making - Medical Decision Making Patient is 73-year-old man presenting with acute onset of severe dyspnea. The patient does appear to be having CHF exacerbation. Given the recent procedure, d-dimer was checked and is found to be elevated. He had a duplex Doppler of the legs that is negative. In further review the patient's record it is seen that he has previously had elevated d-dimer. The patient maintains that he is taking his eliquis. His renal function does not allow for CT angiogram. At this point will defer to the admitting physician to see if they would like to have a VQ scan in the morning. At this point do not expect there is a PE as the patient does not have pain as he had with previous. Suspect that the d-dimer is elevated given the recent procedure. - Lab Data Result diagrams: 12/04/18 22:59 12/04/18 22:59 Lab Results 12/04/18 12/04/18 12/04/18 Range/Units 22:59 22:59 22:59 WBC 13.3 H (3.8-10.6) k/uL RBC 2.91 L (4.30-5.90) m/uL Hgb 7.3 L (13.0-17.5) gm/dL Hct 23.7 L (39.0-53.0) % MCV 81.5 (80.0-100.0) fL MCH 25.2 (25.0-35.0) pg MCHC 30.9 L (31.0-37.0) g/dL RDW 17.8 H (11.5-15.5) % Plt Count 418 (150-450) k/uL Neutrophils % 81 % Lymphocytes % 12 % Monocytes % 5 % Eosinophils % 0 % Basophils % 0 % Neutrophils # 10.8 H (1.3-7.7) k/uL Lymphocytes # 1.6 (1.0-4.8) k/uL Monocytes # 0.7 (0-1.0) k/uL Eosinophils # 0.1 (0-0.7) k/uL Basophils # 0.0 (0-0.2) k/uL Hypochromasia Moderate Poikilocytosis Slight Anisocytosis Slight PT 10.4 (9.0-12.0) sec INR 1.0 (<1.2) APTT 23.9 (22.0-30.0) sec D-Dimer 2.28 H (<0.60) mg/L FEU Sodium 139 (137-145) mmol/L Potassium 4.0 (3.5-5.1) mmol/L Chloride 102 (98-107) mmol/L Carbon Dioxide 21 L (22-30) mmol/L Anion Gap 16 mmol/L BUN 38 H (9-20) mg/dL Creatinine 1.95 H (0.66-1.25) mg/dL Est GFR (CKD-EPI)AfAm 38 (>60 ml/min/1.73 sqM) Est GFR (CKD-EPI)NonAf 33 (>60 ml/min/1.73 sqM) Glucose 143 H (74-99) mg/dL Calcium 9.1 (8.4-10.2) mg/dL Total Bilirubin 0.7 (0.2-1.3) mg/dL AST 22 (17-59) U/L ALT 11 L (21-72) U/L Alkaline Phosphatase 71 (38-126) U/L Troponin I (0.000-0.034) ng/mL NT-Pro-B Natriuret Pep pg/mL Total Protein 7.0 (6.3-8.2) g/dL Albumin 4.1 (3.5-5.0) g/dL 12/04/18 12/04/18 Range/Units 22:59 22:59 WBC (3.8-10.6) k/uL RBC (4.30-5.90) m/uL Hgb (13.0-17.5) gm/dL Hct (39.0-53.0) % MCV (80.0-100.0) fL MCH (25.0-35.0) pg MCHC (31.0-37.0) g/dL RDW (11.5-15.5) % Plt Count (150-450) k/uL Neutrophils % % Lymphocytes % % Monocytes % % Eosinophils % % Basophils % % Neutrophils # (1.3-7.7) k/uL Lymphocytes # (1.0-4.8) k/uL Monocytes # (0-1.0) k/uL Eosinophils # (0-0.7) k/uL Basophils # (0-0.2) k/uL Hypochromasia Poikilocytosis Anisocytosis PT (9.0-12.0) sec INR (<1.2) APTT (22.0-30.0) sec D-Dimer (<0.60) mg/L FEU Sodium (137-145) mmol/L Potassium (3.5-5.1) mmol/L Chloride (98-107) mmol/L Carbon Dioxide (22-30) mmol/L Anion Gap mmol/L BUN (9-20) mg/dL Creatinine (0.66-1.25) mg/dL Est GFR (CKD-EPI)AfAm (>60 ml/min/1.73 sqM) Est GFR (CKD-EPI)NonAf (>60 ml/min/1.73 sqM) Glucose (74-99) mg/dL Calcium (8.4-10.2) mg/dL Total Bilirubin (0.2-1.3) mg/dL AST (17-59) U/L ALT (21-72) U/L Alkaline Phosphatase (38-126) U/L Troponin I 0.110 H* (0.000-0.034) ng/mL NT-Pro-B Natriuret Pep 6770 pg/mL Total Protein (6.3-8.2) g/dL Albumin (3.5-5.0) g/dL - EKG Data -: EKG Interpreted by Me EKG shows normal: axis (Rightward axis), intervals (QRS duration is 122 ms, consistent with an intraventricular conduction delay. QTC is 474 ms, normal.), QRS complexes (Intraventricular conduction delay) Rate: normal (Rate approximately 82 bpm) Interpretation: nonspecific ST-T wave changes, other (Atrial fibrillation) Disposition Clinical Impression: Congestive heart failure, Dyspnea, Acute kidney injury Disposition: ADMITTED IP TO THIS [facility] Condition: Fair
[2018-12-04 23:06] LABS: Anisocytosis Slight; Basophils % (A) 0 %; Eosinophils # (A) 0.1 k/uL (0-0.7); Eosinophils % (A) 0 %; HCT 23.7 % (39.0-53.0); HGB 7.3 gm/dL (13.0-17.5); Hypochromasia Moderate; Lymphocytes # (A) 1.6 k/uL (1.0-4.8); Lymphocytes % (A) 12 %; MCH 25.2 pg (25.0-35.0); MCHC 30.9 g/dL (31.0-37.0); MCV 81.5 fL (80.0-100.0); Mean Platelet Volume 7.7; Monocytes # (A) 0.7 k/uL (0-1.0); Monocytes % (A) 5 %; Neutrophils # (A) 10.8 k/uL (1.3-7.7); Neutrophils % (A) 81 %; Platelet Count 418 k/uL (150-450); Poikilocytosis Slight; RBC 2.91 m/uL (4.30-5.90); RDW 17.8 % (11.5-15.5); WBC 13.3 k/uL (3.8-10.6)
[2018-12-04 23:17] LABS: Albumin 4.1 g/dL (3.5-5.0); Calcium 9.1 mg/dL (8.4-10.2); Total Bilirubin 0.7 mg/dL (0.2-1.3)
[2018-12-04 23:26] LABS: Partial Thromboplastin Time 23.9 sec (22.0-30.0); Prothrombin Time 10.4 sec (9.0-12.0)
[2018-12-04 23:34] LABS: D-Dimer 2.28 mg/L FEU (<0.60)
--- NOTE | 2018-12-04 23:47 | XR ---
EXAM: XR Chest, 1 View CLINICAL HISTORY: ITS.REASON XR Reason: dyspnea TECHNIQUE: Frontal view of the chest. COMPARISON: No relevant prior studies available. FINDINGS: Lungs: Unremarkable. No consolidation. Pleural space: Small bilateral pleural effusions. No pneumothorax. Heart: No pneumomediastinum. Mediastinum: Unremarkable. Bones/joints: No definite fracture. IMPRESSION: Small bilateral pleural effusions.
[2018-12-05] MEDS ORDERED: FUROSEMIDE 10 MG/ML 4 ML VIAL IV STA (00:01)
[2018-12-05] MEDS: FUROSEMIDE 10 MG/ML 4 ML VIAL IV SCH ×2 (00:20→10:18)
--- NOTE | 2018-12-05 01:47 | US ---
EXAM: US Duplex Bilateral Lower Extremity Veins CLINICAL HISTORY: ITS.REASON US Reason: elevated d-dimer TECHNIQUE: Real-time duplex ultrasound scan of the bilateral lower extremity veins integrating B-mode two-dimensional vascular structure, Doppler spectral analysis, color flow Doppler imaging and compression. COMPARISON: No relevant prior studies available. FINDINGS: Right deep veins: Unremarkable. No DVT in the right common femoral, femoral, proximal deep femoral or popliteal veins. The veins demonstrate normal color flow, are normally compressible, with normal phasic flow and/or augmentation response. Right superficial veins: Unremarkable. No thrombus in the visualized right great saphenous vein. Left deep veins: Unremarkable. No DVT in the left common femoral, femoral, proximal deep femoral or popliteal veins. The veins demonstrate normal color flow, are normally compressible, with normal phasic flow and/or augmentation response. Left superficial veins: Unremarkable. No thrombus in the visualized left great saphenous vein. Soft tissues: No suspicious findings. No popliteal cyst. IMPRESSION: Normal bilateral lower extremity duplex venous ultrasound.
[2018-12-05 06:46] LABS: Glucose,Whole Blood 147 mg/dL (75-99)
--- NOTE | 2018-12-05 08:59 | P.CRDCN ---
History of Present Illness Consult date: 12/05/18 Requesting physician: Andre Stallings Consult reason: shortness of breath Chief complaint: Shortness of breath History of present illness: This is a pleasant 73-year-old gentleman who follows regularly with Dr. Arcos in the office, he has a past medical history significant for coronary artery disease and prior bypass surgery as well as stent placement, severe peripheral arterial disease with prior peripheral revascularization, paroxysmal atrial fibrillation, hypertension, hyperlipidemia, who recently was in the hospital earlier this month had a witnessed cardiac arrest, with evidence of ventricular fibrillation, he underwent a dual-chamber ICD implantation by Dr. Goldstein. According to the patient, he has been quite short of breath, [facility], was seen by the nurse practitioner there. Apparently his discharge medications caused significant confusion between him and his , he had not been taking his Eliquis at home and was not provided a prescription on discharge, with minimal exertion the patient becomes extremely short of breath, but even at rest he states it's very difficult to breathe. Subsequently the patient came to the emergency room with these symptoms, and was admitted. His white blood cell count on admission was 13.3, hemoglobin 7.3, platelet count 418, d-dimer 2.2, sodium 139, potassium 4.0, BUN 38 and creatinine 1.9. Troponin 0.110, 0.107, BNP level 6770. Chest x-ray shows small bilateral pleural effusions. Bilateral venous duplex study negative for DVT. Blood pressure 158/70, heart rate in the 70s, afebrile. At the time of my examination this morning, the patient is quite short of breath just talk ing, patient had an echocardiogram with Doppler study performed on the of this month that revealed an ejection fraction of 50-55%, inferior hypokinesia, moderate pulmonary hypertension, the RVSP was measured at 46.9 at that time. No evidence of any pericardial effusion. Past Medical History Past Medical History: Atrial Fibrillation, Coronary Artery Disease (CAD), Chest Pain / Angina, Heart Failure, COPD, Eye Disorder, GERD/Reflux, GI Bleed, Hyperlipidemia, Hypertension, Myocardial Infarction ([place]), Osteoarthritis (OA), Pneumonia, Vascular Disorder Additional Past Medical History / Comment(s): Coronary artery disease with previous bypass surgery in 2006, previous coronary artery stenting in 2000, CHF with diastolic dysfunction and the patient is a preserved LV function based on recent echocardiogram, COPD with an FEV1 of 63% of predicted, hypertension, hyperlipidemia, acid reflux, osteoarthritis, previous history of right-sided pleural effusion secondary to CHF, recovered, chronic atrial fibrillation, hiatal hernia with previous history of gastric ulcer and the patient had a EGD and colonoscopy that was done in July 2017 indicating gastritis with negative H. pylori and the patient had some colonic polyps the wood turner to be benign and a were resected via polypectomy. Patient has also hemorrhoids, chronic back pain, migraine, acid reflux, previous history of GI bleed, osteoarthritis, peripheral vascular disease Last Myocardial Infarction Date:: 2006 History of Any Multi-Drug Resistant Organisms: None Reported Past Surgical History: Appendectomy, Coronary Bypass/CABG, Heart Catheterization With Stent, Pacemaker Additional Past Surgical History / Comment(s): EGD/COLONOSCOPY WITH POLYPECTOMY, TRIPLE CABG 2006. PCI/STENT IN 2000. STENTS BILATERAL LEGS, BILATERAL CATARACT REMOVAL. Past Anesthesia/Blood Transfusion Reactions: No Reported Reaction Date of Last Stent Placement:: 2000 Type of Cardiac Device: Permanent Pacemaker, AICD Device Placement Date:: 11/21/2018 Past Psychological History: No Psychological Hx Reported Smoking Status: Former smoker Past Alcohol Use History: None Reported Past Drug Use History: None Reported - Past Family History Mother Family Medical History: Cancer, Osteoarthritis (OA) Medications and Allergies Home Medications Medication Instructions Recorded Confirmed Type Nitroglycerin Sl Tabs [Nitrostat] 0.4 mg SUBLINGUAL Q5M PRN 11/22/18 12/04/18 History Potassium Chloride [Klor-Con 20] 20 meq PO DAILY 11/22/18 12/04/18 History Apixaban [Eliquis] 2.5 mg PO BID tablet 12/01/18 12/04/18 Rx Aspirin 81 mg PO DAILY chew 12/01/18 12/04/18 Rx Atorvastatin [Lipitor] 40 mg PO HS #30 tab 12/01/18 12/04/18 Rx Furosemide [Lasix] 40 mg PO DAILY #30 tab 12/01/18 12/04/18 Rx HYDROcodone/APAP 10-325MG [[place] 1 each PO Q4H PRN #15 tab 12/01/18 12/04/18 Rx 10-325] Isosorbide Mononitrate ER [Imdur] 120 mg PO DAILY #60 tab.er.24h 12/01/18 12/04/18 Rx Metoprolol Tartrate [Lopressor] 100 mg PO BID #60 tab 12/01/18 12/04/18 Rx amLODIPine [Norvasc] 5 mg PO BID #60 tab 12/01/18 12/04/18 Rx hydrALAZINE HCL [Apresoline] 100 mg PO TID #90 tab 12/01/18 12/04/18 Rx Allergies Allergy/AdvReac Type Severity Reaction Status Date / Time No Known Allergies Allergy Verified 12/04/18 23:19 Physical Exam Vitals: Vital Signs Temp Pulse Pulse Resp BP BP Pulse Ox 12/05/18 04:00 98 F 71 20 159/73 95 12/05/18 03:22 98.7 F 12/05/18 02:59 63 16 155/67 98 12/05/18 02:00 71 20 148/68 98 12/05/18 01:43 98.2 F 78 22 127/60 93 L 12/05/18 01:00 70 18 156/80 98 12/05/18 00:00 70 17 153/81 98 12/04/18 23:00 68 22 161/82 99 12/04/18 22:47 98.0 F 82 37 H 182/83 89 L Intake and Output 12/04/18 12/05/18 12/05/18 22:59 06:59 14:59 Intake Total 120 Output Total 400 400 Balance -280 -400 Intake: Oral 120 Output: Urine 400 400 Other: Voiding Method Urinal # Voids 1 Weight 68.175 kg 64.3 kg PHYSICAL EXAMINATION: GENERAL: 83-year-old gentleman in no acute distress at the time of my examination HEENT: Head is atraumatic, normocephalic. Pupils equal, round. Sclera anicteric. Conjunctiva are clear. Mucous membranes of the mouth are moist. Neck is supple. There is elevated jugular venous pressure. No carotid bruit is heard. HEART EXAMINATION: Heart S1-S2 irregularly irregular a systolic murmur is heard CHEST EXAMINATION: Lungs reveal diminished air entry to bilateral bases, right greater than the left. Site of lisinopril implantation, ecchymosis noted, moderate amount of swelling ABDOMEN: Soft, nontender. Bowel sounds are heard. No organomegaly noted. EXTREMITIES: 2+ peripheral pulses with no evidence of peripheral edema and no calf tenderness noted. NEUROLOGIC patient is awake, alert and oriented 3 . . Results 12/04/18 22:59 12/04/18 22:59 Cardiac Enzymes 12/04/18 12/04/18 12/05/18 Range/Units 22:59 22:59 06:37 AST 22 (17-59) U/L Troponin I 0.110 H* 0.107 H* (0.000-0.034) ng/mL Coagulation 12/04/18 Range/Units 22:59 PT 10.4 (9.0-12.0) sec APTT 23.9 (22.0-30.0) sec CBC 12/04/18 Range/Units 22:59 WBC 13.3 H (3.8-10.6) k/uL RBC 2.91 L (4.30-5.90) m/uL Hgb 7.3 L (13.0-17.5) gm/dL Hct 23.7 L (39.0-53.0) % Plt Count 418 (150-450) k/uL Comprehensive Metabolic Panel 12/04/18 Range/Units 22:59 Sodium 139 (137-145) mmol/L Potassium 4.0 (3.5-5.1) mmol/L Chloride 102 (98-107) mmol/L Carbon Dioxide 21 L (22-30) mmol/L BUN 38 H (9-20) mg/dL Creatinine 1.95 H (0.66-1.25) mg/dL Glucose 143 H (74-99) mg/dL Calcium 9.1 (8.4-10.2) mg/dL AST 22 (17-59) U/L ALT 11 L (21-72) U/L Alkaline Phosphatase 71 (38-126) U/L Total Protein 7.0 (6.3-8.2) g/dL Albumin 4.1 (3.5-5.0) g/dL Current Medications Generic Name Dose Route Start Last Admin Trade Name Freq PRN Reason Stop Dose Admin Hydrocodone Bitart/Acetaminophen 1 each 12/05/18 00:27 [place] 10 PO Q4H PRN Moderate Pain Amlodipine Besylate 5 mg 12/05/18 09:00 Norvasc PO BID [facility] Apixaban 2.5 mg 12/05/18 09:00 Eliquis PO BID [facility] Aspirin 81 mg 12/05/18 09:00 Aspirin PO DAILY [facility] Atorvastatin Calcium 40 mg 12/05/18 21:00 Lipitor PO HS [facility] Furosemide 40 mg 12/05/18 00:30 12/05/18 00:20 Lasix IV Not Given Q12H [facility] Hydralazine HCl 100 mg 12/05/18 09:00 Apresoline PO TID [facility] Isosorbide Mononitrate 120 mg 12/05/18 09:00 Imdur PO DAILY [facility] Metoprolol Tartrate 100 mg 12/05/18 09:00 Lopressor PO BID [facility] Nitroglycerin 0.5 inch 12/05/18 09:00 Nitro-Bid Oint TOPICAL QID [facility] Potassium Chloride 20 meq 12/05/18 09:00 K-Dur 20 PO DAILY [facility] Sodium Chloride 10 ml 12/05/18 09:00 Saline Flush IV BID [facility] Intake and Output 12/04/18 12/05/18 12/05/18 22:59 06:59 14:59 Intake Total 120 Output Total 400 400 Balance -280 -400 Intake: Oral 120 Output: Urine 400 400 Other: Voiding Method Urinal # Voids 1 Weight 68.175 kg 64.3 kg 12/04/18 22:59 12/04/18 22:59 EKG Interpretations (text) EKG shows atrial fibrillation with a controlled ventricular response and occasional paced beats noted nonspecific ST-T wave changes. Assessment and Plan Plan: Assessment and plan #1 symptoms of moderate to severe shortness of breath, evidence of bilateral pleural effusions on chest x-ray. D-dimer 2.28. BNP level 6770. Suggest mild congestive heart failure, diastolic in nature, LV function 50-55% on echo performed earlier this month. Rule out pulmonary embolism. #2 recent dual-chamber AICD for cardiac arrest/ventricular fibrillation #3 known history of coronary artery disease with prior bypass surgery, patient received a VILLALBA to the LAD, saphenous vein graft to the circumflex, saphenous vein graft to the right coronary artery, this was performed in 2007. Patient underwent a cardiac catheterization this month which revealed a subtotally occluded left main, totally occluded mid right, subtotally occluded LAD and circumflex, patent VILLALBA to the LAD, patent saphenous vein graft to the obtuse marginal, occluded SVG to the right coronary artery and severe peripheral vascular disease. #4 severe peripheral arterial disease, in 2018 patient underwent eye lateral iliac stenting #5 hypertension #6 hyperlipidemia #7 paroxysmal atrial fibrillation, patient had not been on anticoagulation, there was some confusion regarding his medications on this recent discharge #8 anemia, appears to be chronic since October 2017 #9 prior history of smoking, patient quit smoking in 2006 #10 non-VA troponin elevation, likely secondary to abnormal renal function, appears to be chronic for the patient #11 acute on chronic renal insufficiency Plan We will obtain a limited echocardiogram with Doppler study. Continue IV Lasix. Continue anticoagulation with Eliquis, continue metoprolol, statin, we will also obtain a VQ scan to rule out possibility of PE. Further recommendations to follow. DNP note has been reviewed, I agree with a documented findings and plan of care. Patient was seen and examined.
[2018-12-05] MEDS ORDERED: NITROGLYCERIN OINT 1 INCH/GM PACKET TOPICAL SCH (09:00)
[2018-12-05] MEDS: METOPROLOL TARTRATE 50 MG TAB PO SCH ×2 (09:57→22:04)
[2018-12-05] MEDS: POTASSIUM CHLORIDE ER 20 MEQ TAB.ER PO SCH (09:57)
[2018-12-05] MEDS: ASPIRIN 81 MG PO SCH (09:57)
[2018-12-05] MEDS: APIXABAN 2.5 MG TABLET PO SCH ×2 (09:57→22:05)
[2018-12-05] MEDS: amLODIPine 5 MG TAB PO SCH ×2 (09:57→22:04)
[2018-12-05] MEDS: hydrALAZINE HCL 50 MG TAB PO SCH ×3 (09:57→22:04)
[2018-12-05] MEDS: HYDROcodone/APAP 10-325MG 1 EACH TAB PO PRN ×3 (10:17→22:42)
[2018-12-05] MEDS: ISOSORBIDE MONONITRATE ER 60 MG TAB.ER.24H PO SCH (10:18)
[2018-12-05 11:00] VITALS: BMI 22.1
[2018-12-05] MEDS ORDERED: IPRATROPIUM-ALBUTEROL 3 ML NEB INHALATION PRN (11:56)
--- NOTE | 2018-12-05 12:32 | CONS ---
CONSULTATION PULMONARY/CRITICAL CARE CONSULTATION: DATE OF CONSULTATION: December 05, 2018 This is a 73-year-old male who presents to the emergency room via EMS with complaints of shortness of breath. Apparently when EMS arrived, he was able only to get a few words out at a time. The patient states that his breathing worsened 2 hours prior to calling EMS. Because he was not improving and because the saturations were in 80s, they placed him on CPAP and transferred him over to the emergency room to be evaluated. The patient was recently in the hospital. At that time, he had acute hypoxemic respiratory failure secondary to diastolic heart failure as well as underlying COPD exacerbation. At that time also, he had hypertensive emergency, polymorphic ventricular tachycardia, status post cardioversion and placement of AICD, chronic atrial fibrillation, chronic anemia, moderately severe COPD, stage 3 chronic kidney disease, DJD, chronic back pain, and previous cardiac catheterization. Anyway, the patient is currently on BiPAP at 12 and 6 and 40%. He apparently feels better. The patient is able to verbalize even though he has a mask in place. His chest x-ray on this admission appears to show primarily heart failure. CURRENT HOME MEDICATIONS: His current home medications include nitroglycerin sublingual, potassium chloride, Eliquis, aspirin, Lipitor, Lasix, [place], Imdur, Lopressor, Norvasc, and Apresoline. ALLERGIES: Allergies are denied. MEDICAL HISTORY: Medical history includes atrial fibrillation, CAD, chest pain/angina, heart failure, COPD, GERD, GI bleed, hyperlipidemia, hypertension, myocardial infarction, DJD, pneumonia, peripheral vascular occlusive disease, previous bypass grafting for CAD in 2006, coronary artery stenting 2000, hiatal hernia, gastric ulcer, gastritis, colonic polyps, hemorrhoids, chronic back pain, migraine cephalgia, and peripheral vascular disease. SURGICAL HISTORY: Surgical history includes among other things appendectomy, bypass grafting, heart catheterization with stent, pacemaker insertion, EGD, colonoscopy, lower extremity stents and bilateral cataract surgery. SOCIAL HISTORY: Positive for previous tobacco use. Does not smoke currently. Denies any illicit drug use or alcohol use. FAMILY HISTORY: Significant for mother with cancer and osteoarthritis. REVIEW OF SYSTEMS: CONSTITUTIONAL: Weakness. NEUROLOGIC: Negative. HEENT: Negative. CARDIOVASCULAR: Negative. PULMONARY: Shortness of breath. GI: Negative. : Negative. RHEUMATOLOGIC: Negative. IMMUNOLOGIC: Negative. ENDOCRINOLOGIC: Negative. DERMATOLOGIC: Negative. PHYSICAL EXAMINATION: VITAL SIGNS: Current vital signs are reviewed. Temperature is 98.4, heart rate 74 and irregular, respiratory rate 20, blood pressure 134/66, mean 88, five-liter saturation 90% to 95%. GENERAL: Appears in no acute distress. When we saw him, he was on BiPAP at 12/6 and 40%. He looked reasonably comfortable. HEENT: Examination is grossly unremarkable. BiPAP mask in place. NECK: Supple. Full range of motion. No adenopathy, thyromegaly or neck vein distention. CARDIOVASCULAR: Examination reveals irregular rhythm and rate. Heart rate mid 70s. S1, S2 normal. No S3, S4, murmur. Heart sounds are distant. LUNGS: Reveal bibasilar crackles. No wheezes or rhonchi. Breath sounds are diminished throughout. ABDOMEN: Soft. Bowel sounds are heard. EXTREMITIES: Are intact. Mild edema. No cyanosis or clubbing. SKIN: Without rash. NEUROLOGIC: Examination is difficult to assess but he does move all 4 extremities properly. LABS: Labs are reviewed. White count 13.3, hemoglobin 7.3, hematocrit 23.7, platelet count 418,000. PT, INR, PTT all normal. D-dimer 2.28. Sodium, potassium, chloride normal. CO2 is 21. Anion gap is 16. BUN and creatinine were 38 and 1.95. The patient's troponin was 0.110 and 0.107. N-terminal proBNP 6770. Chest x-ray shows findings are consistent with fluid overload and small bilateral effusions. Venous Dopplers show normal venous circulation without compressibility suggesting no evidence of DVT. MEDICATIONS: Medications are reviewed. ASSESSMENT: 1. Acute hypoxemic respiratory failure, requiring BiPAP therapy, primarily secondary to fluid overload/congestive heart failure with bilateral pleural effusions. 2. Recent admission for similar episode. 3. History of chronic obstructive pulmonary disease, not thought to be significantly active at this time. 4. Recent episode of acute hypertensive emergency. 5. History of polymorphic ventricular tachycardia, status post cardioversion and subsequent AICD placement. 6. History of chronic atrial fibrillation. 7. Chronic anemia. 8. Moderately severe chronic obstructive pulmonary disease. 9. Stage 3 chronic kidney disease. 10.Degenerative joint disease. 11.Chronic back pain. 12.Previous history of bypass grafting. 13.Multiple other medical problems and comorbidities. PLAN: Medications are reviewed. Additional recommendations and suggestions are forthcoming. I believe his breathing difficulty at this time is primarily related to cardiac disease/CHF. Additional recommendations and suggestions are forthcoming. We will continue to follow. Prognosis is guarded. MMODL / IJN: [id number] /
[2018-12-05 12:50] LABS: Glucose,Whole Blood 172 mg/dL (75-99)
[2018-12-05] MEDS: IPRATROPIUM-ALBUTEROL 3 ML NEB INHALATION SCH ×2 (12:51→19:25)
--- NOTE | 2018-12-05 13:07 | NM ---
EXAMINATION TYPE: NM pul perfusion DATE OF EXAM: 12/05/2018 COMPARISON: Lower extremity ultrasound dated 12/05/2018 HISTORY: Shortness of breath. Evaluate for pulmonary embolus. Following administration of 5.18 mCi Tc 99m MAA. Images obtained post injection. FINDINGS: There is a mildly enlarged cardiomediastinal silhouette. Focal defect is seen overlying the left lung apex laterally from the patient's pacemaker. Gradient effect of radiotracer is noted. No segmental p erfusion defect is seen. Ventilation portion of the examination was not able to be performed by the p atient. IMPRESSION: Although the patient could only complete the perfusion portion examination no findings to suspect pul monary embolism are seen.
--- NOTE | 2018-12-05 13:09 | ECHOF ---
Referral Reason:lv function, effusions MEASUREMENTS -------- HEIGHT: 170.2 cm WEIGHT: 64.0 kg BP: 159/73 RVIDd: 3.4 cm (< 3.3) MV E Ronaldo: 1.59 m/s MV DecT: 82 ms MV A Ronaldo: 1.02 m/s MV E/A Ratio: 1.55 RAP: 20.00 mmHg RVSP: 91.96 mmHg FINDINGS -------- Paced rhythm. Limited Study for pericardial effusion. Moderate tricuspid regurgitation present. There is severe pulmonary hypertension. The right ventr icular systolic pressure, as measured by Doppler, is 91.96mmHg. There is no pericardial effusion. CONCLUSIONS -------- 1. Paced rhythm. 2. Limited Study for pericardial effusion. 3. Moderate tricuspid regurgitation present. 4. There is severe pulmonary hypertension. 5. The right ventricular systolic pressure, as measured by Doppler, is 91.96mmHg. 6. There is no pericardial effusion. GROOVER AND STRIPER OPERATOR: Mariaa Anderson RDCS
[2018-12-05 15:22] LABS: Glucose,Whole Blood 263 mg/dL (75-99)
[2018-12-05] MEDS: ALPRAZolam 0.5 MG TAB PO PRN ×2 (15:28→22:42)
[2018-12-05 17:05] LABS: Glucose,Whole Blood 185 mg/dL (75-99)
[2018-12-05 20:48] LABS: Glucose,Whole Blood 156 mg/dL (75-99)
[2018-12-05] MEDS: ATORVASTATIN 40 MG TAB PO SCH (22:04)
--- NOTE | 2018-12-05 23:31 | P.HPIM ---
History of Present Illness H&P Date: 12/05/18 Chief Complaint: Short of breath History of presenting complaint: This is a pleasant 73-year-old patient with rather extensive medical history. Chronic stable medical conditions include coronary artery disease, GERD, hypertension, hyperlipidemia, osteoarthritis. Patient presents with a few days of progressive shortness of breath continued to get worse. Patient to stop sm oking about a year ago. Appetite is okay. No edema. Minimal cough. No fever no chills. No sputum production. Patient is felt a predominant CHF exacerbation with some element of COPD exacerbation. Patient is put on a BiPAP. Patient is able to get around the house. With a cane. is at the bedside in a wheelchair. Review of systems: GEN.: Tired EYES: None HEENT: None NECK: None RESPIRATORY: As above CARDIOVASCULAR: As above GASTROINTESTINAL: None GENITOURINARY: None MUSCULOSKELETAL: Pain in his joints LYMPHATICS: None HEMATOLOGICAL: None PSYCHIATRY: Anxiety NEUROLOGICAL: None Social history: Smoked a pack a day for over 60 years. Stopped about a year ago. . Does use a cane at home. Family history: Cancer and osteoarthritis Physical examination: VITAL SIGNS: 98, 82, 37, 1 82 x 83, 89% on BiPAP on presentation GENERAL: BiPAP is on, sitting up short of breath a bit anxious. EYES: Pupils equal. Conjunctiva normal. HEENT: External appearance of nose and ears normal, oral cavity grossly normal. NECK: JVD possibly raised; masses not palpable. HEART: First and second heart sounds are normal; no edema. LUNGS: Respiratory rate increased, diminished breath sounds prolonged expiration. ABDOMEN: Soft, nontender, liver spleen not palpable, no masses palpable. PSYCH: Alert and oriented x3; mood and affect anxiousl. NEUROLOGICAL: Cranial nerves grossly intact; no facial asymmetry, power and sensation grossly intact. LYMPHATICS: No lymph nodes palpable in the axilla and neck MUSCULOSKELETAL: Evidence of OA especially in the hands INVESTIGATIONS, reviewed in the clinical context: White count 13.3 hemoglobin 7.3 potassium 4 BUN 38 creatinine 1.95 Labs on December 01 showed a BUN of 25 and a creatinine 1.63 EKG tracing personally reviewed by me shows atrial flutter fibrillation with some ST segment changes Perfusion scan suspicion low for PE 2-D echo limited-moderate tricuspid regurgitation, severe pulmonary hypertension Cardiac catheterization on November [address] Arcos shows significant disease, for medical management Chest x-ray film personally reviewed by me shows cardiomegaly and some venous prominence that included the horizontal fissure 2-D echo from recently shows EF of 50-55% Assessment: -Acute severe COPD exacerbation and a current smoker -Acute hypoxic and hypercapnic respiratory failure due to COPD exacerbation -Acute on chronic congestive heart failure exacerbation from diastolic dysfunction EF 50-55% -Moderate tricuspid regurgitation, nontraumatic - Severe secondary pulmonary hypertension from probably COPD and CHF -Severe coronary artery disease, with history of bypass and stent, for medical management -Primary osteoarthritis -Persistent atrial flutter fibrillation, rate controlled -GERD -Hyperlipidemia -Essential hypertension -Severe peripheral arterial disease -GERD -Anxiety not otherwise specified, uncontrolled Plan: Patient is on IV Lasix. We'll increase the bronchodilators. Give IV Solu- Medrol and inhaled steroids. For anxiety home dose of Xanax to use when necessary. We'll also add Paxil for the same. Patient is using a BiPAP. Both cardiology and pulmonary were consulted. Care was discussed at length with the patient and at the bedside. Advanced care planning: This was discussed at length with the patient. The present time he takes his own decisions. He has no paperwork for the same. After lengthy discussion he decided to become a DO NOT RESUSCITATE status. Paperwork regarding advanced directives is being supplied to the patient. Also will be contacting the local network operations center technician to get the paperwork done. Total time spent in this was about 20-25 minutes. Past Medical History Past Medical History: Atrial Fibrillation, Coronary Artery Disease (CAD), Chest Pain / Angina, Heart Failure, COPD, Eye Disorder, GERD/Reflux, GI Bleed, Hyperli pidemia, Hypertension, Myocardial Infarction ([place]), Osteoarthritis (OA), Pneumonia, Vascular Disorder Additional Past Medical History / Comment(s): Coronary artery disease with previous bypass surgery in 2006, previous coronary artery stenting in 2000, CHF with diastolic dysfunction and the patient is a preserved LV function based on recent echocardiogram, COPD with an FEV1 of 63% of predicted, hypertension, hyperlipidemia, acid reflux, osteoarthritis, previous history of right-sided pleural effusion secondary to CHF, recovered, chronic atrial fibrillation, hiatal hernia with previous history of gastric ulcer and the patient had a EGD and colonoscopy that was done in July 2017 indicating gastritis with negative H. pylori and the patient had some colonic polyps the turnstile attendant to be benign and a were resected via polypectomy. Patient has also hemorrhoids, chronic back pain, migraine, acid reflux, previous history of GI bleed, osteoarthritis, peripheral vascular disease Last Myocardial Infarction Date:: 2006 History of Any Multi-Drug Resistant Organisms: None Reported Past Surgical History: Appendectomy, Coronary Bypass/CABG, Heart Catheterization With Stent, Pacemaker Additional Past Surgical History / Comment(s): EGD/COLONOSCOPY WITH POLYPECTOMY, TRIPLE CABG 2006. PCI/STENT IN 2000. STENTS BILATERAL LEGS, BILATERAL CATARACT REMOVAL. Past Anesthesia/Blood Transfusion Reactions: No Reported Reaction Date of Last Stent Placement:: 2000 Type of Cardiac Device: Permanent Pacemaker, AICD Device Placement Date:: 11/21/2018 Past Psychological History: No Psychological Hx Reported Smoking Status: Former smoker Past Alcohol Use History: None Reported Past Drug Use History: None Reported - Past Family History Mother Family Medical History: Cancer, Osteoarthritis (OA) Medications and Allergies Home Medications Medication Instructions Recorded Confirmed Type Nitroglycerin Sl Tabs [Nitrostat] 0.4 mg SUBLINGUAL Q5M PRN 11/22/18 12/04/18 History Potassium Chloride [Klor-Con 20] 20 meq PO DAILY 11/22/18 12/04/18 History Apixaban [Eliquis] 2.5 mg PO BID tablet 12/01/18 12/04/18 Rx Aspirin 81 mg PO DAILY chew 12/01/18 12/04/18 Rx Atorvastatin [Lipitor] 40 mg PO HS #30 tab 12/01/18 12/04/18 Rx Furosemide [Lasix] 40 mg PO DAILY #30 tab 12/01/18 12/04/18 Rx HYDROcodone/APAP 10-325MG [[place] 1 each PO Q4H PRN #15 tab 12/01/18 12/04/18 Rx 10-325] Isosorbide Mononitrate ER [Imdur] 120 mg PO DAILY #60 tab.er.24h 12/01/18 12/04/18 Rx Metoprolol Tartrate [Lopressor] 100 mg PO BID #60 tab 12/01/18 12/04/18 Rx amLODIPine [Norvasc] 5 mg PO BID #60 tab 12/01/18 12/04/18 Rx hydrALAZINE HCL [Apresoline] 100 mg PO TID #90 tab 12/01/18 12/04/18 Rx Allergies Allergy/AdvReac Type Severity Reaction Status Date / Time No Known Allergies Allergy Verified 12/04/18 23:19 Physical Exam Vitals: Vital Signs Temp Pulse Pulse Resp BP BP Pulse Ox 12/05/18 19:41 98.7 F 26 H 152/69 94 L 12/05/18 19:36 82 12/05/18 19:29 80 94 L 12/05/18 17:08 98.2 F 90 12/05/18 16:22 98.2 F 90 26 H 165/71 99 12/05/18 12:55 98.2 F 73 16 138/70 93 L 12/05/18 12:53 76 12/05/18 10:45 74 20 12/05/18 10:35 98.4 F 74 20 134/66 92 L 12/05/18 09:00 20 12/05/18 04:00 98 F 71 20 159/73 95 12/05/18 03:22 98.7 F 12/05/18 02:59 63 16 155/67 98 12/05/18 02:00 71 20 148/68 98 12/05/18 01:43 98.2 F 78 22 127/60 93 L 12/05/18 01:00 70 18 156/80 98 12/05/18 00:00 70 17 153/81 98 Intake and Output 12/05/18 12/05/18 12/06/18 14:59 22:59 06:59 Intake Total 180 360 Output Total 900 400 Balance -720 -40 Intake: Oral 180 360 Output: Urine 900 400 Other: Weight 64.3 kg Results CBC & Chem 7: 12/04/18 22:59 12/04/18 22:59 Labs: Abnormal Lab Results - Last 24 Hours (Table) 12/04/18 12/04/18 12/04/18 Range/Units 22:59 22:59 22:59 D-Dimer 2.28 H (<0.60) mg/L FEU Carbon Dioxide 21 L (22-30) mmol/L BUN 38 H (9-20) mg/dL Creatinine 1.95 H (0.66-1.25) mg/dL Glucose 143 H (74-99) mg/dL POC Glucose (mg/dL) (75-99) mg/dL ALT 11 L (21-72) U/L Troponin I 0.110 H* (0.000-0.034) ng/mL 12/05/18 12/05/18 12/05/18 Range/Units 06:16 06:37 12:47 D-Dimer (<0.60) mg/L FEU Carbon Dioxide (22-30) mmol/L BUN (9-20) mg/dL Creatinine (0.66-1.25) mg/dL Glucose (74-99) mg/dL POC Glucose (mg/dL) 147 H 172 H (75-99) mg/dL ALT (21-72) U/L Troponin I 0.107 H* (0.000-0.034) ng/mL 12/05/18 12/05/18 12/05/18 Range/Units 12:59 15:01 17:03 D-Dimer (<0.60) mg/L FEU Carbon Dioxide (22-30) mmol/L BUN (9-20) mg/dL Creatinine (0.66-1.25) mg/dL Glucose (74-99) mg/dL POC Glucose (mg/dL) 263 H 185 H (75-99) mg/dL ALT (21-72) U/L Troponin I 0.095 H* (0.000-0.034) ng/mL 12/05/18 Range/Units 20:47 D-Dimer (<0.60) mg/L FEU Carbon Dioxide (22-30) mmol/L BUN (9-20) mg/dL Creatinine (0.66-1.25) mg/dL Glucose (74-99) mg/dL POC Glucose (mg/dL) 156 H (75-99) mg/dL ALT (21-72) U/L Troponin I (0.000-0.034) ng/mL Thrombosis Risk Factor Assmnt - Choose All That Apply Each Factor Represents 1 point: Heart failure (<1month) Each Risk Factor Represents 3 Points: Age 75 years or older Thrombosis Risk Factor Assessment Total Risk Factor Score: 4 Thrombosis Risk Factor Assessment Level: Moderate Risk
[2018-12-06] MEDS: FUROSEMIDE 10 MG/ML 4 ML VIAL IV SCH ×2 (00:05→13:50)
[2018-12-06] MEDS: methylPREDNISolone SOD SUCCI 40 MG/ML 1 ML VIAL IV SCH ×3 (00:05→15:27)
[2018-12-06] MEDS: IPRATROPIUM-ALBUTEROL 3 ML NEB INHALATION SCH ×6 (00:20→19:19)
[2018-12-06] MEDS ORDERED: IPRATROPIUM-ALBUTEROL 3 ML NEB ONE (04:00)
[2018-12-06 06:27] LABS: Glucose,Whole Blood 199 mg/dL (75-99)
[2018-12-06] MEDS: BUDESONIDE 1 MG/2 ML NEBU INHALATION SCH ×2 (07:25→19:19)
[2018-12-06] MEDS: ASPIRIN 81 MG PO SCH (08:29)
[2018-12-06] MEDS: POTASSIUM CHLORIDE ER 20 MEQ TAB.ER PO SCH (08:29)
[2018-12-06] MEDS: METOPROLOL TARTRATE 50 MG TAB PO SCH ×2 (08:29→20:36)
[2018-12-06] MEDS: ISOSORBIDE MONONITRATE ER 60 MG TAB.ER.24H PO SCH (08:29)
[2018-12-06] MEDS: HYDROcodone/APAP 10-325MG 1 EACH TAB PO PRN ×2 (08:29→15:26)
[2018-12-06] MEDS: amLODIPine 5 MG TAB PO SCH ×2 (08:29→20:34)
[2018-12-06] MEDS: PARoxetine 20 MG TAB PO SCH (08:29)
[2018-12-06] MEDS: hydrALAZINE HCL 50 MG TAB PO SCH ×3 (08:29→20:34)
[2018-12-06] MEDS: ALPRAZolam 0.5 MG TAB PO PRN ×2 (08:29→15:27)
[2018-12-06] MEDS: APIXABAN 2.5 MG TABLET PO SCH ×2 (08:30→20:34)
--- NOTE | 2018-12-06 13:13 | PN ---
PROGRESS NOTE Mr. Duncan is a 73-year-old male with known history of coronary artery disease, history of chronic obstructive lung disease, atrial fibrillation, status post ICD implantation, history of peripheral vascular disease who presented with symptoms of progressive dyspnea. He is using the BiPAP today. He is feeling better. He seems to be stronger. He is denying any chest pain. No dizziness. No palpitation. No nausea. He continues to be on amlodipine 5 mg twice a day, Eliquis 2.5 mg twice a day, aspirin once a day, Lipitor 40 mg daily, furosemide 40 mg IV q.12 hours, hydralazine 100 mg 3 times a day, isosorbide mononitrate 120 mg daily, metoprolol tartrate 100 mg twice a day, potassium and Paxil. PHYSICAL EXAMINATION: Blood pressure 136/60 with a heart rate in the 80s. LUNGS: With decreased air exchange with a few crackles, no wheezes. HEART: Irregular, regular, S1, S2. No S3 with systolic murmur at the base. No diastolic murmur, no rub. ABDOMEN: Soft, nontender, positive bowel sounds. EXTREMITIES: No significant edema. IMPRESSION: 1. Progressive dyspnea with element of congestive heart failure on basis of diastolic dysfunction. 2. Chronic persistent atrial fibrillation, anticoagulated. 3. Status post ICD implantation. 4. Severe pulmonary hypertension with history of chronic obstructive lung disease. 5. History of coronary artery disease. 6. Peripheral vascular disease. RECOMMENDATION: Will continue the IV diuretic for another 24 hours. I will check his renal function tomorrow. If stable, will switch him to oral diuretics, increase his level of activity gradually and depending on his progress, further recommendations will be made. MMODL / IJN: [id number] /
[2018-12-06] MEDS: NITROGLYCERIN SL TABS 0.4 MG TAB SUBLINGUAL PRN ×2 (16:23→20:33)
--- NOTE | 2018-12-06 16:40 | P.PN ---
Subjective Progress Note Date: 12/06/18 Principal diagnosis: Acute hypoxemic respiratory failure requiring BiPAP therapy primarily secondary to acute exacerbation of congestive heart failure with systolic dysfunction On only 2018 patient seen in follow-up on selective care unit, he remains on BiPAP support, with pressures of 12 and 5 and 50%, patient is wearing intermittently, he has been tried on a nasal cannula, at 5 L, his pulse ox is 94 200%, he states his breathing is improving, significant cough or congestion, no wheezing, sounds reveal some diminished breath sounds bilaterally, afebrile, hemodynamically stable, denied any chest pain, patient continues on IV Lasix, nebulized bronchodilators, he is on oral Eliquis for history of A. fib, is on breathing treatments and IV Solu-Medrol. He is in negative fluid balance, no significant lower extremity edema. Patient had a VQ scan done which was incomp lete, and although the patient could not complete the perfusion portion, there were no findings to suspect pulmonary embolism. Objective - Vital Signs Vital signs: Vital Signs Temp 98.9 F 12/06/18 15:47 Pulse 79 12/06/18 15:47 Resp 16 12/06/18 15:47 BP 146/64 12/06/18 15:47 Pulse Ox 100 12/06/18 15:47 Intake & Output 12/05/18 12/06/18 12/06/18 18:59 06:59 18:59 Intake Total 540 118 Output Total 1300 650 400 Balance -760 -650 -282 Weight 64.3 kg 68.2 kg Intake: Oral 540 118 Output: Urine 1300 650 400 Other: Voiding Method Urinal Toilet - Exam GENERAL EXAM: Alert, pleasant, 73-year-old white male, on BiPAP support, with p ressures of 12 and 5, and FiO2 of 50% comfortable in no apparent distress. HEAD: Normocephalic/atraumatic. EYES: Normal reaction of pupils, equal size. Conjunctiva pink, sclera white. NOSE: Clear with pink turbinates. THROAT: No erythema or exudates. NECK: No masses, no JVD, no thyroid enlargement, no adenopathy. CHEST: No chest wall deformity. Symmetrical expansion. LUNGS: Equal air entry with dementia breath sounds at the bases, with limited rales, wheeze, rhonchi or dullness. CVS: Regular rate and rhythm, normal S1 and S2, no gallops, no murmurs, no rubs ABDOMEN: Soft, nontender. No hepatosplenomegaly, normal bowel sounds, no guarding or rigidity. EXTREMITIES: No clubbing, no edema, no cyanosis, 2+ pulses and upper and lower extremities. MUSCULOSKELETAL: Muscle strength and tone normal. SPINE: No scoliosis or deformity SKIN: No rashes CENTRAL NERVOUS SYSTEM: Alert and oriented -3. No focal deficits, tone is normal in all 4 extremities. PSYCHIATRIC: Alert and oriented -3. Appropriate affect. Intact judgment and insight. - Labs CBC & Chem 7: 12/04/18 22:59 12/04/18 22:59 Labs: Abnormal Lab Results - Last 24 Hours (Table) 12/05/18 12/05/18 12/06/18 Range/Units 17:03 20:47 06:23 POC Glucose (mg/dL) 185 H 156 H 199 H (75-99) mg/dL Assessment and Plan Plan: Assessment: #1. Acute dyspnea, acute on chronic hypoxemic respiratory failure due to acute exacerbation of chronic congestive heart failure with severely impaired left ventricle systolic function #2. Chronic obstructive pulmonary disease, no active is stable at this time #3. Recent hospitalization for acute exacerbation of CHF #4. History of polymorphic ventricular tachycardia, status post cardioversion and subsequent AICD placement #5. History of moderately severe chronic obstructive pulmonary disease #6. Recent episode of acute hypertensive emergency #7. History of chronic atrial fibrillation on Eliquis #8. Chronic anemia #9. Stage III chronic kidney disease #10. Degenerative joint disease #11. Chronic back pain #12. Previous history of bypass grafting #13. Multiple other medical problems and comorbidities Plan: We'll continue with IV steroids, IV diuretics, nebulized bronchodilators, may continue BiPAP support as needed, patient is tolerating nasal cannula trials, breathing easier overall, no complaints of chest pain, no dizziness, no p alpitation, states he is feeling better today. He continues on oral anticoagulation, cardiology is following, and maximizing patient's medical treatment. No acute issues overnight, wean FiO2. Accurate intake and output, daily weights, daily labs, We'll continue to follow I performed a history & physical examination of the patient and discussed their management with my nurse practitioner, Saray Galarza. I reviewed the nurse practitioner's note and agree with the documented findings and plan of care. Lung sounds are positive for basilar rales.. The findings and the impression was discussed with the patient. I attest to the documentation by the nurse practitioner. Time with Patient: Less than 30
[2018-12-06 18:06] LABS: Glucose,Whole Blood 290 mg/dL (75-99)
[2018-12-06 20:17] LABS: Glucose,Whole Blood 291 mg/dL (75-99)
[2018-12-06] MEDS: ATORVASTATIN 40 MG TAB PO SCH (20:34)
[2018-12-06] MEDS: INSULIN ASPART (NovoLOG) 100 UNIT/ML VIAL SQ SCH (20:51)
--- NOTE | 2018-12-06 23:33 | P.PN ---
Progress Note - Text Progress Note Date: 12/06/18 Chief Complaint: Short of breath Interval history: This is a pleasant 73-year-old patient with rather extensive medical history. Chronic stable medical conditions include coronary artery disease, GERD, hypertension, hyperlipidemia, osteoarthritis. Patient presents with a few days of progressive shortness of breath continued to get worse. Patient to stop smoking about a year ago. Appetite is okay. No edema. Minimal cough. No fever no chills. No sputum production. Patient is felt a predominant COPD exacerbation with some CHF exacerbation. Patient is put on a BiPAP. Patient is able to get around the house. With a cane. Today-patient feeling better today. Using a BiPAP. Also started on Paxil. Has a lot of anxiety yesterday which is much settled down. Did tolerate some diet. Review of systems: Was done for constitutional, cardiovascular, GI, pulmonary. relevant finding as above Active Medications Hydrocodone Bitart/Acetaminophen ([place] 10) 1 each PO Q4H PRN PRN Reason: Moderate Pain Last Admin: 12/06/18 15:26 Dose: 1 each Documented by: Albuterol/Ipratropium (Duoneb 0.5 Mg-3 Mg/3 Ml Soln) 3 ml INHALATION RT-TID PRN PRN Reason: Shortness Of Breath Or Wheezing Albuterol/Ipratropium (Duoneb 0.5 Mg-3 Mg/3 Ml Soln) 3 ml INHALATION RT-Q4H [facility] Last Admin: 12/06/18 19:19 Dose: 3 ml Documented by: Alprazolam (Xanax) 0.5 mg PO QID PRN PRN Reason: Anxiety Last Admin: 12/06/18 15:27 Dose: 0.5 mg Documented by: Amlodipine Besylate (Norvasc) 5 mg PO BID [facility] Last Admin: 12/06/18 20:34 Dose: 5 mg Documented by: Apixaban (Eliquis) 2.5 mg PO BID [facility] Last Admin: 12/06/18 20:34 Dose: 2.5 mg Documented by: Aspirin (Aspirin) 81 mg PO DAILY [facility] Last Admin: 12/06/18 08:29 Dose: 81 mg Documented by: Atorvastatin Calcium (Lipitor) 40 mg PO HS [facility] Last Admin: 12/06/18 20:34 Dose: 40 mg Documented by: Budesonide (Pulmicort) 1 mg INHALATION RT-BID [facility] Last Admin: 12/06/18 19:19 Dose: 1 mg Documented by: Furosemide (Lasix) 40 mg IV Q12H [facility] Last Admin: 12/06/18 13:50 Dose: 40 mg Documented by: Hydralazine HCl (Apresoline) 100 mg PO TID [facility] Last Admin: 12/06/18 20:34 Dose: 100 mg Documented by: Insulin Aspart (Novolog) 0 unit SQ ACHS [facility]; Protocol Last Admin: 12/06/18 20:51 Dose: 9 unit Documented by: Isosorbide Mononitrate (Imdur) 120 mg PO DAILY [facility] Last Admin: 12/06/18 08:29 Dose: 120 mg Documented by: Methylprednisolone Sodium Succinate (Solu-Medrol) 40 mg IV Q8HR [facility] Last Admin: 12/06/18 15:27 Dose: 40 mg Documented by: Metoprolol Tartrate (Lopressor) 100 mg PO BID [facility] Last Admin: 12/06/18 20:36 Dose: 100 mg Documented by: Nitroglycerin (Nitrostat) 0.4 mg SUBLINGUAL Q5M PRN PRN Reason: Chest Pain Last Admin: 12/06/18 20:33 Dose: 0.4 mg Documented by: Paroxetine HCl (Paxil) 20 mg PO DAILY [facility] Last Admin: 12/06/18 08:29 Dose: 20 mg Documented by: Potassium Chloride (K-Dur 20) 20 meq PO DAILY [facility] Last Admin: 12/06/18 08:29 Dose: 20 meq Documented by: Sodium Chloride (Saline Flush) 10 ml IV BID [facility] Last Admin: 12/06/18 20:37 Dose: 10 ml Documented by: Physical examination: VITAL SIGNS: 98.2, 88, 18, 136/66, 93% on 5 L GENERAL: BiPAP is on, sitting up short of breath for less anxious EYES: Pupils equal. Conjunctiva normal. HEENT: External appearance of nose and ears normal, oral cavity grossly normal. NECK: JVD possibly raised; masses not palpable. HEART: First and second heart sounds are normal; no edema. LUNGS: Respiratory rate increased, diminished breath sounds prolonged expiration. ABDOMEN: Soft, nontender, liver spleen not palpable, no masses palpable. PSYCH: Alert and oriented x3; mood and affect , less anxiousl. INVESTIGATIONS, reviewed in the clinical context: Accu-Cheks and today noted Admission tests White count 13.3 hemoglobin 7.3 potassium 4 BUN 38 creatinine 1.95 Labs on December 01 showed a BUN of 25 and a creatinine 1.63 EKG tracing personally reviewed by me shows atrial flutter fibrillation with some ST segment changes Perfusion scan suspicion low for PE 2-D echo limited-moderate tricuspid regurgitation, severe pulmonary hypertension Cardiac catheterization on November [address] Arcos shows significant disease, for medical management Chest x-ray film personally reviewed by me shows cardiomegaly and some venous prominence that included the horizontal fissure 2-D echo from recently shows EF of 50-55% Assessment: -Acute severe COPD exacerbation in a current smoker, improving -Acute hypoxic and hypercapnic respiratory failure due to COPD exacerbation -Acute on chronic congestive heart failure exacerbation from diastolic dysfunction EF 50-55%, improved -Moderate tricuspid regurgitation, nontraumatic - Severe secondary pulmonary hypertension from probably COPD and CHF -Severe coronary artery disease, with history of bypass and stent, for medical management -Primary osteoarthritis -Persistent atrial flutter fibrillation, rate controlled -GERD -Hyperlipidemia -Essential hypertension -Severe peripheral arterial disease -GERD -Anxiety not otherwise specified, uncontrolled, doing better -Chronic kidney disease stage III probably from nephrosclerosis Plan: Care was discussed with the patient. On IV Lasix per cardiology. Also in IV Solu-Medrol. Improving. Repeat electrolytes in the morning. Patient told to sit up in a chair. Encouraged to ambulate.
[2018-12-07] MEDS: methylPREDNISolone SOD SUCCI 40 MG/ML 1 ML VIAL IV SCH ×3 (01:25→17:18)
[2018-12-07] MEDS: FUROSEMIDE 10 MG/ML 4 ML VIAL IV SCH (01:25)
[2018-12-07] MEDS: IPRATROPIUM-ALBUTEROL 3 ML NEB INHALATION SCH ×7 (04:02→23:21)
[2018-12-07] MEDS: HYDROcodone/APAP 10-325MG 1 EACH TAB PO PRN ×6 (04:33→23:14)
[2018-12-07] MEDS: ALPRAZolam 0.5 MG TAB PO PRN ×3 (04:33→23:13)
[2018-12-07 06:28] LABS: Glucose,Whole Blood 239 mg/dL (75-99)
[2018-12-07 06:55] LABS: Glucose,Whole Blood 238 mg/dL (75-99)
[2018-12-07] MEDS: INSULIN ASPART (NovoLOG) 100 UNIT/ML VIAL SQ SCH ×4 (07:05→17:19)
[2018-12-07 07:48] LABS: Calcium 8.9 mg/dL (8.4-10.2); Potassium 4.2 mmol/L (3.5-5.1)
[2018-12-07] MEDS: METOPROLOL TARTRATE 50 MG TAB PO SCH ×2 (08:35→20:06)
[2018-12-07] MEDS: hydrALAZINE HCL 50 MG TAB PO SCH ×3 (08:35→23:14)
[2018-12-07] MEDS: ISOSORBIDE MONONITRATE ER 60 MG TAB.ER.24H PO SCH (08:35)
[2018-12-07] MEDS: ASPIRIN 81 MG PO SCH (08:36)
[2018-12-07] MEDS: PARoxetine 20 MG TAB PO SCH (08:36)
[2018-12-07] MEDS: amLODIPine 5 MG TAB PO SCH ×2 (08:36→20:06)
[2018-12-07] MEDS: APIXABAN 2.5 MG TABLET PO SCH ×2 (08:36→20:06)
[2018-12-07] MEDS: POTASSIUM CHLORIDE ER 20 MEQ TAB.ER PO SCH (08:38)
[2018-12-07] MEDS: BUDESONIDE 1 MG/2 ML NEBU INHALATION SCH ×2 (08:41→19:30)
--- NOTE | 2018-12-07 10:38 | XR ---
EXAMINATION TYPE: XR chest 1V portable DATE OF EXAM: 12/07/2018 COMPARISON: 12/04/2018 HISTORY: Shortness of breath TECHNIQUE: Single frontal view of the chest is obtained. FINDINGS: There is improved aeration of the lungs with improved now minimal pulmonary vascular conge stion and perihilar airspace disease. Probable component of fibrosis with reticular opacities lateral ly and underlying COPD. Post CABG changes are seen of the chest with multilead left-sided cardiac dev ice and enlarged cardiac mediastinal silhouette. Right minor intrafissural fluid has resolved. Very t race pleural effusions blunt the costophrenic angles. Diffuse osseous demineralization is noted. IMPRESSION: Improving aeration of the lungs with now minimal pulmonary vascular congestion and nearl y resolved perihilar opacities. Trace pleural effusions remain.
--- NOTE | 2018-12-07 11:32 | PN ---
PROGRESS NOTE Mr. Duncan is a 73-year-old male who has a history of coronary artery disease, history of atrial fibrillation, chronic obstructive lung disease, history of peripheral vascular disease who presented with symptoms of progressive dyspnea. He is feeling better today. His breathing is better. He denies any chest pain. He continues to have cough, no dizziness. No palpitation. He denies any nausea. He continues to be at this time on amlodipine 5 mg twice a day, Eliquis 2.5 mg twice a day, aspirin once a day, Lipitor 40 mg daily, Lasix 40 mg IV q.12 hours, isosorbide mononitrate 120 mg daily, metoprolol tartrate 100 mg twice a day, potassium supplement. PHYSICAL EXAMINATION: Blood pressure 127/50 with a heart rate in 70s. LUNGS: With decreased air exchange, no wheezes. HEART: Irregular, regular,. S1, S2. No S3 with systolic murmur, no diastolic murmur, no rub. ABDOMEN: Soft, nontender. EXTREMITIES: No edema noted. LAB DATA: Lab data revealed BUN and creatinine 16 and 2.06, potassium 4.2. IMPRESSION: 1. Symptoms of progressive dyspnea with element of congestive heart failure with preserved systolic function with underlying chronic obstructive lung disease. 2. History of coronary artery disease. 3. History of atrial fibrillation. 4. Status post ICD implant. 5. History of anemia. 6. Chronic kidney disease. RECOMMENDATION: From the cardiac standpoint, I will switch him to oral diuretic. Continue the rest of his medical regimen. If follow his renal function closely and depending on his progress, further recommendation will be made. MMODL / IJN: [id number] /
--- NOTE | 2018-12-07 11:32 | P.PN ---
Subjective Progress Note Date: 12/07/18 Principal diagnosis: Acute hypoxic respiratory failure secondary to an acute exacerbation of chronic systolic congestive heart failure. The patient is seen today 12/07/2018 in follow-up on the selective care unit. He is awake and alert in no acute distress. Resting fairly comfortably in bed. He was off the BiPAP earlier this morning on 5 L nasal cannula. He did have oxygen saturations in the lower 80s along with chest discomfort. He is placed back on BiPAP currently 12/5 and 50% FiO2 and O2 saturations are in the 90s now. He denies any chest discomfort currently. Sodium 136. Potassium 4.2. Creatinine 2.06. Currently on DuoNeb inhalations, Pulmicort inhalations, IV Solu-Medrol. He's been transitioned to oral diuretics. Anticoagulated with Eliquis. Objective - Vital Signs Vital signs: Vital Signs Temp 97.8 F 12/07/18 09:01 Pulse 72 12/07/18 09:45 Resp 20 12/07/18 09:01 BP 127/59 12/07/18 09:01 Pulse Ox 96 12/07/18 09:01 Intake & Output 12/06/18 12/07/18 12/07/18 18:59 06:59 18:59 Intake Total 118 240 237 Output Total 400 800 Balance -282 -560 237 Weight 66.2 kg Intake: Oral 118 240 237 Output: Urine 400 800 Other: Voiding Method Toilet Toilet Urinal - Exam GENERAL EXAM: Alert, pleasant, 73-year-old male patient, on BiPAP support, with pressures of 12 and 5, and FiO2 of 50% comfortable in no apparent distress. HEAD: Normocephalic/atraumatic. EYES: Normal reaction of pupils, equal size. Conjunctiva pink, sclera white. NOSE: Clear with pink turbinates. THROAT: No erythema or exudates. NECK: No masses, no JVD, no thyroid enlargement, no adenopathy. CHEST: No chest wall deformity. Symmetrical expansion. LUNGS: Equal air entry with dementia breath sounds at the bases, with limited rales, wheeze, rhonchi or dullness. CVS: Regular rate and rhythm, normal S1 and S2, no gallops, no murmurs, no rubs ABDOMEN: Soft, nontender. No hepatosplenomegaly, normal bowel sounds, no guarding or rigidity. EXTREMITIES: No clubbing, no edema, no cyanosis, 2+ pulses and upper and lower extremities. MUSCULOSKELETAL: Muscle strength and tone normal. SPINE: No scoliosis or deformity SKIN: No rashes CENTRAL NERVOUS SYSTEM: No focal deficits, tone is normal in all 4 extremities. PSYCHIATRIC: Alert and oriented -3. Appropriate affect. Intact judgment and insight. - Labs CBC & Chem 7: 12/04/18 22:59 12/07/18 06:25 Labs: Abnormal Lab Results - Last 24 Hours (Table) 12/06/18 12/06/18 12/07/18 Range/Units 17:01 20:15 05:56 Sodium (137-145) mmol/L BUN (9-20) mg/dL Creatinine (0.66-1.25) mg/dL Glucose (74-99) mg/dL POC Glucose (mg/dL) 290 H 291 H 239 H (75-99) mg/dL 12/07/18 12/07/18 Range/Units 06:25 06:53 Sodium 136 L (137-145) mmol/L BUN 60 H (9-20) mg/dL Creatinine 2.06 H (0.66-1.25) mg/dL Glucose 202 H (74-99) mg/dL POC Glucose (mg/dL) 238 H (75-99) mg/dL Assessment and Plan Assessment: Assessment: #1. Acute dyspnea, acute on chronic hypoxemic respiratory failure due to acute exacerbation of chronic congestive heart failure with severely impaired left ventricle systolic function #2. Chronic obstructive pulmonary disease, no active is stable at this time #3. Recent hospitalization for acute exacerbation of CHF #4. History of polymorphic ventricular tachycardia, status post cardioversion and subsequent AICD placement #5. History of moderately severe chronic obstructive pulmonary disease #6. Recent episode of acute hypertensive emergency #7. History of chronic atrial fibrillation on Eliquis #8. Chronic anemia #9. Stage III chronic kidney disease #10. Degenerative joint disease #11. Chronic back pain #12. Previous history of bypass grafting #13. Multiple other medical problems and comorbidities Plan: The patient was seen and evaluated by Dr. Darling. He is currently stable from the pulmonary standpoint. His overall prognosis remains quite guarded. We'll continue with the current treatment plan. Off the BiPAP as tolerated. We'll continue to follow and make further recommendations based on his clinical status. I, the cosigning physician, performed a history & physical examination of the patient. Lungs sounds crackles in the bilateral posterior bases. Maintaining good O2 saturations in the 90s on BiPAP 12/5 and 50% FiO2 alternating with 5 L/m per nasal cannula. I discussed the assessment and plan of care with my nurse practitioner, Cintia Thomas. I attest to the above note as dictated by her.
[2018-12-07 11:36] LABS: Anisocytosis Slight; HCT 20.6 % (39.0-53.0); Hypochromasia Marked; MCH 25.6 pg (25.0-35.0); MCHC 30.6 g/dL (31.0-37.0); MCV 83.8 fL (80.0-100.0); Mean Platelet Volume 7.6; Platelet Count 375 k/uL (150-450); RBC 2.45 m/uL (4.30-5.90); RDW 17.5 % (11.5-15.5); WBC 14.6 k/uL (3.8-10.6)
[2018-12-07 11:43] LABS: HGB 6.3 gm/dL (13.0-17.5)
[2018-12-07 11:56] LABS: Glucose,Whole Blood 310 mg/dL (75-99)
[2018-12-07 12:18] LABS: Glucose,Whole Blood 333 mg/dL (75-99)
[2018-12-07] MEDS ORDERED: INSULIN REGULAR BOLUS (FROM DRIP BAG) IV ONE (12:47)
[2018-12-07] MEDS ORDERED: INSULIN REGULAR 100 UNIT in SODIUM CHLORIDE 0.9% 100 ML IV SCH (13:00)
[2018-12-07 13:25] LABS: Glucose,Whole Blood 362 mg/dL (75-99)
--- NOTE | 2018-12-07 13:28 | CDI ---
Documentation Clarification Form Date: 12/07/2018 1:17:00 PM From: Ginny Funes CCS, CCDS Admit Date: 12/05/2018 12:26:00 AM Patient Name: Antonio Duncan Visit Number: [id number] Discharge Date: ATTENTION: The Clinical Documentation Specialists (CDI) and [facility] Coding Staff appreciate your assistance in clarifying documentation. Please respond to the clarification below the line at the bottom and electronically sign. The CDI & [facility] Coding staff will review the response and follow-up if needed. Please note: Queries are made part of the Legal Health Record. If you have any questions, please contact the author of this message via ITS. Dr. Andre Stallings: A diagnosis of anemia lacks specificity to accurately reflect your patients severity of condition and clarification is needed. Per the Cardiology & Pulmonary consults and subsequent progress notes, chronic anemia without further specificity is documented. History/Risk Factors: Diastolic CHF, Moderate TR, Severe pulmonary hypertension, CKD III, Severe CAD with hx of bypass & stent, Primary OA, Persistent atrial fibrillation, GERD, Hyperlipidemia, Hypertension, Severe PAD and Anxiety. Clinical indicators: Presented with SOB, diagnosed with acute exacerbation of diastolic CHF & COPD with acute hypoxic & hypercapnic respiratory failure requiring BiPAP. Recent admission for cardiac arrest, V fib status post ICD implantation. Hemoglobin: 7.3* - 6.3 Hematocrit: 23.7* - 20.6* Treatment: IV Lasix, INH Albuterol, IV Solumedrol, BiPAP, Eliquis. As the attending physician, in order to capture the severity of condition, please clarify the type of anemia and etiology if known: Acute blood loss anemia Acute on chronic blood loss anemia Chronic blood loss anemia Iron deficiency anemia Hemolytic anemia Drug induced anemia Nutritional anemia Anemia of chronic kidney disease Anemia of other chronic disease, please specify if known Unable to determine Other, please specify (Last Revision: January 2017) see dc summary MTDD
[2018-12-07 14:18] LABS: Glucose,Whole Blood 210 mg/dL (75-99)
[2018-12-07 16:23] LABS: Glucose,Whole Blood 70 mg/dL (75-99)
[2018-12-07 16:24] LABS: Glucose,Whole Blood 63 mg/dL (75-99)
[2018-12-07 16:52] LABS: Glucose,Whole Blood 75 mg/dL (75-99)
[2018-12-07] MEDS: FUROSEMIDE 40 MG TAB PO SCH (17:19)
[2018-12-07 17:31] LABS: Glucose,Whole Blood 128 mg/dL (75-99)
[2018-12-07 18:21] LABS: Glucose,Whole Blood 214 mg/dL (75-99)
[2018-12-07 20:06] LABS: Glucose,Whole Blood 223 mg/dL (75-99)
[2018-12-07] MEDS: ATORVASTATIN 40 MG TAB PO SCH (20:06)
[2018-12-07 20:39] LABS: Hemoglobin A1C 5.9 % (4.0-6.0)
--- NOTE | 2018-12-07 20:48 | P.PN ---
Progress Note - Text Progress Note Date: 12/07/18 Chief Complaint: Short of breath Interval history: This is a pleasant 73-year-old patient with rather extensive medical history. Chronic stable medical conditions include coronary artery disease, GERD, hypertension, hyperlipidemia, osteoarthritis. Patient presents with a few days of progressive shortness of breath continued to get worse. Patient to stop smoking about a year ago. Appetite is okay. No edema. Minimal cough. No fever no chills. No sputum production. Patient is felt a predominant COPD exacerbation with some CHF exacerbation. Patient is put on a BiPAP. Patient is able to get around the house. With a cane. Also had uncontrolled anxiety. Started on Paxil. Today-saw the patient does morning. Doing much better. Anxiety is well controlled. Breathing is improved. Eating better. Has been on IV Lasix. Review of systems: Was done for constitutional, cardiovascular, GI, pulmonary. relevant finding as above Active Medications Hydrocodone Bitart/Acetaminophen ([place] 10) 1 each PO Q4H PRN PRN Reason: Moderate Pain Last Admin: 12/07/18 18:29 Dose: 1 each Documented by: Albuterol/Ipratropium (Duoneb 0.5 Mg-3 Mg/3 Ml Soln) 3 ml INHALATION RT-TID PRN PRN Reason: Shortness Of Breath Or Wheezing Albuterol/Ipratropium (Duoneb 0.5 Mg-3 Mg/3 Ml Soln) 3 ml INHALATION RT-Q4H [facility] Last Admin: 12/07/18 19:30 Dose: 3 ml Documented by: Alprazolam (Xanax) 0.5 mg PO QID PRN PRN Reason: Anxiety Last Admin: 12/07/18 14:22 Dose: 0.5 mg Documented by: Amlodipine Besylate (Norvasc) 5 mg PO BID [facility] Last Admin: 12/07/18 20:06 Dose: 5 mg Documented by: Apixaban (Eliquis) 2.5 mg PO BID [facility] Last Admin: 12/07/18 20:06 Dose: 2.5 mg Documented by: Aspirin (Aspirin) 81 mg PO DAILY [facility] Last Admin: 12/07/18 08:36 Dose: 81 mg Documented by: Atorvastatin Calcium (Lipitor) 40 mg PO HS [facility] Last Admin: 12/07/18 20:06 Dose: 40 mg Documented by: Budesonide (Pulmicort) 1 mg INHALATION RT-BID [facility] Last Admin: 12/07/18 19:30 Dose: 1 mg Documented by: Furosemide (Lasix) 40 mg PO BID@0900,1600 [facility] Last Admin: 12/07/18 17:19 Dose: 40 mg Documented by: Hydralazine HCl (Apresoline) 100 mg PO TID [facility] Last Admin: 12/07/18 17:19 Dose: 100 mg Documented by: Insulin Human Regular 100 unit (/ Sodium Chloride) 101 mls @ 0 mls/hr IV .Q0M [facility]; Protocol Last Titration: 12/07/18 18:22 Dose: 2 units/hr, 2.02 mls/hr Documented by: Isosorbide Mononitrate (Imdur) 120 mg PO DAILY [facility] Last Admin: 12/07/18 08:35 Dose: 120 mg Documented by: Methylprednisolone Sodium Succinate (Solu-Medrol) 40 mg IV Q8HR [facility] Last Admin: 12/07/18 17:18 Dose: 40 mg Documented by: Metoprolol Tartrate (Lopressor) 100 mg PO BID [facility] Last Admin: 12/07/18 20:06 Dose: 100 mg Documented by: Nitroglycerin (Nitrostat) 0.4 mg SUBLINGUAL Q5M PRN PRN Reason: Chest Pain Last Admin: 12/06/18 20:33 Dose: 0.4 mg Documented by: Paroxetine HCl (Paxil) 20 mg PO DAILY [facility] Last Admin: 12/07/18 08:36 Dose: 20 mg Documented by: Potassium Chloride (K-Dur 20) 20 meq PO DAILY [facility] Last Admin: 12/07/18 08:38 Dose: 20 meq Documented by: Sodium Chloride (Saline Flush) 10 ml IV BID [facility] Last Admin: 12/07/18 20:06 Dose: 10 ml Documented by: Physical examination: VITAL SIGNS: 97.5, 77, 20, 1:30/63, 91% on BiPAP GENERAL: Less short of breath today. Less anxious EYES: Pupils equal. Conjunctiva normal. HEENT: External appearance of nose and ears normal, oral cavity grossly normal. NECK: JVD possibly raised; masses not palpable. HEART: First and second heart sounds are normal; no edema. LUNGS: Respiratory rate increased, diminished breath sounds . ABDOMEN: Soft, nontender, liver spleen not palpable, no masses palpable. PSYCH: Alert and oriented x3; mood and affect , less anxiousl. INVESTIGATIONS, reviewed in the clinical context: White count 14.6 hemoglobin 6.3 potassium 4.2 BUN 60 creatinine 2.06 Admission tests White count 13.3 hemoglobin 7.3 potassium 4 BUN 38 creatinine 1.95 Labs on December 01 showed a BUN of 25 and a creatinine 1.63 EKG tracing personally reviewed by me shows atrial flutter fibrillation with some ST segment changes Perfusion scan suspicion low for PE 2-D echo limited-moderate tricuspid regurgitation, severe pulmonary hypertension Cardiac catheterization on November [address] Arcos shows significant disease, for medical management Chest x-ray film personally reviewed by me shows cardiomegaly and some venous prominence that included the horizontal fissure 2-D echo from recently shows EF of 50-55% Assessment: -Acute severe COPD exacerbation in a current smoker, improving -Acute hypoxic and hypercapnic respiratory failure due to COPD exacerbation -Acute on chronic congestive heart failure exacerbation from diastolic dysfunction EF 50-55%, improved -Moderate tricuspid regurgitation, nontraumatic - Severe secondary pulmonary hypertension from probably COPD and CHF -Severe coronary artery disease, with history of bypass and stent, for medical management -Severe symptomatic anemia normocytic likely from underlying chronic kidney di sease -Primary osteoarthritis -Persistent atrial flutter fibrillation, rate controlled -GERD -Hyperlipidemia -Essential hypertension -Severe peripheral arterial disease -GERD -Anxiety not otherwise specified, uncontrolled, doing better -Chronic kidney disease stage III probably from nephrosclerosis Plan: Patient was switched over to oral Lasix. Daily unit of blood. Check hemoglobin in the morning. Oral looking better. Hopefully discharge in 24 hours.
[2018-12-07 22:04] LABS: Glucose,Whole Blood 257 mg/dL (75-99)
[2018-12-07] MEDS: predniSONE 20 MG TAB PO SCH (23:13)
[2018-12-08 00:13] LABS: Glucose,Whole Blood 202 mg/dL (75-99)
[2018-12-08 02:06] LABS: Glucose,Whole Blood 247 mg/dL (75-99)
[2018-12-08] MEDS: IPRATROPIUM-ALBUTEROL 3 ML NEB INHALATION SCH ×5 (03:13→18:25)
[2018-12-08 04:07] LABS: Glucose,Whole Blood 148 mg/dL (75-99)
[2018-12-08 05:57] LABS: Glucose,Whole Blood 145 mg/dL (75-99)
[2018-12-08 07:10] LABS: Potassium 5.1 mmol/L (3.5-5.1)
[2018-12-08 07:37] LABS: Anisocytosis Slight; Basophils % (A) 0 %; Eosinophils % (A) 0 %; HCT 23.8 % (39.0-53.0); HGB 7.4 gm/dL (13.0-17.5); Hypochromasia Moderate; Lymphocytes # (A) 0.7 k/uL (1.0-4.8); Lymphocytes % (A) 4 %; MCH 26.2 pg (25.0-35.0); MCHC 31.3 g/dL (31.0-37.0); MCV 83.5 fL (80.0-100.0); Mean Platelet Volume 7.5; Monocytes # (A) 0.7 k/uL (0-1.0); Monocytes % (A) 4 %; Neutrophils # (A) 14.5 k/uL (1.3-7.7); Neutrophils % (A) 91 %; Platelet Count 404 k/uL (150-450); Poikilocytosis Slight; RBC 2.85 m/uL (4.30-5.90); RDW 17.4 % (11.5-15.5)
[2018-12-08] MEDS: BUDESONIDE 1 MG/2 ML NEBU INHALATION SCH ×2 (08:22→18:25)
[2018-12-08] MEDS: amLODIPine 5 MG TAB PO SCH (08:54)
[2018-12-08] MEDS: hydrALAZINE HCL 50 MG TAB PO SCH ×2 (08:54→16:25)
[2018-12-08] MEDS: APIXABAN 2.5 MG TABLET PO SCH (08:54)
[2018-12-08] MEDS: predniSONE 20 MG TAB PO SCH (08:54)
[2018-12-08] MEDS: POTASSIUM CHLORIDE ER 20 MEQ TAB.ER PO SCH (08:54)
[2018-12-08] MEDS: METOPROLOL TARTRATE 50 MG TAB PO SCH (08:55)
[2018-12-08] MEDS: ASPIRIN 81 MG PO SCH (08:55)
[2018-12-08] MEDS: ISOSORBIDE MONONITRATE ER 60 MG TAB.ER.24H PO SCH (08:55)
[2018-12-08 08:56] LABS: Polychromasia Present
[2018-12-08] MEDS: FUROSEMIDE 40 MG TAB PO SCH ×2 (08:56→16:25)
[2018-12-08] MEDS: PARoxetine 20 MG TAB PO SCH (08:56)
[2018-12-08 10:01] VITALS: BP 133/64; RESP 20; TEMP 97.8
[2018-12-08 12:00] LABS: Glucose,Whole Blood 290 mg/dL (75-99)
[2018-12-08] MEDS: INSULIN ASPART (NovoLOG) 100 UNIT/ML VIAL SQ SCH ×2 (12:31→17:41)
--- NOTE | 2018-12-08 12:40 | P.DS ---
Providers Date of admission: 12/05/18 00:26 Expected date of discharge: 12/08/18 Attending physician: Andre Stallings Consults: 12/05/18 00:23 Consult Physician Routine Consulting Provider: Ray Denson Consult Reason/Comments: your patient Do you want consulting provider notified?: Yes Consult Physician Routine Consulting Provider: Steven Goldstein Consult Reason/Comments: chf exacerbation Do you want consulting provider notified?: Yes Primary care physician: Víctor Weston [facility] Course: Hospital course: This is a pleasant 73-year-old patient with rather extensive medical history. Chronic stable medical conditions include coronary artery disease, GERD, hypertension, hyperlipidemia, osteoarthritis. Patient presents with a few days of progressive shortness of breath continued to get worse. Patient to stop smoking about a year ago. Appetite is okay. No edema. Minimal cough. No fever no chills. No sputum production. Patient is felt a predominant COPD exacerbation with some CHF exacerbation. Patient is put on a BiPAP. Patient is able to get around the house. With a cane. Also had uncontrolled anxiety. Started on Paxil. On recent admission patient had ventricular fibrillation and cardiac arrest in the hospital. He has sinus bradycardia and paroxysmal atrial fibrillation. Had a dual-chamber ICD placed by Dr. Kinney. for sinus bradycardia. Patient responded well to Paxil. Anxiety well controlled. Also responded to diuretics. Renal function has gone up. We'll hold off Lasix for 24 hours. Patient doing well. Walked the hallway. Has been using a BiPAP. Care was discussed with the patient. Questions were answered. Discharge planning more than 35 minutes Consultations: Dr. Porter from pulmonary Dr. Arcos from cardiology Physical examination: VITAL SIGNS: 97.8, 72, 20, 133/64, 91% on 5 L GENERAL: Sitting up, looking better EYES: Pupils equal. Conjunctiva normal. HEENT: External appearance of nose and ears normal, oral cavity grossly normal. NECK: JVD possibly raised; masses not palpable. HEART: First and second heart sounds are normal; no edema. LUNGS: Respiratory rate increased, diminished breath sounds . ABDOMEN: Soft, nontender, liver spleen not palpable, no masses palpable. PSYCH: Alert and oriented x3; mood and affect normal INVESTIGATIONS, reviewed in the clinical context: White count 16, hemoglobin 7.4, potassium 5.1, 184, creatinine 2.67 Admission tests White count 13.3 hemoglobin 7.3 potassium 4 BUN 38 creatinine 1.95 Labs on December 01 showed a BUN of 25 and a creatinine 1.63 EKG tracing personally reviewed by me shows atrial flutter fibrillation with some ST segment changes Perfusion scan suspicion low for PE 2-D echo limited-moderate tricuspid regurgitation, severe pulmonary hypertension Cardiac catheterization on November [address] Arcos shows significant disease, for medical management Chest x-ray film personally reviewed by me shows cardiomegaly and some venous prominence that included the horizontal fissure 2-D echo from recently shows EF of 50-55% Assessment: -Acute severe COPD exacerbation in a current smoker, improving -Acute hypoxic and hypercapnic respiratory failure due to COPD exacerbation -Acute on chronic congestive heart failure exacerbation from diastolic dysfunction EF 50-55%, improved -Moderate tricuspid regurgitation, nontraumatic -Dual-chamber ICD placed in November 30 for sinus bradycardia - Severe secondary pulmonary hypertension from probably COPD and CHF -Severe coronary artery disease, with history of bypass and stent, for medical management -Severe symptomatic anemia normocytic likely from underlying chronic kidney disease -Primary osteoarthritis -Acute kidney injury, prerenal from diuretics -Persistent atrial flutter fibrillation, rate controlled -GERD -Hyperlipidemia -Essential hypertension -Severe peripheral arterial disease -GERD -Anxiety not otherwise specified, uncontrolled, doing better -Chronic kidney disease stage III probably from nephrosclerosis Disposition: [facility] Patient Condition at Discharge: Stable Plan - Discharge Summary Discharge Rx Participant: No New Discharge Prescriptions: New Ipratropium-Albuterol Nebulize [Duoneb 0.5 mg-3 mg/3 ml Soln] 3 ml INHALATION QID #1 ampul.neb PARoxetine [Paxil] 20 mg PO DAILY tab predniSONE 10 mg PO DAILY #30 tab Budesonide [Pulmicort] 1 mg INHALATION RT-BID nebu Continue Potassium Chloride [Klor-Con 20] 20 meq PO DAILY Nitroglycerin Sl Tabs [Nitrostat] 0.4 mg SUBLINGUAL Q5M PRN PRN Reason: Chest Pain hydrALAZINE HCL [Apresoline] 100 mg PO TID #90 tab Aspirin 81 mg PO DAILY chew Apixaban [Eliquis] 2.5 mg PO BID tablet Isosorbide Mononitrate ER [Imdur] 120 mg PO DAILY #60 tab.er.24h Furosemide [Lasix] 40 mg PO DAILY #30 tab Atorvastatin [Lipitor] 40 mg PO HS #30 tab Metoprolol Tartrate [Lopressor] 100 mg PO BID #60 tab amLODIPine [Norvasc] 5 mg PO BID #60 tab HYDROcodone/APAP 10-325MG [[place] 10-325] 1 each PO Q4H PRN #15 tab PRN Reason: Moderate Pain Discharge Medication List Nitroglycerin Sl Tabs [Nitrostat] 0.4 mg SUBLINGUAL Q5M PRN 11/22/18 [History] Potassium Chloride [Klor-Con 20] 20 meq PO DAILY 11/22/18 [History] Apixaban [Eliquis] 2.5 mg PO BID tablet 12/01/18 [Rx] Aspirin 81 mg PO DAILY chew 12/01/18 [Rx] Atorvastatin [Lipitor] 40 mg PO HS #30 tab 12/01/18 [Rx] Furosemide [Lasix] 40 mg PO DAILY #30 tab 12/01/18 [Rx] Isosorbide Mononitrate ER [Imdur] 120 mg PO DAILY #60 tab.er.24h 12/01/18 [Rx] Metoprolol Tartrate [Lopressor] 100 mg PO BID #60 tab 12/01/18 [Rx] amLODIPine [Norvasc] 5 mg PO BID #60 tab 12/01/18 [Rx] hydrALAZINE HCL [Apresoline] 100 mg PO TID #90 tab 12/01/18 [Rx] Budesonide [Pulmicort] 1 mg INHALATION RT-BID nebu 12/08/18 [Rx] HYDROcodone/APAP 10-325MG [[place] 10-325] 1 each PO Q4H PRN #15 tab 12/08/18 [Rx] Ipratropium-Albuterol Nebulize [Duoneb 0.5 mg-3 mg/3 ml Soln] 3 ml INHALATION QID #1 ampul.neb 12/08/18 [Rx] PARoxetine [Paxil] 20 mg PO DAILY tab 12/08/18 [Rx] predniSONE 10 mg PO DAILY #30 tab 12/08/18 [Rx] Follow up Appointment(s)/Referral(s): Jorge Nichols DO [STAFF PHYSICIAN] - 12/09/18 Víctor Smiley MD [Primary Care Provider] - As Needed Activity/Diet/Wound Care/Special Instructions: maximiliano BiPAP IPAP 12 EPAP 5 Fio2 50% CBC BMP in 2 days
--- NOTE | 2018-12-08 13:48 | P.PN ---
Subjective Progress Note Date: 12/08/18 Principal diagnosis: Acute hypoxemic respiratory failure requiring BiPAP therapy primarily secondary to acute exacerbation of congestive heart failure with systolic dysfunction On only 2018 patient seen in follow-up on selective care unit, he remains on BiPAP support, with pressures of 12 and 5 and 50%, patient is wearing intermittently, he has been tried on a nasal cannula, at 5 L, his pulse ox is 94 200%, he states his breathing is improving, significant cough or congestion, no wheezing, sounds reveal some diminished breath sounds bilaterally, afebrile, hemodynamically stable, denied any chest pain, patient continues on IV Lasix, nebulized bronchodilators, he is on oral Eliquis for history of A. fib, is on breathing treatments and IV Solu-Medrol. He is in negative fluid balance, no significant lower extremity edema. Patient had a VQ scan done which was incomp lete, and although the patient could not complete the perfusion portion, there were no findings to suspect pulmonary embolism. On 12/08/2018 patient seen in follow-up on selective care unit, he is awake and alert, he is looking better and breathing much easier today, lung sounds are clear to auscultation, no rhonchi or wheezing. He has been transitioned to oral diuretics, yesterday his follow-up chest x-ray showed improving aeration of the lungs no minimal pulmonary vessel congestion and nearly resolved perihilar opacities. Clinically he is stable, he is awake and alert, he is been wearing BiPAP as needed. No acute events overnight, no compressive chest pain, patient is stable for discharge to [facility] today, and he can wear BiPAP support is needed at the same settings, 12 and 6 and 50% Objective - Vital Signs Vital signs: Vital Signs Temp 97.8 F 12/08/18 10:00 Pulse 80 12/08/18 13:28 Resp 20 12/08/18 10:06 BP 133/64 12/08/18 10:00 Pulse Ox 91 L 12/08/18 12:41 Intake & Output 12/07/18 12/08/18 12/08/18 18:59 06:59 18:59 Intake Total 810.769 54.702 214.545 Output Total 200 200 Balance 610.769 -145.298 214.545 Weight 67.9 kg Intake: IV 40 30 10 Invasive Line 3 40 30 10 Intake, IV Titration 23.769 24.702 4.545 Amount Insulin Regular 100 unit 23.769 24.702 4.545 In Sodium Chloride 0.9% 100 ml @ Titrate IV .Q0M [facility] Rx#:[id number] Oral 437 200 Blood Product 310 Rc As-1 Unit 310 [id number] Output: Urine 200 200 Other: Voiding Method Toilet Toilet Toilet Urinal Urinal Urinal # Voids 1 - Exam GENERAL EXAM: Alert, pleasant, 73-year-old white male, on BiPAP support, with pressures of 12 and 6, and FiO2 of 50% comfortable in no apparent distress. HEAD: Normocephalic/atraumatic. EYES: Normal reaction of pupils, equal size. Conjunctiva pink, sclera white. NOSE: Clear with pink turbinates. THROAT: No erythema or exudates. NECK: No masses, no JVD, no thyroid enlargement, no adenopathy. CHEST: No chest wall deformity. Symmetrical expansion. LUNGS: Equal air entry with dementia breath sounds at the bases, with limited rales, wheeze, rhonchi or dullness. CVS: Regular rate and rhythm, normal S1 and S2, no gallops, no murmurs, no rubs ABDOMEN: Soft, nontender. No hepatosplenomegaly, normal bowel sounds, no guarding or rigidity. EXTREMITIES: No clubbing, no edema, no cyanosis, 2+ pulses and upper and lower extremities. MUSCULOSKELETAL: Muscle strength and tone normal. SPINE: No scoliosis or deformity SKIN: No rashes CENTRAL NERVOUS SYSTEM: Alert and oriented -3. No focal deficits, tone is normal in all 4 extremities. PSYCHIATRIC: Alert and oriented -3. Appropriate affect. Intact judgment and insight. - Labs CBC & Chem 7: 12/08/18 06:38 12/08/18 06:38 Labs: Abnormal Lab Results - Last 24 Hours (Table) 12/07/18 12/07/18 12/07/18 Range/Units 11:58 14:09 16:04 WBC (3.8-10.6) k/uL RBC (4.30-5.90) m/uL Hgb (13.0-17.5) gm/dL Hct (39.0-53.0) % RDW (11.5-15.5) % Neutrophils # (1.3-7.7) k/uL Lymphocytes # (1.0-4.8) k/uL Sodium (137-145) mmol/L BUN (9-20) mg/dL Creatinine (0.66-1.25) mg/dL Glucose (74-99) mg/dL POC Glucose (mg/dL) 210 H 63 L (75-99) mg/dL Crossmatch See Detail 12/07/18 12/07/18 12/07/18 Range/Units 16:20 17:07 18:11 WBC (3.8-10.6) k/uL RBC (4.30-5.90) m/uL Hgb (13.0-17.5) gm/dL Hct (39.0-53.0) % RDW (11.5-15.5) % Neutrophils # (1.3-7.7) k/uL Lymphocytes # (1.0-4.8) k/uL Sodium (137-145) mmol/L BUN (9-20) mg/dL Creatinine (0.66-1.25) mg/dL Glucose (74-99) mg/dL POC Glucose (mg/dL) 70 L 128 H 214 H (75-99) mg/dL Crossmatch 12/07/18 12/07/18 12/08/18 Range/Units 20:04 22:02 00:11 WBC (3.8-10.6) k/uL RBC (4.30-5.90) m/uL Hgb (13.0-17.5) gm/dL Hct (39.0-53.0) % RDW (11.5-15.5) % Neutrophils # (1.3-7.7) k/uL Lymphocytes # (1.0-4.8) k/uL Sodium (137-145) mmol/L BUN (9-20) mg/dL Creatinine (0.66-1.25) mg/dL Glucose (74-99) mg/dL POC Glucose (mg/dL) 223 H 257 H 202 H (75-99) mg/dL Crossmatch 12/08/18 12/08/18 12/08/18 Range/Units 02:04 04:06 05:56 WBC (3.8-10.6) k/uL RBC (4.30-5.90) m/uL Hgb (13.0-17.5) gm/dL Hct (39.0-53.0) % RDW (11.5-15.5) % Neutrophils # (1.3-7.7) k/uL Lymphocytes # (1.0-4.8) k/uL Sodium (137-145) mmol/L BUN (9-20) mg/dL Creatinine (0.66-1.25) mg/dL Glucose (74-99) mg/dL POC Glucose (mg/dL) 247 H 148 H 145 H (75-99) mg/dL Crossmatch 12/08/18 12/08/18 12/08/18 Range/Units 06:38 06:38 11:45 WBC 16.0 H (3.8-10.6) k/uL RBC 2.85 L (4.30-5.90) m/uL Hgb 7.4 L (13.0-17.5) gm/dL Hct 23.8 L (39.0-53.0) % RDW 17.4 H (11.5-15.5) % Neutrophils # 14.5 H (1.3-7.7) k/uL Lymphocytes # 0.7 L (1.0-4.8) k/uL Sodium 134 L (137-145) mmol/L BUN 84 H (9-20) mg/dL Creatinine 2.67 H (0.66-1.25) mg/dL Glucose 135 H (74-99) mg/dL POC Glucose (mg/dL) 290 H (75-99) mg/dL Crossmatch Assessment and Plan Plan: Assessment: #1. Acute dyspnea, acute on chronic hypoxemic respiratory failure due to acute exacerbation of chronic congestive heart failure with severely impaired left ventricle systolic function #2. Chronic obstructive pulmonary disease, no active is stable at this time #3. Recent hospitalization for acute exacerbation of CHF #4. History of polymorphic ventricular tachycardia, status post cardioversion and subsequent AICD placement #5. History of moderately severe chronic obstructive pulmonary disease #6. Recent episode of acute hypertensive emergency #7. History of chronic atrial fibrillation on Eliquis #8. Chronic anemia #9. Stage III chronic kidney disease #10. Degenerative joint disease #11. Chronic back pain #12. Previous history of bypass grafting #13. Multiple other medical problems and comorbidities Plan: Patient is improving, breathing easier, yesterday chest x-ray showed improving aeration of bilateral lungs, with minimal pulmonary vessel congestion, fluid volume status has improved, patient has been transitioned to oral diuretics. From pulmonary perspective patient is stable for discharge to [facility] today, patient is going to [facility], and he can utilize BiPAP at pressures of 12 and 6 and 50% at bedtime and as needed. I performed a history & physical examination of the patient and discussed their management with my nurse practitioner, Saray Galarza. I reviewed the nurse practitioner's note and agree with the documented findings and plan of care. Lung sounds are positive for basilar rales.. The findings and the impression was discussed with the patient. I attest to the documentation by the nurse practitioner. Time with Patient: Less than 30
--- NOTE | 2018-12-08 14:23 | PN ---
PROGRESS NOTE Mr. Duncan is a 73-year-old male with a known history of severe chronic obstructive lung disease, history of coronary artery disease, atrial fibrillation, status post recent ICD implantation who presented with worsening dyspnea. He is feeling better today. He is anxious to go home. The plan is to go [place]. He denied any chest pain. No dizziness. He denies any palpitation. He denies any nausea. He continues to be at this time on amlodipine 5 mg twice a day, Eliquis 2.5 mg twice a day, aspirin once a day, Lipitor 40 mg daily hydralazine 100 mg 3 times a day, isosorbide mononitrate 120 mg daily, metoprolol tartrate 100 mg twice a day, and furosemide 40 mg twice a day. PHYSICAL EXAMINATION: Blood pressure 130/60 with the heart rate in the 80s. LUNGS: With decreased air exchange, no wheezes. HEART: Irregular S1, S2. No S3. No rub with systolic murmur. ABDOMEN: Soft nontender. EXTREMITIES: No edema. LAB DATA: Lab data revealed hemoglobin of 7.4, white blood cell of 16,000. BUN and creatinine of 84 and 2.6. IMPRESSION: 1. Symptoms of progressive dyspnea with congestive heart failure with preserved systolic function, improved. 2. History of coronary artery disease. 3. Atrial fibrillation persistent, status post ICD implantation. 4. History of chronic obstructive lung disease. 5. Chronic kidney disease. 6. Anemia. RECOMMENDATION: Patient will be discharged home today, followed as an outpatient. His renal function will be followed. He will have his device checked. Depending on his progress, further recommendation will be made. MMODL / IJN: [id number] /
[2018-12-08 17:11] LABS: Glucose,Whole Blood 225 mg/dL (75-99)
[2018-12-08] MEDS: HYDROcodone/APAP 10-325MG 1 EACH TAB PO PRN (17:45)
[2018-12-08 18:33] VITALS: PULSE 87
== END 2018-12-08 19:15 | DRG 291 ==
LOC: EC 22:44 → 3SCARD 12-05 00:26
PROVIDERS: ADMIT Hospitalist; ATTEND Hospitalist
PROC: 5A09357 Assistance with Respiratory Ventilation, Less than 24 Consecutive Hours, Continuous Positive Airway Pressure (ICD-10-PCS; principal; 2018-12-05)
DX: I13.0 Hypertensive heart and chronic kidney disease with heart failure and stage 1 through stage 4 chronic kidney disease, or unspecified chronic kidney disease (principal); I50.43 Acute on chronic combined systolic (congestive) and diastolic (congestive) heart failure; J96.21 Acute and chronic respiratory failure with hypoxia; J96.22 Acute and chronic respiratory failure with hypercapnia; I16.1 Hypertensive emergency; I48.1 Persistent atrial fibrillation; I48.92 Unspecified atrial flutter; J44.1 Chronic obstructive pulmonary disease with (acute) exacerbation; N17.9 Acute kidney failure, unspecified; D63.1 Anemia in chronic kidney disease; E78.5 Hyperlipidemia, unspecified; F17.210 Nicotine dependence, cigarettes, uncomplicated; F41.9 Anxiety disorder, unspecified; G89.29 Other chronic pain; I07.1 Rheumatic tricuspid insufficiency; I25.10 Atherosclerotic heart disease of native coronary artery without angina pectoris; I25.2 Old myocardial infarction; I25.82 Chronic total occlusion of coronary artery; I27.29 Other secondary pulmonary hypertension; I73.9 Peripheral vascular disease, unspecified; K21.9 Gastro-esophageal reflux disease without esophagitis; M19.90 Unspecified osteoarthritis, unspecified site; N18.3 Chronic kidney disease, stage 3 (moderate); Z79.01 Long term (current) use of anticoagulants; Z79.82 Long term (current) use of aspirin; Z79.899 Other long term (current) drug therapy; Z80.9 Family history of malignant neoplasm, unspecified; Z82.61 Family history of arthritis; Z86.74 Personal history of sudden cardiac arrest; Z87.11 Personal history of peptic ulcer disease; Z86.010 Personal history of colon polyps; Z90.49 Acquired absence of other specified parts of digestive tract; Z95.810 Presence of automatic (implantable) cardiac defibrillator; Z95.5 Presence of coronary angioplasty implant and graft; Z95.828 Presence of other vascular implants and grafts; Z87.01 Personal history of pneumonia (recurrent); Z66 Do not resuscitate; R74.8 Abnormal levels of other serum enzymes; M54.9 Dorsalgia, unspecified; Z98.42 Cataract extraction status, left eye; Z98.41 Cataract extraction status, right eye; K44.9 Diaphragmatic hernia without obstruction or gangrene
CPT/HCPCS: 36415; 71045; 78580; 80048; 80053; 83036; 83880; 84484; 85025; 85027; 85379; 85610; 85730; 86850; 86900; 86901; 86920; 93005; 93308; 93970; 94640; 94660; 96374; 96375; 99285

== ENCOUNTER 2018-12-09 03:13 | Inpatient (IN) | payer MEDICARE, BC ==
--- NOTE | 2018-12-09 03:18 | ED ---
General Adult HPI - General Stated complaint: SOB Chest pain Time Seen by Provider: 12/09/18 03:15 - History of Present Illness Initial comments: Antonio is a 73-year-old gentleman with extensive past medical history most significant for recent torsades cardiac arrest, recent admission for CHF exacerbation and a pacemaker placement. Patient was discharged from the hospital yesterday. During the night the patient began complaining of chest pain was noted to have some increased work of breathing despite using his nightly BiPAP machine. Patient was given [place] and 2 doses of nitro for his chest pain and reports of chest pain improved. At that time EMS was contacted for transport to the hospital. Patient reports his chest pain has improved since Nitro and Mckinney. He is chest pain free upon arrival to the ER. He denies current SOB though his respiratory rate is >30 and he is belly breathing he reports this is normal for him. - Related Data Home Medications Medication Instructions Recorded Confirmed Nitroglycerin Sl Tabs [Nitrostat] 0.4 mg SUBLINGUAL Q5M PRN 11/22/18 12/04/18 Potassium Chloride [Klor-Con 20] 20 meq PO DAILY 11/22/18 12/04/18 Previous Rx's Medication Instructions Recorded Apixaban [Eliquis] 2.5 mg PO BID tablet 12/01/18 Aspirin 81 mg PO DAILY chew 12/01/18 Atorvastatin [Lipitor] 40 mg PO HS #30 tab 12/01/18 Furosemide [Lasix] 40 mg PO DAILY #30 tab 12/01/18 Isosorbide Mononitrate ER [Imdur] 120 mg PO DAILY #60 tab.er.24h 12/01/18 Metoprolol Tartrate [Lopressor] 100 mg PO BID #60 tab 12/01/18 amLODIPine [Norvasc] 5 mg PO BID #60 tab 12/01/18 hydrALAZINE HCL [Apresoline] 100 mg PO TID #90 tab 12/01/18 Budesonide [Pulmicort] 1 mg INHALATION RT-BID nebu 12/08/18 HYDROcodone/APAP 10-325MG [[place] 1 each PO Q4H PRN #15 tab 12/08/18 10-325] Ipratropium-Albuterol Nebulize 3 ml INHALATION QID #1 ampul.neb 12/08/18 [Duoneb 0.5 mg-3 mg/3 ml Soln] PARoxetine [Paxil] 20 mg PO DAILY tab 12/08/18 predniSONE 10 mg PO DAILY #30 tab 12/08/18 Allergies Allergy/AdvReac Type Severity Reaction Status Date / Time No Known Allergies Allergy Verified 12/04/18 23:19 Review of Systems ROS Statement: Those systems with pertinent positive or pertinent negative responses have been documented in the HPI. ROS Other: All systems not noted in ROS Statement are negative. Past Medical History Past Medical History: Atrial Fibrillation, Coronary Artery Disease (CAD), Chest Pain / Angina, Heart Failure, COPD, Eye Disorder, GERD/Reflux, GI Bleed, Hyperlipidemia, Hypertension, Myocardial Infarction ([place]), Osteoarthritis (OA), Pneumonia, Vascular Disorder Additional Past Medical History / Comment(s): Coronary artery disease with previous bypass surgery in 2006, previous coronary artery stenting in 2000, CHF with diastolic dysfunction and the patient is a preserved LV function based on recent echocardiogram, COPD with an FEV1 of 63% of predicted, hypertension, hyperlipidemia, acid reflux, osteoarthritis, previous history of right-sided pleural effusion secondary to CHF, recovered, chronic atrial fibrillation, hiatal hernia with previous history of gastric ulcer and the patient had a EGD and colonoscopy that was done in July 2017 indicating gastritis with negative H. 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 Patient has also hemorrhoids, chronic back pain, migraine, acid reflux, previous history of GI bleed, osteoarthritis, peripheral vascular disease Last Myocardial Infarction Date:: 2006 History of Any Multi-Drug Resistant Organisms: None Reported Past Surgical History: Appendectomy, Coronary Bypass/CABG, Heart Catheterization With Stent, Pacemaker Additional Past Surgical History / Comment(s): EGD/COLONOSCOPY WITH POLYPECTOMY, TRIPLE CABG 2006. PCI/STENT IN 2000. STENTS BILATERAL LEGS, BILATERAL CATARACT REMOVAL. Past Anesthesia/Blood Transfusion Reactions: No Reported Reaction Date of Last Stent Placement:: 2000 Type of Cardiac Device: Permanent Pacemaker, AICD Device Placement Date:: 11/21/2018 Past Psychological History: No Psychological Hx Reported Smoking Status: Former smoker Past Alcohol Use History: None Reported Past Drug Use History: None Reported - Past Family History Mother Family Medical History: Cancer, Osteoarthritis (OA) Course Vital Signs 12/09/18 12/09/18 03:17 04:00 Temperature 97.8 F Pulse Rate 70 68 Respiratory 22 16 Rate Blood Pressure 134/74 134/74 O2 Sat by Pulse 95 100 Oximetry EKG Findings - EKG Comments: EKG Findings:: EKG obtined due to complaint of chest pain. Initial EKG obtained at 3:22 am - EKG with a rate of 82, robinson rhythm appears to be A. fib as it is irregularly irregular with no discernible P waves, there is frequent paced beats. There does appear to be mild ST depression in V5 and V6 no obvious ST elevations,. QRS is 118, QTC is prolonged at 493. This is a irregular EKG with no evidence of acute infarction. Due to poor quality of initial EKG repeat was obtained at 326, this is again a irregularly irregular rhythm with no discernible P waves consistent with atrial fibrillation. Appears to be a normal axis, QRS 108, QT 472, no obvious ST elevations mild ST depressions remain in V5 and V6. No evidence of acute infarction. Medical Decision Making - Medical Decision Making The patient was seen and evaluated, history is obtained from caregivers and arm was reported patient seemed to be having increased work of breathing and chest pain and was noted to be hyperglycemic though he does not have a history of diabetes EKG obtained by EMS were concerned the patient is in respiratory distress but refusing CPAP for transport Further history obtained from medical record and the patient Thorough evaluation including cardiac workup and workup for hyperglycemia was initiated is history of heart failure we will hold IV fluids despite the hyperglycemia. Patient respiratory effort improving on BiPAP Labs resulted with multiple abnormalities, chronic anemia, worsening uremia, chronic hyperkalemia chronic kidney disease troponin remains elevated however remains downtrending Given the patient's age multiple risk factors chest pain relieved by nitro I will plan to admit him for reevaluation by cardiology. - Lab Data Result diagrams: 12/09/18 03:20 12/09/18 03:20 Lab Results 12/09/18 12/09/18 12/09/18 Range/Units 03:20 03:20 03:20 WBC 13.8 H (3.8-10.6) k/uL RBC 2.95 L (4.30-5.90) m/uL Hgb 7.7 L (13.0-17.5) gm/dL Hct 24.2 L (39.0-53.0) % MCV 82.0 (80.0-100.0) fL MCH 26.0 (25.0-35.0) pg MCHC 31.7 (31.0-37.0) g/dL RDW 16.9 H (11.5-15.5) % Plt Count 462 H (150-450) k/uL Neutrophils % (Manual) 94 % Lymphocytes % (Manual) 3 % Monocytes % (Manual) 4 % Neutrophils # (Manual) 12.97 H (1.3-7.7) k/uL Lymphocytes # (Manual) 0.41 L (1.0-4.8) k/uL Monocytes # (Manual) 0.55 (0-1.0) k/uL Nucleated RBCs 1 H (0-0) /100 WBC Manual Slide Review Performed Polychromasia Present Hypochromasia Moderate Poikilocytosis Slight Anisocytosis Slight PT (9.0-12.0) sec INR (<1.2) APTT (22.0-30.0) sec Sodium 133 L (137-145) mmol/L Potassium 5.2 H (3.5-5.1) mmol/L Chloride 97 L (98-107) mmol/L Carbon Dioxide 21 L (22-30) mmol/L Anion Gap 15 mmol/L BUN 101 H* (9-20) mg/dL Creatinine 2.38 H (0.66-1.25) mg/dL Est GFR (CKD-EPI)AfAm 30 (>60 ml/min/1.73 sqM) Est GFR (CKD-EPI)NonAf 26 (>60 ml/min/1.73 sqM) Glucose 283 H (74-99) mg/dL POC Glucose (mg/dL) (75-99) mg/dL POC Glu Bottler Helper ID Plasma Lactic Acid Anish (0.7-2.0) mmol/L Calcium 8.9 (8.4-10.2) mg/dL Magnesium 2.8 H (1.6-2.3) mg/dL Total Bilirubin 0.7 (0.2-1.3) mg/dL AST 38 (17-59) U/L ALT 44 (21-72) U/L Alkaline Phosphatase 77 (38-126) U/L Troponin I (0.000-0.034) ng/mL NT-Pro-B Natriuret Pep 6920 pg/mL Total Protein 6.7 (6.3-8.2) g/dL Albumin 3.8 (3.5-5.0) g/dL 12/09/18 12/09/18 12/09/18 Range/Units 03:20 03:20 03:20 WBC (3.8-10.6) k/uL RBC (4.30-5.90) m/uL Hgb (13.0-17.5) gm/dL Hct (39.0-53.0) % MCV (80.0-100.0) fL MCH (25.0-35.0) pg MCHC (31.0-37.0) g/dL RDW (11.5-15.5) % Plt Count (150-450) k/uL Neutrophils % (Manual) % Lymphocytes % (Manual) % Monocytes % (Manual) % Neutrophils # (Manual) (1.3-7.7) k/uL Lymphocytes # (Manual) (1.0-4.8) k/uL Monocytes # (Manual) (0-1.0) k/uL Nucleated RBCs (0-0) /100 WBC Manual Slide Review Polychromasia Hypochromasia Poikilocytosis Anisocytosis PT 10.5 (9.0-12.0) sec INR 1.0 (<1.2) APTT 21.4 L (22.0-30.0) sec Sodium (137-145) mmol/L Potassium (3.5-5.1) mmol/L Chloride (98-107) mmol/L Carbon Dioxide (22-30) mmol/L Anion Gap mmol/L BUN (9-20) mg/dL Creatinine (0.66-1.25) mg/dL Est GFR (CKD-EPI)AfAm (>60 ml/min/1.73 sqM) Est GFR (CKD-EPI)NonAf (>60 ml/min/1.73 sqM) Glucose (74-99) mg/dL POC Glucose (mg/dL) (75-99) mg/dL POC Glu Bottler Helper ID Plasma Lactic Acid Anish 2.7 H* (0.7-2.0) mmol/L Calcium (8.4-10.2) mg/dL Magnesium (1.6-2.3) mg/dL Total Bilirubin (0.2-1.3) mg/dL AST (17-59) U/L ALT (21-72) U/L Alkaline Phosphatase (38-126) U/L Troponin I 0.072 H* (0.000-0.034) ng/mL NT-Pro-B Natriuret Pep pg/mL Total Protein (6.3-8.2) g/dL Albumin (3.5-5.0) g/dL 12/09/18 Range/Units 03:21 WBC (3.8-10.6) k/uL RBC (4.30-5.90) m/uL Hgb (13.0-17.5) gm/dL Hct (39.0-53.0) % MCV (80.0-100.0) fL MCH (25.0-35.0) pg MCHC (31.0-37.0) g/dL RDW (11.5-15.5) % Plt Count (150-450) k/uL Neutrophils % (Manual) % Lymphocytes % (Manual) % Monocytes % (Manual) % Neutrophils # (Manual) (1.3-7.7) k/uL Lymphocytes # (Manual) (1.0-4.8) k/uL Monocytes # (Manual) (0-1.0) k/uL Nucleated RBCs (0-0) /100 WBC Manual Slide Review Polychromasia Hypochromasia Poikilocytosis Anisocytosis PT (9.0-12.0) sec INR (<1.2) APTT (22.0-30.0) sec Sodium (137-145) mmol/L Potassium (3.5-5.1) mmol/L Chloride (98-107) mmol/L Carbon Dioxide (22-30) mmol/L Anion Gap mmol/L BUN (9-20) mg/dL Creatinine (0.66-1.25) mg/dL Est GFR (CKD-EPI)AfAm (>60 ml/min/1.73 sqM) Est GFR (CKD-EPI)NonAf (>60 ml/min/1.73 sqM) Glucose (74-99) mg/dL POC Glucose (mg/dL) 322 H (75-99) mg/dL POC Glu Bottler Helper ID Debby Tracie Plasma Lactic Acid Anish (0.7-2.0) mmol/L Calcium (8.4-10.2) mg/dL Magnesium (1.6-2.3) mg/dL Total Bilirubin (0.2-1.3) mg/dL AST (17-59) U/L ALT (21-72) U/L Alkaline Phosphatase (38-126) U/L Troponin I (0.000-0.034) ng/mL NT-Pro-B Natriuret Pep pg/mL Total Protein (6.3-8.2) g/dL Albumin (3.5-5.0) g/dL Critical Care Time Critical Care Time: Yes Total Critical Care Time: 30 Critical Care Time: Critical Care Time Critical care time was exclusive of separately billable procedures and treating other patients and teaching time. Critical care was necessary to treat or prevent imminent or life-threatening det erioration. Given the critical condition in which the patient arrived, the patient was immediately assessed by myself and the nurse, and cardiac monitoring initiated due to the potential for rapid decompensation of the patient's clinical condition. During the course of the patients stay, I spent a considerable amount of time at the bedside performing serial re-evaluations of the patient's hemodynamic and clinical status because of the recognized potential threat to life or limb in this condition. I then had a chance to review not only all of the available current laboratory and radiographic studies obtained today, but I also reviewed old records available to me at the time. Additionally, any ancillary information available including cam specialist records were reviewed. Sequential vital signs were obtained. Disposition Clinical Impression: Anemia, Elevated troponin, Dyspnea, Congestive heart failure, Acute exacerbation of chronic obstructive airways disease Disposition: ADMITTED IP TO THIS HOSP Condition: Serious
[2018-12-09 03:28] LABS: Glucose,Whole Blood 322 mg/dL (75-99)
[2018-12-09 03:33] LABS: Anisocytosis Slight; HCT 24.2 % (39.0-53.0); HGB 7.7 gm/dL (13.0-17.5); Hypochromasia Moderate; MCHC 31.7 g/dL (31.0-37.0); Mean Platelet Volume 7.4; Platelet Count 462 k/uL (150-450); Poikilocytosis Slight; RBC 2.95 m/uL (4.30-5.90); RDW 16.9 % (11.5-15.5)
[2018-12-09 03:42] LABS: Albumin 3.8 g/dL (3.5-5.0); Calcium 8.9 mg/dL (8.4-10.2); Magnesium 2.8 mg/dL (1.6-2.3); Potassium 5.2 mmol/L (3.5-5.1); Total Bilirubin 0.7 mg/dL (0.2-1.3); Total Protein 6.7 g/dL (6.3-8.2)
[2018-12-09 03:50] LABS: Prothrombin Time 10.5 sec (9.0-12.0)
[2018-12-09 03:51] LABS: Partial Thromboplastin Time 21.4 sec (22.0-30.0)
--- NOTE | 2018-12-09 03:58 | XR ---
EXAM: XR Chest, 1 View CLINICAL HISTORY: ITS.REASON XR Reason: chest pain TECHNIQUE: Frontal view of the chest. COMPARISON: 12/04/18. FINDINGS: Lungs: Persistent bilateral lung opacities, more prominent in the lower lungs. Pleural space: Trace pleural effusions. Heart: Stable cardiomediastinal silhouette. Mediastinum: See above. Bones/joints: Stable. IMPRESSION: 1. Persistent bilateral lung opacities. Correlate clinically regarding edema or infection. 2. Trace pleural effusions.
[2018-12-09 04:17] LABS: Neutrophils % (M) 94 %; Nucleated Red Blood Cells 1 /100 WBC (0-0); Total Cells Counted 200
[2018-12-09 04:18] LABS: Lymphocytes # (M) 0.41 k/uL (1.0-4.8); Monocytes # (M) 0.55 k/uL (0-1.0); Polychromasia Present; WBC 13.8 k/uL (3.8-10.6)
[2018-12-09] MEDS ORDERED: NITROGLYCERIN SL TABS 0.4 MG TAB SUBLINGUAL PRN (05:13)
[2018-12-09] MEDS: IPRATROPIUM-ALBUTEROL 3 ML NEB INHALATION SCH ×4 (07:27→20:28)
[2018-12-09] MEDS: METOPROLOL TARTRATE 50 MG TAB PO SCH ×2 (08:43→21:03)
[2018-12-09] MEDS: ISOSORBIDE MONONITRATE ER 60 MG TAB.ER.24H PO SCH (08:43)
[2018-12-09] MEDS: APIXABAN 2.5 MG TABLET PO SCH ×2 (08:43→21:03)
[2018-12-09] MEDS: hydrALAZINE HCL 50 MG TAB PO SCH ×3 (08:43→21:03)
[2018-12-09] MEDS: amLODIPine 5 MG TAB PO SCH ×2 (08:43→21:03)
[2018-12-09] MEDS ORDERED: ASPIRIN 81 MG PO SCH (09:00)
[2018-12-09] MEDS: SODIUM CHLORIDE 0.9% 1,000 ML IV SCH (10:45)
[2018-12-09] MEDS: BUDESONIDE 1 MG/2 ML NEBU INHALATION SCH ×2 (11:42→20:28)
[2018-12-09] MEDS: PARoxetine 20 MG TAB PO SCH (11:45)
[2018-12-09] MEDS: HYDROcodone/APAP 10-325MG 1 EACH TAB PO PRN (11:45)
[2018-12-09 11:47] LABS: Glucose,Whole Blood 277 mg/dL (75-99)
--- NOTE | 2018-12-09 15:17 | P.HPIM ---
History of Present Illness H&P Date: 12/09/18 Chief Complaint: Short of breath History of presenting complaint: This is a pleasant 73-year-old patient with rather extensive medical history. Chronic stable medical conditions include coronary artery disease, GERD, hypertension, hyperlipidemia, osteoarthritis. BiPAP. recent admission patient had ventricular fibrillation and cardiac arrest in the hospital. He has sinus bradycardia and paroxysmal atrial fibrillation. Had a dual-chamber ICD placed by Dr. Kinney. for sinus bradycardia. Patient was readmitted on December 05 and discharged on December 08. [place] to be combination of COPD exacerbation and CHF exacerbation. Patient also had acute renal failure upon discharge as creatinine gone up from baseline. Creatinine on admission was 1.95 and upon discharge was 2.67. Yesterday when patient left patient was active walking in the hallway doing much better. Was prescribed BiPAP by the pulmonary team. Patient also uncontrolled anxiety that was well controlled with Paxil. was called at home around 3 in the morning that patient had some chest pain and short of breath. Was given his BiPAP and [place]. And given his extensive cardiac history it was decided to send the patient. Resource patient this morning is more restful. On a BiPAP. Breathing is better. Stable. Review of systems: GEN.: Tired EYES: None HEENT: None NECK: None RESPIRATORY: As above CARDIOVASCULAR: As above GASTROINTESTINAL: None GENITOURINARY: None MUSCULOSKELETAL: Pain in his joints LYMPHATICS: None HEMATOLOGICAL: None PSYCHIATRY: Anxiety NEUROLOGICAL: None Social history: Smoked a pack a day for over 60 years. Stopped about a year ago. . Does use a cane at home. Was sent to rehab yesterday Family history: Cancer and osteoarthritis Physical examination: VITAL SIGNS: 97.6, 69, 16, 154/84, 100% on BiPAP GENERAL: BiPAP is on, propped up in bed, not in distress. EYES: Pupils equal. Conjunctiva normal. HEENT: External appearance of nose and ears normal, oral cavity grossly normal. NECK: JVD possibly raised; masses not palpable. HEART: First and second heart sounds are normal; no edema. LUNGS: Respiratory rate increased, diminished breath sounds . ABDOMEN: Soft, nontender, liver spleen not palpable, no masses palpable. PSYCH: Alert and oriented x3; mood and affect anxiousl. NEUROLOGICAL: Cranial nerves grossly intact; no facial asymmetry, power and sensation grossly intact. LYMPHATICS: No lymph nodes palpable in the axilla and neck MUSCULOSKELETAL: Evidence of OA especially in the hands INVESTIGATIONS, reviewed in the clinical context: White count 13.8, hemoglobin 7.7, platelets 462, potassium 5.2, bun 1.01, creatinine 2.38 Labs on December 01 showed a BUN of 25 and a creatinine 1.63. Creatinine was 2.67 on December 08 EKG tracing personally reviewed by me-atrial fibrillation with rate control and paced rhythm Chest x-ray film personally reviewed by me-questionable venous prominence From previous admission: Perfusion scan suspicion low for PE 2-D echo limited-moderate tricuspid regurgitation, severe pulmonary hypertension Cardiac catheterization on November [address] Arcos shows significant disease, for medical management Chest x-ray film personally reviewed by me shows cardiomegaly and some venous prominence that included the horizontal fissure 2-D echo from recently shows EF of 50-55% Assessment: -Acute kidney injury from diuresis from Lasix. Patient's Lasix was held temporarily before discharge -Angina in a patient with known coronary artery disease -Acute COPD exacerbation and an ex-smoker -chronic congestive heart failure exacerbation from diastolic dysfunction EF 50- 55% -Moderate tricuspid regurgitation, nontraumatic -Severe secondary pulmonary hypertension from probably COPD and CHF -Severe coronary artery disease, with history of bypass and stent, for medical management -Primary osteoarthritis -Persistent atrial flutter fibrillation, rate controlled -GERD -Hyperlipidemia -Essential hypertension -Severe peripheral arterial disease -GERD -Anxiety not otherwise specified, uncontrolled Plan: Will gently hydrate the patient. Other medications resumed. BiPAP to continue. Consultation to cardiology and pulmonary is being done. Had a lengthy discussion with the patient and . They do understand overall prognosis is guarded. Patient was able to walk the length of the car door in the hospital yesterday. Past Medical History Past Medical History: Atrial Fibrillation, Coronary Artery Disease (CAD), Chest Pain / Angina, Heart Failure, COPD, Eye Disorder, GERD/Reflux, GI Bleed, Hyperlipidemia, Hypertension, Myocardial Infarction ([place]), Osteoarthritis (OA), Pneumonia, Vascular Disorder Additional Past Medical History / Comment(s): Coronary artery disease with previous bypass surgery in 2006, previous coronary artery stenting in 2000, CHF with diastolic dysfunction and the patient is a preserved LV function based on recent echocardiogram, COPD with an FEV1 of 63% of predicted, hypertension, hyperlipidemia, acid reflux, osteoarthritis, previous history of right-sided pleural effusion secondary to CHF, recovered, chronic atrial fibrillation, hiatal hernia with previous history of gastric ulcer and the patient had a EGD and colonoscopy that was done in July 2017 indicating gastritis with negative H. 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 Patient has also hemorrhoids, chronic back pain, migraine, acid reflux, previous history of GI bleed, osteoarthritis, peripheral vascular disease Last Myocardial Infarction Date:: 2006 History of Any Multi-Drug Resistant Organisms: None Reported Past Surgical History: Appendectomy, Coronary Bypass/CABG, Heart Catheterization With Stent, Pacemaker Additional Past Surgical History / Comment(s): EGD/COLONOSCOPY WITH POLYPECTOMY, TRIPLE CABG 2006. PCI/STENT IN 2000. STENTS BILATERAL LEGS, BILATERAL CATARACT REMOVAL. Past Anesthesia/Blood Transfusion Reactions: No Reported Reaction Date of Last Stent Placement:: 2000 Type of Cardiac Device: Permanent Pacemaker, AICD Device Placement Date:: 11/21/2018 Past Psychological History: No Psychological Hx Reported Additional Psychological History / Comment(s): Pt resides with his spouse. He uses a cane to ambulate. He drives. Smoking Status: Never smoker Past Alcohol Use History: None Reported Additional Past Alcohol Use History / Comment(s): SMOKED FROM AGE 12, 1/2 PPD, QUIT 2006. Past Drug Use History: None Reported - Past Family History Mother Family Medical History: Cancer, Osteoarthritis (OA) Medications and Allergies Home Medications Medication Instructions Recorded Confirmed Type Nitroglycerin Sl Tabs [Nitrostat] 0.4 mg SUBLINGUAL Q5M PRN 11/22/18 12/09/18 History Potassium Chloride [Klor-Con 20] 20 meq PO DAILY 11/22/18 12/09/18 History Apixaban [Eliquis] 2.5 mg PO BID tablet 12/01/18 12/09/18 Rx Aspirin 81 mg PO DAILY chew 12/01/18 12/09/18 Rx Atorvastatin [Lipitor] 40 mg PO HS #30 tab 12/01/18 12/09/18 Rx Furosemide [Lasix] 40 mg PO DAILY #30 tab 12/01/18 12/09/18 Rx Isosorbide Mononitrate ER [Imdur] 120 mg PO DAILY #60 tab.er.24h 12/01/18 Rx Metoprolol Tartrate [Lopressor] 100 mg PO BID #60 tab 12/01/18 12/09/18 Rx amLODIPine [Norvasc] 5 mg PO BID #60 tab 12/01/18 12/09/18 Rx hydrALAZINE HCL [Apresoline] 100 mg PO TID #90 tab 12/01/18 12/09/18 Rx Budesonide [Pulmicort] 1 mg INHALATION RT-BID nebu 12/08/18 12/09/18 Rx Ipratropium-Albuterol Nebulize 3 ml INHALATION QID #1 ampul.neb 12/08/18 12/09/18 Rx [Duoneb 0.5 mg-3 mg/3 ml Soln] PARoxetine [Paxil] 20 mg PO DAILY tab 12/08/18 12/09/18 Rx HYDROcodone/APAP 10-325MG [[place] 1 tab PO Q4H PRN 12/09/18 12/09/18 History 10-325] predniSONE See Taper PO DAILY 12/09/18 12/09/18 History Allergies Allergy/AdvReac Type Severity Reaction Status Date / Time No Known Allergies Allergy Verified 12/09/18 07:08 Physical Exam Vitals: Vital Signs Temp Pulse Pulse Resp BP BP Pulse Ox 12/09/18 11:40 72 12/09/18 11:30 72 12/09/18 11:29 97.6 F 66 30 H 142/76 90 L 12/09/18 08:00 97.6 F 70 14 166/75 98 12/09/18 07:42 76 12/09/18 07:28 80 12/09/18 06:10 97.5 F L 67 16 171/79 100 12/09/18 05:39 97.6 F 69 16 154/84 100 12/09/18 04:00 68 16 134/74 100 12/09/18 03:17 97.8 F 70 22 134/74 95 Intake and Output 12/08/18 12/09/18 12/09/18 22:59 06:59 14:59 Output Total 275 400 Balance -275 -400 Output: Urine 275 400 Other: Voiding Method Urinal Diaper Weight 70.5 kg Results CBC & Chem 7: 12/09/18 03:20 12/09/18 03:20 Labs: Abnormal Lab Results - Last 24 Hours (Table) 12/09/18 12/09/18 12/09/18 Range/Units 03:20 03:20 03:20 WBC 13.8 H (3.8-10.6) k/uL RBC 2.95 L (4.30-5.90) m/uL Hgb 7.7 L (13.0-17.5) gm/dL Hct 24.2 L (39.0-53.0) % RDW 16.9 H (11.5-15.5) % Plt Count 462 H (150-450) k/uL Neutrophils # (Manual) 12.97 H (1.3-7.7) k/uL Lymphocytes # (Manual) 0.41 L (1.0-4.8) k/uL Nucleated RBCs 1 H (0-0) /100 WBC APTT 21.4 L (22.0-30.0) sec Sodium 133 L (137-145) mmol/L Potassium 5.2 H (3.5-5.1) mmol/L Chloride 97 L (98-107) mmol/L Carbon Dioxide 21 L (22-30) mmol/L BUN 101 H* (9-20) mg/dL Creatinine 2.38 H (0.66-1.25) mg/dL Glucose 283 H (74-99) mg/dL POC Glucose (mg/dL) (75-99) mg/dL Plasma Lactic Acid Anish (0.7-2.0) mmol/L Magnesium 2.8 H (1.6-2.3) mg/dL Troponin I (0.000-0.034) ng/mL 12/09/18 12/09/18 12/09/18 Range/Units 03:20 03:20 03:21 WBC (3.8-10.6) k/uL RBC (4.30-5.90) m/uL Hgb (13.0-17.5) gm/dL Hct (39.0-53.0) % RDW (11.5-15.5) % Plt Count (150-450) k/uL Neutrophils # (Manual) (1.3-7.7) k/uL Lymphocytes # (Manual) (1.0-4.8) k/uL Nucleated RBCs (0-0) /100 WBC APTT (22.0-30.0) sec Sodium (137-145) mmol/L Potassium (3.5-5.1) mmol/L Chloride (98-107) mmol/L Carbon Dioxide (22-30) mmol/L BUN (9-20) mg/dL Creatinine (0.66-1.25) mg/dL Glucose (74-99) mg/dL POC Glucose (mg/dL) 322 H (75-99) mg/dL Plasma Lactic Acid Anish 2.7 H* (0.7-2.0) mmol/L Magnesium (1.6-2.3) mg/dL Troponin I 0.072 H* (0.000-0.034) ng/mL 12/09/18 12/09/18 Range/Units 08:21 11:45 WBC (3.8-10.6) k/uL RBC (4.30-5.90) m/uL Hgb (13.0-17.5) gm/dL Hct (39.0-53.0) % RDW (11.5-15.5) % Plt Count (150-450) k/uL Neutrophils # (Manual) (1.3-7.7) k/uL Lymphocytes # (Manual) (1.0-4.8) k/uL Nucleated RBCs (0-0) /100 WBC APTT (22.0-30.0) sec Sodium (137-145) mmol/L Potassium (3.5-5.1) mmol/L Chloride (98-107) mmol/L Carbon Dioxide (22-30) mmol/L BUN (9-20) mg/dL Creatinine (0.66-1.25) mg/dL Glucose (74-99) mg/dL POC Glucose (mg/dL) 277 H (75-99) mg/dL Plasma Lactic Acid Anish (0.7-2.0) mmol/L Magnesium (1.6-2.3) mg/dL Troponin I 0.103 H* (0.000-0.034) ng/mL Thrombosis Risk Factor Assmnt - Choose All That Apply Any of the Below Risk Factors Present?: Yes Each Factor Represents 1 point: Abnormal pulmonary function (COPD), Heart failure (<1month), History of prior major surgery (<1month) Other Risk Factors: Yes Each Risk Factor Represents 3 Points: Age 75 years or older Other congenital or acquired thrombophilia - If yes, enter type in comment: No Thrombosis Risk Factor Assessment Total Risk Factor Score: 6 Thrombosis Risk Factor Assessment Level: High Risk
[2018-12-09] MEDS: predniSONE 20 MG TAB PO SCH (16:07)
[2018-12-09 21:02] LABS: Glucose,Whole Blood 239 mg/dL (75-99)
[2018-12-09] MEDS: ATORVASTATIN 40 MG TAB PO SCH (21:03)
[2018-12-09 23:16] LABS: Glucose,Whole Blood 271 mg/dL (75-99)
[2018-12-09] MEDS: INSULIN ASPART (NovoLOG) 100 UNIT/ML VIAL SQ SCH (23:48)
[2018-12-10 06:30] LABS: Glucose,Whole Blood 252 mg/dL (75-99)
[2018-12-10 06:48] LABS: Calcium 8.9 mg/dL (8.4-10.2); Potassium 4.9 mmol/L (3.5-5.1)
[2018-12-10] MEDS: IPRATROPIUM-ALBUTEROL 3 ML NEB INHALATION SCH ×4 (07:44→19:06)
[2018-12-10] MEDS: BUDESONIDE 1 MG/2 ML NEBU INHALATION SCH ×2 (07:44→19:06)
[2018-12-10] MEDS: ASPIRIN 325 MG TAB PO SCH (08:57)
[2018-12-10] MEDS: amLODIPine 5 MG TAB PO SCH ×2 (08:58→20:26)
[2018-12-10] MEDS: METOPROLOL TARTRATE 50 MG TAB PO SCH ×2 (08:58→20:25)
[2018-12-10] MEDS: PARoxetine 20 MG TAB PO SCH (08:58)
[2018-12-10] MEDS: predniSONE 20 MG TAB PO SCH (08:58)
[2018-12-10] MEDS: hydrALAZINE HCL 50 MG TAB PO SCH ×3 (08:58→20:26)
[2018-12-10] MEDS: HYDROcodone/APAP 10-325MG 1 EACH TAB PO PRN ×2 (08:58→15:40)
[2018-12-10] MEDS: ISOSORBIDE MONONITRATE ER 60 MG TAB.ER.24H PO SCH (08:58)
[2018-12-10] MEDS: APIXABAN 2.5 MG TABLET PO SCH ×2 (08:58→20:26)
[2018-12-10] MEDS: NITROGLYCERIN SL TABS 0.4 MG TAB SUBLINGUAL PRN ×2 (09:25→09:30)
[2018-12-10] MEDS: SODIUM CHLORIDE 0.9% 1,000 ML IV SCH (09:36)
--- NOTE | 2018-12-10 11:50 | PN ---
PROGRESS NOTE Antonio is a 73-year-old gentleman that is admitted to hospital with COPD and CHF exacerbation. This morning he is on BiPAP, doing better, shortness of breath has improved and does not have any leg edema. The patient is currently on Norvasc 5 mg b.i.d., Eliquis 2.5 b.i.d., Lipitor, Apresoline, Imdur, Lopressor, and Paxil. EXAM: He is comfortable at rest. Vital signs are stable. Chest exam reveals diminished air entry at the bases. Heart exam reveals first and second heart sounds. Systolic murmur at the left lower sternal border. Abdomen is soft. Examinations of the extremities revealed mild edema. Peripheral pulses are palpable. LAB: Show that the potassium is 4.9, BUN is 88, creatinine is 1.96. ASSESSMENT: 1. Shortness of breath, primarily due to chronic obstructive pulmonary disease exacerbation. 2. Hypertension. 3. Dyslipidemia. 4. Coronary artery disease. 5. Persistent atrial fibrillation. The patient will continue his medications. MMODL / IJN: [id number] /
--- NOTE | 2018-12-10 11:50 | CONS ---
CONSULTATION This is a patient who was recently in the hospital. He was just discharged. He presented to the emergency room on December 09 with complaints of shortness of breath and chest pain. He is a 73-year-old male who was discharged to one of the local nursing homes. He apparently started complaining of increasing shortness of breath and chest pain. He also had increased work of breathing. He was using his BiPAP device. He apparently was given some [place] and 2 doses of nitroglycerin. Apparently at that point he felt a bit better and the chest pain resolved. He was transported by EMS to the ER to be evaluated. Currently, he is resting comfortably. He is currently on his BiPAP and previous settings. When he was here last, he was here primarily for hypoxemic respiratory failure secondary to systolic congestive heart failure. He apparently has quite severe left ventricular dysfunction. In addition, he has a history of COPD which is relatively stable. His FEV1 is 63% of predicted suggesting moderate disease. He has a history of CHF, polymorphic ventricular tachycardia, acute hypertensive urgency/emergency, chronic atrial fibrillation, chronic anemia, stage 3 chronic kidney disease, DJD, chronic back pain, previous history of bypass grafting, as well as multiple other medical problems and comorbidities. Currently, the patient is resting comfortably on BiPAP. Denies any complaints whatsoever. He is not a particularly good historian CURRENT MEDICATIONS: Reviewed. He is on nitroglycerin tablets, potassium 20 mEq, Eliquis, aspirin, Lipitor, Lasix, Imdur, Lopressor, Norvasc, Apresoline, Pulmicort, [place], DuoNeb, Paxil, and prednisone. ALLERGIES: Denied. MEDICAL HISTORY: As previously mentioned includes, among other things, atrial fibrillation, CAD with previous bypass grafting, angina pectoris, CHF, moderate COPD, GERD, GI bleed, hyperlipidemia, hypertension, myocardial infarction, DJD, pneumonia, previous PCI with stents, pleural effusion, hiatal hernia, colonic polyp, among other things. SURGICAL HISTORY: Includes appendectomy, bypass grafting, catheterization with stent placement and pacemaker insertion. He has also had EGD and colonoscopy with polypectomy and lower extremity stent placement. He has had cataract surgery as well. SOCIAL HISTORY: Positive for previous tobacco use. Denies any alcohol or illicit drug use. FAMILY HISTORY: Positive for mother with cancer and DJD. REVIEW OF SYSTEMS: CONSTITUTIONAL: Negative. NEUROLOGIC: Negative. HEENT: Negative. CARDIOVASCULAR: Chest pain, shortness of breath. PULMONARY: Shortness of breath. GI: Negative. : Negative. RHEUMATOLOGIC: Negative. IMMUNOLOGIC: Negative. ENDOCRINOLOGIC: Negative. DERMATOLOGIC: Negative. PHYSICAL EXAMINATION: VITAL SIGNS: Current vital signs reviewed. Temperature 97.9, heart rate 70, respiratory rate 18, blood pressure 136/64, mean 88. Saturations 98% on BiPAP. Appears in no acute distress. BiPAP mask in place. HEENT: Examination is grossly unremarkable. NECK: Supple. Full range of motion. No adenopathy or thyromegaly. Neck veins are not distended. CARDIOVASCULAR: Examination reveals regular rhythm rate. Heart rate about 70 beats per minute. A few extra systoles are noted. LUNGS: Examination reveals coarse rhonchi. There are a few scattered crackles. No wheezes. Breath sounds equal bilaterally. ABDOMEN: Soft, bowel sounds are heard. EXTREMITIES are intact. Minimal edema. SKIN: Without rash. NEUROLOGIC: Examination appears to be relatively normal. LABS: Reviewed. White count 13.8, hemoglobin 7.7, hematocrit 24.2, platelet count 462,000, PT/INR normal. PTT 21.4. Sodium, potassium, chloride, CO2 all normal. Anion gap is 10. BUN and creatinine were 88 and 1.96. That compares with 101 and 2.28 yesterday. The rest of his labs look okay. N terminal proBNP are elevated at 6920. Troponin 0.126. A chest x-ray is consistent with likely pulmonary edema and/or pneumonia. I prefer the former not the latter. There are also small pleural effusions. Medications are reviewed. He is on amlodipine, Eliquis, aspirin, Lipitor, Pulmicort, hydralazine, [place], insulin, DuoNeb, Imdur, metoprolol, nitroglycerin, Paxil, prednisone and an IV of 0.9 at 50 mL an hour. ASSESSMENT: 1. Shortness of breath and chest pain, which may relate to underlying ischemic heart disease and mild fluid overload. 2. Chronic obstructive pulmonary disease, moderate in severity, but not particularly active at this time. 3. Recent admission for acute on chronic hypoxemic respiratory failure secondary to systolic heart failure. 4. History of recent polymorphic ventricular tachycardia, status post cardioversion and subsequent AICD placement. 5. Recent episode of hypertensive emergency. 6. History of chronic atrial fibrillation. 7. Chronic anemia. 8. Stage 3 chronic kidney disease. 9. Degenerative joint disease. 10.Chronic back pain. 11.Prior history of bypass grafting. 12.Multiple other medical problems and comorbidities. PLAN: The patient seems to be doing relatively well. We will continue to follow. Medications are reviewed. He is already on DuoNeb and Pulmicort. He is getting a dose of prednisone that is small. I believe this is primarily heart failure rather than COPD. Chest x-ray may indicate some bibasilar infiltrates. We will continue to watch him closely. He is not producing any phlegm at this time. No fever or chills to suggest infection. Prognosis is guarded. MMODL / IJN: [id number] /
[2018-12-10 12:52] LABS: Glucose,Whole Blood 288 mg/dL (75-99)
[2018-12-10] MEDS: INSULIN ASPART (NovoLOG) 100 UNIT/ML VIAL SQ SCH ×3 (12:53→20:26)
[2018-12-10] MEDS: ATORVASTATIN 40 MG TAB PO SCH (20:26)
--- NOTE | 2018-12-10 20:50 | P.PN ---
Progress Note - Text Progress Note Date: 12/10/18 Chief Complaint: Short of breath Interval history: This is a pleasant 73-year-old patient with rather extensive medical history. Chronic stable medical conditions include coronary artery disease, GERD, hypertension, hyperlipidemia, osteoarthritis. BiPAP. recent admission patient had ventricular fibrillation and cardiac arrest in the hospital. He has sinus bradycardia and paroxysmal atrial fibrillation. Had a dual-chamber ICD placed by Dr. Kinney. for sinus bradycardia. Patient was readmitted on December 05 and discharged on December 08. [place] to be combination of COPD exacerbation and CHF exacerbation. Patient also had acute renal failure upon discharge as creatinine gone up from baseline. Creatinine on admission was 1.95 and upon discharge was 2.67. Yesterday when patient left patient was active walking in the hallway doing much better. Was prescribed BiPAP by the pulmonary team. Patient also uncontrolled anxiety that was well controlled with Paxil. was called at home around 3 in the morning that patient had some chest pain and short of breath. Was given his BiPAP and [place]. And given his extensive cardiac history it was decided to send the patient. Admitted with acute kidney injury from diarrhea restless, COPD exacerbation, angina Today-laying in bed. BiPAP in place. Did talk to patient's nurse at length. Patient does not really want to participate this was to be in bed. Does not really want to eat. Seems he is giving up. Review of systems: Was done for constitutional, cardiovascular, GI, pulmonary. relevant finding as above Active Medications Hydrocodone Bitart/Acetaminophen ([place] 10) 1 each PO Q4H PRN PRN Reason: Moderate Pain Last Admin: 12/10/18 15:40 Dose: 1 each Documented by: Albuterol/Ipratropium (Duoneb 0.5 Mg-3 Mg/3 Ml Soln) 3 ml INHALATION QID [facility] Last Admin: 12/10/18 19:06 Dose: 3 ml Documented by: Amlodipine Besylate (Norvasc) 5 mg PO BID [facility] Last Admin: 12/10/18 20:26 Dose: 5 mg Documented by: Apixaban (Eliquis) 2.5 mg PO BID [facility] Last Admin: 12/10/18 20:26 Dose: 2.5 mg Documented by: Aspirin (Aspirin) 325 mg PO DAILY [facility] Last Admin: 12/10/18 08:57 Dose: 325 mg Documented by: Atorvastatin Calcium (Lipitor) 40 mg PO HS [facility] Last Admin: 12/10/18 20:26 Dose: 40 mg Documented by: Budesonide (Pulmicort) 1 mg INHALATION RT-BID [facility] Last Admin: 12/10/18 19:06 Dose: 1 mg Documented by: Hydralazine HCl (Apresoline) 100 mg PO TID [facility] Last Admin: 12/10/18 20:26 Dose: 100 mg Documented by: Sodium Chloride (Saline 0.9%) 1,000 mls @ 50 mls/hr IV .Q20H [facility] Last Admin: 12/10/18 09:36 Dose: 50 mls/hr Documented by: Insulin Aspart (Novolog) 0 unit SQ ACHS [facility]; Protocol Last Admin: 12/10/18 20:26 Dose: Not Given Documented by: Isosorbide Mononitrate (Imdur) 120 mg PO DAILY [facility] Last Admin: 12/10/18 08:58 Dose: 120 mg Documented by: Metoprolol Tartrate (Lopressor) 100 mg PO BID [facility] Last Admin: 12/10/18 20:25 Dose: 100 mg Documented by: Nitroglycerin (Nitrostat) 0.4 mg SUBLINGUAL Q5M PRN PRN Reason: Chest Pain Last Admin: 12/10/18 09:30 Dose: 0.4 mg Documented by: Paroxetine HCl (Paxil) 20 mg PO DAILY [facility] Last Admin: 12/10/18 08:58 Dose: 20 mg Documented by: Prednisone () 40 mg PO DAILY [facility] Last Admin: 12/10/18 08:58 Dose: 40 mg Documented by: . Physical examination: VITAL SIGNS: 97.7, 60, 14, 170/68, 96% on BiPAP GENERAL: BiPAP is on, propped up in bed, appears withdrawal EYES: Pupils equal. Conjunctiva normal. HEENT: External appearance of nose and ears normal, oral cavity grossly normal. NECK: JVD possibly raised; masses not palpable. HEART: First and second heart sounds are normal; no edema. LUNGS: Respiratory rate increased, diminished breath sounds . ABDOMEN: Soft, nontender, liver spleen not palpable, no masses palpable. PSYCH: He is his questions but is appears withdrawn. INVESTIGATIONS, reviewed in the clinical context: Bun 88, creatinine 1.96 Admission tests: White count 13.8, hemoglobin 7.7, platelets 462, potassium 5.2, bun 1.01, creatinine 2.38 Labs on December 01 showed a BUN of 25 and a creatinine 1.63. Creatinine was 2.67 on December 08 EKG tracing personally reviewed by me-atrial fibrillation with rate control and paced rhythm Chest x-ray film personally reviewed by me-questionable venous prominence From previous admission: Perfusion scan suspicion low for PE 2-D echo limited-moderate tricuspid regurgitation, severe pulmonary hypertension Cardiac catheterization on November [address] Arcos shows significant disease, for medical management Chest x-ray film personally reviewed by me shows cardiomegaly and some venous prominence that included the horizontal fissure 2-D echo from recently shows EF of 50-55% Assessment: -Acute kidney injury from diuresis from Lasix. , Improving -Angina in a patient with known coronary artery disease -Acute COPD exacerbation and an ex-smoker -chronic congestive heart failure exacerbation from diastolic dysfunction EF 50- 55% -Moderate tricuspid regurgitation, nontraumatic -Severe secondary pulmonary hypertension from probably COPD and CHF -Severe coronary artery disease, with history of bypass and stent, for medical management -Primary osteoarthritis -Persistent atrial flutter fibrillation, rate controlled -GERD -Hyperlipidemia -Essential hypertension -Severe peripheral arterial disease -GERD -Anxiety not otherwise specified, uncontrolled Plan: We will DC the IV fluids. Has creatinine significant improvement. Did tell the nurse to have the come in tomorrow around 4 PM level family meeting. Resume patient's Lasix in the morning. Prognosis guarded.
[2018-12-11] MEDS: SODIUM CHLORIDE 0.9% 1,000 ML IV SCH (04:02)
[2018-12-11] MEDS: INSULIN ASPART (NovoLOG) 100 UNIT/ML VIAL SQ SCH ×3 (06:49→16:41)
[2018-12-11] MEDS: IPRATROPIUM-ALBUTEROL 3 ML NEB INHALATION SCH ×3 (08:07→16:13)
[2018-12-11] MEDS: BUDESONIDE 1 MG/2 ML NEBU INHALATION SCH (08:07)
[2018-12-11] MEDS: HYDROcodone/APAP 10-325MG 1 EACH TAB PO PRN ×2 (08:44→12:57)
[2018-12-11] MEDS: amLODIPine 5 MG TAB PO SCH (08:45)
[2018-12-11] MEDS: hydrALAZINE HCL 50 MG TAB PO SCH ×2 (08:45→15:41)
[2018-12-11] MEDS: ASPIRIN 325 MG TAB PO SCH (08:45)
[2018-12-11] MEDS: APIXABAN 2.5 MG TABLET PO SCH (08:45)
[2018-12-11] MEDS: METOPROLOL TARTRATE 50 MG TAB PO SCH (08:45)
[2018-12-11] MEDS: PARoxetine 20 MG TAB PO SCH (08:45)
[2018-12-11] MEDS: ISOSORBIDE MONONITRATE ER 60 MG TAB.ER.24H PO SCH (08:45)
[2018-12-11] MEDS: predniSONE 20 MG TAB PO SCH (08:45)
[2018-12-11] MEDS ORDERED: FUROSEMIDE 40 MG TAB PO SCH (09:00)
[2018-12-11] MEDS ORDERED: FUROSEMIDE 10 MG/ML 4 ML VIAL IV SCH (09:00)
--- NOTE | 2018-12-11 09:25 | P.PN ---
Subjective Progress Note Date: 12/11/18 Principal diagnosis: Shortness of breath, and chest pain, possibly related to underlying ischemic heart disease and mild fluid overload, chronic obstructive pulmonary disease On 12/11/2018 patient seen in follow-up on selective care unit, she remains on BiPAP pressures of 10 and 5 and FiO2 of 45%, still dyspneic, no acute distress, with the most part he remains BiPAP dependent, his been able to come off to nasal cannula, however she desats, becomes quite dyspneic. He is on IV diuretics, he milligram daily, and he is in mild negative fluid balance. He is on oral prednisone, and nebulized bronchodilators. He states he has intermittent chest discomfort, remains in A. fib controlled rate, cardiology is following. Troponins mildly elevated, likely related to CHF and chronic kidney disease. Will obtain follow-up chest x-ray tomorrow, creased BiPAP pressures to 12/6 and 45% Objective - Vital Signs Vital signs: Vital Signs Temp 96.0 F L 12/11/18 08:00 Pulse 78 12/11/18 08:26 Resp 20 12/11/18 08:00 BP 154/69 12/11/18 08:00 Pulse Ox 98 12/11/18 08:00 Intake & Output 12/10/18 12/11/18 12/11/18 18:59 06:59 18:59 Intake Total 236 240 Output Total 600 175 500 Balance -364 65 -500 Intake: Oral 236 240 Output: Urine 600 175 200 Stool 300 Other: Voiding Method Urinal Urinal Urinal # Voids 1 - Exam GENERAL EXAM: Alert, pleasant, 73-year-old white male, on BiPAP support, currently with pressures of 10 and 5 and 45%, mildly dyspneic, comfortable in no apparent distress. HEAD: Normocephalic/atraumatic. EYES: Normal reaction of pupils, equal size. Conjunctiva pink, sclera white. NOSE: Clear with pink turbinates. THROAT: No erythema or exudates. NECK: No masses, no JVD, no thyroid enlargement, no adenopathy. CHEST: No chest wall deformity. Symmetrical expansion. LUNGS: Equal air entry with diminished breath sounds CVS: Regular rate and rhythm, normal S1 and S2, no gallops, no murmurs, no rubs ABDOMEN: Soft, nontender. No hepatosplenomegaly, normal bowel sounds, no guarding or rigidity. EXTREMITIES: No clubbing, no edema, no cyanosis, 2+ pulses and upper and lower extremities. MUSCULOSKELETAL: Muscle strength and tone normal. SPINE: No scoliosis or deformity SKIN: No rashes CENTRAL NERVOUS SYSTEM: Alert and oriented -3. No focal deficits, tone is normal in all 4 extremities. PSYCHIATRIC: Alert and oriented -3. Appropriate affect. Intact judgment and insight. - Labs CBC & Chem 7: 12/09/18 03:20 12/10/18 05:42 Labs: Abnormal Lab Results - Last 24 Hours (Table) 12/10/18 Range/Units 12:51 POC Glucose (mg/dL) 288 H (75-99) mg/dL Assessment and Plan Plan: Assessment: #1. Shortness of breath, and chest pain, likely related to underlying ischemic heart disease and mild fluid overload, and congestive heart failure with severely impaired left ventricular systolic function #2. Chronic objective pulmonary disease, moderately severe, not particularly active at this time #3. Recent admission for acute on chronic hypoxemic respiratory failure secondary to systolic heart failure #4. History of polymorphic ventricular tachycardia, status post cardioversion and subsequent AICD placement #5. History of moderately severe chronic obstructive pulmonary disease #6. History of chronic atrial fibrillation on Eliquis #7. Chronic anemia #8. Stage III chronic kidney disease #9. Degenerative joint disease #10. Chronic back pain #11. Previous history of bypass grafting #12. Multiple other medical problems and comorbidities Plan: We'll put the patient on scheduled dose of IV Lasix, we'll continue the oral steroids, nebulized bronchodilators, we'll increase the BiPAP pressures to 12/6 and 45%. Patient is still dyspneic, having intermittent chest discomfort, cardiology is following, no significant cough or congestion, he continues on oral anticoagulation. We'll obtain on follow-up chest x-ray tomorrow, daily la bs, electrolytes and renal profile, accurate intake and output, and daily weights, overall prognosis is extremely guarded. I performed a history & physical examination of the patient and discussed their management with my nurse practitioner, Saray Galarza. I reviewed the nurse practitioner's note and agree with the documented findings and plan of care. Lung sounds are diminished breath sounds. The findings and the impression was discussed with the patient. I attest to the documentation by the nurse practitioner. Time with Patient: Less than 30
--- NOTE | 2018-12-11 12:59 | PN ---
PROGRESS NOTE A 73-year-old gentleman with severe COPD, congestive heart failure that is admitted to hospital with shortness of breath primarily from COPD exacerbation. He remains on BiPAP and remains short of breath. Denies any chest pain. EXAM: Mild respiratory distress. Heart rate is 78 beats per minute. Blood pressure is 150/69, respiratory rate is 24. Chest exam reveals diminished air entry bilaterally with occasional rhonchi. Heart exam reveals first and second heart sounds. No gallop. Exam of extremities did not reveal any edema. LABS: Show a potassium of 4.9, BUN is 88, creatinine is 1.96. ASSESSMENT: Shortness of breath due to a combination of congestive heart failure and chronic obstructive pulmonary disease exacerbations. Prognosis guarded. No further cardiac interventions at this time. Continue with the current care. Prognosis is guarded. MMODL / IJN: [id number] /
[2018-12-11] MEDS ORDERED: LORazepam 0.5 MG TAB PO PRN (15:21)
--- NOTE | 2018-12-11 15:23 | P.PN ---
Progress Note - Text Progress Note Date: 12/11/18 Chief Complaint: Short of breath Interval history: This is a pleasant 73-year-old patient with rather extensive medical history. Chronic stable medical conditions include coronary artery disease, GERD, hypertension, hyperlipidemia, osteoarthritis. BiPAP. recent admission patient had ventricular fibrillation and cardiac arrest in the hospital. He has sinus bradycardia and paroxysmal atrial fibrillation. Had a dual-chamber ICD placed by Dr. Kinney. for sinus bradycardia. Patient was readmitted on December 05 and discharged on December 08. [place] to be combination of COPD exacerbation and CHF exacerbation. Patient also had acute renal failure upon discharge as creatinine gone up from baseline. Creatinine on admission was 1.95 and upon discharge was 2.67. Yesterday when patient left patient was active walking in the hallway doing much better. Was prescribed BiPAP by the pulmonary team. Patient also uncontrolled anxiety that was well controlled with Paxil. was called at home around 3 in the morning that patient had some chest pain and short of breath. Was given his BiPAP and [place]. And given his extensive cardiac history it was decided to send the patient. Admitted with acute kidney injury from diarrhea restless, COPD exacerbation, a ngina Today-patient getting parts of anxiety. at the bedside. Patient really does not want any more treatments. He wants morphine. Review of systems: Was done for constitutional, cardiovascular, GI, pulmonary. relevant finding as above Active Medications Hydrocodone Bitart/Acetaminophen ([place] 10) 1 each PO Q4H PRN PRN Reason: Moderate Pain Last Admin: 12/11/18 12:57 Dose: 1 each Documented by: Albuterol/Ipratropium (Duoneb 0.5 Mg-3 Mg/3 Ml Soln) 3 ml INHALATION QID [facility] Last Admin: 12/11/18 11:42 Dose: 3 ml Documented by: Amlodipine Besylate (Norvasc) 5 mg PO BID [facility] Last Admin: 12/11/18 08:45 Dose: 5 mg Documented by: Apixaban (Eliquis) 2.5 mg PO BID [facility] Last Admin: 12/11/18 08:45 Dose: 2.5 mg Documented by: Aspirin (Aspirin) 325 mg PO DAILY [facility] Last Admin: 12/11/18 08:45 Dose: 325 mg Documented by: Atorvastatin Calcium (Lipitor) 40 mg PO HS [facility] Last Admin: 12/10/18 20:26 Dose: 40 mg Documented by: Budesonide (Pulmicort) 1 mg INHALATION RT-BID [facility] Last Admin: 12/11/18 08:07 Dose: 1 mg Documented by: Furosemide (Lasix) 40 mg IV DAILY [facility] Last Admin: 12/11/18 08:54 Dose: 40 mg Documented by: Hydralazine HCl (Apresoline) 100 mg PO TID [facility] Last Admin: 12/11/18 08:45 Dose: 100 mg Documented by: Insulin Aspart (Novolog) 0 unit SQ ACHS [facility]; Protocol Last Admin: 12/11/18 11:51 Dose: Not Given Documented by: Isosorbide Mononitrate (Imdur) 120 mg PO DAILY [facility] Last Admin: 12/11/18 08:45 Dose: 120 mg Documented by: Metoprolol Tartrate (Lopressor) 100 mg PO BID [facility] Last Admin: 12/11/18 08:45 Dose: 100 mg Documented by: Nitroglycerin (Nitrostat) 0.4 mg SUBLINGUAL Q5M PRN PRN Reason: Chest Pain Last Admin: 12/10/18 09:30 Dose: 0.4 mg Documented by: Paroxetine HCl (Paxil) 20 mg PO DAILY [facility] Last Admin: 12/11/18 08:45 Dose: 20 mg Documented by: Prednisone () 40 mg PO DAILY [facility] Last Admin: 12/11/18 08:45 Dose: 40 mg Documented by: . Physical examination: VITAL SIGNS: 97.8, 66, 20, 153/67, 100% on BiPAP GENERAL: BiPAP is on, propped up in bed, appears withdrawn EYES: Pupils equal. Conjunctiva normal. HEENT: External appearance of nose and ears normal, oral cavity grossly normal. NECK: JVD possibly raised; masses not palpable. HEART: First and second heart sounds are normal; no edema. LUNGS: Respiratory rate increased, diminished breath sounds . ABDOMEN: Soft, nontender, liver spleen not palpable, no masses palpable. PSYCH: Answering questions. Wants morphine. INVESTIGATIONS, reviewed in the clinical context: No labs today Admission tests: White count 13.8, hemoglobin 7.7, platelets 462, potassium 5.2, bun 1.01, creatinine 2.38 Labs on December 01 showed a BUN of 25 and a creatinine 1.63. Creatinine was 2.67 on December 08 EKG tracing personally reviewed by me-atrial fibrillation with rate control and paced rhythm Chest x-ray film personally reviewed by me-questionable venous prominence From previous admission: Perfusion scan suspicion low for PE 2-D echo limited-moderate tricuspid regurgitation, severe pulmonary hypertension Cardiac catheterization on November [address] Arcos shows significant disease, for medical management Chest x-ray film personally reviewed by me shows cardiomegaly and some venous prominence that included the horizontal fissure 2-D echo from recently shows EF of 50-55% Assessment: -Acute kidney injury from diuresis from Lasix. , Improving -Angina in a patient with known coronary artery disease -Acute COPD exacerbation and an ex-smoker -chronic congestive heart failure exacerbation from diastolic dysfunction EF 50- 55% -Moderate tricuspid regurgitation, nontraumatic -Severe secondary pulmonary hypertension from probably COPD and CHF -Severe coronary artery disease, with history of bypass and stent, for medical management -Primary osteoarthritis -Persistent atrial flutter fibrillation, rate controlled -GERD -Hyperlipidemia -Essential hypertension -Severe peripheral arterial disease -GERD -Anxiety not otherwise specified, uncontrolled Plan: Prognosis guarded. Continue current medication treatment plan. We will use Ativan 0.5 mg every 6 when necessary for anxiety. Advanced care planning: This was done with the patient at the bedside. Had a lengthy talk with them. She wants to have hospice. Which is appropriate for this patient. They're not sure about the place of the same. She agreed to start the patient Ativan 0.5 mg every 6 for anxiety. They will talk to the hospitalist team and the case folder and decide disposition accordingly. Several questions were answered. Other medications are to continue the meantime. 20 minutes was spent for this.
[2018-12-11 16:09] VITALS: BP 136/64; RESP 28; TEMP 98
[2018-12-11 16:32] VITALS: PULSE 72
[2018-12-11] MEDS ORDERED: MORPHINE SULFATE 2 MG/ML SYRINGE IVP STA (19:49)
--- NOTE | 2018-12-13 00:33 | P.DS ---
Providers Date of admission: 12/09/18 05:13 Expected date of discharge: 12/11/18 Attending physician: Andre Stallings Consults: 12/09/18 05:13 Consult Physician Urgent Consulting Provider: [facility] Consult Reason/Comments: chest pain, s/p pacemaker this week Do you want consulting provider notified?: Yes, Notify in am 12/09/18 15:09 Consult Physician Routine Consulting Provider: Andrey Darling Consult Reason/Comments: Short of breath Do you want consulting provider notified?: Yes Primary care physician: [facility] Hospital Course: Chief Complaint: Short of breath Hospital course: This is a pleasant 73-year-old patient with rather extensive medical history. Chronic stable medical conditions include coronary artery disease, GERD, hypertension, hyperlipidemia, osteoarthritis. BiPAP. recent admission patient had ventricular fibrillation and cardiac arrest in the hospital. He has sinus bradycardia and paroxysmal atrial fibrillation. Had a dual-chamber ICD placed by Dr. Kinney. for sinus bradycardia. Patient was readmitted on December 05 and discharged on December 08. Horner to be combination of COPD exacerbation and CHF exacerbation. Patient also had acute renal failure upon discharge as creatinine gone up from baseline. Creatinine on admission was 1.95 and upon discharge was 2.67. Yesterday when patient left patient was active walking in the hallway doing much better. Was prescribed BiPAP by the pulmonary team. Patient also uncontrolled anxiety that was well controlled with Paxil. was called at home around 3 in the morning that patient had some chest pain and short of breath. Was given his BiPAP and [place]. And given his extensive cardiac history it was decided to send the patient. Admitted with acute kidney injury from diarrhea restless, COPD exacerbation, angina Patient late in the evening deteriorated rapidly. Hospice was called in. Patient will be admitted to [facility] for symptom control Discussion discharge planning more than 35 minutes Consultation: Dr. Georgette Ordoñez from cardiogenic Dr. Dias from pulmonary . Physical examination: VITAL SIGNS: 97.8, 66, 20, 153/67, 100% on BiPAP GENERAL: BiPAP is on, propped up in bed, appears withdrawn EYES: Pupils equal. Conjunctiva normal. HEENT: External appearance of nose and ears normal, oral cavity grossly normal. NECK: JVD possibly raised; masses not palpable. HEART: First and second heart sounds are normal; no edema. LUNGS: Respiratory rate increased, diminished breath sounds . ABDOMEN: Soft, nontender, liver spleen not palpable, no masses palpable. PSYCH: Answering questions. Wants morphine. INVESTIGATIONS, reviewed in the clinical context: No labs today Admission tests: White count 13.8, hemoglobin 7.7, platelets 462, potassium 5.2, bun 1.01, creatinine 2.38 Labs on December 01 showed a BUN of 25 and a creatinine 1.63. Creatinine was 2.67 on December 08 EKG tracing personally reviewed by me-atrial fibrillation with rate control and paced rhythm Chest x-ray film personally reviewed by me-questionable venous prominence From previous admission: Perfusion scan suspicion low for PE 2-D echo limited-moderate tricuspid regurgitation, severe pulmonary hypertension Cardiac catheterization on November [address] Arcos shows significant disease, for medical management Chest x-ray film personally reviewed by me shows cardiomegaly and some venous prominence that included the horizontal fissure 2-D echo from recently shows EF of 50-55% Discharge diagnosis: -Acute kidney injury from diuresis from Lasix. , Improving -Angina in a patient with known coronary artery disease -Acute COPD exacerbation and an ex-smoker -chronic congestive heart failure exacerbation from diastolic dysfunction EF 50- 55% -Moderate tricuspid regurgitation, nontraumatic -Severe secondary pulmonary hypertension from probably COPD and CHF -Severe coronary artery disease, with history of bypass and stent, for medical management -Primary osteoarthritis -Persistent atrial flutter fibrillation, rate controlled -GERD -Hyperlipidemia -Essential hypertension -Severe peripheral arterial disease -GERD -Anxiety not otherwise specified, uncontrolled Disposition: Admitted to [facility] hospice. Patient Condition at Discharge: Poor Plan - Discharge Summary Discharge Rx Participant: No New Discharge Prescriptions: No Action Potassium Chloride [Klor-Con 20] 20 meq PO DAILY Nitroglycerin Sl Tabs [Nitrostat] 0.4 mg SUBLINGUAL Q5M PRN PRN Reason: Chest Pain hydrALAZINE HCL [Apresoline] 100 mg PO TID #90 tab Aspirin 81 mg PO DAILY chew Apixaban [Eliquis] 2.5 mg PO BID tablet Isosorbide Mononitrate ER [Imdur] 120 mg PO DAILY #60 tab.er.24h Furosemide [Lasix] 40 mg PO DAILY #30 tab Atorvastatin [Lipitor] 40 mg PO HS #30 tab Metoprolol Tartrate [Lopressor] 100 mg PO BID #60 tab amLODIPine [Norvasc] 5 mg PO BID #60 tab PARoxetine [Paxil] 20 mg PO DAILY tab Budesonide [Pulmicort] 1 mg INHALATION RT-BID nebu predniSONE See Taper PO DAILY HYDROcodone/APAP 10-325MG [[place] 10-325] 1 tab PO Q4H PRN PRN Reason: Moderate Pain Ipratropium-Albuterol Nebulize [Duoneb 0.5 mg-3 mg/3 ml Soln] 3 ml INHALATION RT-QID Discharge Medication List Nitroglycerin Sl Tabs [Nitrostat] 0.4 mg SUBLINGUAL Q5M PRN 11/22/18 [History] Potassium Chloride [Klor-Con 20] 20 meq PO DAILY 11/22/18 [History] Apixaban [Eliquis] 2.5 mg PO BID tablet 12/01/18 [Rx] Aspirin 81 mg PO DAILY chew 12/01/18 [Rx] Atorvastatin [Lipitor] 40 mg PO HS #30 tab 12/01/18 [Rx] Furosemide [Lasix] 40 mg PO DAILY #30 tab 12/01/18 [Rx] Isosorbide Mononitrate ER [Imdur] 120 mg PO DAILY #60 tab.er.24h 12/01/18 [Rx] Metoprolol Tartrate [Lopressor] 100 mg PO BID #60 tab 12/01/18 [Rx] amLODIPine [Norvasc] 5 mg PO BID #60 tab 12/01/18 [Rx] hydrALAZINE HCL [Apresoline] 100 mg PO TID #90 tab 12/01/18 [Rx] Budesonide [Pulmicort] 1 mg INHALATION RT-BID nebu 12/08/18 [Rx] PARoxetine [Paxil] 20 mg PO DAILY tab 12/08/18 [Rx] HYDROcodone/APAP 10-325MG [[place] 10-325] 1 tab PO Q4H PRN 12/09/18 [History] predniSONE See Taper PO DAILY 12/09/18 [History] Ipratropium-Albuterol Nebulize [Duoneb 0.5 mg-3 mg/3 ml Soln] 3 ml INHALATION RT-QID 12/11/18 [History] Follow up Appointment(s)/Referral(s): [facility], [NON-STAFF] - Jorge Nichols DO [STAFF PHYSICIAN] - 1-2 days Discharge Disposition: DISCH TO HOSPICE MED FACILTY
== END 2018-12-11 21:44 | disposition hospice, inpatient (51) | DRG 291 ==
LOC: EC 03:13 → 3SCARD 05:13
PROVIDERS: ADMIT Hospitalist; ATTEND Hospitalist
DX: I13.0 Hypertensive heart and chronic kidney disease with heart failure and stage 1 through stage 4 chronic kidney disease, or unspecified chronic kidney disease (principal); I50.43 Acute on chronic combined systolic (congestive) and diastolic (congestive) heart failure; J44.1 Chronic obstructive pulmonary disease with (acute) exacerbation; I48.1 Persistent atrial fibrillation; I48.92 Unspecified atrial flutter; N17.9 Acute kidney failure, unspecified; J96.11 Chronic respiratory failure with hypoxia; D64.9 Anemia, unspecified; E78.5 Hyperlipidemia, unspecified; E87.5 Hyperkalemia; F41.9 Anxiety disorder, unspecified; G89.29 Other chronic pain; I36.1 Nonrheumatic tricuspid (valve) insufficiency; I25.119 Atherosclerotic heart disease of native coronary artery with unspecified angina pectoris; I25.2 Old myocardial infarction; I27.29 Other secondary pulmonary hypertension; I48.0 Paroxysmal atrial fibrillation; I73.9 Peripheral vascular disease, unspecified; K21.9 Gastro-esophageal reflux disease without esophagitis; M19.91 Primary osteoarthritis, unspecified site; Z51.5 Encounter for palliative care; N18.3 Chronic kidney disease, stage 3 (moderate); Z79.01 Long term (current) use of anticoagulants; Z79.82 Long term (current) use of aspirin; Z79.899 Other long term (current) drug therapy; Z80.9 Family history of malignant neoplasm, unspecified; Z86.010 Personal history of colon polyps; Z86.74 Personal history of sudden cardiac arrest; Z87.11 Personal history of peptic ulcer disease; Z87.891 Personal history of nicotine dependence; Z95.1 Presence of aortocoronary bypass graft; Z95.5 Presence of coronary angioplasty implant and graft; Z95.810 Presence of automatic (implantable) cardiac defibrillator
CPT/HCPCS: 36415; 71045; 80048; 80053; 80061; 83605; 83735; 83880; 84484; 85025; 85610; 85730; 93005; 94640; 94660; 94760; 99291

== ENCOUNTER 2018-12-11 19:57 | Inpatient (IN) | payer MEDICAID ==
[2018-12-11] MEDS ORDERED: ONDANSETRON 4 MG/2 ML VIAL IVP PRN (20:48)
[2018-12-11] MEDS ORDERED: BISACODYL 10 MG SUPP RECTAL PRN (20:57)
[2018-12-11] MEDS: LORazepam 2 MG/ML INJ IV PRN (21:03)
[2018-12-11] MEDS ORDERED: SCOPOLAMINE 1.5MG/72HR PATCH TRANSDERM SCH (21:30)
[2018-12-11] MEDS ORDERED: MORPHINE SULFATE (100 MG/2 ML) 100 MG in SODIUM CHLORIDE 0.9% 100 ML IV SCH (21:30)
[2018-12-11] MEDS ORDERED: DRY MOUTH SPRAY 44.3 SPRAY/44.3 ML SPRAY MUCOUS MEM PRN (21:30)
[2018-12-11] MEDS ORDERED: ACETAMINOPHEN SUPPOSITORY 650 MG SUPP RECTAL PRN (21:30)
[2018-12-12] MEDS: ATROPINE OPHTH SOLN 1% 5ML BTL SUBLINGUAL PRN ×2 (09:52→17:56)
[2018-12-12] MEDS: LORazepam 2 MG/ML INJ IV PRN ×2 (14:15→17:51)
[2018-12-12 19:58] VITALS: BP 93/52; PULSE 49; RESP 12; TEMP 97.6
--- NOTE | 2018-12-13 00:37 | P.DS ---
Providers Date of admission: 12/11/18 20:37 Expected date of discharge: 12/12/18 Attending physician: Andre Stallings Primary care physician: Stated None Hospital Course: Hospital course: Patient admitted to [facility] hospice service for symptom control. Remains comfortable. Family was present. Succumbed to the underlying disease Cause of : COPD Patient Condition at Discharge: Poor Plan - Discharge Summary Discharge Rx Participant: Yes New Discharge Prescriptions: No Action Potassium Chloride [Klor-Con 20] 20 meq PO DAILY Nitroglycerin Sl Tabs [Nitrostat] 0.4 mg SUBLINGUAL Q5M PRN PRN Reason: Chest Pain hydrALAZINE HCL [Apresoline] 100 mg PO TID #90 tab Aspirin 81 mg PO DAILY chew Apixaban [Eliquis] 2.5 mg PO BID tablet Isosorbide Mononitrate ER [Imdur] 120 mg PO DAILY #60 tab.er.24h Furosemide [Lasix] 40 mg PO DAILY #30 tab Atorvastatin [Lipitor] 40 mg PO HS #30 tab Metoprolol Tartrate [Lopressor] 100 mg PO BID #60 tab amLODIPine [Norvasc] 5 mg PO BID #60 tab PARoxetine [Paxil] 20 mg PO DAILY tab Budesonide [Pulmicort] 1 mg INHALATION RT-BID nebu predniSONE See Taper PO DAILY HYDROcodone/APAP 10-325MG [[place] 10-325] 1 tab PO Q4H PRN PRN Reason: Moderate Pain Ipratropium-Albuterol Nebulize [Duoneb 0.5 mg-3 mg/3 ml Soln] 3 ml INHALATION RT-QID Discharge Medication List Nitroglycerin Sl Tabs [Nitrostat] 0.4 mg SUBLINGUAL Q5M PRN 11/22/18 [History] Potassium Chloride [Klor-Con 20] 20 meq PO DAILY 11/22/18 [History] Apixaban [Eliquis] 2.5 mg PO BID tablet 12/01/18 [Rx] Aspirin 81 mg PO DAILY chew 12/01/18 [Rx] Atorvastatin [Lipitor] 40 mg PO HS #30 tab 12/01/18 [Rx] Furosemide [Lasix] 40 mg PO DAILY #30 tab 12/01/18 [Rx] Isosorbide Mononitrate ER [Imdur] 120 mg PO DAILY #60 tab.er.24h 12/01/18 [Rx] Metoprolol Tartrate [Lopressor] 100 mg PO BID #60 tab 12/01/18 [Rx] amLODIPine [Norvasc] 5 mg PO BID #60 tab 12/01/18 [Rx] hydrALAZINE HCL [Apresoline] 100 mg PO TID #90 tab 12/01/18 [Rx] Budesonide [Pulmicort] 1 mg INHALATION RT-BID nebu 12/08/18 [Rx] PARoxetine [Paxil] 20 mg PO DAILY tab 12/08/18 [Rx] HYDROcodone/APAP 10-325MG [[place] 10-325] 1 tab PO Q4H PRN 12/09/18 [History] predniSONE See Taper PO DAILY 12/09/18 [History] Ipratropium-Albuterol Nebulize [Duoneb 0.5 mg-3 mg/3 ml Soln] 3 ml INHALATION RT-QID 12/11/18 [History]
== END 2018-12-12 21:33 | disposition expired | DRG 951 ==
LOC: 4SSUR 20:37
PROVIDERS: ADMIT Hospitalist; ATTEND Hospitalist
DX: Z51.5 Encounter for palliative care (principal); J44.9 Chronic obstructive pulmonary disease, unspecified; Z66 Do not resuscitate